=== PATIENT | male | born 1955 | race Caucasian/White ===

== ENCOUNTER 2020-02-02 15:02 | Outpatient (REF) | payer MEDICARE, OTHER, SELFPAY ==
[2020-02-09 14:32] LABS: Renin 0.74 ng/mL/h (0.25-5.82)
[2020-02-10 11:01] LABS: Metanephrine, Free 34 pg/mL (<=57); Normetanephrines, Free 110 pg/mL (<=148); Total Metanephrine, Free 144 pg/mL (<=205)
== END 2020-02-02 15:03 | disposition home or self-care (01) ==
LOC: HO.LAB 15:02
PROVIDERS: PCP Internal Medicine; Visit Provider Internal Medicine Endocrinology, Diabetes & Metabolism
DX: E27.8 Other specified disorders of adrenal gland (principal)
CPT/HCPCS: 83835; 84244

== ENCOUNTER 2020-02-03 06:43 | Outpatient (REF) | payer MEDICARE, OTHER, SELFPAY | END 2020-02-03 06:44 | disposition home or self-care (01) | LOC: HO.LAB 06:43 | PROVIDERS: PCP Internal Medicine; Visit Provider Internal Medicine Endocrinology, Diabetes & Metabolism | DX: E27.8 Other specified disorders of adrenal gland (principal) | CPT/HCPCS: 82088; 82533 ==

== ENCOUNTER 2020-02-09 07:01 | Outpatient (REF) | payer MEDICARE, MEDICAID, SELFPAY ==
--- NOTE | 2020-02-09 07:08 | CT_ITS ---
EXAMINATION: CT ABDOMEN WITHOUT AND WITH CONTRAST CLINICAL INFORMATION: Left adrenal mass. Inconclusive CT-guided biopsy 11/17/2019. Follow-up with CT adrenal characterization. COMPARISON: CT abdomen and pelvis 11/04/2019, CT-guided left adrenal biopsy 11/17/2019. CT chest 09/09/2019, CT abdomen 03/10/2017. TECHNIQUE: CT abdomen is performed prior to and following 85 mL Omnipaque 350 contrast. Postcontrast images are obtained during both the portal venous phase and 15 minute delayed images. No oral contrast. Coronal and sagittal reformatted images are generated on the CT workstation and uploaded to PACS. DOSE LOWERING TECHNIQUES: This CT examination was performed using dose optimization techniques as appropriate, variously including the following: *Automated exposure control *Adjustment of mA and/or kV according to patient size (this includes techniques or standardized protocols for targeted exams where dose is matched to indication/reason for exam; i.e. extremities or head) *Use of iterative reconstruction technique DLP: 1061 mGy-cm FINDINGS: LUNG BASES: There is stable pleural-based nodule right posterior lateral base approximately 0.8 cm similar to prior studies dating back to 2017. There is also a 4 mm nodule series 7 image 1 right posterior lateral base similar to prior CT chest 09/09/2019. No airspace consolidation or effusion. LIVER, GALLBLADDER, AND BILIARY TREE: The liver is normal in size, shape, and attenuation. No focal hepatic lesion or biliary ductal dilatation is present. Prior cholecystectomy. Common duct unremarkable. PANCREAS: Normal. SPLEEN: Normal. Incidental stable splenule left upper quadrant, 1.3 cm. ADRENAL GLANDS: Right adrenal: Normal right adrenal. No mass or nodule. Left adrenal: There is a round mass left adrenal measuring 3.3 x 3.0 cm. Prior measurements are 3.3 x 3.[address] 11/04/2019 and 3.0 x 2.[address] 03/10/2017. The mass has coarse calcification within the nodule. There is subtle heterogeneous attenuation. The left adrenal mass density measurements are: 1. Non-contrast: 37 HU. 2. Portal venous phase: 56 HU. 3. Delayed phase: 60 HU. 4. Washout: There is no washout. Reference: Lipid rich adenoma if non-contrast density 10 HU or less. Absolute Washout = (CECT - Delay)/(CECT-NCCT) x 100% Adenoma if washout 52% or higher 10 minute delay; 60% or higher 15 minute delay. Relative Washout = (CECT - Delay)/(CECT) x 100% Adenoma if relative washout 38% or higher 10 minute delay; 40% or higher 15 minute delay. GASTROINTESTINAL TRACT: Small sliding hiatal hernia. No bowel obstruction or inflammatory changes in the bowel or mesentery. Portion appendix visualized appears normal. There is no abdominal ascites or fluid collection. ABDOMINAL WALL: No significant hernia is appreciated. LYMPH NODES: No lymphadenopathy. VASCULAR: Unremarkable. OSSEOUS STRUCTURES: No acute bony abnormality. There are scattered degenerative changes lower thoracic and lumbar spine. IMPRESSION: 1. Left adrenal mass 3.3 x 3.0 cm. Prior measurement approximately 3.0 x 2.[address] 2017. Lesion shows subtle heterogeneous enhancement with no washout on delayed imaging. The lesion remains indeterminate. No right adrenal mass. 2. Prior cholecystectomy. No ductal dilatation.
[2020-02-09 08:41] LABS: Blood Urea Nitrogen 15 mg/dL (9-16); Estimated Glomerular Filt Rate > 60
== END 2020-02-09 07:02 | disposition home or self-care (01) ==
LOC: HO.CT 07:01
PROVIDERS: PCP Internal Medicine; Visit Provider Internal Medicine Endocrinology, Diabetes & Metabolism
DX: E27.8 Other specified disorders of adrenal gland (principal)
CPT/HCPCS: 74170; 82565; 84520

== ENCOUNTER 2020-02-23 07:38 | Outpatient (REF) | payer MEDICARE, OTHER, SELFPAY ==
[2020-02-29 18:17] LABS: Dexamethasone 245 ng/dL
== END 2020-02-23 07:39 | disposition home or self-care (01) ==
LOC: HO.LAB 07:38
PROVIDERS: PCP Internal Medicine; Visit Provider Internal Medicine Endocrinology, Diabetes & Metabolism
DX: E27.8 Other specified disorders of adrenal gland (principal)
CPT/HCPCS: 80299

== ENCOUNTER 2020-03-09 08:20 | Outpatient (REF) | payer MEDICARE, OTHER, SELFPAY ==
--- NOTE | 2020-03-09 13:41 | PC.NURSE ---
Dr Santana asked for the patient to be booked for next week, I scheduled the patient for 03/15/20 at 3:30pm with Dr Santana. Patient was contacted and agreed to date and time.
[2020-03-14 15:11] LABS: Dexamethasone 383 ng/dL
[2020-03-16 15:02] LABS: Renin 0.74 ng/mL/h (0.25-5.82)
== END 2020-03-09 08:21 | disposition home or self-care (01) ==
LOC: HO.LAB 08:20
PROVIDERS: PCP Internal Medicine; Visit Provider Internal Medicine Endocrinology, Diabetes & Metabolism
DX: E27.8 Other specified disorders of adrenal gland (principal)
CPT/HCPCS: 80299; 82088; 82533; 84244

== ENCOUNTER → 2020-03-15 11:54 | Outpatient (REF) | payer MEDICARE, OTHER, SELFPAY ==
[2020-03-15 13:22] LABS: Cholesterol 136 mg/dL; HDL Cholesterol 40 mg/dL; LDL Cholesterol Calculated 53 mg/dl; Triglycerides 216 mg/dL
== END ==
LOC: HO.CARD 11:54
PROVIDERS: PCP Internal Medicine; Visit Provider Nurse Practitioner Family
DX: E78.5 Hyperlipidemia, unspecified (principal)
CPT/HCPCS: 80061

== ENCOUNTER → 2020-03-20 14:34 | Outpatient (BNVA) | payer MEDICARE, OTHER, SELFPAY | PROVIDERS: PCP Internal Medicine; Visit Provider Nurse Practitioner Family | DX: Z12.11 Encounter for screening for malignant neoplasm of colon (principal); F17.200 Nicotine dependence, unspecified, uncomplicated; Z79.82 Long term (current) use of aspirin; Z79.899 Other long term (current) drug therapy; Z79.84 Long term (current) use of oral hypoglycemic drugs | CPT/HCPCS: Q3014 ==

== ENCOUNTER → 2020-03-21 07:08 | Outpatient (REF) | payer MEDICARE, OTHER, SELFPAY ==
--- NOTE | 2020-03-21 | NM_ITS ---
Myocardial perfusion study Indication: Preoperative cardiovascular risk patient with chest paindisease with underlying coronary artery to evaluate for myocardial ischemia Technique: The patient was brought in for a Lexiscan perfusion study on 03/21/2020. Patient performed low-level exercise and was injected 0.4 mg of Lexiscan intravenously. Within a minute of injection, 25 mCi of sestamibi was given intravenously. Images were obtained using the SPECT gamma camera interlaced with the gating device. Images were obtained in supine position. Resting perfusion study was performed on 03/26/2020. Patient was administered 25 mCi of sestamibi intravenously at rest. Images were then obtained in supine position. Images obtained with and without CT attenuation. Total DLP 79 mgy-cm. Images were processed with the software and compared side to side in short axis, horizontal long axis and vertical long axis views. Findings: The stress perfusion study showed non attenuated images show moderately reduced uptake in the inferior wall of the LV myocardium and mildly reduced uptake in the apex of the LV myocardium. Remainder of the LV myocardium is normally perfused. Attenuation corrected images show mildly to moderately the basal inferior as well as mildly reduced uptake in the apex of the LV myocardium. The gated study shows normal LV systolic function with calculated LVEF of 58%. LV cavity is normal in size. The gated study shows normal systolic wall thickening and contraction of segments. Resting study shows non attenuated images show mildly reduced uptake in the basal and mid inferior wall of the LV myocardium. Attenuation corrected images show mildly reduced uptake in the apex of the LV myocardium. Gating at rest reveals normal systolic wall motion with ejection fraction at 55%. The findings are consistent with small area of mild intensity basal inferior wall ischemia. NM/NM niharika perf SPECT rest & str Impression: 1. Myocardial perfusion imaging study shows small area of mild intensity basal inferior wall ischemia 2. Gated LVEF is 58% 3. Transient ischemic dilatation not present EKG is nondiagnostic for ischemia
--- NOTE | 2020-03-21 07:10 | CA_ITS ---
Acquisition Time: 2020-03-21 08:41:29 Total Exercise Time: 00:02:00 Test Indications: I25.10 Medications: SEE CHART Protocol: LEXISCAN Max HR: 093 BPM 60% of Pred: 155 BPM Max BP: 136/076 mmHG Max Work Load: 1.0 METS Pharmacological stress test using Lexiscan, while sitting and kicking his feet. Pt tolerated well, denies any anginal sx. EKG without any arrhythmias. Non-diagnostic for ischemia. Normotensive response to exercise. Test reviewed with Dr. Ortiz Referred By: Lorraine Lara Overread By: Junior Berman
--- NOTE | 2020-03-21 07:10 | CA_ITS ---
Transthoracic Echocardiogram Patient (Last, First, Middle): Sean Hinkle, Gender: Male Date of : 1955 Age: 64 Procedure Date: 03/21/2020 Procedure Type: Transthoracic Echocardiogram Location: OP Height: 170.18 cm Weight: 104.33 kg BSA: 2.15 m2 Heart Rate: bpm BP: 130 / 68 mmHg Carriage Rider: MINRA Referring MD: Lorraine Lara FELT FINISHING SUPERVISOR-C Janitor Custodian: Jonah Umanzor MD Symptoms: I10 HTN, I25.10 CAD Study Quality: Good ECG Rhythm: Sinus Conclusions: - 1. Normal LV systolic function with impaired relaxation filling pattern 2. Normal cardiac valvular Doppler 3. Normal RV systolic pressure 4. No pericardial effusion Findings Left Ventricle Normal left ventricular size, thickness, and systolic function. The visually estimated ejection fraction is between 55-60%. Spectral Doppler is indicative of an impaired relaxation filling pattern. E/E prime ratio is between 8 and 15 consistent with indeterminate filling pressures. Right Ventricle Normal right ventricular cavity size and systolic function. Atria The left atrium is likely dilated. There is no evidence of interatrial shunt. The right atrium is normal in size. Aortic Valve Normal aortic valve structure and function. There is no aortic valve stenosis. There is no aortic valve regurgitation. Mitral Valve Normal mitral valve structure and function. There is trace mitral valve regurgitation. There is no mitral valve stenosis. Pulmonic Valve The pulmonic valve is likely normal. Tricuspid Valve Normal tricuspid valve structure. There is trace tricuspid valve regurgitation. The right ventricular systolic pressure is normal. The right ventricular systolic pressure is 24 mmHg. Great Vessels All visible segments of the aorta are normal in size. The pulmonary artery was not well visualized. Venous The inferior vena cava is normal in size and collapses greater than 50% with inspiration. Pericardium/Pleural There is no evidence of pericardial effusion. Prior Study Comparison No prior study available for comparison. Measurements 2D Linear Measurements IVSd: 1.12 0.6-0.9/0.6-1.0 cm LVIDd: 5.45 3.9-5.3/4.2-5.9 cm LVIDd Index: 2.53 2.4-3.2/2.2-3.1 cm/m2 LVIDs: 3.50 2.0-3.6 cm LVPWd: 1.12 0.7-1.1 cm Ao Root: 3.70 2.1-3.5 cm LA Diam: 3.90 2.7-3.8/3.0-4.0 cm LAIDs Index: 1.81 1.5-2.3 cm/m2 LV Mass: 304.59 67-162/88-224 g LV Mass Index: 141.67 43-95/49-115 g/m2 LVOT Diam: 2.60 3.0+(-)1.3 cm 2D Systolic Function EF 4C: 51.90 >55% EF 2C: 53.20 >55% Mitral Valve MV Pk E: 0.79 MV PK A: 1.16 MV Decel Time: 299.00 E/A: 0.70 E'Lateral: 7.54 E'Medial: 6.58 E/E' Med: 12.00 E/E' Lat: 10.50 Aortic Valve AoV Pk Mario: 1.52 AoV Mn Mario: 1.11 AoV VTI: 0.40 AoV Pk Grad: 9.00 Aov Mn Grad: 6.00 DIONTE Cont.VTI: 3.25 LVOT LVOT Pk Mario: 1.05 LVOT Mn Mario: 0.66 LVOT VTI: 0.25 LVOT Pk Grad: 4.00 LVOT Mn Grad: 2.00 LVOT Diam: 2.60 LVOT Area: 5.31 Diastolic Function MV Pk E: 0.79 MV Pk A: 1.16 E/A: 0.70 E'Medial: 6.58 E/E' Med: 12.00 E' Laterial: 7.54 E/E' Lat: 10.50 Tricuspid Valve TR Pk Mario: 2.30 TR Pk Grad: 21.00 RA Press: 3.00 RVSP: 24.00 Great Vessels Aorta Ao Root-2D: 3.70 2.0-3.7 cm Ao Asc: 3.30 2.1-3.4 cm Pulmonary Valve PV Pk Mario: 1.22 Peak PV Grad: 6.00 Updated in Other Vendor System with Status of Final Jonah Umanzor MD electronically signed on 03/21/2020 1:35:52 PM with status of Final
== END ==
LOC: HO.CARD 07:08
PROVIDERS: PCP Internal Medicine; Visit Provider Nurse Practitioner Family
DX: Z01.810 Encounter for preprocedural cardiovascular examination (principal); R07.9 Chest pain, unspecified; I25.10 Atherosclerotic heart disease of native coronary artery without angina pectoris; I10 Essential (primary) hypertension; E66.9 Obesity, unspecified; E11.9 Type 2 diabetes mellitus without complications
CPT/HCPCS: 78452; 93017; 93306; A9500; J0280; J2785

== ENCOUNTER → 2020-03-29 10:08 | Outpatient (BNVA) | payer MEDICARE, OTHER, SELFPAY | PROVIDERS: PCP Internal Medicine; Visit Provider Nurse Practitioner Family | DX: Z13.89 Encounter for screening for other disorder (principal) | CPT/HCPCS: Q3014 ==

== ENCOUNTER 2020-04-06 11:28 | Day surgery (SDC) | payer MEDICARE, OTHER, SELFPAY ==
--- NOTE | 2020-04-04 15:00 | P.CONAN_ITS ---
Documented by User: Brisa Dawson 04/04/20 15:09 HPI - Anesthesia Eval Consult details Narrative: 64yo M for Upper Endoscopy and Colonoscopy Recent cardiac w/u for [place] for [place] [facility] [place] [facility] cardiac risk. [facility] Past Medical History Medical History Anxiety and depression Back pain BPH (benign prostatic hyperplasia) CAD (coronary artery disease) Chest pain COPD (chronic obstructive pulmonary disease) Cough Diabetes mellitus HLD (hyperlipidemia) HTN (hypertension) Hyperthyroidism Left adrenal mass Lung nodule Obesity Smoker Family History Family History Father Cancer Mother Lung cancer Brother Heart attack Surgical History Surgical History History of cardiac cath Hx of colonoscopy Hx of esophagogastroduodenoscopy Social History Social History (Updated 04/06/20 @ 12:18 by Aye Phoenix) Alcohol intake: current Alcohol intake frequency: does not drink Smoking Status: Current every day smoker Packs Per Day: 1 Smoked in Last 30 Days: Yes Use of substances other than those prescribed or required for medical reasons: No Substance Use Type: Marijuana Advance Directives: No Advance Directives Information Provided: Yes Advance Directives Date on File: 02/09/20 Recently lost weight without trying: No Meds Allergies Allergy/AdvReac Type Severity Reaction Status Date / Time Penicillins [PENICILLINS] Allergy Severe THROAT Verified 03/20/20 14:35 SWELLING penicillin V Allergy Unknown anaphylaxis Verified 03/20/20 14:35 Home Medications Medication Instructions Recorded Confirmed Type aspirin 81 mg tablet,delayed 81 mg PO BEDTIME 03/15/20 03/29/20 History release atorvastatin 40 mg tablet 40 mg PO BEDTIME 03/15/20 03/29/20 History cyclobenzaprine 10 mg tablet 10 mg PO TID 03/15/20 03/29/20 History dexamethasone 1 mg tablet 1 mg PO BEDTIME 03/15/20 03/29/20 History doxycycline monohydrate 100 mg 100 mg PO DAILY 03/15/20 03/29/20 History capsule esomeprazole magnesium 40 mg 40 mg PO DAILY 03/15/20 03/29/20 History capsule,delayed release fenofibrate nanocrystallized 48 mg 48 mg PO QAM 03/15/20 03/29/20 History tablet fluoxetine 40 mg capsule 40 mg PO DAILY 03/15/20 03/29/20 History glipizide 10 mg tablet, extended 10 mg PO DAILY 03/15/20 03/29/20 History release 24 hr hydroxyzine HCl 50 mg tablet 50 mg PO BEDTIME 03/15/20 03/29/20 History ibuprofen 800 mg tablet 800 mg PO TID PRN 03/15/20 03/29/20 History isosorbide mononitrate 60 mg 60 mg PO QAM 03/15/20 03/29/20 History tablet,extended release 24 hr lisinopril 10 1 tab PO QAM 03/15/20 03/29/20 History mg-hydrochlorothiazide 12.5 mg tablet metformin 1,000 mg tablet 1,000 mg PO DAILY 03/15/20 03/29/20 History methimazole 5 mg tablet 5 mg PO QAM 03/15/20 03/29/20 History tamsulosin 0.4 mg capsule 0.4 mg PO BEDTIME 03/15/20 03/29/20 History Exam Exam Date and Time: April 04, 2020 1500 Pertinent Lab Results Pertinent Lab Results: Laboratory Tests 11/17/19 11/17/19 02/09/20 05:13 05:13 08:08 WBC 10.3 Hgb 14.2 Hct 42.9 Plt Count 191 Sodium 139 Potassium 4.8 Chloride 101 BUN 15 Creatinine 0.97 Narrative Narrative: EKG 02/2020: SR, old inferior Q waves, no changes. Echo done 03/21 shows EF 55-60%, impaired relaxation, no valve abn. Nuclear stress test 03/21 shows small area of mild basal inferior wall ischemia, no TID. Low risk study. Assessment and Plan Assessment Anesthesia Assessment: Chart Reviewed Documented by User: Aye Phoenix 04/06/20 12:47 PMF Past Medical History Medical History Anxiety and depression Back pain BPH (benign prostatic hyperplasia) CAD (coronary artery disease) Chest pain COPD (chronic obstructive pulmonary disease) Cough Diabetes mellitus HLD (hyperlipidemia) HTN (hypertension) Hyperthyroidism Left adrenal mass Lung nodule Obesity Smoker Family History Family History Father Cancer Mother Lung cancer Brother Heart attack Family history of problems with anesthesia: No Surgical History Surgical History History of cardiac cath Hx of colonoscopy Hx of esophagogastroduodenoscopy History of Problems with Anesthesia: No Social History Social History (Updated 04/06/20 @ 12:18 by Aye Phoenix) Alcohol intake: current Alcohol intake frequency: does not drink Smoking Status: Current every day smoker Packs Per Day: 1 Smoked in Last 30 Days: Yes Use of substances other than those prescribed or required for medical reasons: No Substance Use Type: Marijuana Advance Directives: No Advance Directives Information Provided: Yes Advance Directives Date on File: 02/09/20 Recently lost weight without trying: No Meds Allergies Allergy/AdvReac Type Severity Reaction Status Date / Time Penicillins [PENICILLINS] Allergy Severe THROAT Verified 03/20/20 14:35 SWELLING penicillin V Allergy Unknown anaphylaxis Verified 03/20/20 14:35 Home Medications Medication Instructions Recorded Confirmed Type aspirin 81 mg tablet,delayed 81 mg PO BEDTIME 03/15/20 03/29/20 History release atorvastatin 40 mg tablet 40 mg PO BEDTIME 03/15/20 03/29/20 History cyclobenzaprine 10 mg tablet 10 mg PO TID 03/15/20 03/29/20 History dexamethasone 1 mg tablet 1 mg PO BEDTIME 03/15/20 03/29/20 History doxycycline monohydrate 100 mg 100 mg PO DAILY 03/15/20 03/29/20 History capsule esomeprazole magnesium 40 mg 40 mg PO DAILY 03/15/20 03/29/20 History capsule,delayed release fenofibrate nanocrystallized 48 mg 48 mg PO QAM 03/15/20 03/29/20 History tablet fluoxetine 40 mg capsule 40 mg PO DAILY 03/15/20 03/29/20 History glipizide 10 mg tablet, extended 10 mg PO DAILY 03/15/20 03/29/20 History release 24 hr hydroxyzine HCl 50 mg tablet 50 mg PO BEDTIME 03/15/20 03/29/20 History ibuprofen 800 mg tablet 800 mg PO TID PRN 03/15/20 03/29/20 History isosorbide mononitrate 60 mg 60 mg PO QAM 03/15/20 03/29/20 History tablet,extended release 24 hr lisinopril 10 1 tab PO QAM 03/15/20 03/29/20 History mg-hydrochlorothiazide 12.5 mg tablet metformin 1,000 mg tablet 1,000 mg PO DAILY 03/15/20 03/29/20 History methimazole 5 mg tablet 5 mg PO QAM 03/15/20 03/29/20 History tamsulosin 0.4 mg capsule 0.4 mg PO BEDTIME 03/15/20 03/29/20 History Exam Height,Weight and Vital Signs: Vital Signs Temp Pulse Resp BP Pulse Ox 04/06/20 11:47 97.5 F 66 18 146/62 H 96 Pertinent Lab Results Pertinent Lab Results: Lab Results 04/06/20 Range/Units 11:45 POC Glucose 106 (60-115) mg/dL Airway Mallampati Class: I TM Dist: >3cm Neck ROM: Full Denture: Upper and Lower Heart: RRR Lungs: CTAB Assessment and Plan Assessment Anesthesia Assessment: Anesthesia Plan Discussed and Chart Reviewed Final Anesthetic Review NPO: Yes ASA Class: III Final Preanesthetic Review: No Changes in Pt Med Stat, Meds/Allgs Chart Reviewed, Consent Obtained/Reviewed and Anes Risks/Benef Reviewed Patient Risk: Intermediate Procedure Risk: Low Anesthetic Plan Anesthetic Plan: MAC: Disposition: Standard PACU
[2020-04-06 11:33] VITALS: BMI 36.3
[2020-04-06 11:47] VITALS: BP 146/62; PULSE 66; RESP 18; TEMP 36.4; O2SAT 96
[2020-04-06 11:49] LABS: Glucose, Whole Blood 106 mg/dL (60-115)
[2020-04-06] MEDS: Lactated Ringers 1,000 ML 100 ML IVCONT (11:53)
--- NOTE | 2020-04-06 12:02 | W.PM.OPN ---
Operative Note Operative Note Date of Service: 04/06/20 Narrative: Pre-op diagnosis: Colon cancer screening, hx of colon polyps, GERD Post-op diagnosis: other (Colon polyps, diverticulosis, hemorrhoids, Gastritis, Gastric and duodenal nodules) Procedure: FLEXIBLE TRANSORAL UPPER GASTROINTESTINAL ENDOSCOPY WITH BIOPSIES AND COLONOSCOPY TILL CECUM WITH BIOPSIES AND SNARE POLYPECTOMY UPPER ENDOSCOPY Consent: Indications for the procedure and potential complications of bleeding, perforation, reaction to medications and missed diagnosis were discussed with the patient and informed consent was obtained. Instrument: Olympus GIF H 190 mid size upper endoscope Monitoring: Vital signs and clinical assessment, continuous EKG monitoring, Pulse oximetry, Carbon Dioxide monitoring and blood pressure monitoring were done throughout the procedure. Procedure: The patient was placed in the left lateral decubitis position and pre-procedure medications were administered and a bite block was placed. The endoscope was inserted into the mouth and advanced under direct vision to the third part of duodenum. A careful inspection was made as the upper endoscope was withdrawn including a retroflexed examination of the proximal stomach; Findings and interventions are described below. Findings: Larynx: Normal Esophagus: GE junction at 40 cms. No esophagitis. Stomach: Mild gastric erythema - Biopsies were obtained. A 10-12 mm benign appearing nodule in the antrum - biopsied. . Grade 2 flap valve on retroflexed examination of the cardia. Duodenum: Prominent folds/nodule in the apex of the bulb - biopsied. Normal descending duodenum Intervention: Biopsies as noted above COLONOSCOPY PROCEDURE NOTE Consent: Indications for the procedure and potential complications of bleeding, perforation, reaction to medications and missed diagnosis were discussed with the patient and informed consent was obtained. Instrument: Olympus PCF H 190 L variable stiffness pediatric colonoscope Monitoring: Vital signs and clinical assessment, intermittent blood pressure monitoring, continuous EKG monitoring, Pulse oximetry and Carbon Dioxide monitoring were done throughout the procedure. Colon withdrawl time was 28 minutes. Procedure: The patient was placed in the left lateral decubitis position and pre-procedure medications were administered. After a digital rectal examination of the ano-rectum, the video colonoscope was inserted into the rectum and advanced through the colon to the cecum. The colonoscope was slowly withdrawn in a retrograde panoramic fashion and the colon mucosa was carefully examined including a retroflexed view of the rectum. Findings and interventions are described below. Procedure Difficulty: Without difficulty Findings: Terminal Ileum: Not evaluated Cecum: A 10 mm sessile polyp removed with a cold snare and polyp was not retrieved. Two 7-8 mm sessile polyps removed with a cold bx. Ascending Colon: A 10 mm sessile polyp removed by a cold snare and polyp was not retrieved. Transverse Colon: A 15 mm sessile polyp removed with a hot snare. Descending Colon: Normal Sigmoid Colon: A few 5-10 mm diminutive polyps - two were biopsied. Moderate diverticulosis Rectum: Normal Ano-rectum: Moderate internal hemorrhoids Colon preparation: Good after some irrigation Impression and Post Procedure Diagnosis: Endoscopy Findings: STOMACH: Mild gastric erythema - Biopsies were obtained. A 10-12 mm benign appearing nodule in the antrum - biopsied. Grade 2 flap valve on retroflexed examination of the cardia. DUODENUM: Prominent folds/nodule in the apex of the bulb - biopsied. Normal descending duodenum Colonoscopy Findings: Five polyps removed (two polyps were not retrieved. A few 5-10 mm diminutive polyps - two were biopsied. Moderate diverticulosis seen in the sigmoid colon Moderate hemorrhoids on retroflexed exam. Plan: Await pathology results Patient to schedule a FU appt in the GI Clinic with Repeat Colonoscopy interval based on path results - in 5 years if polyps are adenomatous and due to a history of colon polyps.. Above findings were reviewed with the patient and colon polyps and diverticulosis handouts were given in the discharge area Surgeon: Nilay Del Rosario MD Anesthesia: MAC (ANDREW Gentile) Estimated blood loss (mL): 0 Pathology: other (A. Gastric antrum, B. Gastric nodule, C. Nodule duodenal bulb, D. AC polyps x 2, E. TC polyp x 1, F. SC polyps) Condition: stable Disposition: PACU
--- NOTE | 2020-04-06 12:02 | MHC.SHP ---
Pre-Procedural Eval Section A The patient is an INPATIENT: No Changes since office visit: Yes Patient answered all questions; No Cold of Flu in the past 2 weeks, No New Medical Problems and No Changes in Medication The History & Physical has been completed within 30 days and I have reviewed it.: Yes Section B Chief Complaint: screening,atypical chest pain Allergies: Allergies Allergy/AdvReac Type Severity Reaction Status Date / Time Penicillins [PENICILLINS] Allergy Severe THROAT Verified 03/20/20 14:35 SWELLING penicillin V Allergy Unknown anaphylaxis Verified 03/20/20 14:35 Plan Patient has been examined and remains a candidate for the planned procedure
[2020-04-06] MEDS: Albuterol Sulfate (0.083%) 2.5 MG/3 ML VIAL.NEB INHALE (12:45)
[2020-04-06 12:48] VITALS: PULSE 72
[2020-04-06 14:01] VITALS: BP 151/22; PULSE 77; RESP 20; TEMP 36.1; O2SAT 95
[2020-04-06 14:16] VITALS: BP 140/75; PULSE 71; RESP 23; TEMP 36.1; O2SAT 94
== END 2020-04-06 14:53 | disposition home or self-care (01) ==
PROVIDERS: PCP Internal Medicine; Visit Provider Internal Medicine Gastroenterology
PROC: (CPT 45385; principal; 2020-04-06 13:10)
DX: Z12.11 Encounter for screening for malignant neoplasm of colon (principal); D12.0 Benign neoplasm of cecum; D12.3 Benign neoplasm of transverse colon; K63.5 Polyp of colon; K57.30 Diverticulosis of large intestine without perforation or abscess without bleeding; K64.8 Other hemorrhoids; K29.70 Gastritis, unspecified, without bleeding; K21.9 Gastro-esophageal reflux disease without esophagitis; Z86.010 Personal history of colon polyps; R07.89 Other chest pain; E11.9 Type 2 diabetes mellitus without complications; I25.10 Atherosclerotic heart disease of native coronary artery without angina pectoris; Z79.82 Long term (current) use of aspirin; Z79.84 Long term (current) use of oral hypoglycemic drugs; Z88.0 Allergy status to penicillin
CPT/HCPCS: 45385; 45380; 43239; 82947; 88305; 88342; 94640

== ENCOUNTER 2020-05-04 20:43 | Emergency (ER) | payer MEDICARE, OTHER, SELFPAY ==
[2020-05-04 20:45] VITALS: BP 140/77; PULSE 86; RESP 24; TEMP 37; O2SAT 94; BMI 36.0
--- NOTE | 2020-05-04 23:37 | PC.NURSE ---
Pt waiting to be seen, no sign of distress.
--- NOTE | 2020-05-05 00:57 | CT_ITS ---
EXAMINATION: CT ANGIOGRAM OF THE CHEST WITH AND WITHOUT CONTRAST (CT PULMONARY ANGIOGRAM FOR PE) CT ABDOMEN AND PELVIS WITH CONTRAST CLINICAL INFORMATION: Chest pain, status post adrenal resection. Left lower quadrant pain. Distention. COMPARISON: 09/09/2019 and 11/04/2019 TECHNIQUE: Prior to contrast administration, noncontrast localization images were obtained. Subsequently, multidetector volumetric imaging was performed from the thoracic inlet to below the diaphragms following the administration of 85 mL Omnipaque 350 intravenous contrast. This was followed by multidetector acquisition of the abdomen and pelvis. No contrast reaction reported Sagittal, coronal, and MIP oblique sagittal reformatted images were obtained on the CT workstation, uploaded to PACS, and reviewed. Total exam dose-length product 1266 mGy-cm FINDINGS: QUALITY OF STUDY/CONTRAST BOLUS: Satisfactory. PULMONARY ARTERIES: No central or segmental pulmonary emboli. THORACIC AORTA: No aneurysm or dissection. LUNG: The central airways are patent. Mild bronchial wall thickening noted. Dependent atelectasis. Somewhat nodular appearance at the posterior right base measuring 0.8 cm may be atelectatic, with no nodule previously present. PLEURA: No pleural effusion or pneumothorax. MEDIASTINUM: Normal heart size. No pericardial effusion. No hilar or mediastinal lymphadenopathy. No evidence of septal bowing or right heart strain. CHEST WALL/AXILLA: No axillary or internal mammary lymphadenopathy. Gas in the soft tissues of the left chest wall extending inferiorly. LIVER, GALLBLADDER, AND BILIARY TREE: The liver is normal in size, shape, and attenuation. No focal hepatic lesion or biliary ductal dilatation is present. Cholecystectomy. PANCREAS: Unremarkable. SPLEEN: Unremarkable. ADRENAL GLANDS: The right adrenal gland is unremarkable. Resection of the left adrenal gland with a pocket of fluid and gas at the site of resection. Additional scattered gas seen near the spleen. Minimal free intraperitoneal air noted. KIDNEYS AND URETERS: The kidneys are normal in size, shape, and attenuation. No hydronephrosis, hydroureter, or calculi seen. Mild symmetric perinephric stranding. BLADDER: Unremarkable. GASTROINTESTINAL TRACT: The stomach is unremarkable. Normal caliber small bowel. No obstruction. Normal appendix. No colonic wall thickening or acute inflammatory change. No significant free fluid. ABDOMINAL WALL: Bilateral fat-containing inguinal hernias. Small amount of gas along the left abdominal wall soft tissues. LYMPH NODES: Normal. VASCULAR: Normal caliber aorta with mild atherosclerotic calcification. PELVIC VISCERA: The prostate and seminal vesicles are unremarkable. OSSEOUS STRUCTURES: No acute or suspicious osseous abnormality. Degenerative changes throughout the spine. CT/CT angio chest PE protocol IMPRESSION: 1. No pulmonary embolism. 2. Dependent atelectasis in the lungs. 0.8 cm right basilar nodular opacity may be atelectatic, as it is not seen on prior chest CT. That said, suggest 3 month follow-up chest CT to reevaluate. 3. Postsurgical changes of left adrenal gland resection. Gas present at the resection site and along the chest and abdominal wall. Minimal free intraperitoneal air. VTE: negative
[2020-05-05 01:20] VITALS: PULSE 73; O2SAT 96
[2020-05-05] MEDS: Albuterol Sulfate (0.083%) 2.5 MG/3 ML VIAL.NEB INHALE (01:20)
[2020-05-05 01:24] LABS: Basophils Percent Auto 0.3 % (0-2); Eosinophils Absolute Auto 0.1 X10*3/uL (0.0-0.4); Eosinophils Percent Auto 0.8 % (0-4); Hematocrit 43.6 % (42-52); Hemoglobin 14.8 g/dl (14.0-18.0); Imm Gran Abs Auto 0.04 X10*3/uL (0.00-0.03); Imm Gran Pct Auto 0.3 % (0.0-0.4); Lymphocytes Absolute Auto 3.2 X10*3/uL (1.2-4.9); Lymphocytes Percent Auto 25.7 % (20-40); MANUAL DIFF FLAG NO; Mean Corpuscular HGB Conc 33.9 g/dl (31.0-36.0); Mean Corpuscular Hemoglobin 30.2 pg (27.0-33.0); Mean Platelet Volume 9.2 fL (9.4-12.4); Monocytes Percent Auto 8.1 % (2-11); Neutrophils Percent Auto 64.8 % (45-73); Platelet Count 190 X10*3/uL (160-400); White Blood Count 12.4 X10*3/uL (4.8-10.8)
[2020-05-05 01:28] VITALS: O2SAT 93
[2020-05-05] MEDS: ondansetron HCL 4 MG/2 ML VIAL IVPUSH (01:28)
[2020-05-05] MEDS: Morphine Sulfate 4 MG/ML CARTRIDGE IVPUSH ×2 (01:28→04:16)
[2020-05-05] MEDS: 0.9 % Sodium Chloride 1,000 ML 999 ML IV (01:29)
[2020-05-05 01:30] LABS: Prothrombin Time 11.5 SEC (10.8-13.0)
[2020-05-05 01:33] LABS: Partial Thromboplastin Time 28.1 SEC (24.1-38.0)
[2020-05-05 01:36] VITALS: RESP 30
[2020-05-05 01:42] LABS: Lactic Acid 1.7 mmol/L (0.5-2.0)
[2020-05-05 01:46] LABS: Alanine Aminotransferase 22 U/L (0-40); Albumin Level 4.2 g/dL (3.5-5.0); Alkaline Phosphatase 58 U/L (39-117); Anion Gap 15 (12-20); Aspartate Amino Transferase 18 U/L (5-37); Bilirubin Total 0.5 mg/dL (0.0-1.0); Blood Urea Nitrogen 15 mg/dL (9-16); Calcium 9.1 mg/dL (8.4-10.2); Carbon Dioxide 28 mmol/L (22-29); Chloride 100 mmol/L (96-108); Creatinine Clr Calc Pharmacy 95.2; Estimated Glomerular Filt Rate > 60; Glucose Random 125 mg/dL (60-115); Potassium 4.2 mmol/l (3.3-5.1); Sodium 139 mmol/L (135-145); Total Protein 6.9 g/dL (6.5-8.0)
[2020-05-05] MEDS: iohexoL 350 MG/ML 100 ML INFUS..BTL 85 ML IV (03:01)
--- NOTE | 2020-05-05 03:28 | ED_ITS ---
HPI - General Adult General Chief complaint: General Medical Stated complaint: SOB Time Seen by Provider: 05/05/20 00:57 Source: patient Mode of arrival: ambulatory Limitations: no limitations History of Present Illness HPI narrative: 64-year-old male who presents emergency department for evaluation chest pain, shortness of breath and abdominal pain. The patient had a left adrenal gland resection done on Thursday, (3 days prior) at [facility]. The patient that he had sudden onset shortness of breath and chest pain Thursday night. He describes the chest pain as a tightness across his posterior chest between his shoulders. The pain is worse with breathing and with coughing. He states that he is feeling short of breath and has dyspnea on exertion. He has had a cough which is nonproductive. He states he felt hot and cold at home and has had cold sweats. He has also had multiple episodes of loose diarrheal stool with no blood in the stool. The also states that the left lower quadrant surgical site has changed color. He has also had increased abdominal pain in the left lower quadrant area which he describes as a sharp pain which is worse with movement and with coughing. Related Data Home Medications Medication Instructions Recorded Confirmed aspirin 81 mg tablet,delayed 81 mg PO BEDTIME 03/15/20 03/29/20 release atorvastatin 40 mg tablet 40 mg PO BEDTIME 03/15/20 03/29/20 cyclobenzaprine 10 mg tablet 10 mg PO TID 03/15/20 03/29/20 dexamethasone 1 mg tablet 1 mg PO BEDTIME 03/15/20 03/29/20 doxycycline monohydrate 100 mg 100 mg PO DAILY 03/15/20 03/29/20 capsule esomeprazole magnesium 40 mg 40 mg PO DAILY 03/15/20 03/29/20 capsule,delayed release fenofibrate nanocrystallized 48 mg 48 mg PO QAM 03/15/20 03/29/20 tablet fluoxetine 40 mg capsule 40 mg PO DAILY 03/15/20 03/29/20 glipizide 10 mg tablet, extended 10 mg PO DAILY 03/15/20 03/29/20 release 24 hr hydroxyzine HCl 50 mg tablet 50 mg PO BEDTIME 03/15/20 03/29/20 ibuprofen 800 mg tablet 800 mg PO TID PRN 03/15/20 03/29/20 isosorbide mononitrate 60 mg 60 mg PO QAM 03/15/20 03/29/20 tablet,extended release 24 hr lisinopril 10 1 tab PO QAM 03/15/20 03/29/20 mg-hydrochlorothiazide 12.5 mg tablet metformin 1,000 mg tablet 1,000 mg PO DAILY 03/15/20 03/29/20 methimazole 5 mg tablet 5 mg PO QAM 03/15/20 03/29/20 tamsulosin 0.4 mg capsule 0.4 mg PO BEDTIME 03/15/20 03/29/20 Previous Rx's Medication Instructions Recorded methylcellulose (laxative) 500 mg 500 mg PO DAILY #30 tab 03/20/20 tablet morphine 15 mg PO Q4H PRN #15 tab 05/05/20 Allergies Allergy/AdvReac Type Severity Reaction Status Date / Time Penicillins [PENICILLINS] Allergy Severe THROAT Verified 03/20/20 14:35 SWELLING penicillin V Allergy Unknown anaphylaxis Verified 03/20/20 14:35 Review of Systems Review of Systems: Yes all other systems are reviewed and are negative Neurologic: Reports Abnormal speech present [facility] Past Medical History Medical History Anxiety and depression Back pain BPH (benign prostatic hyperplasia) CAD (coronary artery disease) Chest pain COPD (chronic obstructive pulmonary disease) Cough Diabetes mellitus HLD (hyperlipidemia) HTN (hypertension) Hyperthyroidism Left adrenal mass Lung nodule Obesity Smoker Surgical History History of cardiac cath Hx of colonoscopy Hx of esophagogastroduodenoscopy Family History Family History Father Cancer Mother Lung cancer Brother Heart attack Social History Social History Alcohol intake: unknown Smoking Status: Current every day smoker Packs Per Day: 1 Smoked in Last 30 Days: Yes Use of substances other than those prescribed or required for medical reasons: Yes Substance Use Type: Marijuana Substance Use Frequency: Daily Advance Directives: No Advance Directives Date on File: 02/09/20 Physical Exam Vital Signs: Vital Signs: Last Vital Signs Temp 98.6 F 05/04/20 20:45 Pulse 73 05/05/20 01:20 Resp 30 H 05/05/20 01:36 BP 140/77 H 05/04/20 20:45 Pulse Ox 93 05/05/20 01:28 Body Mass Index 36.0 Const: General: cooperative and in distress (Secondary to pain and appears to be short of breath) moderate Orientation/consciousness: oriented to person and oriented to place Limitations: no limitations HENMT: Head: Yes normal to inspection, Yes normocephalic and Yes atraumatic Ears: external ears normal General nose exam: Normal external nose present Face and sinus: Yes normal facial exam Mouth: Normal oral and palatal mucosa present Throat: Yes posterior oropharynx normal Eyes: Periorbital: periorbital findings normal Eyelids: Yes eyelids normal Conjunctivae: conjunctivae normal Sclerae: sclerae normal Corneas: corneas normal Pupils: Equal, round and reactive pupils present Direct Ophthalmoscopy: normal light reflex Neck: Neck: Yes full ROM, Yes no lymphadenopathy, Yes no meningeal signs, Yes trachea midline and Yes supple Chest: Chest palpation & inspection: normal inspection of the chest and normal palpation of entire chest wall Resp: Effort & Inspection: able to speak in complete sentences, audible wheezes and labored (Moderate) Auscultation: wheezes throughout Cardio: Rate: regular rate Rhythm: regular rhythm Heart sounds: S1 normal heart sound present, S2 normal heart sound present and no murmurs GI: Inspection: Yes normal to inspection Palpation (GI): Soft to palpation, Tenderness to palpation present (GI) in the LUQ (Moderate) and other (Ecchymosis with no erythema or increased warmth LLQ surgical site), no guar ding, not rigid and No hepatosplenomegaly present : General: Yes no CVA tenderness Back/Spine/Pelvis: Back: no CVA tenderness Cervical Spine: normal cervical lordosis Thoracic/Lumbar Spine: thoracic and lumbar spine normal to inspection Skin: Lesions: no lesions Rashes: no rashes Wounds: no wounds Neuro: General: oriented to person, oriented to place and no meningeal signs Cranial nerves: Yes Equal, round and reactive pupils present Cognition (Neuro): normal cognition Speech: Abnormal speech present Motor exam (neuro): 5/5 motor strength present throughout Extrem: General: Yes normal to inspection and Yes full ROM Psych: Appearance: well kempt Mental Status: mental status grossly normal Speech and movement: Normal speech and movement present Affect: normal affect Attitude: cooperative Thought process: Normal thought process present Thought content: Normal thought content present Course Course Course Narrative: 64-year-old male with a recent laparoscopic left adrenal gland resection who presents to emergency department for evaluation chest pain and left-sided abdominal pain. On presentation the patient was wheezing and did appear to be in distress secondary to his pain. He did have discoloration of the left lower quadrant surgical site which I believe is consistent with ecchymosis and not infection. He does have significant tenderness however with palpation of this area. I am that he may have intra-abdominal infection verses a pulmonary embolism. Therefore I ordered a CT scan of the chest abdomen and pelvis. There was also ordered to get morphine, Zofran and normal saline IV. I s also given albuterol nebulizer for his shortness of breath and wheezing. 0337: The patient's laboratory evaluation [place] an [place] [id number] otherwise was un[address]able. The CT pulmonary angiogram revealed no acute pulmonary embolism. CT abdomen pelvis with IV contrast revealed no acute process but the patient does have intra-abdominal air which is econdary to his recent laparoscopic surgery. The patient does feel significantly better after receiving the morphine and albuterol. The patient was ordered to get a 2nd dose of morphine 4 mg IV. The patient's pain is most likely secondary to postoperative pain and is not taking any medications at home therefore is given a prescription for morphine 15 mg every 4 hours as needed for pain. He was given printed instructions discharged home. He is advised to contact his surgeon at [facility] for re-evaluation within 2 days. [facility] search revealed multiple prescriptions for gabapentin and oxycodone for the patient's chronic pain. Given his recent surgery in severity of his pain, I do think that a morphine prescription is appropriate. Medical Decision Making Lab Data Result diagrams: 05/05/20 01:16 05/05/20 01:16 Labs: Lab Results 05/05/20 05/05/20 05/05/20 Range/Units 01:16 01:16 01:16 WBC 12.4 H (4.8-10.8) X10*3/uL RBC 4.90 (4.60-5.80) X10*6/uL Hgb 14.8 (14.0-18.0) g/dl Hct 43.6 (42-52) % MCV 89.0 (80-98) fL MCH 30.2 (27.0-33.0) pg MCHC 33.9 (31.0-36.0) g/dl RDW 13.0 (11.0-16.0) % Plt Count 190 (160-400) X10*3/uL MPV 9.2 L (9.4-12.4) fL Immature Gran % (Auto) 0.3 (0.0-0.4) % Neut % (Auto) 64.8 (45-73) % Lymph % (Auto) 25.7 (20-40) % [place] % (Auto) 8.1 (2-11) % Eos % (Auto) 0.8 (0-4) % Baso % (Auto) 0.3 (0-2) % Lymph # (Auto) 3.2 (1.2-4.9) X10*3/uL [place] # (Auto) 1.0 (0.1-1.2) X10*3/uL Eos # (Auto) 0.1 (0.0-0.4) X10*3/uL Baso # (Auto) 0.0 (0.0-0.2) X10*3/uL Abs Immat Gran (auto) 0.04 H (0.00-0.03) X10*3/uL Absolute Neuts (auto) 8.0 (2.0-8.3) X10*3/uL Absolute Nucleated RBC 0.000 (0.0-0.012) X10*3/uL Nucleated RBC % (auto) 0.0 (0.0-0.2) /100WBC PT 11.5 (10.8-13.0) SEC INR 1.0 (0.9-1.1) APTT 28.1 (24.1-38.0) SEC Sodium (135-145) mmol/L Potassium (3.3-5.1) mmol/l Chloride (96-108) mmol/L Carbon Dioxide (22-29) mmol/L Anion Gap (12-20) BUN (9-16) mg/dL Creatinine (0.5-1.4) mg/dL Estim Creat Clear Calc Estimated GFR Random Glucose (60-115) mg/dL Lactic Acid 1.7 (0.5-2.0) mmol/L Calcium (8.4-10.2) mg/dL Total Bilirubin (0.0-1.0) mg/dL AST (5-37) U/L ALT (0-40) U/L Alkaline Phosphatase (39-117) U/L Total Protein (6.5-8.0) g/dL Albumin (3.5-5.0) g/dL 05/05/20 Range/Units 01:16 WBC (4.8-10.8) X10*3/uL RBC (4.60-5.80) X10*6/uL Hgb (14.0-18.0) g/dl Hct (42-52) % MCV (80-98) fL MCH (27.0-33.0) pg MCHC (31.0-36.0) g/dl RDW (11.0-16.0) % Plt Count (160-400) X10*3/uL MPV (9.4-12.4) fL Immature Gran % (Auto) (0.0-0.4) % Neut % (Auto) (45-73) % Lymph % (Auto) (20-40) % [place] % (Auto) (2-11) % Eos % (Auto) (0-4) % Baso % (Auto) (0-2) % Lymph # (Auto) (1.2-4.9) X10*3/uL [place] # (Auto) (0.1-1.2) X10*3/uL Eos # (Auto) (0.0-0.4) X10*3/uL Baso # (Auto) (0.0-0.2) X10*3/uL Abs Immat Gran (auto) (0.00-0.03) X10*3/uL Absolute Neuts (auto) (2.0-8.3) X10*3/uL Absolute Nucleated RBC (0.0-0.012) X10*3/uL Nucleated RBC % (auto) (0.0-0.2) /100WBC PT (10.8-13.0) SEC INR (0.9-1.1) APTT (24.1-38.0) SEC Sodium 139 (135-145) mmol/L Potassium 4.2 (3.3-5.1) mmol/l Chloride 100 (96-108) mmol/L Carbon Dioxide 28 (22-29) mmol/L Anion Gap 15 (12-20) BUN 15 (9-16) mg/dL Creatinine 0.89 (0.5-1.4) mg/dL Estim Creat Clear Calc 95.2 Estimated GFR > 60 Random Glucose 125 H (60-115) mg/dL Lactic Acid (0.5-2.0) mmol/L Calcium 9.1 (8.4-10.2) mg/dL Total Bilirubin 0.5 (0.0-1.0) mg/dL AST 18 (5-37) U/L ALT 22 (0-40) U/L Alkaline Phosphatase 58 (39-117) U/L Total Protein 6.9 (6.5-8.0) g/dL Albumin 4.2 (3.5-5.0) g/dL Imaging Data CT scan - chest: Radiologist's impression: EXAMINATION: CT ANGIOGRAM OF THE CHEST WITH AND WITHOUT CONTRAST (CT PULMONARY ANGIOGRAM FOR PE) CT ABDOMEN AND PELVIS WITH CONTRAST CLINICAL INFORMATION: Chest pain, status post adrenal resection. Left lower quadrant pain. Distention. COMPARISON: 09/09/2019 and 11/04/2019 TECHNIQUE: Prior to contrast administration, noncontrast localization images were obtained. Subsequently, multidetector volumetric imaging was performed from the thoracic inlet to below the diaphragms following the administration of 85 mL Omnipaque 350 intravenous contrast. This was followed by multidetector acquisition of the abdomen and pelvis. No contrast reaction reported Sagittal, coronal, and MIP oblique sagittal reformatted images were obtained on the CT workstation, uploaded to PACS, and reviewed. Total exam dose-length product 1266 mGy-cm FINDINGS: QUALITY OF STUDY/CONTRAST BOLUS: Satisfactory. PULMONARY ARTERIES: No central or segmental pulmonary emboli. THORACIC AORTA: No aneurysm or dissection. LUNG: The central airways are patent. Mild bronchial wall thickening noted. Dependent atelectasis. Somewhat nodular appearance at the posterior right base measuring 0.8 cm may be atelectatic, with no nodule previously present. PLEURA: No pleural effusion or pneumothorax. MEDIASTINUM: Normal heart size. No pericardial effusion. No hilar or mediastinal lymphadenopathy. No evidence of septal bowing or right heart strain. CHEST WALL/AXILLA: No axillary or internal mammary lymphadenopathy. Gas in the soft tissues of the left chest wall extending inferiorly. LIVER, GALLBLADDER, AND BILIARY TREE: The liver is normal in size, shape, and attenuation. No focal hepatic lesion or biliary ductal dilatation is present. Cholecystectomy. PANCREAS: Unremarkable. SPLEEN: Unremarkable. ADRENAL GLANDS: The right adrenal gland is unremarkable. Resection of the left adrenal gland with a pocket of fluid and gas at the site of resection. Additional scattered gas seen near the spleen. Minimal free intraperitoneal air noted. KIDNEYS AND URETERS: The kidneys are normal in size, shape, and attenuation. No hydronephrosis, hydroureter, or calculi seen. Mild symmetric perinephric stranding. BLADDER: Unremarkable. GASTROINTESTINAL TRACT: The stomach is unremarkable. Normal caliber small bowel. No obstruction. Normal appendix. No colonic wall thickening or acute inflammatory change. No significant free fluid. ABDOMINAL WALL: Bilateral fat-containing inguinal hernias. Small amount of gas along the left abdominal wall soft tissues. LYMPH NODES: Normal. VASCULAR: Normal caliber aorta with mild atherosclerotic calcification. PELVIC VISCERA: The prostate and seminal vesicles are unremarkable. OSSEOUS STRUCTURES: No acute or suspicious osseous abnormality. Degenerative changes throughout the spine. CT/CT abdomen pelvis w con IMPRESSION: 1. No pulmonary embolism. 2. Dependent atelectasis in the lungs. 0.8 cm right basilar nodular opacity may be atelectatic, as it is not seen on prior chest CT. That said, suggest 3 month follow-up chest CT to reevaluate. 3. Postsurgical changes of left adrenal gland resection. Gas present at the resection site and along the chest and abdominal wall. Minimal free intraperitoneal air. VTE: negative Dictated By:KACEY BASSETT MD Signed By:<Electronically signed by KACEY BASSETT MD in OV>05/05/20 0310 DD/ 0057 TD/TT: Chef Manager: ROCK Discharge Plan Discharge Clinical Impression: Acute exacerbation of chronic obstructive pulmonary disease Abdominal pain Qualifiers: Abdominal location: left lower quadrant Qualified Code(s): R10.32 - Left lower quadrant pain Patient Disposition: Home, Self-Care Instructions: COPD (Chronic Obstructive Pulmonary Disease) (ED) Additional Instructions: Your blood work was unremarkable. The CT scan of your chest revealed no evidence of pneumonia and no blood clots in your lungs which is reassuring. The CT scan of your abdomen and pelvis did not reveal any abscess or signs of infection to explain your pain. The discoloration around year left lower surgical site is consistent with a bruise and not a skin infection. I believe that your pain is expected postoperative pain and it is located treated with pain medications at home. Take morphine 15 mg pills, 1 pill every 4 hours as needed for pain. This medication will make you sleepy, do not drive while taking this medication. This medication will make you constipated. Take [id number] Colace stool softener twice a day for 1 week. Take Metamucil 1 tsp daily for the next week. Follow-up with your surgeon at [facility] in 2 days. Please return to the emergency department if your symptoms get worse or if you develop any symptoms that are concerning to you. Prescriptions: New morphine 15 mg tablet 15 mg PO Q4H PRN (Reason: pain) Qty: 15 RF: 0 No Action lisinopril-hydrochlorothiazide 10-12.5 mg tablet 1 tab PO QAM RF: 0 isosorbide mononitrate 60 mg tablet extended release 24 hr 60 mg PO QAM RF: 0 aspirin 81 mg tablet,delayed release (DR/EC) 81 mg PO BEDTIME RF: 0 fluoxetine 40 mg capsule 40 mg PO DAILY RF: 0 atorvastatin 40 mg tablet 40 mg PO BEDTIME RF: 0 cyclobenzaprine 10 mg tablet 10 mg PO TID RF: 0 doxycycline monohydrate 100 mg capsule 100 mg PO DAILY RF: 0 ibuprofen 800 mg tablet 800 mg PO TID PRN (Reason: Pain) RF: 0 dexamethasone 1 mg tablet 1 mg PO BEDTIME RF: 0 methimazole 5 mg tablet 5 mg PO QAM RF: 0 esomeprazole magnesium 40 mg capsule,delayed release(DR/EC) 40 mg PO DAILY RF: 0 metformin 1,000 mg tablet 1,000 mg PO DAILY RF: 0 tamsulosin 0.4 mg capsule 0.4 mg PO BEDTIME RF: 0 hydroxyzine HCl 50 mg tablet 50 mg PO BEDTIME RF: 0 glipizide 10 mg tablet extended release 24hr 10 mg PO DAILY RF: 0 fenofibrate nanocrystallized 48 mg tablet 48 mg PO QAM RF: 0 Citrucel 500 mg tablet 500 mg PO DAILY Qty: 30 RF: 2
[2020-05-05 04:00] VITALS: RESP 24; O2SAT 97
[2020-05-05 04:30] VITALS: BP 128/70; PULSE 64; RESP 26; O2SAT 94
== END 2020-05-05 05:54 | disposition home or self-care (01) ==
PROVIDERS: Emergency Provider Emergency Medicine Emergency Medical Services; PCP Internal Medicine
DX: J44.1 Chronic obstructive pulmonary disease with (acute) exacerbation (principal); R10.32 Left lower quadrant pain; E11.9 Type 2 diabetes mellitus without complications; I10 Essential (primary) hypertension; F17.200 Nicotine dependence, unspecified, uncomplicated
CPT/HCPCS: 36415; 71275; 74177; 80053; 83605; 85025; 85610; 85730; 87040; 94640; 96361; 96374; 96375; 96376; 99284; J2270; J2405; Q9967

== ENCOUNTER → 2020-06-05 10:29 | Outpatient (BNVA) | payer MEDICARE, OTHER, SELFPAY | PROVIDERS: PCP Internal Medicine; Visit Provider Nurse Practitioner Family | DX: I25.10 Atherosclerotic heart disease of native coronary artery without angina pectoris (principal); R94.39 Abnormal result of other cardiovascular function study; E78.5 Hyperlipidemia, unspecified; E11.9 Type 2 diabetes mellitus without complications; I10 Essential (primary) hypertension; E66.9 Obesity, unspecified | CPT/HCPCS: 99212 ==

== ENCOUNTER → 2020-08-01 15:46 | Outpatient (BNVA) | payer MEDICARE, OTHER, SELFPAY | PROVIDERS: PCP Internal Medicine; Visit Provider Nurse Practitioner Family | DX: K40.90 Unilateral inguinal hernia, without obstruction or gangrene, not specified as recurrent (principal); D36.9 Benign neoplasm, unspecified site; R19.7 Diarrhea, unspecified; Z98.890 Other specified postprocedural states | CPT/HCPCS: 99212 ==

== ENCOUNTER → 2020-08-27 14:47 | Outpatient (BNVA) | payer MEDICARE, OTHER, SELFPAY | PROVIDERS: Visit Provider Nurse Practitioner Family | DX: K40.90 Unilateral inguinal hernia, without obstruction or gangrene, not specified as recurrent (principal); R10.9 Unspecified abdominal pain | CPT/HCPCS: 99212 ==

== ENCOUNTER 2020-08-30 10:15 | Outpatient (REF) | payer MEDICARE, SELFPAY ==
[2020-08-30 11:40] LABS: Anion Gap 14 (12-20); Blood Urea Nitrogen 15 mg/dL (9-16); Calcium 9.2 mg/dL (8.4-10.2); Carbon Dioxide 25 mmol/L (22-29); Chloride 104 mmol/L (96-108); Estimated Glomerular Filt Rate > 60; Glucose Random 184 mg/dL (60-115); Potassium 4.4 mmol/L (3.3-5.1); Sodium 139 mmol/L (135-145)
== END 2020-08-30 10:16 | disposition home or self-care (01) ==
LOC: HO.LAB 10:15
PROVIDERS: PCP Internal Medicine; Visit Provider Nurse Practitioner Family
DX: R10.9 Unspecified abdominal pain (principal)
CPT/HCPCS: 36415; 80048

== ENCOUNTER 2020-09-07 13:34 | Outpatient (REF) | payer MEDICARE, OTHER, SELFPAY ==
--- NOTE | ~2020-09-07 | CT_ITS ---
EXAMINATION: CT ABDOMEN AND PELVIS WITH CONTRAST CLINICAL INFORMATION: Abdominal pain COMPARISON: Previous CT scans of the abdomen and pelvis most recent April 2019 TECHNIQUE: Multidetector volumetric images were obtained from the superior aspect of the liver through the pubic symphysis following administration 85 mL of Omnipaque 350 intravenous contrast. Sagittal and coronal reformatted images were obtained on the technologist's workstation. Oral contrast: Yes This CT examination was performed using dose optimization techniques as appropriate, variously including the following: *Automated exposure control *Adjustment of mA and/or kV according to patient size (this includes techniques or standardized protocols for targeted exams where dose is matched to indication/reason for exam; i.e. extremities or head) *Use of iterative reconstruction technique DLP: 572 mGy-cm FINDINGS: LUNG BASES: There is a 7 x 10 mm right lower lobe pulmonary nodule axial image 7 series 6. The increased from 4 x 7 mm on previous exam. LIVER, GALLBLADDER, AND BILIARY TREE: The liver is low in attenuation suggestive of fatty infiltration. No focal liver lesion is seen. The liver is enlarged. The gallbladder is been removed. There is no biliary duct dilatation. PANCREAS: Unremarkable. SPLEEN: Unremarkable. ADRENAL GLANDS: The left adrenal gland is been removed. The right transplant is normal. KIDNEYS AND URETERS: The kidneys are normal in size, shape, and attenuation. No hydronephrosis, hydroureter, or calculi seen. No perinephric stranding. BLADDER: The bladder is not optimally distended. There may be diffuse bladder wall thickening. GASTROINTESTINAL TRACT: The small and large bowel are unremarkable. The appendix is unremarkable. ABDOMINAL WALL: There are are postsurgical changes to the lower abdominal wall post hernia repair. No recurrent abdominal wall hernia is seen. There are small bilateral inguinal hernias containing fat. LYMPH NODES: Normal. VASCULAR: There is evidence of atherosclerotic disease. No aneurysm is seen. PELVIC VISCERA: There are degenerative changes of the spine. OSSEOUS STRUCTURES: Unremarkable. CT/CT abdomen pelvis w con IMPRESSION: Fatty liver. Postsurgical changes following resection of the left adrenal gland. Interval increase in right lower lobe nodule.
[2020-09-07] MEDS: iohexoL 350 MG/ML 100 ML INFUS..BTL 85 ML IV (15:46)
== END 2020-09-07 13:35 | disposition home or self-care (01) ==
LOC: HO.CT 13:34
PROVIDERS: PCP Internal Medicine; Visit Provider Nurse Practitioner Family
DX: R10.9 Unspecified abdominal pain (principal); K40.90 Unilateral inguinal hernia, without obstruction or gangrene, not specified as recurrent
CPT/HCPCS: 74177; Q9967

== ENCOUNTER → 2020-09-20 09:11 | Outpatient (BNVA) | payer MEDICARE, OTHER, SELFPAY | PROVIDERS: Referring Provider Internal Medicine; Visit Provider Surgery | DX: K40.90 Unilateral inguinal hernia, without obstruction or gangrene, not specified as recurrent (principal) | CPT/HCPCS: 99212 ==

== ENCOUNTER 2020-10-01 06:07 | Day surgery (SDC) | payer MEDICARE, OTHER, SELFPAY ==
--- NOTE | 2020-09-28 10:46 | HO.ANESPROP2 ---
Documented by User: Brisa Dawson 09/28/20 10:51 HPI - Anesthesia Eval Consult details Narrative: 65yo M Bilateral Hernia Repair Inguinal with Mesh Stable cardiac visit 05/2020 [facility] Active Problems Active Problems: All Active Problems (Updated 09/20/20 @ 09:55 by Michael Gardner MD) Tubular adenoma (Acute) Inguinal hernia (Acute) GERD (gastroesophageal reflux disease) (Acute) Diverticulosis (Acute) Cough (Acute) Back pain (Acute) Anxiety and depression (Acute) Lung nodule (Acute) BPH (benign prostatic hyperplasia) (Acute) Hyperthyroidism (Acute) Abnormal nuclear stress test (Acute) HLD (hyperlipidemia) (Acute) CAD (coronary artery disease) (Acute) Preop cardiovascular exam (Acute) Chest pain (Acute) Obesity (Acute) Diabetes mellitus (Acute) HTN (hypertension) (Acute) COPD (chronic obstructive pulmonary disease) (Acute) Past Medical History Medical History (Updated 10/01/20 @ 07:59 by Aye Phoenix) Anxiety and depression Back pain BPH (benign prostatic hyperplasia) CAD (coronary artery disease) Chest pain COPD (chronic obstructive pulmonary disease) Cough Diabetes mellitus GERD (gastroesophageal reflux disease) H/O benign carcinoid tumor HLD (hyperlipidemia) HTN (hypertension) Hyperthyroidism Inguinal hernia Left adrenal mass Lung nodule Obesity Smoker Tubular adenoma Family History Family History Father Cancer Mother Lung cancer Brother Heart attack Family history of problems with anesthesia: No Surgical History Surgical History History of cardiac cath Hx of colonoscopy Hx of esophagogastroduodenoscopy History of Problems with Anesthesia: No Social History Social History Alcohol intake: unknown Patient Tobacco Use Status: Current everyday Tobacco user Cigarette Packs Per Day: 1 Use of substances other than those prescribed or required for medical reasons: Yes Substance Use Type: Marijuana Have you been hit, kicked, punched, or otherwise hurt by someone within the past year? If so, by whom?: No Are you DNR?: No Advance Directives: Yes Advance Directives on File: Yes Advance Directives Date on File: 02/09/20 Meds Allergies Allergy/AdvReac Type Severity Reaction Status Date / Time Penicillins [PENICILLINS] Allergy Severe THROAT Verified 09/20/20 09:29 SWELLING penicillin V Allergy Unknown anaphylaxis Verified 09/20/20 09:29 Home Medications Medication Instructions Recorded Confirmed Last Taken Type aspirin 81 mg tablet,delayed 81 mg PO BEDTIME 03/15/20 06/05/20 Unknown History release atorvastatin 40 mg tablet 40 mg PO BEDTIME 03/15/20 06/05/20 Unknown History cyclobenzaprine 10 mg tablet 10 mg PO TID 03/15/20 06/05/20 Unknown History dexamethasone 1 mg tablet 1 mg PO BEDTIME 03/15/20 06/05/20 Unknown History doxycycline monohydrate 100 mg 100 mg PO DAILY 03/15/20 06/05/20 Unknown History capsule fenofibrate nanocrystallized 48 mg 48 mg PO QAM 03/15/20 06/05/20 Unknown History tablet fluoxetine 40 mg capsule 40 mg PO DAILY 03/15/20 06/05/20 Unknown History glipizide 10 mg tablet, extended 10 mg PO DAILY 03/15/20 06/05/20 Unknown History release 24 hr hydroxyzine HCl 50 mg tablet 50 mg PO BEDTIME 03/15/20 06/05/20 Unknown History ibuprofen 800 mg tablet 800 mg PO TID PRN 03/15/20 06/05/20 Unknown History isosorbide mononitrate 60 mg 60 mg PO QAM 03/15/20 06/05/20 Unknown History tablet,extended release 24 hr lisinopril 10 1 tab PO QAM 03/15/20 06/05/20 Unknown History mg-hydrochlorothiazide 12.5 mg tablet metformin 1,000 mg tablet 1,000 mg PO DAILY 03/15/20 06/05/20 Unknown History methimazole 5 mg tablet 5 mg PO QAM 03/15/20 06/05/20 Unknown History tamsulosin 0.4 mg capsule 0.4 mg PO BEDTIME 03/15/20 06/05/20 Unknown History gabapentin 600 mg tablet 600 mg PO TID 06/05/20 06/05/20 Unknown History Exam Exam Date and Time: September 28, 2020 1046 Pertinent Lab Results Pertinent Lab Results: Laboratory Tests 05/05/20 08/30/20 01:16 10:34 WBC 12.4 H Hgb 14.8 Hct 43.6 Plt Count 190 Sodium 139 Potassium 4.4 Chloride 104 Carbon Dioxide 25 BUN 15 Creatinine 0.97 Narrative Narrative: Echo done 03/21 shows EF 55-60%, impaired relaxation, no valve abn. Nuclear stress test 03/21 shows small area of mild basal inferior wall ischemia, no TID. Low risk study. Documented by User: Aye Phoenix 10/01/20 07:59 [facility] Past Medical History Medical History (Updated 10/01/20 @ 07:59 by Aye Phoenix) Anxiety and depression Back pain BPH (benign prostatic hyperplasia) CAD (coronary artery disease) Chest pain COPD (chronic obstructive pulmonary disease) Cough Diabetes mellitus GERD (gastroesophageal reflux disease) H/O benign carcinoid tumor HLD (hyperlipidemia) HTN (hypertension) Hyperthyroidism Inguinal hernia Left adrenal mass Lung nodule Obesity Smoker Tubular adenoma Family History Family History Father Cancer Mother Lung cancer Brother Heart attack Surgical History Surgical History History of cardiac cath Hx of colonoscopy Hx of esophagogastroduodenoscopy Social History Social History Alcohol intake: unknown Patient Tobacco Use Status: Current everyday Tobacco user Cigarette Packs Per Day: 1 Use of substances other than those prescribed or required for medical reasons: Yes Substance Use Type: Marijuana Have you been hit, kicked, punched, or otherwise hurt by someone within the past year? If so, by whom?: No Are you DNR?: No Advance Directives: Yes Advance Directives on File: Yes Advance Directives Date on File: 02/09/20 Meds Allergies Allergy/AdvReac Type Severity Reaction Status Date / Time Penicillins [PENICILLINS] Allergy Severe THROAT Verified 09/20/20 09:29 SWELLING penicillin V Allergy Unknown anaphylaxis Verified 09/20/20 09:29 Home Medications Medication Instructions Recorded Confirmed Last Taken Type aspirin 81 mg tablet,delayed 81 mg PO BEDTIME 03/15/20 06/05/20 Unknown History release atorvastatin 40 mg tablet 40 mg PO BEDTIME 03/15/20 06/05/20 Unknown History cyclobenzaprine 10 mg tablet 10 mg PO TID 03/15/20 06/05/20 Unknown History dexamethasone 1 mg tablet 1 mg PO BEDTIME 03/15/20 06/05/20 Unknown History doxycycline monohydrate 100 mg 100 mg PO DAILY 03/15/20 06/05/20 Unknown History capsule fenofibrate nanocrystallized 48 mg 48 mg PO QAM 03/15/20 06/05/20 Unknown History tablet fluoxetine 40 mg capsule 40 mg PO DAILY 03/15/20 06/05/20 Unknown History glipizide 10 mg tablet, extended 10 mg PO DAILY 03/15/20 06/05/20 Unknown History release 24 hr hydroxyzine HCl 50 mg tablet 50 mg PO BEDTIME 03/15/20 06/05/20 Unknown History ibuprofen 800 mg tablet 800 mg PO TID PRN 03/15/20 06/05/20 Unknown History isosorbide mononitrate 60 mg 60 mg PO QAM 03/15/20 06/05/20 Unknown History tablet,extended release 24 hr lisinopril 10 1 tab PO QAM 03/15/20 06/05/20 Unknown History mg-hydrochlorothiazide 12.5 mg tablet metformin 1,000 mg tablet 1,000 mg PO DAILY 03/15/20 06/05/20 Unknown History methimazole 5 mg tablet 5 mg PO QAM 03/15/20 06/05/20 Unknown History tamsulosin 0.4 mg capsule 0.4 mg PO BEDTIME 03/15/20 06/05/20 Unknown History gabapentin 600 mg tablet 600 mg PO TID 06/05/20 06/05/20 Unknown History Exam Height,Weight and Vital Signs: Vital Signs Temp Pulse Resp BP Pulse Ox 10/01/20 06:17 97.4 F 56 18 122/63 94 Pertinent Lab Results Pertinent Lab Results: Lab Results 10/01/20 Range/Units 06:22 POC Glucose 104 (60-115) mg/dL 10/01/20: 12 lead EKG-SB. ?Inf infarct. Changes present since before 2011.No change compared with previous EKGs Airway Mallampati Class: I TM Dist: >3cm Neck ROM: Full Denture: Upper and Lower Heart: ,RRR Lungs: Occ wheeze Assessment and Plan Assessment Anesthesia Assessment: Anesthesia Plan Discussed and Chart Reviewed Final Anesthetic Review NPO: Yes ASA Class: III Final Preanesthetic Review: No Changes in Pt Med Stat, Meds/Allgs Chart Reviewed, Consent Obtained/Reviewed and Anes Risks/Benef Reviewed Patient Risk: Intermediate Procedure Risk: Low Assessment/Block/Sedation in SS: Assess/Block/Sedation-SS Anesthetic Plan Anesthetic Plan: GA Disposition: Standard PACU
[2020-10-01] VITALS (8 sets, daily range): BP systolic 122–153; BP diastolic 54–82; PULSE 56–74; RESP 12–19; TEMP 36.1–36.3; O2SAT 91–95; BMI 36.8
--- NOTE | 2020-10-01 | ECG_ITS ---
Test Reason : CAD, COPD, DM, Hernia repair Blood Pressure : / mmHG Vent. 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
[2020-10-01 06:29] LABS: Glucose, Whole Blood 104 mg/dL (60-115)
[2020-10-01] MEDS: Lactated Ringers 1,000 ML 100 ML IVCONT (06:42)
[2020-10-01] MEDS: vancomycin HCL 1,000 MG in 0.9 % Sodium Chloride 250 ML 270 MG IV (07:10)
--- NOTE | 2020-10-01 07:21 | MHC.SHP ---
Pre-Procedural Eval Section A The patient is an INPATIENT: No Changes since office visit: Yes Patient answered all questions; No Cold of Flu in the past 2 weeks, No New Medical Problems and No Changes in Medication The History & Physical has been completed within 30 days and I have reviewed it.: Yes Section B Chief Complaint: Inguinal hernia Details of Present Illness: Initially scheduled for right inguinal hernia repair but now with symptoms in bilateral groins, found to have bilateral inguinal hernias. He is requesting repair of the bilateral inguinal hernias Allergies: Allergies Allergy/AdvReac Type Severity Reaction Status Date / Time Penicillins [PENICILLINS] Allergy Severe THROAT Verified 09/20/20 09:29 SWELLING penicillin V Allergy Unknown anaphylaxis Verified 09/20/20 09:29 Exam Surgical H&P Exam: Significant Findings: Abdomen (Bilateral inguinal hernia) Plan Diagnosis/Plan: Change (Pt requests repair of bilateral inguinal hernias and consents to the procedure. ) I have reviewed the history and physical and performed a pertinent physical examination on my patient. No changes have occurred unless specified.
--- NOTE | 2020-10-01 09:24 | P.OP_ITS ---
Operative Note Operative Note Date of Service: 10/01/20 Narrative: Preoperative diagnosis:Bilateral Inguinal Hernia Postoperative diagnosis:same Procedure:Repair of Bilateral Inguinal hernia with mesh Surgeon: Michael Gardner MD [employer] Laboratory Technician: no physician Anesthesia:General LMA Indications for procedure:65 year old male patient with bilateral inguinal hernias presenting to repair of bilateral inguinal hernia repair Operative findings: Small left inguinal hernia large right inguinal hernia, bilateral indirect Specimen: None Estimated blood loss: 10 mL Complications: None Procedure details: Patient was brought to the OR placed in a supine position. After administering general anesthesia the patient's abdomen was prepped with ChloraPrep and draped in a sterile fashion. A surgical time-out was called the consent confirmed. Patient received preoperative antibiotics and Venodyne boots were in place. Local anesthesia consisting of 0.25% Sensorcaine with epinephrine was then infiltrated over the left inguinal ligament. Incision was then made in the left inguinal region over the inguinal ligament. This carried out through subcutaneous tissue past Joelle's fashion up to the external oblique aponeurosis. Additional local was infiltrated below the external oblique aponeurosis. This was then incised with a scalpel wide with the Metzenbaum scissors. Spermatic cord was then dissected free from the inguinal canal and retracted using a Suzanne drain. A generous spermatic cord was identified. No defect was noted in the direct space. Fibers of the cremasteric muscle were then and a lipoma with dissected free from the surrounding subcutaneous tissue. This was reduced back through the internal ring into the preperitoneal space. The preperitoneal space was widened using open Ray-Kayleen at the internal ring. A medium PHS mesh was then obtained. The circular underlay was deployed into the preperitoneal space in the overlay secured to the pubic tubercle, conjoined tendon, and shelving edge of the inguinal ligament using a 0 Polysorb suture. A slit was made in the mesh in the mesh wrapped around the spermatic cord at the internal ring. This was then secured to the shelving edge the ligament using 0 Polysorb suture. Wounds were then irrigated and suctioned dry. The internal ring was fashion to the size to allow the tip of an index finger to pass. External oblique aponeurosis was then closed using a running 2 0 Polysorb suture. Joelle's fascia and dermis were then reapproximated using interrupted 3-0 Polysorb sutures. Skin was closed using a running subcuticular 4 0 Polysorb suture. Attention was then directed to the right inguinal ligament. Again Sensorcaine 0.25% Sensorcaine was infiltrated over the inguinal ligament. Incision was then made with scalpel carried out through subcutaneous tissue, past Joelle's fashion , and up to the external oblique aponeurosis. Additional local was infiltrated below the aponeurosis. This was then incised with the scalpel wide with the Metzenbaum scissors. Spermatic cord was then dissected free from the surrounding inguinal canal. This was retracted using Alvaton drain. Once again at the floor of the inguinal canal was intact with a slight weakness laterally. The spermatic cord was opened between the fibers of the cremasteric muscle. A large lipoma was dissected free from the inguinal canal. This was then dissected down to the internal ring and reduced into the preperitoneal space. Attention was then directed to the weakness in the floor of the inguinal canal. Fibers of the internal oblique and transversalis aponeurosis were then incised with the electrocautery and a preperitoneal space created using an open Ray-Kayleen sponge. A large extended PHS mesh was then obtained. The circular underlay was then deployed into the preperitoneal space. The overlay was then secured to the pubic tubercle, conjoined tendon, and shelving edge of the inguinal ligament using a 0 Polysorb suture. A slit was made in the mesh mesh wrapped around the spermatic cord at the internal ring. This was then secured to the shelving edge of the inguinal ligament. Again this is with the 0 Polysorb suture. Wounds were then irrigated and suctioned dry. External oblique aponeurosis was then closed using a running 2 0 Polysorb suture. Joelle's fascia and dermis reapproximated using interrupted 3-0 Polysorb sutures. Skin was closed using a running subcuticular 4-0 Polysorb suture. Additional local was then infiltrated in the subcutaneous tissue bilaterally this time. Sterile dressings consisting of 4 x 4 gauze and Tegaderm were then applied. The patient tolerated the procedure well. Sponge, instrument, needle counts reported as correct. The patient was transferred to PACU in stable condition.
== END 2020-10-01 10:50 | disposition home or self-care (01) ==
PROVIDERS: PCP Internal Medicine; Visit Provider Surgery
PROC: (CPT 49505; principal; 2020-10-01 07:30)
DX: K40.20 Bilateral inguinal hernia, without obstruction or gangrene, not specified as recurrent (principal); D17.5 Benign lipomatous neoplasm of intra-abdominal organs; I25.10 Atherosclerotic heart disease of native coronary artery without angina pectoris; I10 Essential (primary) hypertension; K21.9 Gastro-esophageal reflux disease without esophagitis; J44.9 Chronic obstructive pulmonary disease, unspecified; R91.8 Other nonspecific abnormal finding of lung field; E11.9 Type 2 diabetes mellitus without complications; Z79.84 Long term (current) use of oral hypoglycemic drugs; Z79.82 Long term (current) use of aspirin; Z79.899 Other long term (current) drug therapy; Z88.0 Allergy status to penicillin; F17.210 Nicotine dependence, cigarettes, uncomplicated
CPT/HCPCS: 49505; 82947; 93005; C1781; J1100; J2250; J2370; J2405; J2765; J3010; J3370

== ENCOUNTER → 2020-10-09 13:55 | Outpatient (BNVA) | payer MEDICARE, OTHER, SELFPAY | PROVIDERS: PCP Internal Medicine; Referring Provider Internal Medicine; Visit Provider Surgery | DX: Z48.815 Encounter for surgical aftercare following surgery on the digestive system (principal); Z87.19 Personal history of other diseases of the digestive system | CPT/HCPCS: 99212 ==

== ENCOUNTER → 2020-10-15 08:00 | Outpatient (BNVA) | payer MEDICARE, OTHER, SELFPAY | PROVIDERS: PCP Internal Medicine; Referring Provider Internal Medicine; Visit Provider Nurse Practitioner Family | DX: K21.9 Gastro-esophageal reflux disease without esophagitis (principal); R19.7 Diarrhea, unspecified; K59.00 Constipation, unspecified; Z79.899 Other long term (current) drug therapy | CPT/HCPCS: 99212 ==

== ENCOUNTER → 2020-11-20 14:19 | Outpatient (BNVA) | payer MEDICARE, OTHER, SELFPAY | PROVIDERS: PCP Internal Medicine; Referring Provider Internal Medicine; Visit Provider Surgery | DX: Z09 Encounter for follow-up examination after completed treatment for conditions other than malignant neoplasm (principal); Z87.19 Personal history of other diseases of the digestive system | CPT/HCPCS: 99212 ==

== ENCOUNTER → 2020-11-21 10:25 | Outpatient (BNVA) | payer MEDICARE, OTHER, SELFPAY | PROVIDERS: PCP Internal Medicine; Visit Provider Internal Medicine Pulmonary Disease | DX: J44.9 Chronic obstructive pulmonary disease, unspecified (principal); R91.1 Solitary pulmonary nodule | CPT/HCPCS: 99202 ==

== ENCOUNTER 2020-11-27 09:08 | Outpatient (REF) | payer MEDICARE, OTHER, SELFPAY ==
--- NOTE | 2020-11-27 16:19 | PFT_ITS ---
FLOWS: FEV1 62% of predicted at 1.89 L. FVC 63% of predicted at 2.56 L. FEV1 to FVC ratio of 0.74. No bronchodilator response. LUNG VOLUMES: Total lung capacity 77% of predicted at 5.00 L. Residual volume 110% of predicted at 2.45 L. Slow vital capacity 60% of predicted at 2.54 L. Expiratory reserve volume 23% of predicted at 0.26 L. Diffusion capacity is moderately decreased, diffusion capacity adjust to normal after correction for alveolar ventilation. In comparison to pulmonary function test from September of 2019, FEV1 has increased by 0.21 L; FVC has increased by 0.39 L; total lung capacity has increased by 0.57 L; residual volume has increased by 0.25 L; slow vital capacity and expiratory reserve volume have been without significant changes; diffusion capacity has increased by 0.29 mL/minute per mmHg. IMPRESSION: Combined moderate obstructive and moderate restrictive ventilatory defect with no bronchodilator response. Decreased expiratory reserve volume suggests extrathoracic restriction likely secondary to abdominal obesity. MD SUE Jackson/MODL / [id number]
== END 2020-11-27 09:09 | disposition home or self-care (01) ==
LOC: HO.RESP 09:08
PROVIDERS: PCP Internal Medicine; Visit Provider Internal Medicine Pulmonary Disease
DX: J44.9 Chronic obstructive pulmonary disease, unspecified (principal)
CPT/HCPCS: 94060; 94727; 94729

== ENCOUNTER 2020-12-04 13:41 | Outpatient (REF) | payer MEDICARE, OTHER, SELFPAY ==
--- NOTE | ~2020-12-04 | PE_ITS ---
EXAMINATION: Fluorine-18 FDG PET/CT Scan CLINICAL INDICATION: Initial treatment management. Solitary pulmonary nodule. PROCEDURE: 64 minutes following the intravenous administration of 25 mCi of fluorine 18 FDG, images from the base of the skull to the mid thighs were obtained using a combined PET/CT scanner with CT scan based attenuation correction. No oral contrast was administered. No intravenous contrast was administered. Transverse, coronal, sagittal, and volume reconstruction projections were obtained. The patient's blood glucose as determined by a finger stick, was not measured immediately prior to injection. Total CT exam dose-length product 1147.32 mGy-cm * These CT images were obtained using dose optimization techniques as appropriate, variously including the following: Automated exposure control * Adjustment of mA and/or kV according to patient size (this includes techniques or standardized protocols for targeted exams where dose is matched to indication/reason for exam; i.e. extremities or head) * Use of iterative reconstruction technique COMPARISON: The previous PET CT scan dated 03/01/2014 is available for comparison. The diagnostic CT scan of the abdomen and pelvis, dated 09/07/2020, is available for comparison. CTA the chest dated 05/05/2020 is also available for comparison. FINDINGS: (Slice numbers described in this report are numbered superiorly to inferiorly with slice #1 in the head) NECK AND VISUALIZED HEAD: There is mildly increased FDG activity associated with several subcentimeter cervical lymph nodes. The most prominent of these there is a left cervical level IIa lymph node which shows SUVmax 4.2, slice 33/267. Additional subcentimeter FDG avid lymph nodes are left cervical level 2A node showing SUVmax 2.7, slice 28/267 and a right cervical level 2 a subcentimeter lymph node showing SUVmax 3.0, slice 31/267. These lymph nodes were not FDG avid on the prior 03/01/2014 PET/CT scan, but all these lymph nodes appear to have been present and do not appear significantly changed on the corresponding CT images. No additional foci of abnormal FDG activity are present in the neck or visualized head. All the other FDG activity in this region appears physiological. THORAX: The previously visualized posterior subpleural pulmonary nodule is again visualized on these nondiagnostic CT images, measuring 0.8 x 0.5 cm in largest transverse dimensions, slightly smaller than on the most recent CT of the abdomen and pelvis dated 09/08/2019 but not likely significantly changed due to the difference in CT technique. This is too small to be characterized on the FDG PET images and no abnormal FDG activity is present in this region. No additional pulmonary nodules are visualized. There is some adjacent scarring or atelectasis extending superiorly from this nodule and this also shows no abnormal FDG activity. There is no pleural or pericardial fluid, or pneumothorax. There is no mediastinal, supraclavicular, or axillary lymphadenopathy. ABDOMEN AND PELVIS: There is diffuse FDG activity of varying intensities present throughout the gastrointestinal tract without a suspicious focal component and probably physiological. There are no suspicious foci of abnormal FDG activity present in the gastrointestinal tract. There is diverticulosis without evidence of diverticulitis. The hollow viscera are otherwise unremarkable. The liver and spleen are unremarkable. The gallbladder has been resected and metallic clips in the gallbladder bed are noted. The kidneys and right adrenal glands are unremarkable. The left adrenal gland has been resected and several metallic clips are present in this region. There is no associated abnormal FDG activity. The pancreas is unremarkable. There is no retroperitoneal, mesenteric, pelvic or inguinal lymphadenopathy. Stable appearing postsurgical changes in the lower anterior abdominal wall from a prior hernia repair are noted. There is Increased FDG activity in foci bilaterally in these regions, most prominently on the left showing SUVmax 6.7, slice 227/267. The pelvic organs are unremarkable. MUSCULOSKELETAL: No foci of abnormal FDG activity are present in the osseous structures. There are degenerative changes in the spine but no suspicious sclerotic or lytic lesions are visualized. A C6-C7 anterior cervical fusion is noted with no associated abnormal FDG activity. VASCULAR: Scattered vascular calcifications including some coronary calcifications are noted. PET/PET CT fusion skull to thigh IMPRESSION: 1. A subcentimeter posterior subpleural right lower lobe pulmonary nodule is visualized, unchanged from the most recent CT scans. This is too small to be characterized on the FDG PET images. If biopsy of this is not obtained, follow-up of this with diagnostic CT imaging in approximately 6 months is recommended. 2. Mildly FDG avid bilateral subcentimeter cervical lymph nodes are nonspecific, but because these have not changed in appearance on the CT images over approximately 7 years, it is unlikely these are malignant in etiology and more likely the FDG activity which was not present on the 03/01/2014 PET/CT scan is inflammatory in etiology. 3. No additional abnormalities suspicious for metastatic or other malignant lesions are noted. 4. FDG activity associated with postsurgical changes in the anterior lower abdominal wall in the region of a hernia repair are noted bilaterally. These likely represent post surgical inflammatory changes, but may also be evidence of some active infection at these sites. Clinical correlation is recommended. 5. Resection of the left adrenal gland and gallbladder are noted. 6. Vascular calcifications including some coronary calcifications are noted.
== END 2020-12-04 13:42 | disposition home or self-care (01) ==
LOC: HO.PET 13:41
PROVIDERS: PCP Internal Medicine; Visit Provider Internal Medicine Pulmonary Disease
DX: Z13.89 Encounter for screening for other disorder (principal)

== ENCOUNTER → 2020-12-13 10:05 | Outpatient (BNVA) | payer MEDICARE, OTHER, SELFPAY | PROVIDERS: PCP Internal Medicine; Referring Provider Internal Medicine; Visit Provider Internal Medicine Cardiovascular Disease | DX: I20.9 Angina pectoris, unspecified (principal) | CPT/HCPCS: 99212 ==

== ENCOUNTER → 2021-01-01 15:59 | Outpatient (BNVA) | payer MEDICARE, OTHER, SELFPAY | PROVIDERS: Visit Provider Nurse Practitioner Family | DX: K21.9 Gastro-esophageal reflux disease without esophagitis (principal); K58.2 Mixed irritable bowel syndrome | CPT/HCPCS: 99212 ==

== ENCOUNTER → 2021-01-17 14:37 | Outpatient (BNVA) | payer MEDICARE, OTHER, SELFPAY | PROVIDERS: PCP Internal Medicine; Visit Provider Internal Medicine Pulmonary Disease | DX: J44.9 Chronic obstructive pulmonary disease, unspecified (principal); R91.1 Solitary pulmonary nodule | CPT/HCPCS: 99212 ==

== ENCOUNTER 2021-02-12 10:20 | Outpatient (REF) | payer MEDICARE, OTHER, SELFPAY ==
[2021-02-12 12:02] LABS: Hemoglobin 14.8 g/dl (14.0-18.0); Mean Corpuscular HGB Conc 33.6 g/dl (31.0-36.0); Mean Corpuscular Hemoglobin 30.3 pg (27.0-33.0); Mean Platelet Volume 9.3 fL (9.4-12.4); Platelet Count 172 X10*3/uL (160-400); Red Blood Count 4.89 X10*6/uL (4.60-5.80); Red Cell Distribution Width 13.4 % (11.0-16.0); White Blood Count 7.6 X10*3/uL (4.8-10.8)
[2021-02-12 12:34] LABS: Alanine Aminotransferase 16 U/L (0-40); Albumin Level 4.2 g/dL (3.5-5.0); Alkaline Phosphatase 71 U/L (39-117); Anion Gap 15 (12-20); Aspartate Amino Transferase 15 U/L (5-37); Bilirubin Total 0.5 mg/dL (0.0-1.0); Blood Urea Nitrogen 17 mg/dL (9-16); Calcium 9.7 mg/dL (8.4-10.2); Carbon Dioxide 26 mmol/L (22-29); Chloride 102 mmol/L (96-108); Estimated Glomerular Filt Rate > 60; Glucose Random 138 mg/dL (60-115); Potassium 4.5 mmol/L (3.3-5.1); Sodium 138 mmol/L (135-145)
== END 2021-02-12 10:21 | disposition home or self-care (01) ==
LOC: HO.LAB 10:20
PROVIDERS: PCP Internal Medicine; Referring Provider Internal Medicine; Visit Provider Nurse Practitioner Family
DX: R10.11 Right upper quadrant pain (principal); K76.0 Fatty (change of) liver, not elsewhere classified; K21.9 Gastro-esophageal reflux disease without esophagitis; K58.2 Mixed irritable bowel syndrome
CPT/HCPCS: 36415; 80053; 85027; 99212

== ENCOUNTER 2021-06-11 10:02 | Outpatient (REF) | payer OTHER, SELFPAY ==
--- NOTE | ~2021-06-11 | CT_ITS ---
EXAMINATION: CT CHEST WITHOUT CONTRAST CLINICAL INFORMATION: Solitary pulmonary nodule COMPARISON: Previous chest CT most recent August 2019 TECHNIQUE: Multidetector volumetric CT imaging of the chest was done. Axial MIP volume rendering provided. Sagittal and coronal reformatted images were obtained. This CT examination was performed using dose optimization techniques as appropriate, variously including the following: *Automated exposure control *Adjustment of mA and/or kV according to patient size (this includes techniques or standardized protocols for targeted exams where dose is matched to indication/reason for exam; i.e. extremities or head) *Use of iterative reconstruction technique DLP: 231 mGy-cm FINDINGS: LUNGS: There is evidence of mild emphysema. There is a 2 mm peripheral or subpleural calcified right upper lobe nodule axial image 87 series 7 that is stable. There is a 4 x 8 mm right upper lobe nodule axial image 109 series 7 that is new. There is a 4 mm right upper lobe nodule axial image 200 series 7 that is stable. There is a 4 mm right lower lobe nodule axial image 368 series 7 that is stable. There is a 5 x 10 mm slightly spiculated peripheral or subpleural right lower lobe nodule axial image 408 series 7 that appears slightly increased in size from prior exam by my measurement measuring 4 x 7 mm. There is a 3 mm left upper lobe nodule axial image 194 series 7 that is stable. MEDIASTINUM: The heart does not appear enlarged. There is coronary artery calcification. There are small mediastinal lymph nodes. There are no enlarged lymph nodes. The thoracic aorta is normal in caliber. The esophagus is air-filled or distended. PLEURA: There is no pleural effusion. No pleural mass or thickening. AXILLA: No lymphadenopathy. UPPER ABDOMEN: The gallbladder and left adrenal gland have been removed. OSSEOUS STRUCTURES: There are degenerative changes of the spine. There are postsurgical changes to the lower cervical spine. CT/CT chest wo con IMPRESSION: Mild emphysema. New 4 x 8 mm right upper lobe nodule. Interval increase in size in the peripheral or subpleural right lower lobe nodule now measuring 5 x 10 mm. Smaller pulmonary nodules are stable. Fleischner guidelines were followed.
== END 2021-06-11 10:03 | disposition home or self-care (01) ==
LOC: HO.CT 10:02
PROVIDERS: PCP Internal Medicine; Visit Provider Internal Medicine Pulmonary Disease
DX: R91.1 Solitary pulmonary nodule (principal)
CPT/HCPCS: 71250

== ENCOUNTER → 2021-06-19 13:55 | Outpatient (BNVA) | payer OTHER, SELFPAY | PROVIDERS: PCP Internal Medicine; Visit Provider Internal Medicine Pulmonary Disease | DX: R91.1 Solitary pulmonary nodule (principal) | CPT/HCPCS: 99212 ==

== ENCOUNTER → 2021-06-28 10:00 | Outpatient (BNVA) | payer MEDICARE, SELFPAY | PROVIDERS: PCP Internal Medicine; Visit Provider Surgery | DX: R91.8 Other nonspecific abnormal finding of lung field (principal); Z79.899 Other long term (current) drug therapy; Z87.891 Personal history of nicotine dependence | CPT/HCPCS: 99212 ==

== ENCOUNTER 2021-07-03 08:49 | Outpatient (REF) | payer MEDICARE, SELFPAY ==
--- NOTE | 2021-07-03 13:29 | PFT_ITS ---
Forced vital capacity is 49%, FEV1 52%, FEV1/FVC ratio is 77, FEF 25/75, 52%, and MVV 67%. Post bronchodilator therapy, there is a significant improvement in FVC, FEV1, and [id number], resulting in partial reversibility. Total lung capacity is 80%. Residual volume 117% indicating a mild degree of air trapping. Diffusion capacity 57% CONCLUSION: The patient has moderately severe obstructive airway disorder. Excellent improvement after bronchodilator therapy is noted. These findings are consistent with bronchial asthma/chronic obstructive pulmonary disease. Clinical correlation recommended. Inga Croft MD MSB/MODL / [id number]
== END 2021-07-03 08:50 | disposition home or self-care (01) ==
LOC: HO.RESP 08:49
PROVIDERS: PCP Internal Medicine; Visit Provider Surgery
DX: R91.1 Solitary pulmonary nodule (principal)
CPT/HCPCS: 94060; 94727; 94729

== ENCOUNTER → 2021-07-09 13:53 | Outpatient (BNVA) | payer MEDICARE, SELFPAY | PROVIDERS: PCP Internal Medicine; Referring Provider Internal Medicine; Visit Provider Nurse Practitioner Family | DX: Z01.810 Encounter for preprocedural cardiovascular examination (principal); I25.10 Atherosclerotic heart disease of native coronary artery without angina pectoris; I10 Essential (primary) hypertension; R94.39 Abnormal result of other cardiovascular function study; E78.5 Hyperlipidemia, unspecified; E11.9 Type 2 diabetes mellitus without complications | CPT/HCPCS: 93005; 99212 ==

== ENCOUNTER 2021-08-29 13:05 | Outpatient (REF) | payer MEDICARE, SELFPAY ==
--- NOTE | ~2021-08-29 | CT_ITS ---
EXAMINATION: CT CHEST WITHOUT CONTRAST CLINICAL INFORMATION: Solitary pulmonary nodule. COMPARISON: CT chest 06/11/2021 TECHNIQUE: Multidetector volumetric CT imaging of the chest was done. Axial MIP volume rendering provided. Sagittal and coronal reformatted images were obtained. This CT examination was performed using dose optimization techniques as appropriate, variously including the following: *Automated exposure control *Adjustment of mA and/or kV according to patient size (this includes techniques or standardized protocols for targeted exams where dose is matched to indication/reason for exam; i.e. 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 LUNGS: The lungs are well-expanded with new plate-like atelectasis right lung apex. There is a 2 mm subpleural nodule right lung apex image 50/5, 5 mm nodule right upper lobe axial image 110/5, previously measured 4 x 8 mm, 2 mm nodule left upper lobe axial image 134/5, stable. Previously seen 4 mm nodule right upper lobe is not visualized, several small foci of nodular thickening in the right minor fissure measuring 2 mm and less, 3 mm nodule left lower lobe axial image 254/5, stable, 1 mm micronodules right lower lobe image 252/5, subpleural previously seen spiculated lesion measuring 1 cm in the right lower lobe subpleural location has undergone wedge resection. There are surgical sutures in this region with thick scarring or postsurgical changes in the right lower lobe posterior segment. MEDIASTINUM: The thyroid lobes are symmetric and normal. The central trachea and the bronchi widely patent. There are benign lymph nodes in the mediastinum. Heart size and the great vessels are normal caliber. There are mild coronary artery calcifications. There is small right pericardial 8 mm node. It is unchanged. PLEURA: There is a small right pleural effusion new since the last exam. Punctate pleural microcalcifications seen in the right lung base image 44/3, 45/3. AXILLA: No abnormal axillary lymph nodes seen. The chest wall is unremarkable. UPPER ABDOMEN: Visualized liver, spleen, pancreas and right adrenal gland appears unremarkable. The left adrenal gland and the gallbladder has been surgically removed. OSSEOUS STRUCTURES: There is moderate ventral spondylosis throughout mid and lower dorsal spine and upper abdomen. There is lower cervical spine fusion with ventral plate and screws not completely included on the scan. No aggressive lytic or sclerotic process seen. CT/CT chest wo con IMPRESSION: 1. Interval surgical removal of spiculated 1 cm lesion in the right lower lobe with postsurgical changes. There is thick scarring or post surgical changes in the right lower lobe with new small right pleural effusion. 2. There are multiple additional pulmonary nodules which are stable. A 4 mm nodule seen in the right upper lobe is not visualized at this time. 3. Left adrenal gland and the gallbladder have been removed and unchanged since 06/11/2021 CT abdomen exam. Fleischner guidelines were followed.
== END 2021-08-29 13:06 | disposition home or self-care (01) ==
LOC: HO.CT 13:05
PROVIDERS: PCP Internal Medicine; Visit Provider Surgery
DX: R91.1 Solitary pulmonary nodule (principal)
CPT/HCPCS: 71250

== ENCOUNTER → 2021-09-13 11:01 | Outpatient (BNVA) | payer MEDICARE, SELFPAY | PROVIDERS: PCP Internal Medicine; Visit Provider Surgery | DX: Z13.89 Encounter for screening for other disorder (principal) ==

== ENCOUNTER → 2021-10-23 12:50 | Outpatient (BNVA) | payer MEDICARE, SELFPAY | PROVIDERS: PCP Internal Medicine; Visit Provider Nurse Practitioner Family | DX: R10.32 Left lower quadrant pain (principal); K59.1 Functional diarrhea; K76.0 Fatty (change of) liver, not elsewhere classified; K21.9 Gastro-esophageal reflux disease without esophagitis; K58.1 Irritable bowel syndrome with constipation; Z79.899 Other long term (current) drug therapy | CPT/HCPCS: 99212 ==

== ENCOUNTER 2021-10-25 10:02 | Outpatient (REF) | payer MEDICARE, SELFPAY ==
[2021-10-25 11:14] LABS: Alanine Aminotransferase 15 U/L (0-40); Albumin Level 4.1 g/dL (3.5-5.0); Alkaline Phosphatase 71 U/L (39-117); Anion Gap 13 (12-20); Aspartate Amino Transferase 14 U/L (5-37); Bilirubin Total 0.5 mg/dL (0.0-1.0); Blood Urea Nitrogen 17 mg/dL (9-16); Calcium 9.2 mg/dL (8.4-10.2); Carbon Dioxide 26 mmol/L (22-29); Chloride 103 mmol/L (96-108); Cholesterol 163 mg/dL; Estimated Glomerular Filt Rate > 60; Glucose Random 126 mg/dL (60-115); HDL Cholesterol 36 mg/dL; LDL Cholesterol Calculated 96 mg/dl; Lipase 22 U/L (8-78); Potassium 4.2 mmol/L (3.3-5.1); Sodium 138 mmol/L (135-145); Total Protein 7.1 g/dL (6.5-8.0); Triglycerides 155 mg/dL
[2021-10-29 14:52] LABS: Immunoglobulin A 283 mg/dL (70-320)
[2021-10-30 15:47] LABS: Transglutaminase Ab IgG <1.0 U/mL; Transglutaminase IgA 1.2 U/mL
== END 2021-10-25 10:03 | disposition home or self-care (01) ==
LOC: HO.LAB 10:02
PROVIDERS: Nurse Practitioner Family; PCP Internal Medicine; Visit Provider Nurse Practitioner Family
DX: E78.5 Hyperlipidemia, unspecified (principal); R10.9 Unspecified abdominal pain; Z12.11 Encounter for screening for malignant neoplasm of colon
CPT/HCPCS: 36415; 80053; 80061; 82784; 83690; 86364

== ENCOUNTER 2021-12-25 11:28 | Outpatient (REF) | payer MEDICARE, SELFPAY ==
--- NOTE | ~2021-12-25 | XR_ITS ---
EXAMINATION: XR LUMBOSACRAL SPINE WITH OBLIQUES CLINICAL INFORMATION: Sciatica pain worsening COMPARISON: CT 09/08/2019 oh TECHNIQUE: AP, both oblique, and lateral views of the lumbar spine. Lateral view of the lumbosacral junction. FINDINGS: No acute fracture or subluxation. Vertebral body height and alignment maintained. Disc space narrowing of L4-L5. Prominent endplate osteophytes throughout. The sacroiliac joints are symmetric. The visualized sacrum is intact. Upper abdominal surgical clips. XR/XR lumbar spine 4V min IMPRESSION: Moderate degenerative changes throughout the lumbar spine with prominent osteophytes present throughout.
== END 2021-12-25 11:29 | disposition home or self-care (01) ==
LOC: HO.XRAY 11:28
PROVIDERS: Absent Provider Internal Medicine; PCP Internal Medicine; Visit Provider General Practice
DX: M54.89 Other dorsalgia (principal); J44.9 Chronic obstructive pulmonary disease, unspecified; R91.1 Solitary pulmonary nodule
CPT/HCPCS: 72110; 99212

== ENCOUNTER → 2022-02-26 09:23 | Outpatient (BNVA) | payer MEDICARE, SELFPAY | PROVIDERS: PCP Internal Medicine; Visit Provider Internal Medicine Pulmonary Disease | DX: R91.1 Solitary pulmonary nodule (principal); J44.9 Chronic obstructive pulmonary disease, unspecified | CPT/HCPCS: 99212 ==

== ENCOUNTER 2022-06-11 10:59 | Outpatient (REF) | payer MEDICARE, OTHER, SELFPAY ==
[2022-06-11 13:14] LABS: Estimated Average Glucose 126 mg/dL
[2022-06-11 13:42] LABS: Alanine Aminotransferase 20 U/L (0-40); Albumin Level 4.1 g/dL (3.5-5.0); Alkaline Phosphatase 80 U/L (39-117); Aspartate Amino Transferase 16 U/L (5-37); Bilirubin Direct 0.2 mg/dL (0.0-0.5); Bilirubin Total 0.7 mg/dL (0.0-1.0); Lipase 14 U/L (8-78); Total Protein 6.9 g/dL (6.5-8.0)
[2022-06-11 14:04] LABS: Folate 10.5 ng/mL (> or = 4.0); Vitamin B12 370 pg/mL (200-900)
[2022-06-17 15:07] LABS: Vitamin D 25-OH, D2 <4 ng/mL; Vitamin D 25-OH, D3 15 ng/mL; Vitamin D 25-OH, Total 15 ng/mL (30-100)
== END 2022-06-11 11:00 | disposition home or self-care (01) ==
LOC: HO.LAB 10:59
PROVIDERS: PCP Internal Medicine; Visit Provider Nurse Practitioner Family
DX: R10.9 Unspecified abdominal pain (principal); K58.0 Irritable bowel syndrome with diarrhea; K21.9 Gastro-esophageal reflux disease without esophagitis; R19.7 Diarrhea, unspecified; E55.9 Vitamin D deficiency, unspecified; E11.9 Type 2 diabetes mellitus without complications
CPT/HCPCS: 36415; 80076; 82306; 82607; 82746; 83036; 83690; 99212

== ENCOUNTER → 2022-07-10 10:56 | Outpatient (BNVA) | payer MEDICARE, SELFPAY | PROVIDERS: PCP Internal Medicine; Referring Provider Internal Medicine; Visit Provider Internal Medicine Cardiovascular Disease | DX: Z01.810 Encounter for preprocedural cardiovascular examination (principal); I20.9 Angina pectoris, unspecified; F17.210 Nicotine dependence, cigarettes, uncomplicated; Z71.6 Tobacco abuse counseling | CPT/HCPCS: 93005; 99212 ==

== ENCOUNTER → 2022-08-06 10:23 | Outpatient (BNVA) | payer MEDICARE, OTHER, SELFPAY | PROVIDERS: PCP Internal Medicine; Referring Provider Internal Medicine; Visit Provider Nurse Practitioner Family | DX: K58.0 Irritable bowel syndrome with diarrhea (principal); K21.9 Gastro-esophageal reflux disease without esophagitis; K59.1 Functional diarrhea | CPT/HCPCS: 99212 ==

== ENCOUNTER 2022-08-25 07:01 | Outpatient (REF) | payer MEDICARE, OTHER, SELFPAY ==
--- NOTE | ~2022-08-25 | CT_ITS ---
EXAMINATION: CT CHEST WITHOUT CONTRAST CLINICAL INFORMATION: Pulmonary nodule COMPARISON: Previous chest CT most recent August 2021 TECHNIQUE: Multidetector volumetric CT imaging of the chest was done. Axial MIP volume rendering provided. Sagittal and coronal reformatted images were obtained. This CT examination was performed using dose optimization techniques as appropriate, variously including the following: *Automated exposure control *Adjustment of mA and/or kV according to patient size (this includes techniques or standardized protocols for targeted exams where dose is matched to indication/reason for exam; i.e. 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 3 mm solid right upper lobe nodule axial image 128 series 5 that is stable. Patchy groundglass attenuation nodules in the right upper lobe that are new. The largest measures 1 cm axial image 2:30 series 5. Stable 2 mm calcified right middle lobe nodule adjacent to the minor fissure axial image 239 series 5. Stable postsurgical changes to the posterior basal right lower lobe. There is developing whirled bronchovascular pattern leading to this area suggestive of developing round atelectasis. New semisolid or heterogeneous either 2 adjacent left lower lobe central nodule versus bilobed nodule axial image 429 series 5 measuring maximum 2 x 6 mm measured as 1 nodule. Increased peribronchial attenuation for example axial image 382 series 5 in the left lower lobe. New groundglass attenuation patchy area in the left lower lobe measuring 7 mm axial image 348 series 5. Left lower lobe findings may be related to airways disease. 2 mm solid left lower lobe nodule axial image 287 series 5 that is stable. MEDIASTINUM: Shoddy stable mediastinal lymphadenopathy. Atherosclerotic disease of the aorta. Normal heart size. No pericardial effusion. CORONARY ARTERY CALCIFICATION: No pleural effusion or pleural thickening. Right pleural effusion August 2021 no longer seen. PLEURA: Very small right pleural effusion decreased in size from AXILLA: No lymphadenopathy. UPPER ABDOMEN: The left adrenal gland and gallbladder been removed. The right adrenal gland is normal. OSSEOUS STRUCTURES: Degenerative images of the spine. Postsurgical changes to the lower cervical spine. CT/CT chest wo IV con IMPRESSION: Stable postsurgical changes to the right upper and right lower lobes. New patchy areas of groundglass attenuation in the right upper lobe and left lower lobe. This may be related to airways disease or infectious/inflammatory process. Probable developing round atelectasis in the right lower lobe. Fleischner guidelines were followed.
== END 2022-08-25 07:02 | disposition home or self-care (01) ==
LOC: HO.CT 07:01
PROVIDERS: PCP Internal Medicine; Visit Provider Internal Medicine Pulmonary Disease
DX: R91.1 Solitary pulmonary nodule (principal)
CPT/HCPCS: 71250

== ENCOUNTER → 2022-08-29 09:27 | Outpatient (BNVA) | payer MEDICARE, SELFPAY | PROVIDERS: PCP Internal Medicine; Visit Provider Internal Medicine Pulmonary Disease | DX: J44.9 Chronic obstructive pulmonary disease, unspecified (principal); R91.1 Solitary pulmonary nodule; R05.9 Cough, unspecified | CPT/HCPCS: 99212 ==

== ENCOUNTER → 2022-10-07 14:48 | Outpatient (BNVA) | payer MEDICARE, SELFPAY | PROVIDERS: Visit Provider Nurse Practitioner Family | DX: K58.0 Irritable bowel syndrome with diarrhea (principal); K21.9 Gastro-esophageal reflux disease without esophagitis; R14.0 Abdominal distension (gaseous) | CPT/HCPCS: 99212 ==

== ENCOUNTER 2023-01-28 09:39 | Outpatient (REF) | payer MEDICARE, SELFPAY ==
[2023-01-28 14:15] LABS: MANUAL DIFF FLAG NO
[2023-01-28 14:18] LABS: Basophils Absolute Auto 0.1 X10*3/uL (0.0-0.2); Basophils Percent Auto 0.6 % (0-2); Eosinophils Absolute Auto 0.1 X10*3/uL (0.0-0.4); Eosinophils Percent Auto 1.3 % (0-4); Hematocrit 44.4 % (42.0-52.0); Hemoglobin 14.9 g/dl (14.0-18.0); Imm Gran Abs Auto 0.03 X10*3/uL (0.00-0.03); Imm Gran Pct Auto 0.4 % (0.0-0.4); Lymphocytes Absolute Auto 1.9 X10*3/uL (1.2-4.9); Lymphocytes Percent Auto 24.9 % (20-40); Mean Corpuscular HGB Conc 33.6 g/dl (31.0-36.0); Mean Corpuscular Hemoglobin 30.8 pg (27.0-33.0); Mean Corpuscular Volume 91.7 fL (80.0-98.0); Mean Platelet Volume 9.7 fL (9.4-12.4); Monocytes Absolute Auto 0.5 X10*3/uL (0.1-1.2); Monocytes Percent Auto 6.2 % (2-11); Neutrophils Absolute Auto 5.1 x10*3/uL (2.0-8.3); Neutrophils Percent Auto 66.6 % (45-73); Platelet Count 159 X10*3/uL (160-400); Red Blood Count 4.84 X10*6/uL (4.60-5.80); Red Cell Distribution Width 13.4 % (11.0-16.0); White Blood Count 7.7 X10*3/uL (4.8-10.8)
[2023-01-28 14:34] LABS: Alanine Aminotransferase 10 U/L (0-40); Albumin Level 4.2 g/dL (3.5-5.0); Alkaline Phosphatase 67 U/L (39-117); Anion Gap 17 (12-20); Aspartate Amino Transferase 15 U/L (5-37); Bilirubin Direct 0.2 mg/dL (0.0-0.5); Bilirubin Total 0.7 mg/dL (0.0-1.0); Blood Urea Nitrogen 13 mg/dL (9-16); Calcium 9.7 mg/dL (8.4-10.2); Carbon Dioxide 24 mmol/L (22-29); Chloride 101 mmol/L (96-108); Estimated Glomerular Filt Rate > 60; Glucose Fasting 94 mg/dL (60-99); Lipase 24 U/L (8-78); Potassium 3.7 mmol/L (3.3-5.1); Sodium 138 mmol/L (135-145); Total Protein 7.5 g/dL (6.5-8.0)
== END 2023-01-28 09:40 | disposition home or self-care (01) ==
LOC: HO.XRAY 09:39
PROVIDERS: PCP Pediatrics; Visit Provider Pediatrics
DX: R10.9 Unspecified abdominal pain (principal); J44.9 Chronic obstructive pulmonary disease, unspecified
CPT/HCPCS: 36415; 71046; 80048; 80076; 83690; 85025

== ENCOUNTER 2023-02-06 09:24 | Day surgery (SDC) | payer MEDICARE, OTHER, SELFPAY ==
[2023-02-04 13:43] VITALS: BMI 34.0
--- NOTE | 2023-02-05 09:54 | HO.ANESPROP2 ---
Documented by User: Brisa Dawson NP 02/05/23 09:56 HPI - Anesthesia Eval Consult details Narrative: 67yo M for Upper Endoscopy and Colonoscopy Cardiac optimized per 06/2022 office visit (stable for 2 year f/u) [facility] Active Problems Active Problems: All Active Problems (Updated 01/07/22 @ 20:00 by Antonella Gurrola [facility]) IBS (irritable bowel syndrome) (Acute) Preop cardiovascular exam (Acute) Lung nodule (Acute) COPD (chronic obstructive pulmonary disease) (Acute) Personal history of nicotine dependence (Acute) Cough (Acute) CAD (coronary artery disease) (Acute) Angina pectoris with normal coronary arteriogram (Acute) HTN (hypertension) (Acute) HLD (hyperlipidemia) (Acute) Diabetes mellitus type 2, controlled (Acute) Hyperthyroidism (Acute) GERD (gastroesophageal reflux disease) (Acute) Tubular adenoma of colon (Acute ~2019) Diverticulosis (Acute) Bilateral inguinal hernia (Acute) Back pain (Acute) Anxiety and depression (Acute) BPH (benign prostatic hyperplasia) (Acute) Abnormal nuclear stress test (Acute) Chest pain (Acute) Obesity (Acute) Past Medical History Medical History IBS (irritable bowel syndrome) Personal history of nicotine dependence Diabetes mellitus type 2, controlled Tubular adenoma of colon (~2019) GERD (gastroesophageal reflux disease) H/O benign carcinoid tumor Cough Back pain Anxiety and depression Lung nodule BPH (benign prostatic hyperplasia) Hyperthyroidism Left adrenal mass HLD (hyperlipidemia) CAD (coronary artery disease) Chest pain Obesity HTN (hypertension) COPD (chronic obstructive pulmonary disease) Family History Family History Father Cancer Mother Lung cancer Brother Heart attack Family history of problems with anesthesia: No Surgical History Surgical History History of total adrenalectomy History of colonoscopy History of lithotripsy (~2014) History of bilateral inguinal hernia repair (~2014) History of esophagogastroduodenoscopy (EGD) History of prostate surgery (~2017) History of cholecystectomy (~2019) History of cardiac cath (~2010) History of Problems with Anesthesia: No Social History Social History Alcohol intake: never Patient Tobacco Use Status: Current everyday Tobacco user Cigarette Packs Per Day: 1 Cigarettes Per Day: 20.0 Years Smoked: 50 Substance Use Type: Marijuana Advance Directives Date on File: 02/09/20 Meds Allergies Allergy/AdvReac Type Severity Reaction Status Date / Time Penicillins [PENICILLINS] Allergy Severe THROAT Verified 10/07/22 15:00 SWELLING penicillin V Allergy Unknown anaphylaxis Verified 10/07/22 15:00 Home Medications Medication Instructions Recorded Confirmed Last Taken Type aspirin 81 mg tablet,delayed 81 mg PO BEDTIME 03/15/20 07/10/22 Unknown History release atorvastatin 40 mg tablet 40 mg PO BEDTIME 03/15/20 07/10/22 Unknown History fluoxetine 40 mg capsule 40 mg PO DAILY 03/15/20 07/10/22 Unknown History hydroxyzine HCl 50 mg tablet 50 mg PO BEDTIME 03/15/20 07/10/22 Unknown History ibuprofen 800 mg tablet 800 mg PO TID PRN Pain 03/15/20 07/10/22 Unknown History isosorbide mononitrate 60 mg 60 mg PO QAM 03/15/20 07/10/22 Unknown History tablet,extended release 24 hr lisinopril 10 1 tab PO QAM 03/15/20 07/10/22 Unknown History mg-hydrochlorothiazide 12.5 mg tablet methimazole 5 mg tablet 5 mg PO QAM 03/15/20 07/10/22 Unknown History tamsulosin 0.4 mg capsule 0.4 mg PO BEDTIME 03/15/20 07/10/22 Unknown History gabapentin 600 mg tablet 600 mg PO TID 06/05/20 07/10/22 Unknown History metformin 1,000 mg tablet 1,000 mg PO BID 12/13/20 07/10/22 Unknown History nitroglycerin 0.4 mg sublingual 0.4 mg sublingual angina 12/13/20 07/10/22 Unknown History tablet glipizide 5 mg tablet, extended 5 mg PO DAILY 07/10/22 07/10/22 Unknown History release 24 hr Exam Exam Date and Time: February 05, 2023 0954 Height,Weight and Vital Signs: Height 5 ft 7 in Weight 98.43 kg Narrative Narrative: EKG 06/2022 normal sinus rhythm with normal EKG Assessment and Plan Assessment Anesthesia Assessment: Chart Reviewed Final Anesthetic Review Family History of Problems with Anesthesia: No History of Problems with Anesthesia: No Documented by User: Angie García MD 02/06/23 11:43 PMFSH Past Medical History Medical History IBS (irritable bowel syndrome) Personal history of nicotine dependence Diabetes mellitus type 2, controlled Tubular adenoma of colon (~2019) GERD (gastroesophageal reflux disease) H/O benign carcinoid tumor Cough Back pain Anxiety and depression Lung nodule BPH (benign prostatic hyperplasia) Hyperthyroidism Left adrenal mass HLD (hyperlipidemia) CAD (coronary artery disease) Chest pain Obesity HTN (hypertension) COPD (chronic obstructive pulmonary disease) Family History Family History Father Cancer Mother Lung cancer Brother Heart attack Surgical History Surgical History History of total adrenalectomy History of colonoscopy History of lithotripsy (~2014) History of bilateral inguinal hernia repair (~2014) History of esophagogastroduodenoscopy (EGD) History of prostate surgery (~2017) History of cholecystectomy (~2019) History of cardiac cath (~2010) Social History Social History Alcohol intake: never Patient Tobacco Use Status: Current everyday Tobacco user Cigarette Packs Per Day: 1 Cigarettes Per Day: 20.0 Years Smoked: 50 Substance Use Type: Marijuana Advance Directives Date on File: 02/09/20 Meds Allergies Allergy/AdvReac Type Severity Reaction Status Date / Time Penicillins [PENICILLINS] Allergy Severe THROAT Verified 10/07/22 15:00 SWELLING penicillin V Allergy Unknown anaphylaxis Verified 10/07/22 15:00 Home Medications Medication Instructions Recorded Confirmed Last Taken Type aspirin 81 mg tablet,delayed 81 mg PO BEDTIME 03/15/20 07/10/22 Unknown History release atorvastatin 40 mg tablet 40 mg PO BEDTIME 03/15/20 07/10/22 Unknown History fluoxetine 40 mg capsule 40 mg PO DAILY 03/15/20 07/10/22 Unknown History hydroxyzine HCl 50 mg tablet 50 mg PO BEDTIME 03/15/20 07/10/22 Unknown History ibuprofen 800 mg tablet 800 mg PO TID PRN Pain 03/15/20 07/10/22 Unknown History isosorbide mononitrate 60 mg 60 mg PO QAM 03/15/20 07/10/22 Unknown History tablet,extended release 24 hr lisinopril 10 1 tab PO QAM 03/15/20 07/10/22 Unknown History mg-hydrochlorothiazide 12.5 mg tablet methimazole 5 mg tablet 5 mg PO QAM 03/15/20 07/10/22 Unknown History tamsulosin 0.4 mg capsule 0.4 mg PO BEDTIME 03/15/20 07/10/22 Unknown History gabapentin 600 mg tablet 600 mg PO TID 06/05/20 07/10/22 Unknown History metformin 1,000 mg tablet 1,000 mg PO BID 12/13/20 07/10/22 Unknown History nitroglycerin 0.4 mg sublingual 0.4 mg sublingual angina 12/13/20 07/10/22 Unknown History tablet glipizide 5 mg tablet, extended 5 mg PO DAILY 07/10/22 07/10/22 Unknown History release 24 hr Exam Airway Mallampati Class: II (edentulous upper) TM Dist: >3cm Neck ROM: Full Loose/Missing/Broken Teeth: Yes and Upper Lungs: wheezing and scattered rhonchi throughout Assessment and Plan Final Anesthetic Review NPO: Yes ASA Class: III Final Preanesthetic Review: Meds/Allgs Chart Reviewed, Consent Obtained/Reviewed and Anes Risks/Benef Reviewed Patient Risk: Intermediate Procedure Risk: Intermediate Anesthetic Plan Anesthetic Plan: MAC: Disposition: Standard PACU
[2023-02-06 10:51] LABS: Glucose, Whole Blood 95 mg/dL (60-115)
[2023-02-06 11:12] VITALS: BP 149/77; PULSE 53; RESP 18; TEMP 36.6; O2SAT 97
[2023-02-06] MEDS: Albuterol/Iprat 2.5/0.5MG 3 ML AMPUL.NEB INHALE (11:43)
--- NOTE | 2023-02-06 11:49 | MHC.SHP ---
Pre-Procedural Eval Section A Date of Service: 02/06/23 The patient is an INPATIENT: No The History & Physical has been completed within 30 days and I have reviewed it.: No Section B Chief Complaint: Screening, IBS w/diarrhea, GERD, abdominal pain Relevant Family History (Specify if Yes): No Relevant Social History: Tobacco Use Present Medications: see Short Stay Collaborative assessment Medical History: Significant History (BPH (benign prostatic hyperplasia) CAD (coronary artery disease) Chest pain COPD (chronic obstructive pulmonary disease) Cough Diabetes mellitus type 2, controlled GERD (gastroesophageal reflux disease) H/O benign carcinoid tumor HLD (hyperlipidemia) HTN (hypertension) Hyperthyroidism IBS (irritable) History of Previous Operations: Relevant previous surgery/procedure and date(s) (History of bilateral inguinal hernia repair (~2014) History of cardiac cath (~2010) History of cholecystectomy (~2019) History of colonoscopy History of esophagogastroduodenoscopy (EGD) History of lithotripsy (~2014) History of prostate surgery (~2017) History of total adrenalectomy) Allergies: Allergies Allergy/AdvReac Type Severity Reaction Status Date / Time Penicillins [PENICILLINS] Allergy Severe THROAT Verified 10/07/22 15:00 SWELLING penicillin V Allergy Unknown anaphylaxis Verified 10/07/22 15:00 Review of Systems Sugical H&P ROS: Negative: Constitution, Cardiovascular, Respiratory and Gastrointestinal Exam Surgical H&P Exam: Normal: Heart, Normal: Lungs, Normal: Extremities and Normal: Abdomen Plan Diagnosis/Plan: Change (Proceed with EGD (GERD, dysphagia) and colon (FU of colon polyps)) I have reviewed the history and physical and performed a pertinent physical examination on my patient. No changes have occurred unless specified. Time Spent With Patient Time: Total time managing care of this patient today ____ minutes.
--- NOTE | 2023-02-06 12:42 | W.PM.OPN ---
Operative Note Operative Note Date of Service: 02/06/23 Narrative: FLEXIBLE TRANSORAL UPPER GASTROINTESTINAL ENDOSCOPY WITH BIOPSIES AND ESOPHAGEAL BALLOON DILATION AND COLONOSCOPY TILL CECUM WITH BIOPSIES AND SNARE POLYPECTOMY Pre-op diagnosis: surveillance of colon polyps, IBS with diarrhea, GERD, abdominal pain, dysphagia, hx of esophageal stricture on past barium swallow Post-op diagnosis: GERD, gastric ulcer, Colon polyps, diverticulosis, hemorrhoids? Endoscopist:? Nilay Del Rosario MD Anesthesia:?MAC UPPER ENDOSCOPY Consent: Indications for the procedure and potential complications of bleeding, perforation, reaction to medications and missed diagnosis were discussed with the patient and informed consent was obtained. Instrument: Olympus GIF H 190 mid size upper endoscope Monitoring: Vital signs and clinical assessment, continuous EKG monitoring, Pulse oximetry, Carbon Dioxide monitoring and blood pressure monitoring were done throughout the procedure. Procedure: The patient was placed in the left lateral decubitis position and pre-procedure medications were administered and a bite block was placed. The endoscope was inserted into the mouth and advanced under direct vision to the third part of duodenum. A careful inspection was made as the upper endoscope was withdrawn including a retroflexed examination of the proximal stomach; Findings and interventions are described below. Findings: Larynx: Normal Esophagus: GE junction at 40 cms. Irregular Z line - biopsied to check for Herrera's. Mildly tortuous esophagus without stricture or ring Mid size upper endoscope passed through the GE junction without resistance Balloon dilation was performed with a 20 mm (60 F) CRE balloon x 60 seconds Stomach: Mild gastric erythema - Biopsies were obtained. A 15 to 18 mm area of erythema with multiple 2-3 mm ulcers in the antrum - biopsied. Grade 2 flap valve on retroflexed examination of the cardia. Duodenum: Prominent folds/nodule in the apex of the bulb - benign on past biopsies. Normal descending duodenum - Biopsies were obtained to check for celiac sprue Intervention: Biopsies and esophageal balloon dilation as noted above COLONOSCOPY PROCEDURE NOTE Consent: Indications for the procedure and potential complications of bleeding, perforation, reaction to medications and missed diagnosis were discussed with the patient and informed consent was obtained. Instrument: Olympus PCF H 190 L variable stiffness pediatric colonoscope Monitoring: Vital signs and clinical assessment, intermittent blood pressure monitoring, continuous EKG monitoring, Pulse oximetry and Carbon Dioxide monitoring were done throughout the procedure. Colon withdrawl time was minutes. Procedure: The patient was placed in the left lateral decubitis position and pre-procedure medications were administered. After a digital rectal examination of the ano-rectum, the video colonoscope was inserted into the rectum and advanced through the colon to the cecum. The colonoscope was slowly withdrawn in a retrograde panoramic fashion and the colon mucosa was carefully examined including a retroflexed view of the rectum. Findings and interventions are described below. Procedure Difficulty: : Without difficulty Findings: Terminal Ileum: Not evaluated Cecum: Normal Ascending Colon: A 10-12 mm sessile polyp in the mid AC - removed with a hot snare Transverse Colon: Normal Descending Colon: Normal Sigmoid Colon: Two 8 to 10 mm sessile polyps - removed with a hot snare. Moderate diverticulosis Rectum: Normal Ano-rectum: Moderate internal hemorrhoids Colon preparation: Good after copious irrigation due to excessive bubbles Impression and Post Procedure Diagnosis: Endoscopy Findings: ESOPHAGUS: Irregular Z line - biopsied to check for Herrera's. Mildly tortuous esophagus without stricture or ring Mid size upper endoscope passed through the GE junction without resistance Balloon dilation was performed with a 20 mm (60 F) CRE balloon x 60 seconds STOMACH: A 15 to 18 mm area of erythema with multiple 2-3 mm ulcers in the antrum - biopsied. DUODENUM: Prominent folds/nodule in the apex of the bulb - benign on past biopsies. Normal descending duodenum - Biopsies were obtained to check for celiac sprue Colonoscopy Findings: Three medium sized polyps removed Biopsies obtained from right colon to check for microscopic colitis Moderate diverticulosis seen in the left colon Moderate hemorrhoids on retroflexed exam. Plan: Await pathology results Patient has an appointment on 02/18/23 in the [facility] with Antonella Gurrola FNP-BC . Repeat Colonoscopy interval based on path results - in 3 years if polyps are adenomatous and if pt's pulmonary status remains stable (consider GA with ETT for future procedures since pt had excessive coughing spells during the procedure making it challenging to examine the colon and perform polypectomy). Above findings were reviewed with the patient and colon polyps and diverticulosis handouts were given in the discharge area
[2023-02-06 14:05] VITALS: BP 108/67; PULSE 99; RESP 22; TEMP 36.6
[2023-02-06 14:20] VITALS: BP 124/59; PULSE 89; RESP 14; TEMP 36.4; O2SAT 96
== END 2023-02-06 14:49 | disposition home or self-care (01) ==
PROVIDERS: PCP Pediatrics; Visit Provider Internal Medicine Gastroenterology
PROC: (CPT 45385; principal; 2023-02-06 12:00)
DX: Z12.11 Encounter for screening for malignant neoplasm of colon (principal); Z86.010 Personal history of colon polyps; D12.2 Benign neoplasm of ascending colon; D12.5 Benign neoplasm of sigmoid colon; K57.30 Diverticulosis of large intestine without perforation or abscess without bleeding; K64.8 Other hemorrhoids; K58.0 Irritable bowel syndrome with diarrhea; R13.10 Dysphagia, unspecified; K21.9 Gastro-esophageal reflux disease without esophagitis; K22.89 Other specified disease of esophagus; K29.60 Other gastritis without bleeding; K25.9 Gastric ulcer, unspecified as acute or chronic, without hemorrhage or perforation; N40.0 Benign prostatic hyperplasia without lower urinary tract symptoms; I10 Essential (primary) hypertension; J44.9 Chronic obstructive pulmonary disease, unspecified; E11.9 Type 2 diabetes mellitus without complications; E78.5 Hyperlipidemia, unspecified; Z79.1 Long term (current) use of non-steroidal anti-inflammatories (NSAID); Z79.82 Long term (current) use of aspirin; Z79.84 Long term (current) use of oral hypoglycemic drugs; Z79.899 Other long term (current) drug therapy; Z88.0 Allergy status to penicillin; Z98.890 Other specified postprocedural states; F17.210 Nicotine dependence, cigarettes, uncomplicated
CPT/HCPCS: 45385; 45380; 43248; 43239; 82947; 88305; 88342; C1726; J2250; J3010

== ENCOUNTER → 2023-02-06 09:24 | Outpatient (BNV) | payer MEDICARE, SELFPAY | PROVIDERS: PCP Pediatrics; Visit Provider Internal Medicine Gastroenterology | DX: Z12.11 Encounter for screening for malignant neoplasm of colon (principal); Z86.010 Personal history of colon polyps; K58.9 Irritable bowel syndrome, unspecified; K21.9 Gastro-esophageal reflux disease without esophagitis; K22.2 Esophageal obstruction; D12.2 Benign neoplasm of ascending colon; D12.5 Benign neoplasm of sigmoid colon; K64.8 Other hemorrhoids | CPT/HCPCS: 43249; 45385 ==

== ENCOUNTER 2023-02-10 11:10 | Outpatient (AMB) | payer MEDICARE, SELFPAY ==
--- NOTE | 2023-02-10 11:17 | A.OFFVIS_ITS ---
Intake Vital Signs 02/10/23 11:18 Height 5 ft 7 in Weight 211 lb 10.3 oz BMI 33.1 BP 122/77 Blood Pressure Location Lt brachial Position Sitting Pulse 71 Pulse Source Doppler Pulse Oximetry (%) 95 Oxygen Delivery Method Room Air Intake Visit Reasons: copd Allergies Penicillins [PENICILLINS] Allergy (Severe, Verified 02/10/23 11:21) THROAT SWELLING penicillin V Allergy (Unknown, Verified 02/10/23 11:21) anaphylaxis HPI copd HPI Details 67-year-old gentleman, active 40+ pack-y ear smoker, referred for evaluation management of underlying enlarging right lower lobe 1.2 cm pulmonary nodule and COPD.? He denies family history of lung diseases.? 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 He completed a follow-up CT chest that showed increasing size in his right lower nodule from 8 up to 10 mm and a new right upper lobe 7 mm nodule.? Patient was evaluated by thoracic surgery and decision has been reached to resect right-sided pulmonary nodules with wedge resection with one being a benign tumour and another a non tumour nodule.? He has been using Trelegy and albuterol MDI with good baseline control of his underlying COPD.? F last office visit his been treated with a course of Levaquin with improvement in his cough, however a did come back, again productive of sputum. [facility] Medical History IBS (irritable bowel syndrome) Personal history of nicotine dependence Diabetes mellitus type 2, controlled Tubular adenoma of colon (~2019) GERD (gastroesophageal reflux disease) H/O benign carcinoid tumor Cough Back pain Anxiety and depression Lung nodule BPH (benign prostatic hyperplasia) Hyperthyroidism Left adrenal mass HLD (hyperlipidemia) CAD (coronary artery disease) Chest pain Obesity HTN (hypertension) COPD (chronic obstructive pulmonary disease) Surgical History History of total adrenalectomy History of colonoscopy History of lithotripsy (~2014) History of bilateral inguinal hernia repair (~2014) History of esophagogastroduodenoscopy (EGD) History of prostate surgery (~2017) History of cholecystectomy (~2019) History of cardiac cath (~2010) Family History Father Cancer Mother Lung cancer Brother Heart attack Social History Alcohol intake: never Patient Tobacco Use Status: Current everyday Tobacco user Cigarette Packs Per Day: 1 Cigarettes Per Day: 20.0 Years Smoked: 50 Substance Use Type: Marijuana Advance Directives Date on File: 02/09/20 Review of Systems Const Denies daytime sleepiness, Denies excessive sweating, Denies fatigue, Denies fever(s), Denies lethargy, Denies malaise, Denies night sweats, Denies snoring and Denies weight loss Eyes Denies blurry vision and Denies itchy eyes ENT Denies nasal congestion, Denies post nasal drip, Denies sinus pain, Denies sinus pressure and Denies other ( Thrush) Card Denies chest pain, Denies pedal edema, Denies dyspnea, Reports dyspnea on exertion, Denies orthopnea and Denies paroxysmal nocturnal dyspnea Resp Reports cough, Denies hemoptysis, Reports excessive phlegm production, Denies dyspnea, Reports dyspnea on exertion, Denies snoring and Denies wheezing GI Denies abdominal pain and Denies heartburn Musc Denies myalgias, Denies arthralgias and Denies joint swelling Skin/Breast Denies rash Neuro Denies memory loss and Denies seizure-like activity Psych Denies abnormal sleep pattern, Denies anxiety and Denies memory loss Endo Denies excessive sweating, Denies fatigue and Denies heat intolerance Kwasi/Lymph Denies easy bruising Aller/Immun Denies itchy eyes, Denies seasonal rhinorrhea and Denies wheezing Physical Exam Vital Signs: Last Vital Signs Pulse 71 02/10/23 11:18 BP 122/77 02/10/23 11:18 Pulse Ox 95 02/10/23 11:18 Oxygen Delivery Method Room Air 02/10/23 11:18 BMI result Body Mass Index 33.1 Const General: no acute distress and alert Nutritional Appearance: not obese Orientation/consciousness: Other orientation findings ( oriented) HEENT Head: Yes atraumatic Eyes General: appearance normal, both eyes and all related structures Sclerae: sclerae normal EOM: EOMs intact bilaterally Neck Neck: Yes supple Lymphatic: no lymphadenopathy noted Resp Effort & Inspection: normal respiratory effort and no use of accessory muscles Auscultation: clear to auscultation bilaterally Cardio Rate: regular rate Rhythm: regular rhythm Heart sounds: no gallops, no murmurs and no rubs Skin General skin exam: other ( warm) Extrem General: No clubbing, No cyanosis and No edema Assessment & Plan Assessment & Plan (1) COPD (chronic obstructive pulmonary disease): Code(s): J44.9 - Chronic obstructive pulmonary disease, unspecified Plan: Slowly worsening baseline controlled on Trelegy, albuterol MDI/nebs. Will add theophylline. Will treat bronchitic exacerbation with a course of doxycycline. (2) Lung nodule: Code(s): R91.1 - Solitary pulmonary nodule Plan: Follow-up CT chest is pending for February of 2023. Orders: Orders CT chest wo IV con 03/16/23 R91.1 - Solitary pulmonary nodule Medications: New theophylline ER 400 mg PO DAILY 30 days 30 tabs 6RF doxycycline monohydrate 100 mg PO BID 28 caps 0RF 14 days Coding Level of Care Code Est Pt Level 4 (76437) Diagnoses COPD (chronic obstructive pulmonary disease) J44.9 Lung nodule R91.1
[2023-02-10 11:18] VITALS: BP 122/77; PULSE 71; O2SAT 95; BMI 33.1
== END 2023-02-10 11:33 | disposition home or self-care (01) ==
PROVIDERS: PCP Pediatrics; Visit Provider Internal Medicine Pulmonary Disease
DX: J44.9 Chronic obstructive pulmonary disease, unspecified (principal); R91.1 Solitary pulmonary nodule
CPT/HCPCS: 99214

== ENCOUNTER → 2023-02-10 11:10 | Outpatient (BNVA) | payer MEDICARE, SELFPAY | PROVIDERS: PCP Pediatrics; Visit Provider Internal Medicine Pulmonary Disease | DX: J44.9 Chronic obstructive pulmonary disease, unspecified (principal); R91.1 Solitary pulmonary nodule; F17.210 Nicotine dependence, cigarettes, uncomplicated | CPT/HCPCS: 99212 ==

== ENCOUNTER 2023-03-03 11:20 | Outpatient (REF) | payer MEDICARE, SELFPAY ==
[2023-03-03 14:30] LABS: Appearance Urine Clear; Color Urine Yellow; Glucose Urine UA Negative (Negative); Leukocyte Esterase Urine Negative (Negative); Nitrite Urine Negative (Negative); PH 5.5 (5.0-9.0); Specific Gravity - Urine 1.025 (1.005-1.025); UMIC TRIGGER UA YES; Urine Blood Negative (Negative); Urine Ketones Negative (Negative); Urine Protein 300 (3+) mg/dL (Neg-Trace)
[2023-03-03 14:34] LABS: Bacteria Urine None Seen (None Seen); Hyaline Casts Urine 0-2 /LPF (0-2); RBC Urine 0-2 /HPF (0-2); Squamous Epithelial Cell Urine 0-2 /HPF (0-2); WBC Urine 0-5 /HPF (0-5)
== END 2023-03-03 11:21 | disposition home or self-care (01) ==
LOC: HO.CHCLDS 11:20
PROVIDERS: Visit Provider Internal Medicine
DX: E11.9 Type 2 diabetes mellitus without complications (principal)
CPT/HCPCS: 81001

== ENCOUNTER 2023-03-16 07:22 | Outpatient (REF) | payer MEDICARE, OTHER, SELFPAY ==
--- NOTE | ~2023-03-16 | CT_ITS ---
EXAMINATION: CT CHEST WITHOUT CONTRAST CLINICAL INFORMATION: Solitary pulmonary nodule COMPARISON: CT chest from 08/25/2022, chest radiograph from 01/28/2023 TECHNIQUE: Multidetector volumetric CT imaging of the chest was done. Axial MIP volume rendering provided. Sagittal and coronal reformatted images were obtained. This CT examination was performed using dose optimization techniques as appropriate, variously including the following: *Automated exposure control *Adjustment of mA and/or kV according to patient size (this includes techniques or standardized protocols for targeted exams where dose is matched to indication/reason for exam; i.e. extremities or head) *Use of iterative reconstruction technique DLP: 187 mGy-cm FINDINGS: LUNGS/PLEURA: Redemonstration of postsurgical changes of the right upper and right lower lobe. Previously identified groundglass foci in the right upper lobe now demonstrate interval development of solid internal components (series 5, image 238 and 300) with peripheral groundglass halo, the largest of these solid components measures up to 1.0 cm. Emphysematous changes. Peripheral reticular nodular opacities. Stable 3 mm nodule in the left upper lobe (series 5, image 180). Stable 4 mm nodule in the posterior medial aspect of the left lower lobe (series 5, image 319). Stable 3 mm nodule in the medial aspect of the left lower lobe (series 5, image 444). A few groundglass foci in the left lower lobe are less conspicuous from prior imaging. Central airways are patent. No pneumothorax. No large pleural effusion. MEDIASTINUM: Heart is not enlarged. No pericardial effusion. Coronary artery calcifications are noted. Aorta is nonaneurysmal and demonstrates atherosclerotic calcifications. Main pulmonary artery is not enlarged. A few mildly prominent mediastinal lymph nodes are redemonstrated the largest in the right paratracheal region measuring 1.2 cm in short axis. Visualized portions of the thyroid are unremarkable. AXILLA: No lymphadenopathy. UPPER ABDOMEN: Status post cholecystectomy. Left adrenalectomy. Small to moderate hiatal hernia. OSSEOUS STRUCTURES: Multilevel degenerative changes of the thoracolumbar spine with anterior bridging osteophytes. Partially visualized lower cervical spinal hardware CT/CT chest wo IV con IMPRESSION: 1. Redemonstration postsurgical changes of the right upper and right lower lobes. 2. Previously identified groundglass foci in the right upper lobe now demonstrate interval development of solid internal components with peripheral groundglass halos, the largest of these solid components measures up to 1.0 cm. Follow-up as per oncologic criteria 3. Multiple additional bilateral pulmonary nodules are stable. 4. A few mildly prominent mediastinal lymph nodes are redemonstrated the largest in the right paratracheal region measuring 1.2 cm in short axis.
== END 2023-03-16 07:23 | disposition home or self-care (01) ==
LOC: HO.CT 07:22
PROVIDERS: PCP Pediatrics; Visit Provider Internal Medicine Pulmonary Disease
DX: R91.1 Solitary pulmonary nodule (principal)
CPT/HCPCS: 71250

== ENCOUNTER 2023-03-24 10:38 | Outpatient (AMB) | payer MEDICARE, SELFPAY ==
--- NOTE | 2023-03-24 10:44 | A.OFFVIS_ITS ---
Intake Vital Signs 03/24/23 10:45 Height 5 ft 7 in Weight 215 lb BMI 33.7 BP 158/82 H Blood Pressure Location Lt brachial Position Sitting Pulse 61 Pulse Source Doppler Pulse Oximetry (%) 95 Oxygen Delivery Method Room Air Intake Visit Reasons: copd Allergies Penicillins [PENICILLINS] Allergy (Severe, Verified 03/24/23 10:49) THROAT SWELLING penicillin V Allergy (Unknown, Verified 03/24/23 10:49) anaphylaxis HPI copd HPI Details 67-year-old gentleman, active 40+ pack-y ear smoker, referred for evaluation management of underlying enlarging right lower lobe 1.2 cm pulmonary nodule and COPD.? He denies family history of lung diseases.? 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 He completed a follow-up CT chest that showed increasing size in his right lower nodule from 8 up to 10 mm and a new right upper lobe 7 mm nodule.? Patient was evaluated by thoracic surgery and decision has been reached to resect right-sided pulmonary nodules with wedge resection with one being a benign tumour and another a non tumour nodule.? He has been using Trelegy, theophylline, and albuterol MDI with good baseline control of his underlying COPD.? After the last office visit patient has been treated with a course of doxycycline with improvement in his bronchitic symptoms. He denies acute exacerbations. His follow-up CT chest is pending. [facility] Medical History IBS (irritable bowel syndrome) Personal history of nicotine dependence Diabetes mellitus type 2, controlled Tubular adenoma of colon (~2019) GERD (gastroesophageal reflux disease) H/O benign carcinoid tumor Cough Back pain Anxiety and depression Lung nodule BPH (benign prostatic hyperplasia) Hyperthyroidism Left adrenal mass HLD (hyperlipidemia) CAD (coronary artery disease) Chest pain Obesity HTN (hypertension) COPD (chronic obstructive pulmonary disease) Surgical History History of total adrenalectomy History of colonoscopy History of lithotripsy (~2014) History of bilateral inguinal hernia repair (~2014) History of esophagogastroduodenoscopy (EGD) History of prostate surgery (~2017) History of cholecystectomy (~2019) History of cardiac cath (~2010) Family History Father Cancer Mother Lung cancer Brother Heart attack (Updated 03/24/23 @ 10:53 by Kathy Gomez Jose Francisco) Alcohol intake: never Patient Tobacco Use Status: Current everyday Tobacco user Cigarette Packs Per Day: 1.5 Cigarettes Per Day: 30.0 Years Smoked: 50 Substance Use Type: Marijuana Advance Directives Date on File: 02/09/20 Review of Systems Const Denies daytime sleepiness, Denies excessive sweating, Denies fatigue, Denies fever(s), Denies lethargy, Denies malaise, Denies night sweats, Denies snoring and Denies weight loss Eyes Denies blurry vision and Denies itchy eyes ENT Denies nasal congestion, Denies post nasal drip, Denies sinus pain, Denies sinus pressure and Denies other ( Thrush) Card Denies chest pain, Denies pedal edema, Denies dyspnea, Denies orthopnea and Denies paroxysmal nocturnal dyspnea Resp Denies cough, Denies hemoptysis, Denies excessive phlegm production, Denies dyspnea, Denies snoring and Denies wheezing GI Denies abdominal pain and Denies heartburn Musc Denies myalgias, Denies arthralgias and Denies joint swelling Skin/Breast Denies rash Neuro Denies memory loss and Denies seizure-like activity Psych Denies abnormal sleep pattern, Denies anxiety and Denies memory loss Endo Denies excessive sweating, Denies fatigue and Denies heat intolerance Kwasi/Lymph Denies easy bruising Aller/Immun Denies itchy eyes, Denies seasonal rhinorrhea and Denies wheezing Physical Exam Vital Signs: Last Vital Signs Pulse 61 03/24/23 10:45 BP 158/82 H 03/24/23 10:45 Pulse Ox 95 03/24/23 10:45 Oxygen Delivery Method Room Air 03/24/23 10:45 BMI result Body Mass Index 33.7 Const General: no acute distress and alert Nutritional Appearance: not obese Orientation/consciousness: Other orientation findings ( oriented) HEENT Head: Yes atraumatic Eyes General: appearance normal, both eyes and all related structures Sclerae: sclerae normal EOM: EOMs intact bilaterally Neck Neck: Yes supple Lymphatic: no lymphadenopathy noted Resp Effort & Inspection: normal respiratory effort and no use of accessory muscles Auscultation: clear to auscultation bilaterally Cardio Rate: regular rate Rhythm: regular rhythm Heart sounds: no gallops, no murmurs and no rubs Skin General skin exam: other ( warm) Extrem General: No clubbing, No cyanosis and No edema Assessment & Plan Assessment & Plan (1) COPD (chronic obstructive pulmonary disease): Code(s): J44.9 - Chronic obstructive pulmonary disease, unspecified Plan: Well controlled on current regimen of Trelegy, theophylline, and albuterol MDI. Continue current regimen. (2) Lung nodule: Code(s): R91.1 - Solitary pulmonary nodule Plan: Waxing waning lung nodules, with prior resection showing non tumor nodule and one benign tumor. Follow-up CT chest is pending. Will continue with surveillance next in 6 months. Orders: Orders CT chest wo IV con 08/23/23 R91.1 - Solitary pulmonary nodule Coding Level of Care Code Est Pt Level 4 (39283) Diagnoses COPD (chronic obstructive pulmonary disease) J44.9 Lung nodule R91.1
[2023-03-24 10:45] VITALS: BP 158/82; PULSE 61; O2SAT 95; BMI 33.7
== END 2023-03-24 11:03 | disposition home or self-care (01) ==
PROVIDERS: PCP Pediatrics; Visit Provider Internal Medicine Pulmonary Disease
DX: J44.9 Chronic obstructive pulmonary disease, unspecified (principal); R91.1 Solitary pulmonary nodule
CPT/HCPCS: 99214

== ENCOUNTER → 2023-03-24 10:38 | Outpatient (BNVA) | payer MEDICARE, SELFPAY | PROVIDERS: PCP Pediatrics; Visit Provider Internal Medicine Pulmonary Disease | DX: J44.9 Chronic obstructive pulmonary disease, unspecified (principal); R91.1 Solitary pulmonary nodule | CPT/HCPCS: 99212 ==

== ENCOUNTER 2023-04-07 10:56 | Outpatient (REF) | payer MEDICARE, SELFPAY ==
[2023-04-07 13:16] LABS: C Reactive Protein 0.24 mg/dL (< or = 0.50)
[2023-04-11 13:34] LABS: Vitamin D 25-OH, D2 <4 ng/mL; Vitamin D 25-OH, D3 27 ng/mL; Vitamin D 25-OH, Total 27 ng/mL (30-100)
== END 2023-04-07 10:57 | disposition home or self-care (01) ==
LOC: HO.LAB 10:56
PROVIDERS: PCP Pediatrics; Visit Provider Nurse Practitioner Family
DX: K21.9 Gastro-esophageal reflux disease without esophagitis (principal); K58.0 Irritable bowel syndrome with diarrhea; K57.90 Diverticulosis of intestine, part unspecified, without perforation or abscess without bleeding; D36.9 Benign neoplasm, unspecified site; R14.0 Abdominal distension (gaseous); R15.9 Full incontinence of feces; E55.9 Vitamin D deficiency, unspecified; Z71.2 Person consulting for explanation of examination or test findings
CPT/HCPCS: 36415; 82306; 86140; 99212

== ENCOUNTER 2023-04-07 10:56 | Outpatient (AMB) | payer MEDICARE, SELFPAY ==
--- NOTE | 2023-04-07 10:57 | MHC.OFFVIS ---
Intake Vital Signs 04/07/23 11:04 Height 5 ft 7 in Weight 216 lb 0.848 oz BMI 33.8 BP 149/77 H Blood Pressure Location Lt brachial Position Sitting Pulse 68 Intake Visit Reasons: s/p EGD/colo Intake Note: Sean presents in the office as as follow up egd and colo. CC: He just has questions regading his stretched esophagus and the other results to his procedures. He states that he is still having issues swallowing. 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 Discussed with patient avoiding dietary triggers and late night snacking. Staying upright for minimal 3 hours after meals discussed with patient. Eating smaller meals and more often recommended Diarrhea Status post cholecystectomy. Discussed with patient avoiding food that is high in fat and did have hand have symptoms. Continue cholestyramine add Citrucel twice a day. Postprandial abdominal bloating Avoid dietary triggers. Patient was encouraged to stop smoking. Will send a script for simethicone. I will see patient in 2 months, sooner on as needed basis. Patient is agreeable to this plan and verbalizes understanding of instructions. He was given the opportunity to ask questions and all questions answered. Plan Medications New lansoprazole 30 mg PO DAILY 30 caps 3RF K21.9 - Gastro-esophageal reflux disease without esophagitis simethicone (Gas Relief (simethicone)) 125 mg PO TID-QID PRN 120 caps 2RF abdominal distention Discontinued pantoprazole take one tablet half an hour before breakfast Discontinued Reason: Doctor's Order 40 mg PO DAILY 30 tabs 2RF K21.9 - Gastro-esophageal reflux disease without esophagitis UPPER ENDOSCOPY AND COLONOSCOPY Findings: Larynx: Normal Esophagus: GE junction at 40 cms. Irregular Z line - biopsied to check for Herrera's. Mildly tortuous esophagus without stricture or ring Mid size upper endoscope passed through the GE junction without resistance Balloon dilation was performed with a 20 mm (60 F) CRE balloon x 60 seconds Stomach: Mild gastric erythema - Biopsies were obtained. A 15 to 18 mm area of erythema with multiple 2-3 mm ulcers in the antrum - biopsied. Grade 2 flap valve on retroflexed examination of the cardia. Duodenum: Prominent folds/nodule in the apex of the bulb - benign on past biopsies. Normal descending duodenum - Biopsies were obtained to check for celiac sprue Intervention: Biopsies and esophageal balloon dilation as noted above Findings: Terminal Ileum: Not evaluated Cecum: Normal Ascending Colon: A 10-12 mm sessile polyp in the mid AC - removed with a hot snare Transverse Colon: Normal Descending Colon: Normal Sigmoid Colon: Two 8 to 10 mm sessile polyps - removed with a hot snare. Moderate diverticulosis Rectum: Normal Ano-rectum: Moderate internal hemorrhoids Colon preparation: Good after copious irrigation due to excessive bubbles Impression and Post Procedure Diagnosis: Endoscopy Findings: ESOPHAGUS: Irregular Z line - biopsied to check for Herrera's. Mildly tortuous esophagus without stricture or ring Mid size upper endoscope passed through the GE junction without resistance Balloon dilation was performed with a 20 mm (60 F) CRE balloon x 60 seconds STOMACH: A 15 to 18 mm area of erythema with multiple 2-3 mm ulcers in the antrum - biopsied. DUODENUM: Prominent folds/nodule in the apex of the bulb - benign on past biopsies. Normal descending duodenum - Biopsies were obtained to check for celiac sprue Colonoscopy Findings: Three medium sized polyps removed Biopsies obtained from right colon to check for microscopic colitis Moderate diverticulosis seen in the left colon Moderate hemorrhoids on retroflexed exam. Plan: Await pathology results Patient has an appointment on 02/18/23 in the [facility] with Antonella Gurrola FNP-BC . Repeat Colonoscopy interval based on path results - in 3 years if polyps are adenomatous and if pt's pulmonary status remains stable (consider GA with ETT for future procedures since pt had excessive coughing spells during the procedure making it challenging to examine the colon and perform polypectomy). PATHOLOGY RESULTS: Diagnosis A. Small bowel, biopsy: Small bowel mucosa with preserved villous architecture and increased intraepithelial lymphocytes (see comment). B. Stomach, antrum, biopsy: Gastric antral mucosa with mild reactive gastropathy; negative for Helicobacter pylori, intestinal metaplasia and dysplasia. C. Stomach, ulcer, biopsy: Gastric antral mucosa with marked reactive gastropathy and reactive epithelial changes in keeping with changes adjacent to ulcer; negative for Helicobacter pylori, intestinal metaplasia and dysplasia. D. Gastroesophageal junction, biopsy: Squamous and columnar junctional mucosa with mild chronic inactive inflammation; negative for intestinal metaplasia and dysplasia. E. Colon, ascending, polypectomy: Tubular adenoma; negative for high-grade dysplasia. F. Colon, right, biopsy: Colonic mucosa within normal limits; negative for active, chronic or microscopic colitis. G. Colon, sigmoid, polypectomy: Tubular adenoma; negative for high-grade dysplasia. COMMENT (A): These findings raise the possibility of celiac disease; however other pathologic processes, including H. pylori gastritis, peptic duodenitis, food allergies other than celiac disease, tropical sprue, viral enteritis, injury caused by drugs, autoimmune enteropathy, immunodeficiencies and Crohn's disease can induce intraepithelial lymphocytosis with or without associated architectural changes. In many cases no definite cause is identified. Clinical and serological correlation is recommended TODAY'S VISIT Patient is here today for follow-up and discuss upper endoscopy and colonoscopy results. Both procedures discussed with patient. Patient will need to return for colorectal screening in 3 years due to tubular adenoma found. Patient was coughing frequently during the procedure and will need to go under general anaesthesia with ETT. Patient continues to have postprandial loose stools. Patient is not taking cholestyramine. Increased intraepithelial lymphocytes seen in duodenum, suspicion of celiac, however we did celiac studies and the came back negative. Patient was taking ibuprofen frequently that could be the cause as well. Patient stopped taking ibuprofen just recently. Patient reports that he is not following any particular diet. Reports that yesterday he had 3 bowels of chicken soup and right after that he had loose stools. Patient was encouraged in the past to follow FODMAP diet. Avoid food that is high in fat. He does have a history of cholecystectomy and he was made aware that after eating meals that are high in fat he might have loose stools. Patient reports that he is taking Citrucel twice a day. Patient denies any nausea or vomiting. Reports to have occasional dyspepsia without dysphagia or odynophagia. As mentioned above patient had balloon dilation during endoscopy procedure. Patient is taking lansoprazole of reports that symptoms are little better. Still gets acid reflux. Patient reports that he is not moving late at night. [facility] Medical History (Updated 04/07/23 @ 11:41 by Antonella Gurrola [facility]) Tubular adenoma Tubular adenoma IBS (irritable bowel syndrome) Personal history of nicotine dependence Diabetes mellitus type 2, controlled Tubular adenoma of colon (~2019) GERD (gastroesophageal reflux disease) H/O benign carcinoid tumor Cough Back pain Anxiety and depression Lung nodule BPH (benign prostatic hyperplasia) Hyperthyroidism Left adrenal mass HLD (hyperlipidemia) CAD (coronary artery disease) Chest pain Obesity HTN (hypertension) COPD (chronic obstructive pulmonary disease) Surgical History History of total adrenalectomy History of colonoscopy History of lithotripsy (~2014) History of bilateral inguinal hernia repair (~2014) History of esophagogastroduodenoscopy (EGD) History of prostate surgery (~2017) History of cholecystectomy (~2019) History of cardiac cath (~2010) Family History Father Cancer Mother Lung cancer Brother Heart attack Social History Alcohol intake: never Patient Tobacco Use Status: Current everyday Tobacco user Cigarette Packs Per Day: 1.5 Cigarettes Per Day: 30.0 Years Smoked: 50 Substance Use Type: Marijuana Advance Directives Date on File: 02/09/20 Review of Systems Const Denies weight gain and Denies weight loss ENT Reports no additional complaints, Denies dysphagia and Denies odynophagia Card Reports no additional complaints Resp Reports no additional complaints GI Denies abdominal pain, Denies belching, Denies melena, Denies bloating, Denies change in bowel habits, Denies dysphagia, Denies excessive flatus, Denies dyspepsia, Reports heartburn, Denies diarrhea, Reports loose stools, Denies nausea, Denies odynophagia and Denies vomiting Reports no additional complaints Musc Reports no additional complaints Neuro Reports no additional complaints Psych Reports no additional complaints Endo Reports no additional complaints Physical Exam Vital Signs: Last Vital Signs Pulse 68 04/07/23 11:04 BP 149/77 H 04/07/23 11:04 BMI result Body Mass Index 33.8 Const General: healthy appearing, no acute distress and well developed Nutritional Appearance: obese Orientation/consciousness: patient oriented x3 HEENT Head: Yes normal to inspection, Yes normocephalic and Yes atraumatic Face and sinus: Yes normal facial exam Mouth: Normal oral and palatal mucosa present Throat: Yes posterior oropharynx normal, Yes tonsils normal and Yes uvula midline Eyes General: appearance normal, both eyes and all related structures Neck Neck: Yes normal visual inspection, Yes full ROM and Yes trachea midline Thyroid: Thyroid normal Resp Effort & Inspection: normal respiratory effort, able to speak in complete sentences, no tracheal deviation and symmetric chest movement Auscultation: clear to auscultation bilaterally Cardio Rate: regular rate GI Inspection: Yes normal to inspection, No distended and Yes obesity Palpation (GI): Soft to palpation, not firm, nontender and No hepatosplenomegaly present Auscultation: normal bowel sounds General: Yes no CVA tenderness Back/Spine/Pelvis Back: no CVA tenderness Skin General skin exam: elasticity normal, turgor normal and dry skin Neuro General: patient oriented x3 Psych Appearance: grossly normal Mental Status: mental status grossly normal Affect: normal affect Assessment & Plan Assessment & Plan (1) IBS (irritable bowel syndrome): Code(s): K58.9 - Irritable bowel syndrome without diarrhea Qualifiers: Irritable bowel syndrome type: with diarrhea Qualified Code(s): K58.0 - Irritable bowel syndrome with diarrhea (2) GERD (gastroesophageal reflux disease): Code(s): K21.9 - Gastro-esophageal reflux disease without esophagitis Qualifiers: Esophagitis presence: esophagitis presence not specified Qualified Code(s): K21.9 - Gastro-esophageal reflux disease without esophagitis (3) Diverticulosis: Code(s): K57.90 - Diverticulosis of intestine, part unspecified, without perforation or abscess without bleeding (4) Tubular adenoma: Code(s): D36.9 - Benign neoplasm, unspecified site (5) Diarrhea: Code(s): R19.7 - Diarrhea, unspecified Qualifiers: Diarrhea type: functional diarrhea Qualified Code(s): K59.1 - Functional diarrhea (6) Postprandial abdominal bloating: Code(s): R14.0 - Abdominal distension (gaseous) Plan Patient was encouraged to change his diet. Follow FODMAP diet. Frequent postprandial loose stools related to what he eats. Patient has a history of cholecystectomy. Avoid food that is high in fat. Try to avoid lactose and gluten as much as possible. Patient reports to be very bloated, feeling gassy. Continue taking fiber twice a day. Eat meals that there are smaller and more often. Start taking cholestyramine before meals up to 4 times a day. Will send patient to check CRP, will recheck vitamin-D levels again today. Call protecting fecal to rule out any Crohn's. Right-sided colon study did not show any inflammatory processes. Patient will start taking famotidine at bedtime. Discussed with patient the importance of avoiding dietary triggers and late night snacking. Staying upright for minimum 3 hours after meals discussed with patient. I will see him in 3 months, sooner on as needed basis. Patient is agreeable to this plan and verbalizes understanding of instructions. He was given the opportunity to ask questions and all questions answered. Thank you for allowing me to participate in his care Orders: Orders Calprotectin, Fecal Today R15.9 - Full incontinence of feces C Reactive Protein Today K58.9 - Irritable bowel syndrome without diarrhea Vitamin D 25-OH (D2 and D3) Today E55.9 - Vitamin D deficiency, unspecified Medications: New famotidine 40 mg PO BEDTIME 30 tabs 3RF K21.9 - Gastro-esophageal reflux disease without esophagitis Changed From cholestyramine-aspartame 4 gram (Cholestyramine Light) administer w/meal; avoid other meds within 1hr before or 4-6hr after dose 4 grams PO BID 60 ea 2RF R19.7 - Diarrhea, unspecified To cholestyramine-aspartame 4 gram (Cholestyramine Light) administer w/meal; avoid other meds within 1hr before or 4-6hr after dose 4 grams PO QIDACHS 60 ea 4RF R19.7 - Diarrhea, unspecified Discontinued prednisone Discontinued Reason: Patient Completed Course 40 mg (4 x 10 mg) PO DAILY 5 days 20 tabs 0RF doxycycline monohydrate Discontinued Reason: Patient Completed Course 100 mg PO BID 14 days 28 caps 0RF Coding Level of Care Code Est Pt Level 4 (80815) Diagnoses Irritable bowel syndrome with diarrhea K58.0 Irritable bowel syndrome type: with diarrhea Gastroesophageal reflux disease, unspecified whether esophagitis present K21.9 Esophagitis presence: esophagitis presence not specified Diverticulosis K57.90 Tubular adenoma D36.9 Functional diarrhea K59.1 Diarrhea type: functional diarrhea Postprandial abdominal bloating R14.0 Time Spent (min) 40 Comment 25 minute spent with patient and additional 15 minutes spent reviewing his records
[2023-04-07 11:04] VITALS: BP 149/77; PULSE 68; BMI 33.8
== END 2023-04-07 11:33 | disposition home or self-care (01) ==
PROVIDERS: PCP Pediatrics; Visit Provider Nurse Practitioner Family
DX: K58.0 Irritable bowel syndrome with diarrhea (principal); K21.9 Gastro-esophageal reflux disease without esophagitis; K57.90 Diverticulosis of intestine, part unspecified, without perforation or abscess without bleeding; D36.9 Benign neoplasm, unspecified site; K59.1 Functional diarrhea; R14.0 Abdominal distension (gaseous)
CPT/HCPCS: 99214

== ENCOUNTER 2023-07-07 10:47 | Outpatient (AMB) | payer MEDICARE, SELFPAY ==
[2023-07-07 10:51] VITALS: BP 131/63; PULSE 70; BMI 34.4
--- NOTE | 2023-07-07 10:51 | A.OFFVIS_ITS ---
Intake Vital Signs 07/07/23 10:51 Height 5 ft 7 in Weight 219 lb 9.286 oz BMI 34.4 BP 131/63 Blood Pressure Location Lt brachial Position Sitting Pulse 70 Pulse Source Pulse Oximeter Intake Visit Reasons: 3 month follow up Intake Note: Pt presents to the office today for a 3 month follow up. Pt states he is feeling much better and denies any more diarrhea. Pt denies any N/V/D or constipation. He states he is having issues with GERD and Bloating. Allergies Penicillins [PENICILLINS] Allergy (Severe, Verified 07/07/23 10:53) THROAT SWELLING penicillin V Allergy (Unknown, Verified 07/07/23 10:53) anaphylaxis HPI 3 month follow up HPI Details LAST VISIT IBS (irritable bowel syndrome) GERD (gastroesophageal reflux disease) Diverticulosis Tubular adenoma Diarrhea Postprandial abdominal bloating Plan Patient was encouraged to change his diet. Follow FODMAP diet. Frequent postprandial loose stools related to what he eats. Patient has a history of cholecystectomy. Avoid food that is high in fat. Try to avoid lactose and gluten as much as possible. Patient reports to be very bloated, feeling gassy. Continue taking fiber twice a day. Eat meals that there are smaller and more often. Start taking cholestyramine before meals up to 4 times a day. Will send patient to check CRP, will recheck vitamin-D levels again today. Call protecting fecal to rule out any Crohn's. Right-sided colon study did not show any inflammatory processes. Patient will start taking famotidine at bedtime. Discussed with patient the importance of avoiding dietary triggers and late night snacking. Staying upright for minimum 3 hours after meals discussed with patient. I will see him in 3 months, sooner on as needed basis. Patient is agreeable to this plan and verbalizes understanding of instructions. He was given the opportunity to ask questions and all questions answered. ? Thank you for allowing me to participate in his care Orders Orders Calprotectin, Fecal Today R15.9 C Reactive Protein Today K58.9 Vitamin D 25-OH (D2 and D3) Today E55.9 TODAY'S VISIT Patient is here today for follow-up. Patient reports that he has been feeling better. Takes cholestyramine with all his meals about 3 to 4 times a day. He reports that he no longer has loose stools. Patient states that his bowels normalized. Patient also reports that he is eating better. Patient melena, hematochezia, unintentional weight loss or ribbon like stools. Patient denies any abdominal pain or discomfort. Colonoscopy in January of 2023, tubular adenoma found without high-grade dysplasia or carcinoma and 3 year colonoscopy recall recommendation made at that time. Patient reports that he is taking lansoprazole, however he states that he is still having some postprandial acid reflux most of the time. Patient denies eating late at night. Patient denies eating spicy food. Occasional fast food. [facility] Medical History Tubular adenoma Tubular adenoma IBS (irritable bowel syndrome) Personal history of nicotine dependence Diabetes mellitus type 2, controlled Tubular adenoma of colon (~2019) GERD (gastroesophageal reflux disease) H/O benign carcinoid tumor Cough Back pain Anxiety and depression Lung nodule BPH (benign prostatic hyperplasia) Hyperthyroidism Left adrenal mass HLD (hyperlipidemia) CAD (coronary artery disease) Chest pain Obesity HTN (hypertension) COPD (chronic obstructive pulmonary disease) Surgical History History of total adrenalectomy History of colonoscopy History of lithotripsy (~2014) History of bilateral inguinal hernia repair (~2014) History of esophagogastroduodenoscopy (EGD) History of prostate surgery (~2017) History of cholecystectomy (~2019) History of cardiac cath (~2010) Family History Father Cancer Mother Lung cancer Brother Heart attack Social History (Updated 07/07/23 @ 10:53 by Kaylin Henry MA) Alcohol intake: never Patient Tobacco Use Status: Current everyday Tobacco user Cigarette Packs Per Day: 1.5 Cigarettes Per Day: 10 Years Smoked: 50 Substance Use Type: Marijuana Advance Directives Date on File: 02/09/20 Review of Systems Const Denies weight gain and Denies weight loss ENT Reports no additional complaints, Denies dysphagia and Denies odynophagia Card Reports no additional complaints Resp Reports no additional complaints GI Denies abdominal pain, Denies belching, Denies melena, Denies bloating, Denies change in bowel habits, Denies dysphagia, Denies excessive flatus, Denies dyspepsia, Reports heartburn, Denies diarrhea, Reports loose stools (Occasional), Denies nausea, Denies odynophagia and Denies vomiting Reports no additional complaints Musc Reports no additional complaints Neuro Reports no additional complaints Psych Reports no additional complaints Endo Reports no additional complaints Physical Exam Vital Signs: Last Vital Signs Pulse 70 07/07/23 10:51 BP 131/63 07/07/23 10:51 BMI result Body Mass Index 34.4 Const General: healthy appearing, no acute distress and well developed Nutritional Appearance: well nourished Orientation/consciousness: patient oriented x3 Resp Effort & Inspection: normal respiratory effort, able to speak in complete sentences, no tracheal deviation and symmetric chest movement Auscultation: clear to auscultation bilaterally Cardio Rate: regular rate GI Inspection: Yes normal to inspection and No distended Palpation (GI): Soft to palpation, not firm, nontender and No hepatosplenomegaly present Auscultation: normal bowel sounds General: Yes no CVA tenderness Back/Spine/Pelvis Back: no CVA tenderness Skin General skin exam: elasticity normal, turgor normal and dry skin Neuro General: patient oriented x3 Psych Appearance: grossly normal Mental Status: mental status grossly normal Assessment & Plan Assessment & Plan (1) IBS (irritable bowel syndrome): Code(s): K58.9 - Irritable bowel syndrome without diarrhea Qualifiers: Irritable bowel syndrome type: with diarrhea Qualified Code(s): K58.0 - Irritable bowel syndrome with diarrhea (2) GERD (gastroesophageal reflux disease): Code(s): K21.9 - Gastro-esophageal reflux disease without esophagitis Qualifiers: Esophagitis presence: esophagitis presence not specified Qualified Code(s): K21.9 - Gastro-esophageal reflux disease without esophagitis (3) Diverticulosis: Code(s): K57.90 - Diverticulosis of intestine, part unspecified, without perforation or abscess without bleeding (4) Tubular adenoma: Code(s): D36.9 - Benign neoplasm, unspecified site (5) Diarrhea: Code(s): R19.7 - Diarrhea, unspecified Qualifiers: Diarrhea type: functional diarrhea Qualified Code(s): K59.1 - Functional diarrhea (6) Postprandial abdominal bloating: Code(s): R14.0 - Abdominal distension (gaseous) Plan Continue cholestyramine. Continue avoiding dietary triggers and late night s nacking. Staying upright for minimum 3 hours after meals discussed with patient. Patient will stay away from food that is spicy and greasy. Will stop lansoprazole and will start Nexium. Continue taking Citrucel daily. High-fiber diet discussed with patient. We also discussed with him low FODMAP diet and food recommended discussed with him. Patient was encouraged to eat smaller meals and more often. I will see him in 6 months, sooner on as needed basis. Patient is agreeable to this plan and verbalizes understanding of instructions. He was given the opportunity to ask questions and all questions answered. Thank you for allowing me to participate in his care Medications: New esomeprazole magnesium (Nexium) 40 mg PO DAILY 90 caps 5RF K21.9 - Gastro- esophageal reflux disease without esophagitis Discontinued lansoprazole Discontinued Reason: Doctor's Order 30 mg PO DAILY 30 caps 3RF K21.9 - Gastro-esophageal reflux disease without esophagitis levofloxacin Discontinued Reason: Patient Completed Course 750 mg PO DAILY 7 days 7 tabs 0RF R91.1 - Solitary pulmonary nodule Coding Level of Care Code Est Pt Level 3 (44248) Diagnoses Irritable bowel syndrome with diarrhea K58.0 Irritable bowel syndrome type: with diarrhea Gastroesophageal reflux disease, unspecified whether esophagitis present K21.9 Esophagitis presence: esophagitis presence not specified Diverticulosis K57.90 Tubular adenoma D36.9 Functional diarrhea K59.1 Diarrhea type: functional diarrhea Postprandial abdominal bloating R14.0 Time Spent (min) 30 Comment 20 minutes spent with patient and additional 10 minutes spent reviewing his records
== END 2023-07-07 11:10 | disposition home or self-care (01) ==
PROVIDERS: PCP Pediatrics; Visit Provider Nurse Practitioner Family
DX: K58.0 Irritable bowel syndrome with diarrhea (principal); K21.9 Gastro-esophageal reflux disease without esophagitis; K57.90 Diverticulosis of intestine, part unspecified, without perforation or abscess without bleeding; D36.9 Benign neoplasm, unspecified site
CPT/HCPCS: 99213

== ENCOUNTER → 2023-07-07 10:47 | Outpatient (BNVA) | payer MEDICARE, OTHER, SELFPAY | PROVIDERS: PCP Pediatrics; Visit Provider Nurse Practitioner Family | DX: K58.0 Irritable bowel syndrome with diarrhea (principal); K21.9 Gastro-esophageal reflux disease without esophagitis; K57.90 Diverticulosis of intestine, part unspecified, without perforation or abscess without bleeding; K59.1 Functional diarrhea; R14.0 Abdominal distension (gaseous); D36.9 Benign neoplasm, unspecified site | CPT/HCPCS: 99212 ==

== ENCOUNTER 2023-07-16 15:20 | Outpatient (AMB) | payer MEDICARE, SELFPAY ==
--- NOTE | 2023-07-16 15:24 | A.OFFVIS_ITS ---
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 He states it has a pulse of it's own Starts on the thigh and goes up into the upper thigh. 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 Complaints include pain over varicosities, swelling of lower extremities, cramping, fatigue, and heaviness of the lower extremities. 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 It is noted more so in right leg. Of note he is a smoker and diabetic Patient denies any previous venous surgery or injections. Patient denies any history of DVT/ PE. Patient denies any history of phlebitis. Trial of compression includes - [id number] They now present for vascular evaluation regarding their varicose veins. [facility] Medical History Tubular adenoma Tubular adenoma IBS (irritable bowel syndrome) Personal history of nicotine dependence Diabetes mellitus type 2, controlled Tubular adenoma of colon (~2019) GERD (gastroesophageal reflux disease) H/O benign carcinoid tumor Cough Back pain Anxiety and depression Lung nodule BPH (benign prostatic hyperplasia) Hyperthyroidism Left adrenal mass HLD (hyperlipidemia) CAD (coronary artery disease) Chest pain Obesity HTN (hypertension) COPD (chronic obstructive pulmonary disease) Surgical History History of total adrenalectomy History of colonoscopy History of lithotripsy (~2014) History of bilateral inguinal hernia repair (~2014) History of esophagogastroduodenoscopy (EGD) History of prostate surgery (~2017) History of cholecystectomy (~2019) History of cardiac cath (~2010) Family History Father Cancer Mother Lung cancer Brother Heart attack Social History Alcohol intake: never Patient Tobacco Use Status: Current everyday Tobacco user Cigarette Packs Per Day: 1.5 Cigarettes Per Day: 10 Years Smoked: 50 Substance Use Type: Marijuana Advance Directives Date on File: 02/09/20 Review of Systems Const Reports as per HPI ENT Reports no additional complaints Card Denies chest pain, Denies chest pain at rest and Denies chest pain with activity Resp Denies chest congestion and Denies cough GI Reports no additional complaints Musc Details: pain over varicosities, aching of lower extremities, swelling, cramping, heaviness and tiredness, itching Denies abnormal gait Skin/Breast Reports pruritus and Denies wounds Neuro Reports no additional complaints and Denies abnormal gait Psych Denies no additional complaints Physical Exam Const General: cooperative, healthy appearing and comfortable Orientation/consciousness: oriented to person, oriented to place and oriented to time Neck Carotids: no bruits Chest Chest palpation & inspection: normal inspection of the chest and normal palpation of entire chest wall Resp Effort & Inspection: normal respiratory effort and able to speak in complete sentences Cardio Rate: regular rate Heart sounds: S1 normal heart sound present and S2 normal heart sound present Peripheral pulses: Peripheral pulses 2+ throughout GI Inspection: Yes normal to inspection Skin Other: +2 edema, large rope-like varicosities greater than 4 mm right thigh and calf CEAP Classification C4 - skin color changes Ep - Etiology Primary As - superficial veins P - reflux General skin exam: dry skin Neuro General: oriented to person, oriented to place and oriented to time Extrem Right lower extremity: full ROM, normal capillary refill and edema Left lower extremity: full ROM, normal capillary refill and edema Psych Mental Status: mental status grossly normal Assessment & Plan Assessment & Plan (1) Varicose veins of right lower extremity with inflammation: Code(s): I83.11 - Varicose veins of right lower extremity with inflammation Plan: In short, the patient has evidence of venous insufficiency. I have discussed the pathophysiology with the patient. In addition I have provided informational material regarding venous disease to the patient. We have discussed conservative measures including compression, elevation, and exercise. I have also provided a handout regarding appropriate use of compression stockings and where to purchase good compression stockings as well. I have taken the liberty of ordering venous insufficiency testing with the patient. They will follow up with me after testing. The patient had an opportunity to ask questions regarding the treatment plan. All questions were answered. Imaging studies, laboratory studies and physical exam results were discussed and reviewed in detail. No major barriers to understanding were identified. The patient expressed understanding and agreement with the above treatment plan. The patient is aware they should contact our office by phone for worsening of the current condition or the appearance of new symptoms. Thank you for allowing me to participate in the vascular care of this patient. If you have any questions or concerns regarding the treatment for the above condition please do not hesitate to contact me. The office telephone contact is [phone]. This note is constructed using voice recognition software. While every effort has been made to ensure accuracy, sewing machine attachment tester errors may have been included. Thank you for allowing me to participate in the care of your patient. Yours sincerely, Davis Bolanos MD, FACS, R.P.V.I. Orders: Orders US venous insuf bilat 1 Week I83.11 - Varicose veins of right lower extremity with inflammation Coding Level of Care Code New Pt Level 4 (87442) Diagnoses Varicose veins of right lower extremity with inflammation I83.11
== END 2023-07-16 15:50 | disposition home or self-care (01) ==
PROVIDERS: PCP Pediatrics; Visit Provider Surgery Vascular Surgery
DX: I83.11 Varicose veins of right lower extremity with inflammation (principal)
CPT/HCPCS: 99203

== ENCOUNTER → 2023-07-16 15:20 | Outpatient (BNVA) | payer MEDICARE, OTHER, SELFPAY | PROVIDERS: PCP Pediatrics; Visit Provider Surgery Vascular Surgery | DX: I83.11 Varicose veins of right lower extremity with inflammation (principal) | CPT/HCPCS: 99202 ==

== ENCOUNTER 2023-07-28 08:04 | Outpatient (REF) | payer MEDICARE, SELFPAY ==
--- NOTE | ~2023-07-28 | CT_ITS ---
EXAMINATION: CT CHEST WITHOUT CONTRAST CLINICAL INFORMATION: Pulmonary nodule. COMPARISON: 03/16/2023 TECHNIQUE: Multidetector volumetric CT imaging of the chest was done. Axial MIP volume rendering provided. Sagittal and coronal reformatted images were obtained. This CT examination was performed using dose optimization techniques as appropriate, variously including the following: *Automated exposure control *Adjustment of mA and/or kV according to patient size (this includes techniques or standardized protocols for targeted exams where dose is matched to indication/reason for exam; i.e. extremities or head) *Use of iterative reconstruction technique DLP: 207 mGy-cm FINDINGS: LUNGS AND PLEURA: Prior wedge resections at medial right upper lobe and posterior right lower lobe. Bronchial [place] are chronically, diffusely thickened. Mild centrilobular and paraseptal emphysema. Interval development of extensive tree-in-bud nodularity in the right upper, right middle and right lower lobes. Patchy groundglass opacities are present in the right upper lobe. Interval resolution of the previously seen/described solid nodularity in the anterior right upper lobe. New patchy groundglass opacities are present in the anterior left upper lobe. The small peripheral opacity in the lateral segment right middle lobe could represent atelectasis and/or small focus of airspace disease from infectious/inflammatory process. No pleural effusion or pneumothorax. CARDIOVASCULAR: The heart size is normal. No pericardial effusion. Pulmonary arteries and thoracic aorta are normal in caliber. Mild atherosclerosis of the aorta. CORONARY ARTERY CALCIFICATION: There is atherosclerotic calcification of the left anterior descending and right coronary arteries. MEDIASTINUM AND LOWER NECK: No mediastinal mass. The esophagus is mildly distended with gas and fluid. No esophageal wall thickening. The thyroid gland is unremarkable. LYMPHATICS: At the level of the aortic arch, a paratracheal lymph node with fatty hilum is 1.4 cm in short axis dimension and has mildly enlarged compared to 03/16/2023. UPPER ABDOMEN: Status post cholecystectomy. No acute findings in the visualized portion of the upper abdomen. SKELETAL AND CHEST WALL: Status post discectomy and anterior fusion at C6-C7. Multilevel osteophyte and enthesophyte formation of the spine. No acute or suspicious osseous abnormality. CT/CT chest wo IV con IMPRESSION: * Mild pulmonary emphysema. * Interval worsening of airway inflammatory change with development of extensive tree-in-bud nodularity in the right lung. This is consistent with infectious bronchiolitis. Also, there are patchy airspace opacities in both upper lobes, consistent with pneumonitis. No pleural effusion. * A mildly enlarged lower right paratracheal lymph node of 1.4 cm short axis dimension is likely a reactive lymph node.
== END 2023-07-28 08:05 | disposition home or self-care (01) ==
LOC: HO.CT 08:04
PROVIDERS: PCP Internal Medicine; Visit Provider Hospitalist
DX: R91.1 Solitary pulmonary nodule (principal)
CPT/HCPCS: 71250

== ENCOUNTER 2023-07-29 08:25 | Outpatient (REF) | payer MEDICARE, SELFPAY ==
--- NOTE | ~2023-07-29 | US_ITS ---
EXAMINATION: US LOWER EXTREMITY VENOUS (REFLUX EXAM), BILATERAL CLINICAL INFORMATION: Chronic venous insufficiency with lower extremity of varicose veins with inflammation COMPARISON: None. TECHNIQUE: Color flow triplex imaging and compression Doppler was performed to evaluate both the deep and the superficial systems bilaterally. To evaluate the superficial system, the examination was performed in the upright position. Color-flow Doppler ultrasound and compression ultrasound were utilized. In addition, maneuvers were utilized to demonstrate reflux. FINDINGS: 1. DEEP VENOUS ULTRASOUND OF THE RIGHT LOWER EXTREMITY: Common Femoral Vein: Compressible, normal respiratory variation and augmented flow. Femoral Vein: Compressible, normal color flow and augmentation. Popliteal Vein: Compressible, normal augmentation. Deep Reflux: There is no evidence of reflux in the deep system in either the common femoral vein, superficial femoral or the popliteal vein. There is no evidence of a Ferreira's cyst. 2. SUPERFICIAL ULTRASOUND WITH DOPPLER OF RIGHT LOWER EXTREMITY: GREAT SAPHENOUS VEIN: Saphenofemoral Junction: 0.9 cm; Reflux: 0 ms Proximal Thigh: 0.7 cm; Reflux: 0 ms Mid Thigh: 0.3 cm; Reflux: 736 ms Distal Thigh: 0.3 cm; Reflux: 0 ms At Knee: 0.4 cm; Reflux: 0 ms Proximal Calf: 0.3 cm; Reflux: 2316 ms Mid Calf: 0.3 cm; Reflux: 0 ms Distal Calf: 0.3 cm; Reflux: 0 ms DUPLICATED MEDIAL GREAT SAPHENOUS VEIN: Diameter: None imaged Reflux: NA DUPLICATED LATERAL GREAT SAPHENOUS VEIN: Diameter: 0.3 cm Reflux: 1480 ms SMALL SAPHENOUS VEIN: Saphenopopliteal Junction: 0.2 cm; Reflux: 0 ms Proximal: 0.2 cm; Reflux: 0 ms Distal: 0.3 cm; Reflux: 1528 ms VEIN OF GIACOMINI: Size: NA Reflux: NA PERFORATORS: Location: None imaged Size: NA Reflux: NA VARICOSITIES: Location: Distal thigh and Proximal calf off the great saphenous vein Size: 0.3 to 0.4 cm Reflux: Ranging from 2792 ms to 2916 ms 3. DEEP VENOUS ULTRASOUND OF THE LEFT LOWER EXTREMITY: Common Femoral Vein: Compressible, normal respiratory variation and augmented flow. Femoral Vein: Compressible, normal color flow and augmentation. Popliteal Vein: Compressible, normal augmentation. Deep Reflux: There is no evidence of reflux in the deep system in either the common femoral vein, superficial femoral or the popliteal vein. There is no evidence of a Ferreira's cyst. 4. SUPERFICIAL ULTRASOUND WITH DOPPLER OF LEFT LOWER EXTREMITY: GREAT SAPHENOUS VEIN: Saphenofemoral Junction: 0.7 cm; Reflux: 0 ms Proximal Thigh: 0.6 cm; Reflux: 0 ms Mid Thigh: 0.2 cm; Reflux: 0 ms Distal Thigh: 0.2 cm; Reflux: 0 ms At Knee: 0.2 cm; Reflux: 0 ms Proximal Calf: 0.2 cm; Reflux: 2504 ms Mid Calf: 0.3 cm; Reflux: 0 ms Distal Calf: 0.4 cm; Reflux: 0 ms DUPLICATED MEDIAL GREAT SAPHENOUS VEIN: Diameter: None imaged Reflux: NA DUPLICATED LATERAL GREAT SAPHENOUS VEIN: Diameter: 0.5 cm Reflux: None SMALL SAPHENOUS VEIN: Saphenopopliteal Junction: 0.6 cm; Reflux: 0 ms Proximal: 0.3 cm; Reflux: 0 ms Distal: 0.3 cm; Reflux: 0 ms VEIN OF GIACOMINI: Size: NA Reflux: NA PERFORATORS: Location: None imaged Size: NA Reflux: NA VARICOSITIES: Location: Proximal thigh Size: 0.3 cm Reflux: None US/US venous insuf bilat IMPRESSION: Right: Segmental areas of reflux within the great saphenous vein as described above. Reflux seen in the lateral duplicated great saphenous vein in the mid thigh. Segmental area of reflux in the distal right small saphenous vein. Multiple varicose veins arising from of the great saphenous vein within the distal thigh and calf as described above. Left: Segmental areas of reflux in the left great saphenous vein in the proximal calf.
== END 2023-07-29 08:26 | disposition home or self-care (01) ==
LOC: HO.US 08:25
PROVIDERS: PCP Internal Medicine; Visit Provider Surgery Vascular Surgery
DX: Z13.89 Encounter for screening for other disorder (principal)
CPT/HCPCS: 93970

== ENCOUNTER 2023-07-30 16:20 | Inpatient (IN) | payer MEDICARE, OTHER, SELFPAY ==
[2023-07-30] VITALS (12 sets, daily range): BP systolic 125–152; BP diastolic 64–86; PULSE 65–107; RESP 15–40; TEMP 36.6–37.2; O2SAT 89–96; BMI 32.0
--- NOTE | ~2023-07-30 | FL_ITS ---
EXAMINATION: XR FLUOROSCOPY UPPER GI WITH AIR CLINICAL INFORMATION: Dysphagia COMPARISON: 04/04/2016. TECHNIQUE: Fluoroscopic air contrast upper GI examination was performed utilizing standard techniques with thin and thick barium and effervescent granules. Numerous spot images were obtained. FINDINGS: Lateral cine images of the oropharynx and hypopharynx demonstrate premature spillage with pooling in the vallecula and piriform sinuses. No laryngeal penetration, tracheal penetration, glottic or subglottic aspiration identified. No nasopharyngeal reflux present. Hypopharyngeal structures appear normal without evidence of mass or diverticulum. There was no significant cricopharyngeal achalasia. Status post anterior cervical fusion of C6-C7 with plate and screws. Bony fusion through the disc space. No complication seen. Adrenalectomy noted with several surgical clips seen left of the spine. Cholecystectomy clips present. Dual and single contrast images of the esophagus demonstrate a mildly patulous caliber. There is a granular mucosal pattern seen throughout suggestive of esophagitis. No evidence of stricture, mass, or large ulcerations identified. Esophageal peristalsis is disorganized. There is moderate to severe narrowing of the GE junction, resulting in a significant delay of contrast emptying into the stomach. No evidence of hiatus hernia identified. No significant gastroesophageal reflux was seen during the course of the examination and on reflux views. Dual contrast and single contrast images of the stomach demonstrated a normal contour. Full evaluation of the gastric mucosa was limited due to patient's inability to lie flat given the significant delay of contrast emptying from the esophagus into the stomach. No obvious mass or ulcerations are present. Rugal fold thickening is noted. Contrast freely passed into the gastric antrum and duodenal bulb without delay. Single and air-contrast images of the duodenal bulb demonstrate no abnormality. The duodenal sweep has a normal appearance, course, and mucosal fold appearance. No malrotation. The imaged proximal jejunum has a normal fold pattern and caliber. FLUOROSCOPY TIME: 4 minutes 38 seconds Number of Spot Images: 9 Number of Cine: 8 DOSE AREA PRODUCT: 3121 uGy-m2 (microgray-meter squared) FL/FL barium swallow with air IMPRESSION: 1. Premature filling of the vallecula and piriform sinuses. No laryngeal penetration or tracheal aspiration was seen. 2. Moderate severe narrowing of the GE junction resulting in a significant of contrast emptying into the stomach. Etiology includes achalasia versus a benign stricture. Achalasia is suspected given appearance. Granular mucosa within the esophagus is likely attributable to erosive esophagitis. Recommend correlation with EGD 3. Limited evaluation of the gastric mucosa due to inability to lie flat given the significant delay of contrast emptying from the esophagus into the stomach and concern for aspiration and examination. There appears to be some degree of renal fold thickening suggesting gastritis. 4. Esophageal dysmotility. 5. Surgical clips present in the left and right upper quadrants consistent with prior history of cholecystectomy and left adrenalectomy. This procedure was performed by Terrence Mercedes PA-C, and supervised by Dr. Trent
--- NOTE | ~2023-07-30 | XR_ITS ---
EXAMINATION: XR CHEST CLINICAL INFORMATION: COPD. Pneumonia. COMPARISON: Chest x-ray January 28, 2023. CT chest July 28, 2023 TECHNIQUE: Frontal portable view of the chest was obtained. 5:06 PM FINDINGS: Patchy multifocal airspace opacities similar in severity and distribution to CT chest July 28, 2023. Bronchial wall thickening of the central bronchi redemonstrated. No focal dense consolidation. Surgical suture chain at the right upper lobe in the right lung base. No pleural effusion. No pulmonary vascular congestion. Heart size is normal. Cardiac mediastinal contours are normal. Orthopedic plate and screw at lower cervical spine. XR/XR chest 1V IMPRESSION: Patchy multifocal airspace opacities similar to CT chest July 28, 2023. Postsurgical changes right lung.
[2023-07-30] MEDS: Benzonatate 100 MG CAPSULE PO (16:49)
[2023-07-30] MEDS: LORazepam 2 MG/ML VIAL 1 MG IVPUSH (16:49)
[2023-07-30] MEDS: methylPREDNISolone Sod Succ 125 MG/2 ML VIAL IVPUSH (16:49)
[2023-07-30 16:50] LABS: MANUAL DIFF FLAG NO
[2023-07-30] MEDS: Magnesium Sulfate/H2O 2 GM/50 ML PIGGYBACK IV (16:50)
[2023-07-30] MEDS: 0.9 % Sodium Chloride 1,000 ML 999 ML IVCONT (16:50)
--- NOTE | 2023-07-30 16:52 | ED_ITS ---
HPI - SOB/Dyspnea General Chief Complaint: Dyspnea Stated Complaint: sob,hx of copd Time Seen by Provider: 07/30/23 16:34 Source: patient Mode of arrival: ambulatory Limitations: no limitations History of Present Illness HPI Narrative: Patient comes to the emergency room, complaining of cough and shortness of breath. Patient states that for 5 days he has been having symptoms. Patient states he is known to have history of COPD. Patient denies fever or chills. States that he has been having coughing fits, per family he been turnes purple . Yesterday, his primary care physician/environmental designer order a CT scan which was done outpatient. Related Data Home Medications ?Medication ?Instructions ?Recorded ?Confirmed aspirin 81 mg tablet,delayed 81 mg PO BEDTIME 03/15/20 07/10/22 release atorvastatin 40 mg tablet 40 mg PO BEDTIME 03/15/20 07/10/22 fluoxetine 40 mg capsule 40 mg PO DAILY 03/15/20 07/10/22 hydroxyzine HCl 50 mg tablet 50 mg PO BEDTIME 03/15/20 07/10/22 isosorbide mononitrate 60 mg 60 mg PO QAM 03/15/20 07/10/22 tablet,extended release 24 hr lisinopril 10 1 tab PO QAM 03/15/20 07/10/22 mg-hydrochlorothiazide 12.5 mg tablet methimazole 5 mg tablet 5 mg PO QAM 03/15/20 07/10/22 tamsulosin 0.4 mg capsule 0.4 mg PO BEDTIME 03/15/20 07/10/22 gabapentin 600 mg tablet 600 mg PO TID 06/05/20 07/10/22 metformin 1,000 mg tablet 1,000 mg PO BID 12/13/20 07/10/22 nitroglycerin 0.4 mg sublingual 0.4 mg sublingual angina 12/13/20 07/10/22 tablet glipizide 5 mg tablet, extended 5 mg PO DAILY 07/10/22 07/10/22 release 24 hr calcium polycarbophil 625 mg 625 mg PO 04/07/23 tablet (Fiber (calcium polycarbophil)) sennosides 8.6 mg-docusate sodium 1 tab PO BEDTIME PRN constipation 04/07/23 50 mg tablet (Stimulant Laxative Plus) Previous Rx's ?Medication ?Instructions ?Recorded cholecalciferol (vitamin D3) 50 50 mcg PO DAILY #90 caps 07/08/22 mcg (2,000 unit) capsule albuterol sulfate 2.5 mg/3 mL 2.5 mg (3 mL) inhalation Q6H PRN 08/08/22 (0.083 %) solution for nebulization shortness of breath or wheezing 30 days #180 mL albuterol sulfate 90 mcg/actuation 2 puff inhalation Q4-6H PRN 08/29/22 aerosol inhaler shortness of breath or wheezing 30 days #1 ea nicotine (polacrilex) 4 mg gum 4 mg buccal Q1H 30 days #110 ea 08/29/22 simethicone 125 mg capsule (Gas 125 mg PO TID-QID PRN abdominal 10/07/22 Relief (simethicone)) distention #120 caps methylcellulose (laxative) 500 mg 500 mg PO BID #60 tabs 10/13/22 tablet (Citrucel) fluticasone fur. 200 mcg-umeclid 1 ea inhalation DAILY #60 ea 10/24/22 62.5 mcg-vilant 25 mcg inhalat.powder (Trelegy Ellipta) theophylline 400 mg 400 mg PO DAILY 30 days #30 tabs 02/10/23 tablet,extended release 24 hr cholestyramine-aspartame 4 gram 4 g PO QIDACHS #60 ea 04/07/23 oral powder for susp in a packet (Cholestyramine Light) famotidine 40 mg tablet 40 mg PO BEDTIME #30 tabs 04/07/23 metoprolol succinate 25 mg 25 mg PO QAM #90 tabs 05/04/23 tablet,extended release 24 hr esomeprazole magnesium 40 mg 40 mg PO DAILY #90 caps 07/07/23 capsule,delayed release (Nexium) Allergies Allergy/AdvReac Type Severity Reaction Status Date / Time Penicillins [PENICILLINS] Allergy Severe THROAT Verified 07/30/23 16:35 SWELLING penicillin V Allergy Unknown anaphylaxis Verified 07/30/23 16:35 Review of Systems 2 Review of Systems: Constitutional : No Weight loss, No Fever, No Chills, No Night Sweats, No Fatigue, No Malaise ENT/Mouth : No Hearing loss, No Ear Pain, No Nasal Congestion, No Sinus Pain, No Hoarseness, No sore throat, No Rhinorrhea, No Swallowing Difficulty Eyes: No Eye Pain, No Swelling, No Redness, No Foreign Body, No Discharge, No Vision Changes Cardiovascular : No Chest Pain, No SOB, No Dyspnea on Exertion, No Orthopnea, No Edema, No Palpitations Respiratory : Complaining of cough with sputum production, wheezing and shortness of breath Gastrointestinal : No Nausea, No Vomiting, No Diarrhea, No Constipation, No abdominal Pain, No Hematochezia, No Melena Genitourinary : no irregular bleeding, No Dysuria, No Urinary Frequency, No Hematuria, No Urinary Incontinence, No Urgency, No Flank Pain, No Urinary Flow Changes, No Hesitancy Musculoskeletal : No joint pain, No Myalgias, No Joint Swelling Skin : No Skin Lesions, No rash Neuro : No Weakness, No Numbness, No Paresthesias, No Loss of Consciousness, No Dizziness, No Headache Psych : No Anxiety/Panic, No Depression, No SI/HI/AH/VH, No Social Issues, Heme/Lymph: No Bruising, No Bleeding,No Lymphadenopathy Endocrine : No Polyuria, No Polydipsia, No Temperature Intolerance [facility] Past Medical History Medical History Tubular adenoma Tubular adenoma IBS (irritable bowel syndrome) Personal history of nicotine dependence Diabetes mellitus type 2, controlled Tubular adenoma of colon (~2019) GERD (gastroesophageal reflux disease) H/O benign carcinoid tumor Cough Back pain Anxiety and depression Lung nodule BPH (benign prostatic hyperplasia) Hyperthyroidism Left adrenal mass HLD (hyperlipidemia) CAD (coronary artery disease) Chest pain Obesity HTN (hypertension) COPD (chronic obstructive pulmonary disease) Surgical History History of total adrenalectomy History of colonoscopy History of lithotripsy (~2014) History of bilateral inguinal hernia repair (~2014) History of esophagogastroduodenoscopy (EGD) History of prostate surgery (~2017) History of cholecystectomy (~2019) History of cardiac cath (~2010) Family History Family History Father Cancer Mother Lung cancer Brother Heart attack Social History Social History Alcohol intake: never Patient Tobacco Use Status: Current everyday Tobacco user Cigarette Packs Per Day: 1.5 Cigarettes Per Day: 10 Years Smoked: 50 Smoked in Last 30 Days: Yes Use of substances other than those prescribed or required for medical reasons: No Substance Use Type: Marijuana Advance Directives: Yes Advance Directives on File: Yes Advance Directives Date on File: 02/09/20 Physical Exam 2 Vital Signs: Vital Signs: Last Vital Signs Temp 98.9 F 07/30/23 17:25 Pulse 99 07/30/23 17:25 Resp 20 07/30/23 17:25 BP 152/64 H 07/30/23 17:25 Pulse Ox 89 L 07/30/23 16:32 O2 Del Method Oxymask 07/30/23 17:25 O2 Flow Rate 2 07/30/23 17:25 BMI result Body Mass Index 32.0 Const: Other: Appearance: Alert. Oriented X3. No acute distress. Eyes: Pupils equal, round and reactive to light. ENT: Pharynx normal. Neck: Normal inspection. Neck supple. No lymph nodes noted. No crepitus CVS: Normal heart rate and rhythm. Pulses normal. Normal S1 and S2 Respiratory: tachypneic, mild bilateral wheezing, moderate air movement, oxygen saturation 88% on room air. Abdomen: Soft and nontender. No rigidity. No distention. Skin: Skin warm and dry. Normal skin color. Normal skin turgor. Extremities: No lower extremity edema. No Lacerations. No Rash Neuro: Oriented X 3. No motor deficit. No sensory deficit. Moving all extremities. No slurred speech. CN 2 through 12 grossly intact Psych: Very anxious Course Course Course Narrative: - patient is very anxious, being given Ativan 1 mg. - Oxygen saturation approximately 89-92% on room air - patient at this time receiving IV fluids, levofloxacin ( anaphylactic reaction to penicillins) - at this time, 17:06 p.m., blood pressure stable, heart rate normal, no fever, sepsis is not suspected Medications Administered Generic Name Dose Route Start Last Admin Trade Name Freq PRN Reason Stop Dose Admin Magnesium Sulfate 2 gm in 50 mls @ 25 mls/hr 07/30/23 16:43 07/30/23 16:50 Magnesium Sulfate/H2o IV 07/30/23 18:42 25 mls/hr ONCE ONE Administration Discontinued Medications Generic Name Dose Route Start Last Admin Trade Name Freq PRN Reason Stop Dose Admin Albuterol Sulfate 7.5 mg/ 10 mg 07/30/23 16:52 07/30/23 16:58 Albuterol Sulfate 2.5 mg INHALE 07/30/23 16:53 10 mg ONCE ONE Administration Benzonatate 100 mg 07/30/23 16:40 07/30/23 16:49 Benzonatate 100 Mg Capsule PO 07/30/23 16:41 100 mg ONCE ONE Administration Sodium Chloride 1,000 mls @ 999 mls/hr 07/30/23 16:41 07/30/23 16:50 Ns IVCONT 07/30/23 17:41 999 mls/hr .Q1H1M ONE Administration Lorazepam 1 mg 07/30/23 16:40 07/30/23 16:49 Lorazepam 2 Mg/Ml Vial IVPUSH 07/30/23 16:41 1 mg STAT STA Administration Methylprednisolone Sodium Succinate 125 mg 07/30/23 16:43 07/30/23 16:49 Methylprednisolone Sod Succ 125 Mg/2 Ml Vial IVPUSH 07/30/23 16:44 125 mg ONCE ONE Administration Medical Decision Making Medical Decision Making MDM Narrative: -my interpretation of chest x-ray: Bilaterally opacities, compatible with pneumonia -my interpretation of EKG: Normal sinus rhythm, heart rate 76, no ST segment depression or elevation, no T-wave inversion, QTC 438 -my interpretation of CT scan of yesterday: Bilateral opacities -my interpretation of labs: White blood cell count 12.9, hematology and chemistry within normal limits, blood gases stable, pCO2 43, chemistry within normal limits, glucose 126, lactic acid 1.8. Patient tested negative for influenza RSV and COVID -patient's vitals improved. Patient's oxygen saturation in the low 90s. However, patient is requiring oxygen. When patient coughs, he is significantly desaturates to a low 80s, needs OxyMask to recuperate up to 8 L. -I reviewed patient's outpatient imaging studies, patient also had a venous duplex ultrasound done yesterday, negative for DVT -I discussed the patient with Dr. Burnham, patient being admitted for bilateral pneumonia. Differential Diagnosis Differential Diagnoses: The differential diagnosis associated with the presentation includes (Chronic lung disease, pneumonia, influenza, COVID, RSV) Admission/Observation Consideration of admission/observation: Escalation of care including admission/observation considered Consult Healthcare Provider Management of the patient was discussed with: Hospitalist Lab Data MDM Lab Attestation statement: I reviewed the patient's lab results. 07/30/23 16:43 07/30/23 17:22 Labs: Lab Results 07/30/23 07/30/23 07/30/23 Range/Units 16:43 16:44 16:48 WBC 12.9 H (4.8-10.8) X10*3/uL RBC 5.17 (4.60-5.80) X10*6/uL Hgb 15.8 (14.0-18.0) g/dl Hct 46.1 (42.0-52.0) % MCV 89.2 (80.0-98.0) fL MCH 30.6 (27.0-33.0) pg MCHC 34.3 (31.0-36.0) g/dl RDW 12.8 (11.0-16.0) % Plt Count 190 (160-400) X10*3/uL MPV 9.9 (9.4-12.4) fL Immature Gran % (Auto) 0.4 (0.0-0.4) % Neut % (Auto) 79.3 H (45-73) % Lymph % (Auto) 12.3 L (20-40) % Nuckolls % (Auto) 7.1 (2-11) % Eos % (Auto) 0.4 (0-4) % Baso % (Auto) 0.5 (0-2) % Lymph # (Auto) 1.6 (1.2-4.9) X10*3/uL Nuckolls # (Auto) 0.9 (0.1-1.2) X10*3/uL Eos # (Auto) 0.1 (0.0-0.4) X10*3/uL Baso # (Auto) 0.1 (0.0-0.2) X10*3/uL Abs Immat Gran (auto) 0.05 H (0.00-0.03) X10*3/uL Absolute Neuts (auto) 10.2 H (2.0-8.3) x10*3/uL Absolute Nucleated RBC 0.000 (0.0-0.012) X10*3/uL Nucleated RBC % (auto) 0.0 (0.0-0.2) /100WBC VBG pH 7.45 H (7.32-7.43) VBG pCO2 43 mmHg VBG pO2 44 mmHg VBG HCO3 30 H (22-26) mmol/L VBG O2 Saturation 71.0 % VBG Base Excess 5.5 mmol/L Sodium (135-145) mmol/L Potassium (3.3-5.1) mmol/L Chloride (96-108) mmol/L Carbon Dioxide (22-29) mmol/L Anion Gap (12-20) BUN (9-16) mg/dL Creatinine (0.5-1.4) mg/dL Estim Creat Clear Calc Estimated GFR Random Glucose (60-115) mg/dL Lactic Acid 1.8 (0.5-2.0) mmol/L Calcium (8.4-10.2) mg/dL Magnesium (1.6-2.6) mg/dL Total Bilirubin (0.0-1.0) mg/dL AST (5-37) U/L ALT (0-40) U/L Alkaline Phosphatase (39-117) U/L B-Natriuretic Peptide 38 (<100) pg/mL Total Protein (6.5-8.0) g/dL Albumin (3.5-5.0) g/dL Influenza Type A (PCR) NEGATIVE (Negative) Influenza Type B (PCR) NEGATIVE (Negative) RSV RNA Qual (PCR) NEGATIVE (Negative) SARS-CoV-2 RNA (RT-PCR) NEGATIVE (Negative) 07/30/23 Range/Units 17:22 WBC (4.8-10.8) X10*3/uL RBC (4.60-5.80) X10*6/uL Hgb (14.0-18.0) g/dl Hct (42.0-52.0) % MCV (80.0-98.0) fL MCH (27.0-33.0) pg MCHC (31.0-36.0) g/dl RDW (11.0-16.0) % Plt Count (160-400) X10*3/uL MPV (9.4-12.4) fL Immature Gran % (Auto) (0.0-0.4) % Neut % (Auto) (45-73) % Lymph % (Auto) (20-40) % Nuckolls % (Auto) (2-11) % Eos % (Auto) (0-4) % Baso % (Auto) (0-2) % Lymph # (Auto) (1.2-4.9) X10*3/uL Nuckolls # (Auto) (0.1-1.2) X10*3/uL Eos # (Auto) (0.0-0.4) X10*3/uL Baso # (Auto) (0.0-0.2) X10*3/uL Abs Immat Gran (auto) (0.00-0.03) X10*3/uL Absolute Neuts (auto) (2.0-8.3) x10*3/uL Absolute Nucleated RBC (0.0-0.012) X10*3/uL Nucleated RBC % (auto) (0.0-0.2) /100WBC VBG pH (7.32-7.43) VBG pCO2 mmHg VBG pO2 mmHg VBG HCO3 (22-26) mmol/L VBG O2 Saturation % VBG Base Excess mmol/L Sodium 137 (135-145) mmol/L Potassium 4.0 (3.3-5.1) mmol/L Chloride 100 (96-108) mmol/L Carbon Dioxide 27 (22-29) mmol/L Anion Gap 14 (12-20) BUN 12 (9-16) mg/dL Creatinine 0.81 (0.5-1.4) mg/dL Estim Creat Clear Calc 93.4 Estimated GFR > 60 Random Glucose 126 H (60-115) mg/dL Lactic Acid (0.5-2.0) mmol/L Calcium 9.4 (8.4-10.2) mg/dL Magnesium 2.4 (1.6-2.6) mg/dL Total Bilirubin 0.7 (0.0-1.0) mg/dL AST 21 (5-37) U/L ALT 29 (0-40) U/L Alkaline Phosphatase 98 (39-117) U/L B-Natriuretic Peptide (<100) pg/mL Total Protein 7.6 (6.5-8.0) g/dL Albumin 3.6 (3.5-5.0) g/dL Influenza Type A (PCR) (Negative) Influenza Type B (PCR) (Negative) RSV RNA Qual (PCR) (Negative) SARS-CoV-2 RNA (RT-PCR) (Negative) Independent Interpretation I performed an independent interpretation of an: EKG, Plain X-Ray and CT Scan Radiology Impression Discussion of test interpretation with radiology: I have reviewed the radiologist's reading. Radiologist Impression: LUNGS AND PLEURA: Prior wedge resections at medial right upper lobe and posterior right lower lobe. Bronchial [place] are chronically, diffusely thickened. Mild centrilobular and paraseptal emphysema. Interval development of extensive tree-in-bud nodularity in the right upper, right middle and right lower lobes. Patchy groundglass opacities are present in the right upper lobe. Interval resolution of the previously seen/described solid nodularity in the anterior right upper lobe. New patchy groundglass opacities are present in the anterior left upper lobe. The small peripheral opacity in the lateral segment right middle lobe could represent atelectasis and/or small focus of airspace disease from infectious/inflammatory process. No pleural effusion or pneumothorax. CARDIOVASCULAR: The heart size is normal. No pericardial effusion. Pulmonary arteries and thoracic aorta are normal in caliber. Mild atherosclerosis of the aorta. CORONARY ARTERY CALCIFICATION: There is atherosclerotic calcification of the left anterior descending and right coronary arteries. MEDIASTINUM AND LOWER NECK: No mediastinal mass. The esophagus is mildly distended with gas and fluid. No esophageal wall thickening. The thyroid gland is unremarkable. LYMPHATICS: At the level of the aortic arch, a paratracheal lymph node with fatty hilum is 1.4 cm in short axis dimension and has mildly enlarged compared to 03/16/2023. UPPER ABDOMEN: Status post cholecystectomy. No acute findings in the visualized portion of the upper abdomen. SKELETAL AND CHEST WALL: Status post discectomy and anterior fusion at C6-C7. Multilevel osteophyte and enthesophyte formation of the spine. No acute or suspicious osseous abnormality. CT/CT chest wo IV con IMPRESSION: * Mild pulmonary emphysema. * Interval worsening of airway inflammatory change with development of extensive tree-in-bud nodularity in the right lung. This is consistent with infectious bronchiolitis. Also, there are patchy airspace opacities in both upper lobes, consistent with pneumonitis. No pleural effusion. * A mildly enlarged lower right paratracheal lymph node of 1.4 cm short axis dimension is likely a reactive lymph node. IMPRESSION: Right: Segmental areas of reflux within the great saphenous vein as described above. Reflux seen in the lateral duplicated great saphenous vein in the mid thigh. Segmental area of reflux in the distal right small saphenous vein. Multiple varicose veins arising from of the great saphenous vein within the distal thigh and calf as described above. Left: Segmental areas of reflux in the left great saphenous vein in the proximal calf. Patchy multifocal airspace opacities similar in severity and distribution to CT chest July 28, 2023. Bronchial wall thickening of the central bronchi redemonstrated. No focal dense consolidation. Surgical suture chain at the right upper lobe in the right lung base. No pleural effusion. No pulmonary vascular congestion. Heart size is normal. Cardiac mediastinal contours are normal. Orthopedic plate and screw at lower cervical spine. XR/XR chest 1V IMPRESSION: Patchy multifocal airspace opacities similar to CT chest July 28, 2023. Postsurgical changes right lung. Critical Care Time Critical Care Time Critical Care Time: Yes Total Critical Care Time: 75 Attestation: I have personally provided critical care time. Time includes review of lab data, radiology results, discussion with consultants, and monitoring for potential decompensation. Intervention performed as documented. Discharge Plan Discharge Clinical Impression: Multifocal pneumonia Patient Disposition: Admitted As Inpatient Prescriptions: No Action cholecalciferol (vitamin D3) 50 mcg (2,000 unit) capsule 50 mcg PO DAILY Qty: 90 3RF albuterol sulfate 2.5 mg /3 mL (0.083 %) solution for nebulization 2.5 mg inhalation Q6H PRN (Reason: shortness of breath or wheezing) 30 Days Qty: 180 0RF Citrucel 500 mg tablet 500 mg PO BID Qty: 60 4RF Trelegy Ellipta 200-62.5-25 mcg blister with device 1 ea inhalation DAILY Qty: 60 6RF metoprolol succinate 25 mg tablet extended release 24 hr 25 mg PO QAM Qty: 90 3RF gabapentin 600 mg tablet 600 mg PO TID lisinopril-hydrochlorothiazide 10-12.5 mg tablet 1 tab PO QAM isosorbide mononitrate 60 mg tablet extended release 24 hr 60 mg PO QAM aspirin 81 mg tablet,delayed release (DR/EC) 81 mg PO BEDTIME fluoxetine 40 mg capsule 40 mg PO DAILY atorvastatin 40 mg tablet 40 mg PO BEDTIME methimazole 5 mg tablet 5 mg PO QAM tamsulosin 0.4 mg capsule 0.4 mg PO BEDTIME hydroxyzine HCl 50 mg tablet 50 mg PO BEDTIME metformin 1,000 mg tablet 1,000 mg PO BID nitroglycerin 0.4 mg tablet, sublingual 0.4 mg sublingual glipizide 5 mg tablet extended release 24hr 5 mg PO DAILY albuterol sulfate 90 mcg/actuation HFA aerosol inhaler 2 puff inhalation Q4-6H PRN (Reason: shortness of breath or wheezing) 30 Days Qty: 1 6RF nicotine (polacrilex) 4 mg gum 4 mg buccal Q1H 30 Days Qty: 110 3RF theophylline 400 mg tablet extended release 24 hr 400 mg PO DAILY 30 Days Qty: 30 6RF calcium polycarbophil [Fiber (calcium polycarbophil)] 625 mg tablet 625 mg PO sennosides-docusate sodium [Stimulant Laxative Plus] 8.6-50 mg tablet 1 tab PO BEDTIME PRN (Reason: constipation) cholestyramine-aspartame [Cholestyramine Light] 4 gram powder in packet 4 g PO QIDACHS Qty: 60 4RF Rx Instructions: administer w/meal; avoid other meds within 1hr before or 4-6hr after dose famotidine 40 mg tablet 40 mg PO BEDTIME Qty: 30 3RF esomeprazole magnesium [Nexium] 40 mg capsule,delayed release(DR/EC) 40 mg PO DAILY Qty: 90 5RF simethicone [Gas Relief (simethicone)] 125 mg capsule 125 mg PO TID-QID PRN (Reason: abdominal distention) Qty: 120 2RF Print Language: Occitan
[2023-07-30 16:56] LABS: Basophils Absolute Auto 0.1 X10*3/uL (0.0-0.2); Basophils Percent Auto 0.5 % (0-2); Eosinophils Absolute Auto 0.1 X10*3/uL (0.0-0.4); Eosinophils Percent Auto 0.4 % (0-4); Hematocrit 46.1 % (42.0-52.0); Hemoglobin 15.8 g/dl (14.0-18.0); Imm Gran Abs Auto 0.05 X10*3/uL (0.00-0.03); Imm Gran Pct Auto 0.4 % (0.0-0.4); Lymphocytes Absolute Auto 1.6 X10*3/uL (1.2-4.9); Lymphocytes Percent Auto 12.3 % (20-40); Mean Corpuscular HGB Conc 34.3 g/dl (31.0-36.0); Mean Corpuscular Hemoglobin 30.6 pg (27.0-33.0); Mean Corpuscular Volume 89.2 fL (80.0-98.0); Mean Platelet Volume 9.9 fL (9.4-12.4); Monocytes Absolute Auto 0.9 X10*3/uL (0.1-1.2); Monocytes Percent Auto 7.1 % (2-11); Neutrophils Absolute Auto 10.2 x10*3/uL (2.0-8.3); Neutrophils Percent Auto 79.3 % (45-73); Platelet Count 190 X10*3/uL (160-400); Red Blood Count 5.17 X10*6/uL (4.60-5.80); Red Cell Distribution Width 12.8 % (11.0-16.0); White Blood Count 12.9 X10*3/uL (4.8-10.8)
[2023-07-30 16:58] LABS: VBG Base Excess 5.5 mmol/L; VBG HCO3 30 mmol/L (22-26); VBG pCO2 43 mmHg; VBG pH 7.45 (7.32-7.43); VBG pO2 44 mmHg
[2023-07-30] MEDS: Albuterol Sulfate 7.5 MG, Albuterol Sulfate (0.083%) 2.5 MG 10 MG INHALE (16:58)
[2023-07-30 17:02] LABS: Lactic Acid 1.8 mmol/L (0.5-2.0)
--- NOTE | 2023-07-30 17:06 | ECG_ITS ---
Test Reason : RESP DISTRESS Blood Pressure : / mmHG Vent. Rate : 076 BPM Atrial Rate : 076 BPM P-R Int : 160 ms QRS Dur : 094 ms QT Int : 390 ms P-R-T Axes : 043 -10 050 degrees QTc Int : 438 ms Normal sinus rhythm Normal ECG When compared with ECG of 01-OCT-2020 06:29, No significant change was found Referred By: Virginia Johnson Electronically Signed By:MEGA JACKSON MD
[2023-07-30 17:09] LABS: Venous Blood Gas Refer to POC result
[2023-07-30 17:12] LABS: B Type Natriuretic Peptide 38 pg/mL (<100)
[2023-07-30 17:28] LABS: Influenza A PCR NEGATIVE (Negative); Influenza B PCR NEGATIVE (Negative); Resp Syncy Virus RNA Qual PCR NEGATIVE (Negative); SARS COV2 PCR INHOUSE NEGATIVE (Negative)
[2023-07-30 17:52] LABS: Alanine Aminotransferase 29 U/L (0-40); Albumin Level 3.6 g/dL (3.5-5.0); Alkaline Phosphatase 98 U/L (39-117); Anion Gap 14 (12-20); Aspartate Amino Transferase 21 U/L (5-37); Bilirubin Total 0.7 mg/dL (0.0-1.0); Blood Urea Nitrogen 12 mg/dL (9-16); Calcium 9.4 mg/dL (8.4-10.2); Carbon Dioxide 27 mmol/L (22-29); Chloride 100 mmol/L (96-108); Creatinine Clr Calc Pharmacy 93.4; Estimated Glomerular Filt Rate > 60; Glucose Random 126 mg/dL (60-115); Magnesium 2.4 mg/dL (1.6-2.6); Sodium 137 mmol/L (135-145); Total Protein 7.6 g/dL (6.5-8.0)
[2023-07-30 18:03] LABS: Troponin-I High Sensitivity < 2.7 ng/L (<3.5-35.0)
[2023-07-30] MEDS: levoFLOXacin/D5W 750 MG/150 ML PIGGYBACK 100 MG IV (18:11)
--- NOTE | 2023-07-30 18:45 | PHA.MEDREC ---
Pharmacy Consult ? Medication Reconciliation Pharmacy has completed the medication reconciliation. Patient confirmed medications based on claim history and previous medical records. Nishant MeiD
[2023-07-30 20:03] LABS: Glucose, Whole Blood 209 mg/dL (60-115)
[2023-07-30 20:17] LABS: ABG Base Excess 1.4 mmol/L; ABG HCO3 24 mmol/L (22-26); ABG pCO2 35 mmHg (32-45); ABG pH 7.44 (7.35-7.45); ABG pO2 74 mmHg (83-108)
[2023-07-30] MEDS: Albuterol/Iprat 2.5/0.5MG 3 ML AMPUL.NEB INHALE ×2 (20:17→23:27)
[2023-07-30 20:45] LABS: Glucose, Whole Blood 215 mg/dL (60-115)
[2023-07-30 21:24] LABS: VBG Base Excess 2.1 mmol/L; VBG HCO3 25 mmol/L (22-26); VBG pCO2 37 mmHg; VBG pH 7.44 (7.32-7.43); VBG pO2 84 mmHg
[2023-07-30] MEDS: Aspirin Enteric Coated 81 MG TABLET.DR PO (21:27)
[2023-07-30] MEDS: Insulin Lispro 100 UNIT/ML 3 ML VIAL SUBCUT (21:27)
[2023-07-30 21:41] LABS: Venous Blood Gas Refer to POC result
--- NOTE | 2023-07-30 21:46 | P.HPHOSP_ITS ---
History of Present Illness Date of Service: 07/30/23 Attending physician on admission: Merle Gomez Chief Complaint: Shortness of breath Sean Hinkle is a 68 years old man with past medical history significant for COPD -noncompliant with home oxygen, type 2 diabetes mellitus on oral hypoglycemic agents, hyperthyroidism, hyperlipidemia, CAD and BPH presents to the emergency department complaining of productive cough of greenish sputum and worsening shortness of breath over the last several days. He is also wheezing and anxious. On evaluation patient was respiratory distress, speaking in short sentences and low O2 sats despite receiving supplemental oxygen via Oxymask (3L/min). He did not report chest pain. No acute gastrointestinal genitourinary symptoms reported. In the ED, he was found to have tachypnea and low O2. Is remarkable for leukocytosis of 12.9. Platelets and hemoglobin are normal. Venous gas showed metabolic alkalosis. There are no electrolyte imbalances. There has no lactic acidosis. Troponin and BNP are normal Renal function is normal. There is hyperglycemia, 215. Viral testing for COVID-19, RSV influenza is negative. CXR showed patchy multiple airspace opacity and postsurgical changes in the right lung. Chart review: Chest CT scan (July 27) - interval worsening of airway inflammatory changes with developing of extensive tree-in-bud nodularity in the right lung, consistent with infectious bronchiolitis. There are patchy airspace opacity in both upper lungs consistent with pneumonitis. ED tx: Albuterol 10 mg neb, oxycodone 5 mg magnesium 2 g IV, Solu-Medrol monitoring 5 mg IV, Levaquin 750 mg IV, Tessalon 100 mg p.o., Ativan 1 mg IV. Review of Systems 2 Review of Systems: Yes Unobtainable due to mental condition [facility] Medical History Tubular adenoma Tubular adenoma IBS (irritable bowel syndrome) Personal history of nicotine dependence Diabetes mellitus type 2, controlled Tubular adenoma of colon (~2019) GERD (gastroesophageal reflux disease) H/O benign carcinoid tumor Cough Back pain Anxiety and depression Lung nodule BPH (benign prostatic hyperplasia) Hyperthyroidism Left adrenal mass HLD (hyperlipidemia) CAD (coronary artery disease) Chest pain Obesity HTN (hypertension) COPD (chronic obstructive pulmonary disease) Family History Father Cancer Mother Lung cancer Brother Heart attack Surgical History History of total adrenalectomy History of colonoscopy History of lithotripsy (~2014) History of bilateral inguinal hernia repair (~2014) History of esophagogastroduodenoscopy (EGD) History of prostate surgery (~2017) History of cholecystectomy (~2019) History of cardiac cath (~2010) Social History Alcohol intake: never Patient Tobacco Use Status: Current everyday Tobacco user Cigarette Packs Per Day: 1.5 Cigarettes Per Day: 10 Years Smoked: 50 Smoked in Last 30 Days: Yes Use of substances other than those prescribed or required for medical reasons: No Substance Use Type: Marijuana Advance Directives: Yes Advance Directives on File: Yes Advance Directives Date on File: 02/09/20 Nutrition Risks: No Nutritional Risk Meds Allergies Allergy/AdvReac Type Severity Reaction Status Date / Time Penicillins [PENICILLINS] Allergy Severe THROAT Verified 07/30/23 16:35 SWELLING penicillin V Allergy Unknown anaphylaxis Verified 07/30/23 16:35 Active Medications: Current Medications Acetaminophen (Acetaminophen 325 Mg Tablet) 650 mg PO Q6H PRN PRN Reason: Pain, Mild (Pain Scale 1-3) Albuterol/Ipratropium (Albuterol/Iprat 2.5/0.5mg 3 Ml Ampul.Neb) 3 ml INHALE RQ4H WHILE AWAKE [facility] Aspirin (Aspirin Enteric Coated 81 Mg Tablet.Dr) 81 mg PO BEDTIME SHAHRZAD Last Admin: 07/30/23 21:27 Dose: 81 mg Atorvastatin Calcium (Atorvastatin Calcium 40 Mg Tablet) 40 mg PO BEDTIME [facility] Cholestyramine Resin (Cholestyramine (With Sugar) 4 Gm Powd.Pack) 4 gm PO DAILY [facility] Dextrose (Dextrose 50 % 25 Gm/50 Ml Syringe) 25 gm IVPUSH Q15M PRN; Protocol PRN Reason: per Hypoglycemia Standing Ord. Fluticasone/Umeclidinium/Vilanterol (Fluticasone/Umeclidinium/Vilanterol 200/62.5/25 Blst.W.Dev) 1 puff INHALE RDAILY SHAHRZAD Glucose (Glucose Gel 15 Gm Gel..Gram.) 15 gm PO Q15M PRN; Protocol PRN Reason: per Hypoglycemia Standing Ord. Heparin Sodium (Porcine) (Heparin Sodium,Porcine 5,000 Unit/Ml Vial) 5,000 unit SUBCUT Q8H [facility] Insulin Human Lispro (Insulin Lispro 100 Unit/Ml 3 Ml Vial) 0 unit SUBCUT QIDACHS [facility]; Protocol Last Admin: 07/30/23 21:27 Dose: 4 unit Isosorbide Mononitrate (Isosorbide Mononitrate 60 Mg Tab.Er.24h) 60 mg PO DAILY [facility]; Protocol Levofloxacin (Levofloxacin 500 Mg Tablet) 500 mg PO Q24H [facility] Lisinopril (Lisinopril 10 Mg Tablet) 10 mg PO DAILY [facility]; Protocol Methimazole (Methimazole 5 Mg Tablet) 5 mg PO DAILY [facility] Methylprednisolone Sodium Succinate (Methylprednisolone Sod Succ 40 Mg/Ml Vial) 40 mg IVPUSH Q8H [facility] Metoprolol Succinate (Metoprolol Succinate Er 25 Mg Tab.Er.24h) 25 mg PO DAILY [facility]; Protocol Nitroglycerin (Nitroglycerin 0.4 Mg Tab.Subl) 0.4 mg SUBLINGUAL Q5M PRN PRN Reason: angina Omeprazole (Omeprazole 20 Mg Capsule.Dr) 20 mg PO DAILY@0630 [facility] Simethicone (Simethicone 80 Mg Tab.Chew) 80 mg PO QID PRN PRN Reason: abdominal distention Sodium Chloride (0.9 % Sodium Chloride Flush 3 Ml Syringe) 3 ml IVFLUSH QSHIFT [facility] Tamsulosin HCl (Tamsulosin Hcl 0.4 Mg Capsule) 0.4 mg PO BEDTIME [facility] Home Medications ?Medication ?Instructions ?Recorded ?Confirmed ?Last Taken ?Type aspirin 81 mg tablet,delayed 81 mg PO BEDTIME 03/15/20 07/30/23 07/29/23 History release atorvastatin 40 mg tablet 40 mg PO BEDTIME 03/15/20 07/30/23 07/29/23 History fluoxetine 40 mg capsule 40 mg PO DAILY 03/15/20 07/30/23 07/30/23 History hydroxyzine HCl 50 mg tablet 50 mg PO BEDTIME 03/15/20 07/30/23 07/29/23 History isosorbide mononitrate 60 mg 60 mg PO QAM 03/15/20 07/30/23 07/30/23 History tablet,extended release 24 hr lisinopril 10 1 tab PO QAM 03/15/20 07/30/23 07/30/23 History mg-hydrochlorothiazide 12.5 mg tablet methimazole 5 mg tablet 5 mg PO QAM 03/15/20 07/30/23 07/30/23 History tamsulosin 0.4 mg capsule 0.4 mg PO BEDTIME 03/15/20 07/30/23 07/29/23 History gabapentin 600 mg tablet 600 mg PO TID 06/05/20 07/30/23 07/30/23 History metformin 1,000 mg tablet 1,000 mg PO BID 12/13/20 07/30/23 07/30/23 History nitroglycerin 0.4 mg sublingual 0.4 mg sublingual Q5M PRN angina 12/13/20 07/30/23 Unknown History tablet glipizide 5 mg tablet, extended 5 mg PO DAILY 07/10/22 07/30/23 07/30/23 History release 24 hr cholestyramine-aspartame 4 gram 4 g PO DAILY 07/30/23 07/30/23 07/30/23 History oral powder for susp in a packet (Cholestyramine Light) nicotine (polacrilex) 4 mg gum 4 mg buccal Q2H PRN Nicotine 07/30/23 07/30/23 Unknown History Cravings simethicone 125 mg capsule (Gas 125 mg PO QID PRN abdominal 07/30/23 07/30/23 Unknown History Relief (simethicone)) distention Physical Exam 2 Vital Signs and Narrative: Vital Signs: Last Vital Signs Temp 98.0 F 07/30/23 21:27 Pulse 82 07/30/23 21:27 Resp 30 H 07/30/23 21:27 BP 125/64 07/30/23 21:27 Pulse Ox 93 07/30/23 21:27 O2 Del Method High Flow Nasal C annula 07/30/23 21:27 O2 Flow Rate 3 07/30/23 18:10 BMI result Body Mass Index 32.0 Constitutional - Somnolence. Speaking in short sentences. Respiratory distress noted. Afebrile. HEENT - Pupils equally round. Normal sclerae. Dry oral mucosa. Heart - RRR. Lungs - Normal lung expansion, Normal respiratory effort. Tachypnea. Bilateral inspiratory and expiratory wheezes. Abdomen - NT / ND; +BS; No rebound or guarding Extremities - no calf tenderness bilaterally, no swelling Skin - Warm/Dry. No pallor Neurological - Somnolent. No facial droop. No gross focal weakness noted. Normal speech Psychological - Depressed affect Results Labs 07/30/23 16:43 07/30/23 17:22 Labs: Laboratory Results - last 24 hr 07/30/23 07/30/23 07/30/23 16:43 16:44 16:48 MCV 89.2 MCH 30.6 MCHC 34.3 RDW 12.8 Plt Count 190 MPV 9.9 Immature Gran % (Auto) 0.4 Neut % (Auto) 79.3 H Lymph % (Auto) 12.3 L Finney % (Auto) 7.1 Eos % (Auto) 0.4 Baso % (Auto) 0.5 Lymph # (Auto) 1.6 Finney # (Auto) 0.9 Eos # (Auto) 0.1 Baso # (Auto) 0.1 Abs Immat Gran (auto) 0.05 H Absolute Neuts (auto) 10.2 H Absolute Nucleated RBC 0.000 Nucleated RBC % (auto) 0.0 O2 Saturation ABG pH at Pt Temp ABG pCO2 at Pt Temp ABG pO2 at Pt Temp ABG HCO3 ABG Base Excess (Actual) VBG pH 7.45 H VBG pCO2 43 VBG pO2 44 VBG HCO3 30 H VBG O2 Saturation 71.0 VBG Base Excess 5.5 Anion Gap Estim Creat Clear Calc Estimated GFR POC Glucose Random Glucose Lactic Acid 1.8 Calcium Magnesium Total Bilirubin AST ALT Alkaline Phosphatase Troponin I High Sens < 2.7 B-Natriuretic Peptide 38 Total Protein Albumin Influenza Type A (PCR) NEGATIVE Influenza Type B (PCR) NEGATIVE RSV RNA Qual (PCR) NEGATIVE SARS-CoV-2 RNA (RT-PCR) NEGATIVE 07/30/23 07/30/23 07/30/23 17:22 20:00 20:09 MCV MCH MCHC RDW Plt Count MPV Immature Gran % (Auto) Neut % (Auto) Lymph % (Auto) Finney % (Auto) Eos % (Auto) Baso % (Auto) Lymph # (Auto) Finney # (Auto) Eos # (Auto) Baso # (Auto) Abs Immat Gran (auto) Absolute Neuts (auto) Absolute Nucleated RBC Nucleated RBC % (auto) O2 Saturation 94.0 ABG pH at Pt Temp 7.44 ABG pCO2 at Pt Temp 35 ABG pO2 at Pt Temp 74 L ABG HCO3 24 ABG Base Excess (Actual) 1.4 VBG pH VBG pCO2 VBG pO2 VBG HCO3 VBG O2 Saturation VBG Base Excess Anion Gap 14 Estim Creat Clear Calc 93.4 Estimated GFR > 60 POC Glucose 209 H Random Glucose 126 H Lactic Acid Calcium 9.4 Magnesium 2.4 Total Bilirubin 0.7 AST 21 ALT 29 Alkaline Phosphatase 98 Troponin I High Sens B-Natriuretic Peptide Total Protein 7.6 Albumin 3.6 Influenza Type A (PCR) Influenza Type B (PCR) RSV RNA Qual (PCR) SARS-CoV-2 RNA (RT-PCR) 07/30/23 07/30/23 20:40 21:14 MCV MCH MCHC RDW Plt Count MPV Immature Gran % (Auto) Neut % (Auto) Lymph % (Auto) Finney % (Auto) Eos % (Auto) Baso % (Auto) Lymph # (Auto) Finney # (Auto) Eos # (Auto) Baso # (Auto) Abs Immat Gran (auto) Absolute Neuts (auto) Absolute Nucleated RBC Nucleated RBC % (auto) O2 Saturation ABG pH at Pt Temp ABG pCO2 at Pt Temp ABG pO2 at Pt Temp ABG HCO3 ABG Base Excess (Actual) VBG pH 7.44 H VBG pCO2 37 VBG pO2 84 VBG HCO3 25 VBG O2 Saturation 97.0 VBG Base Excess 2.1 Anion Gap Estim Creat Clear Calc Estimated GFR POC Glucose 215 H Random Glucose Lactic Acid Calcium Magnesium Total Bilirubin AST ALT Alkaline Phosphatase Troponin I High Sens B-Natriuretic Peptide Total Protein Albumin Influenza Type A (PCR) Influenza Type B (PCR) RSV RNA Qual (PCR) SARS-CoV-2 RNA (RT-PCR) Imaging Radiologist's Impressions: Impressions Chest X-Ray 07/30/23 17:12 IMPRESSION: Patchy multifocal airspace opacities similar to CT chest July 28, 2023. Postsurgical changes right lung. Assessment and Plan (1) Multifocal pneumonia: Status: Acute (2) Hypoxic respiratory failure: Qualifiers: Chronicity: acute Qualified Code(s): J96.01 - Acute respiratory failure with hypoxia Status: Acute (3) GERD (gastroesophageal reflux disease): Qualifiers: Esophagitis presence: esophagitis presence not specified Qualified Code(s): K21.9 - Gastro-esophageal reflux disease without esophagitis Status: Acute (4) Hyperthyroidism: Status: Acute (5) Diabetes mellitus type 2, controlled: Qualifiers: Diabetes mellitus complication status: with unspecified complications D iabetes mellitus nursing home insulin use: without intermission coordinator use Qualified Code(s): E11.8 - Type 2 diabetes mellitus with unspecified complications Status: Acute (6) HLD (hyperlipidemia): Qualifiers: Hyperlipidemia type: unspecified Qualified Code(s): E78.5 - Hyperlipidemia, unspecified Status: Acute (7) HTN (hypertension): Qualifiers: Hypertension type: primary hypertension Qualified Code(s): I10 - Essential (primary) hypertension Status: Acute (8) CAD (coronary artery disease): Qualifiers: Associated angina: unspecified whether angina present Coronary Disease- Associated Artery/Lesion type: unspecified vessel or lesion type [place] vs. transplanted heart: unspecified whether [place] or transplanted heart Qualified Code(s): I25.10 - Atherosclerotic heart disease of [place] coronary artery without angina pectoris Status: Acute Plan Sean Hinkle is a 68 years old man admitted with: * Acute hypoxic respiratory failure secondary to acute exacerbation chronic obstructive pulmonary disease with associated infection bronchiolitis/pneumonitis. Admit to hospitalist service. Telemetry. Pulse oximetry. Continue supplemental oxygen to keep O2 sats > 90%. Start treatment with high-flow to help with work of breathing. Continue bronchodilator therapy, empiric IV antibiotic therapy with Levaquin and IV steroids. Continue theophylline. Check theophylline level. Avoid benzodiazepines and other sedatives (hold gabapentin). Pulmonology consult for further recommendations. * Type 2 diabetes mellitus. Hold metoprolol and glipizide. Insulin sliding scale. * Hyperthyroidism. Continue methimazole and metoprolol. Check TSH. * Hyperlipidemia. Continue statin. * CAD. Continue aspirin and statin. * GERD. Continue PPI. * BPH. Continue tamsulosin. * Essential hypertension. Continue metoprolol and lisinopril. * Depression. Continue fluoxetine. DVT prophylaxis: Heparin Code status: Full Patient will need hospitalization for at least 2 midnights for hypoxic respiratory failure treatment secondary to COPD with supplemental oxygen, IV antibiotics, bronchodilator therapy and IV steroids as well as evaluation by subspecialty. Quality Stroke Does the patient have a stroke diagnosis?: No VTE Prior VTE?: No VTE Risk Level:: Medical - moderate - high VTE Device Contraindication: Treatment Not Indicated VTE Drug Contraindication: N/A - Med Ordered
[2023-07-30 22:05] LABS: Thyroid Stimulating Hormone 0.55 uIU/mL (0.32-4.0)
[2023-07-30] MEDS: methylPREDNISolone Sod Succ 40 MG/ML VIAL IVPUSH (23:52)
[2023-07-30] MEDS: 0.9 % Sodium Chloride Flush 3 ML SYRINGE IVFLUSH (23:52)
--- NOTE | 2023-07-30 23:54 | PC.NURSE ---
pt medicated per jun. pt appears lethargic however arousable to name. axox4 speaking full clear sentences. poc 224. afebrile temp 97.9F. vss. Dr. Arnaud Gomez at bedside. to repeat VBG.
[2023-07-30 23:56] LABS: Glucose, Whole Blood 224 mg/dL (60-115)
[2023-07-31] VITALS (16 sets, daily range): BP systolic 121–168; BP diastolic 47–77; PULSE 59–79; RESP 15–37; TEMP 36–36.9; O2SAT 87–96; BMI 34.0
[2023-07-31 00:05] LABS: VBG Base Excess 0.8 mmol/L; VBG HCO3 25 mmol/L (22-26); VBG pCO2 40 mmHg; VBG pO2 104 mmHg
[2023-07-31 00:18] LABS: Venous Blood Gas Refer to POC result
--- NOTE | 2023-07-31 04:39 | PC.NURSE ---
pt sitting up in bed watching tv. pt reports feeling better and is able to take deep breaths with ease. resp even and unlabored. nsr on monitor. pt denies cp. pt speaking full clear sentences. nad. call gonzales within reach.
[2023-07-31 05:24] LABS: Hematocrit 42.4 % (42.0-52.0); Hemoglobin 14.4 g/dl (14.0-18.0); Imm Gran Abs Auto 0.06 X10*3/uL (0.00-0.03); Imm Gran Pct Auto 0.6 % (0.0-0.4); Lymphocytes Absolute Auto 0.6 X10*3/uL (1.2-4.9); Lymphocytes Percent Auto 5.3 % (20-40); MANUAL DIFF FLAG SCAN; Mean Corpuscular Volume 88.3 fL (80.0-98.0); Mean Platelet Volume 9.2 fL (9.4-12.4); Monocytes Absolute Auto 0.1 X10*3/uL (0.1-1.2); Monocytes Percent Auto 0.7 % (2-11); Neutrophils Absolute Auto 9.8 x10*3/uL (2.0-8.3); Neutrophils Percent Auto 93.4 % (45-73); Platelet Count 181 X10*3/uL (160-400); Red Cell Distribution Width 12.5 % (11.0-16.0); SCAN SMEAR FLAG 1; White Blood Count 10.5 X10*3/uL (4.8-10.8)
[2023-07-31 05:45] LABS: Alanine Aminotransferase 25 U/L (0-40); Albumin Level 3.5 g/dL (3.5-5.0); Alkaline Phosphatase 98 U/L (39-117); Anion Gap 16 (12-20); Aspartate Amino Transferase 16 U/L (5-37); Bilirubin Total 0.4 mg/dL (0.0-1.0); Blood Urea Nitrogen 16 mg/dL (9-16); Calcium 9.3 mg/dL (8.4-10.2); Carbon Dioxide 24 mmol/L (22-29); Chloride 100 mmol/L (96-108); Creatinine Clr Calc Pharmacy 94.6; Estimated Glomerular Filt Rate > 60; Glucose Random 231 mg/dL (60-115); Potassium 4.5 mmol/L (3.3-5.1); Sodium 135 mmol/L (135-145); Total Protein 7.5 g/dL (6.5-8.0)
[2023-07-31 06:00] LABS: SLIDE REVIEW VERIFIED
--- NOTE | 2023-07-31 06:18 | PC.NURSE ---
pt repositioned in bed.
[2023-07-31] MEDS: Omeprazole 20 MG CAPSULE.DR PO (06:39)
[2023-07-31 06:58] LABS: Estimated Average Glucose 126 mg/dL; Hemoglobin A1C 150.1233 umol/L
[2023-07-31 07:13] LABS: Glucose, Whole Blood 188 mg/dL (60-115)
[2023-07-31] MEDS: Insulin Lispro 100 UNIT/ML 3 ML VIAL SUBCUT ×3 (07:20→21:40)
[2023-07-31] MEDS: 0.9 % Sodium Chloride Flush 3 ML SYRINGE IVFLUSH ×3 (07:21→21:41)
[2023-07-31] MEDS: methylPREDNISolone Sod Succ 40 MG/ML VIAL IVPUSH ×3 (07:21→21:40)
[2023-07-31] MEDS: Fluticasone/Umeclidinium/Vilanterol 200/62.5/25 BLST.W.DEV 1 PUFF INHALE (07:38)
[2023-07-31] MEDS: Albuterol/Iprat 2.5/0.5MG 3 ML AMPUL.NEB INHALE ×4 (07:38→20:13)
[2023-07-31] MEDS: Metoprolol Succinate ER 25 MG TAB.ER.24H PO (07:54)
[2023-07-31] MEDS: methIMAzole 5 MG TABLET PO (07:54)
[2023-07-31] MEDS: Isosorbide Mononitrate 60 MG TAB.ER.24H PO (07:54)
[2023-07-31] MEDS: lisinopriL 10 MG TABLET PO (07:54)
[2023-07-31] MEDS: Theophylline Anhydrous ER 400 MG TAB.ER.24H PO (07:54)
[2023-07-31] MEDS: Cholestyramine (With Sugar) 4 GM POWD.PACK PO (07:55)
[2023-07-31] MEDS: FLUoxetine HCl 20 MG CAPSULE 40 MG PO (07:55)
[2023-07-31] MEDS: Heparin Sodium,Porcine 5,000 UNIT/ML VIAL 5000 UNIT SUBCUT ×2 (07:55→18:05)
--- NOTE | 2023-07-31 08:01 | PC.NURSE ---
patient remains on high flow at this time. medicated per the MAR. alert and oriented. patient linens changed on previous shift. call gonzales within reach
--- NOTE | 2023-07-31 09:08 | PM.CNPUL ---
History of Present Illness History of Present Illness Consult date: 07/31/23 Chief complaint: Hypoxemic respiratory failure Narrative: This is an inpatient pulmonary consultation. The patient is a 68 years old man with past medical history significant for COPD -noncompliant with home oxygen, type 2 diabetes mellitus on oral hypoglycemic agents, hyperthyroidism, hyperlipidemia, CAD and BPH presents to the emergency department complaining of productive cough of greenish sputum and worsening shortness of breath over the last several days. He is also wheezing and anxious. On evaluation patient was respiratory distress, speaking in short sentences and low O2 sats despite receiving supplemental oxygen via Oxymask (3L/min). On further questioning the patient has been having issues with swallow. It has been happening now for many months. Although seems like it is getting very severe. After he is feels like the food gets stuck and then sometimes will, hours later. I did review his CT scan of the chest personally. Appears that he has evidence of bronchiolitis in airspace disease. In addition to that he has a fluid-filled esophagus concerning for some degree of obstruction. The patient needs to have that addressed right now on high-flow be difficult to perform any studies. His initial evaluation for flu RSV and COVID-19 were negative. Will reassess for other respiratory pathogens. But most likely we have to be concerned about micro aspiration and aspiration pneumonitis along with bronchiolitis. Review of Systems Constitutional: Constitutional: Reports fatigue ENT: Reports system reviewed and no additional complaints, except as documented and Reports dysphagia Cardiovascular: Cardiovascular: Denies chest pain and Reports dyspnea Respiratory: Respiratory: Reports chest congestion, Reports cough, Denies hemoptysis, Reports dyspnea and Reports wheezing Gastrointestinal: Gastrointestinal: Reports dysphagia, Reports dyspepsia and Reports other (regurgitation) Musculoskeletal: Musculoskeletal: Reports no additional musculoskeletal complaints Psychiatric: Psychiatric: Reports anxiety Endocrine: Endocrine: Reports fatigue Hematologic/Lymphatic: Hematologic/Lymphatic: Denies lymphadenopathy Allergic/Immunologic: Allergic/Immunologic: Reports wheezing [facility] Past Medical History Medical History (Updated 07/31/23 @ 09:13 by Devonte Collado MD) Dysphagia Tubular adenoma Tubular adenoma IBS (irritable bowel syndrome) Personal history of nicotine dependence Diabetes mellitus type 2, controlled Tubular adenoma of colon (~2019) GERD (gastroesophageal reflux disease) H/O benign carcinoid tumor Cough Back pain Anxiety and depression Lung nodule BPH (benign prostatic hyperplasia) Hyperthyroidism Left adrenal mass HLD (hyperlipidemia) CAD (coronary artery disease) Chest pain Obesity HTN (hypertension) COPD (chronic obstructive pulmonary disease) Family History Family History Father Cancer Mother Lung cancer Brother Heart attack Surgical History Surgical History History of total adrenalectomy History of colonoscopy History of lithotripsy (~2014) History of bilateral inguinal hernia repair (~2014) History of esophagogastroduodenoscopy (EGD) History of prostate surgery (~2017) History of cholecystectomy (~2019) History of cardiac cath (~2010) Social History Social History Alcohol intake: never Patient Tobacco Use Status: Current everyday Tobacco user Cigarette Packs Per Day: 1.5 Cigarettes Per Day: 10 Years Smoked: 50 Smoked in Last 30 Days: Yes Use of substances other than those prescribed or required for medical reasons: No Substance Use Type: Marijuana Advance Directives: Yes Advance Directives on File: Yes Advance Directives Date on File: 02/09/20 Nutrition Risks: No Nutritional Risk Meds Allergies Allergy/AdvReac Type Severity Reaction Status Date / Time Penicillins [PENICILLINS] Allergy Severe THROAT Verified 07/30/23 16:35 SWELLING penicillin V Allergy Unknown anaphylaxis Verified 07/30/23 16:35 Active Medications: Current Medications Acetaminophen (Acetaminophen 325 Mg Tablet) 650 mg PO Q6H PRN PRN Reason: Pain, Mild (Pain Scale 1-3) Albuterol/Ipratropium (Albuterol/Iprat 2.5/0.5mg 3 Ml Ampul.Neb) 3 ml INHALE RQ4H WHILE AWAKE [facility] Last Admin: 07/31/23 07:38 Dose: 3 ml Aspirin (Aspirin Enteric Coated 81 Mg Tablet.Dr) 81 mg PO BEDTIME [facility] Last Admin: 07/30/23 21:27 Dose: 81 mg Atorvastatin Calcium (Atorvastatin Calcium 40 Mg Tablet) 40 mg PO BEDTIME [facility] Cholestyramine Resin (Cholestyramine (With Sugar) 4 Gm Powd.Pack) 4 gm PO DAILY [facility] Last Admin: 07/31/23 07:55 Dose: 4 gm Dextrose (Dextrose 50 % 25 Gm/50 Ml Syringe) 25 gm IVPUSH Q15M PRN; Protocol PRN Reason: per Hypoglycemia Standing Ord. Fluoxetine HCl (Fluoxetine Hcl 20 Mg Capsule) 40 mg PO DAILY [facility] Last Admin: 07/31/23 07:55 Dose: 40 mg Fluticasone/Umeclidinium/Vilanterol (Fluticasone/Umeclidinium/Vilanterol 200/62.5/25 Blst.W.Dev) 1 puff INHALE RDAILY [facility] Last Admin: 07/31/23 07:38 Dose: 1 puff Glucose (Glucose Gel 15 Gm Gel..Gram.) 15 gm PO Q15M PRN; Protocol PRN Reason: per Hypoglycemia Standing Ord. Heparin Sodium (Porcine) (Heparin Sodium,Porcine 5,000 Unit/Ml Vial) 5,000 unit SUBCUT Q8H [facility] Last Admin: 07/31/23 07:55 Dose: 5,000 unit Insulin Human Lispro (Insulin Lispro 100 Unit/Ml 3 Ml Vial) 0 unit SUBCUT QIDACHS [facility]; Protocol Last Admin: 07/31/23 07:20 Dose: 2 unit Isosorbide Mononitrate (Isosorbide Mononitrate 60 Mg Tab.Er.24h) 60 mg PO DAILY [facility]; Protocol Last Admin: 07/31/23 07:54 Dose: 60 mg Levofloxacin (Levofloxacin 750 Mg Tablet) 750 mg PO Q24H [facility] Lisinopril (Lisinopril 10 Mg Tablet) 10 mg PO DAILY [facility]; Protocol Last Admin: 07/31/23 07:54 Dose: 10 mg Methimazole (Methimazole 5 Mg Tablet) 5 mg PO DAILY [facility] Last Admin: 07/31/23 07:54 Dose: 5 mg Methylprednisolone Sodium Succinate (Methylprednisolone Sod Succ 40 Mg/Ml Vial) 40 mg IVPUSH Q8H [facility] Last Admin: 07/31/23 07:21 Dose: 40 mg Metoprolol Succinate (Metoprolol Succinate Er 25 Mg Tab.Er.24h) 25 mg PO DAILY [facility]; Protocol Last Admin: 07/31/23 07:54 Dose: 25 mg Nitroglycerin (Nitroglycerin 0.4 Mg Tab.Subl) 0.4 mg SUBLINGUAL Q5M PRN PRN Reason: angina Omeprazole (Omeprazole 20 Mg Capsule.Dr) 20 mg PO DAILY@0630 [facility] Last Admin: 07/31/23 06:39 Dose: 20 mg Simethicone (Simethicone 80 Mg Tab.Chew) 80 mg PO QID PRN PRN Reason: abdominal distention Sodium Chloride (0.9 % Sodium Chloride Flush 3 Ml Syringe) 3 ml IVFLUSH QSHIFT [facility] Last Admin: 07/31/23 07:21 Dose: 3 ml Tamsulosin HCl (Tamsulosin Hcl 0.4 Mg Capsule) 0.4 mg PO BEDTIME [facility] Theophylline (Theophylline Anhydrous Er 400 Mg Tab.Er.24h) 400 mg PO DAILY [facility] Last Admin: 07/31/23 07:54 Dose: 400 mg Home Medications ?Medication ?Instructions ?Recorded ?Confirmed ?Last Taken ?Type aspirin 81 mg tablet,delayed 81 mg PO BEDTIME 03/15/20 07/30/23 07/29/23 History release atorvastatin 40 mg tablet 40 mg PO BEDTIME 03/15/20 07/30/23 07/29/23 History fluoxetine 40 mg capsule 40 mg PO DAILY 03/15/20 07/30/23 07/30/23 History hydroxyzine HCl 50 mg tablet 50 mg PO BEDTIME 03/15/20 07/30/23 07/29/23 History isosorbide mononitrate 60 mg 60 mg PO QAM 03/15/20 07/30/23 07/30/23 History tablet,extended release 24 hr lisinopril 10 1 tab PO QAM 03/15/20 07/30/23 07/30/23 History mg-hydrochlorothiazide 12.5 mg tablet methimazole 5 mg tablet 5 mg PO QAM 03/15/20 07/30/23 07/30/23 History tamsulosin 0.4 mg capsule 0.4 mg PO BEDTIME 03/15/20 07/30/23 07/29/23 History gabapentin 600 mg tablet 600 mg PO TID 06/05/20 07/30/23 07/30/23 History metformin 1,000 mg tablet 1,000 mg PO BID 12/13/20 07/30/23 07/30/23 History nitroglycerin 0.4 mg sublingual 0.4 mg sublingual Q5M PRN angina 12/13/20 07/30/23 Unknown History tablet glipizide 5 mg tablet, extended 5 mg PO DAILY 07/10/22 07/30/23 07/30/23 History release 24 hr cholestyramine-aspartame 4 gram 4 g PO DAILY 07/30/23 07/30/2324 History oral powder for susp in a packet (Cholestyramine Light) nicotine (polacrilex) 4 mg gum 4 mg buccal Q2H PRN Nicotine 07/30/23 07/30/23 Unknown History Cravings simethicone 125 mg capsule (Gas 125 mg PO QID PRN abdominal 07/30/23 07/30/23 Unknown History Relief (simethicone)) distention Physical Exam Vital Signs: Vital Signs: Last Vital Signs Temp 97.2 F 07/31/23 08:01 Pulse 79 07/31/23 08:01 Resp 16 07/31/23 08:01 BP 168/71 H 07/31/23 08:01 Pulse Ox 94 07/31/23 08:01 O2 Del Method High Flow Nasal C annula 07/31/23 08:01 O2 Flow Rate 3 07/30/23 23:56 BMI result Body Mass Index 32.0 Const: General: cooperative and comfortable HEENT: Head: Yes normocephalic Neck: Neck: Yes supple Chest: Chest palpation & inspection: normal inspection of the chest Resp: Effort & Inspection: prolonged expiratory phase Auscultation: rhonchi, wheezes and diminished lung sounds Cardio: Heart sounds: S1 normal heart sound present and S2 normal heart sound present GI: Palpation (GI): Soft to palpation Skin: General skin exam: no rashes or lesions noted Extrem: General: Yes no clubbing, cyanosis or edema Results Laboratory Findings 07/31/23 05:04 07/31/23 05:04 Abnormal lab findings: Abnormal Labs 07/30/23 07/30/23 07/30/23 16:43 16:48 17:22 WBC 12.9 H MPV Immature Gran % (Auto) Neut % (Auto) 79.3 H Lymph % (Auto) 12.3 L Kerr % (Auto) Lymph # (Auto) Abs Immat Gran (auto) 0.05 H Absolute Neuts (auto) 10.2 H ABG pO2 at Pt Temp VBG pH 7.45 H VBG HCO3 30 H POC Glucose Random Glucose 126 H 07/30/23 07/30/23 07/30/23 20:00 20:09 20:40 WBC MPV Immature Gran % (Auto) Neut % (Auto) Lymph % (Auto) Kerr % (Auto) Lymph # (Auto) Abs Immat Gran (auto) Absolute Neuts (auto) ABG pO2 at Pt Temp 74 L VBG pH VBG HCO3 POC Glucose 209 H 215 H Random Glucose 07/30/23 07/30/23 07/31/23 21:14 23:52 05:04 WBC MPV 9.2 L Immature Gran % (Auto) 0.6 H Neut % (Auto) 93.4 H Lymph % (Auto) 5.3 L Kerr % (Auto) 0.7 L Lymph # (Auto) 0.6 L Abs Immat Gran (auto) 0.06 H Absolute Neuts (auto) 9.8 H ABG pO2 at Pt Temp VBG pH 7.44 H VBG HCO3 POC Glucose 224 H Random Glucose 231 H 07/31/23 07:09 WBC MPV Immature Gran % (Auto) Neut % (Auto) Lymph % (Auto) Kerr % (Auto) Lymph # (Auto) Abs Immat Gran (auto) Absolute Neuts (auto) ABG pO2 at Pt Temp VBG pH VBG HCO3 POC Glucose 188 H Random Glucose Assessment and Plan (1) Acute exacerbation of chronic obstructive pulmonary disease: Status: Acute (2) Hypoxic respiratory failure: Qualifiers: Chronicity: acute Qualified Code(s): J96.01 - Acute respiratory failure with hypoxia Status: Acute (3) Multifocal pneumonia: Status: Acute (4) Aspiration pneumonitis: Status: Acute (5) Dysphagia: Qualifiers: Dysphagia type: unspecified Qualified Code(s): R13.10 - Dysphagia, unspecified Status: Acute Plan switch to Zosyn for anaerobic coverage continue with solumedrol nebs q4 CPT HF to keep pox>90% Will need a GI eval: barium swallow or GI eval resp viral panel Total time managing care of this patient today: 30 minutes. Procedures Date of Service Date of Service: 07/31/23
--- NOTE | 2023-07-31 11:37 | MHC.CM.PN ---
CM met with Patient and his Daughter at bedside, in the ED and addressed IMM with him (original was given to Patient and a copy will be placed on the chart). Patient lives in an apartment with his Ex-/HCP/Beckie and he has both a cane and a walker. Patient may benefit from a PT Eval to assist with disposition; CM has initiated and will follow for dc planning. PCP is Dr. Gonzales Brennan.
--- NOTE | 2023-07-31 12:00 | PC.NURSE ---
family at bedside at this time, patient able to speak in full clear sentences while on high flow. requesting medication for cough.
--- NOTE | 2023-07-31 12:27 | P.PNIM_ITS ---
Subjective Subjective Date of Service: 07/31/23 Interval History: seen and examined this morning follow up for respiratory failure Still appears short of breath but reports his breathing is better today Ongoing productive cough Review of Systems Review of Systems: Yes all other systems are reviewed and are negative Constitutional Constitutional: Denies chills and Denies fever(s) Cardiovascular Cardiovascular: Denies chest pain, Denies palpitations and Reports dyspnea Respiratory Respiratory: Reports cough and Reports dyspnea Gastrointestinal Gastrointestinal: Denies abdominal pain Endocrine Endocrine: Denies palpitations Physical Exam 2 Vital Signs: Vital Signs: Last Vital Signs Temp 97.2 F 07/31/23 08:01 Pulse 73 07/31/23 11:15 Resp 16 07/31/23 11:15 BP 168/71 H 07/31/23 08:01 Pulse Ox 94 07/31/23 08:01 O2 Del Method High Flow Nasal C annula 07/31/23 08:01 O2 Flow Rate 3 07/30/23 23:56 BMI result Body Mass Index 32.0 Const: General: alert, awake and ill appearing Nutritional Appearance: o verweight Orientation/consciousness: patient oriented x3 Resp: Other: b/l rhonchi, wheezing; initially appears comfortable, showed increased work of breathing after talking for few minutes Cardio: Rate: regular rate GI: Inspection: No distended Palpation (GI): Soft to palpation and nontender Neuro: General: patient oriented x3, moves all extremities and CN's II-XI intact bilaterally Extrem: General: Yes no pedal edema Objective Data Active Medications Acetaminophen (Acetaminophen 325 Mg Tablet) 650 mg PO Q6H PRN PRN Reason: Pain, Mild (Pain Scale 1-3) Albuterol/Ipratropium (Albuterol/Iprat 2.5/0.5mg 3 Ml Ampul.Neb) 3 ml INHALE RQ4H WHILE AWAKE [facility] Last Admin: 07/31/23 11:13 Dose: 3 ml Documented By: RJ Aspirin (Aspirin Enteric Coated 81 Mg Tablet.) 81 mg PO BEDTIME [facility] Last Admin: 07/30/23 21:27 Dose: 81 mg Documented By: MODESTO Atorvastatin Calcium (Atorvastatin Calcium 40 Mg Tablet) 40 mg PO BEDTIME [facility] Benzonatate (Benzonatate 100 Mg Capsule) 100 mg PO TID PRN PRN Reason: Cough Cholestyramine Resin (Cholestyramine (With Sugar) 4 Gm Powd.Pack) 4 gm PO DAILY [facility] Last Admin: 07/31/23 07:55 Dose: 4 gm Documented By: JERO Fluoxetine HCl (Fluoxetine Hcl 20 Mg Capsule) 40 mg PO DAILY [facility] Last Admin: 07/31/23 07:55 Dose: 40 mg Documented By: JERO Fluticasone/Umeclidinium/Vilanterol (Fluticasone/Umeclidinium/Vilanterol 200/62.5/25 Blst.W.Dev) 1 puff INHALE RDAILY [facility] Last Admin: 07/31/23 07:38 Dose: 1 puff Documented By: RJ Glucose (Glucose Gel 15 Gm Gel..Gram.) 15 gm PO Q15M PRN; Protocol PRN Reason: per Hypoglycemia Standing Ord. Heparin Sodium (Porcine) (Heparin Sodium,Porcine 5,000 Unit/Ml Vial) 5,000 unit SUBCUT Q8H [facility] Last Admin: 07/31/23 07:55 Dose: 5,000 unit Documented By: JERO Dextrose (D10) 250 mls @ 750 mls/hr IV Q15M PRN PRN Reason: per Hypoglycemia Standing Ord. Insulin Human Lispro (Insulin Lispro 100 Unit/Ml 3 Ml Vial) 0 unit SUBCUT QIDACHS [facility]; Protocol Last Admin: 07/31/23 07:20 Dose: 2 unit Documented By: JERO Isosorbide Mononitrate (Isosorbide Mononitrate 60 Mg Tab.Er.24h) 60 mg PO DAILY [facility]; Protocol Last Admin: 07/31/23 07:54 Dose: 60 mg Documented By: JERO Levofloxacin (Levofloxacin 750 Mg Tablet) 750 mg PO Q24H [facility] Lisinopril (Lisinopril 10 Mg Tablet) 10 mg PO DAILY [facility]; Protocol Last Admin: 07/31/23 07:54 Dose: 10 mg Documented By: JERO Methimazole (Methimazole 5 Mg Tablet) 5 mg PO DAILY [facility] Last Admin: 07/31/23 07:54 Dose: 5 mg Documented By: JERO Methylprednisolone Sodium Succinate (Methylprednisolone Sod Succ 40 Mg/Ml Vial) 40 mg IVPUSH Q8H [facility] Last Admin: 07/31/23 07:21 Dose: 40 mg Documented By: JERO Metoprolol Succinate (Metoprolol Succinate Er 25 Mg Tab.Er.24h) 25 mg PO DAILY [facility]; Protocol Last Admin: 07/31/23 07:54 Dose: 25 mg Documented By: JERO Nitroglycerin (Nitroglycerin 0.4 Mg Tab.Subl) 0.4 mg SUBLINGUAL Q5M PRN PRN Reason: angina Omeprazole (Omeprazole 20 Mg Capsule.Dr) 20 mg PO DAILY@0630 [facility] Last Admin: 07/31/23 06:39 Dose: 20 mg Documented By: KATJA Simethicone (Simethicone 80 Mg Tab.Chew) 80 mg PO QID PRN PRN Reason: abdominal distention Sodium Chloride (0.9 % Sodium Chloride Flush 3 Ml Syringe) 3 ml IVFLUSH QSHIFT [facility] Last Admin: 07/31/23 07:21 Dose: 3 ml Documented By: JERO Tamsulosin HCl (Tamsulosin Hcl 0.4 Mg Capsule) 0.4 mg PO BEDTIME [facility] Theophylline (Theophylline Anhydrous Er 400 Mg Tab.Er.24h) 400 mg PO DAILY [facility] Last Admin: 07/31/23 07:54 Dose: 400 mg Documented By: JERO Labs 07/31/23 05:04 07/31/23 05:04 Labs: Laboratory Results - last 24 hr 07/30/23 07/30/23 07/30/23 16:43 16:44 16:48 MCV 89.2 MCH 30.6 MCHC 34.3 RDW 12.8 Plt Count 190 MPV 9.9 Immature Gran % (Auto) 0.4 Neut % (Auto) 79.3 H Lymph % (Auto) 12.3 L [place] % (Auto) 7.1 Eos % (Auto) 0.4 Baso % (Auto) 0.5 Lymph # (Auto) 1.6 [place] # (Auto) 0.9 Eos # (Auto) 0.1 Baso # (Auto) 0.1 Abs Immat Gran (auto) 0.05 H Absolute Neuts (auto) 10.2 H Absolute Nucleated RBC 0.000 Nucleated RBC % (auto) 0.0 Smear Tech's Comments O2 Saturation ABG pH at Pt Temp ABG pCO2 at Pt Temp ABG pO2 at Pt Temp ABG HCO3 ABG Base Excess (Actual) VBG pH 7.45 H VBG pCO2 43 VBG pO2 44 VBG HCO3 30 H VBG O2 Saturation 71.0 VBG Base Excess 5.5 Anion Gap Estim Creat Clear Calc Estimated GFR POC Glucose Random Glucose Estimat Average Glucose Hemoglobin A1c % Lactic Acid 1.8 Calcium Magnesium Total Bilirubin AST ALT Alkaline Phosphatase Troponin I High Sens < 2.7 B-Natriuretic Peptide 38 Total Protein Albumin TSH Influenza Type A (PCR) NEGATIVE Influenza Type B (PCR) NEGATIVE RSV RNA Qual (PCR) NEGATIVE SARS-CoV-2 RNA (RT-PCR) NEGATIVE 07/30/23 07/30/23 07/30/23 17:22 20:00 20:09 MCV MCH MCHC RDW Plt Count MPV Immature Gran % (Auto) Neut % (Auto) Lymph % (Auto) [place] % (Auto) Eos % (Auto) Baso % (Auto) Lymph # (Auto) [place] # (Auto) Eos # (Auto) Baso # (Auto) Abs Immat Gran (auto) Absolute Neuts (auto) Absolute Nucleated RBC Nucleated RBC % (auto) Smear Tech's Comments O2 Saturation 94.0 ABG pH at Pt Temp 7.44 ABG pCO2 at Pt Temp 35 ABG pO2 at Pt Temp 74 L ABG HCO3 24 ABG Base Excess (Actual) 1.4 VBG pH VBG pCO2 VBG pO2 VBG HCO3 VBG O2 Saturation VBG Base Excess Anion Gap 14 Estim Creat Clear Calc 93.4 Estimated GFR > 60 POC Glucose 209 H Random Glucose 126 H Estimat Average Glucose Hemoglobin A1c % Lactic Acid Calcium 9.4 Magnesium 2.4 Total Bilirubin 0.7 AST 21 ALT 29 Alkaline Phosphatase 98 Troponin I High Sens B-Natriuretic Peptide Total Protein 7.6 Albumin 3.6 TSH 0.55 Influenza Type A (PCR) Influenza Type B (PCR) RSV RNA Qual (PCR) SARS-CoV-2 RNA (RT-PCR) 07/30/23 07/30/23 07/30/23 20:40 21:14 23:52 MCV MCH MCHC RDW Plt Count MPV Immature Gran % (Auto) Neut % (Auto) Lymph % (Auto) [place] % (Auto) Eos % (Auto) Baso % (Auto) Lymph # (Auto) [place] # (Auto) Eos # (Auto) Baso # (Auto) Abs Immat Gran (auto) Absolute Neuts (auto) Absolute Nucleated RBC Nucleated RBC % (auto) Smear Tech's Comments O2 Saturation ABG pH at Pt Temp ABG pCO2 at Pt Temp ABG pO2 at Pt Temp ABG HCO3 ABG Base Excess (Actual) VBG pH 7.44 H VBG pCO2 37 VBG pO2 84 VBG HCO3 25 VBG O2 Saturation 97.0 VBG Base Excess 2.1 Anion Gap Estim Creat Clear Calc Estimated GFR POC Glucose 215 H 224 H Random Glucose Estimat Average Glucose Hemoglobin A1c % Lactic Acid Calcium Magnesium Total Bilirubin AST ALT Alkaline Phosphatase Troponin I High Sens B-Natriuretic Peptide Total Protein Albumin TSH Influenza Type A (PCR) Influenza Type B (PCR) RSV RNA Qual (PCR) SARS-CoV-2 RNA (RT-PCR) 07/30/23 07/31/23 07/31/23 23:58 05:04 07:09 MCV 88.3 MCH 30.0 MCHC 34.0 RDW 12.5 Plt Count 181 MPV 9.2 L Immature Gran % (Auto) 0.6 H Neut % (Auto) 93.4 H Lymph % (Auto) 5.3 L [place] % (Auto) 0.7 L Eos % (Auto) 0.0 Baso % (Auto) 0.0 Lymph # (Auto) 0.6 L [place] # (Auto) 0.1 Eos # (Auto) 0.0 Baso # (Auto) 0.0 Abs Immat Gran (auto) 0.06 H Absolute Neuts (auto) 9.8 H Absolute Nucleated RBC 0.000 Nucleated RBC % (auto) 0.0 Smear Tech's Comments VERIFIED O2 Saturation ABG pH at Pt Temp ABG pCO2 at Pt Temp ABG pO2 at Pt Temp ABG HCO3 ABG Base Excess (Actual) VBG pH 7.40 VBG pCO2 40 VBG pO2 104 VBG HCO3 25 VBG O2 Saturation 99.0 VBG Base Excess 0.8 Anion Gap 16 Estim Creat Clear Calc 94.6 Estimated GFR > 60 POC Glucose 188 H Random Glucose 231 H Estimat Average Glucose 126 Hemoglobin A1c % 6.0 Lactic Acid Calcium 9.3 Magnesium 2.0 Total Bilirubin 0.4 AST 16 ALT 25 Alkaline Phosphatase 98 Troponin I High Sens B-Natriuretic Peptide Total Protein 7.5 Albumin 3.5 TSH Influenza Type A (PCR) Influenza Type B (PCR) RSV RNA Qual (PCR) SARS-CoV-2 RNA (RT-PCR) Assessment and Plan (1) Aspiration pneumonitis: Status: Acute (2) Acute exacerbation of chronic obstructive pulmonary disease: Status: Acute (3) Hypoxic respiratory failure: Status: Acute Plan This is a 68 year old male with history of COPD, diabetes, pulmonary nodules, coronary artery disease hypertension, hyperlipidemia, hypothyroidism who presents to the emergency department with shortness of breath felt to be hypoxic and requiring high-flow supplemental oxygen Acute hypoxic respiratory failure secondary to acute exacerbation chronic obstructive pulmonary disease with associated infection bronchiolitis/pneumonitis. Concern for possible microaspiration, will add clindamycin Continue high-flow supplemental oxygen and wean as tolerated Continue bronchodilator therapy, IV steroids Continue theophylline. Check theophylline level. Avoid benzodiazepines and other sedatives (hold gabapentin). seen by Pulmonology consult for further recommendations. Consider barium swallow when off high-flow Type 2 diabetes mellitus. Hold metoprolol and glipizide. Insulin sliding scale. Hyperthyroidism. Continue methimazole and metoprolol. Check TSH. Hyperlipidemia. Continue statin. CAD. Continue aspirin, statin, BB, imdur GERD. Continue PPI. BPH. Continue tamsulosin. Essential hypertension. Continue metoprolol and lisinopril. Depression. Continue fluoxetine. DVT prophylaxis: Heparin Code status: Full needs ongoing hospitalization for hypoxic respiratory failure treatment secondary to COPD with supplemental oxygen, IV antibiotics, bronchodilator therapy and IV steroids as well as evaluation by subspecialty and currently on high-flow oxygen requiring close monitoring of respiratory status Quality Stroke Does the patient have a stroke diagnosis?: No VTE Prior VTE?: No VTE Risk Level:: Medical - moderate - high VTE Device Contraindication: Treatment Not Indicated VTE Drug Contraindication: N/A - Med Ordered
[2023-07-31 13:06] LABS: Glucose, Whole Blood 222 mg/dL (60-115)
[2023-07-31] MEDS: Clindamycin Phosphate/D5W 300 MG/50 ML PIGGYBACK 100 MG IV ×2 (15:29→21:40)
[2023-07-31] MEDS: levoFLOXacin 750 MG TABLET PO (18:05)
[2023-07-31 20:24] LABS: Glucose, Whole Blood 270 mg/dL (60-115)
[2023-07-31] MEDS: Aspirin Enteric Coated 81 MG TABLET.DR PO (21:39)
[2023-07-31] MEDS: Atorvastatin Calcium 40 MG TABLET PO (21:39)
[2023-07-31] MEDS: Tamsulosin HCL 0.4 MG CAPSULE PO (21:40)
[2023-08-01] VITALS (15 sets, daily range): BP systolic 130–162; BP diastolic 63–87; PULSE 64–89; RESP 18–20; TEMP 36.1–36.9; O2SAT 88–96
[2023-08-01] MEDS: Heparin Sodium,Porcine 5,000 UNIT/ML VIAL 5000 UNIT SUBCUT ×3 (03:05→16:41)
[2023-08-01] MEDS: Omeprazole 20 MG CAPSULE.DR PO (05:44)
[2023-08-01] MEDS: methylPREDNISolone Sod Succ 40 MG/ML VIAL IVPUSH ×3 (05:44→23:31)
[2023-08-01] MEDS: Clindamycin Phosphate/D5W 300 MG/50 ML PIGGYBACK 100 MG IV ×3 (05:44→21:07)
[2023-08-01 07:08] LABS: Glucose, Whole Blood 186 mg/dL (60-115)
[2023-08-01] MEDS: Albuterol/Iprat 2.5/0.5MG 3 ML AMPUL.NEB INHALE ×4 (07:49→19:57)
[2023-08-01] MEDS: Insulin Lispro 100 UNIT/ML 3 ML VIAL SUBCUT ×4 (07:54→21:07)
[2023-08-01] MEDS: Isosorbide Mononitrate 60 MG TAB.ER.24H PO (07:55)
[2023-08-01] MEDS: FLUoxetine HCl 20 MG CAPSULE 40 MG PO (07:55)
[2023-08-01] MEDS: guaiFENesin DM 600/30 1 TAB TAB.ER.12H 2 TAB PO ×2 (07:55→21:08)
[2023-08-01] MEDS: lisinopriL 10 MG TABLET PO (07:55)
[2023-08-01] MEDS: Metoprolol Succinate ER 25 MG TAB.ER.24H PO (07:55)
[2023-08-01] MEDS: Theophylline Anhydrous ER 400 MG TAB.ER.24H PO (07:55)
[2023-08-01] MEDS: methIMAzole 5 MG TABLET PO (07:56)
[2023-08-01] MEDS: Cholestyramine (With Sugar) 4 GM POWD.PACK PO (07:56)
[2023-08-01] MEDS: 0.9 % Sodium Chloride Flush 3 ML SYRINGE IVFLUSH ×3 (07:56→21:09)
[2023-08-01] MEDS: Fluticasone/Umeclidinium/Vilanterol 200/62.5/25 BLST.W.DEV 1 PUFF INHALE (08:18)
[2023-08-01 08:56] LABS: Adenovirus PCR Not Detected (Not Detect.); Bordetella parapertussis PCR Not Detected (Not Detect.); Bordetella pertussis PCR Not Detected (Not Detect.); Chlamydia pneumoniae PCR Not Detected (Not Detect.); Coronavirus 229E PCR Not Detected (Not Detect.); Coronavirus HKU1 PCR Not Detected (Not Detect.); Coronavirus NL63 PCR Not Detected (Not Detect.); Coronavirus OC43 PCR Not Detected (Not Detect.); Human metapneumovirus PCR Not Detected (Not Detect.); Influenza A PCR Not Detected (Not Detect.); Influenza B PCR Not Detected (Not Detect.); Mycoplasma pneumoniae PCR Not Detected (Not Detect.); Parainfluenza 1 PCR Not Detected (Not Detect.); Parainfluenza 2 PCR Not Detected (Not Detect.); Parainfluenza 3 PCR Not Detected (Not Detect.); Parainfluenza 4 PCR Not Detected (Not Detect.); RSV PCR Not Detected (Not Detect.); Rhino/Enterovirus PCR Detected (Not Detect.); SARS-CoV-2 PCR Not Detected (Not Detect.)
[2023-08-01 10:57] LABS: Glucose, Whole Blood 289 mg/dL (60-115)
--- NOTE | 2023-08-01 13:44 | HO.PM.IMPN ---
Subjective Subjective Date of Service: 08/01/23 Interval History: Seen and examined this morning Follow-up for respiratory failure No overnight events coughed up several large strings of mucus and feels somewhat better Review of Systems Review of Systems: Yes all other systems are reviewed and are negative Constitutional Constitutional: Denies chills and Denies fever(s) Cardiovascular Cardiovascular: Denies chest pain, Denies palpitations and Reports dyspnea Respiratory Respiratory: Reports cough and Reports dyspnea Gastrointestinal Gastrointestinal: Denies abdominal pain Endocrine Endocrine: Denies palpitations Physical Exam Vital Signs: Vital Signs: Last Vital Signs Temp 98.4 F 08/01/23 11:13 Pulse 70 08/01/23 12:03 Resp 20 08/01/23 12:04 BP 135/69 08/01/23 11:13 Pulse Ox 94 08/01/23 11:13 O2 Del Method High Flow Nasal C annula 08/01/23 11:13 O2 Flow Rate 40 08/01/23 11:13 FiO2 35 08/01/23 11:13 BMI result Body Mass Index 34.0 Const: General: alert, awake and ill appearing Nutritional Appearance: overweight Orientation/consciousness: patient oriented x3 Resp: Other: b/l rhonchi, wheezing Effort & Inspection: normal respiratory effort, able to speak in complete sentences, no respiratory distress and no use of accessory muscles Cardio: Rate: regular rate GI: Inspection: No distended Palpation (GI): Soft to palpation and nontender Neuro: General: patient oriented x3, moves all extremities and CN's II-XI intact bilaterally Extrem: General: Yes no pedal edema Objective Data Active Medications Acetaminophen (Acetaminophen 325 Mg Tablet) 650 mg PO Q6H PRN PRN Reason: Pain, Mild (Pain Scale 1-3) Albuterol/Ipratropium (Albuterol/Iprat 2.5/0.5mg 3 Ml Ampul.Neb) 3 ml INHALE RQ4H WHILE AWAKE [facility] Last Admin: 08/01/23 11:14 Dose: 3 ml Documented By: RACHID Aspirin (Aspirin Enteric Coated 81 Mg Tablet.) 81 mg PO BEDTIME [facility] Last Admin: 07/31/23 21:39 Dose: 81 mg Documented By: LEAH Atorvastatin Calcium (Atorvastatin Calcium 40 Mg Tablet) 40 mg PO BEDTIME [facility] Last Admin: 07/31/23 21:39 Dose: 40 mg Documented By: LEAH Benzonatate (Benzonatate 100 Mg Capsule) 100 mg PO TID PRN PRN Reason: Cough Cholestyramine Resin (Cholestyramine (With Sugar) 4 Gm Powd.Pack) 4 gm PO DAILY [facility] Last Admin: 08/01/23 07:56 Dose: 4 gm Documented By: MARION Fluoxetine HCl (Fluoxetine Hcl 20 Mg Capsule) 40 mg PO DAILY [facility] Last Admin: 08/01/23 07:55 Dose: 40 mg Documented By: MARION Fluticasone/Umeclidinium/Vilanterol (Fluticasone/Umeclidinium/Vilanterol 200/62.5/25 Blst.W.Dev) 1 puff INHALE RDAILY [facility] Last Admin: 08/01/23 08:18 Dose: 1 puff Documented By: RACHID Glucose (Glucose Gel 15 Gm Gel..Gram.) 15 gm PO Q15M PRN; Protocol PRN Reason: per Hypoglycemia Standing Ord. Guaifenesin/Dextromethorphan (Guaifenesin Dm 600/30 1 Tab Tab.Er.12h) 2 tab PO BID [facility] Last Admin: 08/01/23 07:55 Dose: 2 tab Documented By: MARION Heparin Sodium (Porcine) (Heparin Sodium,Porcine 5,000 Unit/Ml Vial) 5,000 unit SUBCUT Q8H [facility] Last Admin: 08/01/23 07:54 Dose: 5,000 unit Documented By: MARION Dextrose (D10) 250 mls @ 750 mls/hr IV Q15M PRN PRN Reason: per Hypoglycemia Standing Ord. Clindamycin Phosphate (Cleocin) 300 mg in 50 mls @ 100 mls/hr IV Q8H [facility] Last Infusion: 08/01/23 12:24 Dose: Infused Documented By: MARION Insulin Human Lispro (Insulin Lispro 100 Unit/Ml 3 Ml Vial) 0 unit SUBCUT QIDACHS [facility]; Protocol Last Admin: 08/01/23 11:54 Dose: 6 unit Documented By: MARION Isosorbide Mononitrate (Isosorbide Mononitrate 60 Mg Tab.Er.24h) 60 mg PO DAILY [facility]; Protocol Last Admin: 08/01/23 07:55 Dose: 60 mg Documented By: MARION Levofloxacin (Levofloxacin 750 Mg Tablet) 750 mg PO Q24H [facility] Last Admin: 07/31/23 18:05 Dose: 750 mg Documented By: JERO Lisinopril (Lisinopril 10 Mg Tablet) 10 mg PO DAILY [facility]; Protocol Last Admin: 08/01/23 07:55 Dose: 10 mg Documented By: MARION Methimazole (Methimazole 5 Mg Tablet) 5 mg PO DAILY [facility] Last Admin: 08/01/23 07:56 Dose: 5 mg Documented By: MARION Methylprednisolone Sodium Succinate (Methylprednisolone Sod Succ 40 Mg/Ml Vial) 40 mg IVPUSH Q8H [facility] Last Admin: 08/01/23 05:44 Dose: 40 mg Documented By: LEAH Metoprolol Succinate (Metoprolol Succinate Er 25 Mg Tab.Er.24h) 25 mg PO DAILY [facility]; Protocol Last Admin: 08/01/23 07:55 Dose: 25 mg Documented By: MARION Nitroglycerin (Nitroglycerin 0.4 Mg Tab.Subl) 0.4 mg SUBLINGUAL Q5M PRN PRN Reason: angina Omeprazole (Omeprazole 20 Mg Capsule.Dr) 20 mg PO DAILY@0630 [facility] Last Admin: 08/01/23 05:44 Dose: 20 mg Documented By: LEAH Simethicone (Simethicone 80 Mg Tab.Chew) 80 mg PO QID PRN PRN Reason: abdominal distention Sodium Chloride (0.9 % Sodium Chloride Flush 3 Ml Syringe) 3 ml IVFLUSH QSHIFT [facility] Last Admin: 08/01/23 07:56 Dose: 3 ml Documented By: MARION Tamsulosin HCl (Tamsulosin Hcl 0.4 Mg Capsule) 0.4 mg PO BEDTIME [facility] Last Admin: 07/31/23 21:40 Dose: 0.4 mg Documented By: LEAH Theophylline (Theophylline Anhydrous Er 400 Mg Tab.Er.24h) 400 mg PO DAILY [facility] Last Admin: 08/01/23 07:55 Dose: 400 mg Documented By: MARION Labs 07/31/23 05:04 07/31/23 05:04 Labs: Laboratory Results - last 24 hr 07/31/23 08/01/23 08/01/23 20:21 06:58 07:00 POC Glucose 270 H 186 H Respiratory Panel [facility] See Note Adenovirus (Rapid PCR) Not Detected B.pert (TEM-PCR) Not Detected B.parapertussis DNA PCR Not Detected C. pneumoniae DNA (PCR) Not Detected Coronavirus OC43 (PCR) Not Detected Coronavirus HKU1 (PCR) Not Detected Coronavirus 229E (PCR) Not Detected Coronavirus NL63 (PCR) Not Detected Human Metapneumovir PCR Not Detected Influenza A (RT-PCR) Not Detected Influenza B (RT-PCR) Not Detected M. pneumoniae (PCR) Not Detected Parainfluenza 1 (PCR) Not Detected Parainfluenza 2 (PCR) Not Detected Parainfluenza 3 (PCR) Not Detected Parainfluenza 4 (PCR) Not Detected RSV (PCR) Not Detected Entero/Rhino (PCR) Detected A SARS-CoV-2 RNA (RT-PCR) Not Detected 08/01/23 10:53 POC Glucose 289 H Respiratory Panel [facility] Adenovirus (Rapid PCR) B.pert (TEM-PCR) B.parapertussis DNA PCR C. pneumoniae DNA (PCR) Coronavirus OC43 (PCR) Coronavirus HKU1 (PCR) Coronavirus 229E (PCR) Coronavirus NL63 (PCR) Human Metapneumovir PCR Influenza A (RT-PCR) Influenza B (RT-PCR) M. pneumoniae (PCR) Parainfluenza 1 (PCR) Parainfluenza 2 (PCR) Parainfluenza 3 (PCR) Parainfluenza 4 (PCR) RSV (PCR) Entero/Rhino (PCR) SARS-CoV-2 RNA (RT-PCR) Microbiology Microbiology Results: Microbiology 07/30/23 16:44 Blood Culture - Preliminary Blood - Venous No growth after 24 hours. 07/30/23 16:43 Blood Culture - Preliminary Blood - Venous No growth after 24 hours. Assessment and Plan (1) Aspiration pneumonitis: Status: Acute (2) Hypoxic respiratory failure: Status: Acute (3) Rhinovirus: Status: Acute Plan This is a 68 year old male with history of COPD, diabetes, pulmonary nodules, coronary artery disease hypertension, hyperlipidemia, hypothyroidism who presents to the emergency department with shortness of breath felt to be hypoxic and requiring high-flow supplemental oxygen Acute hypoxic respiratory failure secondary to acute exacerbation chronic obstructive pulmonary disease with associated infection bronchiolitis/pneumonitis and rhinovirus Concern for possible microaspiration, will add clindamycin; continue levaquin RPP + for rhinovirus Continue high-flow supplemental oxygen and wean as tolerated Continue bronchodilator therapy, IV steroids Continue theophylline. Check theophylline level. Avoid benzodiazepines and other sedatives (hold gabapentin). pulmonology following Consider barium swallow when off high-flow Type 2 diabetes mellitus. Hold metoprolol and glipizide. Insulin sliding scale. Hyperthyroidism. Continue methimazole and metoprolol TSH ok Hyperlipidemia. Continue statin. CAD. Continue aspirin, statin, BB, imdur GERD. Continue PPI. BPH. Continue tamsulosin. Essential hypertension. Continue metoprolol and lisinopril. Depression. Continue fluoxetine. DVT prophylaxis: Heparin Code status: Full needs ongoing hospitalization for hypoxic respiratory failure treatment secondary to COPD, rhinovirus with need for high flow oxygen requiring close monitoring of respiratory status Quality Stroke Does the patient have a stroke diagnosis?: No VTE Prior VTE?: No VTE Risk Level:: Medical - moderate - high VTE Device Contraindication: Treatment Not Indicated VTE Drug Contraindication: N/A - Med Ordered
[2023-08-01] MEDS: levoFLOXacin 750 MG TABLET PO (16:42)
[2023-08-01 19:57] LABS: Glucose, Whole Blood 194 mg/dL (60-115)
[2023-08-01 19:57] LABS: Glucose, Whole Blood 220 mg/dL (60-115)
[2023-08-01] MEDS: Tamsulosin HCL 0.4 MG CAPSULE PO (21:08)
[2023-08-01] MEDS: Aspirin Enteric Coated 81 MG TABLET.DR PO (21:08)
[2023-08-01] MEDS: Atorvastatin Calcium 40 MG TABLET PO (21:09)
[2023-08-02] VITALS (12 sets, daily range): BP systolic 137–165; BP diastolic 64–80; PULSE 56–96; RESP 18–22; TEMP 36.1–37.1; O2SAT 93–96
[2023-08-02] MEDS: Heparin Sodium,Porcine 5,000 UNIT/ML VIAL 5000 UNIT SUBCUT ×3 (00:54→16:34)
[2023-08-02] MEDS: Clindamycin Phosphate/D5W 300 MG/50 ML PIGGYBACK 100 MG IV ×3 (04:55→21:35)
[2023-08-02] MEDS: methylPREDNISolone Sod Succ 40 MG/ML VIAL IVPUSH ×3 (06:40→21:35)
[2023-08-02] MEDS: Omeprazole 20 MG CAPSULE.DR PO (06:40)
[2023-08-02 07:24] LABS: Glucose, Whole Blood 178 mg/dL (60-115)
[2023-08-02] MEDS: Albuterol/Iprat 2.5/0.5MG 3 ML AMPUL.NEB INHALE ×4 (07:59→19:45)
[2023-08-02] MEDS: Fluticasone/Umeclidinium/Vilanterol 200/62.5/25 BLST.W.DEV 1 PUFF INHALE (07:59)
[2023-08-02] MEDS: lisinopriL 10 MG TABLET PO (08:26)
[2023-08-02] MEDS: Cholestyramine (With Sugar) 4 GM POWD.PACK PO (08:26)
[2023-08-02] MEDS: Metoprolol Succinate ER 25 MG TAB.ER.24H PO (08:26)
[2023-08-02] MEDS: Benzonatate 100 MG CAPSULE PO (08:26)
[2023-08-02] MEDS: Isosorbide Mononitrate 60 MG TAB.ER.24H PO (08:26)
[2023-08-02] MEDS: FLUoxetine HCl 20 MG CAPSULE 40 MG PO (08:26)
[2023-08-02] MEDS: Insulin Lispro 100 UNIT/ML 3 ML VIAL SUBCUT ×4 (08:27→21:35)
[2023-08-02] MEDS: 0.9 % Sodium Chloride Flush 3 ML SYRINGE IVFLUSH ×2 (08:27→16:34)
[2023-08-02] MEDS: guaiFENesin DM 600/30 1 TAB TAB.ER.12H 2 TAB PO ×2 (08:27→21:35)
[2023-08-02] MEDS: methIMAzole 5 MG TABLET PO (08:27)
[2023-08-02] MEDS: Theophylline Anhydrous ER 400 MG TAB.ER.24H PO (08:27)
[2023-08-02 11:04] LABS: Anion Gap 13 (12-20); Blood Urea Nitrogen 28 mg/dL (9-16); Calcium 8.6 mg/dL (8.4-10.2); Carbon Dioxide 26 mmol/L (22-29); Chloride 103 mmol/L (96-108); Creatinine Clr Calc Pharmacy 83.8; Estimated Glomerular Filt Rate > 60; Glucose Random 190 mg/dL (60-115); Potassium 4.8 mmol/L (3.3-5.1); Sodium 137 mmol/L (135-145)
[2023-08-02 11:40] LABS: Glucose, Whole Blood 209 mg/dL (60-115)
--- NOTE | 2023-08-02 13:09 | P.PNIM_ITS ---
Subjective Subjective Date of Service: 08/02/23 Interval History: seen and examined this morning follow up for respiratory failure Patient continues to bring up a lot of phlegm reports that he is feeling better each day, still requiring high-flow oxygen Review of Systems Review of Systems: Yes all other systems are reviewed and are negative Constitutional Constitutional: Denies chills and Denies fever(s) Physical Exam 2 Vital Signs: Vital Signs: Last Vital Signs Temp 98.3 F 08/02/23 11:14 Pulse 74 08/02/23 11:24 Resp 20 08/02/23 11:24 BP 150/70 H 08/02/23 11:14 Pulse Ox 94 08/02/23 11:14 O2 Del Method High Flow Nasal C annula 08/02/23 11:14 O2 Flow Rate 33 08/02/23 11:14 FiO2 35 08/02/23 11:14 BMI result Body Mass Index 34.0 Const: General: alert, awake and ill appearing Nutritional Appearance: o verweight Orientation/consciousness: patient oriented x3 Resp: Other: b/l rhonchi, scattered wheeze Effort & Inspection: normal respiratory effort, able to speak in complete sentences, no respiratory distress and no use of accessory muscles Cardio: Rate: regular rate GI: Inspection: No distended Palpation (GI): Soft to palpation and nontender Neuro: General: patient oriented x3, moves all extremities and CN's II-XI intact bilaterally Extrem: General: Yes no pedal edema Objective Data Active Medications Acetaminophen (Acetaminophen 325 Mg Tablet) 650 mg PO Q6H PRN PRN Reason: Pain, Mild (Pain Scale 1-3) Albuterol/Ipratropium (Albuterol/Iprat 2.5/0.5mg 3 Ml Ampul.Neb) 3 ml INHALE RQ4H WHILE AWAKE [facility] Last Admin: 08/02/23 11:23 Dose: 3 ml Documented By: BRADLY Aspirin (Aspirin Enteric Coated 81 Mg Tablet.) 81 mg PO BEDTIME [facility] Last Admin: 08/01/23 21:08 Dose: 81 mg Documented By: TERE Atorvastatin Calcium (Atorvastatin Calcium 40 Mg Tablet) 40 mg PO BEDTIME [facility] Last Admin: 08/01/23 21:09 Dose: 40 mg Documented By: TERE Benzonatate (Benzonatate 100 Mg Capsule) 100 mg PO TID PRN PRN Reason: Cough Last Admin: 08/02/23 08:26 Dose: 100 mg Documented By: MARION Cholestyramine Resin (Cholestyramine (With Sugar) 4 Gm Powd.Pack) 4 gm PO DAILY [facility] Last Admin: 08/02/23 08:26 Dose: 4 gm Documented By: MARION Fluoxetine HCl (Fluoxetine Hcl 20 Mg Capsule) 40 mg PO DAILY [facility] Last Admin: 08/02/23 08:26 Dose: 40 mg Documented By: MARION Fluticasone/Umeclidinium/Vilanterol (Fluticasone/Umeclidinium/Vilanterol 200/62.5/25 Blst.W.Dev) 1 puff INHALE RDAILY [facility] Last Admin: 08/02/23 07:59 Dose: 1 puff Documented By: BRADLY Glucose (Glucose Gel 15 Gm Gel..Gram.) 15 gm PO Q15M PRN; Protocol PRN Reason: per Hypoglycemia Standing Ord. Guaifenesin/Dextromethorphan (Guaifenesin Dm 600/30 1 Tab Tab.Er.12h) 2 tab PO BID [facility] Last Admin: 08/02/23 08:27 Dose: 2 tab Documented By: MARION Heparin Sodium (Porcine) (Heparin Sodium,Porcine 5,000 Unit/Ml Vial) 5,000 unit SUBCUT Q8H [facility] Last Admin: 08/02/23 08:26 Dose: 5,000 unit Documented By: MARION Dextrose (D10) 250 mls @ 750 mls/hr IV Q15M PRN PRN Reason: per Hypoglycemia Standing Ord. Clindamycin Phosphate (Cleocin) 300 mg in 50 mls @ 100 mls/hr IV Q8H [facility] Last Admin: 08/02/23 12:50 Dose: 100 mls/hr Documented By: MARION Insulin Human Lispro (Insulin Lispro 100 Unit/Ml 3 Ml Vial) 0 unit SUBCUT QIDACHS [facility]; Protocol Last Admin: 08/02/23 12:50 Dose: 4 unit Documented By: MARION Isosorbide Mononitrate (Isosorbide Mononitrate 60 Mg Tab.Er.24h) 60 mg PO DAILY [facility]; Protocol Last Admin: 08/02/23 08:26 Dose: 60 mg Documented By: MARION Levofloxacin (Levofloxacin 750 Mg Tablet) 750 mg PO Q24H [facility] Last Admin: 08/01/23 16:42 Dose: 750 mg Documented By: MARION Lisinopril (Lisinopril 10 Mg Tablet) 10 mg PO DAILY [facility]; Protocol Last Admin: 08/02/23 08:26 Dose: 10 mg Documented By: MARION Methimazole (Methimazole 5 Mg Tablet) 5 mg PO DAILY [facility] Last Admin: 08/02/23 08:27 Dose: 5 mg Documented By: MARION Methylprednisolone Sodium Succinate (Methylprednisolone Sod Succ 40 Mg/Ml Vial) 40 mg IVPUSH Q8H [facility] Last Admin: 08/02/23 06:40 Dose: 40 mg Documented By: TERE Metoprolol Succinate (Metoprolol Succinate Er 25 Mg Tab.Er.24h) 25 mg PO DAILY [facility]; Protocol Last Admin: 08/02/23 08:26 Dose: 25 mg Documented By: MARION Nitroglycerin (Nitroglycerin 0.4 Mg Tab.Subl) 0.4 mg SUBLINGUAL Q5M PRN PRN Reason: angina Omeprazole (Omeprazole 20 Mg Capsule.Dr) 20 mg PO DAILY@0630 [facility] Last Admin: 08/02/23 06:40 Dose: 20 mg Documented By: TERE Simethicone (Simethicone 80 Mg Tab.Chew) 80 mg PO QID PRN PRN Reason: abdominal distention Sodium Chloride (0.9 % Sodium Chloride Flush 3 Ml Syringe) 3 ml IVFLUSH QSHIFT [facility] Last Admin: 08/02/23 08:27 Dose: 3 ml Documented By: MARION Tamsulosin HCl (Tamsulosin Hcl 0.4 Mg Capsule) 0.4 mg PO BEDTIME [facility] Last Admin: 08/01/23 21:08 Dose: 0.4 mg Documented By: TERE Theophylline (Theophylline Anhydrous Er 400 Mg Tab.Er.24h) 400 mg PO DAILY [facility] Last Admin: 08/02/23 08:27 Dose: 400 mg Documented By: MARION Labs 07/31/23 05:04 08/02/23 06:13 Labs: Laboratory Results - last 24 hr 08/01/23 08/01/23 08/02/23 15:57 19:53 06:13 Hold Purple Top SEE NOTE Anion Gap 13 Estim Creat Clear Calc 83.8 Estimated GFR > 60 POC Glucose 220 H 194 H Random Glucose 190 H Calcium 8.6 D 08/02/23 08/02/23 07:21 11:37 Hold Purple Top Anion Gap Estim Creat Clear Calc Estimated GFR POC Glucose 178 H 209 H Random Glucose Calcium Microbiology Microbiology Results: Microbiology 07/30/23 16:44 Blood Culture - Preliminary Blood - Venous No growth after 48 hours. 07/30/23 16:43 Blood Culture - Preliminary Blood - Venous No growth after 48 hours. Assessment and Plan (1) Acute exacerbation of chronic obstructive pulmonary disease: Status: Acute (2) Aspiration pneumonitis: Status: Acute (3) Multifocal pneumonia: Status: Acute Plan This is a 68 year old male with history of COPD, diabetes, pulmonary nodules, coronary artery disease hypertension, hyperlipidemia, hypothyroidism who presents to the emergency department with shortness of breath felt to be hypoxic and requiring high-flow supplemental oxygen Acute hypoxic respiratory failure secondary to acute exacerbation chronic obstructive pulmonary disease with associated infection bronchiolitis/pneumonitis and entero/rhinovirus Concern for possible microaspiration continue clindamycin, levaquin (pcn allergy) RPP + for erntero/rhinovirus Continue high-flow supplemental oxygen and wean as tolerated Continue bronchodilator therapy, IV steroids Continue theophylline. theophylline level pending Pulmonology following blood cultures negative Consider barium swallow when off high-flow History of esophageal stricture Enlarged esophagus seen on imaging Recommend barium swallow when off high-flow oxygen Type 2 diabetes mellitus. Hold metformin and glipizide. Insulin sliding scale. Hyperthyroidism. Continue methimazole and metoprolol TSH ok Hyperlipidemia. Continue statin. CAD. Continue aspirin, statin, BB, imdur GERD. Continue PPI. BPH. Continue tamsulosin. Essential hypertension. Continue metoprolol and lisinopril. HCTZ on hold mood Continue fluoxetine. DVT prophylaxis: Heparin Code status: Full needs ongoing hospitalization for hypoxic respiratory failure treatment secondary to COPD, rhinovirus/enterovirus with need for high flow oxygen requiring close monitoring of respiratory status Quality Stroke Does the patient have a stroke diagnosis?: No VTE Prior VTE?: No VTE Risk Level:: Medical - moderate - high VTE Device Contraindication: Treatment Not Indicated VTE Drug Contraindication: N/A - Med Ordered
[2023-08-02 13:48] LABS: Magnesium 2.2 mg/dL (1.6-2.6)
[2023-08-02 15:58] LABS: Glucose, Whole Blood 265 mg/dL (60-115)
[2023-08-02] MEDS: Gabapentin 600 MG TABLET PO ×2 (16:34→21:35)
[2023-08-02] MEDS: levoFLOXacin 750 MG TABLET PO (16:34)
[2023-08-02 20:04] LABS: Glucose, Whole Blood 240 mg/dL (60-115)
[2023-08-02] MEDS: Aspirin Enteric Coated 81 MG TABLET.DR PO (21:35)
[2023-08-02] MEDS: Tamsulosin HCL 0.4 MG CAPSULE PO (21:35)
[2023-08-02] MEDS: Atorvastatin Calcium 40 MG TABLET PO (21:36)
[2023-08-03] VITALS (13 sets, daily range): BP systolic 119–153; BP diastolic 57–87; PULSE 58–79; RESP 16–24; TEMP 36.2–37; O2SAT 88–98
[2023-08-03] MEDS: Benzonatate 100 MG CAPSULE PO (02:56)
[2023-08-03] MEDS: Heparin Sodium,Porcine 5,000 UNIT/ML VIAL 5000 UNIT SUBCUT ×4 (02:57→23:29)
[2023-08-03] MEDS: Clindamycin Phosphate/D5W 300 MG/50 ML PIGGYBACK 100 MG IV (04:06)
[2023-08-03] MEDS: methylPREDNISolone Sod Succ 40 MG/ML VIAL IVPUSH ×3 (06:36→23:29)
[2023-08-03] MEDS: Omeprazole 20 MG CAPSULE.DR PO (06:36)
[2023-08-03 07:41] LABS: Glucose, Whole Blood 166 mg/dL (60-115)
[2023-08-03] MEDS: Fluticasone/Umeclidinium/Vilanterol 200/62.5/25 BLST.W.DEV 1 PUFF INHALE (08:06)
[2023-08-03] MEDS: Albuterol/Iprat 2.5/0.5MG 3 ML AMPUL.NEB INHALE ×4 (08:08→19:36)
[2023-08-03 08:23] LABS: Theophylline < 0.8
[2023-08-03] MEDS: guaiFENesin DM 600/30 1 TAB TAB.ER.12H 2 TAB PO ×2 (08:59→19:31)
[2023-08-03] MEDS: Theophylline Anhydrous ER 400 MG TAB.ER.24H PO (09:00)
[2023-08-03] MEDS: methIMAzole 5 MG TABLET PO (09:00)
[2023-08-03] MEDS: lisinopriL 10 MG TABLET PO (09:00)
[2023-08-03] MEDS: Metoprolol Succinate ER 25 MG TAB.ER.24H PO (09:01)
[2023-08-03] MEDS: Cholestyramine (With Sugar) 4 GM POWD.PACK PO (09:01)
[2023-08-03] MEDS: Isosorbide Mononitrate 60 MG TAB.ER.24H PO (09:01)
[2023-08-03] MEDS: FLUoxetine HCl 20 MG CAPSULE 40 MG PO (09:01)
[2023-08-03] MEDS: Gabapentin 600 MG TABLET PO ×3 (09:01→19:32)
[2023-08-03] MEDS: 0.9 % Sodium Chloride Flush 3 ML SYRINGE IVFLUSH ×4 (09:02→23:32)
[2023-08-03] MEDS: Insulin Lispro 100 UNIT/ML 3 ML VIAL SUBCUT ×4 (09:02→21:24)
--- NOTE | 2023-08-03 09:32 | P.PNIM_ITS ---
Subjective Subjective Date of Service: 08/03/23 Interval History: seen and examined this morning follow up for respiratory failure Patient continues to bring up a lot of phlegm reports that he is feeling better each day of high flow Review of Systems Review of Systems: Yes all other systems are reviewed and are negative Constitutional Constitutional: Denies chills and Denies fever(s) Physical Exam 2 Vital Signs: Vital Signs: Last Vital Signs Temp 97.6 F 08/03/23 08:00 Pulse 61 08/03/23 08:09 Resp 18 08/03/23 08:09 BP 153/87 H 08/03/23 08:00 Pulse Ox 96 08/03/23 08:00 O2 Del Method Oxymask 08/03/23 08:00 O2 Flow Rate 6 08/03/23 08:00 FiO2 39 08/02/23 19:45 BMI result Body Mass Index 34.0 Objective Data Active Medications Acetaminophen (Acetaminophen 325 Mg Tablet) 650 mg PO Q6H PRN PRN Reason: Pain, Mild (Pain Scale 1-3) Albuterol/Ipratropium (Albuterol/Iprat 2.5/0.5mg 3 Ml Ampul.Neb) 3 ml INHALE RQ4H WHILE AWAKE [facility] Last Admin: 08/03/23 08:08 Dose: 3 ml Documented By: BRADLY Aspirin (Aspirin Enteric Coated 81 Mg Tablet.) 81 mg PO BEDTIME [facility] Last Admin: 08/02/23 21:35 Dose: 81 mg Documented By: MARION Atorvastatin Calcium (Atorvastatin Calcium 40 Mg Tablet) 40 mg PO BEDTIME [facility] Last Admin: 08/02/23 21:36 Dose: 40 mg Documented By: MARION Benzonatate (Benzonatate 100 Mg Capsule) 100 mg PO TID PRN PRN Reason: Cough Last Admin: 08/03/23 02:56 Dose: 100 mg Documented By: JOSÉ LUIS Cholestyramine Resin (Cholestyramine (With Sugar) 4 Gm Powd.Pack) 4 gm PO DAILY [facility] Last Admin: 08/03/23 09:01 Dose: 4 gm Documented By: JAMAAL Fluoxetine HCl (Fluoxetine Hcl 20 Mg Capsule) 40 mg PO DAILY [facility] Last Admin: 08/03/23 09:01 Dose: 40 mg Documented By: JAMAAL Fluticasone/Umeclidinium/Vilanterol (Fluticasone/Umeclidinium/Vilanterol 200/62.5/25 Blst.W.Dev) 1 puff INHALE RDAILY [facility] Last Admin: 08/03/23 08:06 Dose: 1 puff Documented By: BRADLY Gabapentin (Gabapentin 600 Mg Tablet) 600 mg PO TID [facility] Last Admin: 08/03/23 09:01 Dose: 600 mg Documented By: JAMAAL Glucose (Glucose Gel 15 Gm Gel..Gram.) 15 gm PO Q15M PRN; Protocol PRN Reason: per Hypoglycemia Standing Ord. Guaifenesin/Dextromethorphan (Guaifenesin Dm 600/30 1 Tab Tab.Er.12h) 2 tab PO BID [facility] Last Admin: 08/03/23 08:59 Dose: 2 tab Documented By: JAMAAL Heparin Sodium (Porcine) (Heparin Sodium,Porcine 5,000 Unit/Ml Vial) 5,000 unit SUBCUT Q8H [facility] Last Admin: 08/03/23 09:01 Dose: 5,000 unit Documented By: JAMAAL Dextrose (D10) 250 mls @ 750 mls/hr IV Q15M PRN PRN Reason: per Hypoglycemia Standing Ord. Clindamycin Phosphate (Cleocin) 300 mg in 50 mls @ 100 mls/hr IV Q8H [facility] Last Infusion: 08/03/23 04:36 Dose: Infused Documented By: JOSÉ LUIS Insulin Human Lispro (Insulin Lispro 100 Unit/Ml 3 Ml Vial) 0 unit SUBCUT QIDACHS [facility]; Protocol Last Admin: 08/03/23 09:02 Dose: 2 unit Documented By: JAMAAL Isosorbide Mononitrate (Isosorbide Mononitrate 60 Mg Tab.Er.24h) 60 mg PO DAILY [facility]; Protocol Last Admin: 08/03/23 09:01 Dose: 60 mg Documented By: JAMAAL Levofloxacin (Levofloxacin 750 Mg Tablet) 750 mg PO Q24H [facility] Last Admin: 08/02/23 16:34 Dose: 750 mg Documented By: MARION Lisinopril (Lisinopril 10 Mg Tablet) 10 mg PO DAILY [facility]; Protocol Last Admin: 08/03/23 09:00 Dose: 10 mg Documented By: JAMAAL Methimazole (Methimazole 5 Mg Tablet) 5 mg PO DAILY [facility] Last Admin: 08/03/23 09:00 Dose: 5 mg Documented By: JAMAAL Methylprednisolone Sodium Succinate (Methylprednisolone Sod Succ 40 Mg/Ml Vial) 40 mg IVPUSH Q8H [facility] Last Admin: 08/03/23 06:36 Dose: 40 mg Documented By: JOSÉ LUIS Metoprolol Succinate (Metoprolol Succinate Er 25 Mg Tab.Er.24h) 25 mg PO DAILY [facility]; Protocol Last Admin: 08/03/23 09:01 Dose: 25 mg Documented By: JAMAAL Nitroglycerin (Nitroglycerin 0.4 Mg Tab.Subl) 0.4 mg SUBLINGUAL Q5M PRN PRN Reason: angina Omeprazole (Omeprazole 20 Mg Capsule.Dr) 20 mg PO DAILY@0630 [facility] Last Admin: 08/03/23 06:36 Dose: 20 mg Documented By: JOSÉ LUIS Simethicone (Simethicone 80 Mg Tab.Chew) 80 mg PO QID PRN PRN Reason: abdominal distention Sodium Chloride (0.9 % Sodium Chloride Flush 3 Ml Syringe) 3 ml IVFLUSH QSHIFT [facility] Last Admin: 08/03/23 09:02 Dose: 3 ml Documented By: JAMAAL Tamsulosin HCl (Tamsulosin Hcl 0.4 Mg Capsule) 0.4 mg PO BEDTIME [facility] Last Admin: 08/02/23 21:35 Dose: 0.4 mg Documented By: MARION Theophylline (Theophylline Anhydrous Er 400 Mg Tab.Er.24h) 400 mg PO DAILY [facility] Last Admin: 08/03/23 09:00 Dose: 400 mg Documented By: JAMAAL Labs 07/31/23 05:04 08/02/23 06:13 Labs: Laboratory Results - last 24 hr 07/30/23 08/02/23 08/02/23 21:36 06:13 11:37 Anion Gap 13 Estim Creat Clear Calc 83.8 Estimated GFR > 60 POC Glucose 209 H Random Glucose 190 H Calcium 8.6 D Magnesium 2.2 Theophylline < 0.8 08/02/23 08/02/23 08/03/23 15:54 20:01 07:35 Anion Gap Estim Creat Clear Calc Estimated GFR POC Glucose 265 H 240 H 166 H Random Glucose Calcium Magnesium Theophylline Assessment and Plan (1) Acute exacerbation of chronic obstructive pulmonary disease: Status: Acute (2) Aspiration pneumonitis: Status: Acute (3) Multifocal pneumonia: Status: Acute Plan This is a 68 year old male with history of COPD, diabetes, pulmonary nodules, coronary artery disease hypertension, hyperlipidemia, hypothyroidism who presents to the emergency department with shortness of breath felt to be hypoxic and requiring high-flow supplemental oxygen Acute hypoxic respiratory failure secondary to acute exacerbation chronic obstructive pulmonary disease with associated infection bronchiolitis/pneumonitis and entero/rhinovirus Concern for possible microaspiration continue clindamycin, levaquin (pcn allergy) RPP + for erntero/rhinovirus s/p high-flow supplemental oxygen Continue bronchodilator therapy, IV steroids Continue theophylline. Pulmonology following blood cultures negative Consider barium swallow NC ocygen to keep sats >88% History of esophageal stricture Enlarged esophagus seen on imaging Recommend barium swallow when off high-flow oxygen Type 2 diabetes mellitus. Hold metformin and glipizide. Insulin sliding scale. Hyperthyroidism. Continue methimazole and metoprolol TSH ok Hyperlipidemia. Continue statin. CAD. Continue aspirin, statin, BB, imdur GERD. Continue PPI. BPH. Continue tamsulosin. Essential hypertension. Continue metoprolol and lisinopril. HCTZ on hold mood Continue fluoxetine. DVT prophylaxis: Heparin attending Dr. Guillen Code status: Full needs ongoing hospitalization for hypoxic respiratory failure treatment secondary to COPD, rhinovirus/enterovirus with need for high flow oxygen requiring close monitoring of respiratory status Quality Stroke Does the patient have a stroke diagnosis?: No VTE Prior VTE?: No VTE Risk Level:: Medical - moderate - high VTE Device Contraindication: Treatment Not Indicated VTE Drug Contraindication: N/A - Med Ordered
[2023-08-03 12:13] LABS: Glucose, Whole Blood 258 mg/dL (60-115)
[2023-08-03] MEDS: Clindamycin HCL 150 MG CAPSULE PO ×2 (13:19→19:32)
[2023-08-03 16:10] LABS: Glucose, Whole Blood 157 mg/dL (60-115)
[2023-08-03] MEDS: levoFLOXacin 750 MG TABLET PO (16:32)
--- NOTE | 2023-08-03 16:52 | MHC.CM.PN ---
EMR REVIEWED, PT REMAINS ON OVER 40% O2 REQ, NO PLAN FOR DC AT THIS TIME, CM WILL CONT TO FOLLOW DC NEEDS.
[2023-08-03] MEDS: Tamsulosin HCL 0.4 MG CAPSULE PO (19:31)
[2023-08-03] MEDS: Aspirin Enteric Coated 81 MG TABLET.DR PO (19:31)
[2023-08-03] MEDS: Atorvastatin Calcium 40 MG TABLET PO (19:32)
[2023-08-03 19:58] LABS: Glucose, Whole Blood 229 mg/dL (60-115)
[2023-08-04] VITALS (10 sets, daily range): BP systolic 118–153; BP diastolic 66–81; PULSE 63–97; RESP 18–20; TEMP 36.3–36.8; O2SAT 85–97
[2023-08-04] MEDS: Clindamycin HCL 150 MG CAPSULE PO ×3 (05:38→21:02)
[2023-08-04] MEDS: Omeprazole 20 MG CAPSULE.DR PO (05:38)
--- NOTE | 2023-08-04 06:12 | PC.NURSE ---
AWAKE..ALERT..ORIENTED X3..O2 5 L/M VIA MASK...NO DISTRESS AT REST...REFUSES BED ALARM..OOB TO BR TO VOID WITH STEADY GAIT..RESTFUL OVERNIGHT
[2023-08-04 06:59] LABS: Glucose, Whole Blood 220 mg/dL (60-115)
[2023-08-04] MEDS: Albuterol/Iprat 2.5/0.5MG 3 ML AMPUL.NEB INHALE ×4 (07:58→19:31)
[2023-08-04] MEDS: Fluticasone/Umeclidinium/Vilanterol 200/62.5/25 BLST.W.DEV 1 PUFF INHALE (07:58)
[2023-08-04] MEDS: methylPREDNISolone Sod Succ 40 MG/ML VIAL IVPUSH ×3 (08:12→23:16)
[2023-08-04] MEDS: Cholestyramine (With Sugar) 4 GM POWD.PACK PO (08:12)
[2023-08-04] MEDS: Insulin Lispro 100 UNIT/ML 3 ML VIAL SUBCUT ×4 (08:12→21:03)
[2023-08-04] MEDS: Isosorbide Mononitrate 60 MG TAB.ER.24H PO (08:13)
[2023-08-04] MEDS: guaiFENesin DM 600/30 1 TAB TAB.ER.12H 2 TAB PO ×2 (08:13→21:02)
[2023-08-04] MEDS: lisinopriL 10 MG TABLET PO (08:13)
[2023-08-04] MEDS: Heparin Sodium,Porcine 5,000 UNIT/ML VIAL 5000 UNIT SUBCUT ×3 (08:13→23:16)
[2023-08-04] MEDS: Metoprolol Succinate ER 25 MG TAB.ER.24H PO (08:13)
[2023-08-04] MEDS: FLUoxetine HCl 20 MG CAPSULE 40 MG PO (08:13)
[2023-08-04] MEDS: methIMAzole 5 MG TABLET PO (08:13)
[2023-08-04] MEDS: Theophylline Anhydrous ER 400 MG TAB.ER.24H PO (08:13)
[2023-08-04] MEDS: Gabapentin 600 MG TABLET PO ×3 (08:14→21:02)
[2023-08-04] MEDS: 0.9 % Sodium Chloride Flush 3 ML SYRINGE IVFLUSH ×3 (08:14→21:03)
--- NOTE | 2023-08-04 10:27 | P.PNIM_ITS ---
Subjective Subjective Date of Service: 08/04/23 Review of Systems Follow up acute hypoxic resp failure, copd, pneumonitis feeling better still with some dysphagia Physical Exam 2 Vital Signs: Vital Signs: Last Vital Signs Temp 98.0 F 08/04/23 07:17 Pulse 88 08/04/23 08:16 Resp 20 08/04/23 08:05 BP 136/72 08/04/23 07:17 Pulse Ox 94 08/04/23 07:17 O2 Del Method Oxymask 08/04/23 07:17 O2 Flow Rate 5 08/04/23 07:17 FiO2 39 08/02/23 19:45 BMI result Body Mass Index 34.0 Appearing in no acute distress lung sounds are clear to auscultation heart regular rate rhythm, clear S1, S2 positive bowel sounds, abdomen is soft, nontender neuro patient is alert x3, no focal deficits Objective Data Active Medications Acetaminophen (Acetaminophen 325 Mg Tablet) 650 mg PO Q6H PRN PRN Reason: Pain, Mild (Pain Scale 1-3) Albuterol/Ipratropium (Albuterol/Iprat 2.5/0.5mg 3 Ml Ampul.Neb) 3 ml INHALE RQ4H WHILE AWAKE [facility] Last Admin: 08/04/23 07:58 Dose: 3 ml Documented By: RJ Aspirin (Aspirin Enteric Coated 81 Mg Tablet.Dr) 81 mg PO BEDTIME [facility] Last Admin: 08/03/23 19:31 Dose: 81 mg Documented By: ASHLEE Atorvastatin Calcium (Atorvastatin Calcium 40 Mg Tablet) 40 mg PO BEDTIME [facility] Last Admin: 08/03/23 19:32 Dose: 40 mg Documented By: ASHLEE Benzonatate (Benzonatate 100 Mg Capsule) 100 mg PO TID PRN PRN Reason: Cough Last Admin: 08/03/23 02:56 Dose: 100 mg Documented By: JOSÉ LUIS Cholestyramine Resin (Cholestyramine (With Sugar) 4 Gm Powd.Pack) 4 gm PO DAILY [facility] Last Admin: 08/04/23 08:12 Dose: 4 gm Documented By: MARK Clindamycin HCl (Clindamycin Hcl 150 Mg Capsule) 150 mg PO Q8H [facility] Last Admin: 08/04/23 05:38 Dose: 150 mg Documented By: CLAYTON Fluoxetine HCl (Fluoxetine Hcl 20 Mg Capsule) 40 mg PO DAILY [facility] Last Admin: 08/04/23 08:13 Dose: 40 mg Documented By: MARK Fluticasone/Umeclidinium/Vilanterol (Fluticasone/Umeclidinium/Vilanterol 200/62.5/25 Blst.W.Dev) 1 puff INHALE RDAILY [facility] Last Admin: 08/04/23 07:58 Dose: 1 puff Documented By: RJ Gabapentin (Gabapentin 600 Mg Tablet) 600 mg PO TID [facility] Last Admin: 08/04/23 08:14 Dose: 600 mg Documented By: MARK Glucose (Glucose Gel 15 Gm Gel..Gram.) 15 gm PO Q15M PRN; Protocol PRN Reason: per Hypoglycemia Standing Ord. Guaifenesin/Dextromethorphan (Guaifenesin Dm 600/30 1 Tab Tab.Er.12h) 2 tab PO BID [facility] Last Admin: 08/04/23 08:13 Dose: 2 tab Documented By: MARK Heparin Sodium (Porcine) (Heparin Sodium,Porcine 5,000 Unit/Ml Vial) 5,000 unit SUBCUT Q8H [facility] Last Admin: 08/04/23 08:13 Dose: 5,000 unit Documented By: MARK Dextrose (D10) 250 mls @ 750 mls/hr IV Q15M PRN PRN Reason: per Hypoglycemia Standing Ord. Insulin Human Lispro (Insulin Lispro 100 Unit/Ml 3 Ml Vial) 0 unit SUBCUT QIDACHS [facility]; Protocol Last Admin: 08/04/23 08:12 Dose: 4 unit Documented By: MARK Isosorbide Mononitrate (Isosorbide Mononitrate 60 Mg Tab.Er.24h) 60 mg PO DAILY [facility]; Protocol Last Admin: 08/04/23 08:13 Dose: 60 mg Documented By: MARK Levofloxacin (Levofloxacin 750 Mg Tablet) 750 mg PO Q24H [facility] Last Admin: 08/03/23 16:32 Dose: 750 mg Documented By: SOFIA Lisinopril (Lisinopril 10 Mg Tablet) 10 mg PO DAILY [facility]; Protocol Last Admin: 08/04/23 08:13 Dose: 10 mg Documented By: MARK Methimazole (Methimazole 5 Mg Tablet) 5 mg PO DAILY [facility] Last Admin: 08/04/23 08:13 Dose: 5 mg Documented By: MARK Methylprednisolone Sodium Succinate (Methylprednisolone Sod Succ 40 Mg/Ml Vial) 40 mg IVPUSH Q8H [facility] Last Admin: 08/04/23 08:12 Dose: 40 mg Documented By: MARK Metoprolol Succinate (Metoprolol Succinate Er 25 Mg Tab.Er.24h) 25 mg PO DAILY [facility]; Protocol Last Admin: 08/04/23 08:13 Dose: 25 mg Documented By: MARK Nitroglycerin (Nitroglycerin 0.4 Mg Tab.Subl) 0.4 mg SUBLINGUAL Q5M PRN PRN Reason: angina Omeprazole (Omeprazole 20 Mg Capsule.Dr) 20 mg PO DAILY@0630 [facility] Last Admin: 08/04/23 05:38 Dose: 20 mg Documented By: CLAYTON Simethicone (Simethicone 80 Mg Tab.Chew) 80 mg PO QID PRN PRN Reason: abdominal distention Sodium Chloride (0.9 % Sodium Chloride Flush 3 Ml Syringe) 3 ml IVFLUSH QSHIFT [facility] Last Admin: 08/04/23 08:14 Dose: 3 ml Documented By: MARK Tamsulosin HCl (Tamsulosin Hcl 0.4 Mg Capsule) 0.4 mg PO BEDTIME [facility] Last Admin: 08/03/23 19:31 Dose: 0.4 mg Documented By: ASHLEE Theophylline (Theophylline Anhydrous Er 400 Mg Tab.Er.24h) 400 mg PO DAILY [facility] Last Admin: 08/04/23 08:13 Dose: 400 mg Documented By: MARK Labs 07/31/23 05:04 08/02/23 06:13 Labs: Laboratory Results - last 24 hr 08/03/23 08/03/23 08/03/23 12:09 16:07 19:55 POC Glucose 258 H 157 H 229 H 08/04/23 06:52 POC Glucose 220 H Assessment and Plan (1) Acute exacerbation of chronic obstructive pulmonary disease: Status: Acute (2) Aspiration pneumonitis: Status: Acute (3) Multifocal pneumonia: Status: Acute Plan This is a 68 year old male with history of COPD, diabetes, pulmonary nodules, coronary artery disease hypertension, hyperlipidemia, hypothyroidism who presents to the emergency department with shortness of breath felt to be hypoxic and requiring high-flow supplemental oxygen Acute hypoxic respiratory failure secondary to acute exacerbation chronic obstructive pulmonary disease with associated infection bronchiolitis/pneumonitis and entero/rhinovirus Concern for possible microaspiration continue clindamycin, levaquin (pcn allergy) RPP + for erntero/rhinovirus s/p high-flow supplemental oxygen Continue bronchodilator therapy, IV steroids Continue theophylline. Pulmonology following blood cultures negative Home o2 eval> will require 2 liters with ambulation History of esophageal stricture Enlarged esophagus seen on imaging Barium swallow ordered Type 2 diabetes mellitus. Hold metformin and glipizide. Insulin sliding scale. Hyperthyroidism. Continue methimazole and metoprolol TSH ok Hyperlipidemia. Continue statin. CAD. Continue aspirin, statin, BB, imdur GERD. Continue PPI. BPH. Continue tamsulosin. Essential hypertension. Continue metoprolol and lisinopril. HCTZ on hold mood Continue fluoxetine. DVT prophylaxis: Heparin attending Dr. Guillen Code status: Full DISPO plan for acute rehab needs ongoing hospitalization for hypoxic respiratory failure treatment secondary to COPD, rhinovirus/enterovirus with need for high flow oxygen requiring close monitoring of respiratory status Quality Stroke Does the patient have a stroke diagnosis?: No VTE Prior VTE?: No VTE Risk Level:: Medical - moderate - high VTE Device Contraindication: Treatment Not Indicated VTE Drug Contraindication: N/A - Med Ordered
[2023-08-04 10:56] LABS: Glucose, Whole Blood 332 mg/dL (60-115)
--- NOTE | 2023-08-04 14:21 | MHC.CM.PN ---
Addendum entered by Shari Putnam RN 08/04/23 15:37: [facility] NOT CONTRACTED W/PT'S INSURANCE, [facility] REFERRAL PL[facility] AND CM WILL DISCUSS BED OFFERS W/PT. Original Note: CM MET W/PT TO DISCUSS DISPO PT/OT RECOMMEND ACUTE REHAB HOWEVER PER ALL 3 ACUTE REHABS PT DOES NOT QUALIFY FOR ACUTE, PT REPORTS HE LIVES IN [place] AND AFTER CM REVIEWED SNF OPTIONS PT REPORTS HE PREFERS [facility], REFERRAL PLACED AND CM AWAITING RESPONSE, CM WILL CONT TO FOLLOW DC NEEDS.
[2023-08-04 16:02] LABS: Glucose, Whole Blood 205 mg/dL (60-115)
[2023-08-04] MEDS: levoFLOXacin 750 MG TABLET PO (17:08)
[2023-08-04 20:39] LABS: Glucose, Whole Blood 353 mg/dL (60-115)
[2023-08-04] MEDS: Aspirin Enteric Coated 81 MG TABLET.DR PO (21:03)
[2023-08-04] MEDS: Atorvastatin Calcium 40 MG TABLET PO (21:03)
[2023-08-04] MEDS: Tamsulosin HCL 0.4 MG CAPSULE PO (21:03)
[2023-08-05] VITALS (9 sets, daily range): BP systolic 107–152; BP diastolic 58–90; PULSE 63–93; RESP 16–20; TEMP 36.3–36.7; O2SAT 90–95
[2023-08-05] MEDS: methylPREDNISolone Sod Succ 40 MG/ML VIAL IVPUSH (05:00)
[2023-08-05] MEDS: Omeprazole 20 MG CAPSULE.DR PO (05:00)
[2023-08-05] MEDS: Clindamycin HCL 150 MG CAPSULE PO ×2 (05:00→13:01)
[2023-08-05 06:58] LABS: Glucose, Whole Blood 216 mg/dL (60-115)
[2023-08-05] MEDS: Fluticasone/Umeclidinium/Vilanterol 200/62.5/25 BLST.W.DEV 1 PUFF INHALE (07:58)
[2023-08-05] MEDS: Albuterol/Iprat 2.5/0.5MG 3 ML AMPUL.NEB INHALE ×4 (07:59→19:15)
[2023-08-05] MEDS: Cholestyramine (With Sugar) 4 GM POWD.PACK PO (09:19)
[2023-08-05] MEDS: Theophylline Anhydrous ER 400 MG TAB.ER.24H PO (09:20)
[2023-08-05] MEDS: methIMAzole 5 MG TABLET PO (09:20)
[2023-08-05] MEDS: Heparin Sodium,Porcine 5,000 UNIT/ML VIAL 5000 UNIT SUBCUT ×2 (09:20→17:18)
[2023-08-05] MEDS: lisinopriL 10 MG TABLET PO (09:20)
[2023-08-05] MEDS: Isosorbide Mononitrate 60 MG TAB.ER.24H PO (09:20)
[2023-08-05] MEDS: FLUoxetine HCl 20 MG CAPSULE 40 MG PO (09:20)
[2023-08-05] MEDS: Gabapentin 600 MG TABLET PO ×3 (09:20→21:39)
[2023-08-05] MEDS: Metoprolol Succinate ER 25 MG TAB.ER.24H PO (09:20)
[2023-08-05] MEDS: 0.9 % Sodium Chloride Flush 3 ML SYRINGE IVFLUSH ×3 (09:21→21:40)
[2023-08-05] MEDS: Insulin Lispro 100 UNIT/ML 3 ML VIAL SUBCUT ×4 (09:22→21:39)
--- NOTE | 2023-08-05 09:41 | MHC.CM.PN ---
Addendum entered by Shari Putnma RN 08/05/23 11:39: cm has received no response from [facility], pt now agreeable to [facility] has requested they go for [facility], [facility] 08/05/23 delivered to bedside. Original Note: EMR REVIEWED, CM MET W/PT TO DISCUSS DISPO [facility] IS NOT CONTRACTED W/PT'S INSURANCE, [facility] AND [facility] REVIEWING, CM DID CONTACT [facility] AND [facility] WILL CHECK IN WITH FACILITY. PT REPORTS HE WANTS [facility] AND THAT IF HE DOES NOT GET IN THERE HE PREFERS TO GO HOME, [facility] REFERRAL PLACED.
[2023-08-05 10:56] LABS: Glucose, Whole Blood 294 mg/dL (60-115)
[2023-08-05] MEDS: guaiFENesin DM 600/30 1 TAB TAB.ER.12H 2 TAB PO ×2 (13:01→21:39)
--- NOTE | 2023-08-05 13:17 | HO.PM.IMPN ---
Subjective Subjective Date of Service: 08/05/23 Review of Systems Follow up acute hypoxic resp failure, copd, pneumonitis feeling better still with some dysphagia Physical Exam Vital Signs: Vital Signs: Last Vital Signs Temp 97.4 F 08/05/23 07:12 Pulse 74 08/05/23 11:45 Resp 18 08/05/23 11:45 BP 150/90 H 08/05/23 07:12 Pulse Ox 94 08/05/23 07:12 O2 Del Method Oxymask 08/05/23 07:12 O2 Flow Rate 2 08/05/23 07:12 FiO2 39 08/02/23 19:45 BMI result Body Mass Index 34.0 Appearing in no acute distress lung sounds are clear to auscultation heart regular rate rhythm, clear S1, S2 positive bowel sounds, abdomen is soft, nontender neuro patient is alert x3, no focal deficits Objective Data Active Medications Acetaminophen (Acetaminophen 325 Mg Tablet) 650 mg PO Q6H PRN PRN Reason: Pain, Mild (Pain Scale 1-3) Albuterol/Ipratropium (Albuterol/Iprat 2.5/0.5mg 3 Ml Ampul.Neb) 3 ml INHALE RQ4H WHILE AWAKE [facility] Last Admin: 08/05/23 11:44 Dose: 3 ml Documented By: GUS Aspirin (Aspirin Enteric Coated 81 Mg Tablet.) 81 mg PO BEDTIME [facility] Last Admin: 08/04/23 21:03 Dose: 81 mg Documented By: MASSILE Atorvastatin Calcium (Atorvastatin Calcium 40 Mg Tablet) 40 mg PO BEDTIME [facility] Last Admin: 08/04/23 21:03 Dose: 40 mg Documented By: MASSIEL Benzonatate (Benzonatate 100 Mg Capsule) 100 mg PO TID PRN PRN Reason: Cough Last Admin: 08/03/23 02:56 Dose: 100 mg Documented By: JOSÉ LUIS Cholestyramine Resin (Cholestyramine (With Sugar) 4 Gm Powd.Pack) 4 gm PO DAILY [facility] Last Admin: 08/05/23 09:19 Dose: 4 gm Documented By: IMMANUEL Clindamycin HCl (Clindamycin Hcl 150 Mg Capsule) 150 mg PO Q8H [facility] Last Admin: 08/05/23 13:01 Dose: 150 mg Documented By: IMMANUEL Fluoxetine HCl (Fluoxetine Hcl 20 Mg Capsule) 40 mg PO DAILY [facility] Last Admin: 08/05/23 09:20 Dose: 40 mg Documented By: IMMANUEL Fluticasone/Umeclidinium/Vilanterol (Fluticasone/Umeclidinium/Vilanterol 200/62.5/25 Blst.W.Dev) 1 puff INHALE RDAILY [facility] Last Admin: 08/05/23 07:58 Dose: 1 puff Documented By: THOMAS Gabapentin (Gabapentin 600 Mg Tablet) 600 mg PO TID [facility] Last Admin: 08/05/23 09:20 Dose: 600 mg Documented By: IMMANUEL Glucose (Glucose Gel 15 Gm Gel..Gram.) 15 gm PO Q15M PRN; Protocol PRN Reason: per Hypoglycemia Standing Ord. Guaifenesin/Dextromethorphan (Guaifenesin Dm 600/30 1 Tab Tab.Er.12h) 2 tab PO BID [facility] Last Admin: 08/05/23 13:01 Dose: 2 tab Documented By: IMMANUEL Heparin Sodium (Porcine) (Heparin Sodium,Porcine 5,000 Unit/Ml Vial) 5,000 unit SUBCUT Q8H [facility] Last Admin: 08/05/23 09:20 Dose: 5,000 unit Documented By: IMMANUEL Dextrose (D10) 250 mls @ 750 mls/hr IV Q15M PRN PRN Reason: per Hypoglycemia Standing Ord. Insulin Human Lispro (Insulin Lispro 100 Unit/Ml 3 Ml Vial) 0 unit SUBCUT QIDACHS [facility]; Protocol Last Admin: 08/05/23 13:02 Dose: 6 unit Documented By: IMMANUEL Isosorbide Mononitrate (Isosorbide Mononitrate 60 Mg Tab.Er.24h) 60 mg PO DAILY [facility]; Protocol Last Admin: 08/05/23 09:20 Dose: 60 mg Documented By: IMMANUEL Levofloxacin (Levofloxacin 750 Mg Tablet) 750 mg PO Q24H [facility] Last Admin: 08/04/23 17:08 Dose: 750 mg Documented By: MARK Lisinopril (Lisinopril 10 Mg Tablet) 10 mg PO DAILY [facility]; Protocol Last Admin: 08/05/23 09:20 Dose: 10 mg Documented By: IMMANUEL Methimazole (Methimazole 5 Mg Tablet) 5 mg PO DAILY [facility] Last Admin: 08/05/23 09:20 Dose: 5 mg Documented By: IMMANUEL Methylprednisolone Sodium Succinate (Methylprednisolone Sod Succ 40 Mg/Ml Vial) 40 mg IVPUSH Q8H [facility] Last Admin: 08/05/23 05:00 Dose: 40 mg Documented By: SHERMAN Metoprolol Succinate (Metoprolol Succinate Er 25 Mg Tab.Er.24h) 25 mg PO DAILY [facility]; Protocol Last Admin: 08/05/23 09:20 Dose: 25 mg Documented By: IMMANUEL Nitroglycerin (Nitroglycerin 0.4 Mg Tab.Subl) 0.4 mg SUBLINGUAL Q5M PRN PRN Reason: angina Omeprazole (Omeprazole 20 Mg Capsule.Dr) 20 mg PO DAILY@0630 [facility] Last Admin: 08/05/23 05:00 Dose: 20 mg Documented By: SHERMAN Simethicone (Simethicone 80 Mg Tab.Chew) 80 mg PO QID PRN PRN Reason: abdominal distention Sodium Chloride (0.9 % Sodium Chloride Flush 3 Ml Syringe) 3 ml IVFLUSH QSHIFT [facility] Last Admin: 08/05/23 09:21 Dose: 3 ml Documented By: IMMANUEL Tamsulosin HCl (Tamsulosin Hcl 0.4 Mg Capsule) 0.4 mg PO BEDTIME [facility] Last Admin: 08/04/23 21:03 Dose: 0.4 mg Documented By: ANJEL-RIVLA Theophylline (Theophylline Anhydrous Er 400 Mg Tab.Er.24h) 400 mg PO DAILY [facility] Last Admin: 08/05/23 09:20 Dose: 400 mg Documented By: IMMANUEL Labs 07/31/23 05:04 08/02/23 06:13 Labs: Laboratory Results - last 24 hr 08/04/23 08/04/23 08/05/23 15:58 20:35 06:55 POC Glucose 205 H 353 H* 216 H 08/05/23 10:49 POC Glucose 294 H Microbiology Microbiology Results: Microbiology 07/30/23 16:44 Blood Culture - Final Blood - Venous No growth after 5 days. 07/30/23 16:43 Blood Culture - Final Blood - Venous No growth after 5 days. Assessment and Plan (1) Acute exacerbation of chronic obstructive pulmonary disease: Status: Acute (2) Aspiration pneumonitis: Status: Acute (3) Multifocal pneumonia: Status: Acute Plan This is a 68 year old male with history of COPD, diabetes, pulmonary nodules, coronary artery disease hypertension, hyperlipidemia, hypothyroidism who presents to the emergency department with shortness of breath felt to be hypoxic and requiring high-flow supplemental oxygen History of esophageal stricture Enlarged esophagus seen on imaging Barium swallow completed results pending Acute hypoxic respiratory failure secondary to acute exacerbation chronic obstructive pulmonary disease with associated infection bronchiolitis/pneumonitis and entero/rhinovirus Concern for possible microaspiration s/p clindamycin, levaquin (pcn allergy)total 5 days abx RPP + for entero/rhinovirus s/p high-flow supplemental oxygen Continue bronchodilator therapy, IV steroids transitioned to prednisone Continue theophylline. Pulmonology following Home o2 eval> will require 2 liters with ambulation Type 2 diabetes mellitus. Hold metformin and glipizide. Insulin sliding scale. Hyperthyroidism. Continue methimazole and metoprolol Hyperlipidemia. Continue statin. CAD. Continue aspirin, statin, BB, imdur GERD. Continue PPI. BPH. Continue tamsulosin. Essential hypertension. Continue metoprolol and lisinopril. HCTZ on hold mood Continue fluoxetine. DVT prophylaxis: Heparin attending Dr. Guillen Code status: Full DISPO plan for STR needs ongoing hospitalization for hypoxic respiratory failure treatment secondary to COPD, rhinovirus/enterovirus with need for high flow oxygen requiring close monitoring of respiratory status. waiting for safe disposition Quality Stroke Does the patient have a stroke diagnosis?: No VTE Prior VTE?: No VTE Risk Level:: Medical - moderate - high VTE Device Contraindication: Treatment Not Indicated VTE Drug Contraindication: N/A - Med Ordered
--- NOTE | 2023-08-05 13:27 | P.DS_ITS ---
DS: Providers Provider Date of admission: 07/30/23 20:47 Primary care physician: Gonzales Brennan MD Consults: 07/30/23 22:41 Consult to Pulmonology Routine Consulting Provider: [facility] Reason for consultation: Hypoxic respiratory failure, COPD exacerbation Has provider been notified: No DS: Diagnosis Discharge Diagnosis (1) Acute exacerbation of chronic obstructive pulmonary disease: Status: Acute (2) Aspiration pneumonitis: Status: Acute (3) Multifocal pneumonia: Status: Acute DS: Summary Hospital Course Hospital Course: History and physical as per admitting provider. Sean Hinkle is a 68 years old man with past medical history significant for COPD -noncompliant with home oxygen, type 2 diabetes mellitus on oral hypoglycemic agents, hyperthyroidism, hyperlipidemia, CAD and BPH presents to the emergency department complaining of productive cough of greenish sputum and worsening shortness of breath over the last several days. He is also wheezing and anxious. On evaluation patient was respiratory distress, speaking in short sentences and low O2 sats despite receiving supplemental oxygen via Oxymask (3L/min). He did not report chest pain. No acute gastrointestinal genitourinary symptoms reported. In the ED, he was found to have tachypnea and low O2. Is remarkable for leukocytosis of 12.9. Platelets and hemoglobin are normal. Venous gas showed metabolic alkalosis. There are no electrolyte imbalances. There has no lactic acidosis. Troponin and BNP are normal Renal function is normal. There is hyperglycemia, 215. Viral testing for COVID-19, RSV influenza is negative. CXR showed patchy multiple airspace opacity and postsurgical changes in the right lung. Chart review: Chest CT scan (July 27) - interval worsening of airway inflammatory changes with developing of extensive tree-in-bud nodularity in the right lung, consistent with infectious bronchiolitis. There are patchy airspace opacity in both upper lungs consistent with pneumonitis. ED tx: Albuterol 10 mg neb, oxycodone 5 mg magnesium 2 g IV, Solu-Medrol monitoring 5 mg IV, Levaquin 750 mg IV, Tessalon 100 mg p.o., Ativan 1 mg IV. Physical Exam Vital Signs: Vital Signs: Last Vital Signs Temp 97.4 F 08/05/23 07:12 Pulse 74 08/05/23 11:45 Resp 18 08/05/23 11:45 BP 150/90 H 08/05/23 07:12 Pulse Ox 94 08/05/23 07:12 O2 Del Method Oxymask 08/05/23 07:12 O2 Flow Rate 2 08/05/23 07:12 FiO2 39 08/02/23 19:45 BMI result Body Mass Index 34.0 DS: Data Data Completed and Pending Labs on day of discharge: Laboratory Results - last 24 hr 08/04/23 08/04/23 08/05/23 15:58 20:35 06:55 POC Glucose 205 H 353 H* 216 H 08/05/23 10:49 POC Glucose 294 H Discharge Plan Discharge Patient Disposition: Xfer Inpatient Rehab Fac Discharge Diagnosis: Esophageal stricture, history Acute hypoxic respiratory failure COPD exacerbation Bronchiolitis Referrals: Gonzales Brennan MD [Primary Care Provider] - 1 Week Manolo Lucas MD [Physician] - 1 Month Discharge Medications: No Action albuterol sulfate 2.5 mg /3 mL (0.083 %) solution for nebulization 2.5 mg inhalation Q6H PRN (Reason: shortness of breath or wheezing) 30 Days Qty: 180 0RF Citrucel 500 mg tablet 500 mg PO BID Qty: 60 4RF Trelegy Ellipta 200-62.5-25 mcg blister with device 1 ea inhalation DAILY Qty: 60 6RF metoprolol succinate 25 mg tablet extended release 24 hr 25 mg PO QAM Qty: 90 3RF simethicone [Gas Relief (simethicone)] 125 mg capsule 125 mg PO QID PRN (Reason: abdominal distention) nicotine (polacrilex) 4 mg gum 4 mg buccal Q2H PRN (Reason: Nicotine Cravings) cholestyramine-aspartame [Cholestyramine Light] 4 gram powder in packet 4 g PO DAILY Rx Instructions: administer w/meal; avoid other meds within 1hr before or 4-6hr after dose gabapentin 600 mg tablet 600 mg PO TID lisinopril-hydrochlorothiazide 10-12.5 mg tablet 1 tab PO QAM isosorbide mononitrate 60 mg tablet extended release 24 hr 60 mg PO QAM aspirin 81 mg tablet,delayed release (DR/EC) 81 mg PO BEDTIME fluoxetine 40 mg capsule 40 mg PO DAILY atorvastatin 40 mg tablet 40 mg PO BEDTIME methimazole 5 mg tablet 5 mg PO QAM tamsulosin 0.4 mg capsule 0.4 mg PO BEDTIME hydroxyzine HCl 50 mg tablet 50 mg PO BEDTIME metformin 1,000 mg tablet 1,000 mg PO BID nitroglycerin 0.4 mg tablet, sublingual 0.4 mg sublingual Q5M PRN (Reason: angina) glipizide 5 mg tablet extended release 24hr 5 mg PO DAILY albuterol sulfate 90 mcg/actuation HFA aerosol inhaler 2 puff inhalation Q4-6H PRN (Reason: shortness of breath or wheezing) 30 Days Qty: 1 6RF theophylline 400 mg tablet extended release 24 hr 400 mg PO DAILY 30 Days Qty: 30 6RF famotidine 40 mg tablet 40 mg PO BEDTIME Qty: 30 3RF esomeprazole magnesium [Nexium] 40 mg capsule,delayed release(DR/EC) 40 mg PO DAILY Qty: 90 5RF Diet: Advance to usual diet Activity on Discharge: As tolerated Stand Alone Forms: Patient Portal Discharge page Print Language: American Care Plan Goals: You will need 2 L of oxygen via nasal cannula for ambulation Health Concerns: Esophageal stricture, history Acute hypoxic respiratory failure COPD exacerbation Bronchiolitis Plan of Treatment: Follow-up with primary care provider as needed Follow-up with pulmonology in 1 month Take all medications as prescribed Assessment: See discharge summary
--- NOTE | 2023-08-05 14:08 | P.PNPL_ITS ---
Subjective Subjective Date of Service: 08/05/23 Interval history: 68-year-old gentleman with underlying advanced COPD admitted with acute exacerbation secondary to rhinovirus infection, now significantly improved, though requires supplemental oxygen at this time to normal oximetry with exertion. Objective Data Labs 07/31/23 05:04 08/02/23 06:13 Labs: Laboratory Results - last 24 hr 08/04/23 08/04/23 08/05/23 15:58 20:35 06:55 POC Glucose 205 H 353 H* 216 H 08/05/23 10:49 POC Glucose 294 H Microbiology Microbiology Results: Microbiology 07/30/23 16:44 Blood - Venous Blood Culture - Final No growth after 5 days. 07/30/23 16:43 Blood - Venous Blood Culture - Final No growth after 5 days. Physical Exam 2 Vital Signs: Vital Signs: Last Vital Signs Temp 97.4 F 08/05/23 07:12 Pulse 74 08/05/23 11:45 Resp 18 08/05/23 11:45 BP 150/90 H 08/05/23 07:12 Pulse Ox 94 08/05/23 07:12 O2 Del Method Oxymask 08/05/23 07:12 O2 Flow Rate 2 08/05/23 07:12 FiO2 39 08/02/23 19:45 BMI result Body Mass Index 34.0 Const: General: no acute distress, alert and awake Eyes: Sclerae: sclerae normal EOM: EOMs intact bilaterally Neck: Neck: Yes no lymphadenopathy, Yes trachea midline and Yes supple Resp: Effort & Inspection: normal respiratory effort and no respiratory distress Auscultation: clear to auscultation bilaterally Cardio: Rate: regular rate Rhythm: regular rhythm Heart sounds: no gallops, no murmurs and no rubs GI: Palpation (GI): Soft to palpation and Other GI palpation findings present ( Nontender) Auscultation: normal bowel sounds Extrem: General: No clubbing, No cyanosis and Yes edema (Trace bilateral) Procedures Date of Service Date of Service: 08/05/23 Assessment and Plan Assessment and plan (1) Acute exacerbation of chronic obstructive pulmonary disease: Status: Acute (2) Hypoxic respiratory failure: Status: Acute Plan Impression: 68-year-old gentleman with underlying COPD admitted with COPD exacerbation secondary to rhinovirus, now improved significantly, though require supplemental oxygen with exertion. Recommendations: Agree with current medication regimen including theophylline, Trelegy, and prednisone taper. Will schedule office follow-up in approximately 4 weeks after discharge. Time Spent With Patient Time: Total time managing care of this patient today ____ minutes. Progress Note: Quality Stroke Does the patient have a stroke diagnosis?: No
[2023-08-05 16:18] LABS: Glucose, Whole Blood 204 mg/dL (60-115)
[2023-08-05 20:43] LABS: Glucose, Whole Blood 175 mg/dL (60-115)
[2023-08-05] MEDS: Atorvastatin Calcium 40 MG TABLET PO (21:39)
[2023-08-05] MEDS: Tamsulosin HCL 0.4 MG CAPSULE PO (21:39)
[2023-08-05] MEDS: Aspirin Enteric Coated 81 MG TABLET.DR PO (21:39)
[2023-08-06] VITALS (10 sets, daily range): BP systolic 92–152; BP diastolic 52–72; PULSE 63–81; RESP 16–20; TEMP 35.8–36.6; O2SAT 93–98
[2023-08-06] MEDS: Heparin Sodium,Porcine 5,000 UNIT/ML VIAL 5000 UNIT SUBCUT ×4 (01:04→23:25)
[2023-08-06] MEDS: Throat Lozenge, Medicated LOZENGE 1 LOZENGE MUCOUS MEM (01:22)
[2023-08-06] MEDS: Omeprazole 20 MG CAPSULE.DR PO (04:40)
--- NOTE | 2023-08-06 07:00 | CA_ITS ---
Transthoracic Echocardiogram Patient (Last, First, Middle): Sean Hinkle, Gender: Male Date of : 1955 Age: 68 Procedure Date: 08/06/2023 Procedure Type: Transthoracic E[place]ocardiogram [place] [facility] [place]: 170.18 cm Weight: 98.43 kg BSA: 2.09 m2 Heart Rate: 61 bpm BP: 127 / 60 mmHg Rn Wellness: JANETH Referring MD: Haley BELTRAN Symptoms: NSVT Study Quality: Adequate ECG Rhythm: Sinus Conclusions: - Normal left ventricular cavity size. There is mildly increased left ventricular wall thickness. The left ventricular systolic function is low normal. The visually estimated ejection fraction is between 50-55%. - Mildly increased right ventricular cavity size. There is normal right ventricular systolic function. - There is mild dilatation of the ascending aorta measuring 3.50 cm. Findings Left Ventricle Normal left ventricular cavity size. There is mildly increased left ventricular wall thickness. The left ventricular systolic function is low normal. The visually estimated ejection fraction is between 50-55%. There is no evidence of regional wall motion abnormalities. Abnormal diastolic function is noted. Spectral Doppler is indicative of an impaired relaxation filling pattern. E/E prime ratio is between 8 and 15 consistent with indeterminate filling pressures. Right Ventricle Mildly increased right ventricular cavity size. There is normal right ventricular systolic function. Atria The left atrium is likely dilated. Aortic Valve Normal aortic valve structure and function. There is no aortic valve stenosis. There is no aortic valve regurgitation. Mitral Valve The mitral valve appears normal. There is no mitral valve regurgitation. There is no mitral valve stenosis. Pulmonic Valve The pulmonic valve is likely normal. Tricuspid Valve Normal tricuspid valve structure. There is no tricuspid valve regurgitation. Normal right atrial pressure. There is no evidence of pulmonary hypertension. Great Vessels There is mild dilatation of the ascending aorta measuring 3.50 cm. The visualized portions of the pulmonary artery and branches are normal. Venous The inferior vena cava is normal in size and collapses greater than 50% with inspiration. Pericardium/Pleural There is no evidence of pericardial effusion. Measurements 2D Linear Measurements IVSd: 1.35 0.6-0.9/0.6-1.0 cm LVIDd: 5.32 3.9-5.3/4.2-5.9 cm LVIDd Index: 2.55 2.4-3.2/2.2-3.1 cm/m2 LVIDs: 3.24 2.0-3.6 cm LVPWd: 1.17 0.7-1.1 cm LA Diam: 3.60 2.7-3.8/3.0-4.0 cm LAIDs Index: 1.72 1.5-2.3 cm/m2 LV Mass: 344.57 67-162/88-224 g LV Mass Index: 164.87 43-95/49-115 g/m2 LVOT Diam: 2.40 3.0+(-)1.3 cm 2D Systolic Function EF 4C: 48.80 >55% EF 2C: 54.00 >55% EF BiP: 50.30 >55% Mitral Valve MV Pk E: 0.83 MV PK A: 0.93 MV Decel Time: 237.00 E/A: 0.90 E'Lateral: 8.16 E'Medial: 5.55 E/E' Med: 14.90 E/E' Lat: 10.10 PHT: 69.00 MVA PHT: 3.19 Decel [place]: 3.49 Aortic Valve AoV Pk Mario: 1.29 AoV Mn Mario: 0.95 AoV VTI: 0.30 AoV Pk Grad: 7.00 Aov Mn Grad: 4.00 DIONTE Cont.VTI: 3.01 LVOT LVOT Pk Mario: 0.84 LVOT Mn Mario: 0.61 LVOT VTI: 0.20 LVOT Pk Grad: 3.00 LVOT Mn Grad: 2.00 LVOT Diam: 2.40 LVOT Area: 4.52 Diastolic Function MV Pk E: 0.83 MV Pk A: 0.93 E/A: 0.90 E'Medial: 5.55 E/E' Med: 14.90 E' Laterial: 8.16 E/E' Lat: 10.10 Right Ventricle TAPSE (mm): 33.50 TVS' Mario: 15.70 Tricuspid Valve TR Pk Mario: 1.76 TR Pk Grad: 12.00 RA Press: 3.00 RVSP: 15.00 Great Vessels Aorta Sinus of Valsalva: 3.50 2.0-3.5 cm Ao Asc: 3.50 2.1-3.4 cm Pulmonary Valve PV Pk Mario: 0.84 Peak PV Grad: 3.00 Updated in Other Vendor System with Status of Final Waldemar Rogers MD electronically signed on 08/06/2023 5:04:22 PM with status of Final
[2023-08-06 07:24] LABS: Glucose, Whole Blood 122 mg/dL (60-115)
[2023-08-06] MEDS: Fluticasone/Umeclidinium/Vilanterol 200/62.5/25 BLST.W.DEV 1 PUFF INHALE (07:31)
[2023-08-06] MEDS: Albuterol/Iprat 2.5/0.5MG 3 ML AMPUL.NEB INHALE ×4 (07:31→19:42)
[2023-08-06 07:50] LABS: Glucose, Whole Blood 123 mg/dL (60-115)
[2023-08-06] MEDS: Gabapentin 600 MG TABLET PO ×3 (08:54→20:29)
[2023-08-06] MEDS: FLUoxetine HCl 20 MG CAPSULE 40 MG PO (08:54)
[2023-08-06] MEDS: Cholestyramine (With Sugar) 4 GM POWD.PACK PO (08:54)
[2023-08-06] MEDS: Theophylline Anhydrous ER 400 MG TAB.ER.24H PO (08:54)
[2023-08-06] MEDS: lisinopriL 10 MG TABLET PO (08:55)
[2023-08-06] MEDS: predniSONE 20 MG TABLET 40 MG PO (08:55)
[2023-08-06] MEDS: Isosorbide Mononitrate 60 MG TAB.ER.24H PO (08:56)
[2023-08-06] MEDS: methIMAzole 5 MG TABLET PO (08:56)
[2023-08-06] MEDS: 0.9 % Sodium Chloride Flush 3 ML SYRINGE IVFLUSH ×3 (08:57→20:30)
[2023-08-06] MEDS: guaiFENesin DM 600/30 1 TAB TAB.ER.12H 2 TAB PO ×2 (09:06→20:29)
[2023-08-06] MEDS: Metoprolol Succinate ER 25 MG TAB.ER.24H PO (09:12)
[2023-08-06 11:25] LABS: Glucose, Whole Blood 172 mg/dL (60-115)
[2023-08-06 13:05] LABS: Anion Gap 12 (12-20); Blood Urea Nitrogen 35 mg/dL (9-16); Calcium 8.8 mg/dL (8.4-10.2); Carbon Dioxide 30 mmol/L (22-29); Chloride 97 mmol/L (96-108); Creatinine Clr Calc Pharmacy 70.2; Estimated Glomerular Filt Rate > 60; Glucose Random 188 mg/dL (60-115); Magnesium 2.2 mg/dL (1.6-2.6); Potassium 5.6 mmol/L (3.3-5.1); Sodium 133 mmol/L (135-145)
--- NOTE | 2023-08-06 14:41 | P.PNIM_ITS ---
Subjective Subjective Date of Service: 08/06/23 Interval History: seen and examined this morning follow up for respiratory failure respiratory status better, still with productive cough Constitutional Constitutional: Denies chills and Denies fever(s) Cardiovascular Cardiovascular: Denies dyspnea Respiratory Respiratory: Reports cough and Denies dyspnea Gastrointestinal Gastrointestinal: Denies abdominal pain Physical Exam 2 Vital Signs: Vital Signs: Last Vital Signs Temp 96.5 F L 08/06/23 11:14 Pulse 71 08/06/23 11:27 Resp 20 08/06/23 11:27 BP 92/52 L 08/06/23 11:14 Pulse Ox 95 08/06/23 11:14 O2 Del Method Nasal Cannula 08/06/23 11:14 O2 Flow Rate 2 08/06/23 11:14 FiO2 39 08/02/23 19:45 BMI result Body Mass Index 34.0 Const: General: cooperative, comfortable, alert and awake Nutritional Appearance: overweight Orientation/consciousness: patient oriented x3 Resp: Effort & Inspection: normal respiratory effort, able to speak in complete sentences, no respiratory distress and no use of accessory muscles Cardio: Rate: regular rate GI: Inspection: No distended Palpation (GI): Soft to palpation and nontender Neuro: General: patient oriented x3, moves all extremities and CN's II-XI intact bilaterally Extrem: General: Yes no pedal edema Objective Data Active Medications Acetaminophen (Acetaminophen 325 Mg Tablet) 650 mg PO Q6H PRN PRN Reason: Pain, Mild (Pain Scale 1-3) Albuterol/Ipratropium (Albuterol/Iprat 2.5/0.5mg 3 Ml Ampul.Neb) 3 ml INHALE RQ4H WHILE AWAKE [facility] Last Admin: 08/06/23 11:25 Dose: 3 ml Documented By: ELISEO Aspirin (Aspirin Enteric Coated 81 Mg Tablet.) 81 mg PO BEDTIME [facility] Last Admin: 08/05/23 21:39 Dose: 81 mg Documented By: BALJIT Atorvastatin Calcium (Atorvastatin Calcium 40 Mg Tablet) 40 mg PO BEDTIME [facility] Last Admin: 08/05/23 21:39 Dose: 40 mg Documented By: BALJIT Benzocaine (Throat Lozenge, Medicated Lozenge) 1 lozenge MUCOUS MEM Q2H PRN PRN Reason: Sore Throat Last Admin: 08/06/23 01:22 Dose: 1 lozenge Documented By: BALJIT Benzonatate (Benzonatate 100 Mg Capsule) 100 mg PO TID PRN PRN Reason: Cough Last Admin: 08/03/23 02:56 Dose: 100 mg Documented By: JOSÉ LUIS Cholestyramine Resin (Cholestyramine (With Sugar) 4 Gm Powd.Pack) 4 gm PO DAILY [facility] Last Admin: 08/06/23 08:54 Dose: 4 gm Documented By: KJ Fluoxetine HCl (Fluoxetine Hcl 20 Mg Capsule) 40 mg PO DAILY [facility] Last Admin: 08/06/23 08:54 Dose: 40 mg Documented By: KJ Fluticasone/Umeclidinium/Vilanterol (Fluticasone/Umeclidinium/Vilanterol 200/62.5/25 Blst.W.Dev) 1 puff INHALE RDAILY [facility] Last Admin: 08/06/23 07:31 Dose: 1 puff Documented By: ELISEO Gabapentin (Gabapentin 600 Mg Tablet) 600 mg PO TID [facility] Last Admin: 08/06/23 08:54 Dose: 600 mg Documented By: KJ Glucose (Glucose Gel 15 Gm Gel..Gram.) 15 gm PO Q15M PRN; Protocol PRN Reason: per Hypoglycemia Standing Ord. Guaifenesin/Dextromethorphan (Guaifenesin Dm 600/30 1 Tab Tab.Er.12h) 2 tab PO BID [facility] Last Admin: 08/06/23 09:06 Dose: 2 tab Documented By: KJ Heparin Sodium (Porcine) (Heparin Sodium,Porcine 5,000 Unit/Ml Vial) 5,000 unit SUBCUT Q8H [facility] Last Admin: 08/06/23 08:56 Dose: 5,000 unit Documented By: KJ Dextrose (D10) 250 mls @ 750 mls/hr IV Q15M PRN PRN Reason: per Hypoglycemia Standing Ord. Insulin Human Lispro (Insulin Lispro 100 Unit/Ml 3 Ml Vial) 0 unit SUBCUT QIDACHS [facility]; Protocol Last Admin: 08/06/23 08:35 Dose: Not Given Documented By: KJ Non-Admin Reason: No Insulin Coverage Isosorbide Mononitrate (Isosorbide Mononitrate 60 Mg Tab.Er.24h) 60 mg PO DAILY [facility]; Protocol Last Admin: 08/06/23 08:56 Dose: 60 mg Documented By: KJ Lisinopril (Lisinopril 10 Mg Tablet) 10 mg PO DAILY [facility]; Protocol Last Admin: 08/06/23 08:55 Dose: 10 mg Documented By: KJ Methimazole (Methimazole 5 Mg Tablet) 5 mg PO DAILY [facility] Last Admin: 08/06/23 08:56 Dose: 5 mg Documented By: KJ Metoprolol Succinate (Metoprolol Succinate Er 25 Mg Tab.Er.24h) 25 mg PO DAILY [facility]; Protocol Last Admin: 08/06/23 09:12 Dose: 25 mg Documented By: KJ Nitroglycerin (Nitroglycerin 0.4 Mg Tab.Subl) 0.4 mg SUBLINGUAL Q5M PRN PRN Reason: angina Omeprazole (Omeprazole 20 Mg Capsule.Dr) 20 mg PO DAILY@0630 [facility] Last Admin: 08/06/23 04:40 Dose: 20 mg Documented By: BALJIT Prednisone (Prednisone 20 Mg Tablet) 40 mg PO DAILY [facility] Last Admin: 08/06/23 08:55 Dose: 40 mg Documented By: KJ Simethicone (Simethicone 80 Mg Tab.Chew) 80 mg PO QID PRN PRN Reason: abdominal distention Sodium Chloride (0.9 % Sodium Chloride Flush 3 Ml Syringe) 3 ml IVFLUSH QSHIFT [facility] Last Admin: 08/06/23 08:57 Dose: 3 ml Documented By: KJ Tamsulosin HCl (Tamsulosin Hcl 0.4 Mg Capsule) 0.4 mg PO BEDTIME [facility] Last Admin: 08/05/23 21:39 Dose: 0.4 mg Documented By: BALJIT Theophylline (Theophylline Anhydrous Er 400 Mg Tab.Er.24h) 400 mg PO DAILY [facility] Last Admin: 08/06/23 08:54 Dose: 400 mg Documented By: KJ Labs 07/31/23 05:04 08/06/23 12:33 Labs: Laboratory Results - last 24 hr 08/05/23 08/05/23 08/06/23 16:14 20:38 07:14 Anion Gap Estim Creat Clear Calc Estimated GFR POC Glucose 204 H 175 H 122 H Random Glucose Calcium Magnesium 08/06/23 08/06/23 08/06/23 07:43 11:07 12:33 Anion Gap 12 Estim Creat Clear Calc 70.2 Estimated GFR > 60 POC Glucose 123 H 172 H Random Glucose 188 H Calcium 8.8 Magnesium 2.2 Assessment and Plan (1) Respiratory failure: Status: Acute Plan This is a 68 year old male with history of COPD, diabetes, pulmonary nodules, coronary artery disease hypertension, hyperlipidemia, hypothyroidism who presents to the emergency department with shortness of breath felt to be hypoxic and requiring high-flow supplemental oxygen History of esophageal stricture Enlarged esophagus seen on imaging Barium swallow completed results with achalasia versus stricture and ?gastritis ?Esophagitis seen by GI - plan for EGD, NPO at midnight continue omeprazole NSVT mag wnl echo pending, if abnormal will consult cardiology hyperkalemia hold lisinopril lokelma repeat BMP in am Acute hypoxic respiratory failure secondary to acute exacerbation chronic obstructive pulmonary disease with associated infection bronchiolitis/pneumonitis and entero/rhinovirus Concern for possible microaspiration s/p course of clindamycin, levaquin (pcn allergy) RPP + for entero/rhinovirus s/p high-flow supplemental oxygen, now on 2L Continue bronchodilator therapy, IV steroids transitioned to prednisone Continue theophylline. Pulmonology following Home o2 eval> will require 2 liters with ambulation Type 2 diabetes mellitus. Hold metformin and glipizide. Insulin sliding scale. Hyperthyroidism. Continue methimazole and metoprolol Hyperlipidemia. Continue statin. CAD. Continue aspirin, statin, BB, imdur GERD. Continue PPI. BPH. Continue tamsulosin. Essential hypertension. Continue metoprolol, hold lisinopril for hyperkalemia HCTZ on hold mood Continue fluoxetine. DVT prophylaxis: Heparin attending Dr. Guillen Code status: Full DISPO plan for STR needs ongoing hospitalization for hypoxic respiratory failure treatment secondary to COPD, rhinovirus/enterovirus and abnormal barium swallow requiring EGD Quality Stroke Does the patient have a stroke diagnosis?: No VTE Prior VTE?: No VTE Risk Level:: Medical - moderate - high VTE Device Contraindication: Treatment Not Indicated VTE Drug Contraindication: N/A - Med Ordered
--- NOTE | 2023-08-06 14:50 | MHC.CM.PN ---
CM MET WITH PT WHO IS AGREEABLE TO STR AT [facility] PENDING INSURANCE AUTH. CM CONTINUES TO AWAIT APPROVAL FROM [employer] FROM CENTER.
--- NOTE | 2023-08-06 14:57 | PM.GICN ---
History of Present Illness Data of Consult Service Date: 08/06/23 Primary Care Provider: Gonzales Brennan MD [facility] Reason for consult: Abnormal barium swallow 68 YM with COPD -noncompliant with home oxygen, type 2 diabetes mellitus on oral hypoglycemic agents, hyperthyroidism, hyperlipidemia, CAD and BPH admitted to [facility] on 07/30/23 with productive cough, worsening shortness of breath, with wheezing and anxiety. Pt noted to be in respiratory distress with low O2 sats despite receiving supplemental oxygen via Oxymask (3L/min). GI consulted for evaluation of dysphagia and abnormal barium swallow. Viral testing for COVID-19, RSV influenza was negative. CXR showed patchy multiple airspace opacity and postsurgical changes in the right lung. Pt reports dysphagia to solids and liquids for the past several months. Food goes down and comes back up. Pt notes symptoms with intake of solids, liquids and pills. Patient reports he has to spit up extra food at times. He is eating a soft diet - macaroni, cheese, mashed potatoes and has been avoiding meats. Patient reports symptoms of heartburn when he takes spicy foods Patient complains of bloating and denies significant abdominal pain or constipation. He has 4 soft to watery BMs daily Pt admits to smoking 7 cigarettes daily and denies alcohol abuse. 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 Pt lives with his ex- and has 5 daughters and 1 son. Family hx is positive for colon polyps in his Dad and a daughter. 08/05/23 BARIUM SWALLOW SHOWED: 1. Premature filling of the vallecula and piriform sinuses. No laryngeal penetration or tracheal aspiration was seen. 2. Moderate severe narrowing of the GE junction resulting in a significant of contrast emptying into the stomach. Etiology includes achalasia versus a benign stricture. Achalasia is suspected given appearance. Granular mucosa within the esophagus is likely attributable to erosive esophagitis. Recommend correlation with EGD 3. Limited evaluation of the gastric mucosa due to inability to lie flat given the significant delay of contrast emptying from the esophagus into the stomach and concern for aspiration and examination. There appears to be some degree of renal fold thickening suggesting gastritis. 4. Esophageal dysmotility. 02/06/23 EGD WITH ESOPHAGEAL BALLOON DILATION WAS PERFORMED: Esophagus: GE junction at 40 cms. Irregular Z line - biopsied to check for Herrera's. Mildly tortuous esophagus without stricture or ring Mid size upper endoscope passed through the GE junction without resistance Balloon dilation was performed with a 20 mm (60 F) CRE balloon x 60 seconds Stomach: Mild gastric erythema - Biopsies were obtained. A 15 to 18 mm area of erythema with multiple 2-3 mm ulcers in the antrum - biopsied. Grade 2 flap valve on retroflexed examination of the cardia. Duodenum: Prominent folds/nodule in the apex of the bulb - benign on past biopsies. Normal descending duodenum - Biopsies were obtained to check for celiac sprue Intervention: Biopsies and esophageal balloon dilation as noted above Review of Systems Constitutional: Constitutional: Reports fatigue ENT: Reports system reviewed and no additional complaints, except as documented and Reports dysphagia Cardiovascular: Cardiovascular: Denies chest pain and Reports dyspnea Respiratory: Respiratory: Reports chest congestion, Reports cough, Denies hemoptysis, Reports dyspnea and Reports wheezing Gastrointestinal: Gastrointestinal: Reports dysphagia, Reports dyspepsia and Reports other (regurgitation) Musculoskeletal: Musculoskeletal: Reports no additional musculoskeletal complaints Psychiatric: Psychiatric: Reports anxiety Endocrine: Endocrine: Reports fatigue Hematologic/Lymphatic: Hematologic/Lymphatic: Denies lymphadenopathy Allergic/Immunologic: Allergic/Immunologic: Reports wheezing PMFSH Past Medical History Medical History (Updated 08/08/23 @ 09:45 by Manolo Lucas MD) Dysphagia Tubular adenoma Tubular adenoma IBS (irritable bowel syndrome) Personal history of nicotine dependence Diabetes mellitus type 2, controlled Tubular adenoma of colon (~2019) GERD (gastroesophageal reflux disease) H/O benign carcinoid tumor Cough Back pain Anxiety and depression Lung nodule BPH (benign prostatic hyperplasia) Hyperthyroidism Left adrenal mass HLD (hyperlipidemia) CAD (coronary artery disease) Chest pain Obesity HTN (hypertension) COPD (chronic obstructive pulmonary disease) Family History Family History Father Cancer Mother Lung cancer Brother Heart attack Surgical History Surgical History History of total adrenalectomy History of colonoscopy History of lithotripsy (~2014) History of bilateral inguinal hernia repair (~2014) History of esophagogastroduodenoscopy (EGD) History of prostate surgery (~2017) History of cholecystectomy (~2019) History of cardiac cath (~2010) Social History Social History Household Members Other:: Pt anxious and unable to respond at this time Do you presently have visiting nurse or other home services: Yes ([facility]) Alcohol intake: never Comment: Patient refusing all alarms Patient Tobacco Use Status: Former Tobacco user Quit Date: 3 weeks Tobacco use type: Cigarette Cigarette Packs Per Day: 0.5 Cigarettes Per Day: 10.0 Years Smoked: 50 Use of substances other than those prescribed or required for medical reasons: No Substance Use Type: Marijuana Are you DNR?: No Advance Directives: No Advance Directives Information Provided: Yes Advance Directives Date on File: 02/09/20 service: No Meds Allergies Allergy/AdvReac Type Severity Reaction Status Date / Time Penicillins [PENICILLINS] Allergy Severe THROAT Verified 07/30/23 16:35 SWELLING penicillin V Allergy Unknown anaphylaxis Verified 07/30/23 16:35 Active Medications: Current Medications Acetaminophen (Acetaminophen 325 Mg Tablet) 650 mg PO Q6H PRN PRN Reason: Pain, Mild (Pain Scale 1-3) Albuterol/Ipratropium (Albuterol/Iprat 2.5/0.5mg 3 Ml Ampul.Neb) 3 ml INHALE RQ4H WHILE AWAKE [facility] Last Admin: 08/06/23 11:25 Dose: 3 ml Aspirin (Aspirin Enteric Coated 81 Mg Tablet.Dr) 81 mg PO BEDTIME SHAHRZAD Last Admin: 08/05/23 21:39 Dose: 81 mg Atorvastatin Calcium (Atorvastatin Calcium 40 Mg Tablet) 40 mg PO BEDTIME SHAHRZAD Last Admin: 08/05/23 21:39 Dose: 40 mg Benzocaine (Throat Lozenge, Medicated Lozenge) 1 lozenge MUCOUS MEM Q2H PRN PRN Reason: Sore Throat Last Admin: 08/06/23 01:22 Dose: 1 lozenge Benzonatate (Benzonatate 100 Mg Capsule) 100 mg PO TID PRN PRN Reason: Cough Last Admin: 08/03/23 02:56 Dose: 100 mg Cholestyramine Resin (Cholestyramine (With Sugar) 4 Gm Powd.Pack) 4 gm PO DAILY SHAHRZAD Last Admin: 08/06/23 08:54 Dose: 4 gm Fluoxetine HCl (Fluoxetine Hcl 20 Mg Capsule) 40 mg PO DAILY SHAHRZAD Last Admin: 08/06/23 08:54 Dose: 40 mg Fluticasone/Umeclidinium/Vilanterol (Fluticasone/Umeclidinium/Vilanterol 200/62.5/25 Blst.W.Dev) 1 puff INHALE RDAILY [facility] Last Admin: 08/06/23 07:31 Dose: 1 puff Gabapentin (Gabapentin 600 Mg Tablet) 600 mg PO TID [facility] Last Admin: 08/06/23 08:54 Dose: 600 mg Glucose (Glucose Gel 15 Gm Gel..Gram.) 15 gm PO Q15M PRN; Protocol PRN Reason: per Hypoglycemia Standing Ord. Guaifenesin/Dextromethorphan (Guaifenesin Dm 600/30 1 Tab Tab.Er.12h) 2 tab PO BID [facility] Last Admin: 08/06/23 09:06 Dose: 2 tab Heparin Sodium (Porcine) (Heparin Sodium,Porcine 5,000 Unit/Ml Vial) 5,000 unit SUBCUT Q8H [facility] Last Admin: 08/06/23 08:56 Dose: 5,000 unit Dextrose (D10) 250 mls @ 750 mls/hr IV Q15M PRN PRN Reason: per Hypoglycemia Standing Ord. Insulin Human Lispro (Insulin Lispro 100 Unit/Ml 3 Ml Vial) 0 unit SUBCUT QIDACHS [facility]; Protocol Last Admin: 08/06/23 08:35 Dose: Not Given Isosorbide Mononitrate (Isosorbide Mononitrate 60 Mg Tab.Er.24h) 60 mg PO DAILY [facility]; Protocol Last Admin: 08/06/23 08:56 Dose: 60 mg Lisinopril (Lisinopril 10 Mg Tablet) 10 mg PO DAILY [facility]; Protocol Last Admin: 08/06/23 08:55 Dose: 10 mg Methimazole (Methimazole 5 Mg Tablet) 5 mg PO DAILY [facility] Last Admin: 08/06/23 08:56 Dose: 5 mg Metoprolol Succinate (Metoprolol Succinate Er 25 Mg Tab.Er.24h) 25 mg PO DAILY [facility]; Protocol Last Admin: 08/06/23 09:12 Dose: 25 mg Nitroglycerin (Nitroglycerin 0.4 Mg Tab.Subl) 0.4 mg SUBLINGUAL Q5M PRN PRN Reason: angina Omeprazole (Omeprazole 20 Mg Capsule.Dr) 20 mg PO DAILY@0630 [facility] Last Admin: 08/06/23 04:40 Dose: 20 mg Prednisone (Prednisone 20 Mg Tablet) 40 mg PO DAILY [facility] Last Admin: 08/06/23 08:55 Dose: 40 mg Simethicone (Simethicone 80 Mg Tab.Chew) 80 mg PO QID PRN PRN Reason: abdominal distention Sodium Chloride (0.9 % Sodium Chloride Flush 3 Ml Syringe) 3 ml IVFLUSH QSHIFT [facility] Last Admin: 08/06/23 08:57 Dose: 3 ml Tamsulosin HCl (Tamsulosin Hcl 0.4 Mg Capsule) 0.4 mg PO BEDTIME [facility] Last Admin: 08/05/23 21:39 Dose: 0.4 mg Theophylline (Theophylline Anhydrous Er 400 Mg Tab.Er.24h) 400 mg PO DAILY [facility] Last Admin: 08/06/23 08:54 Dose: 400 mg Home Medications ?Medication ?Instructions ?Recorded ?Confirmed ?Last Taken ?Type aspirin 81 mg tablet,delayed 81 mg PO BEDTIME 03/15/20 07/30/23 07/29/23 History release atorvastatin 40 mg tablet 40 mg PO BEDTIME 03/15/20 07/30/23 07/29/23 History fluoxetine 40 mg capsule 40 mg PO DAILY 03/15/20 07/30/23 07/30/23 History hydroxyzine HCl 50 mg tablet 50 mg PO BEDTIME 03/15/20 07/30/23 07/29/23 History isosorbide mononitrate 60 mg 60 mg PO QAM 03/15/20 07/30/23 07/30/23 History tablet,extended release 24 hr lisinopril 10 1 tab PO QAM 03/15/20 07/30/23 07/30/23 History mg-hydrochlorothiazide 12.5 mg tablet methimazole 5 mg tablet 5 mg PO QAM 03/15/20 07/30/23 07/30/23 History tamsulosin 0.4 mg capsule 0.4 mg PO BEDTIME 03/15/20 07/30/23 07/29/23 History gabapentin 600 mg tablet 600 mg PO TID 06/05/20 07/30/23 07/30/23 History metformin 1,000 mg tablet 1,000 mg PO BID 12/13/20 07/30/23 07/30/23 History nitroglycerin 0.4 mg sublingual 0.4 mg sublingual Q5M PRN angina 12/13/20 07/30/23 Unknown History tablet glipizide 5 mg tablet, extended 5 mg PO DAILY 07/10/22 07/30/23 07/30/23 History release 24 hr cholestyramine-aspartame 4 gram 4 g PO DAILY 07/30/23 07/30/23 07/30/23 History oral powder for susp in a packet (Cholestyramine Light) nicotine (polacrilex) 4 mg gum 4 mg buccal Q2H PRN Nicotine 07/30/23 07/30/23 Unknown History Cravings simethicone 125 mg capsule (Gas 125 mg PO QID PRN abdominal 07/30/23 07/30/23 Unknown History Relief (simethicone)) distention Physical Exam Vital Signs: Vital Signs: Last Vital Signs Temp 96.5 F L 08/06/23 11:14 Pulse 71 08/06/23 11:27 Resp 20 08/06/23 11:27 BP 92/52 L 08/06/23 11:14 Pulse Ox 95 08/06/23 11:14 O2 Del Method Nasal Cannula 08/06/23 11:14 O2 Flow Rate 2 08/06/23 11:14 FiO2 39 08/02/23 19:45 BMI result Body Mass Index 34.0 Const: General: cooperative, comfortable, alert and awake Nutritional Appearance: overweight Orientation/consciousness: patient oriented x3 Resp: Effort & Inspection: normal respiratory effort, able to speak in complete sentences, no respiratory distress and no use of accessory muscles Cardio: Rate: regular rate GI: Inspection: No distended Palpation (GI): Soft to palpation and nontender Neuro: General: patient oriented x3, moves all extremities and CN's II-XI intact bilaterally Extrem: General: Yes no pedal edema Results Labs 07/31/23 05:04 08/07/23 10:42 Labs: BMP 08/06/23 12:33 Sodium 133 L Potassium 5.6 H Chloride 97 Carbon Dioxide 30 H BUN 35 H Creatinine 1.11 Calcium 8.8 Microbiology Microbiology Results: Microbiology 07/30/23 16:44 Blood - Venous Blood Culture - Final No growth after 5 days. 07/30/23 16:43 Blood - Venous Blood Culture - Final No growth after 5 days. Assessment and Plan (1) Dysphagia: Qualifiers: Dysphagia type: unspecified Qualified Code(s): R13.10 - Dysphagia, unspecified Status: Acute (2) Esophageal stricture: Status: Acute Plan 68 YM with COPD -noncompliant with home oxygen, type 2 diabetes mellitus on oral hypoglycemic agents, hyperthyroidism, hyperlipidemia, CAD and BPH admitted to [facility] on 07/30/23 with productive cough, worsening shortness of breath, with wheezing and anxiety. GI consulted for evaluation of dysphagia and abnormal barium swallow showing moderate to severe narrowing of the GE junction concerning for esophageal stricture versus achalasia. RECOMMENDATIONS: 1. Switch from PO to IV PPI twice daily. 2. Pt scheduled tentatively for EGD with esophageal dilation on 08/07/23 (awaiting Echo results) EGD procedure and potential complications including bleeding, perforation, reaction to anesthetic and aspiration were reviewed with the patient. 08/07/23 EGD postponed by anesthesia due to pt's respiratory status Rescheduled for 08/14/23 at 12 pm as an out patient. ADDENDUM: HOSPITAL COURSE: Patient was admitted for acute hypoxic respiratory failure secondary to acute exacerbation of chronic obstructive pulmonary disease with associated infection bronchiolitis/pneumonitis and entero/rhino virus. Patient was treated with course of clindamycin and Levaquin. He was weaned off of high-flow, at time of discharge home O2 eval was performed and patient did not require any home oxygen he is tolerating room air. He was continued on bronchodilators and IV steroids and completed course. Is also continued on theophylline. For diabetes his oral medications were held and he was put on insulin sliding scale. For hypothyroidism was continue on Tapazole and metoprolol. For hyperlipidemia was continue on statin. For coronary artery disease he was continue aspirin, statin, beta-song, Imdur. For GERD was continued on PPI for BPH was continued on Flomax. For hypertension was continued on metoprolol, his lisinopril was held due to hyperkalemia but can be resumed on discharge. Should recheck BMP in about 1 week. For mood disorder was continue on fluoxetine. Patient is feeling better, initially plan for short-term rehab, however, patient is ambulation improved and will be discharged home Procedures Date of Service Date of Service: 08/15/23
[2023-08-06] MEDS: Sodium Zirconium Cyclosilicate 10 GM POWD.PACK PO (15:16)
[2023-08-06] MEDS: Insulin Lispro 100 UNIT/ML 3 ML VIAL SUBCUT ×2 (15:25→16:24)
[2023-08-06 16:30] LABS: Glucose, Whole Blood 281 mg/dL (60-115)
[2023-08-06] MEDS: Pantoprazole Sodium 40 MG/10 ML VIAL IVPUSH (18:31)
[2023-08-06 19:53] LABS: Glucose, Whole Blood 147 mg/dL (60-115)
[2023-08-06] MEDS: Atorvastatin Calcium 40 MG TABLET PO (20:29)
[2023-08-06] MEDS: Aspirin Enteric Coated 81 MG TABLET.DR PO (20:29)
[2023-08-06] MEDS: Tamsulosin HCL 0.4 MG CAPSULE PO (20:30)
[2023-08-07 04:00] VITALS: BP 118/63; PULSE 68; RESP 16; TEMP 36.3; O2SAT 94
[2023-08-07] MEDS: Pantoprazole Sodium 40 MG/10 ML VIAL IVPUSH ×2 (05:31→16:23)
[2023-08-07 07:24] VITALS: BP 124/69; PULSE 63; RESP 18; TEMP 37.2; O2SAT 94
[2023-08-07 07:45] LABS: Glucose, Whole Blood 143 mg/dL (60-115)
[2023-08-07] MEDS: Fluticasone/Umeclidinium/Vilanterol 200/62.5/25 BLST.W.DEV 1 PUFF INHALE (07:50)
[2023-08-07 07:53] VITALS: PULSE 64; RESP 18; O2SAT 94
[2023-08-07] MEDS: Theophylline Anhydrous ER 400 MG TAB.ER.24H PO (08:58)
[2023-08-07] MEDS: Metoprolol Succinate ER 25 MG TAB.ER.24H PO (08:58)
[2023-08-07] MEDS: Gabapentin 600 MG TABLET PO ×3 (08:58→22:50)
[2023-08-07] MEDS: methIMAzole 5 MG TABLET PO (08:58)
[2023-08-07] MEDS: predniSONE 20 MG TABLET 40 MG PO (08:58)
[2023-08-07] MEDS: 0.9 % Sodium Chloride Flush 3 ML SYRINGE IVFLUSH ×3 (08:59→22:52)
[2023-08-07] MEDS: Isosorbide Mononitrate 60 MG TAB.ER.24H PO (08:59)
[2023-08-07] MEDS: FLUoxetine HCl 20 MG CAPSULE 40 MG PO (08:59)
[2023-08-07 11:18] LABS: Anion Gap 11 (12-20); Blood Urea Nitrogen 28 mg/dL (9-16); Calcium 8.7 mg/dL (8.4-10.2); Carbon Dioxide 32 mmol/L (22-29); Chloride 98 mmol/L (96-108); Creatinine Clr Calc Pharmacy 89.6; Estimated Glomerular Filt Rate > 60; Glucose Random 106 mg/dL (60-115); Potassium 4.4 mmol/L (3.3-5.1); Sodium 137 mmol/L (135-145)
[2023-08-07 11:26] VITALS: PULSE 64
[2023-08-07 11:27] LABS: Glucose, Whole Blood 123 mg/dL (60-115)
--- NOTE | 2023-08-07 12:08 | MHC.CM.PN ---
DAVID PT WILL DC TO [facility] PENDING INSURANCE AUTH, PT WILL HAVE [facility] FOR TRANSPORT
[2023-08-07 15:26] VITALS: BP 110/56; PULSE 77; RESP 20; TEMP 36.4; O2SAT 95
[2023-08-07 15:54] LABS: Glucose, Whole Blood 400 mg/dL (60-115)
[2023-08-07] MEDS: Insulin Lispro 100 UNIT/ML 3 ML VIAL SUBCUT ×3 (16:22→22:50)
[2023-08-07] MEDS: Heparin Sodium,Porcine 5,000 UNIT/ML VIAL 5000 UNIT SUBCUT (16:23)
--- NOTE | 2023-08-07 16:54 | HO.PM.IMPN ---
Subjective Subjective Date of Service: 08/07/23 Interval History: seen and examined this morning follow up for respiratory failure no overnight events, no complaints Review of Systems Review of Systems: Yes all other systems are reviewed and are negative Constitutional Constitutional: Denies chills and Denies fever(s) Cardiovascular Cardiovascular: Denies chest pain, Denies palpitations and Denies dyspnea Respiratory Respiratory: Denies cough and Denies dyspnea Endocrine Endocrine: Denies palpitations Physical Exam Vital Signs: Vital Signs: Last Vital Signs Temp 97.6 F 08/07/23 15:26 Pulse 77 08/07/23 15:26 Resp 20 08/07/23 15:26 BP 110/56 L 08/07/23 15:26 Pulse Ox 95 08/07/23 15:26 O2 Del Method Nasal Cannula 08/07/23 15:26 O2 Flow Rate 2 08/07/23 15:26 FiO2 39 08/02/23 19:45 BMI result Body Mass Index 34.0 Const: General: cooperative, comfortable, alert, awake and ill appearing Nutritional Appearance: overweight Orientation/consciousness: patient oriented x3 Resp: Effort & Inspection: normal respiratory effort, able to speak in complete sentences, no respiratory distress and no use of accessory muscles Cardio: Rate: regular rate GI: Inspection: No distended Palpation (GI): Soft to palpation and nontender Neuro: General: patient oriented x3, moves all extremities and CN's II-XI intact bilaterally Extrem: General: Yes no pedal edema Objective Data Active Medications Acetaminophen (Acetaminophen 325 Mg Tablet) 650 mg PO Q6H PRN PRN Reason: Pain, Mild (Pain Scale 1-3) Aspirin (Aspirin Enteric Coated 81 Mg Tablet.) 81 mg PO BEDTIME [facility] Last Admin: 08/06/23 20:29 Dose: 81 mg Documented By: BALJIT Atorvastatin Calcium (Atorvastatin Calcium 40 Mg Tablet) 40 mg PO BEDTIME [facility] Last Admin: 08/06/23 20:29 Dose: 40 mg Documented By: BALJIT Benzocaine (Throat Lozenge, Medicated Lozenge) 1 lozenge MUCOUS MEM Q2H PRN PRN Reason: Sore Throat Last Admin: 08/06/23 01:22 Dose: 1 lozenge Documented By: BALJIT Benzonatate (Benzonatate 100 Mg Capsule) 100 mg PO TID PRN PRN Reason: Cough Last Admin: 08/03/23 02:56 Dose: 100 mg Documented By: JOSÉ LUIS Cholestyramine Resin (Cholestyramine (With Sugar) 4 Gm Powd.Pack) 4 gm PO DAILY [facility] Last Admin: 08/07/23 09:01 Dose: Not Given Documented By: DARELL Non-Admin Reason: Physician Held Med Fluoxetine HCl (Fluoxetine Hcl 20 Mg Capsule) 40 mg PO DAILY [facility] Last Admin: 08/07/23 08:59 Dose: 40 mg Documented By: DARELL Fluticasone/Umeclidinium/Vilanterol (Fluticasone/Umeclidinium/Vilanterol 200/62.5/25 Blst.W.Dev) 1 puff INHALE RDAILY [facility] Last Admin: 08/07/23 07:50 Dose: 1 puff Documented By: CADY Gabapentin (Gabapentin 600 Mg Tablet) 600 mg PO TID [facility] Last Admin: 08/07/23 14:22 Dose: 600 mg Documented By: DARELL Glucose (Glucose Gel 15 Gm Gel..Gram.) 15 gm PO Q15M PRN; Protocol PRN Reason: per Hypoglycemia Standing Ord. Guaifenesin/Dextromethorphan (Guaifenesin Dm 600/30 1 Tab Tab.Er.12h) 2 tab PO BID [facility] Last Admin: 08/07/23 09:01 Dose: Not Given Documented By: DARELL Non-Admin Reason: Physician Held Med Heparin Sodium (Porcine) (Heparin Sodium,Porcine 5,000 Unit/Ml Vial) 5,000 unit SUBCUT Q8H [facility] Last Admin: 08/07/23 16:23 Dose: 5,000 unit Documented By: LORE Dextrose (D10) 250 mls @ 750 mls/hr IV Q15M PRN PRN Reason: per Hypoglycemia Standing Ord. Insulin Human Lispro (Insulin Lispro 100 Unit/Ml 3 Ml Vial) 0 unit SUBCUT QIDACHS [facility]; Protocol Last Admin: 08/07/23 16:22 Dose: 10 unit Documented By: LORE Isosorbide Mononitrate (Isosorbide Mononitrate 60 Mg Tab.Er.24h) 60 mg PO DAILY [facility]; Protocol Last Admin: 08/07/23 08:59 Dose: 60 mg Documented By: DARELL Lisinopril (Lisinopril 10 Mg Tablet) 10 mg PO DAILY [facility]; Protocol Last Admin: 08/06/23 08:55 Dose: 10 mg Documented By: KJ Methimazole (Methimazole 5 Mg Tablet) 5 mg PO DAILY [facility] Last Admin: 08/07/23 08:58 Dose: 5 mg Documented By: DARELL Metoprolol Succinate (Metoprolol Succinate Er 12.5 Mg Halftab.Er.24h) 37.5 mg PO DAILY [facility]; Protocol Nitroglycerin (Nitroglycerin 0.4 Mg Tab.Subl) 0.4 mg SUBLINGUAL Q5M PRN PRN Reason: angina Pantoprazole Sodium (Pantoprazole Sodium 40 Mg/10 Ml Vial) 40 mg IVPUSH BID@0630,1630 [facility] Last Admin: 08/07/23 16:23 Dose: 40 mg Documented By: LORE Prednisone (Prednisone 20 Mg Tablet) 40 mg PO DAILY [facility] Last Admin: 08/07/23 08:58 Dose: 40 mg Documented By: DARELL Simethicone (Simethicone 80 Mg Tab.Chew) 80 mg PO QID PRN PRN Reason: abdominal distention Sodium Chloride (0.9 % Sodium Chloride Flush 3 Ml Syringe) 3 ml IVFLUSH QSHIFT [facility] Last Admin: 08/07/23 16:21 Dose: 3 ml Documented By: LORE Tamsulosin HCl (Tamsulosin Hcl 0.4 Mg Capsule) 0.4 mg PO BEDTIME [facility] Last Admin: 08/06/23 20:30 Dose: 0.4 mg Documented By: BALJIT Theophylline (Theophylline Anhydrous Er 400 Mg Tab.Er.24h) 400 mg PO DAILY [facility] Last Admin: 08/07/23 08:58 Dose: 400 mg Documented By: DARELL Labs 07/31/23 05:04 08/07/23 10:42 Labs: Laboratory Results - last 24 hr 08/06/23 08/07/23 08/07/23 19:49 07:42 10:42 Anion Gap 11 L Estim Creat Clear Calc 89.6 Estimated GFR > 60 POC Glucose 147 H 143 H Random Glucose 106 Calcium 8.7 08/07/23 08/07/23 11:23 15:48 Anion Gap Estim Creat Clear Calc Estimated GFR POC Glucose 123 H 400 H* Random Glucose Calcium Assessment and Plan (1) Esophageal stricture: Status: Acute (2) Respiratory failure: Status: Acute Plan This is a 68 year old male with history of COPD, diabetes, pulmonary nodules, coronary artery disease hypertension, hyperlipidemia, hypothyroidism who presents to the emergency department with shortness of breath felt to be hypoxic and requiring high-flow supplemental oxygen History of esophageal stricture Enlarged esophagus seen on imaging Barium swallow completed results with achalasia versus stricture and ?gastritis ?Esophagitis seen by GI - initially planned for EGD, but anesthesia defers to outpatient after patient has recovered from respiratory illness - tentatively scheduled as outpatient on Thursday at 11am omeprazole changed to IV PPI, can d/c with omeprazole NSVT no further episodes lytes wnl echo with preserved EF will increase dose of metoprolol hyperkalemia resolved with lokelma hold lisinopril for now Acute hypoxic respiratory failure secondary to acute exacerbation chronic obstructive pulmonary disease with associated infection bronchiolitis/pneumonitis and entero/rhinovirus Concern for possible microaspiration s/p course of clindamycin, levaquin (pcn allergy) RPP + for entero/rhinovirus s/p high-flow supplemental oxygen, now on 2L Continue bronchodilator therapy, IV steroids transitioned to prednisone Continue theophylline. Pulmonology following Home o2 eval> will require 2 liters with ambulation Type 2 diabetes mellitus. Hold metformin and glipizide. Insulin sliding scale. Hyperthyroidism. Continue methimazole and metoprolol Hyperlipidemia. Continue statin. CAD. Continue aspirin, statin, BB, imdur GERD. Continue PPI. BPH. Continue tamsulosin. Essential hypertension. Continue metoprolol, hold lisinopril for hyperkalemia- consider resuming in am if bp allows HCTZ on hold mood Continue fluoxetine. DVT prophylaxis: Heparin attending Dr. Guillen Code status: Full DISPO plan for STR - CM working on insurance authorization needs ongoing hospitalization for hypoxic respiratory failure treatment secondary to COPD, rhinovirus/enterovirus, placement Quality Stroke Does the patient have a stroke diagnosis?: No VTE Prior VTE?: No VTE Risk Level:: Medical - moderate - high VTE Device Contraindication: Treatment Not Indicated VTE Drug Contraindication: N/A - Med Ordered
[2023-08-07 19:38] VITALS: BP 119/67; PULSE 74; RESP 20; TEMP 36.8; O2SAT 96
[2023-08-07 21:15] LABS: Glucose, Whole Blood 199 mg/dL (60-115)
[2023-08-07] MEDS: Atorvastatin Calcium 40 MG TABLET PO (22:50)
[2023-08-07] MEDS: guaiFENesin DM 600/30 1 TAB TAB.ER.12H 2 TAB PO (22:50)
[2023-08-07] MEDS: Aspirin Enteric Coated 81 MG TABLET.DR PO (22:50)
[2023-08-07] MEDS: Tamsulosin HCL 0.4 MG CAPSULE PO (22:52)
[2023-08-08] MEDS: Heparin Sodium,Porcine 5,000 UNIT/ML VIAL 5000 UNIT SUBCUT ×3 (02:54→16:37)
[2023-08-08 03:12] VITALS: BP 140/76; PULSE 58; RESP 20; TEMP 36.8; O2SAT 95
[2023-08-08] MEDS: Pantoprazole Sodium 40 MG/10 ML VIAL IVPUSH ×2 (07:00→16:37)
[2023-08-08 07:10] LABS: Glucose, Whole Blood 118 mg/dL (60-115)
--- NOTE | 2023-08-08 07:19 | P.PNIM_ITS ---
Subjective Subjective Date of Service: 08/08/23 Interval History: seen and examined this morning follow up for respiratory failure no overnight events, no complaints Review of Systems Review of Systems: Yes all other systems are reviewed and are negative Constitutional Constitutional: Denies chills and Denies fever(s) Cardiovascular Cardiovascular: Denies chest pain, Denies palpitations and Denies dyspnea Respiratory Respiratory: Denies cough and Denies dyspnea Endocrine Endocrine: Denies palpitations Physical Exam 2 Vital Signs: Vital Signs: Last Vital Signs Temp 98.2 F 08/08/23 03:12 Pulse 58 08/08/23 03:12 Resp 20 08/08/23 03:12 BP 140/76 H 08/08/23 03:12 Pulse Ox 95 08/08/23 03:12 O2 Del Method Nasal Cannula 08/08/23 03:12 O2 Flow Rate 2 08/08/23 03:12 FiO2 39 08/02/23 19:45 BMI result Body Mass Index 34.0 Constitutional - Awake and Alert, No apparent distress Eyes - PERRLA, EOMI Cardiovascular - S1S2, RRR, No edema Respiratory - Normal lung expansion, Normal respiratory effort, No respiratory distress, CTA bilaterally Extremities - no calf tenderness bilaterally, no swelling Skin - Warm/Dry Neurological - Alert & oriented x3 Psychological - Appropriate affect Objective Data Active Medications Acetaminophen (Acetaminophen 325 Mg Tablet) 650 mg PO Q6H PRN PRN Reason: Pain, Mild (Pain Scale 1-3) Aspirin (Aspirin Enteric Coated 81 Mg Tablet.) 81 mg PO BEDTIME [facility] Last Admin: 08/07/23 22:50 Dose: 81 mg Documented By: CLAYTON Atorvastatin Calcium (Atorvastatin Calcium 40 Mg Tablet) 40 mg PO BEDTIME [facility] Last Admin: 08/07/23 22:50 Dose: 40 mg Documented By: CLAYTON Benzocaine (Throat Lozenge, Medicated Lozenge) 1 lozenge MUCOUS MEM Q2H PRN PRN Reason: Sore Throat Last Admin: 08/06/23 01:22 Dose: 1 lozenge Documented By: BALJIT Benzonatate (Benzonatate 100 Mg Capsule) 100 mg PO TID PRN PRN Reason: Cough Last Admin: 08/03/23 02:56 Dose: 100 mg Documented By: JOSÉ LUIS Cholestyramine Resin (Cholestyramine (With Sugar) 4 Gm Powd.Pack) 4 gm PO DAILY [facility] Last Admin: 08/07/23 09:01 Dose: Not Given Documented By: DARELL Non-Admin Reason: Physician Held Med Fluoxetine HCl (Fluoxetine Hcl 20 Mg Capsule) 40 mg PO DAILY [facility] Last Admin: 08/07/23 08:59 Dose: 40 mg Documented By: DARELL Fluticasone/Umeclidinium/Vilanterol (Fluticasone/Umeclidinium/Vilanterol 200/62.5/25 Blst.W.Dev) 1 puff INHALE RDAILY [facility] Last Admin: 08/07/23 07:50 Dose: 1 puff Documented By: CADY Gabapentin (Gabapentin 600 Mg Tablet) 600 mg PO TID [facility] Last Admin: 08/07/23 22:50 Dose: 600 mg Documented By: CLAYTON Glucose (Glucose Gel 15 Gm Gel..Gram.) 15 gm PO Q15M PRN; Protocol PRN Reason: per Hypoglycemia Standing Ord. Guaifenesin/Dextromethorphan (Guaifenesin Dm 600/30 1 Tab Tab.Er.12h) 2 tab PO BID [facility] Last Admin: 08/07/23 22:50 Dose: 2 tab Documented By: CLAYTON Heparin Sodium (Porcine) (Heparin Sodium,Porcine 5,000 Unit/Ml Vial) 5,000 unit SUBCUT Q8H [facility] Last Admin: 08/08/23 02:54 Dose: 5,000 unit Documented By: CLAYTON Dextrose (D10) 250 mls @ 750 mls/hr IV Q15M PRN PRN Reason: per Hypoglycemia Standing Ord. Insulin Human Lispro (Insulin Lispro 100 Unit/Ml 3 Ml Vial) 0 unit SUBCUT QIDACHS [facility]; Protocol Last Admin: 08/08/23 07:15 Dose: Not Given Documented By: MERLINE Non-Admin Reason: No Insulin Coverage Isosorbide Mononitrate (Isosorbide Mononitrate 60 Mg Tab.Er.24h) 60 mg PO DAILY [facility]; Protocol Last Admin: 08/07/23 08:59 Dose: 60 mg Documented By: DARELL Lisinopril (Lisinopril 10 Mg Tablet) 10 mg PO DAILY [facility]; Protocol Last Admin: 04/11/24 08:55 Dose: 10 mg Documented By: KJ Methimazole (Methimazole 5 Mg Tablet) 5 mg PO DAILY [facility] Last Admin: 08/07/23 08:58 Dose: 5 mg Documented By: DARELL Metoprolol Succinate (Metoprolol Succinate Er 12.5 Mg Halftab.Er.24h) 37.5 mg PO DAILY [facility]; Protocol Nitroglycerin (Nitroglycerin 0.4 Mg Tab.Subl) 0.4 mg SUBLINGUAL Q5M PRN PRN Reason: angina Pantoprazole Sodium (Pantoprazole Sodium 40 Mg/10 Ml Vial) 40 mg IVPUSH BID@0630,1630 [facility] Last Admin: 08/08/23 07:00 Dose: 40 mg Documented By: CLAYTON Prednisone (Prednisone 20 Mg Tablet) 40 mg PO DAILY [facility] Stop: 08/10/23 09:01 Last Admin: 08/07/23 08:58 Dose: 40 mg Documented By: DARELL Simethicone (Simethicone 80 Mg Tab.Chew) 80 mg PO QID PRN PRN Reason: abdominal distention Sodium Chloride (0.9 % Sodium Chloride Flush 3 Ml Syringe) 3 ml IVFLUSH QSHIFT [facility] Last Admin: 08/07/23 22:52 Dose: 3 ml Documented By: CLAYTON Tamsulosin HCl (Tamsulosin Hcl 0.4 Mg Capsule) 0.4 mg PO BEDTIME [facility] Last Admin: 08/07/23 22:52 Dose: 0.4 mg Documented By: CLAYTON Theophylline (Theophylline Anhydrous Er 400 Mg Tab.Er.24h) 400 mg PO DAILY [facility] Last Admin: 08/07/23 08:58 Dose: 400 mg Documented By: DARELL Labs 07/31/23 05:04 08/07/23 10:42 Labs: Laboratory Results - last 24 hr 08/07/23 08/07/23 08/07/23 07:42 10:42 11:23 Anion Gap 11 L Estim Creat Clear Calc 89.6 Estimated GFR > 60 POC Glucose 143 H 123 H Random Glucose 106 Calcium 8.7 08/07/23 08/07/23 08/08/23 15:48 21:10 07:06 Anion Gap Estim Creat Clear Calc Estimated GFR POC Glucose 400 H* 199 H 118 H Random Glucose Calcium Assessment and Plan (1) Esophageal stricture: Status: Acute (2) Respiratory failure: Status: Acute Plan This is a 68 year old male with history of COPD, diabetes, pulmonary nodules, coronary artery disease hypertension, hyperlipidemia, hypothyroidism who presents to the emergency department with shortness of breath felt to be hypoxic and requiring high-flow supplemental oxygen History of esophageal stricture Enlarged esophagus seen on imaging Barium swallow completed results with achalasia versus stricture and ?gastritis ?Esophagitis seen by GI - initially planned for EGD, but anesthesia defers to outpatient after patient has recovered from respiratory illness - tentatively scheduled as outpatient on Thursday at 11am omeprazole changed to IV PPI, can d/c with omeprazole NSVT no further episodes lytes wnl echo with preserved EF will increase dose of metoprolol hyperkalemia resolved with lokelma hold lisinopril for now Acute hypoxic respiratory failure secondary to acute exacerbation chronic obstructive pulmonary disease with associated infection bronchiolitis/pneumonitis and entero/rhinovirus Concern for possible microaspiration s/p course of clindamycin, levaquin (pcn allergy) RPP + for entero/rhinovirus s/p high-flow supplemental oxygen, now on 2L Continue bronchodilator therapy, IV steroids transitioned to prednisone Continue theophylline. Pulmonology following Home o2 eval> will require 2 liters with ambulation Type 2 diabetes mellitus. Hold metformin and glipizide. Insulin sliding scale. Hyperthyroidism. Continue methimazole and metoprolol Hyperlipidemia. Continue statin. CAD. Continue aspirin, statin, BB, imdur GERD. Continue PPI. BPH. Continue tamsulosin. Essential hypertension. Continue metoprolol, hold lisinopril for hyperkalemia- consider resuming in am if bp allows HCTZ on hold mood Continue fluoxetine. DVT prophylaxis: Heparin attending Dr. Guillen Code status: Full DISPO plan for [facility] - CM working on insurance authorization needs ongoing hospitalization for hypoxic respiratory failure treatment secondary to COPD, rhinovirus/enterovirus, placement Quality Stroke Does the patient have a stroke diagnosis?: No VTE Prior VTE?: No VTE Risk Level:: Medical - moderate - high VTE Device Contraindication: Treatment Not Indicated VTE Drug Contraindication: N/A - Med Ordered
[2023-08-08 07:29] VITALS: BP 150/75; PULSE 55; RESP 20; TEMP 36.9; O2SAT 93
[2023-08-08] MEDS: 0.9 % Sodium Chloride Flush 3 ML SYRINGE IVFLUSH ×3 (07:57→23:03)
[2023-08-08] MEDS: Metoprolol Succinate ER 12.5 MG HALFTAB.ER.24H 37.5 MG PO (07:58)
[2023-08-08] MEDS: Gabapentin 600 MG TABLET PO ×3 (07:58→22:59)
[2023-08-08] MEDS: FLUoxetine HCl 20 MG CAPSULE 40 MG PO (07:58)
[2023-08-08] MEDS: Theophylline Anhydrous ER 400 MG TAB.ER.24H PO (07:58)
[2023-08-08] MEDS: guaiFENesin DM 600/30 1 TAB TAB.ER.12H 2 TAB PO ×2 (07:58→22:59)
[2023-08-08] MEDS: predniSONE 20 MG TABLET 40 MG PO (07:59)
[2023-08-08] MEDS: methIMAzole 5 MG TABLET PO (07:59)
[2023-08-08] MEDS: Cholestyramine (With Sugar) 4 GM POWD.PACK PO (07:59)
[2023-08-08] MEDS: Isosorbide Mononitrate 60 MG TAB.ER.24H PO (07:59)
[2023-08-08] MEDS: Fluticasone/Umeclidinium/Vilanterol 200/62.5/25 BLST.W.DEV 1 PUFF INHALE (08:01)
[2023-08-08 08:03] VITALS: PULSE 70; RESP 17; O2SAT 92
--- NOTE | 2023-08-08 09:43 | P.PNPL_ITS ---
Subjective Subjective Date of Service: 08/08/23 Interval history: Acute exacerbation resolved, essentially at baseline this time. Objective Data Labs 07/31/23 05:04 08/07/23 10:42 Labs: Laboratory Results - last 24 hr 08/07/23 08/07/23 08/07/23 10:42 11:23 15:48 Sodium 137 Potassium 4.4 D Chloride 98 Carbon Dioxide 32 H Anion Gap 11 L BUN 28 H Creatinine 0.87 Estim Creat Clear Calc 89.6 Estimated GFR > 60 POC Glucose 123 H 400 H* Random Glucose 106 Calcium 8.7 08/07/23 08/08/23 21:10 07:06 Sodium Potassium Chloride Carbon Dioxide Anion Gap BUN Creatinine Estim Creat Clear Calc Estimated GFR POC Glucose 199 H 118 H Random Glucose Calcium Microbiology Microbiology Results: Microbiology 07/30/23 16:44 Blood - Venous Blood Culture - Final No growth after 5 days. 07/30/23 16:43 Blood - Venous Blood Culture - Final No growth after 5 days. Physical Exam 2 Vital Signs: Vital Signs: Last Vital Signs Temp 98.5 F 08/08/23 07:29 Pulse 70 08/08/23 08:03 Resp 17 08/08/23 08:03 BP 150/75 H 08/08/23 07:29 Pulse Ox 93 08/08/23 07:29 O2 Del Method Nasal Cannula 08/08/23 07:29 O2 Flow Rate 2 08/08/23 07:29 FiO2 39 08/02/23 19:45 BMI result Body Mass Index 34.0 Const: General: no acute distress, alert and awake Eyes: Sclerae: sclerae normal EOM: EOMs intact bilaterally Neck: Neck: Yes no lymphadenopathy, Yes trachea midline and Yes supple Resp: Effort & Inspection: normal respiratory effort and no respiratory distress Auscultation: clear to auscultation bilaterally Cardio: Rate: regular rate Rhythm: regular rhythm Heart sounds: no gallops, no murmurs and no rubs GI: Palpation (GI): Soft to palpation and Other GI palpation findings present ( Nontender) Auscultation: normal bowel sounds Extrem: General: Yes no pedal edema, No clubbing and No cyanosis Procedures Date of Service Date of Service: 08/08/23 Assessment and Plan Assessment and plan (1) COPD (chronic obstructive pulmonary disease): Status: Acute (2) Acute respiratory failure with hypoxia: Status: Acute Plan Impression: 68-year-old gentleman with underlying COPD admitted with COPD exacerbation secondary to rhinovirus, now essentially at baseline, though require supplemental oxygen with exertion. Recommendations: Continue baseline regimen including theophylline, Trelegy, and prednisone taper. Will schedule office follow-up in approximately 4 weeks after discharge. Time Spent With Patient Time: Total time managing care of this patient today ____ minutes. Progress Note: Quality Stroke Does the patient have a stroke diagnosis?: No
[2023-08-08 10:56] LABS: Glucose, Whole Blood 201 mg/dL (60-115)
[2023-08-08] MEDS: Insulin Lispro 100 UNIT/ML 3 ML VIAL SUBCUT ×3 (11:59→23:00)
[2023-08-08 15:16] VITALS: BP 117/66; PULSE 62; RESP 18; TEMP 36.5; O2SAT 95
[2023-08-08 16:21] LABS: Glucose, Whole Blood 224 mg/dL (60-115)
[2023-08-08 19:51] VITALS: BP 122/78; PULSE 62; RESP 20; TEMP 37.3; O2SAT 93
[2023-08-08 21:39] LABS: Glucose, Whole Blood 164 mg/dL (60-115)
[2023-08-08] MEDS: Atorvastatin Calcium 40 MG TABLET PO (22:59)
[2023-08-08] MEDS: Aspirin Enteric Coated 81 MG TABLET.DR PO (22:59)
[2023-08-08] MEDS: Tamsulosin HCL 0.4 MG CAPSULE PO (23:00)
[2023-08-09] MEDS: Heparin Sodium,Porcine 5,000 UNIT/ML VIAL 5000 UNIT SUBCUT ×3 (02:09→17:00)
[2023-08-09 03:31] VITALS: BP 129/79; PULSE 53; RESP 20; TEMP 36.6; O2SAT 98
--- NOTE | 2023-08-09 07:21 | HO.PM.IMPN ---
Subjective Subjective Date of Service: 08/09/23 Interval History: seen and examined this morning follow up for respiratory failure no overnight events, no complaints. Pt reports he would be agreeable to either STR or home with services. Still not always compliant with O2 when out of bed Review of Systems Review of Systems: Yes all other systems are reviewed and are negative Constitutional Constitutional: Denies chills and Denies fever(s) Cardiovascular Cardiovascular: Denies chest pain, Denies palpitations and Denies dyspnea Respiratory Respiratory: Denies cough and Denies dyspnea Endocrine Endocrine: Denies palpitations Physical Exam Vital Signs: Vital Signs: Last Vital Signs Temp 97.9 F 08/09/23 03:31 Pulse 53 08/09/23 03:31 Resp 20 08/09/23 03:31 BP 129/79 08/09/23 03:31 Pulse Ox 98 08/09/23 03:31 O2 Del Method Nasal Cannula 08/09/23 03:31 O2 Flow Rate 2 08/09/23 03:31 FiO2 39 08/02/23 19:45 BMI result Body Mass Index 34.0 Constitutional - Awake and Alert, No apparent distress Eyes - PERRLA, EOMI Cardiovascular - S1S2, RRR, No edema Respiratory - Normal lung expansion, Normal respiratory effort, No respiratory distress, CTA bilaterally Extremities - no calf tenderness bilaterally, no swelling Skin - Warm/Dry Neurological - Alert & oriented x3 Psychological - Appropriate affect Objective Data Active Medications Acetaminophen (Acetaminophen 325 Mg Tablet) 650 mg PO Q6H PRN PRN Reason: Pain, Mild (Pain Scale 1-3) Aspirin (Aspirin Enteric Coated 81 Mg Tablet.) 81 mg PO BEDTIME [facility] Last Admin: 08/08/23 22:59 Dose: 81 mg Documented By: CLAYTON Atorvastatin Calcium (Atorvastatin Calcium 40 Mg Tablet) 40 mg PO BEDTIME [facility] Last Admin: 08/08/23 22:59 Dose: 40 mg Documented By: CLAYTON Benzocaine (Throat Lozenge, Medicated Lozenge) 1 lozenge MUCOUS MEM Q2H PRN PRN Reason: Sore Throat Last Admin: 08/06/23 01:22 Dose: 1 lozenge Documented By: BALJIT Benzonatate (Benzonatate 100 Mg Capsule) 100 mg PO TID PRN PRN Reason: Cough Last Admin: 08/03/23 02:56 Dose: 100 mg Documented By: JOSÉ LUIS Cholestyramine Resin (Cholestyramine (With Sugar) 4 Gm Powd.Pack) 4 gm PO DAILY [facility] Last Admin: 08/08/23 07:59 Dose: 4 gm Documented By: MERLINE Fluoxetine HCl (Fluoxetine Hcl 20 Mg Capsule) 40 mg PO DAILY [facility] Last Admin: 08/08/23 07:58 Dose: 40 mg Documented By: MERLINE Fluticasone/Umeclidinium/Vilanterol (Fluticasone/Umeclidinium/Vilanterol 200/62.5/25 Blst.W.Dev) 1 puff INHALE RDAILY [facility] Last Admin: 08/08/23 08:01 Dose: 1 puff Documented By: GUS Gabapentin (Gabapentin 600 Mg Tablet) 600 mg PO TID [facility] Last Admin: 08/08/23 22:59 Dose: 600 mg Documented By: CLAYTON Glucose (Glucose Gel 15 Gm Gel..Gram.) 15 gm PO Q15M PRN; Protocol PRN Reason: per Hypoglycemia Standing Ord. Guaifenesin/Dextromethorphan (Guaifenesin Dm 600/30 1 Tab Tab.Er.12h) 2 tab PO BID [facility] Last Admin: 08/08/23 22:59 Dose: 2 tab Documented By: CLAYTON Heparin Sodium (Porcine) (Heparin Sodium,Porcine 5,000 Unit/Ml Vial) 5,000 unit SUBCUT Q8H [facility] Last Admin: 08/09/23 02:09 Dose: 5,000 unit Documented By: CLAYTON Dextrose (D10) 250 mls @ 750 mls/hr IV Q15M PRN PRN Reason: per Hypoglycemia Standing Ord. Insulin Human Lispro (Insulin Lispro 100 Unit/Ml 3 Ml Vial) 0 unit SUBCUT QIDACHS [facility]; Protocol Last Admin: 08/08/23 23:00 Dose: 2 unit Documented By: CLAYTON Isosorbide Mononitrate (Isosorbide Mononitrate 60 Mg Tab.Er.24h) 60 mg PO DAILY [facility]; Protocol Last Admin: 08/08/23 07:59 Dose: 60 mg Documented By: MERLINE Lisinopril (Lisinopril 10 Mg Tablet) 10 mg PO DAILY [facility]; Protocol Last Admin: 08/06/23 08:55 Dose: 10 mg Documented By: KJ Methimazole (Methimazole 5 Mg Tablet) 5 mg PO DAILY [facility] Last Admin: 08/08/23 07:59 Dose: 5 mg Documented By: MERLINE Metoprolol Succinate (Metoprolol Succinate Er 12.5 Mg Halftab.Er.24h) 37.5 mg PO DAILY [facility]; Protocol Last Admin: 08/08/23 07:58 Dose: 37.5 mg Documented By: MERLINE Nitroglycerin (Nitroglycerin 0.4 Mg Tab.Subl) 0.4 mg SUBLINGUAL Q5M PRN PRN Reason: angina Pantoprazole Sodium (Pantoprazole Sodium 40 Mg/10 Ml Vial) 40 mg IVPUSH BID@0630,1630 [facility] Last Admin: 08/08/23 16:37 Dose: 40 mg Documented By: MERLINE Prednisone (Prednisone 20 Mg Tablet) 40 mg PO DAILY [facility] Stop: 08/10/23 09:01 Last Admin: 08/08/23 07:59 Dose: 40 mg Documented By: MERLINE Simethicone (Simethicone 80 Mg Tab.Chew) 80 mg PO QID PRN PRN Reason: abdominal distention Sodium Chloride (0.9 % Sodium Chloride Flush 3 Ml Syringe) 3 ml IVFLUSH QSHIFT [facility] Last Admin: 08/08/23 23:03 Dose: 3 ml Documented By: CLAYTON Tamsulosin HCl (Tamsulosin Hcl 0.4 Mg Capsule) 0.4 mg PO BEDTIME [facility] Last Admin: 08/08/23 23:00 Dose: 0.4 mg Documented By: CLAYTON Theophylline (Theophylline Anhydrous Er 400 Mg Tab.Er.24h) 400 mg PO DAILY [facility] Last Admin: 08/08/23 07:58 Dose: 400 mg Documented By: MERLINE Labs 07/31/23 05:04 08/07/23 10:42 Labs: Laboratory Results - last 24 hr 08/08/23 08/08/23 08/08/23 10:50 16:12 21:33 POC Glucose 201 H 224 H 164 H Assessment and Plan (1) Esophageal stricture: Status: Acute (2) Respiratory failure: Status: Acute Plan This is a 68 year old male with history of COPD, diabetes, pulmonary nodules, coronary artery disease hypertension, hyperlipidemia, hypothyroidism who presents to the emergency department with shortness of breath felt to be hypoxic and requiring high-flow supplemental oxygen History of esophageal stricture Enlarged esophagus seen on imaging Barium swallow completed results with achalasia versus stricture and ?gastritis ?Esophagitis seen by GI - initially planned for EGD, but anesthesia defers to outpatient after patient has recovered from respiratory illness - tentatively scheduled as outpatient on Thursday at 11am Change IV PPI back to omeprazole 40mg BID NSVT no further episodes lytes wnl echo with preserved EF will increase dose of metoprolol hyperkalemia resolved with lokelma hold lisinopril for now Acute hypoxic respiratory failure secondary to acute exacerbation chronic obstructive pulmonary disease with associated infection bronchiolitis/pneumonitis and entero/rhinovirus Concern for possible microaspiration s/p course of clindamycin, levaquin (pcn allergy) RPP + for entero/rhinovirus s/p high-flow supplemental oxygen, now on 2L Continue bronchodilator therapy, IV steroids transitioned to prednisone Continue theophylline. Pulmonology following Home o2 eval> will require 2 liters with ambulation Type 2 diabetes mellitus. Hold metformin and glipizide. Insulin sliding scale. Hyperthyroidism. Continue methimazole and metoprolol Hyperlipidemia. Continue statin. CAD. Continue aspirin, statin, BB, imdur GERD. Continue PPI. BPH. Continue tamsulosin. Essential hypertension. Continue metoprolol, hold lisinopril for hyperkalemia. BP overall controlled. Continue holding lisinopril, consider resuming on dc HCTZ on hold mood Continue fluoxetine. DVT prophylaxis: Heparin Code status: Full DISPO plan for STR - CM working on insurance authorization needs ongoing hospitalization for hypoxic respiratory failure treatment secondary to COPD, rhinovirus/enterovirus, placement Quality Stroke Does the patient have a stroke diagnosis?: No VTE Prior VTE?: No VTE Risk Level:: Medical - moderate - high VTE Device Contraindication: Treatment Not Indicated VTE Drug Contraindication: N/A - Med Ordered
[2023-08-09] MEDS: Pantoprazole Sodium 40 MG/10 ML VIAL IVPUSH (07:23)
[2023-08-09 07:26] LABS: Glucose, Whole Blood 108 mg/dL (60-115)
[2023-08-09 07:32] VITALS: BP 141/79; PULSE 54; RESP 18; TEMP 36.1; O2SAT 96
[2023-08-09] MEDS: Fluticasone/Umeclidinium/Vilanterol 200/62.5/25 BLST.W.DEV 1 PUFF INHALE (07:56)
[2023-08-09 07:57] VITALS: PULSE 54; RESP 18; O2SAT 93
[2023-08-09] MEDS: Acetaminophen 325 MG TABLET 650 MG PO (09:01)
[2023-08-09] MEDS: Metoprolol Succinate ER 12.5 MG HALFTAB.ER.24H 37.5 MG PO (09:01)
[2023-08-09] MEDS: 0.9 % Sodium Chloride Flush 3 ML SYRINGE IVFLUSH ×3 (09:02→20:44)
[2023-08-09] MEDS: Gabapentin 600 MG TABLET PO ×3 (09:02→20:41)
[2023-08-09] MEDS: predniSONE 20 MG TABLET 40 MG PO (09:02)
[2023-08-09] MEDS: Theophylline Anhydrous ER 400 MG TAB.ER.24H PO (09:02)
[2023-08-09] MEDS: Cholestyramine (With Sugar) 4 GM POWD.PACK PO (09:02)
[2023-08-09] MEDS: Isosorbide Mononitrate 60 MG TAB.ER.24H PO (09:02)
[2023-08-09] MEDS: Throat Lozenge, Medicated LOZENGE 1 LOZENGE MUCOUS MEM ×2 (09:02→20:41)
[2023-08-09] MEDS: FLUoxetine HCl 20 MG CAPSULE 40 MG PO (09:02)
[2023-08-09] MEDS: methIMAzole 5 MG TABLET PO (09:02)
[2023-08-09] MEDS: guaiFENesin DM 600/30 1 TAB TAB.ER.12H 2 TAB PO ×2 (09:02→20:41)
[2023-08-09 11:37] LABS: Glucose, Whole Blood 219 mg/dL (60-115)
[2023-08-09] MEDS: Insulin Lispro 100 UNIT/ML 3 ML VIAL SUBCUT ×3 (11:49→20:42)
[2023-08-09 15:35] VITALS: BP 128/78; PULSE 59; RESP 18; TEMP 36; O2SAT 96
[2023-08-09 16:10] LABS: Glucose, Whole Blood 213 mg/dL (60-115)
[2023-08-09] MEDS: Omeprazole 40 MG CAPSULE.DR PO (17:01)
[2023-08-09 19:33] VITALS: BP 140/75; PULSE 64; RESP 16; TEMP 36.6; O2SAT 94
[2023-08-09] MEDS: Tamsulosin HCL 0.4 MG CAPSULE PO (20:41)
[2023-08-09] MEDS: Benzonatate 100 MG CAPSULE PO (20:41)
[2023-08-09] MEDS: Aspirin Enteric Coated 81 MG TABLET.DR PO (20:41)
[2023-08-09] MEDS: Atorvastatin Calcium 40 MG TABLET PO (20:41)
[2023-08-09 20:42] LABS: Glucose, Whole Blood 252 mg/dL (60-115)
[2023-08-10] MEDS: Heparin Sodium,Porcine 5,000 UNIT/ML VIAL 5000 UNIT SUBCUT ×3 (00:35→16:20)
[2023-08-10 03:33] VITALS: BP 123/76; PULSE 60; RESP 16; TEMP 36.6; O2SAT 97
[2023-08-10] MEDS: Omeprazole 40 MG CAPSULE.DR PO ×2 (07:15→16:20)
[2023-08-10 07:43] LABS: Glucose, Whole Blood 119 mg/dL (60-115)
[2023-08-10 07:46] VITALS: BP 135/79; PULSE 64; RESP 20; TEMP 36.2; O2SAT 94
[2023-08-10] MEDS: Fluticasone/Umeclidinium/Vilanterol 200/62.5/25 BLST.W.DEV 1 PUFF INHALE (07:47)
[2023-08-10 07:48] VITALS: PULSE 68; RESP 18; O2SAT 92
[2023-08-10] MEDS: guaiFENesin DM 600/30 1 TAB TAB.ER.12H 2 TAB PO ×2 (08:51→21:02)
[2023-08-10] MEDS: methIMAzole 5 MG TABLET PO (08:51)
[2023-08-10] MEDS: Gabapentin 600 MG TABLET PO ×3 (08:51→21:02)
[2023-08-10] MEDS: Isosorbide Mononitrate 60 MG TAB.ER.24H PO (08:51)
[2023-08-10] MEDS: Metoprolol Succinate ER 12.5 MG HALFTAB.ER.24H 37.5 MG PO (08:51)
[2023-08-10] MEDS: Theophylline Anhydrous ER 400 MG TAB.ER.24H PO (08:51)
[2023-08-10] MEDS: predniSONE 20 MG TABLET 40 MG PO (08:51)
[2023-08-10] MEDS: Cholestyramine (With Sugar) 4 GM POWD.PACK PO (08:52)
[2023-08-10] MEDS: FLUoxetine HCl 20 MG CAPSULE 40 MG PO (08:52)
[2023-08-10] MEDS: 0.9 % Sodium Chloride Flush 3 ML SYRINGE IVFLUSH ×2 (08:52→11:46)
--- NOTE | 2023-08-10 08:59 | P.PNIM_ITS ---
Subjective Subjective Date of Service: 08/10/23 Interval History: no c omplaints Physical Exam 2 Vital Signs: Vital Signs: Last Vital Signs Temp 97.2 F 08/10/23 07:46 Pulse 68 08/10/23 07:48 Resp 18 08/10/23 07:48 BP 135/79 08/10/23 07:46 Pulse Ox 94 08/10/23 07:46 O2 Del Method Room Air 08/10/23 07:46 O2 Flow Rate 2 08/10/23 03:33 FiO2 39 08/02/23 19:45 BMI result Body Mass Index 34.0 Constitutional - Awake and Alert, No apparent distress Eyes - PERRLA, EOMI Cardiovascular - S1S2, RRR, No edema Respiratory - Normal lung expansion, Normal respiratory effort, No respiratory distress, CTA bilaterally Extremities - no calf tenderness bilaterally, no swelling Skin - Warm/Dry Neurological - Alert & oriented x3 Psychological - Appropriate affect Objective Data Active Medications Acetaminophen (Acetaminophen 325 Mg Tablet) 650 mg PO Q6H PRN PRN Reason: Pain, Mild (Pain Scale 1-3) Last Admin: 08/09/23 09:01 Dose: 650 mg Documented By: MASSIEL Aspirin (Aspirin Enteric Coated 81 Mg Tablet.Dr) 81 mg PO BEDTIME [facility] Last Admin: 08/09/23 20:41 Dose: 81 mg Documented By: MASSIEL Atorvastatin Calcium (Atorvastatin Calcium 40 Mg Tablet) 40 mg PO BEDTIME [facility] Last Admin: 08/09/23 20:41 Dose: 40 mg Documented By: MASSIEL Benzocaine (Throat Lozenge, Medicated Lozenge) 1 lozenge MUCOUS MEM Q2H PRN PRN Reason: Sore Throat Last Admin: 08/09/23 20:41 Dose: 1 lozenge Documented By: MASSIEL Benzonatate (Benzonatate 100 Mg Capsule) 100 mg PO TID PRN PRN Reason: Cough Last Admin: 08/09/23 20:41 Dose: 100 mg Documented By: MASSIEL Cholestyramine Resin (Cholestyramine (With Sugar) 4 Gm Powd.Pack) 4 gm PO DAILY [facility] Last Admin: 08/10/23 08:52 Dose: 4 gm Documented By: SOFIA Fluoxetine HCl (Fluoxetine Hcl 20 Mg Capsule) 40 mg PO DAILY [facility] Last Admin: 08/10/23 08:52 Dose: 40 mg Documented By: SOFIA Fluticasone/Umeclidinium/Vilanterol (Fluticasone/Umeclidinium/Vilanterol 200/62.5/25 Blst.W.Dev) 1 puff INHALE RDAILY [facility] Last Admin: 08/10/23 07:47 Dose: 1 puff Documented By: SHINE Gabapentin (Gabapentin 600 Mg Tablet) 600 mg PO TID [facility] Last Admin: 08/10/23 08:51 Dose: 600 mg Documented By: SOFIA Glucose (Glucose Gel 15 Gm Gel..Gram.) 15 gm PO Q15M PRN; Protocol PRN Reason: per Hypoglycemia Standing Ord. Guaifenesin/Dextromethorphan (Guaifenesin Dm 600/30 1 Tab Tab.Er.12h) 2 tab PO BID [facility] Last Admin: 08/10/23 08:51 Dose: 2 tab Documented By: SOFIA Heparin Sodium (Porcine) (Heparin Sodium,Porcine 5,000 Unit/Ml Vial) 5,000 unit SUBCUT Q8H [facility] Last Admin: 08/10/23 08:52 Dose: 5,000 unit Documented By: SOFIA Dextrose (D10) 250 mls @ 750 mls/hr IV Q15M PRN PRN Reason: per Hypoglycemia Standing Ord. Insulin Human Lispro (Insulin Lispro 100 Unit/Ml 3 Ml Vial) 0 unit SUBCUT QIDACHS [facility]; Protocol Last Admin: 08/10/23 07:57 Dose: Not Given Documented By: SOFIA Non-Admin Reason: No Insulin Coverage Isosorbide Mononitrate (Isosorbide Mononitrate 60 Mg Tab.Er.24h) 60 mg PO DAILY [facility]; Protocol Last Admin: 08/10/23 08:51 Dose: 60 mg Documented By: SOFIA Lisinopril (Lisinopril 10 Mg Tablet) 10 mg PO DAILY [facility]; Protocol Last Admin: 08/06/23 08:55 Dose: 10 mg Documented By: NICK-NOMAM Methimazole (Methimazole 5 Mg Tablet) 5 mg PO DAILY [facility] Last Admin: 08/10/23 08:51 Dose: 5 mg Documented By: SOFIA Metoprolol Succinate (Metoprolol Succinate Er 12.5 Mg Halftab.Er.24h) 37.5 mg PO DAILY [facility]; Protocol Last Admin: 08/10/23 08:51 Dose: 37.5 mg Documented By: SOFIA Nitroglycerin (Nitroglycerin 0.4 Mg Tab.Subl) 0.4 mg SUBLINGUAL Q5M PRN PRN Reason: angina Omeprazole (Omeprazole 40 Mg Capsule.Dr) 40 mg PO BID@0630,1630 [facility] Last Admin: 08/10/23 07:15 Dose: 40 mg Documented By: ARIAS Prednisone (Prednisone 20 Mg Tablet) 40 mg PO DAILY [facility] Stop: 08/10/23 09:01 Last Admin: 08/10/23 08:51 Dose: 40 mg Documented By: SOFIA Simethicone (Simethicone 80 Mg Tab.Chew) 80 mg PO QID PRN PRN Reason: abdominal distention Sodium Chloride (0.9 % Sodium Chloride Flush 3 Ml Syringe) 3 ml IVFLUSH QSHIFT [facility] Last Admin: 08/10/23 08:52 Dose: 3 ml Documented By: SOFIA Tamsulosin HCl (Tamsulosin Hcl 0.4 Mg Capsule) 0.4 mg PO BEDTIME [facility] Last Admin: 08/09/23 20:41 Dose: 0.4 mg Documented By: ANJEL-RIVLA Theophylline (Theophylline Anhydrous Er 400 Mg Tab.Er.24h) 400 mg PO DAILY [facility] Last Admin: 08/10/23 08:51 Dose: 400 mg Documented By: SOFIA Labs 07/31/23 05:04 08/07/23 10:42 Labs: Laboratory Results - last 24 hr 08/09/23 08/09/23 08/09/23 11:32 16:06 20:37 POC Glucose 219 H 213 H 252 H 08/10/23 07:32 POC Glucose 119 H Assessment and Plan (1) Esophageal stricture: Status: Acute (2) Respiratory failure: Status: Acute Plan This is a 68 year old male with history of COPD, diabetes, pulmonary nodules, coronary artery disease hypertension, hyperlipidemia, hypothyroidism who presented to the emergency department with shortness of breath felt to be hypoxic and requiring high-flow supplemental oxygen History of esophageal stricture Enlarged esophagus seen on imaging Barium swallow completed results with achalasia versus stricture and ?gastritis ?Esophagitis seen by GI - initially planned for EGD, but anesthesia defers to outpatient after patient has recovered from respiratory illness - tentatively scheduled as outpatient on Thursday at 11am Change IV PPI back to omeprazole 40mg BID NSVT no further episodes lytes wnl echo with preserved EF increased dose of metoprolol hyperkalemia resolved with lokelma hold lisinopril for now Acute hypoxic respiratory failure secondary to acute exacerbation chronic obstructive pulmonary disease with associated infection bronchiolitis/pneumonitis and entero/rhinovirus Concern for possible microaspiration s/p course of clindamycin, levaquin (pcn allergy) RPP + for entero/rhinovirus s/p high-flow supplemental oxygen, now on 2L Continue bronchodilator therapy, IV steroids transitioned to prednisone Continue theophylline. Pulmonology following Home o2 eval> will require 2 liters with ambulation Type 2 diabetes mellitus. Hold metformin and glipizide. Insulin sliding scale. Hyperthyroidism. Continue methimazole and metoprolol Hyperlipidemia. Continue statin. CAD. Continue aspirin, statin, BB, imdur GERD. Continue PPI. BPH. Continue tamsulosin. Essential hypertension. Continue metoprolol, hold lisinopril for hyperkalemia. BP overall controlled. Continue holding lisinopril, consider resuming on dc HCTZ on hold mood Continue fluoxetine. DVT prophylaxis: Heparin Code status: Full DISPO plan for [facility] - CM working on insurance authorization reason for continued hospitalization:safe dispo Quality Stroke Does the patient have a stroke diagnosis?: No VTE Prior VTE?: No VTE Risk Level:: Medical - moderate - high VTE Device Contraindication: Treatment Not Indicated VTE Drug Contraindication: N/A - Med Ordered
--- NOTE | 2023-08-10 10:45 | P.PNPL_ITS ---
Subjective Subjective Date of Service: 08/10/23 Interval history: Acute exacerbation resolved Objective Data Labs 07/31/23 05:04 08/07/23 10:42 Labs: Laboratory Results - last 24 hr 08/09/23 08/09/23 08/09/23 11:32 16:06 20:37 POC Glucose 219 H 213 H 252 H 08/10/23 07:32 POC Glucose 119 H Microbiology Microbiology Results: Microbiology 07/30/23 16:44 Blood - Venous Blood Culture - Final No growth after 5 days. 07/30/23 16:43 Blood - Venous Blood Culture - Final No growth after 5 days. Physical Exam 2 Vital Signs: Vital Signs: Last Vital Signs Temp 97.2 F 08/10/23 07:46 Pulse 68 08/10/23 07:48 Resp 18 08/10/23 07:48 BP 135/79 08/10/23 07:46 Pulse Ox 94 08/10/23 07:46 O2 Del Method Room Air 08/10/23 07:46 O2 Flow Rate 2 08/10/23 03:33 FiO2 39 08/02/23 19:45 BMI result Body Mass Index 34.0 Const: General: no acute distress, alert and awake Eyes: Sclerae: sclerae normal EOM: EOMs intact bilaterally Neck: Neck: Yes no lymphadenopathy, Yes trachea midline and Yes supple Resp: Effort & Inspection: normal respiratory effort and no respiratory distress Auscultation: clear to auscultation bilaterally Cardio: Rate: regular rate Rhythm: regular rhythm Heart sounds: no gallops, no murmurs and no rubs GI: Palpation (GI): Soft to palpation and Other GI palpation findings present ( Nontender) Auscultation: normal bowel sounds Extrem: General: Yes no pedal edema, No clubbing and No cyanosis Procedures Date of Service Date of Service: 08/10/23 Assessment and Plan Assessment and plan (1) Acute respiratory failure with hypoxia: Status: Acute (2) COPD (chronic obstructive pulmonary disease): Status: Acute Plan Impression: 68-year-old gentleman with underlying COPD admitted with COPD exacerbation secondary to rhinovirus, now at baseline. Recommendations: Continue baseline regimen including theophylline, Trelegy, and prednisone taper. Will schedule office follow-up in approximately 4 weeks after discharge. Consider re-evaluation for supplemental oxygen, as patient may not required it at this time. Time Spent With Patient Time: Total time managing care of this patient today ____ minutes. Progress Note: Quality Stroke Does the patient have a stroke diagnosis?: No
--- NOTE | 2023-08-10 11:35 | PC.NURSE ---
Assumed care of patient at this time.
[2023-08-10 11:36] LABS: Glucose, Whole Blood 224 mg/dL (60-115)
[2023-08-10] MEDS: Throat Lozenge, Medicated LOZENGE 1 LOZENGE MUCOUS MEM (11:43)
[2023-08-10] MEDS: Benzonatate 100 MG CAPSULE PO (11:43)
[2023-08-10] MEDS: Insulin Lispro 100 UNIT/ML 3 ML VIAL SUBCUT ×3 (11:43→21:02)
--- NOTE | 2023-08-10 14:23 | MHC.CM.PN ---
PER FRANCOISE CAUSEY LIAISON, [facility] HAS DENIED PT FOR STR. CM MET WITH PT WHO IS COMFORTABLE TO GO HOME WITH NEW [facility] AND FAMILY SUPPORT. [facility] UPDATED. MADE AWARE. CM WILL CONTINUE TO FOLLOW FOR ANY CHANGE IN DC PLAN. IMM DELIVERED
[2023-08-10 15:43] VITALS: BP 123/75; PULSE 64; RESP 18; TEMP 36.4; O2SAT 94
[2023-08-10 16:13] LABS: Glucose, Whole Blood 388 mg/dL (60-115)
[2023-08-10 19:50] VITALS: BP 121/79; PULSE 59; RESP 20; TEMP 37; O2SAT 95
[2023-08-10 20:28] LABS: Glucose, Whole Blood 210 mg/dL (60-115)
[2023-08-10] MEDS: Atorvastatin Calcium 40 MG TABLET PO (21:02)
[2023-08-10] MEDS: Tamsulosin HCL 0.4 MG CAPSULE PO (21:02)
[2023-08-10] MEDS: Aspirin Enteric Coated 81 MG TABLET.DR PO (21:02)
[2023-08-11] MEDS: Heparin Sodium,Porcine 5,000 UNIT/ML VIAL 5000 UNIT SUBCUT ×2 (00:52→09:04)
[2023-08-11] MEDS: 0.9 % Sodium Chloride Flush 3 ML SYRINGE IVFLUSH ×2 (00:58→09:04)
[2023-08-11 04:00] VITALS: BP 125/69; PULSE 54; RESP 20; TEMP 36.3; O2SAT 92
[2023-08-11] MEDS: Omeprazole 40 MG CAPSULE.DR PO (05:41)
[2023-08-11] MEDS: Fluticasone/Umeclidinium/Vilanterol 200/62.5/25 BLST.W.DEV 1 PUFF INHALE (07:42)
[2023-08-11 07:43] VITALS: BP 146/78; PULSE 59; RESP 20; TEMP 36.4; O2SAT 98
[2023-08-11 07:44] VITALS: PULSE 54; RESP 18; O2SAT 96
[2023-08-11 08:06] LABS: Glucose, Whole Blood 132 mg/dL (60-115)
[2023-08-11 08:50] VITALS: PULSE 74; O2SAT 92
[2023-08-11] MEDS: FLUoxetine HCl 20 MG CAPSULE 40 MG PO (09:04)
[2023-08-11] MEDS: Gabapentin 600 MG TABLET PO (09:04)
[2023-08-11] MEDS: Theophylline Anhydrous ER 400 MG TAB.ER.24H PO (09:04)
[2023-08-11] MEDS: Cholestyramine (With Sugar) 4 GM POWD.PACK PO (09:04)
[2023-08-11] MEDS: Metoprolol Succinate ER 12.5 MG HALFTAB.ER.24H 37.5 MG PO (09:04)
[2023-08-11] MEDS: guaiFENesin DM 600/30 1 TAB TAB.ER.12H 2 TAB PO (09:04)
[2023-08-11] MEDS: methIMAzole 5 MG TABLET PO (09:04)
[2023-08-11] MEDS: Isosorbide Mononitrate 60 MG TAB.ER.24H PO (09:04)
[2023-08-11 09:38] VITALS: PULSE 64; PULSE 71; O2SAT 93
--- NOTE | 2023-08-11 10:25 | P.DS_ITS ---
DS: Providers Provider Date of Service: 08/11/23 Date of admission: 07/30/23 20:47 Primary care physician: Gonzales Brennan MD Consults: 07/30/23 22:41 Consult to Pulmonology Routine Consulting Provider: [facility] Reason for consultation: Hypoxic respiratory failure, COPD exacerbation Has provider been notified: No 08/06/23 08:13 Consult to Gastroenterology Routine Consulting Provider: Wesley Barrios Reason for consultation: abnormal barium swallow, achalasia, stricture ?gastritis Has provider been notified: No DS: Diagnosis Discharge Diagnosis (1) Acute respiratory failure with hypoxia: Status: Acute (2) COPD (chronic obstructive pulmonary disease): Status: Acute DS: Summary Hospital Course Hospital Course: History and physical as per admitting provider. Sean Hinkle is a 68 years old man with past medical history significant for COPD , type 2 diabetes mellitus on oral hypoglycemic agents, hyperthyroidism, hyperlipidemia, CAD and BPH presents to the emergency department complaining of productive cough of greenish sputum and worsening shortness of breath over the last several days. He is also wheezing and anxious. On evaluation patient was respiratory distress, speaking in short sentences and low O2 sats despite receiving supplemental oxygen via Oxymask (3L/min). He did not report chest pain. No acute gastrointestinal genitourinary symptoms reported. In the ED, he was found to have tachypnea and low O2. Is remarkable for leukocytosis of 12.9. Platelets and hemoglobin are normal. Venous gas showed metabolic alkalosis. There are no electrolyte imbalances. There has no lactic acidosis. Troponin and BNP are normal Renal function is normal. There is hyperglycemia, 215. Viral testing for COVID-19, RSV influenza is negative. CXR showed patchy multiple airspace opacity and postsurgical changes in the right lung. Chart review: Chest CT scan (July 27) - interval worsening of airway inflammatory changes with developing of extensive tree-in-bud nodularity in the right lung, consistent with infectious bronchiolitis. There are patchy airspace opacity in both upper lungs consistent with pneumonitis. ED tx: Albuterol 10 mg neb, oxycodone 5 mg magnesium 2 g IV, Solu-Medrol monitoring 5 mg IV, Levaquin 750 mg IV, Tessalon 100 mg p.o., Ativan 1 mg IV. Patient was admitted for acute hypoxic respiratory failure secondary to acute exacerbation of chronic obstructive pulmonary disease with associated infection bronchiolitis/pneumonitis and entero/rhino virus. Patient was treated with course of clindamycin and Levaquin. He was weaned off of high-flow, at time of discharge home O2 eval was performed and patient did not require any home oxygen he is tolerating room air. He was continued on bronchodilators and IV steroids and completed course. Is also continued on theophylline. For diabetes his oral medications were held and he was put on insulin sliding scale. For hypothyroidism was continue on Tapazole and metoprolol. For hyperlipidemia was continue on statin. For coronary artery disease he was continue aspirin, statin, beta-song, Imdur. For GERD was continued on PPI for BPH was continued on Flomax. For hypertension was continued on metoprolol, his lisinopril was held due to hyperkalemia but can be resumed on discharge. Should recheck BMP in about 1 week. For mood disorder was continue on fluoxetine. Patient is feeling better, initially plan for short-term rehab, however, patient is ambulation improved and will be discharged home. Time Attestation Discharge Coordination Time (in mins): 35 Quality: Safe Use of Opioids Does Pt have an Active Cancer Diagnosis on the Problem List?: No Quality: Stroke Does the patient have a stroke diagnosis?: No Physical Exam Vital Signs: Vital Signs: Last Vital Signs Temp 97.5 F 08/11/23 07:43 Pulse 74 08/11/23 08:50 Resp 18 08/11/23 07:44 BP 146/78 H 08/11/23 07:43 Pulse Ox 92 08/11/23 08:50 O2 Del Method Nasal Cannula 08/11/23 07:43 O2 Flow Rate 2 08/11/23 07:43 FiO2 39 08/02/23 19:45 BMI result Body Mass Index 34.0 Const: General: no acute distress, alert and awake Eyes: Sclerae: sclerae normal EOM: EOMs intact bilaterally Neck: Neck: Yes no lymphadenopathy, Yes trachea midline and Yes supple Resp: Effort & Inspection: normal respiratory effort and no respiratory distress Auscultation: clear to auscultation bilaterally Cardio: Rate: regular rate Rhythm: regular rhythm Heart sounds: no gallops, no murmurs and no rubs GI: Palpation (GI): Soft to palpation and Other GI palpation findings present ( Nontender) Auscultation: normal bowel sounds Extrem: General: Yes no pedal edema, No clubbing and No cyanosis DS: Data Data Completed and Pending Labs on day of discharge: Laboratory Results - last 24 hr 08/10/23 08/10/23 08/10/23 11:26 16:00 20:24 POC Glucose 224 H 388 H* 210 H 08/11/23 07:46 POC Glucose 132 H Discharge Plan Discharge Anticipated Discharge Date/Time: 08/11/23 10:21 Patient Disposition: Home Health Service Discharge Diagnosis: Esophageal stricture, history Acute hypoxic respiratory failure COPD exacerbation Bronchiolitis Referrals: Tanisha ROQUE [Outside] - 1 Day Gonzales Brennan MD [Primary Care Provider] - 1 Week Manolo Lucas MD [Physician] - 1 Month Discharge Medications: Continued albuterol sulfate 2.5 mg /3 mL (0.083 %) solution for nebulization 2.5 mg inhalation Q6H PRN (Reason: shortness of breath or wheezing) 30 Days Qty: 180 0RF Citrucel 500 mg tablet 500 mg PO BID Qty: 60 4RF Trelegy Ellipta 200-62.5-25 mcg blister with device 1 ea inhalation DAILY Qty: 60 6RF metoprolol succinate 25 mg tablet extended release 24 hr 25 mg PO QAM Qty: 90 3RF simethicone [Gas Relief (simethicone)] 125 mg capsule 125 mg PO QID PRN (Reason: abdominal distention) nicotine (polacrilex) 4 mg gum 4 mg buccal Q2H PRN (Reason: Nicotine Cravings) cholestyramine-aspartame [Cholestyramine Light] 4 gram powder in packet 4 g PO DAILY Rx Instructions: administer w/meal; avoid other meds within 1hr before or 4-6hr after dose gabapentin 600 mg tablet 600 mg PO TID lisinopril-hydrochlorothiazide 10-12.5 mg tablet 1 tab PO QAM isosorbide mononitrate 60 mg tablet extended release 24 hr 60 mg PO QAM aspirin 81 mg tablet,delayed release (DR/EC) 81 mg PO BEDTIME fluoxetine 40 mg capsule 40 mg PO DAILY atorvastatin 40 mg tablet 40 mg PO BEDTIME methimazole 5 mg tablet 5 mg PO QAM tamsulosin 0.4 mg capsule 0.4 mg PO BEDTIME hydroxyzine HCl 50 mg tablet 50 mg PO BEDTIME metformin 1,000 mg tablet 1,000 mg PO BID nitroglycerin 0.4 mg tablet, sublingual 0.4 mg sublingual Q5M PRN (Reason: angina) glipizide 5 mg tablet extended release 24hr 5 mg PO DAILY albuterol sulfate 90 mcg/actuation HFA aerosol inhaler 2 puff inhalation Q4-6H PRN (Reason: shortness of breath or wheezing) 30 Days Qty: 1 6RF theophylline 400 mg tablet extended release 24 hr 400 mg PO DAILY 30 Days Qty: 30 6RF famotidine 40 mg tablet 40 mg PO BEDTIME Qty: 30 3RF esomeprazole magnesium [Nexium] 40 mg capsule,delayed release(DR/EC) 40 mg PO DAILY Qty: 90 5RF Discharge Orders: Discharge Order (Routine); Ordered 08/11/23 Ordered By: Ab Collins Diet: Advance to usual diet Activity on Discharge: As tolerated Stand Alone Forms: Patient Portal Discharge page Print Language: Jordanian Care Plan Goals: recovery Health Concerns: Esophageal stricture, history Acute hypoxic respiratory failure COPD exacerbation Bronchiolitis Plan of Treatment: Follow-up with primary care provider as needed Follow-up with pulmonology in 1 month Take all medications as prescribed Assessment: See discharge summary
--- NOTE | 2023-08-11 10:43 | MHC.CM.PN ---
PT MEDICALLY CLEARED FOR DC HOME W/NEW [facility] FOR HOME OT/PT, FAMILY AT BEDSIDE AND WILL TRANSPORT
--- NOTE | 2023-08-11 10:46 | W.MHC.F2F ---
Service Date Service Date: 08/11/23 Encounter Date of encounter: 08/11/23 Reasons for Services Signs and symptoms assessed: weakness due to hospital stay Reason for residential: medication management and medication treatment Homebound: Leaving the home is medically contraindicated at this time without the asist of a device and/or another person due th the listed conditions above and below. Reason homebound: unsteady gait / fall risk Certification: Based on the above findings, I certify that this patient is confined to the home and needs intermittent residential care, physical therapy and/or speech therapy, or continues to need occupational therapy. The patient is under my care, and I have initiated the establishment of the plan of care. The patient will be followed by a physician who will periodically review the plan of care. Time Spent With Patient Time: Total time managing care of this patient today ____ minutes.
== END 2023-08-11 13:05 | disposition home health service (06) | DRG 190 ==
LOC: HO.ED 18:10 → HO.EDOVER 20:54 → HO.IMC 07-31 16:36
PROVIDERS: Hospitalist; Nurse Practitioner Acute Care; Physician Assistant; Physician Assistant Medical; Admitting Provider Internal Medicine; Emergency Provider Emergency Medicine; PCP Internal Medicine; Visit Provider Internal Medicine
DX: J44.1 Chronic obstructive pulmonary disease with (acute) exacerbation (principal); J69.0 Pneumonitis due to inhalation of food and vomit; J96.01 Acute respiratory failure with hypoxia; I47.20 Ventricular tachycardia, unspecified; E66.3 Overweight; N40.0 Benign prostatic hyperplasia without lower urinary tract symptoms; E78.5 Hyperlipidemia, unspecified; E05.90 Thyrotoxicosis, unspecified without thyrotoxic crisis or storm; I25.10 Atherosclerotic heart disease of native coronary artery without angina pectoris; R13.10 Dysphagia, unspecified; E87.5 Hyperkalemia; K22.2 Esophageal obstruction; K22.0 Achalasia of cardia; B97.89 Other viral agents as the cause of diseases classified elsewhere; K21.9 Gastro-esophageal reflux disease without esophagitis; Z68.34 Body mass index [BMI] 34.0-34.9, adult; E11.9 Type 2 diabetes mellitus without complications; F32.A Depression, unspecified; I10 Essential (primary) hypertension; Z99.81 Dependence on supplemental oxygen; Z91.199 Patient's noncompliance with other medical treatment and regimen due to unspecified reason; Z87.891 Personal history of nicotine dependence; Z79.51 Long term (current) use of inhaled steroids; Z79.82 Long term (current) use of aspirin; Z79.84 Long term (current) use of oral hypoglycemic drugs; Z79.899 Other long term (current) drug therapy
CPT/HCPCS: 0241U; 36415; 71045; 74221; 80048; 80053; 80198; 82803; 82947; 83036; 83605; 83735; 83880; 84443; 84484; 85025; 87040; 87633; 93005; 93306; 93970; 94640; 97110; 97116; 97162; 97166; 97530; 97535; 99285; C9113; J0736; J1644; J1956; J2060; J2920; J2930; J3475; Q9957

== ENCOUNTER → 2023-07-30 17:06 | Outpatient (BNV) | payer MEDICARE, SELFPAY | PROVIDERS: Admitting Provider Internal Medicine; Emergency Provider Emergency Medicine; PCP Internal Medicine; Visit Provider Internal Medicine Cardiovascular Disease | DX: R06.03 Acute respiratory distress (principal) | CPT/HCPCS: 93010 ==

== ENCOUNTER 2023-07-30 20:47 | Outpatient (BNV) | payer MEDICARE, SELFPAY | END 2023-08-04 14:10 | PROVIDERS: Admitting Provider Internal Medicine; Emergency Provider Emergency Medicine; PCP Internal Medicine; Visit Provider Physician Assistant Surgical | DX: R13.10 Dysphagia, unspecified (principal) | CPT/HCPCS: 74246 ==

== ENCOUNTER 2023-07-30 20:47 | Outpatient (BNV) | payer MEDICARE, SELFPAY | END 2023-08-06 07:00 | PROVIDERS: Admitting Provider Internal Medicine; Emergency Provider Emergency Medicine; PCP Internal Medicine; Visit Provider Internal Medicine Cardiovascular Disease | DX: I71.21 Aneurysm of the ascending aorta, without rupture (principal) | CPT/HCPCS: 93306 ==

== ENCOUNTER → 2023-07-30 20:47 | Outpatient (BNV) | payer MEDICARE, SELFPAY | PROVIDERS: Admitting Provider Internal Medicine; Emergency Provider Emergency Medicine; PCP Internal Medicine; Visit Provider Internal Medicine Gastroenterology | DX: R13.10 Dysphagia, unspecified (principal); K22.2 Esophageal obstruction | CPT/HCPCS: 99222 ==

== ENCOUNTER → 2023-07-30 20:47 | Outpatient (BNV) | payer MEDICARE, SELFPAY | PROVIDERS: Admitting Provider Internal Medicine; Emergency Provider Emergency Medicine; PCP Internal Medicine; Visit Provider Internal Medicine | DX: J96.01 Acute respiratory failure with hypoxia (principal); J44.9 Chronic obstructive pulmonary disease, unspecified | CPT/HCPCS: 99223; 99231; 99232; 99233; 99239; G0180 ==

== ENCOUNTER → 2023-07-30 20:47 | Outpatient (BNV) | payer MEDICARE, SELFPAY | PROVIDERS: Admitting Provider Internal Medicine; Emergency Provider Emergency Medicine; PCP Internal Medicine; Visit Provider Hospitalist | DX: J96.01 Acute respiratory failure with hypoxia (principal); J44.9 Chronic obstructive pulmonary disease, unspecified | CPT/HCPCS: 99223; 99231; 99232 ==

== ENCOUNTER 2023-08-14 09:44 | Day surgery (SDC) | payer MEDICARE, SELFPAY ==
--- NOTE | 2023-08-14 10:32 | MHC.SHP ---
Pre-Procedural Eval Section A - 24 Hr Update-Section A only Date of Service: 08/14/23 The patient is an INPATIENT: No The patient has been examined within 24 hours of the surgical procedure. The History & Physical has been completed within 30 days and I have reviewed it.: Yes Section B - Complete if H&P > 30 days Chief Complaint: Dysphagia, abnormal barium swallow Allergies: Allergies Allergy/AdvReac Type Severity Reaction Status Date / Time Penicillins [PENICILLINS] Allergy Severe THROAT Verified 07/30/23 16:35 SWELLING penicillin V Allergy Unknown anaphylaxis Verified 07/30/23 16:35 Plan Diagnosis/Plan: Unchanged I have reviewed the history and physical and performed a pertinent physical examination on my patient. No changes have occurred unless specified. Time Spent With Patient Time: Total time managing care of this patient today ____ minutes.
[2023-08-14 10:34] VITALS: BP 91/45; PULSE 65; RESP 20; TEMP 36.1; O2SAT 95; BMI 32.1
--- NOTE | 2023-08-14 10:42 | HO.ANESPROP2 ---
[facility] Active Problems Active Problems: All Active Problems Acute respiratory failure with hypoxia (Acute) Dysphagia (Acute) Esophageal stricture (Acute) Respiratory failure (Acute) Varicose veins of right lower extremity with inflammation (Acute) Tubular adenoma (Acute) IBS (irritable bowel syndrome) (Acute) Preop cardiovascular exam (Acute) Lung nodule (Acute) COPD (chronic obstructive pulmonary disease) (Acute) Personal history of nicotine dependence (Acute) Cough (Acute) Angina pectoris with normal coronary arteriogram (Acute) Tubular adenoma of colon (Acute ~2019) Diverticulosis (Acute) Bilateral inguinal hernia (Acute) Back pain (Acute) Anxiety and depression (Acute) BPH (benign prostatic hyperplasia) (Acute) Abnormal nuclear stress test (Acute) Chest pain (Acute) Obesity (Acute) Past Medical History Medical History (Updated 08/08/23 @ 09:45 by Manolo Lucas MD) Dysphagia Tubular adenoma Tubular adenoma IBS (irritable bowel syndrome) Personal history of nicotine dependence Diabetes mellitus type 2, controlled Tubular adenoma of colon (~2019) GERD (gastroesophageal reflux disease) H/O benign carcinoid tumor Cough Back pain Anxiety and depression Lung nodule BPH (benign prostatic hyperplasia) Hyperthyroidism Left adrenal mass HLD (hyperlipidemia) CAD (coronary artery disease) Chest pain Obesity HTN (hypertension) COPD (chronic obstructive pulmonary disease) Family History Family History Father Cancer Mother Lung cancer Brother Heart attack Family history of problems with anesthesia: No Surgical History Surgical History History of total adrenalectomy History of colonoscopy History of lithotripsy (~2014) History of bilateral inguinal hernia repair (~2014) History of esophagogastroduodenoscopy (EGD) History of prostate surgery (~2017) History of cholecystectomy (~2019) History of cardiac cath (~2010) History of Problems with Anesthesia: No Social History Social History Household Members Other:: Pt anxious and unable to respond at this time Do you presently have visiting nurse or other home services: Yes ([place]) Alcohol intake: never Comment: Patient refusing all alarms Patient Tobacco Use Status: Current everyday Tobacco user Tobacco use type: Cigarette Cigarette Packs Per Day: 0.5 Cigarettes Per Day: 10.0 Years Smoked: 50 Substance Use Type: Marijuana Advance Directives: No Advance Directives Information Provided: Yes Advance Directives Date on File: 02/09/20 service: No Meds Allergies Allergy/AdvReac Type Severity Reaction Status Date / Time Penicillins [PENICILLINS] Allergy Severe THROAT Verified 07/30/23 16:35 SWELLING penicillin V Allergy Unknown anaphylaxis Verified 07/30/23 16:35 Active Medications: Current Medications Lactated Ringer's (Lr) 1,000 mls @ 50 mls/hr IVCONT .Q20H SHAHRZAD Home Medications ?Medication ?Instructions ?Recorded ?Confirmed ?Last Taken ?Type aspirin 81 mg tablet,delayed 81 mg PO BEDTIME 03/15/20 07/30/23 07/29/23 History release atorvastatin 40 mg tablet 40 mg PO BEDTIME 03/15/20 07/30/23 07/29/23 History fluoxetine 40 mg capsule 40 mg PO DAILY 03/15/20 07/30/23 07/30/23 History hydroxyzine HCl 50 mg tablet 50 mg PO BEDTIME 03/15/20 07/30/23 07/29/23 History isosorbide mononitrate 60 mg 60 mg PO QAM 03/15/20 07/30/23 07/30/23 History tablet,extended release 24 hr lisinopril 10 1 tab PO QAM 03/15/20 07/30/23 07/30/23 History mg-hydrochlorothiazide 12.5 mg tablet methimazole 5 mg tablet 5 mg PO QAM 03/15/20 07/30/23 07/30/23 History tamsulosin 0.4 mg capsule 0.4 mg PO BEDTIME 03/15/20 07/30/23 07/29/23 History gabapentin 600 mg tablet 600 mg PO TID 06/05/20 07/30/23 07/30/23 History metformin 1,000 mg tablet 1,000 mg PO BID 12/13/20 07/30/23 07/30/23 History nitroglycerin 0.4 mg sublingual 0.4 mg sublingual Q5M PRN angina 12/13/20 07/30/23 Unknown History tablet glipizide 5 mg tablet, extended 5 mg PO DAILY 07/10/22 07/30/23 07/30/23 History release 24 hr cholestyramine-aspartame 4 gram 4 g PO DAILY 07/30/23 07/30/23 07/30/23 History oral powder for susp in a packet (Cholestyramine Light) nicotine (polacrilex) 4 mg gum 4 mg buccal Q2H PRN Nicotine 07/30/23 07/30/23 Unknown History Cravings simethicone 125 mg capsule (Gas 125 mg PO QID PRN abdominal 07/30/23 07/30/23 Unknown History Relief (simethicone)) distention Exam Airway Mallampati Class: III TM Dist: >3cm Neck ROM: Full Assessment and Plan Assessment Anesthesia Assessment: Anesthesia Plan Discussed and Chart Reviewed Final Anesthetic Review Family History of Problems with Anesthesia: No History of Problems with Anesthesia: No NPO: Yes ASA Class: III Final Preanesthetic Review: No Changes in Pt Med Stat, Meds/Allgs Chart Reviewed, Consent Obtained/Reviewed and Anes Risks/Benef Reviewed Patient Risk: Intermediate Procedure Risk: Low Anesthetic Plan Anesthetic Plan: TIVA Disposition: Standard PACU
[2023-08-14 10:49] VITALS: BP 91/45; PULSE 65; RESP 20; TEMP 36.1; O2SAT 95
[2023-08-14] MEDS: Albuterol Sulfate (0.083%) 2.5 MG/3 ML VIAL.NEB INHALE (10:54)
--- NOTE | 2023-08-14 11:03 | PC.NURSE ---
exp wheeze on left base post udn, dr. dyer evaluated (improved) ok to proceed with procedure.
[2023-08-14] MEDS: Lactated Ringers 1,000 ML 50 ML IVCONT (11:11)
--- NOTE | 2023-08-14 11:15 | P.OP_ITS ---
Operative Note Operative Note Date of Service: 08/14/23 Narrative: FLEXIBLE TRANSORAL UPPER GASTROINTESTINAL ENDOSCOPY WITH BIOPSIES AND ESOPHAGEAL BALLOON DILATION Pre-op diagnosis: GERD, Dysphagia, abnormal barium swallow Post-op diagnosis: GERD, dysphagia, Gastritis, gastric polyps Endoscopist:? Nilay Del Rosario MD Anesthesia:?MAC UPPER ENDOSCOPY Consent: Indications for the procedure and potential complications of bleeding, perforation, reaction to medications and missed diagnosis were discussed with the patient and informed consent was obtained. Instrument: Olympus GIF H 190 mid size upper endoscope Monitoring: Vital signs and clinical assessment, continuous EKG monitoring, Pulse oximetry, Carbon Dioxide monitoring and blood pressure monitoring were done throughout the procedure. Procedure: The patient was placed in the left lateral decubitis position and pre-procedure medications were administered and a bite block was placed. The endoscope was inserted into the mouth and advanced under direct vision to the third part of duodenum. A careful inspection was made as the upper endoscope was withdrawn including a retroflexed examination of the proximal stomach; Findings and interventions are described below. Findings: Larynx: Normal Esophagus: GE junction at 40 cms. Irregular Z line (biopsies during past EGD were negative for Herrera's). Mildly tortuous and dilated esophagus without stricture or ring. There was some food residue sticking to esophageal mucosa in the distal esophagus Mid size upper endoscope passed through the GE junction without resistance Empiric balloon dilation was performed with a 20 mm (60 F) CRE balloon x 60 seconds No heme noted post dilation Stomach: Mild gastric erythema (biopsies during past EGD were negative for H Pylori). A few 4-5 mms benign-appearing polyps in the gastric body - biopsied Grade 2 flap valve on retroflexed examination of the cardia. Duodenum: Normal bulb and descending duodenum. Biopsies were obtained from 3rd part of the duodenum to follow-up on increased intraepithelial lymphocytes seen on previous biopsies Intervention: Biopsies and esophageal balloon dilation as noted above Impression and Post Procedure Diagnosis: Endoscopy Findings: ESOPHAGUS: Irregular Z line (biopsies during past EGD were negative for Herrera's). Mildly tortuous and dilated esophagus without stricture or ring. There was some food residue sticking to esophageal mucosa in the distal esophagus Mid size upper endoscope passed through the GE junction without resistance Balloon dilation was performed with a 20 mm (60 F) CRE balloon x 60 seconds STOMACH: Mild gastritis and benign appearing gastric polyps DUODENUM: Normal - biopsies obtained from 3rd part of duodenum Plan: Pt has a FU appointment on 10/12/23 with Joellen Gurrola NP. Referral to [facility] for esophageal manometry ([place] go [place] [facility] [place] Above findings were reviewed with the patient and relevant handouts were given and the discharge area.
[2023-08-14 11:18] LABS: Glucose, Whole Blood 118 mg/dL (60-115)
[2023-08-14 11:49] VITALS: BP 106/66; PULSE 72; RESP 20; TEMP 36.2; O2SAT 96
[2023-08-14 12:04] VITALS: BP 143/88; PULSE 74; RESP 16; TEMP 36.2; O2SAT 95
== END 2023-08-14 12:25 | disposition home or self-care (01) ==
PROVIDERS: PCP Internal Medicine; Visit Provider Internal Medicine Gastroenterology
PROC: 0DJ08ZZ Inspection of Upper Intestinal Tract, Via Natural or Artificial Opening Endoscopic (ICD-10-PCS; CPT 43235; principal; 2023-08-14 12:00)
DX: R13.10 Dysphagia, unspecified (principal); K22.89 Other specified disease of esophagus; K21.9 Gastro-esophageal reflux disease without esophagitis; K31.7 Polyp of stomach and duodenum; K29.60 Other gastritis without bleeding; J44.9 Chronic obstructive pulmonary disease, unspecified; Z99.81 Dependence on supplemental oxygen; Z91.148 Patient's other noncompliance with medication regimen for other reason; I10 Essential (primary) hypertension; I25.10 Atherosclerotic heart disease of native coronary artery without angina pectoris; E78.5 Hyperlipidemia, unspecified; E11.9 Type 2 diabetes mellitus without complications; Z79.84 Long term (current) use of oral hypoglycemic drugs; Z79.82 Long term (current) use of aspirin; Z79.899 Other long term (current) drug therapy; Z88.0 Allergy status to penicillin; F17.210 Nicotine dependence, cigarettes, uncomplicated; Z98.890 Other specified postprocedural states
CPT/HCPCS: 43249; 43239; 82947; 88305; 88313; 88342; C1726; J2704

== ENCOUNTER → 2023-08-14 09:44 | Outpatient (BNV) | payer MEDICARE, SELFPAY | PROVIDERS: PCP Internal Medicine; Visit Provider Internal Medicine Gastroenterology | DX: K21.9 Gastro-esophageal reflux disease without esophagitis (principal); R13.10 Dysphagia, unspecified; K29.70 Gastritis, unspecified, without bleeding; K31.7 Polyp of stomach and duodenum | CPT/HCPCS: 43239; 43249 ==

== ENCOUNTER 2023-08-31 10:32 | Outpatient (REF) | payer MEDICARE, SELFPAY ==
[2023-08-31 14:45] LABS: Anion Gap 15 (12-20); Blood Urea Nitrogen 17 mg/dL (9-16); Calcium 9.4 mg/dL (8.4-10.2); Carbon Dioxide 26 mmol/L (22-29); Chloride 104 mmol/L (96-108); Estimated Glomerular Filt Rate > 60; Glucose Random 110 mg/dL (60-115); Potassium 4.2 mmol/L (3.3-5.1); Sodium 141 mmol/L (135-145)
== END 2023-08-31 10:33 | disposition home or self-care (01) ==
LOC: HO.CHCLDS 10:32
PROVIDERS: Visit Provider Internal Medicine
DX: J44.1 Chronic obstructive pulmonary disease with (acute) exacerbation (principal); J96.01 Acute respiratory failure with hypoxia; E87.5 Hyperkalemia
CPT/HCPCS: 36415; 80048

== ENCOUNTER 2023-09-29 13:53 | Outpatient (REF) | payer MEDICARE, SELFPAY ==
[2023-09-29 15:04] LABS: Anion Gap 10 (12-20); Blood Urea Nitrogen 13 mg/dL (9-16); Calcium 9.5 mg/dL (8.4-10.2); Carbon Dioxide 29 mmol/L (22-29); Chloride 105 mmol/L (96-108); Estimated Glomerular Filt Rate > 60; Glucose Random 104 mg/dL (60-115); Potassium 4.1 mmol/L (3.3-5.1); Sodium 140 mmol/L (135-145)
== END 2023-09-29 13:54 | disposition home or self-care (01) ==
LOC: HO.CHCLDS 13:53
PROVIDERS: Visit Provider Student in an Organized Health Care Education/Training Program
DX: R60.0 Localized edema (principal)
CPT/HCPCS: 36415; 80048

== ENCOUNTER 2023-10-12 08:24 | Outpatient (AMB) | payer MEDICARE, SELFPAY ==
--- NOTE | 2023-10-12 08:32 | A.OFFVIS_ITS ---
Vital Signs 10/12/23 08:39 Height 5 ft 7 in Weight 220 lb 14.451 oz BMI 34.6 BP 108/60 Blood Pressure Location Rt brachial Position Sitting Pulse 66 Pulse Source Pulse Oximeter Pulse Oximetry (%) 94 Oxygen Delivery Method Room Air Intake Visit Reasons: 3 month follow up Intake Note: Sean presents in office today for a scheduled 3 mos FUV. CC; Pt is here following an upper egd from 07/2023. Pt also was rx'd nexium 40 mg at last visit. Pt reports that their sx are being managed well with the medication. However, they are still experiencing diarrhea intermittently about 2-3 times per week. Pt also experiencing occasional bloating. 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 Continue avoiding dietary triggers and late night snacking. Staying upright for minimum 3 hours after meals discussed with patient. Patient will stay away from food that is spicy and greasy. Will stop lansoprazole and will start Nexium. Continue taking Citrucel daily. High-fiber diet discussed with patient. We also discussed with him low FODMAP diet and food recommended discussed with him. Patient was encouraged to eat smaller meals and more often. I will see him in 6 months, sooner on as needed basis. Patient is agreeable to this plan and verbalizes understanding of instructions. He was given the opportunity to ask questions and all questions answered. ? Thank you for allowing me to participate in his care Medications New esomeprazole magnesium (Nexium) 40 mg PO DAILY 90 caps 5RF K21.9 Discontinued lansoprazole Discontinued Reason: Doctor's Order 30 mg PO DAILY 30 caps 3RF K21.9 levofloxacin Discontinued Reason: Patient Completed Course 750 mg PO DAILY 7 days 7 tabs 0RF R91.1 GI CONSULT 08/06/2023. FOR ABNORMAL BARIUM SWALLOW. PATIENT ADMITTED WITH PNEUMONIA ON 07/30/2023 Plan 68 YM with COPD -noncompliant with home oxygen, type 2 diabetes mellitus on oral hypoglycemic agents, hyperthyroidism, hyperlipidemia, CAD and BPH admitted to [facility] on 07/30/23 with productive cough, worsening shortness of breath, with wheezing and anxiety. GI consulted for evaluation of dysphagia and abnormal barium swallow showing moderate to severe narrowing of the GE junction concerning for esophageal stricture versus achalasia. RECOMMENDATIONS: 1. Switch from PO to IV PPI twice daily. 2. Pt scheduled tentatively for EGD with esophageal dilation on 08/07/23 (awaiting Echo results) EGD procedure and potential complications including bleeding, perforation, reaction to anesthetic and aspiration were reviewed with the patient. 08/07/23 EGD postponed by anesthesia due to pt's respiratory status Rescheduled for 08/14/23 at 12 pm as an out patient. ADDENDUM: HOSPITAL COURSE: Patient was admitted for acute hypoxic respiratory failure secondary to acute exacerbation of chronic obstructive pulmonary disease with associated infection bronchiolitis/pneumonitis and entero/rhino virus. Patient was treated with course of clindamycin and Levaquin. He was weaned off of high-flow, at time of discharge home O2 eval was performed and patient did not require any home oxygen he is tolerating room air. He was continued on bronchodilators and IV steroids and completed course. Is also continued on theophylline. For diabetes his oral medications were held and he was put on insulin sliding scale. For hypothyroidism was continue on Tapazole and metoprolol. For hyperlipidemia was continue on statin. For coronary artery disease he was continue aspirin, statin, beta-song, Imdur. For GERD was continued on PPI for BPH was continued on Flomax. For hypertension was continued on metoprolol, his lisinopril was held due to hyperkalemia but can be resumed on discharge. Should recheck BMP in about 1 week. For mood disorder was continue on fluoxetine. Patient is feeling better, initially plan for short-term rehab, however, patient is ambulation improved and will be discharged home UPPER ENDOSCOPY 08/14/2023 Findings: Larynx: Normal Esophagus: GE junction at 40 cms. Irregular Z line (biopsies during past EGD were negative for Herrera's). Mildly tortuous and dilated esophagus without stricture or ring. There was some food residue sticking to esophageal mucosa in the distal esophagus Mid size upper endoscope passed through the GE junction without resistance Empiric balloon dilation was performed with a 20 mm (60 F) CRE balloon x 60 seconds No heme noted post dilation Stomach: Mild gastric erythema (biopsies during past EGD were negative for H Pylori). A few 4-5 mms benign-appearing polyps in the gastric body - biopsied Grade 2 flap valve on retroflexed examination of the cardia. Duodenum: Normal bulb and descending duodenum. Biopsies were obtained from 3rd part of the duodenum to follow-up on increased intraepithelial lymphocytes seen on previous biopsies Intervention: Biopsies and esophageal balloon dilation as noted above Impression and Post Procedure Diagnosis: Endoscopy Findings: ESOPHAGUS: Irregular Z line (biopsies during past EGD were negative for Herrera's). Mildly tortuous and dilated esophagus without stricture or ring. There was some food residue sticking to esophageal mucosa in the distal esophagu s Mid size upper endoscope passed through the GE junction without resistance Balloon dilation was performed with a 20 mm (60 F) CRE balloon x 60 seconds STOMACH: Mild gastritis and benign appearing gastric polyps DUODENUM: Normal - biopsies obtained from 3rd part of duodenum Plan: Referral to [facility] for esophageal manometry ([place] go [place] [facility] [place]) Above findings were reviewed with the patient and relevant handouts were given and the discharge area. TODAY'S VISIT: Patient is here today for follow-up. Patient was recently admitted to the hospital for pneumonia. Was reporting dysphagia in the past few months prior to admission and barium swallow was performed. Patient had abnormal study, GI consult done. Patient was found to have stricture at the GE junction. Dilation was performed during endoscopy. Patient was referred to [facility] for esophageal manometry. No appointment yet. Patient reports that he is taking Nexium and for the most part his symptoms are suppressed. He is reporting that he no longer has dysphagia. He continues to smoke cigarettes about 7-8 cigarettes a day. Patient is not drinking alcohol. Patient continues to have postprandial loose stools and abdominal bloating. Patient reports that he does not have any food restrictions. Patient denies any nausea or vomiting. Patient denies any melena, hematochezia, unintentional weight loss or ribbon like stools. Patient reports that he eats about 4 times a day and is taking cholestyramine with meals to help him with loose stools. Patient denies any loss of appetite. Denies any weight loss. Patient denies melena, hematochezia. [facility] Medical History Dysphagia Tubular adenoma Tubular adenoma IBS (irritable bowel syndrome) Personal history of nicotine dependence Diabetes mellitus type 2, controlled Tubular adenoma of colon (~2019) GERD (gastroesophageal reflux disease) H/O benign carcinoid tumor Cough Back pain Anxiety and depression Lung nodule BPH (benign prostatic hyperplasia) Hyperthyroidism Left adrenal mass HLD (hyperlipidemia) CAD (coronary artery disease) Chest pain Obesity HTN (hypertension) COPD (chronic obstructive pulmonary disease) Surgical History History of total adrenalectomy History of colonoscopy History of lithotripsy (~2014) History of bilateral inguinal hernia repair (~2014) History of esophagogastroduodenoscopy (EGD) History of prostate surgery (~2017) History of cholecystectomy (~2019) History of cardiac cath (~2010) Family History Father Cancer Mother Lung cancer Brother Heart attack Social History Household Members Other:: Pt anxious and unable to respond at this time Do you presently have visiting nurse or other home services: Yes ([place]) Alcohol intake: never Comment: Patient refusing all alarms Patient Tobacco Use Status: Former Tobacco user Tobacco use type: Cigarette Cigarette Packs Per Day: 0.5 Cigarettes Per Day: 10.0 Years Smoked: 50 Substance Use Type: Marijuana Advance Directives Date on File: 02/09/20 service: No Review of Systems Const Denies weight gain and Denies weight loss ENT Reports no additional complaints, Denies dysphagia and Denies odynophagia Card Reports no additional complaints Resp Reports no additional complaints GI Denies abdominal pain, Reports belching, Denies melena, Reports bloating, Denies change in bowel habits, Denies dysphagia, Denies excessive flatus, Denies dyspepsia, Denies heartburn, Denies diarrhea, Reports loose stools, Denies nausea, Denies odynophagia and Denies vomiting Reports no additional complaints Musc Reports no additional complaints Neuro Reports no additional complaints Psych Reports no additional complaints Endo Reports no additional complaints Physical Exam Vital Signs: Last Vital Signs Pulse 66 10/12/23 08:39 BP 108/60 10/12/23 08:39 Pulse Ox 94 10/12/23 08:39 Oxygen Delivery Method Room Air 10/12/23 08:39 BMI result Body Mass Index 34.6 Const General: healthy appearing and no acute distress Nutritional Appearance: obese Orientation/consciousness: patient oriented x3 Resp Effort & Inspection: normal respiratory effort, able to speak in complete sentences, no tracheal deviation and symmetric chest movement Auscultation: clear to auscultation bilaterally Cardio Rate: regular rate GI Inspection: Yes normal to inspection, No distended and Yes obesity Palpation (GI): Soft to palpation, not firm, nontender and No hepatosplenomegaly present Auscultation: normal bowel sounds General: Yes no CVA tenderness Back/Spine/Pelvis Back: no CVA tenderness Skin General skin exam: elasticity normal, turgor normal and dry skin Neuro General: patient oriented x3 Psych Appearance: grossly normal Mental Status: mental status grossly normal Assessment & Plan Assessment & Plan (1) Dysphagia: Code(s): R13.10 - Dysphagia, unspecified Category: Medical Qualifiers: Dysphagia type: unspecified Qualified Code(s): R13.10 - Dysphagia, unspecified (2) Esophageal stricture: Code(s): K22.2 - Esophageal obstruction Category: Medical (3) IBS (irritable bowel syndrome): Code(s): K58.9 - Irritable bowel syndrome without diarrhea Category: Medical Qualifiers: Irritable bowel syndrome type: with diarrhea Qualified Code(s): K58.0 - Irritable bowel syndrome with diarrhea (4) GERD (gastroesophageal reflux disease): Code(s): K21.9 - Gastro-esophageal reflux disease without esophagitis Category: Medical Qualifiers: Esophagitis presence: esophagitis presence not specified Qualified Code(s): K21.9 - Gastro-esophageal reflux disease without esophagitis (5) Diverticulosis: Code(s): K57.90 - Diverticulosis of intestine, part unspecified, without perforation or abscess without bleeding Category: Medical (6) Tubular adenoma: Code(s): D36.9 - Benign neoplasm, unspecified site Category: Medical (7) Diarrhea: Code(s): R19.7 - Diarrhea, unspecified Qualifiers: Diarrhea type: functional diarrhea Qualified Code(s): K59.1 - Functional diarrhea (8) Postprandial abdominal bloating: Code(s): R14.0 - Abdominal distension (gaseous) Plan Continue Citrucel twice a day. Continue avoiding dietary triggers. Cholestyramine with meals. Smaller meals more often. Patient is taking oxycodone for back pain. Will take Dulcolax in the evening to help him eliminate his bowels completely. Patient states that after he has bowel movement during the day postprandially he does not feel like he empties his bowels completely. Continue Nexium. Continue avoiding dietary triggers and late night snacking. Staying upright for minimum 3 hours after meals discussed with patient. Patient will return in 6 weeks, sooner on as needed basis. He is agreeable to this plan and verbalizes understanding of instructions. He was given the opportunity to ask questions and all questions answered. Thank you for allowing me to participate in his care Medications: New bisacodyl (Dulcolax (bisacodyl)) 10 mg (2 x 5 mg) PO BEDTIME 180 tabs 4RF Coding Level of Care Code Est Pt Level 4 (31958) Diagnoses Dysphagia, unspecified type R13.10 Dysphagia type: unspecified Esophageal stricture K22.2 Irritable bowel syndrome with diarrhea K58.0 Irritable bowel syndrome type: with diarrhea Gastroesophageal reflux disease, unspecified whether esophagitis present K21.9 Esophagitis presence: esophagitis presence not specified Diverticulosis K57.90 Tubular adenoma D36.9 Functional diarrhea K59.1 Diarrhea type: functional diarrhea Postprandial abdominal bloating R14.0 Time Spent (min) 40 Comment 25 minutes spent with patient and additional 15 minutes spent reviewing his records
[2023-10-12 08:39] VITALS: BP 108/60; PULSE 66; O2SAT 94; BMI 34.6
== END 2023-10-12 09:08 | disposition home or self-care (01) ==
PROVIDERS: PCP Pediatrics; Visit Provider Nurse Practitioner Family
DX: K22.2 Esophageal obstruction (principal); K58.0 Irritable bowel syndrome with diarrhea; K21.9 Gastro-esophageal reflux disease without esophagitis; K57.90 Diverticulosis of intestine, part unspecified, without perforation or abscess without bleeding; D36.9 Benign neoplasm, unspecified site
CPT/HCPCS: 99214

== ENCOUNTER → 2023-10-12 08:24 | Outpatient (BNVA) | payer MEDICARE, SELFPAY | PROVIDERS: PCP Pediatrics; Visit Provider Nurse Practitioner Family | DX: R13.10 Dysphagia, unspecified (principal); R14.0 Abdominal distension (gaseous); K22.2 Esophageal obstruction; K58.0 Irritable bowel syndrome with diarrhea; K21.9 Gastro-esophageal reflux disease without esophagitis; K57.90 Diverticulosis of intestine, part unspecified, without perforation or abscess without bleeding; K59.1 Functional diarrhea; D36.9 Benign neoplasm, unspecified site | CPT/HCPCS: 99212 ==

== ENCOUNTER 2023-12-01 15:56 | Outpatient (REF) | payer MEDICARE, SELFPAY ==
--- NOTE | ~2023-12-01 | XR_ITS ---
EXAMINATION: XR LUMBOSACRAL SPINE CLINICAL INFORMATION: Back pain, fall COMPARISON: 12/25/2021 TECHNIQUE: Three views of the lumbosacral spine. FINDINGS: Straightening of normal lordosis. Multilevel mild compression deformities and disc space narrowings. Unchanged trace retrolisthesis L3 on L4. Right sided flowing osteophytes T12-L3. Herniorrhaphy material. Vascular calcifications. XR/XR lumbar spine 2-3V IMPRESSION: 1. No acute bony pathology. 2. Degenerative type changes and other findings as described. Electronically signed by: Eliane De La Cruz MD 12/29/2023 11:37 AM EDT
== END 2023-12-01 15:57 | disposition home or self-care (01) ==
LOC: HO.XRAY 15:56
PROVIDERS: PCP Internal Medicine; Visit Provider Internal Medicine
DX: M54.9 Dorsalgia, unspecified (principal); Z91.81 History of falling
CPT/HCPCS: 72100

== ENCOUNTER 2023-12-03 13:34 | Outpatient (REF) | payer MEDICARE, SELFPAY ==
--- NOTE | ~2023-12-03 | XR_ITS ---
EXAMINATION: XR CERVICAL SPINE CLINICAL INFORMATION: Neck pain COMPARISON: CT cervical spine 09/17/2018. TECHNIQUE: 4 views of the cervical spine were obtained. FINDINGS: -There has been prior anterior fusion with plate and screw fixation of C6-7. Grossly hardware appears intact. There appears to be lucency surrounding the superior screws of diffusion within the C6 vertebral body. -Straightening of the normal lordosis. -3 mm anterolisthesis of C5 on C6. Alignment is otherwise anatomic grossly. Cannot well visualize C7-T1 interspace. -Severe disc degeneration and narrowing C3-4, with moderate narrowing C4-5 and C5-6. There is a disc prosthesis and C6-7 with apparent bony fusion through the disc space. -Normal C1-C2 articulation. -Normal facet alignment with mild degenerative facet changes throughout. -No prevertebral soft tissue abnormalities. XR/XR cervical spine 3V IMPRESSION: 1. Anterior plate and screw fusion of C6-C7. Findings suggesting loosening of the superior interbody screws of the C6 anterior fusion construct. Correlate with CT examination. 2. Diffuse spondylosis, most significant C3-4. No acute cervical spine abnormalities otherwise. Electronically signed by: Taurus Trent MD 01/25/2024 03:44 PM EDT
== END 2023-12-03 13:35 | disposition home or self-care (01) ==
LOC: HO.XRAY 13:34
PROVIDERS: Visit Provider Internal Medicine
DX: M54.2 Cervicalgia (principal)
CPT/HCPCS: 72040

== ENCOUNTER → 2023-12-03 13:38 | Outpatient (BNV) | payer MEDICARE, SELFPAY | PROVIDERS: Visit Provider Radiology Diagnostic Radiology | DX: M54.2 Cervicalgia (principal) | CPT/HCPCS: 72050 ==

== ENCOUNTER → 2023-12-23 10:50 | Outpatient (RCR) | payer MEDICARE, OTHER, SELFPAY ==
[2020-03-15 15:51] VITALS: BP 154/72; PULSE 68; RESP 14; TEMP 36.8; O2SAT 96; BMI 37.3
--- NOTE | 2020-03-15 16:00 | PM.HEMONCPN ---
Medical Summary - Medical Summary Chief complaint: follow-up for left adrenal mass. Medical Summary: DIAGNOSIS: LEFT ADRENAL MASS. BIOPSY RESULTS PENDING. Interval History Interval history: This is a pleasant 64-year-old gentleman, with PMH of HTN, DM, HLD, PH, hypothyroidism, and angina. He presents to the hospital with complaints of right lower quadrant abdominal pain. Patient reports that the symptoms started on Sunday 10/15, after he got out of his pickup truck, the pain initially was 6/10 but became 10/10. Pain was localized to the her right lower quadrant radiating to the back of the same region. knotting in nature. He received Flexeril and naproxen from his PCP which did not help. Movement makes it worse. He also noted to have had constipation. No nausea or vomiting. Patient had no urinary symptoms, no lower extremity edema. No headache, change in vision, or chest pain. No palpitations. No shortness of breath, cough or sputum production. Patient denied any recent weight loss CT abdomen done: Showed 0.8 cm subpleural noncalcified lung nodule which shows interval increase in size by 0.2 cm since 03/10/2017, there is also increasing calcified solid appearing left adrenal mass measuring 3.2 cm compared to 2.5 in 2017. FNA, from October 31 was nondiagnostic. Biopsy after left adrenal gland was done November 23 which revealed: Adrenal, left, biopsy: Fragments of adrenal cortical tissue with hemosiderin. Fragments of adrenal cortical tissue with hemosiderin are seen. Additional fragments show hyalinization/amorphous change. Clinical and radiologic correlation is suggested to determine if the current biopsy findings are consistent with the clinically stated left adrenal mass. Congo red is negative for amyloid deposition. No change to the previously rendered diagnosis. He is now here after a long hiatus. He mentioned that he went to see Dr. Sinan King at [facility] in [place].( Endocrinology.) .) He referred him to Dr. Morales.( [phone].) He is going to have excision of the left adrenal. He needs cardiac clearance. He saw Dr. Umanzor today who is going to proceed with that. Meanwhile he has ongoing pain in the left flank/ back area. He has been using Motrin and smoking pot. He did not want to take oxycodone or muscle relaxer. He denies abdominal pain nausea vomiting heartburn indigestion. Bowels are working. He noted black stool and bright red blood per rectum in the past. His appetite is good. He has gained weight. His spirits are down. Rest of the review of systems is unremarkable. Review of Systems - Constitutional Reports system reviewed and no additional complaints, except as documented, Reports fatigue, Denies anorexia, Denies fever(s) - Eyes Reports system reviewed and no additional complaints, except as documented - ENT Reports system reviewed and no additional complaints, except as documented - Cardiovascular Reports system reviewed and no additional complaints, except as documented - Respiratory Reports no additional respiratory complaints - Gastrointestinal Reports system reviewed and no additional complaints, except as documented, Reports black, tarry stools, Reports bloating, Reports bright, red blood in stools, Reports feeling full early, Reports nausea - Genitourinary Genitourinary: Reports no additional male genitourinary complaints - Musculoskeletal Reports system reviewed and no additional complaints, except as documented, Reports back pain - Psychiatric Reports system reviewed and no additional complaints, except as documented, Reports depression - Endocrine Reports no additional endocrine complaints, Reports fatigue PMFSH Medical History: Medical History (Last Updated 03/15/20 @ 11:22 by Lorraine Lara, VENDOR MANAGEMENT SPECIALIST-C) CAD (coronary artery disease) Chest pain COPD (chronic obstructive pulmonary disease) Diabetes mellitus HLD (hyperlipidemia) HTN (hypertension) Obesity Functional capacity: uses cane/walker Patient : No Family History: Family History (Last Reviewed 03/15/20 @ 12:30 by Lorraine Lara, VENDOR MANAGEMENT SPECIALIST-C) Father Cancer Mother Lung cancer Surgical History: Surgical History (Last Updated 03/15/20 @ 09:30 by Lorraine Lara NP-C) History of cardiac cath Home Medications and Allergies Home Medications Medication Instructions Recorded Confirmed Type aspirin 81 mg tablet,delayed 81 mg PO BEDTIME 03/15/20 03/15/20 History release atorvastatin 40 mg tablet 40 mg PO BEDTIME 03/15/20 03/15/20 History cyclobenzaprine 10 mg tablet 10 mg PO TID 03/15/20 03/15/20 History dexamethasone 1 mg tablet 1 mg PO BEDTIME 03/15/20 03/15/20 History doxycycline monohydrate 100 mg 100 mg PO DAILY 03/15/20 03/15/20 History capsule esomeprazole magnesium 40 mg 40 mg PO DAILY 03/15/20 03/15/20 History capsule,delayed release fenofibrate nanocrystallized 48 mg 48 mg PO QAM 03/15/20 03/15/20 History tablet fluoxetine 40 mg capsule 40 mg PO DAILY 03/15/20 03/15/20 History glipizide 10 mg tablet, extended 10 mg PO DAILY 03/15/20 03/15/20 History release 24 hr hydroxyzine HCl 50 mg tablet 50 mg PO BEDTIME 03/15/20 03/15/20 History ibuprofen 800 mg tablet 800 mg PO TID PRN 03/15/20 03/15/20 History isosorbide mononitrate 60 mg 60 mg PO QAM 03/15/20 03/15/20 History tablet,extended release 24 hr lisinopril 10 1 tab PO QAM 03/15/20 03/15/20 History mg-hydrochlorothiazide 12.5 mg tablet metformin 1,000 mg tablet 1,000 mg PO DAILY 03/15/20 03/15/20 History methimazole 5 mg tablet 5 mg PO QAM 03/15/20 03/15/20 History tamsulosin 0.4 mg capsule 0.4 mg PO BEDTIME 03/15/20 03/15/20 History Allergies Allergy/AdvReac Type Severity Reaction Status Date / Time Penicillins [PENICILLINS] Allergy Severe THROAT Unverified 01/12/20 14:52 SWELLING penicillin V Allergy Unknown anaphylaxis Verified 11/25/19 00:00 Exam Vital signs: Vital Signs Temp 98.2 F 03/15/20 15:51 Pulse 68 03/15/20 15:51 Resp 14 03/15/20 15:51 BP 154/72 H 03/15/20 15:51 Pulse Ox 96 03/15/20 15:51 Intake & Output 03/14/20 03/15/20 03/15/20 18:59 06:59 18:59 Other: Weight 108.3 kg Weight 108.3 kg Body Mass Index 37.3 - Constitutional Present: moderate distress - Routine HEENT Exam Head: Present: normal inspection ENT: Present: mucous membranes moist - Routine Neck Exam Present: full ROM - Routine Respiratory Exam Present: CTAB - Routine Cardiovascular Exam Cardiovascular: Present: RRR, S1, S2 - Routine Abdominal Exam Present: soft, nontender - Routine Rectal Exam Patient deferred: digital exam - Routine Extremities Exam Present: nontender - Routine Neurological Exam Present: alert - Detailed Neurological Exam: Coma Scale Eye Opening: Spontaneous (4) Verbal Response: Oriented (5) Motor Response: Obeys commands (6) Glascow Coma Scale Total: 15 - Routine Psychiatric Exam Present: normal affect, cooperative, depressed Progress Note: A/P (1) Left adrenal mass Status: Acute Assessment and plan: This is a pleasant 64-year-old gentleman who presented to the hospital back in October with abdominal pain. He was noted to have a left adrenal nodule that had increased in size. He was seen in the ER on October 28. CT scan revealed: Normal-appearing appendix. Stable findings from recent exam from 10/20/2019 of 4 x 8 mm right lower lobe nodule and slight interval increase in size and indeterminate left adrenal lesion with new small focus of calcification. Follow-up chest CT and dedicated CT or MR adrenal imaging should be considered. Postoperative change following low abdominal wall hernia repair with mesh. Bilateral inguinal herniascontaining fat. Slightly enlarged prostate gland and probable post TURP defect. He previously had herniorrhaphy done by Dr. Garcia. He was given pain medications. Differential diagnosis: 1. Solid tumor: Lung cancer likely, given history of heavy smoking and the pulmonary nodule. 2. Primary adrenal gland tumor: Adenoma versus carcinoma. He underwent a biopsy of the left adrenal nodule, on October 31, by IR. Unfortunately, that came back nondiagnostic. He then underwent repeat CT scan guided core biopsy by IR on November 16. This revealed: Adrenal, left, biopsy: Fragments of adrenal cortical tissue with hemosiderin. Fragments of adrenal cortical tissue with hemosiderin are seen. Additional fragments show hyalinization/amorphous change. Clinical and radiologic correlation is suggested to determine if the current biopsy findings are consistent with the clinically stated left adrenal mass. This addendum is issued to report the results of Congo red special stain. Congo red is negative for amyloid deposition. No change to the previously rendered diagnosis. From March 09: His cortisol level was 1.4.( range 4 to 22.) Aldosterone level was 3. ( normal 28.) PLAN: He is going to have surgery, excision of the adrenal gland by Dr. Morales. at [facility] .) He would need cardiology clearance. He saw Dr. Umanzor today. He will be scheduled for a stress test and echocardiogram. He is going to have upper endoscopy and colonoscopy by Dr. Perez. I called Dr. Galan's office to get a referral, so the test can be schedule expeditiously. He has an appointment with Dr. Perez on Thursday. Thank you, CC: SSS. Dr. Brennan. Dr. Gardner. Code Status FULL CODE - Time Spent With Patient Total time spent is greater than 50% in coordination of care (as documented) at patient's floor/unit and/or counseling patient: 25 - 35 minutes
== END | disposition home or self-care (01) ==
LOC: HO.ONC 03-15 15:41
PROVIDERS: PCP Internal Medicine; Visit Provider Internal Medicine Medical Oncology
DX: D49.7 Neoplasm of unspecified behavior of endocrine glands and other parts of nervous system (principal); Z01.810 Encounter for preprocedural cardiovascular examination; I25.10 Atherosclerotic heart disease of native coronary artery without angina pectoris; I10 Essential (primary) hypertension; E78.5 Hyperlipidemia, unspecified; E66.9 Obesity, unspecified; Z68.37 Body mass index [BMI] 37.0-37.9, adult; F17.200 Nicotine dependence, unspecified, uncomplicated; Z79.82 Long term (current) use of aspirin; Z79.899 Other long term (current) drug therapy
CPT/HCPCS: 93005; 99212; 99214

== ENCOUNTER 2024-01-21 10:43 | Outpatient (REF) | payer MEDICARE, SELFPAY ==
[2024-01-21 14:24] LABS: Appearance Urine Clear; Color Urine Yellow; Glucose Urine UA Negative (Negative); Leukocyte Esterase Urine Negative (Negative); Nitrite Urine Negative (Negative); PH 5.5 (5.0-9.0); Specific Gravity - Urine 1.025 (1.005-1.025); UMIC TRIGGER UA YES; Urine Blood Negative (Negative); Urine Ketones Negative (Negative); Urine Protein 300 (3+) mg/dL (Neg-Trace)
[2024-01-21 14:33] LABS: Bacteria Urine None Seen (None Seen); Hyaline Casts Urine 0-2 /LPF (0-2); RBC Urine 0-2 /HPF (0-2); Squamous Epithelial Cell Urine 0-2 /HPF (0-2); WBC Urine 0-5 /HPF (0-5)
[2024-01-21 14:40] LABS: Anion Gap 12 (12-20); Blood Urea Nitrogen 18 mg/dL (9-16); Calcium 9.5 mg/dL (8.4-10.2); Carbon Dioxide 27 mmol/L (22-29); Chloride 107 mmol/L (96-108); Estimated Glomerular Filt Rate > 60; Glucose Random 105 mg/dL (60-115); Potassium 4.3 mmol/L (3.3-5.1); Sodium 142 mmol/L (135-145)
== END 2024-01-21 10:44 | disposition home or self-care (01) ==
LOC: HO.CHCLDS 10:43
PROVIDERS: Visit Provider Internal Medicine
DX: I10 Essential (primary) hypertension (principal)
CPT/HCPCS: 36415; 80048; 81001

== ENCOUNTER 2024-02-02 08:31 | Outpatient (REF) | payer MEDICARE, SELFPAY ==
--- NOTE | ~2024-02-02 | CT_ITS ---
EXAMINATION: CT CERVICAL SPINE WITHOUT CONTRAST CLINICAL INFORMATION: Cervicalgia. Prior fusion C5-6. Assess for loosening of C6 screws. COMPARISON: CT C-spine 09/17/2018. Plain films cervical spine 12/03/2023. TECHNIQUE: Spiral CT of the cervical spine was performed in the axial plane from the skull base to the thoracic inlet without IV contrast. Sagittal, coronal, and thin section axial reformatted images were constructed from the axial data set. This CT examination was performed using dose optimization techniques as appropriate, variously including the following: *Automated exposure control *Adjustment of mA and/or kV according to patient size (this includes techniques or standardized protocols for targeted exams where dose is matched to indication/reason for exam; i.e. extremities or head) *Use of iterative reconstruction technique DLP: 515 mGy-cm FINDINGS: Alignment: -Lordotic loss, straightened. Mild right convex scoliosis, apex at C7. -3 mm degenerative retrolisthesis C3 on C4. -2 mm degenerative anterolisthesis C7 on T1 and T1 on T2. -Alignment is otherwise anatomic. Craniocervical Junction/C1-C2 Articulations: -Intact and aligned. -Degenerative changes atlantoaxial joint. Imaged Contents Posterior Fossa: -Within normal limits. Vertebral Bodies/Bones: -No compression deformities or suspicious bone lesions. No acute findings. -Fusion of C6-C7 with anterior plate and interbody screws with associated discectomy and disc graft placement. -No evidence of loosening of the C6 or C7 screws on CT. Findings on plain film are consistent with artifact. -Hardware intact, well seated, with bony fusion through the C6-7 disc space and fusion of the uncinate joints. Discs: -Severe disc degeneration C3-4 with sclerotic endplate changes. -Mild degeneration C2-3. -Moderate degeneration C4-5, C5-C6, and C7-T1. Spinal Canal: -Moderate central canal stenosis focally at C3-4. See below. -Mild to moderate narrowing at C6-7. -No additional regions of significant central canal narrowing Cervical Soft Tissues: -Global enlargement of the thyroid without discrete nodules seen. -Mild to moderate calcification bilateral carotid bulbs. -Soft tissues otherwise normal. -There is been a wedge resection right lung apex. -Mildly patulous upper esophagus. Axial Disc Space Images: C2-C3: Mild bilateral uncinate facet hypertrophy present, contributing to mild bilateral neural foraminal narrowing. No central canal narrowing. C3-C4: Diffuse disc osteophytic ridge complex present with a superimposed diffuse disc bulge, combined with severe right greater than left uncinate spurring, and mild bilateral facet degeneration contributes to moderate to severe central canal stenosis, with AP diameter of the canal narrowed to 6 mm (series 4, image 48). There is severe right and moderate to severe left neural foraminal stenosis. C4-C5: There is a central disc protrusion which is mildly asymmetrically prominent into the left lateral recess. This indents upon the ventral thecal sac, but only results in mild to moderate central canal stenosis. Mild bilateral uncinate spurring and facet spurring contributes to mild bilateral left greater than right neural foraminal narrowing. C5-C6: Central disc protrusion with broad-based present, indenting on the ventral thecal sac, and possibly contacting the cord. Mild to moderate central stenosis. Uncinate spurring and facet spurring bilaterally contribute to moderate right and mild left neural foraminal narrowing. C6-C7: Fusion and discectomy at this level. Bony fusion through the disc space. There is a diffuse disc osteophytic ridge complex slightly asymmetrically prominent to the right into the right lateral recess. This indents upon the ventral thecal sac, may contact and mildly impinges the right aspect of the cord. There is moderate central canal stenosis, and moderate right subarticular recess stenosis. Bilateral uncinate spurring is present, contributing to severe bilateral neural foraminal encroachment right greater than left. C7-T1: No central canal narrowing. Right greater than left facet and uncinate spurring contributes to moderate bilateral neural foraminal narrowing. CT/CT cervical spine wo IV con IMPRESSION: 1. Multilevel cervical spondylosis, moderate in severity as detailed above, most significant C3-4. There is a mild dextroconvex scoliosis, apex at C6-7. 2. Intact C6-7 plate and screw anterior fusion, with no evidence of screw loosening on CT exam. Finding on plain film was likely artifact. There is bony fusion through the disc space at C6-7. 3. At least moderate central canal stenosis at C3-4, and moderate central canal stenosis with right lateral recess stenosis at C6-7 as detailed. 4. See above for additional details and ancillary findings. . Electronically signed by: Taurus Trent MD 04/04/2024 11:38 AM EST
== END 2024-02-02 08:32 | disposition home or self-care (01) ==
LOC: HO.CT 08:31
PROVIDERS: PCP Internal Medicine; Visit Provider Internal Medicine
DX: M54.2 Cervicalgia (principal)
CPT/HCPCS: 72125

== ENCOUNTER → 2024-02-02 08:33 | Outpatient (BNV) | payer MEDICARE, SELFPAY | PROVIDERS: PCP Internal Medicine; Visit Provider Radiology Diagnostic Radiology | DX: M54.2 Cervicalgia (principal); Z98.890 Other specified postprocedural states | CPT/HCPCS: 72125 ==

== ENCOUNTER 2024-02-26 13:56 | Outpatient (REF) | payer MEDICARE, SELFPAY ==
[2024-02-26 18:23] LABS: Cholesterol 137 mg/dL (<200); HDL Cholesterol 37 mg/dL (>40); LDL Cholesterol Calculated 50 mg/dL (<100); Triglycerides 253 mg/dL (<150)
[2024-02-26 18:40] LABS: Creatinine Urine 122.05 mg/dL
[2024-02-26 18:59] LABS: Microalbum/Creatinine Ratio Ur 1164.2 ug/mg cr (<30)
== END 2024-02-26 13:57 | disposition home or self-care (01) ==
LOC: HO.CHCLDS 13:56
PROVIDERS: Visit Provider Internal Medicine
DX: E11.40 Type 2 diabetes mellitus with diabetic neuropathy, unspecified (principal)
CPT/HCPCS: 36415; 80061; 82043; 82570

== ENCOUNTER 2024-03-01 09:32 | Outpatient (AMB) | payer MEDICARE, SELFPAY ==
[2024-03-01 09:36] VITALS: BP 122/64; PULSE 68; O2SAT 94; BMI 35.7
--- NOTE | 2024-03-01 09:36 | MHC.OFFVIS ---
Vital Signs 03/01/24 09:36 Height 5 ft 7 in Weight 228 lb 2.855 oz BMI 35.7 BP 122/64 Blood Pressure Location Rt brachial Position Sitting Pulse 68 Pulse Source Doppler Pulse Oximetry (%) 94 Oxygen Delivery Method Room Air Intake Visit Reasons: COPD Allergies Penicillins [PENICILLINS] Allergy (Severe, Verified 10/12/23 08:37) THROAT SWELLING penicillin V Allergy (Unknown, Verified 10/12/23 08:37) anaphylaxis HPI HPI COPD: Details: 68-year-old gentleman, active 40+ pack-year smoker, r followed for pulmonary nodules and COPD.? He denies family history of lung diseases.? 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 He completed a follow-up CT chest that showed increasing size in his right lower nodule from 8 up to 10 mm and a new right upper lobe 7 mm nodule.? Patient was evaluated by thoracic surgery and decision has been reached to resect right-sided pulmonary nodules with wedge resection with one being a benign tumour and another a non tumour nodule. His most recent follow-up CT scan from July of 2023 shows no worrisome nodules.? He has been using Trelegy, theophylline, and albuterol MDI with slowly worsening baseline control of his underlying COPD. Today his he is complaining of bronchitic exacerbation and also worsening orthopnea and lower extremity edema. [facility] Medical History Dysphagia Tubular adenoma Tubular adenoma IBS (irritable bowel syndrome) Personal history of nicotine dependence Diabetes mellitus type 2, controlled Tubular adenoma of colon (~2019) GERD (gastroesophageal reflux disease) H/O benign carcinoid tumor Cough Back pain Anxiety and depression Lung nodule BPH (benign prostatic hyperplasia) Hyperthyroidism Left adrenal mass HLD (hyperlipidemia) CAD (coronary artery disease) Chest pain Obesity HTN (hypertension) COPD (chronic obstructive pulmonary disease) Surgical History History of total adrenalectomy History of colonoscopy History of lithotripsy (~2014) History of bilateral inguinal hernia repair (~2014) History of esophagogastroduodenoscopy (EGD) History of prostate surgery (~2017) History of cholecystectomy (~2019) History of cardiac cath (~2010) Family History Father Cancer Mother Lung cancer Brother Heart attack Social History Household Members Other:: Pt anxious and unable to respond at this time Do you presently have visiting nurse or other home services: Yes ([place]) Alcohol intake: never Comment: Patient refusing all alarms Patient Tobacco Use Status: Former Tobacco user Tobacco use type: Cigarette Cigarette Packs Per Day: 0.5 Cigarettes Per Day: 10.0 Years Smoked: 50 Substance Use Type: Marijuana Advance Directives Date on File: 02/09/20 service: No Review of Systems Const Denies daytime sleepiness, Denies excessive sweating, Reports fatigue, Denies fever(s), Reports lethargy, Denies malaise, Denies night sweats, Denies snoring and Denies weight loss Eyes Denies blurry vision and Denies itchy eyes ENT Denies nasal congestion, Denies post nasal drip, Denies sinus pain, Denies sinus pressure and Denies other ( Thrush) Card Denies chest pain, Reports pedal edema, Denies dyspnea, Reports dyspnea on exertion, Reports orthopnea and Denies paroxysmal nocturnal dyspnea Resp Reports cough, Denies hemoptysis, Reports excessive phlegm production, Denies dyspnea, Reports dyspnea on exertion, Denies snoring and Denies wheezing GI Denies abdominal pain and Denies heartburn Musc Denies myalgias, Denies arthralgias and Denies joint swelling Skin/Breast Denies rash Neuro Denies memory loss and Denies seizure-like activity Psych Denies abnormal sleep pattern, Denies anxiety and Denies memory loss Endo Denies excessive sweating, Reports fatigue and Denies heat intolerance Kwasi/Lymph Denies easy bruising Aller/Immun Denies itchy eyes, Denies seasonal rhinorrhea and Denies wheezing Physical Exam Vital Signs: Last Vital Signs Pulse 68 03/01/24 09:36 BP 122/64 03/01/24 09:36 Pulse Ox 94 03/01/24 09:36 Oxygen Delivery Method Room Air 03/01/24 09:36 BMI result Body Mass Index 35.7 Const General: no acute distress and alert Nutritional Appearance: not obese Orientation/consciousness: Other orientation findings ( oriented) HEENT Head: Yes atraumatic Eyes General: appearance normal, both eyes and all related structures Sclerae: sclerae normal EOM: EOMs intact bilaterally Neck Neck: Yes supple Lymphatic: no lymphadenopathy noted Resp Effort & Inspection: normal respiratory effort and no use of accessory muscles Auscultation: clear to auscultation bilaterally Cardio Rate: regular rate Rhythm: regular rhythm Heart sounds: no gallops, no murmurs and no rubs Skin General skin exam: other ( warm) Extrem General: No clubbing, No cyanosis and Yes edema (1+ bilateral) Assessment & Plan Assessment & Plan (1) COPD (chronic obstructive pulmonary disease): Code(s): J44.9 - Chronic obstructive pulmonary disease, unspecified Category: Medical Plan: Slowly worsening control, but also with a bronchitic exacerbation. Will treat with a course of Levaquin. Continue baseline regimen of Trelegy, theophylline, duo nebs, and albuterol MDI. (2) Lung nodule: Code(s): R91.1 - Solitary pulmonary nodule Category: Medical Plan: No worrisome nodules on most recent CT scan from July of 2023, continue with yearly screening, next in July of 2024, ordered. (3) Personal history of nicotine dependence: Comment: (current smoker, 40+PYH) Code(s): Z87.891 - Personal history of nicotine dependence Category: Medical Plan: Patient is interested in quitting smoking. He previously tried to use nicotine replacement with poor results. Will start on Chantix. (4) Orthopnea: Code(s): R06.01 - Orthopnea Category: Medical Plan: With worsening lower extremity edema and orthopnea, will start on Lasix 40 mg daily. Orders: Orders CT lung screening 07/30/24 Z87.891 - Personal history of nicotine dependence Medications: New varenicline (Chantix Starting Month Box) PO PER PKG DIR 53 ea 0RF levofloxacin 500 mg PO DAILY 7 tabs 0RF furosemide 40 mg PO QAM 30 tabs 6RF Coding Level of Care Code Est Pt Level 4 (42637) Complex EM visit Add On G2211 Diagnoses COPD (chronic obstructive pulmonary disease) J44.9 Lung nodule R91.1 Personal history of nicotine dependence Z87.891 Orthopnea R06.01
== END 2024-03-01 09:58 | disposition home or self-care (01) ==
LOC: HO.HPS 09:33
PROVIDERS: PCP Internal Medicine; Visit Provider Internal Medicine Pulmonary Disease
DX: J44.9 Chronic obstructive pulmonary disease, unspecified (principal); R91.1 Solitary pulmonary nodule; Z87.891 Personal history of nicotine dependence; R06.01 Orthopnea
CPT/HCPCS: 99214; G2211

== ENCOUNTER → 2024-03-01 09:32 | Outpatient (BNVA) | payer MEDICARE, SELFPAY | PROVIDERS: PCP Internal Medicine; Visit Provider Internal Medicine Pulmonary Disease | DX: J44.9 Chronic obstructive pulmonary disease, unspecified (principal); R91.1 Solitary pulmonary nodule; R06.01 Orthopnea; Z87.891 Personal history of nicotine dependence | CPT/HCPCS: 99212 ==

== ENCOUNTER 2024-03-29 10:33 | Outpatient (AMB) | payer MEDICARE, SELFPAY ==
[2024-03-29 10:35] VITALS: BP 111/67; PULSE 62; O2SAT 96; BMI 34.5
--- NOTE | 2024-03-29 10:35 | MHC.OFFVIS ---
Vital Signs 03/29/24 10:35 Height 5 ft 7 in Weight 220 lb BMI 34.5 BP 111/67 Blood Pressure Location Lt brachial Position Sitting Pulse 62 Pulse Source Doppler Pulse Oximetry (%) 96 Oxygen Delivery Method Room Air Intake Visit Reasons: COPD Allergies Penicillins [PENICILLINS] Allergy (Severe, Verified 03/29/24 10:41) THROAT SWELLING penicillin V Allergy (Unknown, Verified 03/29/24 10:41) anaphylaxis HPI HPI COPD: Details: 68-year-old gentleman, active 40+ pack-year smoker, r followed for pulmonary nodules and COPD.? He denies family history of lung diseases.? 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 He completed a follow-up CT chest that showed increasing size in his right lower nodule from 8 up to 10 mm and a new right upper lobe 7 mm nodule.? Patient was evaluated by thoracic surgery and decision has been reached to resect right-sided pulmonary nodules with wedge resection with one being a benign tumour and another a non tumour nodule. His most recent follow-up CT scan from July of 2023 shows no worrisome nodules.? He has been using Trelegy, theophylline, and albuterol MDI/nebs with reasonable control of his underlying COPD. He was restarted on diuretic with improvement in his dyspnea on exertion and orthopnea. [facility] Medical History Dysphagia Tubular adenoma Tubular adenoma IBS (irritable bowel syndrome) Personal history of nicotine dependence Diabetes mellitus type 2, controlled Tubular adenoma of colon (~2019) GERD (gastroesophageal reflux disease) H/O benign carcinoid tumor Cough Back pain Anxiety and depression Lung nodule BPH (benign prostatic hyperplasia) Hyperthyroidism Left adrenal mass HLD (hyperlipidemia) CAD (coronary artery disease) Chest pain Obesity HTN (hypertension) COPD (chronic obstructive pulmonary disease) Surgical History History of total adrenalectomy History of colonoscopy History of lithotripsy (~2014) History of bilateral inguinal hernia repair (~2014) History of esophagogastroduodenoscopy (EGD) History of prostate surgery (~2017) History of cholecystectomy (~2019) History of cardiac cath (~2010) Family History Father Cancer Mother Lung cancer Brother Heart attack Social History Household Members Other:: Pt anxious and unable to respond at this time Do you presently have visiting nurse or other home services: Yes ([place]) Alcohol intake: never Comment: Patient refusing all alarms Patient Tobacco Use Status: Former Tobacco user Tobacco use type: Cigarette Cigarette Packs Per Day: 0.5 Cigarettes Per Day: 10.0 Years Smoked: 50 Substance Use Type: Marijuana Advance Directives Date on File: 02/09/20 service: No Review of Systems Const Denies daytime sleepiness, Denies excessive sweating, Denies fatigue, Denies fever(s), Denies lethargy, Denies malaise, Denies night sweats, Denies snoring and Denies weight loss Eyes Denies blurry vision and Denies itchy eyes ENT Denies nasal congestion, Denies post nasal drip, Denies sinus pain, Denies sinus pressure and Denies other ( Thrush) Card Denies chest pain, Denies pedal edema, Denies dyspnea, Reports dyspnea on exertion, Denies orthopnea and Denies paroxysmal nocturnal dyspnea Resp Denies cough, Denies hemoptysis, Denies excessive phlegm production, Denies dyspnea, Reports dyspnea on exertion, Denies snoring and Denies wheezing GI Denies abdominal pain and Denies heartburn Musc Denies myalgias, Denies arthralgias and Denies joint swelling Skin/Breast Denies rash Neuro Denies memory loss and Denies seizure-like activity Psych Denies abnormal sleep pattern, Denies anxiety and Denies memory loss Endo Denies excessive sweating, Denies fatigue and Denies heat intolerance Kwasi/Lymph Denies easy bruising Aller/Immun Denies itchy eyes, Denies seasonal rhinorrhea and Denies wheezing Physical Exam Vital Signs: Last Vital Signs Pulse 62 03/29/24 10:35 BP 111/67 03/29/24 10:35 Pulse Ox 96 03/29/24 10:35 Oxygen Delivery Method Room Air 03/29/24 10:35 BMI result Body Mass Index 34.5 Const General: no acute distress and alert Nutritional Appearance: not obese Orientation/consciousness: Other orientation findings ( oriented) HEENT Head: Yes atraumatic Eyes General: appearance normal, both eyes and all related structures Sclerae: sclerae normal EOM: EOMs intact bilaterally Neck Neck: Yes supple Lymphatic: no lymphadenopathy noted Resp Effort & Inspection: normal respiratory effort and no use of accessory muscles Auscultation: clear to auscultation bilaterally Cardio Rate: regular rate Rhythm: regular rhythm Heart sounds: no gallops, no murmurs and no rubs Skin General skin exam: other ( warm) Extrem General: No clubbing, No cyanosis and Yes edema (1+ bilateral) Assessment & Plan Assessment & Plan (1) COPD (chronic obstructive pulmonary disease): Code(s): J44.9 - Chronic obstructive pulmonary disease, unspecified Category: Medical Plan: Reasonably well controlled on current regimen of Trelegy, theophylline, and albuterol MDI/nebs. Continue current regimen. (2) Orthopnea: Code(s): R06.01 - Orthopnea Category: Medical Plan: Improved control on Lasix 40 mg daily. Continue current regimen. (3) Personal history of nicotine dependence: Comment: (current smoker, 40+PYH) Code(s): Z87.891 - Personal history of nicotine dependence Category: Medical Plan: Continue with yearly lung cancer screening, next in July of 2023. Ordered. Medications: Refilled albuterol sulfate 90 mcg/actuation 2 puffs inhalation Q4-6H 30 days PRN 1 ea 6RF shortness of breath or wheezing [id number] 200-62.5-25 mcg (Trelegy Ellipta) 1 ea inhalation DAILY 60 ea 6RF theophylline ER 400 mg PO QAM 30 tabs 6RF Coding Level of Care Code Est Pt Level 4 (39703) Complex EM visit Add On G2211 Diagnoses COPD (chronic obstructive pulmonary disease) J44.9 Orthopnea R06.01 Personal history of nicotine dependence Z87.891
--- OUTSIDE RECORDS SUMMARY | 2024-04-05 12:38 | XMS_ITS | Continuity of Care Document ---
Author Organization [facility] Address [address] [place] [address]- Care Team Providers Care Cargo And Container Inspector Name Role Phone Mika COLBY, Gonzales Primary Care Physician Encounter [facility] [place] Date(s): 03/02/24 - 04/01/24 [facility] [address], [place] [address] Encounter Type: Triage Allergies, Adverse Reactions, Alerts Substance Criticality Severity Reaction Reaction Severity Status penicillin respiratory distress Active Immunizations Given and Recorded Vaccine Date Status Refusal Reason pneumococcal 23-valent vaccine 1 07/31/11 Given 1Early/Late Reason: Patient Not Available/Off Unit Medications Albuterol (Eqv-ProAir HFA) 90 mcg/inh inhalation aerosol INHALE TWO PUFFS EVERY 4 TO 6 HOURS NEEDED SHORTNESS OF BREATH OR FOR WHEEZING Start Date: 11/06/22 Status: Ordered Repeat number: 1 aspirin 81 mg oral tablet 1 tablet = 81 mg, By Mouth, Daily at bedtime, 0 Refills, Maintenance, 02/23/19 2:39:05 PM EDT Start Date: 02/23/19 Status: Ordered Repeat number: 1 atorvastatin 40 mg oral tablet 1 tablet = 40 mg, By Mouth, Daily at bedtime, 0 Refills, Maintenance, 06/13/14 9:38:52 AM EST Start Date: 06/13/14 Status: Ordered Repeat number: 1 docusate-senna 50 mg-187 mg oral tablet TAKE ONE TABLET AT BEDTIME NEEDED FOR CONSTIPATION Start Date: 11/06/22 Status: Ordered Repeat number: 1 gabapentin 600 mg oral tablet TAKE ONE TABLET THREE TIMES DAILY IN THE MORNING, EVENING AND BEDTIME Start Date: 11/06/22 Status: Ordered Repeat number: 1 GlipiZIDE = 10 mg, By Mouth, Daily in AM, 0 Refills, Maintenance, 06/13/14 9:37:20 AM EST Start Date: 06/13/14 Status: Ordered Repeat number: 1 hydrochlorothiazide-lisinopril 12.5 mg-10 mg oral tablet TAKE ONE TABLET EVERY MORNING Start Date: 11/06/22 Status: Ordered Repeat number: 1 hydrOXYzine hydrochloride 50 mg oral tablet TAKE ONE TABLET AT BEDTIME Start Date: 11/06/22 Status: Ordered Repeat number: 1 isosorbide mononitrate 60 mg oral tablet, extended release 1 tablet = 60 mg, By Mouth, Daily in AM, 0 Refills, Maintenance, 06/13/14 9:40:29 AM EST Start Date: 06/13/14 Status: Ordered Repeat number: 1 lansoprazole 30 mg oral enteric coated capsule TAKE ONE CAPSULE EVERY MORNING Start Date: 11/06/22 Status: Ordered Repeat number: 1 metformin 1000 mg oral tablet 1 tablet = 1,000 mg, By Mouth, 2 times a day, 0 Refills, Maintenance, 06/13/14 9:38:00 AM EST Start Date: 06/13/14 Status: Ordered Repeat number: 1 methimazole 5 mg oral tablet 1, tablet, By Mouth, Daily in AM, # 30 tablet, Refills 6, Tot. Refills 6, Maintenance, 02/18/24 1:31:00 PM EDT, Route to Pharmacy Electronically, [facility], 5.7, cm, 11/07/22 15:17:00 EDT, Height, 94.1, kg, 11/07/22 4:07:00 EDT, Dry Weight Start Date: 02/18/24 Status: Ordered Quantity: 30.0 Unit: tablet Repeat number: 7 Metoprolol Succinate ER 25 mg oral tablet, extended release TAKE ONE TABLET BY MOUTH EVERY MORNING Start Date: 11/06/22 Status: Ordered Repeat number: 1 naloxone 4 mg/0.1 mL nasal spray FOR SUSPECTED OPIOID OVERDOSE. SPRAY 0.1mL IN ONE NOSTRIL. REPEAT IN ALTERNATE NOSTRIL EVERY 2-3 MINUTES IF NEEDED. SEEK MEDICAL ATTENTION IMMEDIATELY EVEN IF PT RESPONDS. Start Date: 11/06/22 Status: Ordered Repeat number: 1 oxyCODONE 5 mg oral tablet TAKE ONE TABLET BY MOUTH EVERY TWELVE HOURS NEEDED FOR SEVERE PAIN Start Date: 11/06/22 Status: Ordered Repeat number: 1 pantoprazole 40 mg oral delayed release tablet 1 tablet = 40 mg, By Mouth, Daily, # 90 tablet, 0 Refills, Maintenance, 01/17/22 2:10:00 PM EDT, EC Tablet Start Date: 01/17/22 Status: Ordered Quantity: 90.0 Unit: tablet Repeat number: 1 Spiriva Respimat 60 2 puffs, Inhalation, Daily at supper, 0 Refills, Maintenance, 02/26/15 8:08:21 AM EST Start Date: 02/26/15 Status: Ordered Repeat number: 1 tamsulosin 0.4 mg oral capsule 1 capsule = 0.4 mg, By Mouth, Daily at bedtime, 0 Refills, Maintenance, 06/13/14 9:39:39 AM EST Start Date: 06/13/14 Status: Ordered Repeat number: 1 Trelegy Ellipta 200 mcg-62.5 mcg-25 mcg/inh inhalation powder INHALE 1 PUFF DAILY AT THE SAME TIME EACH DAY Start Date: 11/06/22 Status: Ordered Repeat number: 1 Tylenol 8 HR Arthritis Pain = 1,300 mg, By Mouth, Every 8 hours, PRN Pain , Moderate, 0 Refills, Maintenance, 09/04/15 8:45:21 AM EDT Start Date: 09/04/15 Status: Ordered Repeat number: 1 Vitamin D3 2000 intl units oral capsule TAKE ONE CAPSULE EVERY MORNING Start Date: 11/06/22 Status: Ordered Repeat number: 1 Problem List Condition Confirmation Course Effective Dates Status Health Status Informant Achalasia Confirmed Active Cervical radiculopathy Confirmed Active COPD (chronic obstructive pulmonary disease) Confirmed Active CAD (coronary artery disease) Confirmed Active COVID-19 1 Confirmed 11/07/22 Active Diabetes mellitus Confirmed Active GERD (gastroesophageal reflux disease) Confirmed Active Hypercholesteremia Confirmed Active Hypertension Confirmed Active Obese class I Confirmed Active CORIE (obstructive sleep apnea) Confirmed Active Tobacco abuse Confirmed Active 1Problem added by Discern Expert Social History Social History Type Response Smoking Status Current every day sm oker; Type: Cigarettes; Other: Approx 1 pack per day; Tobacco use times per day: 10 cigarettes/day; Started at age: 13; entered on: 11/11/16 Sex Sex Representation Male (finding) Implantable Device List Procedure Provider Procedure Date Device Type Site Discectomy and Fusion Anterior Cervical Claire Duggan DO 11/09/18 Unknown Cervical S pine Device Identifier Serial Number Lot or Batch Number Manufacturing Date Expiration Date Distinct Identification Code MRI Safety Implantable Status Assigning Authority Unknown [id number] Unknown Unknown 05/04/21 Unknown Unknown Active Unknown Patient Care team information Care Team Personnel Name: Gonzales Brennan MD Position: [facility] Outreach Member Role: PCP Address: [address] [place] [address] Telecom: Name: Mariam Woo RN Position: [facility] RN Member Role: Primary Care Nurse Name: Rebecca San RN Position: [facility] RN Member Role: Primary Care Nurse Name: Paula Pascual RN Position: [facility] [place] Pump Operator Member Role: Primary Care Nurse Care Team Related Persons Name: EMMANUELLE RODARTE Name: HELENA BALBUENA Name: PRIYANKA BALBUENA Insurance Providers Guarantor name: SHANNON BALBUENA Health Plan Information #: 1 Payer: PAULINO Member Number: NA Policy Number: NA Group Number: NA
--- OUTSIDE RECORDS SUMMARY | 2024-04-05 12:38 | XMS_ITS | Continuity of Care Document ---
Author Organization [facility] Address [address] [place] [address]- Care Team Providers Care Supervisor Net Making Name Role Phone Mika COLBY, Gonzales Primary Care Physician [phone] Encounter [facility] Date(s): 02/18/24 - 03/19/24 [facility] [address], [place] [address] [place] Attending Physician: Main Howard Admitting Physician: Main Howard Referring Physician: Main Howard Encounter Type: Triage Allergies, Adverse Reactions, Alerts [...] 1:31:00 PM EDT, Route to Pharmacy Electronically, [facility], 5.7, cm, 11/07/22 15:17:00 EDT, Height, [...] MRI Safety Implantable Status Assigning Authority Unknown [id number] Unknown Unknown 05/04/21 Unknown Unknown Active Unknown Laboratory * Event Display: Laboratory Result Scanned Authored Date: * Event Display: Laboratory Result Scanned Authored Date: Radiology * Event Display: [place] Nuclear Medicine, Non-BH Authored Date: Patient Care team information Care Team Personnel Name: Gonzales Brennan MD Position: [facility] Outreach Member Role: PCP Address: [address] [place] [address] Telecom: Name: Mariam Woo RN Position: [facility] RN Member Role: Primary Care Nurse Name: Rebecca San RN Position: [facility] RN Member Role: Primary Care Nurse Name: Paula Pascual RN Position: [facility] Hospital Slot Manager Member Role: Primary Care Nurse Care Team Related Persons Name: EMMANUELLE RODARTE Name: HELENA BALBUENA Name: PRIYANKA BALBUENA Insurance Providers Guarantor name: SHANNON BALBUENA Health Plan Information #: 1 Payer: PAULINO Member Number: NA Policy Number: NA Group Number: NA
== END 2024-03-29 11:04 | disposition home or self-care (01) ==
PROVIDERS: PCP Internal Medicine; Visit Provider Internal Medicine Pulmonary Disease
DX: J44.9 Chronic obstructive pulmonary disease, unspecified (principal); R06.01 Orthopnea; Z87.891 Personal history of nicotine dependence
CPT/HCPCS: 99214; G2211

== ENCOUNTER → 2024-03-29 10:33 | Outpatient (BNVA) | payer MEDICARE, SELFPAY | PROVIDERS: PCP Internal Medicine; Visit Provider Internal Medicine Pulmonary Disease | DX: J44.9 Chronic obstructive pulmonary disease, unspecified (principal); R06.01 Orthopnea; Z87.891 Personal history of nicotine dependence | CPT/HCPCS: 99212 ==

== ENCOUNTER 2024-06-21 09:37 | Outpatient (AMB) | payer MEDICARE, SELFPAY ==
[2024-06-21 09:38] VITALS: BP 110/60; PULSE 71; BMI 35.2
--- NOTE | 2024-06-21 09:38 | MHC.OFFVIS ---
Vital Signs 06/21/24 09:38 Height 5 ft 7 in Weight 224 lb 13.944 oz BMI 35.2 BP 110/60 Blood Pressure Location Lt brachial Position Sitting Pulse 71 Pulse Source Monitor Intake Visit Reasons: 2 yr follow up w/ekg Allergies Penicillins [PENICILLINS] Allergy (Severe, Verified 03/29/24 10:41) THROAT SWELLING penicillin V Allergy (Unknown, Verified 03/29/24 10:41) anaphylaxis Medication List - Last Reconciled 06/21/24 by Jonah Umanzor MD albuterol sulfate 2.5 mg (3 mL) inhalation Q6H PRN 30 days albuterol sulfate 90 mcg/actuation 2 puffs inhalation Q4-6H PRN 30 days aspirin 81 mg PO BEDTIME atorvastatin 40 mg PO BEDTIME bisacodyl (Dulcolax (bisacodyl)) 10 mg (2 x 5 mg) PO BEDTIME cholecalciferol (vitamin D3) 50 mcg PO DAILY cholestyramine-aspartame 4 gram (Cholestyramine Light) 4 grams PO DAILY esomeprazole magnesium (Nexium) 40 mg PO DAILY famotidine 40 mg PO BEDTIME fluoxetine 40 mg PO DAILY fisiseryknr-ysqjzpziu-nogcjwim 200-62.5-25 mcg (Trelegy Ellipta) 1 ea inhalation DAILY furosemide 40 mg PO QAM gabapentin 600 mg PO TID glipizide ER 5 mg PO DAILY hydroxyzine HCl 50 mg PO BEDTIME isosorbide mononitrate ER 60 mg PO QAM levofloxacin 500 mg PO DAILY lisinopril-hydrochlorothiazide 10-12.5 mg 1 tab PO QAM metformin 1,000 mg PO BID methimazole 5 mg PO QAM methylcellulose (laxative) (Citrucel) 500 mg PO BID metoprolol succinate ER 25 mg PO QAM naloxone 4 mg/actuation intranasal nicotine (polacrilex) 4 mg buccal Q2H PRN nitroglycerin 0.4 mg sublingual Q5M PRN simethicone (Gas Relief (simethicone)) 125 mg PO QID PRN tamsulosin 0.4 mg PO BEDTIME theophylline ER 400 mg PO QAM varenicline tartrate (Chantix Starting Month Box) PO PER PKG DIR HPI Comments Details: Sean comes for follow-up. He was having chest pain on exertion when he climbs half way up a flight of stairs and has to stop for few minutes. He also gets short of breath and fatigued when he walks half a block but no chest pain at that time. Denies any symptoms at rest. Unfortunately continues to smoke about half a pack a day. Denies any worsening or heart failure symptoms. Denies any lightheadedness, syncope. No prolonged palpitation irregular heartbeat. Takes all his medications. [facility] Medical History Dysphagia Tubular adenoma Tubular adenoma IBS (irritable bowel syndrome) Personal history of nicotine dependence Diabetes mellitus type 2, controlled Tubular adenoma of colon (~2019) GERD (gastroesophageal reflux disease) H/O benign carcinoid tumor Cough Back pain Anxiety and depression Lung nodule BPH (benign prostatic hyperplasia) Hyperthyroidism Left adrenal mass HLD (hyperlipidemia) CAD (coronary artery disease) Chest pain Obesity HTN (hypertension) COPD (chronic obstructive pulmonary disease) Surgical History History of total adrenalectomy History of colonoscopy History of lithotripsy (~2014) History of bilateral inguinal hernia repair (~2014) History of esophagogastroduodenoscopy (EGD) History of prostate surgery (~2017) History of cholecystectomy (~2019) History of cardiac cath (~2010) Family History Father Cancer Mother Lung cancer Brother Heart attack Social History Household Members Other:: Pt anxious and unable to respond at this time Do you presently have visiting nurse or other home services: Yes ([place]) Alcohol intake: never Comment: Patient refusing all alarms Patient Tobacco Use Status: Former Tobacco user Tobacco use type: Cigarette Cigarette Packs Per Day: 0.5 Cigarettes Per Day: 10.0 Years Smoked: 50 Substance Use Type: Marijuana Advance Directives Date on File: 02/09/20 service: No Review of Systems Const Denies weakness ENT Denies dizziness Card Denies chest pain, Denies chest pain with activity, Denies syncope, Denies rapid heart rate, Denies pedal edema, Denies edema, Denies leg edema, Denies lightheadedness, Denies palpitations, Denies dyspnea, Denies dyspnea on exertion and Denies orthopnea Resp Denies cough, Denies dyspnea and Denies dyspnea on exertion GI Denies hematochezia and Denies change in stool character Musc Denies abnormal gait, Denies muscle cramps, Denies muscle weakness, Denies numbness, Denies radiating pain into limb and Denies tingling Neuro Denies abnormal gait, Denies dizziness, Denies syncope, Denies numbness, Denies tingling and Denies weakness Endo Denies palpitations Physical Exam Vital Signs: Last Vital Signs Pulse 71 06/21/24 09:38 BP 110/60 06/21/24 09:38 BMI result Body Mass Index 35.2 Const General: no acute distress and alert Nutritional Appearance: not obese Orientation/consciousness: Other orientation findings ( oriented) HEENT Head: Yes atraumatic Eyes General: appearance normal, both eyes and all related structures Sclerae: sclerae normal EOM: EOMs intact bilaterally Neck Neck: Yes supple Lymphatic: no lymphadenopathy noted Resp Effort & Inspection: normal respiratory effort Auscultation: clear to auscultation bilaterally and diminished lung sounds Cardio Rate: regular rate Rhythm: regular rhythm Heart sounds: no gallops, no murmurs and no rubs Skin General skin exam: other ( warm) Extrem General: No clubbing, No cyanosis and Yes edema (1+ bilateral) Office Procedures EKG Details: EKG shows normal sinus rhythm with normal EKG at 71 beats per minute [id number], Complete Assessment & Plan Assessment & Plan (1) Chest pain on exertion: Code(s): R07.9 - Chest pain, unspecified Category: Medical Plan: Chest pain on exertion this elderly man with continued smoking and risk factors although LDL is currently well optimized on high-intensity statin therapy. Triglycerides still elevated. Progressive CAD is likely. Last stress test was 4 years ago. Will suggest a coronary CTA to further evaluate for coronary anatomy to guide treatment. Possible that this could be related to bronchospastic airway disease. He has had chest pain on exertion in the past as well. Clinically otherwise no issues. Continue low-dose aspirin therapy. Continue high-intensity statin therapy. Complete smoking cessation was advised. Continue optimize COPD management. Further treatment based on the findings of coronary CTA. Will follow up in the clinic in 1 year's time otherwise. Thank you for allowing me to partake in his care Orders: Orders CT Cardiac Coronary Angio 1 Week R07.9 - Chest pain, unspecified Coding Level of Care Code Est Pt Level 4 (58405) Complex EM visit Add On G2211 Diagnoses Chest pain on exertion R07.9 CPT Codes EKG - CPT: 21620-[id number], Complete ([id number])
--- OUTSIDE RECORDS SUMMARY | 2024-06-21 10:49 | XMS_ITS | Continuity of Care Document ---
Author Organization [facility] Address [address] [place] [address] [address], [address] [place] [address]- Care Team Providers Care Education And Training Coordinator Name Role Phone Mika COLBY, [facility] Primary Care Physician [phone] [id number] Date[facility]s): 05/02/24 - 06/17/24 [facility] [address] [place] [address] Drive [address] [place], [place] [address] Attending Physician: Claire Duggan DO Referring Physician: Melani Joyce MD Encounter Type: Pre Office Visit Allergies, Adverse Reactions, Alerts Substance Criticality Severity [...] Date: 06/13/14 Status: Ordered Repeat number: 1 celecoxib 200 mg oral capsule 0 Refills, Maintenance, 06/06/24 1:49:00 PM EST, Partial fill upon patient request if the prescription is for a schedule II opioid drug. Start Date: 06/06/24 Status: Ordered Repeat number: 1 docusate-senna 50 [...] Date: 11/06/22 Status: Ordered Repeat number: 1 Medrol Dosepak 4 mg oral tablet 1 pack/packet, By Mouth, Once, # 21 tablet, 0 Refills, Soft Stop, 06/06/24 2:15:00 PM EST, Tablet, [facility], Partial fill upon patient request if the prescription is for a schedule II opioid drug., 170, cm, 06/06/24 13:50:00 EST, Height, 94.1, kg, 11/07/22 4:07:00 EDT, Dry Weight Start Date: 06/06/24 Status: Ordered Quantity: 21.0 Unit: tablet Repeat number: 1 metformin 1000 mg oral tablet 1 tablet = 1,000 mg, By Mouth, 2 times a day, 0 Refills, Maintenance, 06/13/14 9:38:00 AM EST Start Date: 06/13/14 Status: Ordered Repeat number: 1 methimazole 5 mg oral tablet 1, tablet, By Mouth, Daily in AM, # 30 tablet, Refills 6, Tot. Refills 6, Maintenance, 02/18/24 1:31:00 PM EDT, Route to Pharmacy Electronically, [facility], 5.7, cm, 11/07/22 15:17:00 EDT, [...] History Social History Type Response Smoking Status 5-9 cigarettes (betw een 1/4 to 1/2 pack)/day in last 30 days entered on: 06/06/24 Sex Sex Representation Male (finding) Implantable Device List Procedure Provider Procedure Date Device Type Site Discectomy and Fusion Anterior Cervical Lyness DO, Claire A 11/09/18 Unknown Cervical S pine Device Identifier Serial Number Lot or Batch Number Manufacturing Date Expiration Date Distinct Identification Code MRI Safety Implantable Status Assigning Authority Unknown [id number] Unknown Unknown 05/04/21 Unknown Unknown Active Unknown Patient Care team information Care Team Personnel Name: Gonzales Brennan MD Position: [facility] Outreach Member Role: PCP Address: [address] [place] [address] Telecom: Name: Mariam Woo RN Position: [facility] RN Member Role: Primary Care Nurse Name: Rebecca San RN Position: [facility] RN Member Role: Primary Care Nurse Name: Paula Pascual RN Position: [facility] Hospital Ultrasonic Seaming Machine Operator Member Role: Primary Care Nurse Care Team Related Persons Name: EMMANUELLE RODARTE Name: HELENA BALBUENA Name: PRIYANKA BALBUENA Insurance Providers Guarantor name: SHANNON BALBUENA Health Plan Information #: 1 Payer: NA Member Number: NA Policy Number: NA Group Number: NA Health Plan Information #: 2 Payer: NA Member Number: NA Policy Number: NA Group Number: NA
--- OUTSIDE RECORDS SUMMARY | 2024-06-21 10:49 | XMS_ITS | Clinical Summary ---
Author Organization [facility] Address [address] [place] [address] Care Team Providers Care Global President Name Role Phone Unavailable Primary Care Provider Unavailabl e Surgical History Surgery Date Site/Laterality Comments OTHER SURGICAL HISTORY Right PROCEDURE: RI RESCJ&BRONCHOPLASTY PFRMD TM LOBEC/SGMECTOMY Medical History Medical History Date Comments COPD (chronic obstructive pu lmonary disease) (CMS/HCC) DX:COPD (chronic obstructive pulmonary disease) (HCC) Mixed hyperlipidemia DX:Mixed hy perlipidemia Essential (primary) hypertension DX:Essential (primary) hypertension Mixed hyperlipidemia DX:Mixed hy perlipidemia Family History Medical History Relation Name Comments Lung cancer Father Relation Name Status Comments Father Mother Social History Tobacco Use Types Packs/Day Years Used Date Smoking Tobacco: Every Day Cigarettes Sex and Gender Information Value Date Recorded Sex Assigned at Not on file Legal Sex Male 1:05 AM EST Gender Identity Not on file Sexual Orientation Not on file Obstetrics History Last Filed Vital Signs Vital Sign Reading Time Taken Comments Blood Pressure 154/80 08/16/2021 1:39 PM EDT Pulse 64 08/16/2021 1:39 PM EDT Temperature - - Respiratory Rate - - Oxygen Saturation - - Inhaled Oxygen Concentration - - Weight 104 kg (230 lb) 08/16/2021 1:39 PM EDT Height 170.2 cm (5' 7 ) 08/16/2021 1:39 PM EDT Body Mass Index 36.02 08/16/2021 1:39 PM EDT Plan of Treatment Health Maintenance Due Date Last Done Comments DTaP,Tdap,and Td Vaccines (1 - Tdap) 1973 Pneumococcal Vaccine: 50+ Ye ars (1 of 2 - PCV) 1973 Zoster Vaccines (1 of 2) 2004 Abdominal Aortic Aneurysm (A AA) Screen 04/06/2022 Cholesterol Screening (Lipid Panel) 04/06/2022 Colorectal Cancer Screening: Colonoscopy 04/06/2022 Depression Screening 04/06/2022 Falls Risk Assessment 04/06/2022 Hepatitis C Screening 04/06/2022 Social Influencers of Health Screening 04/06/2022 COVID-19 Vaccine (2023-2 5 season) 2023 Influenza Vaccine (#1) 2023 RSV Immunization Patients 60 + Years Old (1 - 1-dose 75+ series) 2029 HIB Vaccines Aged Out No longer eligi ble based on patient's age to complete this topic HPV Vaccines Aged Out No longer eligi ble based on patient's age to complete this topic Hepatitis A Vaccines Aged Out No long er eligible based on patient's age to complete this topic Hepatitis B Vaccines Aged Out No long er eligible based on patient's age to complete this topic IPV Vaccines Aged Out No longer eligi ble based on patient's age to complete this topic MMR Vaccines Aged Out No longer eligi ble based on patient's age to complete this topic Meningococcal ACWY Vaccine Aged Out N o longer eligible based on patient's age to complete this topic Meningococcal B Vacine Aged Out No lo nger eligible based on patient's age to complete this topic RSV Immunization Patients Un daniel 20 months Aged Out No longer eligible b ased on patient's age to complete this topic Varicella Vaccines Aged Out No longer eligible based on patient's age to complete this topic Advance Directives Documents on File Type Date Recorded Patient Hydramatic Specialist Expl anation Health Care Decision (hx) 08/01/2021 AD CERDA DIRECTIVE Health Care Decision (hx) 08/01/2021 AD CERDA DIRECTIVE
--- OUTSIDE RECORDS SUMMARY | 2024-06-21 10:49 | XMS_ITS | Encounter Summary ---
Author Organization [employer] Address [address] [facility] 7 [place] [address] Care Team Providers Care Demo Specialist Name Role Phone Gonzales Brennan MD Primary Care Provider [phone] Reason for Visit * Reason Onset Date Comments Request For Order(s) 12/01/2023 Encounter Details Date Type Department Care Team ([facility] st Contact Info) Description 12/01/2023 Telephone [facility] [address] [place] [address] Gonzales Brennan MD [address] [place] [id number] Request For Order(s) Social History Tobacco Use Types Packs/Day Years Used Date Smoking Tobacco: Every Day Cigarettes 0.5 41 Passive Smoke Exposure: Current Smokeless Tobacco: Never Alcohol Use Standard Drinks/Week Comments Not Currently 0 (1 standard drink = 0.6 oz pur e alcohol) Depression Answer Date Recorded Patient Health Questionnaire-9 Score 0 07/10/2022 Housing Stability Answer Date Recorded What is your housing situation today? I have paolo medley 02/09/[address] you li ve. Do you have problems with any of the following? None of the above 02/09/2023 Food Insecurity Answer Date Recorded Within the past 12 months, y ou worried that your food would run out before you got money to buy more: Never True 02/09/2023 Within the past 12 months,th e food you bought just didn't last and you didn't have enough money to get more: Never True Transportation Answer Date Recorded In the past 12 months, has l ack of transportation kept you from medical appts, meetings, work or from getting things needed for daily living? No 02/09/2023 Utilities Answer Date Recorded In the past 12 months, has t he electric, gas, oil or water company threatened to shut off services in your home? No 02/09/2023 Depression Answer Date Recorded Patient Health Questionnaire-2 Score 0 07/10/2022 Sex and Gender Information Value Date Recorded Sex Assigned at Male 02/24/2022 10:21 AM EDT Legal Sex Male 10:21 AM EDT Gender Identity Male 02/24/2022 10:21 AM EDT Sexual Orientation Straight 02/24/2022 10 :21 AM EDT documented as of this encounter Miscellaneous Notes * Telephone Encounter - Wing Charleen RN - 12/02/2023 3:30 PM EDT Tc to pt to relay new order. Unable to reach pt, left message for pt to call back. * Telephone Encounter - Angelia Sanchez - 12/01/2023 4:10 PM EDT Tc from pt stating he went to do X-rays for his back and neck but only has order for his back not his neck is requesting for an order documented in this encounter Plan of Treatment Upcoming Encounters Date Type Department Care Team (Late st Contact Info) Description 06/29/2024 9:00 AM EST Clinical Support [facility] MED & PEDS [address] [place] [address] Marisol Thomas RN [address] [place] [address] 07/19/2024 8:00 AM EDT Office Visit [facility] ADULT DENTAL [address] [place] [address] Diaz Merida DMD [address] [place] [address] documented as of this encounter Visit Diagnoses Not on filedocumented in this encounter Additional Health Concerns Assessment Noted Time PHQ-9 Depression Total Score: 0 07/11/19 23 3:46 PM EDT documented as of this encounter Care Teams Demo Specialist Relationship Specialty Start Date End Date Gonzales Brennan MD [address] [place] [phone] PCP - General Internal Medicine 04/27/18 documented as of this encounter
--- OUTSIDE RECORDS SUMMARY | 2024-06-21 10:50 | XMS_ITS | Encounter Summary ---
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) Social History Tobacco Use Types Packs/Day Years [...] AM EDT documented as of this encounter Plan of Treatment Upcoming Encounters Date Type Department Care Team (Late st Contact Info) Description 06/29/2024 9:00 AM EST Clinical Support [facility] [address] [place] [address] Marisol Thomas, RN [address] [place] [address] 07/19/2024 8:00 AM EDT Office Visit [facility] ADULT [facility] [address] [place], [place] [phone] Diaz Merida, DMD [address] [place] [address] documented as of this encounter Procedures Procedure Name Priority Date/Time Associated Diagnosis Comments ALBUMIN, RANDOM URINE W/CREATININE Routine 02/26/2024 2:00 PM EDT Controlled type 2 diabetes with neuropathy ([facility]/HCC) documented in this encounter Results * (ABNORMAL) Albumin, Random Urine W/Creatinine (02/26/2024 2:00 PM EDT) Creatinine, Urine 122.05 mg/dL [facility] Microalbumin Urine 1,421.0 mg/L H [facility] Microalbum Creatinine Ratio Ur 1,164.2(H ) <30 ug/mg cr [facility] Comment:Albumin/Creatinine R atio Reference Ranges: Normal: < 30 ug/mg creatinine Microalbuminuria: 30 - 300 ug/mg creatinineClinical Albuminuria: > 300 ug/mg creatinine Urine (Urine, Random) 02/26/2024 2:00 PM EDT 02/26/2024 5:55 PM EDT Gonzales Brennan MD LAB URINE ORDERABLES Final Result [facility] [address] [place] [address] [phone] documented in this encounter Visit Diagnoses Diagnosis Controlled type 2 diabetes with neuropathy (CMS/HCC)- Primary Type II or unspecified type diabetes mellitus with neurological manifestations, not stated as uncontrolled documented in this encounter Additional Health Concerns Assessment Noted Time PHQ-9 Depression Total Score: 0 07/11/19 23 3:46 PM EDT documented as of this encounter Care Teams Greenhouse Laborer Relationship Specialty Start Date End Date Gonzales Brennan MD [address] [place] [id number] PCP - General Internal Medicine 04/27/18 documented as of this encounter
--- OUTSIDE RECORDS SUMMARY | 2024-06-21 10:50 | XMS_ITS | Encounter Summary ---
Author Organization [employer] Address [address] [facility] 7t [place] [address] Care Team Providers Care Fixed Interest Dealer Name Role Phone Gonzales Brennan MD Primary Care Provider [phone] Reason for Visit * Reason Onset Date Comments Referral 02/23/2024 Encounter Details Date Type Department Care Team ([facility] Contact Info) Description 02/23/2024 Telephone [facility] MED[facility]INE [address] [place] [address] Gonzales Brennan MD [address] [place] [address] Referral Social History Tobacco Use Types Packs/Day Years [...] encounter Miscellaneous Notes * Telephone Encounter - Idalia Farias RN - 02/26/2024 12:18 PM EDT Images from the original note were not included. Nazia Farias RN Caller: Unspecified (3 days ago, 12:37 PM) CC looked up patient on [facility] portal. Patient CT scan pictures are visible, but unable to save and scan on patient's chart. CC will send a request to [facility] to send any CT scans reports made, but its uncertain we will receive any reports back. * Telephone Encounter - Idalia Farias RN - 02/26/2024 11:43 AM EDT Called pt. Back. He states that he had CT scan of cervical srea done but there is no report that I see in his chart. I will send request to clinical care coordinators to get results in chart and pt. Wants to know based on results if he is going to refer him back to Dr. Ram who did his surgery in past as he is still having bad neck pain. Please advise. CT scan was ordered on 01/27/24 and pt. States he had it done at [facility]. I also informed pt. That PCP ordered the lab work that Roseanna REINOSO requested and pt. States he will go get that done today. * Telephone Encounter - Gonzales Brennan MD - 02/24/2024 9:07 PM EDT The order was placed. Please inform us if having further questions. * Telephone Encounter - Pia Philip - 02/23/2024 12:37 PM EDT Tc from Roseanna (KEMAR) requesting PCP to assist pt with referral for lab work Urine albumin to creatinine ratio (ACR) . Roseanna (KEMAR) [facility] [phone] documented in this encounter Plan of Treatment Upcoming Encounters Date Type Department Care Team (Late st Contact Info) Description 06/29/2024 9:00 AM EST Clinical Support [facility] MED & PEDS [address] [place] [address] Marisol Thomas, LEVI [address] [place] [address] 07/19/2024 8:00 AM EDT Office Visit [facility] ADULT DENTAL [address] [place] [address] Diaz Merida, CEDRICK 505 [place] [address] documented as of this encounter Visit Diagnoses Not on filedocumented in this encounter Additional Health Concerns Assessment Noted Time PHQ-9 Depression Total Score: 0 07/11/19 23 3:46 PM EDT documented as of this encounter Care Teams Fixed Interest Dealer Relationship Specialty Start Date End Date Gonzales Brennan MD [address] [place] [address] PCP - General Internal Medicine 04/27/18 documented as of this encounter
--- OUTSIDE RECORDS SUMMARY | 2024-06-21 10:50 | XMS_ITS | Encounter Summary ---
Author Organization [employer] Address [address] [place] [address] 7t [place] [address] Care Team Providers Care Grocery Associate Name Role Phone Gonzales Brennan MD Primary Care Provider [phone] Encounter Details Date Type Department Care Team ([facility] Contact Info) Description 08/22/2022 Orders Only [facility] MED & PEDS [address] [place] [address] Cinthia Roads LPN Social History Tobacco Use Types Packs/Day Years Used Date Smoking Tobacco: Every Day Cigarettes 3 41 Smokeless Tobacco: Never Comments:Currently smokes 1/ 2 ppd since the age of [age] years old. Depression Answer Date Recorded Patient Health Questionnaire-9 Score 0 07/10/2022 Depression Answer Date Recorded Patient Health Questionnaire-2 Score 0 07/10/2022 Sex and Gender Information Value Date Recorded Sex Assigned at Male 02/24/2022 10:21 AM EDT Legal Sex Male 10:21 AM EDT Gender Identity Male 02/24/2022 10:21 AM EDT Sexual Orientation Straight 02/24/2022 10 :21 AM EDT COVID-19 Exposure Response Date Recorded In the last 10 days, have yo u been in contact with someone who was confirmed or suspected to have Coronavirus/COVID-19? No / Unsure 08/19/2022 11:22 AM EDT documented as of this encounter Plan of Treatment Upcoming Encounters Date Type Department Care Team ([facility] Contact Info) Description 06/29/2024 9:00 AM EST Clinical Support [facility] MED & PEDS [address] [place] [address] Marisol Thomas, LEVI [address] [place] [address] 07/19/2024 8:00 AM EDT Office Visit [facility] ADULT DENTAL [address] [place] [address] Diaz Merida DMD [address] [place] [address] documented as of this encounter Visit Diagnoses Not on filedocumented in this encounter Additional Health Concerns Assessment Noted Time PHQ-9 Depression Total Score: 0 07/11/19 23 3:46 PM EDT documented as of this encounter Care Teams Grocery Associate Relationship Specialty Start Date End Date Gonzales Brennan MD [address] [place] [address] PCP - General Internal Medicine 04/27/18 documented as of this encounter
--- OUTSIDE RECORDS SUMMARY | 2024-06-21 10:50 | XMS_ITS | Continuity of Care Document ---
Author Organization [facility] Address [address] [place] [address] [address], [address] [place] [address]- Care Team Providers Care Nutrition Counselor Name Role Phone Mika COLBY, [facility] Primary Care Physician [id number] Date(s): 06/06/24 - 06/13/24 [facility] [address] [place] [address] Drive [address] [place], [place] [address] Attending Physician: Claire Duggan DO Referring Physician: Melani Joyce MD Encounter Type: Office Visit Allergies, Adverse Reactions, Alerts Substance [...] Soft Stop, 06/06/24 2:15:00 PM EST, Tablet, [facility], Partial fill upon patient request if [...] 1:31:00 PM EDT, Route to Pharmacy Electronically, [facility], 5.7, cm, 11/07/22 15:17:00 EDT, Height, [...] Confirmed Active 1Problem added by Discern Expert Vital Signs Most recent to oldest [Reference Range]: 1 Height 170 cm (06/06/24 1:50 PM) Weight 98.5 kg (06/06/24 1:50 PM) Body Mass Index [18.5-24.99 kg/m2] 34.08 kg/m2 *>HHI* (06/06/24 1:50 PM) Social History Social History Type Response Smoking Status 5-9 cigarettes (betw een 1/4 to 1/2 pack)/day in last 30 days entered on: 06/06/24 Sex Sex Representation Male (finding) Implantable Device List Procedure Provider Procedure Date Device Type Site Discectomy and Fusion Anterior Cervical Aniazane Claire CHAO 11/09/18 Unknown Cervical S pine Device Identifier Serial Number Lot or Batch Number Manufacturing Date Expiration Date Distinct Identification Code MRI Safety Implantable Status Assigning Authority Unknown [id number] Unknown Unknown 05/04/21 Unknown Unknown Active Unknown Patient Care team information Care Team Personnel Name: Gonzales Brennan MD Position: [facility] Outreach Member Role: PCP Address: [address] [place] [address] Telecom: Name: Mariam Woo RN Position: [facility] RN Member Role: Primary Care Nurse Name: Rebecca San RN Position: [facility] RN Member Role: Primary Care Nurse Name: Paula Pascual RN Position: [facility] Hospital Bleacher Pulp Member Role: Primary Care Nurse Care Team Related Persons Name: EMMANUELLE RODARTE Name: HELENA BALBUENA Name: PRIYANKA BALBUENA Insurance Providers Guarantor name: SHANNON BALBUENA Health Plan Information #: 1 Payer: PAULINO Member Number: [id number] Policy Number: PAULINO Group Number: [id number] Health Plan Information #: 2 Payer: PAULINO Member Number: [id number] Policy Number: PAULINO Group Number: [id number]
--- OUTSIDE RECORDS SUMMARY | 2024-06-21 10:50 | XMS_ITS | Encounter Summary ---
Author Organization [employer] Address [address] [place] [address] 7t [place] [address] Care Team Providers Care Cloth Examiner Machine Name Role Phone Gonzales Brennan MD Primary Care Provider [phone] Reason for Visit * Reason Comments Med Refill Encounter Details Date Type Department Care Team (Late Contact Info) Description 05/19/2022 Refill [facility] MEDICINE [address] [place], [place] [phone] Gonzales Brennan MD [address] [place], [place] [phone] Chronic midline low back pain without sciatica Social History Tobacco Use Types Packs/Day Years Used Date Smoking Tobacco: Never Assessed Sex and Gender Information Value Date Recorded Sex Assigned at Male 02/24/2022 10:21 AM EDT Legal Sex Male 10:21 AM EDT Gender Identity Male 02/24/2022 10:21 AM EDT Sexual Orientation Straight 02/24/2022 10 :21 AM EDT documented as of this encounter Plan of Treatment Upcoming Encounters Date Type Department Care Team ([facility] Contact Info) Description 06/29/2024 9:00 AM EST Clinical Support [facility] MED & PEDS [address] [place], [place] [phone] Marisol Thomas RN [address] [place], [place] [phone] 07/19/2024 8:00 AM EDT Office Visit [facility] ADULT DENTAL [address] [place], [place] [phone] Diaz Merida DMD [address] [place], [place] [phone] documented as of this encounter Visit Diagnoses Diagnosis Chronic midline low back pain without sciatica documented in this encounter Care Teams Cloth Examiner Machine Relationship Specialty Start Date End Date Gonzales Brennan MD [address] [place] [address] PCP - General Internal Medicine 04/27/18 documented as of this encounter
--- OUTSIDE RECORDS SUMMARY | 2024-06-21 10:50 | XMS_ITS | Encounter Summary ---
Author Organization [employer] Address [address] [facility] 7t [place] [address] Care Team Providers Care Hydramatic Mechanic Name Role Phone Gonzales Brennan MD Primary Care Provider [phone] Reason for Visit * Reason Comments Med Refill Encounter Details Date Type Department Care Team ([facility] st Contact Info) Description 06/10/2024 Refill [facility] MEDICINE [address] [place] [address] Gonzales Brennan MD [address] [place] [address] Anxiety state Social History Tobacco Use Types Packs/Day Years [...] Description 06/29/2024 9:00 AM EST Clinical Support [facility] MED & PEDS [address] [place] [address] Marisol Thomas RN [address] [place] [address] 07/19/2024 8:00 AM EDT Office Visit [facility] ADULT DENTAL [address] [place] [address] Diaz Merida, DMD [address] [place] [address] documented as of this encounter Visit Diagnoses Diagnosis Anxiety state Anxiety state, unspecified documented in this encounter Additional Health Concerns Assessment Noted Time PHQ-9 Depression Total Score: 0 07/11/19 23 3:46 PM EDT documented as of this encounter Care Teams Hydramatic Mechanic Relationship Specialty Start Date End Date Gonzales Brennan MD [address] [place] [address] PCP - General Internal Medicine 04/27/18 documented as of this encounter
--- OUTSIDE RECORDS SUMMARY | 2024-06-21 10:50 | XMS_ITS | Encounter Summary ---
Author Organization [employer] Address [address] [facility] 7t [place] [address] Care Team Providers Care Newspaper Press Operator Apprentice Name Role Phone Gonzales Brennan MD Primary Care Provider [phone] Encounter Details Date Type Department Care Team ([facility] Contact Info) Description 08/28/2023 Orders Only [facility] MED & PEDS [address] [place], [place] [phone] Gonzales Brennan MD [address] [place] [address] Atherosclerosis of [place] coronary artery of [place] heart without angina pectoris (Primary Dx) Social History Tobacco Use Types Packs/Day Years Used Date Smoking Tobacco: Every Day Cigarettes 0.5 41 Smokeless Tobacco: Never Alcohol Use Standard Drinks/Week [...] 9:00 AM EST Clinical Support [facility] MED & PEDS [address] [place] [address] Marisol Thomas RN [address] [place] [address] 07/19/2024 8:00 AM EDT Office Visit [facility] ADULT DENTAL [address] [place] [address] Diaz Merida, DMD [address] [place] [address] documented as of this encounter Visit Diagnoses Diagnosis Atherosclerosis of [place] coronary artery of [place] heart without angina pectoris- Primary documented in this encounter Additional Health Concerns Assessment Noted Time PHQ-9 Depression Total Score: 0 07/11/19 23 3:46 PM EDT documented as of this encounter Care Teams Newspaper Press Operator Apprentice Relationship Specialty Start Date End Date Gonzales Brennan MD [address] [place] [address] PCP - General Internal Medicine 04/27/18 documented as of this encounter
--- OUTSIDE RECORDS SUMMARY | 2024-06-21 10:50 | XMS_ITS | Encounter Summary ---
Author Organization [employer] Address [address] [facility] 7t [place] [address] Care Team Providers Care Press Tender Long Goods Name Role Phone Gonzales Brennan MD Primary Care Provider [phone] Encounter Details Date Type Department Care Team ([facility] Contact Info) Description 12/02/2023 Orders Only [facility] MED & PEDS [address] [place], [place] [phone] Gonzales Brennan MD 505 [place], [place] [address] Neck pain (Primary Dx) Social History Tobacco Use Types [...] Description 06/29/2024 9:00 AM EST Clinical Support [facility] MED & PEDS [address] [place] [address] Marisol Thomas, RN 505 [place] [address] 07/19/2024 8:00 AM EDT Office Visit [facility] ADULT DENTAL [address] [place] [address] Diaz Merida, CEDRICK 505 [place] [address] Scheduled Orders Name Type Priority Associated Diagnoses Orde r Schedule XR Cervical Spine 2-3 Views Imaging Routine Neck pain Expected: 12/02/2023, Expires: 12/01/2024 documented as of this encounter Procedures Procedure Name Priority Date/Time Associated Diagnosis Comments XR CERVICAL SPINE 3V Routine 12/03/2023 1:38 PM EDT documented in this encounter Results * XR CERVICAL SPINE 3V (12/03/2023 1:38 PM EDT) Anatomical Region Laterality Modality Abdomen Radiographic Dahlia ging 12/03/2023 1:38 PM EDT Narrative 01/25/2024 3:47 PM EDT ? [facility] ?[address] ?[place] [address] ?XRay Report ? Signed ? Patient: Hinkle,Sean ?MR#: [id number] ?? 2 ? : 1955 ?Acct:[id number] ? Age/Sex: 68 / M ?ADM Date: 08/08/24 ? Loc: HO.XRAY ? Attending Dr: Gonzales Brennan MD ? Ordering Physician: Gonzales Brennan MD ?? Date of Service: 12/03/23 ?? Procedure(s): XR cervical spine 3V ?? Accession Number(s): [id number] ? cc: Gonzales Brennan MD ? EXAMINATION: ?? XR CERVICAL SPINE ? CLINICAL INFORMATION: ?? Neck pain ? COMPARISON: ?? CT cervical spine 09/17/2018. ? TECHNIQUE: ?? 4 views of the cervical spine were obtained. ? FINDINGS: ?? -There has been prior anterior fusion with plate and screw fixation of ?? C6-7. Grossly hardware appears intact. There appears to be lucency ?? surrounding the superior screws of diffusion within the C6 vertebral ?? body. ? -Straightening of the normal lordosis. ?? -3 mm anterolisthesis of C5 on C6. Alignment is otherwise anatomic ?? grossly. Cannot well visualize C7-T1 interspace. ?? -Severe disc degeneration and narrowing C3-4, with moderate narrowing ?? C4-5 and C5-6. There is a disc prosthesis and C6-7 with apparent bony ?? fusion through the disc space. ?? -Normal C1-C2 articulation. ?? -Normal facet alignment with mild degenerative facet changes throughout. ? -No prevertebral soft tissue abnormalities. ? XR/XR cervical spine 3V ?? IMPRESSION: ? 1. Anterior plate and screw fusion of C6-C7. Findings suggesting ?? loosening of the superior interbody screws of the C6 anterior fusion ?? construct. Correlate with CT examination. ?? 2. Diffuse spondylosis, most significant C3-4. No acute cervical spine ?? abnormalities otherwise. ? Electronically signed by: ??Taurus Trent MD ??01/25/2024 03:44 PM EDT RP ? Dictated By: ?Taurus Trent MD ? Signed By: ?<Electronically signed by Taurus Trent MD in OV> ?01/25/24 1544 ? DD/ 1338 ? TD/TT: 12/03/23 1350 ? [employer] Architect: ? Procedure Note Donotuseinterpreter, Image - 01/25/[address] [address] XRay Report Signed Patient: Sean HinkleMR#: [id number] 2 : 5Acct:[id number] Age/Sex: 68 / MADM Date: 12/03/23 Loc: HO.XRAY Attending Dr: Gonzales Brennan MD Ordering Physician: Gonzales Brennan MD Date of Service: 12/03/23 Procedure(s): XR cervical spine 3V Accession Number(s): [id number] cc: Gonzales Brennan MD EXAMINATION: XR CERVICAL SPINE CLINICAL INFORMATION: Neck pain COMPARISON: CT cervical spine 09/17/2018. TECHNIQUE: 4 views of the cervical spine were obtained. FINDINGS: -There has been prior anterior fusion with plate and screw fixation of C6-7. Grossly hardware appears intact. There appears to be lucency surrounding the superior screws of diffusion within the C6 vertebral body. -Straightening of the normal lordosis. -3 mm anterolisthesis of C5 on C6. Alignment is otherwise anatomic grossly. Cannot well visualize C7-T1 interspace. -Severe disc degeneration and narrowing C3-4, with moderate narrowing C4-5 and C5-6. There is a disc prosthesis and C6-7 with apparent bony fusion through the disc space. -Normal C1-C2 articulation. -Normal facet alignment with mild degenerative facet changes throughout. -No prevertebral soft tissue abnormalities. XR/XR cervical spine 3V IMPRESSION: 1. Anterior plate and screw fusion of C6-C7. Findings suggesting loosening of the superior interbody screws of the C6 anterior fusion construct. Correlate with CT examination. 2. Diffuse spondylosis, most significant C3-4. No acute cervical spine abnormalities otherwise. Electronically signed by: Taurus Trent MD 01/25/2024 03:44 PM EDT Dictated By: Taurus Trent MD Signed By: <Electronically signed by Taurus Trent MD in OV> 01/25/24 1544 DD/ 1338 TD/TT: 12/03/23 1350 [employer] Architect: us Gonzales Brennan MD IMG XR PROCEDURES Final Res ult documented in this encounter Visit Diagnoses Diagnosis Neck pain- Primary Cervicalgia documented in this encounter Additional Health Concerns Assessment Noted Time PHQ-9 Depression Total Score: 0 07/11/19 23 3:46 PM EDT documented as of this encounter Care Teams Press Tender Long Goods Relationship Specialty Start Date End Date Gonzales Brennan MD [address] [place] [address] PCP - General Internal Medicine 04/27/18 documented as of this encounter
--- OUTSIDE RECORDS SUMMARY | 2024-06-21 10:50 | XMS_ITS | Continuity of Care Document ---
Author Organization [facility] Address [address] [place] [address] Eulalia schumacher, [address] [place] [address]- Care Team Providers Care Lamp Tester And Inspector Name Role Phone Mika COLBY, Gonzales Primary [id number]s): [facility]/02[facility] - 06/01/24 [facility] [address] [place] [address] Drive [address] [place], [place] [address] Encounter Type: Triage Allergies, Adverse Reactions, Alerts [...] 1:31:00 PM EDT, Route to Pharmacy Electronically, [facility], 5.7, cm, 11/07/22 15:17:00 EDT, [...] cigarettes/day; Started at age: 13; entered on: 7/18/17 Sex Sex Representation Male (finding) Implantable Device List Procedure Provider Procedure Date Device Type Site Discectomy and Fusion Anterior Cervical Claire Duggan DO 11/09/18 Unknown Cervical S pine Device Identifier Serial Number Lot or Batch Number Manufacturing Date Expiration Date Distinct Identification Code MRI Safety Implantable Status Assigning Authority Unknown [id number] Unknown Unknown 05/04/21 Unknown Unknown Active Unknown Patient Care team information Care Team Personnel Name: Gonzales Brennan MD Position: [facility] Outreach Member Role: PCP Address: [address] [place] [address] Telecom: Name: Mariam Woo RN Position: [facility] RN Member Role: Primary Care Nurse Name: Rebecca San RN Position: [facility] RN Member Role: Primary Care Nurse Name: Paula Pascual RN Position: [facility] Hospital Java Technical Architect Member Role: Primary Care Nurse Care Team Related Persons Name: EMMANUELLE RODARTE Name: HELENA BALBUENA Name: PRIYANKA BALBUENA Insurance Providers Guarantor name: SHANNON BALBUENA Health Plan Information #: 1 Payer: NA Member Number: NA Policy Number: NA Group Number: NA
--- OUTSIDE RECORDS SUMMARY | 2024-06-21 10:50 | XMS_ITS | Encounter Summary ---
Author Organization [employer] Address 75 [facility] 7t [place] [address] Care Team Providers Care Flue Tile Press Operator Name Role Phone Gonzales Brennan MD Primary Care Provider [phone] Reason for Visit * Reason Comments Med Refill Encounter Details Date Type Department Care Team ([facility] st Contact Info) Description 06/15/2024 Refill [facility] MEDICINE [address] [place] [address] Gonzales Brennan MD [address] [place] [address] Essential hypertension; Atherosclerosis of crow coronary artery of crow heart without angina pectoris Social History Tobacco Use Types Packs/Day Years [...] 06/29/2024 9:00 AM EST Clinical Support [facility] [address] [place] [address] Marisol Thomas, RN [address] [place] [address] 07/19/2024 8:00 AM EDT Office Visit [facility] ADULT DENTAL [address] [place] [address] Diaz Merida, CEDRICK 505 [place] [address] documented as of this encounter Visit Diagnoses Diagnosis Essential hypertension Unspecified essential hypertension Atherosclerosis of crow coronary artery of crow heart without angina pectoris documented in this encounter Additional Health Concerns Assessment Noted Time PHQ-9 Depression Total Score: 0 07/11/19 23 3:46 PM EDT documented as of this encounter Care Teams Flue Tile Press Operator Relationship Specialty Start Date End Date Gonzales Brennan MD [address] [place] [address] PCP - General Internal Medicine 04/27/18 documented as of this encounter
--- OUTSIDE RECORDS SUMMARY | 2024-06-21 10:50 | XMS_ITS | Clinical Summary ---
Author Organization [employer] Address [address] [place] [address] 7[address] [place] [address] Care Team Providers Care Brush Painter Name Role Phone Gonzales Brennan MD Primary Care Provider [phone] Allergies Active Allergy Reactions Criticality Noted Date Comments Penicillins Anaphylaxis,Shortnes s of breath High 05/22/2010 Other reaction(s): unspecified Medications Docusate Sodium (DSS) 100 MG capsule take 1 capsule by oral route 2 times every day at bedtime as needed 020 Active Fluticasone-Umecl idin-Vilant (Trelegy Ellipta) 200-62.5-25 MCG/ACT aerosol powder inhale 1 puff by inhalation route every day at the same time each day Active ipratropium-albut lorin (Duo-Neb) 0.5-2.5 mg/3 mL nebulizer solution use 1 vial by Inhalation route every 4 to 6 hours as needed 021 Active methIMAzole (Tapazole) 5 MG tablet take 1 tablet by oral route every day Active Methylcellulose, Laxative, 500 MG tablet take 1 daily Active metoprolol succinate XL (Toprol-XL) 25 MG 24 hr tablet take 1 Tablet by oral route every day 022 Active Misc. Devices (Wrist Brace) miscIndications:C arpal tunnel syndrome of left wrist To wear daily. 1 each 023 Active cholecalciferol (Vitamin D-3) 50 MCG (1999 UT) capsule Take 1 capsule by mouth in the morning. 023 Active GAS RELIEF 125 MG capsule TAKE ONE CAPSULE BY MOUTH 3 TO 4 TIMES DAILY NEEDED abdominal distention Active acetaminophen (Tylenol 8 Hour) 650 MG ER tablet take 1 tablet by oral route every 8 hours as needed swallowing whole with water. Do not break, crush, dissolve and/or chew. as needed 90 tablet 3 Active glipiZIDE XL (Glucotrol XL) 5 MG 24 hr tabletIndications :Type 2 diabetes mellitus with diabetic polyneuropathy (CMS/HCC) TAKE ONE TABLET BY MOUTH EVERY MORNING WITH BREAKFAST 30 tablet Active tamsulosin (Flomax) 0.4 MG 24 hr capsule TAKE ONE CAPSULE EVERY EVENING 30 capsule Active cholestyramine light (Prevalite) 4 g packet MIX ONE PACKET with TWO TO SIX OUNCE of liquid AND DRINK FOUR TIMES DAILY (BEFORE MEALS AND BEDTIME) WITH MEALS avoid other meds within 1hour before or 4-6 hours after dose Active esomeprazole (NexIUM) [address] capsule Take 1 capsule by mouth in the morning. Active famotidine (Pepcid) 40 MG tablet Take 1 tablet by mouth at bedtime. Active theophylline ER (Uniphyl) 400 MG 24 hr tablet Take 1 tablet by mouth in the morning. Active naloxone (Narcan) 4 mg/0.1 mL nasal sprayIndications: Other dorsalgia FOR SUSPECTED OPIOID OVERDOSE. SPRAY 0.1mL IN ONE NOSTRIL. REPEAT IN ALTERNATE NOSTRIL EVERY 2-3 MINUTES IF NEEDED. SEEK MEDICAL ATTENTION IMMEDIATELY EVEN IF PT RESPONDS. 2 each Active albuterol (2.5 MG/3ML) 0.083% nebulizer solutionIndicatio ns:Chronic obstructive pulmonary disease with acute exacerbation (CMS/HCC) INHALE 2.5 MG (3 ML) INHALED EVERY 6 HOURS NEEDED FOR SHORTNESS OF BREATH OR WHEEZING FOR 30 DAYS 75 mL Active albuterol 108 (90 Base) MCG/ACT inhalerIndication s:Chronic obstructive pulmonary disease with acute exacerbation (CMS/HCC) INHALE TWO PUFFS EVERY 4 TO 6 HOURS NEEDED SHORTNESS OF BREATH OR FOR WHEEZING 18 g Active nitroglycerin (Nitrostat) 0.4 MG SL tabletIndications :Atherosclerosis of alutiiq coronary artery of alutiiq heart without angina pectoris take 1 Tablet by Sublingual route every 5 minutes As needed for Chest pain 90 tablet 3 Active glucose blood (FREESTYLE LITE) test strip USE TO TEST BLOOD SUGAR SIX TIMES DAILY 100 each Active isosorbide mononitrate ER (Imdur) 60 MG 24 hr tablet TAKE ONE TABLET EVERY MORNING 30 tablet Active atorvastatin (Lipitor) 40 MG tablet TAKE ONE TABLET every night at bedtime 30 tablet Active furosemide (Lasix) 20 MG tablet Take 1 tablet (20 mg) by mouth Once per day. 30 tablet 024 2024 Active Stimulant Laxative 8.6-50 MG tabletIndications :Drug induced constipation TAKE ONE TABLET EVERY NIGHT AT BEDTIME NEEDED FOR CONSTIPATION 30 tablet 3 Active lisinopril-hydroC HLOROthiazide 10-12.5 MG tablet TAKE ONE TABLET EVERY MORNING 60 tablet 5 Active hydrOXYzine HCl (Atarax) 50 MG tablet TAKE ONE TABLET every night at bedtime 30 tablet 11 Active gabapentin (Neurontin) 600 MG tabletIndications :Type 2 diabetes mellitus with hyperglycemia, without long-term current use of insulin ([facility]) TAKE ONE TABLET THREE TIMES DAILY IN THE MORNING, EVENING AND BEDTIME 90 tablet 3 Active Sodium Fluoride (Clinpro 5000) 1.1 % pasteIndications: Dental caries Yulan teeth for 2 minutes, morning and night. Spit, do not rinse. Do not eat or drink anything for 30 minutes following use. 339 g 3 Active baclofen (Lioresal) 10 MG tabletIndications :Back pain, unspecified back location, unspecified back pain laterality, unspecified chronicity Take 1 tablet (10 mg) by mouth 2 times daily. 30 tablet 3 024 Active metFORMIN (Glucophage) 1000 MG tablet TAKE ONE TABLET IN THE MORNING AND EVENING 60 tablet 5 Active oxyCODONE (Roxicodone) 5 MG immediate release tabletIndications :Back pain, unspecified back location, unspecified back pain laterality, unspecified chronicity,Chroni c midline low back pain without sciatica TAKE ONE TABLET EVERY 8 HOURS NEEDED FOR SEVERE PAIN 42 tablet 025 Active celecoxib (CeleBREX) 200 MG capsule TAKE ONE CAPSULE EVERY MORNING FOR 10 DAYS 10 capsule 025 Active FLUoxetine (PROzac) 40 MG capsuleIndication s:Anxiety state TAKE ONE CAPSULE EVERY MORNING 30 capsule 11 025 Active Aspirin Adult Low Strength 81 MG EC tabletIndications :Essential hypertension,Athe rosclerosis of alutiiq coronary artery of alutiiq heart without angina pectoris TAKE ONE TABLET EVERY NIGHT AT BEDTIME 30 tablet 11 025 Active FLUoxetine (PROzac) 40 MG capsuleIndication s:Anxiety state TAKE ONE CAPSULE EVERY MORNING 30 capsule 11 024 2024 Discontinued Aspirin Adult Low Strength 81 MG EC tabletIndications :Essential hypertension,Athe rosclerosis of alutiiq coronary artery of alutiiq heart without angina pectoris TAKE ONE TABLET every night at bedtime 30 tablet 11 024 2024 Discontinued Active Problems Problem Noted Date Diagnosed Date Spinal stenosis, cervical region 04/04/2024 Degenerative disc disease, cervical 04/04/2024 COPD (chronic obstructive pulmonary disease) 10/202203/03/2023 GERD (gastroesophageal reflux disease) 03/03/2023 Adrenal mass 03/09/2020 Atherosclerosis of alutiiq co ronary artery of alutiiq heart without angina pectoris 07/26/2018 Gastrocnemius tendon rupture 07/26/2018 Bilateral recurrent inguinal hernia 02/12/2015 Controlled type 2 diabetes with neuropathy 05/27 Headache 05/27/2011 Tobacco dependence syndrome 05/27/2011 Essential hypertension 12/20/2010 Depressive disorder 11/20/2010 Anxiety state 04/05/2010 Encounters Date Type Department Care Team Description 06/17/2024 Telephone [facility] [address] [place] [address] Gonzales Brennan MD Prior Authorization 06/15/2024 Refill [facility] [address] [place], [place] [phone] Gonzales Brennan MD Essential hypertension; Atherosclerosis of alutiiq coronary artery of alutiiq heart without angina pectoris 06/10/2024 Refill [facility] [address] [place], [place] [phone] Gonzales Brennan MD Anxiety state 05/20/2024 Refill [facility] [address] [place] [address] Gonzales Brennan MD Back pain, unspecified back location, unspecified back pain laterality, unspecified chronicity; Chronic midline low back pain without sciatica 05/04/2024 Telephone [facility] [address] [place] [phone] Gonzales Brennan MD Referral 05/02/2024 Telephone [facility] [address] [place] [address] Melani Joyce MD 04/21/2024 Refill [facility] [address] [place] [address] Gonzales Brennan MD 04/04/2024 Telephone [facility] [address] [place] [phone] Gonzales Brennan MD 04/04/2024 Orders Only [facility] [address] [place] [phone] Melani Joyce MD Degenerative disc disease, cervical (Primary Dx); Spinal stenosis, cervical region 03/30/2024 2:15 PM EST Clinical Support [facility] [address] [place] [address] Marisol Thomas RN Chronic midline low back pain without sciatica 03/30/2024 Refill [facility] [address] [place], [place] [phone] Marisol Thomas RN Back pain, unspecified back location, unspecified back pain laterality, unspecified chronicity; Chronic midline low back pain without sciatica 03/30/2024 Travel 03/29/2024 3:00 PM EST Office Visit [facility] [address] [place], [place] [phone] Diaz Merida DMD Dental caries (Primary Dx); Periodontal disease from Last 3 Months Immunizations Name Administration Dates Next Due Influenza High-dose Quadriva lent Preservative Free 01/28/2023,01/10/2022,02/07/2021,03/29 Influenza injectable quadriv alent IIV4 with preservative 04/14/2019,02/23/2017,03/13/2016 Influenza injectable quadriv alent preservative free 02/08/2015 Influenza, IIV3, injectable 02/10/2014, 1 Influenza, Split (incl. stoney fied surface antigen) 02/08/2013 Pneumococcal Conjugate PCV 13 06/10/2021 Pneumococcal Conjugate PCV 20 11/23/2023 Pneumococcal Polysaccharide PPSV23 11/20/2011, TD (adult), 2 Lf tetanus tox oid, preservative free, adsorbed 08/27/2013 Td (adult), 5 Lf tetanus tox oid, preservative free, adsorbed 08/27/2013 Tdap 11/23/2023,02/13/2012 Zoster, Recombinant 12/24/2021,10/16/2021 Zoster, live 08/23/2015 Social History Tobacco Use Types Packs/Day Years Used Date Smoking Tobacco: Every Day Cigarettes 0.5 41 Passive Smoke Exposure: Current Smokeless Tobacco: Never Tobacco Cessation:Ready to Q uit: Not Asked; Counseling Given: Not Answered Alcohol Use Standard Drinks/Week Comments Not Currently 0 (1 standard drink = 0.6 oz pur e alcohol) Depression Answer Date Recorded Patient Health Questionnaire-9 Score 0 07/10/2022 Housing Stability Answer Date Recorded What is your housing situation today? I have paolomarcos medley 02/09/[address] you [...] Orientation Straight 02/24/2022 10 :21 AM EDT Last Filed Vital Signs Vital Sign Reading Time Taken Comments Blood Pressure 124/78 03/08/2024 1:00 PM EST Pulse 60 03/08/2024 1:00 PM EST Temperature 36.3 ??C (97.3 ??F) 11/23/2023 11:08 AM E DT Respiratory Rate 19 11/23/2023 11:08 AM EDT Oxygen Saturation 97% 11/23/2023 11:08 AM EDT Inhaled Oxygen Concentration - - Weight 98.9 kg (218 lb) 11/23/2023 11:08 AM EDT Height 170.2 cm (5' 7 ) 11/23/2023 11:08 AM EDT Body Mass Index 34.14 11/23/2023 11:08 AM EDT Plan of Treatment Upcoming Encounters Date Type Department Care Team (Late st Contact Info) Description 06/29/2024 9:00 AM EST Clinical Support [facility] [address] [place] [address] Marisol Thomas, RN [address] [place] [address] 07/19/2024 8:00 AM EDT Office Visit [facility] ADULT [facility] [address] [place] [address] Diaz Merida, CEDRICK [address] [place] [address] Health Maintenance Due Date Last Done Comments CT Colonography 1954 FIT DNA/Cologuard 1954 FIT 1954 FOBT 1954 Sigmoidoscopy 1954 Diabetes: Foot Exam 1964 Alcohol/Substance Use Screening 1966 Hepatitis A Vaccines (1 of 2 - Risk 2-dose series) 1973 Lung Cancer Screening 2004 RSV Patients and Patients Aged 60 years or older (1 - Risk 60-74 years 1-dose series) 2014 Depression Screening 07/11/2023 07/10/2022, 07/11/19 23 SDOH Screening 07/11/2023 07/10/2022 COVID-19 Vaccine ( season) 2023 02/12/2021, 07/25/2020, 06/27/2020 Influenza Vaccine (#1) 2023 , 01/10/2022, 02/07/2021, Additional history exists Diabetes: Hemoglobin A1C 05/25/2024 024, 06/02/2023, 03/03/2023, Additional history exists Dental Prophylaxis 09/06/2024 03/08/2024, 0 12/06/2018, 02/20/2014, Additional history exists Dental Oral Exam 09/28/2024 03/29/2024, , 08/04/2013, Additional history exists Eye Exam 12/01/2024 Diabetes: Urine Protein Screening 02/25/2025 02/26/2024, 06/10/2021, 02/19/2021 Lipid Panel 02/25/2025 02/26/2024, 05/28, 02/19/2021, Additional history exists Tobacco Screening 03/29/2025 03/29/2024 Dental X-Ray: Bitewings 03/30/2025 03/29/2024, 05/01 Colonoscopy 02/06/2026 02/06/2023 Colorectal Cancer Screening 02/06/2026 Dental X-Ray: Full Mouth 03/09/2027 03/08/2024, 08/2010 DTaP/Tdap/Td Vaccines (5 - Td or Tdap) 11/22/2033 11/23/2023, 08/27/2013, 08/27/2013, Additional history exists Hepatitis C Screening Completed 06/10/2021 Zoster Vaccines Completed 12/24/2021, 09/26, 08/23/2015 Pneumococcal Vaccine: 50+ Years Completed 11/23/2023, 06/10/2021, 11/20/2011, Additional history exists HIB Vaccines Aged Out No longer eligi [...] patient's age to complete this topic Meningococcal Vaccine Aged Out No ivis rachid eligible based on patient's age to complete this topic RSV under 20 months Aged Out No longe r eligible based on patient's age to complete this topic Rotavirus Vaccines Aged Out No longer eligible based on patient's age to complete this topic Procedures Procedure Name Priority Date/Time Associated Diagnosis Comments AMB REFERRAL TO NEUROSURGERY Routine 06/06/2024 Degenerative disc disease, cervical Spinal stenosis, cervical region POCT LUZMA-14 URINE DRUG SCREEN Routine 03/30/2024 2:26 PM EST Chronic midline low back pain without sciatica CASE PRESENTATION, DETAILED AND EXTENSIVE TREATMENT PLANNING Routine 03/29/2024 3:00 PM EST Dental caries Periodontal disease BITEWINGS - 2 RADIOGRAPHIC IMAGES Routine 03/29/2024 3:00 PM EST Dental caries Periodontal disease COMPREHENSIVE ORAL EVALUATION - NEW OR ESTABLISHED PATIENT Routine 03/29/2024 3:00 PM EST Dental caries Periodontal disease PROPHYLAXIS - ADULT Routine 03/08/2024 1 :00 PM EST PANORAMIC RADIOGRAPHIC IMAGE Routine 03/08/2024 1:00 PM EST ALBUMIN, RANDOM URINE W/CREATININE Routine 02/26/2024 2:00 PM EDT Controlled type 2 diabetes with neuropathy (CMS/HCC) LIPID PANEL, STANDARD Routine 02/26/2024 1:58 PM EDT Controlled type 2 diabetes with neuropathy (CMS/HCC) POCT GLYCATED HEMOGLOBIN, TOTAL Routine 11/23/2023 11:36 AM EDT Controlled type 2 diabetes with neuropathy (CMS/HCC) COLONOSCOPY Routine 02/06/2023 ZZZ HISTORICAL HEPATITIS C AB W/REFL TO HCV RNA, QN, PCR Routine 06/10/2021 11:50 AM EST from Last 3 Months or Most Recently Relevant to Health Maintenance Results * Referral to Neurosurgery (06/06/2024) us Melani Joyce MD OUTPATIENT REFERRAL [facility] Final Result * POCT LUZMA-14 Urine Drug Screen (03/30/2024 2:26 PM EST) Oxycodone Screen, Urine Positive Urine Urine specimen obtained by clean catch procedure / Unknown 03/30/2024 2:26 PM EST Narrative Marisol Thomas RN - 03/30/2024 2:26 PM EST Lot# [id number] Exp: 04-02-25 us Gonzales Brennan MD POINT OF CARE TEST ENTER/ED IT ORDERABLES Final Result * (ABNORMAL) Albumin, Random Urine W/Creatinine (02/26/2024 2:00 PM EDT) Creatinine, Urine 122.05 mg/dL [facility] Microalbumin Urine 1,421.0 mg/L [facility] Microalbum Creatinine Ratio Ur 1,164.2(H ) <30 ug/mg cr [facility] Comment:Albumin/Creatinine R atio Reference Ranges: Normal: < 30 ug/mg creatinine Microalbuminuria: 30 - 300 ug/mg creatinineClinical Albuminuria: > 300 ug/mg creatinine Urine (Urine, Random) 02/26/2024 2:00 PM EDT 02/26/2024 5:55 PM EDT us Gonzales Brennan MD LAB URINE ORDERABLES Final Result [facility] [address] [place] [phone] * (ABNORMAL) Lipid Panel, Standard (02/26/2024 1:58 PM EDT) Triglycerides 253(H) <150 mg/dL [facility] Comment:Desirable Triglyceri de: less than 150 mg/dLBorderline High Triglyceride 150-199 mg/dLHigh Triglyceride: 200-499 mg/dLVery High Triglyceride: greater than or equal to 5OO mg/dL Cholesterol 137 <200 mg/dL [facility] Comment:Desirable Cholestero l: less than 200 mg/dLBorderline High Cholesterol: 200-239 mg/dLHigh Cholesterol: greater than 239 mg/dL LDL Cholesterol Calculated 50 <100 mg/dL [facility] Comment:Desirable LDL: less than 100 mg/dLNear Optimal/Above Optimal LDL: 110- 129 mg/dLBorderline High LDL: 130-159 mg/dLHigh LDL: 160-189 mg/dLVery High LDL: greater than or equal to 190 mg/dL HDL Cholesterol 37(L) >40 mg/dL [facility] Comment:Desirable HDL: great er than 40 mg/dL Note: This HDL assay may give artificially low results in patients with liver disease. Blood Venous blood specimen / Unknown 02/26/2024 1:58 PM EDT 02/26/2024 5:52 PM EDT us Gonzales Brennan MD LAB BLOOD ORDERABLES Final Result [facility] [address] [place] [phone] * (ABNORMAL) POCT HGB A1C (11/23/2023 11:36 AM EDT) Hemoglobin A1C 6.1(A) 4.0 - 6.0 % QC Media Lot # [id number] Lot# Expiration Date [id number] Blood 11/23/2023 11:3 6 AM EDT us Gonzales Brennan MD POINT OF CARE TEST ENTER/ED IT ORDERABLES Final Result * Colonoscopy (02/06/2023) Anatomical Region Laterality Modality Endoscopy Narrative 02/06/2023 3 polyps us Gonzales Brennan MD ENDOSCOPY PROCEDURE ORDERAB LES Final Result * HEPATITIS C AB W/REFL TO HCV RNA, QN, PCR (06/10/2021 11:50 AM EST) HEPATITIS C ANTIBODY NON-REACT ALEXX NON-REACT ALEXX [facility] INDEX 0.23 <1.00 [facility] Comment: ?? HCV antibody was non-reactive. There is no laboratory ?? evidence of HCV infection. ?? In most cases, no further action is required. However, if recent HCV exposure is suspected, a test for HCV RNA (test code 60502) is suggested. ?? For additional information please refer to http://education.GenKyoTex/faq/UPH57i5 (This link is being provided for informational/ educational purposes only.) ?? 06/10/2021 11:5 0 AM EST us Gonzales Brennan MD HISTORICAL/NON ORDERABLE MED PHELPS Final Result [facility] [address] from Last 3 Months or Most Recently Relevant to Health Maintenance Insurance [employer] PPO HS FULL DENTAL - HSN FULL (MEDICAID) Care Teams Brush Painter Relationship Specialty Start Date End Date Gonzales Brennan MD [address] [place] [phone] PCP - General Internal Medicine 04/27/18
--- OUTSIDE RECORDS SUMMARY | 2024-06-21 10:50 | XMS_ITS | Encounter Summary ---
Author Organization [employer] Address [address] [facility] 7 [place] [address] Care Team Providers Care Marketing Sales Consultant Name Role Phone Gonzales Brennan MD Primary Care Provider [phone] Reason for Visit * Reason Onset Date Comments Prior Authorization 06/17/2024 Encounter Details Date Type Department Care Team ([facility] Contact Info) Description 06/17/2024 Telephone [facility] [address] [place] [address] Gonzales Brennan MD [address] [place] [address] Prior Authorization Social History Tobacco Use Types Packs/Day Years [...] encounter Miscellaneous Notes * Telephone Encounter - Sumaya Nichols LPN - 06/17/2024 1:24 PM EST PA generated for hydrOXYzine via CMM pending insurance decision. documented in this encounter Plan of Treatment Upcoming Encounters Date Type Department Care Team (Late st Contact Info) Description 06/29/2024 9:00 AM EST Clinical Support [facility] [address] [place] [address] Marisol Thomas, RN [address] [place] [address] 07/19/2024 8:00 AM EDT Office Visit [facility] [address] [place] [address] Diaz Merida, CEDRICK [address] [place] [address] documented as of this encounter Visit Diagnoses Not on filedocumented in this encounter Additional Health Concerns Assessment Noted Time PHQ-9 Depression Total Score: 0 07/11/19 23 3:46 PM EDT documented as of this encounter Care Teams Marketing Sales Consultant Relationship Specialty Start Date End Date Gonzales Brennan MD [address] [place] [address] PCP - General Internal Medicine 04/27/18 documented as of this encounter
--- OUTSIDE RECORDS SUMMARY | 2024-06-21 10:50 | XMS_ITS | Encounter Summary ---
Author Organization [employer] Address [address] [facility] 7 [place] [address] Care Team Providers Care Operator Maintainer Name Role Phone Gonzales Brennan MD Primary Care Provider [phone] Reason for Visit * Reason Onset Date Comments Hospital Follow-up 08/14/2023 Encounter Details Date Type Department Care Team ([facility] st Contact Info) Description 08/14/2023 Telephone [facility] [address] [place] [address] Gonzales Brennan MD [address] [place] [address] Hospital Follow-up Social History Tobacco Use Types Packs/Day Years [...] encounter Miscellaneous Notes * Telephone Encounter - Zelda Hutson - 08/14/2023 2:10 PM EDT Tc from pt requesting a HDF appt. [facility] Date of admission: 07/29 Discharge date: 08/10 Diagnosed: Pneumonia documented in this encounter Plan of Treatment Upcoming Encounters Date Type Department Care Team (Late st Contact Info) Description 06/29/2024 9:00 AM EST Clinical Support [facility] [address] [place] [address] Marisol Thomas RN [address] [place] [address] 07/19/2024 8:00 AM EDT Office Visit [facility] AD[facility] [address] [place] [address] Diaz Merida DMD [address] [place] [address] documented as of this encounter Visit Diagnoses Not on filedocumented in this encounter Additional Health Concerns Assessment Noted Time PHQ-9 Depression Total Score: 0 07/11/19 23 3:46 PM EDT documented as of this encounter Care Teams Operator Maintainer Relationship Specialty Start Date End Date Gonzales Brennan MD [address] [place] [address] PCP - General Internal Medicine 04/27/18 documented as of this encounter
--- OUTSIDE RECORDS SUMMARY | 2024-06-21 10:50 | XMS_ITS | Encounter Summary ---
Author Organization [employer] Address [address] [facility] 7 [place] [address] Care Team Providers Care Sustainment Logistics Analyst Name Role Phone Gonzales Brennan MD Primary Care Provider [phone] Reason for Visit * Reason Onset Date Comments Referral 05/04/2024 Encounter Details Date Type Department Care Team ([facility] Contact Info) Description 05/04/2024 Telephone [facility] [address] [place] [address] Gonzales Brennan MD [address] [place] [address] Referral Social History Tobacco Use Types Packs/Day [...] encounter Miscellaneous Notes * Telephone Encounter - Rossy Philip - 05/25/2024 12:30 PM EST Most recent notes faxed to [phone]. * Telephone Encounter - Pia Philip - 05/04/2024 3:12 PM EST Tc from Laura from [facility] Neurosurgery facility stating referral was received with CT scan but no office notes, Laura stated she needs notes on referral to be faxed over to them. [phone] documented in this encounter Plan of Treatment Upcoming Encounters Date Type Department Care Team (Late st Contact Info) Description 06/29/2024 9:00 AM EST Clinical Support [facility] [address] [place] [address] Marisol Thomas RN [address] [place] [address] 07/19/2024 8:00 AM EDT Office Visit [facility] ADULT D[facility] [address] [place] [address] Diaz Merida DMD [address] [place] [address] documented as of this encounter Visit Diagnoses Not on filedocumented in this encounter Additional Health Concerns Assessment Noted Time PHQ-9 Depression Total Score: 0 07/11/19 23 3:46 PM EDT documented as of this encounter Care Teams Sustainment Logistics Analyst Relationship Specialty Start Date End Date Gonzales Brennan MD [address] [place] [phone] PCP - General Internal Medicine 04/27/18 documented as of this encounter
--- OUTSIDE RECORDS SUMMARY | 2024-06-21 10:51 | XMS_ITS | Encounter Summary ---
Author Organization [employer] Address [address] [place] [address] [address] [place] [address] Care Team Providers Care Congressional Aide Name Role Phone Gonzales Brennan MD Primary Care Provider [phone] Reason for Referral * Imaging (Routine) - Closed Specialty Diagnoses / Procedures Referred By Contac t Referred To Contact Radiology Diagnoses Neck pain Procedures CT Cervical Spine w/o Contrast Gonzales Brennan MD [address] [place] [address] Phone: tel: fax: [address] Phone: tel: fax: Referral ID Status Reason Start Date Expiration Date Visits Re quested Visits Authorized [id number] Closed 01/27/2024 01/26/2025 1 1 Encounter Details Date Type Department Care Team ([facility] st Contact Info) Description 01/27/2024 Orders Only [facility] CHC MED & PEDS [address] [place] [address] Gonzales Brennan MD [address] [place] [address] Neck pain (Primary Dx) Social History Tobacco [...] as of this encounter Miscellaneous Notes * Result Encounter Note - Melani Joyce MD - 01/27/2024 2:[address] scan c-spine on 02/02/24 (signed and released by Rads provider today) showed significant disc disease and probably spinal stenosis on C-spine, mostly C3-4 which is probably responsible for patient's sxs. Please call him and tell him that his disc disease on upper spine (the one that hasn't had surgery on ) has progressed so I will refer him to Neurosurg to see if it is a surgical dx or not. If it is not surgical , he can be referred to Pain clinic or fu with PCP for addtl rx. , please call him and tell him that referral is ordered documented in this encounter Plan of Treatment Upcoming Encounters Date Type Department Care Team (Late st Contact Info) Description 06/29/2024 9:00 AM EST Clinical Support [facility] MED & PEDS [address] [place] [address] Marisol Thomas RN [address] [place] [address] 07/19/2024 8:00 AM EDT Office Visit [facility] ADULT DENTAL [address] [place] [address] Diaz Merida DMD 505 [place] [address] documented as of this encounter Procedures Procedure Name Priority Date/Time Associated Diagnosis Comments CT CERVICAL SPINE WO CONTRAST Routine 02/02/2024 8:59 AM EDT Neck pain documented in this encounter Results * CT Cervical Spine w/o Contrast (02/02/2024 8:59 AM EDT) Anatomical Region Laterality Modality Spine, C-spine Computed Tomogra phy 02/02/2024 8:59 AM EDT Narrative 04/04/2024 11:41 AM EST ? [facility] ?[address] ?[place] [address] ? CT Scan Report ? Signed ? Patient: Sean Hinkle ?MR#: [id number] ?? 2 ? : 1955 ?Acct:[id number] ? Age/Sex: 68 / M ?ADM Date: 02/02/24 ? Loc: HO.CT ? Attending Dr: Gonzales Brennan MD ? Ordering Physician: Gonzales Brennan MD ?? Date of Service: 02/02/24 ?? Procedure(s): CT cervical spine wo IV con ?? Accession Number(s): [id number] ? cc: Gonzales Brennan MD ? EXAMINATION: ?? CT CERVICAL SPINE WITHOUT CONTRAST ? CLINICAL INFORMATION: ?? Cervicalgia. ??Prior fusion C5-6. Assess for loosening of C6 screws. ? COMPARISON: ?? CT C-spine 09/17/2018. ?? Plain films cervical spine 12/03/2023. ? TECHNIQUE: ?? Spiral CT of the cervical spine was performed in the axial plane from ?? the skull base to the thoracic inlet without IV contrast. Sagittal, ?? coronal, and thin section axial reformatted images were constructed ?? from the axial data set. ? This CT examination was performed using dose optimization techniques as ?? appropriate, variously including the following: ?? *Automated exposure control ?? *Adjustment of mA and/or kV according to patient size (this includes ?? techniques or standardized protocols for targeted exams where dose is ?? matched to indication/reason for exam; i.e. extremities or head) ?? *Use of iterative reconstruction technique ? DLP: ?? 515 mGy-cm ? FINDINGS: ? Alignment: ?? -Lordotic loss, straightened. Mild right convex scoliosis, apex at C7. ?? -3 mm degenerative retrolisthesis C3 on C4. ?? -2 mm degenerative anterolisthesis C7 on T1 and T1 on T2. ?? -Alignment is otherwise anatomic. ? Craniocervical Junction/C1-C2 Articulations: ?? -Intact and aligned. ?? -Degenerative changes atlantoaxial joint. ? Imaged Contents Posterior Fossa: ?? -Within normal limits. ? Vertebral Bodies/Bones: ?? -No compression deformities or suspicious bone lesions. No acute ?? findings. ?? -Fusion of C6-C7 with anterior plate and interbody screws with ?? associated discectomy and disc graft placement. ?? -No evidence of loosening of the C6 or C7 screws on CT. Findings on ?? plain film are consistent with artifact. ?? -Hardware intact, well seated, with bony fusion through the C6-7 disc ?? space and fusion of the uncinate joints. ? Discs: ?? -Severe disc degeneration C3-4 with sclerotic endplate changes. ?? -Mild degeneration C2-3. ?? -Moderate degeneration C4-5, C5-C6, and C7-T1. ? Spinal Canal: ?? -Moderate central canal stenosis focally at C3-4. See below. ?? -Mild to moderate narrowing at C6-7. ?? -No additional regions of significant central canal narrowing ? Cervical Soft Tissues: ?? -Global enlargement of the thyroid without discrete nodules seen. ?? -Mild to moderate calcification bilateral carotid bulbs. ?? -Soft tissues otherwise normal. ?? -There is been a wedge resection right lung apex. ?? -Mildly patulous upper esophagus. ? Axial Disc Space Images: ? C2-C3: Mild bilateral uncinate facet hypertrophy present, contributing ?? to mild bilateral neural foraminal narrowing. No central canal ?? narrowing. ? C3-C4: Diffuse disc osteophytic ridge complex present with a ?? superimposed diffuse disc bulge, combined with severe right greater ?? than left uncinate spurring, and mild bilateral facet degeneration ?? contributes to moderate to severe central canal stenosis, with AP ?? diameter of the canal narrowed to 6 mm (series 4, image 48). There is ?? severe right and moderate to severe left neural foraminal stenosis. ? C4-C5: There is a central disc protrusion which is mildly ?? asymmetrically prominent into the left lateral recess. This indents ?? upon the ventral thecal sac, but only results in mild to moderate ?? central canal stenosis. Mild bilateral uncinate spurring and facet ?? spurring contributes to mild bilateral left greater than right neural ?? foraminal narrowing. ? C5-C6: Central disc protrusion with broad-based present, indenting on ?? the ventral thecal sac, and possibly contacting the cord. Mild to ?? moderate central stenosis. Uncinate spurring and facet spurring ?? bilaterally contribute to moderate right and mild left neural foraminal ?? narrowing. ? C6-C7: Fusion and discectomy at this level. Bony fusion through the ?? disc space. There is a diffuse disc osteophytic ridge complex slightly ?? asymmetrically prominent to the right into the right lateral recess. ?? This indents upon the ventral thecal sac, may contact and mildly ?? impinges the right aspect of the cord. There is moderate central canal ?? stenosis, and moderate right subarticular recess stenosis. Bilateral ?? uncinate spurring is present, contributing to severe bilateral neural ?? foraminal encroachment right greater than left. ? C7-T1: No central canal narrowing. Right greater than left facet and ?? uncinate spurring contributes to moderate bilateral neural foraminal ?? narrowing. ? CT/CT cervical spine wo IV con ?? IMPRESSION: ?? 1. Multilevel cervical spondylosis, moderate in severity as detailed ?? above, most significant C3-4. There is a mild dextroconvex scoliosis, ?? apex at C6-7. ?? 2. Intact C6-7 plate and screw anterior fusion, with no evidence of ?? screw loosening on CT exam. Finding on plain film was likely artifact. ?? There is bony fusion through the disc space at C6-7. ?? 3. At least moderate central canal stenosis at C3-4, and moderate ?? central canal stenosis with right lateral recess stenosis at C6-7 as ?? detailed. ?? 4. See above for additional details and ancillary findings. ?? . ? Electronically signed by: ??Taurus Trent MD ??04/04/2024 11:38 AM EST RP ? Dictated By: ?Taurus Trent MD ? Signed By: ?<Electronically signed by Taurus Trent MD in OV> ?04/04/24 1138 ? DD/ ? TD/TT: 02/02/2414 ? Bilingual Medical Receptionist: ? Procedure Note Camila, Image - 04/04/[address] [place] [id number] [address] Scan Report Signed Patient: Jewell Hinkle#: [id number] 2 : 5Acct:[id number] Age/Sex: 68 / MADM Date: 02/02/24 Loc: HO.CT Attending Dr: Gonzales Brennan MD Ordering Physician: Gonzales Brennan MD Date of Service: 02/02/24 Procedure(s): CT cervical spine wo IV con Accession Number(s): [id number] cc: Gonzales Brennan MD EXAMINATION: CT CERVICAL SPINE WITHOUT CONTRAST CLINICAL INFORMATION: Cervicalgia. Prior fusion C5-6. Assess for loosening of C6 screws. COMPARISON: CT C-spine 09/17/2018. Plain films cervical spine 12/03/2023. TECHNIQUE: Spiral CT of the cervical spine was performed in the axial plane from the skull base to the thoracic inlet without IV contrast. Sagittal, coronal, and thin section axial reformatted images were constructed from the axial data set. This CT examination was performed using dose optimization techniques as appropriate, variously including the following: *Automated exposure control *Adjustment of mA and/or kV according to patient size (this includes techniques or standardized protocols for targeted exams where dose is matched to indication/reason for exam; i.e. extremities or head) *Use of iterative reconstruction technique DLP: 515 mGy-cm FINDINGS: Alignment: -Lordotic loss, straightened. Mild right convex scoliosis, apex at C7. -3 mm degenerative retrolisthesis C3 on C4. -2 mm degenerative anterolisthesis C7 on T1 and T1 on T2. -Alignment is otherwise anatomic. Craniocervical Junction/C1-C2 Articulations: -Intact and aligned. -Degenerative changes atlantoaxial joint. Imaged Contents Posterior Fossa: -Within normal limits. Vertebral Bodies/Bones: -No compression deformities or suspicious bone lesions. No acute findings. -Fusion of C6-C7 with anterior plate and interbody screws with associated discectomy and disc graft placement. -No evidence of loosening of the C6 or C7 screws on CT. Findings on plain film are consistent with artifact. -Hardware intact, well seated, with bony fusion through the C6-7 disc space and fusion of the uncinate joints. Discs: -Severe disc degeneration C3-4 with sclerotic endplate changes. -Mild degeneration C2-3. -Moderate degeneration C4-5, C5-C6, and C7-T1. Spinal Canal: -Moderate central canal stenosis focally at C3-4. See below. -Mild to moderate narrowing at C6-7. -No additional regions of significant central canal narrowing Cervical Soft Tissues: -Global enlargement of the thyroid without discrete nodules seen. -Mild to moderate calcification bilateral carotid bulbs. -Soft tissues otherwise normal. -There is been a wedge resection right lung apex. -Mildly patulous upper esophagus. Axial Disc Space Images: C2-C3: Mild bilateral uncinate facet hypertrophy present, contributing to mild bilateral neural foraminal narrowing. No central canal narrowing. C3-C4: Diffuse disc osteophytic ridge complex present with a superimposed diffuse disc bulge, combined with severe right greater than left uncinate spurring, and mild bilateral facet degeneration contributes to moderate to severe central canal stenosis, with AP diameter of the canal narrowed to 6 mm (series 4, image 48). There is severe right and moderate to severe left neural foraminal stenosis. C4-C5: There is a central disc protrusion which is mildly asymmetrically prominent into the left lateral recess. This indents upon the ventral thecal sac, but only results in mild to moderate central canal stenosis. Mild bilateral uncinate spurring and facet spurring contributes to mild bilateral left greater than right neural foraminal narrowing. C5-C6: Central disc protrusion with broad-based present, indenting on the ventral thecal sac, and possibly contacting the cord. Mild to moderate central stenosis. Uncinate spurring and facet spurring bilaterally contribute to moderate right and mild left neural foraminal narrowing. C6-C7: Fusion and discectomy at this level. Bony fusion through the disc space. There is a diffuse disc osteophytic ridge complex slightly asymmetrically prominent to the right into the right lateral recess. This indents upon the ventral thecal sac, may contact and mildly impinges the right aspect of the cord. There is moderate central canal stenosis, and moderate right subarticular recess stenosis. Bilateral uncinate spurring is present, contributing to severe bilateral neural foraminal encroachment right greater than left. C7-T1: No central canal narrowing. Right greater than left facet and uncinate spurring contributes to moderate bilateral neural foraminal narrowing. CT/CT cervical spine wo IV con IMPRESSION: 1. Multilevel cervical spondylosis, moderate in severity as detailed above, most significant C3-4. There is a mild dextroconvex scoliosis, apex at C6-7. 2. Intact C6-7 plate and screw anterior fusion, with no evidence of screw loosening on CT exam. Finding on plain film was likely artifact. There is bony fusion through the disc space at C6-7. 3. At least moderate central canal stenosis at C3-4, and moderate central canal stenosis with right lateral recess stenosis at C6-7 as detailed. 4. See above for additional details and ancillary findings. . Electronically signed by: Taurus Trent MD 04/04/2024 11:38 AM EST Dictated By: Taurus Trent MD Signed By: <Electronically signed by Taurus Trent MD in OV> 04/04/24 1138 DD/ 0859 TD/TT: 02/02/24 0914 Bilingual Medical Receptionist: Gonzales Brennan MD IMG CT PROCEDURES Final Res ult documented in this encounter Visit Diagnoses Diagnosis Neck pain- Primary Cervicalgia documented in this encounter Additional Health Concerns Assessment Noted Time PHQ-9 Depression Total Score: 0 07/11/19 23 3:46 PM EDT documented as of this encounter Care Teams Congressional Aide Relationship Specialty Start Date End Date Gonzales Brennan MD [address] [place] [phone] PCP - General Internal Medicine 04/27/18 documented as of this encounter
--- OUTSIDE RECORDS SUMMARY | 2024-06-21 10:51 | XMS_ITS | Encounter Summary ---
Author Organization [employer] Address [address] [facility] [address] [place] [address] Care Team Providers Care Control Electrician Name Role Phone Gonzales Brennan MD Primary Care Provider [phone] Encounter Details Date Type Department Care Team ([facility] Contact Info) Description 01/04/2024 Orders Only [facility] CHC MED & PEDS [address] [place], [place] [phone] Gonzales Brennan MD [address] [place], [place] [phone] Essential hypertension (Primary Dx) Social History Tobacco Use Types [...] Miscellaneous Notes * Result Encounter Note - Gonzales Brennan MD - 01/04/2024 1:50 PM EDT Urinalysis shows presence of protein in the urine indicating that patient's kidneys are starting toget affected by his diabetes. Mr Sean Hinkle needs to keep himself well-hydrated documented in this encounter Plan of Treatment Upcoming Encounters Date Type Department Care Team (Late st Contact Info) Description 06/29/2024 9:00 AM EST Clinical Support [facility] MED & PEDS [address] [place] [address] Marisol Thomas, RN [address] [place] [address] 07/19/2024 8:00 AM EDT Office Visit [facility] ADULT DENTAL [address] [place] [address] Diaz Merida, DMD [address] [place] [address] documented as of this encounter Procedures Procedure Name Priority Date/Time Associated Diagnosis Comments URINALYSIS, COMPLETE Routine 01/21/2024 10:50 AM EDT Essential hypertension BASIC METABOLIC PANEL Routine 01/21/2024 10:44 AM EDT Essential hypertension documented in this encounter Results * (ABNORMAL) Urinalysis Complete (01/21/2024 10:50 AM EDT) Color Urine Yellow [facility] Appearance Urine Clear [facility] PH 5.5 5.0 - 9.0 [facility] Glucose Urine UA Negative Negative mg/dL [facility] Urine Blood Negative Negative [facility] Specific [place] - Urine 1.025 1.005 - 1.025 [facility] Urine Protein 300 (3+)(A) Neg-Trace mg/dL [facility] Urine Ketones Negative Negative mg/dL [facility] Nitrite Urine Negative Negative [facility] Leukocyte Esterase Urine Negative Negative [facility] RBC Urine 0-2 0 - 2 /HPF [facility] Urine WBC 0-5 0 - 5 /HPF [facility] Urine Squamous Epithelial Cell 0-2 0 - 2 /HPF [facility] Urine Bacteria None Seen None Seen [facility] Hyaline Casts, Urine 0-2 0 - 2 /LPF [facility] Urine (Urine, Random) 01/21/2024 10:50 AM EDT 01/21/2024 2:10 PM EDT Gonzales Brennan MD LAB URINE ORDERABLES Final Result [facility] [address] [place] [phone] * (ABNORMAL) Basic Metabolic Panel (01/21/2024 10:44 AM EDT) Sodium 142 135 - 145 mmol/L [facility] Potassium 4.3 3.3 - 5.1 mmol/L [facility] Chloride 107 96 - 108 mmol/L [facility] Carbon Dioxide 27 22 - 29 mmol/L [facility] Anion Gap 12 12 - 20 [facility] Urea Nitrogen (BUN) 18(H) 9 - 16 mg/dL [facility] Creatinine, Serum 1.03 0.5 - 1.4 mg/dL [facility] Estimated Glomerular Filt Rate >60 [facility] Comment:NOTE: For -Am erican individuals, multiply the result by 1.210.Chronic Kidney Disease: Estimated GFR < 60 mL/min/1.64v4Biqlwj Kidney Disease: Estimated GFR < 15 mL/min/1.73m2 Glucose 105 60 - 115 mg/dL [facility] Calcium 9.5 8.4 - 10.2 mg/dL [facility] Blood Venous blood specimen / Unknown 01/21/2024 10:44 AM EDT 01/21/2024 2:13 PM EDT us Gonzales Brennan MD LAB BLOOD ORDERABLES Final Result [facility] [address] [place] [phone] [phone] documented in this encounter Visit Diagnoses Diagnosis Essential hypertension- Primary Unspecified essential hypertension documented in this encounter Additional Health Concerns Assessment Noted Time PHQ-9 Depression Total Score: 0 07/11/19 23 3:46 PM EDT documented as of this encounter Care Teams Control Electrician Relationship Specialty Start Date End Date Gonzales Brennan MD [address] [place] [phone] PCP - General Internal Medicine 04/27/18 documented as of this encounter
--- OUTSIDE RECORDS SUMMARY | 2024-06-21 10:51 | XMS_ITS | Encounter Summary ---
Author Organization [employer] Address [address] [place] [address] 7 [place] [address] Care Team Providers Care Foster Care Case Manager Name Role Phone Gonzales Brennan MD Primary Care Provider [phone] Encounter Details Date Type Department Care Team (Latest Contact Info) Description 12/03/2018 Abstract [facility] CONVERSIONS Dental, Provider, DDS Social History Tobacco Use Types Packs/Day Years [...] Upcoming Encounters Date Type Department Care Team ( st Contact Info) Description 06/29/2024 9:00 AM EST Clinical Support [facility] [address] [place] [address] Marisol Thomas RN [address] [place] [address] 07/19/2024 8:00 AM EDT Office Visit [facility] ADULT [facility] [address] [place] [address] Diaz Merida DMD [address] [place] [address] documented as of this encounter Visit Diagnoses Not on filedocumented in this encounter Care Teams Foster Care Case Manager Relationship Specialty Start Date End Date Gonzales Brennan MD [address] [place] [address] PCP - General Internal Medicine 04/27/18 documented as of this encounter
== END 2024-06-21 10:04 | disposition home or self-care (01) ==
PROVIDERS: PCP Internal Medicine; Visit Provider Internal Medicine Cardiovascular Disease
DX: R07.9 Chest pain, unspecified (principal)
CPT/HCPCS: 93010; 99214; G2211

== ENCOUNTER → 2024-06-21 09:37 | Outpatient (BNVA) | payer MEDICARE, SELFPAY | PROVIDERS: PCP Internal Medicine; Visit Provider Internal Medicine Cardiovascular Disease | DX: R07.9 Chest pain, unspecified (principal); F17.210 Nicotine dependence, cigarettes, uncomplicated | CPT/HCPCS: 93005; 99212 ==

== ENCOUNTER 2024-07-01 10:08 | Outpatient (AMB) | payer MEDICARE, SELFPAY ==
--- NOTE | 2024-07-01 10:10 | A.OFFVIS_ITS ---
Vital Signs 07/01/24 10:13 Height 5 ft 7 in Weight 227 lb BMI 35.5 BP 109/60 Blood Pressure Location Rt brachial Position Sitting Pulse 61 Pulse Source Doppler Pulse Oximetry (%) 93 Oxygen Delivery Method Room Air Intake Visit Reasons: COPD Allergies Penicillins [PENICILLINS] Allergy (Severe, Verified 07/01/24 10:17) THROAT SWELLING penicillin V Allergy (Unknown, Verified 07/01/24 10:17) anaphylaxis HPI HPI COPD: Details: 68-year-old gentleman, active 40+ pack-year smoker, r followed for pulmonary nodules and COPD.? He denies family history of lung diseases.? 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 He completed a follow-up CT chest that showed increasing size in his right lower nodule from 8 up to 10 mm and a new right upper lobe 7 mm nodule.? Patient was evaluated by thoracic surgery and decision has been reached to resect right-sided pulmonary nodules with wedge resection with one being a benign tumour and another a non tumour nodule. His follow-up CT scan is pending.? He has been using Trelegy, theophylline, and albuterol MDI/nebs with reasonable control of his underlying COPD. He continuous on diuretic with good control of dyspnea on exertion and orthopnea. Today his complain of ongoing cough productive of yellowish sputum, worse when lying down at night. [facility] Medical History Dysphagia Tubular adenoma Tubular adenoma IBS (irritable bowel syndrome) Personal history of nicotine dependence Diabetes mellitus type 2, controlled Tubular adenoma of colon (~2019) GERD (gastroesophageal reflux disease) H/O benign carcinoid tumor Cough Back pain Anxiety and depression Lung nodule BPH (benign prostatic hyperplasia) Hyperthyroidism Left adrenal mass HLD (hyperlipidemia) CAD (coronary artery disease) Chest pain Obesity HTN (hypertension) COPD (chronic obstructive pulmonary disease) Surgical History History of total adrenalectomy History of colonoscopy History of lithotripsy (~2014) History of bilateral inguinal hernia repair (~2014) History of esophagogastroduodenoscopy (EGD) History of prostate surgery (~2017) History of cholecystectomy (~2019) History of cardiac cath (~2010) Family History Father Cancer Mother Lung cancer Brother Heart attack Social History Household Members Other:: Pt anxious and unable to respond at this time Do you presently have visiting nurse or other home services: Yes ([place]) Alcohol intake: never Comment: Patient refusing all alarms Patient Tobacco Use Status: Former Tobacco user Tobacco use type: Cigarette Cigarette Packs Per Day: 0.5 Cigarettes Per Day: 10.0 Years Smoked: 50 Substance Use Type: Marijuana Advance Directives Date on File: 02/09/20 service: No Review of Systems Const Denies daytime sleepiness, Denies excessive sweating, Denies fatigue, Denies fever(s), Denies lethargy, Denies malaise, Denies night sweats, Denies snoring and Denies weight loss Eyes Denies blurry vision and Denies itchy eyes ENT Denies nasal congestion, Denies post nasal drip, Denies sinus pain, Denies sinus pressure and Denies other ( Thrush) Card Denies chest pain, Denies pedal edema, Denies dyspnea, Denies orthopnea and Denies paroxysmal nocturnal dyspnea Resp Reports cough, Denies hemoptysis, Reports excessive phlegm production, Denies dyspnea, Denies snoring and Denies wheezing GI Denies abdominal pain and Denies heartburn Musc Denies myalgias, Denies arthralgias and Denies joint swelling Skin/Breast Denies rash Neuro Denies memory loss and Denies seizure-like activity Psych Denies abnormal sleep pattern, Denies anxiety and Denies memory loss Endo Denies excessive sweating, Denies fatigue and Denies heat intolerance Kwasi/Lymph Denies easy bruising Aller/Immun Denies itchy eyes, Denies seasonal rhinorrhea and Denies wheezing Physical Exam Vital Signs: Last Vital Signs Pulse 61 07/01/24 10:13 BP 109/60 07/01/24 10:13 Pulse Ox 93 07/01/24 10:13 Oxygen Delivery Method Room Air 07/01/24 10:13 BMI result Body Mass Index 35.5 Const General: no acute distress and alert Nutritional Appearance: obese Orientation/consciousness: Other orientation findings ( oriented) HEENT Head: Yes atraumatic Eyes General: appearance normal, both eyes and all related structures Sclerae: sclerae normal EOM: EOMs intact bilaterally Neck Neck: Yes supple Lymphatic: no lymphadenopathy noted Resp Effort & Inspection: normal respiratory effort and no use of accessory muscles Auscultation: clear to auscultation bilaterally Cardio Rate: regular rate Rhythm: regular rhythm Heart sounds: no gallops, no murmurs and no rubs Skin General skin exam: other ( warm) Extrem General: No clubbing, No cyanosis and Yes edema (Trace bilateral) Assessment & Plan Assessment & Plan (1) COPD (chronic obstructive pulmonary disease): Code(s): J44.9 - Chronic obstructive pulmonary disease, unspecified Category: Medical Plan: Baseline controlled on theophylline, Trelegy, albuterol MDI, and nebs. Continue current regimen. (2) Lung nodule: Code(s): R91.1 - Solitary pulmonary nodule Category: Medical Plan: Follow-up CT chest is pending for July of 2024. (3) Cough: Code(s): R05 - Cough Category: Medical Plan: Will obtain sputum culture. Orders: Orders Sputum Cult + Gram stain Today R05 - Cough Coding Level of Care Code Est Pt Level 4 (24634) Complex EM visit Add On G2211 Diagnoses COPD (chronic obstructive pulmonary disease) J44.9 Lung nodule R91.1 Cough R05
[2024-07-01 10:13] VITALS: BP 109/60; PULSE 61; O2SAT 93; BMI 35.5
--- OUTSIDE RECORDS SUMMARY | 2024-07-01 11:21 | XMS_ITS | Encounter Summary ---
Author Organization [employer] Address [address] [facility] 7 [place] [address] Care Team Providers Care Material Scheduler Name Role Phone Gonzales Brennan MD Primary Care Provider [phone] Reason for Visit * Reason Onset Date Comments Request For Order(s) 12/01/2023 Encounter Details Date Type Department Care Team ([facility] st Contact Info) Description 12/01/2023 Telephone [facility] MEDICINE [address] [place] [address] Gonzales Brennan MD [address] [place] [address] Request For Order(s) Social History Tobacco Use [...] Care Team (Late st Contact Info) Description 07/19/2024 8:00 AM EDT Office Visit [facility] ADULT DENTAL [address] [place] [address] Diaz Merida, CEDRICK [address] [place] [address] 09/14/2024 9:00 AM EDT Clinical Support [facility] MED & PEDS [address] [place] [address] Marisol Thomas, LEVI [address] [place] [address] documented as of this encounter Visit Diagnoses Not on filedocumented in this encounter Additional Health Concerns Assessment Noted Time PHQ-9 Depression Total Score: 0 07/11/19 23 3:46 PM EDT documented as of this encounter Care Teams Material Scheduler Relationship Specialty Start Date End Date Gonzales Brennan MD [address] [place] [address] PCP - General Internal Medicine 04/27/18 documented as of this encounter
--- OUTSIDE RECORDS SUMMARY | 2024-07-01 11:21 | XMS_ITS | Encounter Summary ---
Author Organization [employer] Address [address] [facility] 7t [place] [address] Care Team Providers Care Systems Architect Name Role Phone Gonzales Brennan MD Primary Care Provider [phone] Encounter Details Date Type Department Care Team ([facility] Contact Info) Description 12/02/2023 Orders Only [facility] MED & PEDS [address] [place], [place] [phone] Gonzales Brennan MD [address] [place], [place] [phone] Neck pain (Primary Dx) Social History Tobacco [...] Description 07/19/2024 8:00 AM EDT Office Visit [facility] ADULT DENTAL [address] [place] [address] Diaz Merida DMD [address] [place] [address] 09/14/2024 9:00 AM EDT Clinical Support [facility] MED & PEDS [address] [place] [address] Marisol Thomas, RN [address] [place] [address] Scheduled Orders Name Type Priority Associated Diagnoses [...] EDT Narrative 01/25/2024 3:47 PM EDT ? [facility] ?[address] ?[place] [address] ?XRay Report ? Signed ? Patient: Hinkle,Sean ?MR#: [id number] ?? 2 ? : 1955 ?Acct:[id number] ? Age/Sex: 68 / M ?ADM Date: 08/08/24 ? Loc: HO.XRAY ? Attending Dr: Gonzales Brennan MD ? Ordering Physician: Gonzales Brennan MD ?? Date of Service: 12/03/23 ?? Procedure(s): XR cervical spine 3V ?? Accession Number(s): [id number] ? cc: Gonzales Brennan MD ? EXAMINATION: [...] DD/ 1338 ? TD/TT: 12/03/23 1350 ? Speeder Tender: ? Procedure Note Donotuseinterpreter, Image - 01/25/[address] [address] XRay Report Signed Patient: Sean HinkleMR#: [id number] 2 : 5Acct:[id number] Age/Sex: 68 / MADM Date: 12/03/23 Loc: HO.XRAY Attending Dr: Gonzales Brennan MD Ordering Physician: Gonzales Brennan MD Date of Service: 12/03/23 Procedure(s): XR cervical spine 3V Accession Number(s): [id number] cc: Gonzales Brennan MD EXAMINATION: XR CERVICAL [...] 01/25/24 1544 DD/ 1338 TD/TT: 12/03/23 1350 Speeder Tender: us Thevenin Beauzile MD IMG XR PROCEDURES Final Res ult documented in this encounter Visit Diagnoses Diagnosis Neck pain- Primary Cervicalgia documented in this encounter Additional Health Concerns Assessment Noted Time PHQ-9 Depression Total Score: 0 07/11/19 23 3:46 PM EDT documented as of this encounter Care Teams Systems Architect Relationship Specialty Start Date End Date Gonzales Brennan MD [address] [place] [address] PCP - General Internal Medicine 04/27/18 documented as of this encounter
--- OUTSIDE RECORDS SUMMARY | 2024-07-01 11:21 | XMS_ITS | Encounter Summary ---
Author Organization [employer] Address [address] [facility] 7t [place] [address] Care Team Providers Care Assistant Mechanic Name Role Phone Gonzales Brennan MD Primary Care Provider [phone] Encounter Details Date Type Department Care Team ([facility] Contact Info) Description 06/29/[address] [facility] CHC MED & PEDS [address] [place], [place] [phone] Marisol Thomas, RN [address] [place] [address] Back pain, unspecified back location, unspecified back [...] encounter Miscellaneous Notes * Telephone Encounter - Marisol Thomas RN - 06/29/2024 8:52 AM EST .What SLOT TAG INSERTER Tier would you like this patient to be? Tier 1 = HIGH RISK, Monthly SLOT TAG INSERTER visits Tier 2 = MODerate RISK, Q3 Month visits Tier 3 = LOW RISK = Q4-6 month visits documented in this encounter Plan of Treatment Upcoming Encounters Date Type Department Care Team (Late st Contact Info) Description 07/19/2024 8:00 AM EDT Office Visit [facility] ADULT DENTAL [address] [place] [address] Diaz Merida DMD [address] [place] [address] 09/14/2024 9:00 AM EDT Clinical Support [facility] MED & PEDS [address] [place] [address] Marisol Thomas RN [address] [place] [address] documented as of this encounter Visit Diagnoses Diagnosis Back pain, unspecified back location, unspecified back pain laterality, unspecified chronicity Chronic midline low back pain without sciatica documented in this encounter Additional Health Concerns Assessment Noted Time PHQ-9 Depression Total Score: 0 07/11/19 23 3:46 PM EDT documented as of this encounter Care Teams Assistant Mechanic Relationship Specialty Start Date End Date Gonzales Brennan MD [address] [place] [address] PCP - General Internal Medicine 04/27/18 documented as of this encounter
--- OUTSIDE RECORDS SUMMARY | 2024-07-01 11:21 | XMS_ITS | Clinical Summary ---
Author Organization [facility] Address [address] [place] [address] Care Team Providers Care Hat Braider Name Role Phone Unavailable Primary Care Provider Unavailabl e Surgical History Surgery Date Site/Laterality Comments OTHER SURGICAL HISTORY Right PROCEDURE: AK RESCJ&BRONCHOPLASTY PFRMD TM LOBEC/SGMECTOMY Medical History Medical [...] Documents on File Type Date Recorded Patient Unix Consultant Expl anation Health Care Decision (hx) 08/01/2021 AD CERDA DIRECTIVE Health Care Decision (hx) 08/01/2021 AD CERDA DIRECTIVE
--- OUTSIDE RECORDS SUMMARY | 2024-07-01 11:21 | XMS_ITS | Encounter Summary ---
Author Organization [employer] Address [address] [facility] 7t [place] [address] Care Team Providers Care Sephora Product Consultant Name Role Phone Gonzales Brennan MD Primary Care Provider [phone] Encounter Details Date Type Department Care Team ([facility] Contact Info) Description 08/28/2023 Orders Only [facility] CHC MED & PEDS [address] [place], [place] [phone] Gonzales Brennan MD [address] [place] [address] Atherosclerosis of [place] coronary artery of [place] heart without angina pectoris (Primary Dx) Social [...] 07/19/2024 8:00 AM EDT Office Visit [facility] ADULT DENTAL [address] [place] [address] Diaz Merida DMD [address] [place] [address] 09/14/2024 9:00 AM EDT Clinical Support [facility] MED & PEDS [address] [place] [address] Marisol Thomas, LEVI [address] [place], [place] [phone] documented as of this encounter Visit Diagnoses Diagnosis Atherosclerosis of [place] coronary artery of [place] heart without angina pectoris- Primary documented in this encounter Additional Health Concerns Assessment Noted Time PHQ-9 Depression Total Score: 0 07/11/19 23 3:46 PM EDT documented as of this encounter Care Teams Sephora Product Consultant Relationship Specialty Start Date End Date Gonzales Brennan MD [address] [place] [address] PCP - General Internal Medicine 04/27/18 documented as of this encounter
--- OUTSIDE RECORDS SUMMARY | 2024-07-01 11:21 | XMS_ITS | Encounter Summary ---
Author Organization [employer] Address [address] [facility] 7t [place] [address] Care Team Providers Care Outside Machinist Helper Name Role Phone Gonzales Brennan MD Primary Care Provider [phone] Reason for Visit * Reason Comments controlled substance treatment Encounter Details Date Type Department Care Team (Latest Contact Info) Description 06/29/2024 9:00 AM EST Clinical Support [facility] MED & PEDS [address] [place] [address] Marisol Thomas, LEVI [address] [place], [place] Long-term current use of opiate analgesic Social History Tobacco Use Types Packs/Day Years [...] AM EDT documented as of this encounter Progress Notes * Marisol Thomas RN - 06/29/2024 9:00 AM EST S: ORTHOPEDIC PHYSICIAN ASSISTANT [place]. Pt currently prescribed Oxycodone 5mg Q8 hr PRN. Takes it only PRN. Reports pain level 5/10. Takes Baclofen 10mg bid. States it helps a little but pain is still there. Pt denies use of ETOH or any illicit substances. Smokes 6 cigarettes/day, trying to quit. Patient reports daughter hasa hx of heroin use, states his medication is in a lock box at home. Last PCP visit 11/23/23. No quest ions/ concerns at this time. O: INTERNAL GRINDING MACHINE OPERATOR checked 06/29/24, no discrepancies noted. Pill count performed, patient has 4 pill left, 0 expected. Medication is not being over used. Patient takes it only PRN. Patient has Narcan Rx, patient states he is aware of how to use it if needed, states used it before on other people . Utox performed, positive for OXY only, negative for all other tested substance. A: Chronic opioid use r/t chronic low back pain. P: Patient to continue taking medication only as prescribed; Next ORTHOPEDIC PHYSICIAN ASSISTANT [place] scheduled for 09/14/24 @9am. f/u sooner PRN. Patient verbalized understanding and agreed to plan. documented in this encounter Plan of Treatment Upcoming Encounters Date Type Department Care Team (Late st Contact Info) Description 07/19/2024 8:00 AM EDT Office Visit [facility] ADULT DENTAL [address] [place] [address] Diaz Merida, DMD [address] [place] [address] 09/14/2024 9:00 AM EDT Clinical Support [facility] CHC MED & PEDS [address] [place] [address] Marisol Thomas, RN [address] [place] [address] documented as of this encounter Procedures Procedure Name Priority Date/Time Associated Diagnosis Comments POCT LUZMA-14 URINE DRUG SCREEN Routine 06/29/2024 9:04 AM EST Long-term current use of opiate analgesic documented in this encounter Results * POCT LUZMA-14 Urine Drug Screen (06/29/2024 9:04 AM EST) Oxycodone Screen, Urine Positive Urine Urine specimen obtained by clean catch procedure / Unknown 06/29/2024 9:04 AM EST Narrative Marisol Thomas RN - 06/29/2024 9:04 AM EST Lot# [id number] Exp: 12-14-25 Gonzales Brennan MD POINT OF CARE TEST ENTER/ED IT ORDERABLES Final Result documented in this encounter Visit Diagnoses Diagnosis Long-term current use of opiate analgesic Encounter for long-term (current) use of other medications documented in this encounter Additional Health Concerns Assessment Noted Time PHQ-9 Depression Total Score: 0 07/11/19 23 3:46 PM EDT documented as of this encounter Care Teams Outside Machinist Helper Relationship Specialty Start Date End Date Gonzales Brennan MD [address] [place] [address] PCP - General Internal Medicine 04/27/18 documented as of this encounter
--- OUTSIDE RECORDS SUMMARY | 2024-07-01 11:21 | XMS_ITS | Encounter Summary ---
Author Organization [employer] Address [address] [facility] 7 [place] [address] Care Team Providers Care Manometer Technician Name Role Phone Gonzales Brennan MD Primary Care Provider [phone] Reason for Visit * Reason Onset Date Comments Hospital Follow-up 08/14/2023 Encounter Details Date Type Department Care Team ([facility] st Contact Info) Description 08/14/2023 Telephone [facility] MEDICINE [address] [place] [address] Gonzales Brennan MD [address] [place] [address] Hospital Follow-up Social History Tobacco Use Types [...] from pt requesting a HDF appt. Hospital: [facility] Date of admission: 07/29 Discharge date: 08/10 Diagnosed: Pneumonia documented in this encounter Plan of Treatment Upcoming Encounters Date Type Department Care Team (Late st Contact Info) Description 07/19/2024 8:00 AM EDT Office Visit [facility] ADULT DENTAL [address] [place] [address] Diaz Merida DMD [address] [place] [address] 09/14/2024 9:00 AM EDT Clinical Support [facility] MED & PEDS [address] [place] [address] Marisol Thomas, LEVI [address] [place] [address] documented as of this encounter Visit Diagnoses Not on filedocumented in this encounter Additional Health Concerns Assessment Noted Time PHQ-9 Depression Total Score: 0 07/11/19 23 3:46 PM EDT documented as of this encounter Care Teams Manometer Technician Relationship Specialty Start Date End Date Gonzales Brennan MD [address] [place] [address] PCP - General Internal Medicine 04/27/18 documented as of this encounter
--- OUTSIDE RECORDS SUMMARY | 2024-07-01 11:21 | XMS_ITS | Encounter Summary ---
Author Organization [employer] Address [address] [facility] 7t [place] [address] Care Team Providers Care Patient Access Director Name Role Phone Gonzales Brennan MD Primary Care Provider [phone] Encounter Details Date Type Department Care Team (Latest Contact Info) Description 06/29/2024 Travel Social History Tobacco Use Types Packs/Day Years [...] 8:00 AM EDT Office Visit [facility] ADULT DENTAL [address] [place] [address] Diaz Merida, CEDRICK [address] [place] [address] 09/14/2024 9:00 AM EDT Clinical Support [facility] MED & PEDS [address] [place], [place] [phone] Marisol Thomas, LEVI [address] [place], [place] [phone] documented as of this encounter Visit Diagnoses Not on filedocumented in this encounter Additional Health Concerns Assessment Noted Time PHQ-9 Depression Total Score: 0 07/11/19 23 3:46 PM EDT documented as of this encounter Care Teams Patient Access Director Relationship Specialty Start Date End Date Gonzales Brennan MD [address] [place] [address] PCP - General Internal Medicine 04/27/18 documented as of this encounter
--- OUTSIDE RECORDS SUMMARY | 2024-07-01 11:22 | XMS_ITS | Encounter Summary ---
Author Organization [employer] Address [address] [facility] 7t [place] [address] Care Team Providers Care Compounder Helper Name Role Phone Gonzales Brennan MD Primary Care Provider [phone] Reason for Visit * Reason Comments Med Refill Encounter Details Date Type Department Care Team ([facility] st Contact Info) Description 06/15/2024 Refill [facility] [address] [place] [address] Gonzales Brennan MD [address] [place] [address] Essential hypertension; Atherosclerosis of [place] coronary artery of [place] heart without angina pectoris Social History Tobacco [...] AM EDT Office Visit [facility] ADULT DENTAL [address] [place] [address] Diaz Merida, CEDRICK [address] [place] [address] 09/14/2024 9:00 AM EDT Clinical Support [facility] MED & PEDS [address] [place] [address] Marisol Thomas, RN [address] [place] [address] documented as of this encounter Visit Diagnoses Diagnosis Essential hypertension Unspecified essential hypertension Atherosclerosis of [place] coronary artery of [place] heart without angina pectoris documented in this encounter Additional Health Concerns Assessment Noted Time PHQ-9 Depression Total Score: 0 07/11/19 23 3:46 PM EDT documented as of this encounter Care Teams Compounder Helper Relationship Specialty Start Date End Date Gonzales Brennan MD [address] [place] [address] PCP - General Internal Medicine 04/27/18 documented as of this encounter
--- OUTSIDE RECORDS SUMMARY | 2024-07-01 11:22 | XMS_ITS | Encounter Summary ---
Author Organization [employer] Address [address] [place] [address] 7t [place] [address] Care Team Providers Care Accounts Specialist Name Role Phone Gonzales Brennan MD Primary Care Provider [phone] Reason for Visit * Reason Comments Med Refill Encounter Details Date Type Department Care Team ([facility] Contact Info) Description 05/19/2022 Refill [facility] MEDICINE [address] [place], [place] [phone] Gonzales Brennan MD [address] [place], [place] [phone] Chronic midline low back pain without sciatica [...] Upcoming Encounters Date Type Department Care Team ([facility] Contact Info) Description 07/19/2024 8:00 AM EDT Office Visit [facility] ADULT DENTAL [address] [place], [place] [phone] Diaz Merida DMD [address] [place], [place] [phone] 09/14/2024 9:00 AM EDT Clinical Support [facility] MED & PEDS [address] [place], [place] [phone] Marisol Thomas RN [address] [place] [address] documented as of this encounter Visit Diagnoses Diagnosis Chronic midline low back pain without sciatica documented in this encounter Care Teams Accounts Specialist Relationship Specialty Start Date End Date Gonzales Brennan MD [address] [place] [address] PCP - General Internal Medicine 04/27/18 documented as of this encounter
--- OUTSIDE RECORDS SUMMARY | 2024-07-01 11:22 | XMS_ITS | Encounter Summary ---
Author Organization [employer] Address [address] [facility] 7 [place] [address] Care Team Providers Care Branch Maker Name Role Phone Gonzales Brennan MD Primary Care Provider [phone] Reason for Visit * Reason Onset Date Comments Referral 02/23/2024 Encounter Details Date Type Department Care Team ([facility] Contact Info) Description 02/23/2024 Telephone [facility] MEDICINE [address] [place] [address] Gonzales Brennan MD [address] [place] [address] Referral Social History Tobacco Use Types Packs/Day [...] 12:37 PM) CC looked up patient on [facility] portal. Patient CT scan pictures are visible, but unable to save and scan on patient's chart. CC will send a request to [facility] to send any CT scans reports made, [...] pt. States he had it done at [facility]. I also informed pt. That PCP ordered the lab work that Roseanna REINOSO requested and pt. States he will go get that done today. * Telephone Encounter - Gonzales Brennan MD - 02/24/2024 9:07 PM EDT The order was placed. Please inform us if having further questions. * Telephone Encounter - Pia Philip - 02/23/2024 12:37 PM EDT Tc from Roseanna (CHARTER BOAT CAPTAIN) requesting PCP to assist pt with referral for lab work Urine albumin to creatinine ratio (ACR) . Roseanna (KEMAR) [facility] [phone] documented in this encounter Plan of Treatment Upcoming Encounters Date Type Department Care Team (Late st Contact Info) Description 07/19/2024 8:00 AM EDT Office Visit [facility] ADULT DENTAL [address] [place] [address] Diaz Merida, CEDRICK [address] [place] [address] 09/14/2024 9:00 AM EDT Clinical Support [facility] MED & PEDS [address] [place] [address] Marisol Thomas, LEVI [address] [place] [address] documented as of this encounter Visit Diagnoses Not on filedocumented in this encounter Additional Health Concerns Assessment Noted Time PHQ-9 Depression Total Score: 0 07/11/19 23 3:46 PM EDT documented as of this encounter Care Teams Branch Maker Relationship Specialty Start Date End Date Gonzales Brennan MD [address] [place] [address] PCP - General Internal Medicine 04/27/18 documented as of this encounter
--- OUTSIDE RECORDS SUMMARY | 2024-07-01 11:22 | XMS_ITS | Encounter Summary ---
Author Organization [employer] Address 75 [facility] 7 [place] [address] Care Team Providers Care Ems Manager Name Role Phone Gonzales Brennan MD Primary Care Provider [phone] Reason for Visit * Reason Onset Date Comments Prior Authorization 06/17/2024 Encounter Details Date Type Department Care Team ([facility] Contact Info) Description 06/17/2024 Telephone [facility] [address] [place] [address] Gonzales Brennan MD [address] [place] [address] Prior Authorization Social History Tobacco Use Types [...] [facility] ADULT DENTAL [address] [place] [address] Diaz Merida, CEDRICK [address] [place] [address] 09/14/2024 9:00 AM EDT Clinical Support [facility] MED & PEDS [address] [place] [address] Marisol Thomas, LEVI [address] [place] [address] documented as of this encounter Visit Diagnoses Not on filedocumented in this encounter Additional Health Concerns Assessment Noted Time PHQ-9 Depression Total Score: 0 07/11/19 23 3:46 PM EDT documented as of this encounter Care Teams Ems Manager Relationship Specialty Start Date End Date Gonzales Brennan MD [address] [place] [address] PCP - General Internal Medicine 04/27/18 documented as of this encounter
--- OUTSIDE RECORDS SUMMARY | 2024-07-01 11:22 | XMS_ITS | Encounter Summary ---
Author Organization [employer] Address [address] [place] [address] 7t [place] [address] Care Team Providers Care Airplane Cabin Attendant Name Role Phone Gonzales Brennan MD Primary Care Provider [phone] Encounter Details Date Type Department Care Team ([facility] Contact Info) Description 08/22/2022 Orders Only [facility] MED & PEDS [address] [place], [place] [phone] Cinthia Rodas LPN Social History Tobacco Use Types Packs/Day [...] Upcoming Encounters Date Type Department Care Team ([facility] Contact Info) Description 07/19/2024 8:00 AM EDT Office Visit [facility] ADULT DENTAL [address] [place] [address] Diaz Merida, CEDRICK [address] [place], [place] [phone] 09/14/2024 9:00 AM EDT Clinical Support [facility] CH[facility] MED & PEDS [address] [place] [address] Marisol Thomas, RN [address] [place] [address] documented as of this encounter Visit Diagnoses Not on filedocumented in this encounter Additional Health Concerns Assessment Noted Time PHQ-9 Depression Total Score: 0 07/11/19 23 3:46 PM EDT documented as of this encounter Care Teams Airplane Cabin Attendant Relationship Specialty Start Date End Date Gonzales Brennan MD [address] [place] [address] PCP - General Internal Medicine 04/27/18 documented as of this encounter
--- OUTSIDE RECORDS SUMMARY | 2024-07-01 11:22 | XMS_ITS | Encounter Summary ---
Author Organization [employer] Address 75 [facility] 7t [place] [address] Care Team Providers Care Boarder Steam Name Role Phone Gonzales Brennan MD Primary Care Provider [phone] Reason for Visit * Reason Comments Med Refill Encounter Details Date Type Department Care Team ([facility] st Contact Info) Description 06/10/2024 Refill [facility] MEDICINE [address] [place] [address] Gonzales Brennan MD [address] [place] [address] Anxiety state Social History Tobacco Use Types [...] Description 07/19/2024 8:00 AM EDT Office Visit [facility] ADULT DENTAL [address] [place], [place] [phone] Diaz Merida DMD 505 [place] [address] 09/14/2024 9:00 AM EDT Clinical Support [facility] MED & PEDS [address] [place], [place] [phone] Marisol Thomas, RN [address] [place] [address] documented as of this encounter Visit Diagnoses Diagnosis Anxiety state Anxiety state, unspecified documented in this encounter Additional Health Concerns Assessment Noted Time PHQ-9 Depression Total Score: 0 07/11/19 23 3:46 PM EDT documented as of this encounter Care Teams Boarder Steam Relationship Specialty Start Date End Date Gonzales Brennan MD [address] [place] [address] PCP - General Internal Medicine 04/27/18 documented as of this encounter
--- OUTSIDE RECORDS SUMMARY | 2024-07-01 11:22 | XMS_ITS | Encounter Summary ---
Author Organization [employer] Address 75 [facility] 7t [place] [address] Care Team Providers Care Managed Services Consultant Name Role Phone Gonzales Brennan MD Primary Care Provider [phone] Encounter Details Date Type Department [facility] Team ([facility] Contact Info[facility] Description 02/24/2024 Orders Only [facility] CHC MED & PEDS [address] [place], [place] [phone] Gonzales Brennan MD [address] [place], [place] [phone] Controlled type 2 diabetes with neuropathy (CMS/HCC) [...] Description 07/19/2024 8:00 AM EDT Office Visit [facility] ADULT DENTAL [address] [place] [address] Diaz Merida DMD [address] [place] [address] 09/14/2024 9:00 AM EDT Clinical Support [facility] MED & PEDS [address] [place], [place] [phone] Marisol Thomas, RN [address] [place], [place] [phone] documented as of this encounter Procedures Procedure Name Priority Date/Time Associated Diagnosis Comments ALBUMIN, RANDOM URINE W/CREATININE Routine 02/26/2024 2:00 PM EDT Controlled type 2 diabetes with neuropathy ([facility]/HCC) documented in this encounter Results * (ABNORMAL) Albumin, Random Urine W/Creatinine (02/26/2024 2:00 PM EDT) Creatinine, Urine 122.05 mg/dL [facility] Microalbumin Urine 1,421.0 mg/L [facility] Microalbum Creatinine Ratio Ur 1,164.2(H ) <30 ug/mg cr [facility] Comment:Albumin/Creatinine R atio Reference Ranges: Normal: < 30 ug/mg creatinine Microalbuminuria: 30 - 300 ug/mg creatinineClinical Albuminuria: > 300 ug/mg creatinine Urine (Urine, Random) 02/26/2024 2:00 PM EDT 02/26/2024 5:55 PM EDT Gonzales Brennan MD LAB URINE ORDERABLES Final Result [facility] [address] [place] [address] [phone] documented in this encounter Visit Diagnoses Diagnosis Controlled type 2 diabetes with neuropathy (CMS/HCC)- Primary Type II or unspecified type diabetes mellitus with neurological manifestations, not stated as uncontrolled documented in this encounter Additional Health Concerns Assessment Noted Time PHQ-9 Depression Total Score: 0 07/11/19 23 3:46 PM EDT documented as of this encounter Care Teams Managed Services Consultant Relationship Specialty Start Date End Date Gonzales Brennan MD [address] [place] [phone] PCP - General Internal Medicine 04/27/18 documented as of this encounter
--- OUTSIDE RECORDS SUMMARY | 2024-07-01 11:22 | XMS_ITS | Encounter Summary ---
Author Organization [employer] Address [address] [facility] 7t [place] [address] Care Team Providers Care Supervisor Forming And Tempering Name Role Phone Gonzales Brennan MD Primary Care Provider [phone] Encounter Details Date Type Department Care Team ([facility] Contact Info) Description 01/04/2024 Orders Only [facility] CHC MED & PEDS [address] [place], [place] [phone] Gonzales Brennan MD [address] [place], [place] [phone] Essential hypertension (Primary Dx) Social History Tobacco [...] Description 07/19/2024 8:00 AM EDT Office Visit [facility] ADULT DENTAL [address] [place] [address] Diaz Merida, CEDRICK [address] [place] [address] 09/14/2024 9:00 AM EDT Clinical Support [facility] MED & PEDS [address] [place] [address] Marisol Thomas RN [address] [place] [address] documented as of this encounter Procedures Procedure Name Priority Date/Time Associated Diagnosis Comments URINALYSIS, COMPLETE Routine 01/21/2024 10:50 AM EDT Essential hypertension BASIC METABOLIC PANEL Routine 01/21/2024 10:44 AM EDT Essential hypertension documented in this encounter Results * (ABNORMAL) Urinalysis Complete (01/21/2024 10:50 AM EDT) Color Urine Yellow [facility] Appearance Urine Clear [facility] PH 5.5 5.0 - 9.0 [facility] Glucose Urine UA Negative Negative mg/dL [facility] Urine Blood Negative Negative [facility] Specific [place] - Urine 1.025 1.005 - 1.025 [facility] Urine Protein 300 (3+)(A) Neg-Trace mg/dL [facility] Urine Ketones Negative Negative mg/dL [facility] Nitrite Urine Negative Negative [facility] Leukocyte Esterase Urine Negative Negative [facility] RBC Urine 0-2 0 - 2 /HPF [facility] Urine WBC 0-5 0 - 5 /HPF [facility] Urine Squamous Epithelial Cell 0-2 0 - 2 /HPF [facility] Urine Bacteria None Seen None Seen [facility] Hyaline Casts, Urine 0-2 0 - 2 /LPF [facility] Urine (Urine, Random) 01/21/2024 10:50 AM EDT 01/21/2024 2:10 PM EDT Gonzales Brennan MD LAB URINE ORDERABLES Final Result [facility] [address] [place] [phone] * (ABNORMAL) Basic Metabolic Panel (01/21/2024 10:44 AM EDT) Sodium 142 135 - 145 mmol/L [facility] Potassium 4.3 3.3 - 5.1 mmol/L [facility] Chloride 107 96 - 108 mmol/L [facility] Carbon Dioxide 27 22 - 29 mmol/L [facility] Anion Gap 12 12 - 20 [facility] Urea Nitrogen (BUN) 18(H) 9 - 16 mg/dL [facility] Creatinine, Serum 1.03 0.5 - 1.4 mg/dL [facility] Estimated Glomerular Filt Rate >60 [facility] Comment:NOTE: For -Am erican individuals, multiply the result by 1.210.Chronic Kidney Disease: Estimated GFR < 60 mL/min/1.93v2Sjectz Kidney Disease: Estimated GFR < 15 mL/min/1.73m2 Glucose 105 60 - 115 mg/dL [facility] Calcium 9.5 8.4 - 10.2 mg/dL [facility] Blood Venous blood specimen / Unknown 01/21/2024 10:44 AM EDT 01/21/2024 2:13 PM EDT us Gonzales Brennan MD LAB BLOOD ORDERABLES Final Result [facility] [address] [place] [address] [phone] documented in this encounter Visit Diagnoses Diagnosis Essential hypertension- Primary Unspecified essential hypertension documented in this encounter Additional Health Concerns Assessment Noted Time PHQ-9 Depression Total Score: 0 07/11/19 23 3:46 PM EDT documented as of this encounter Care Teams Supervisor Forming And Tempering Relationship Specialty Start Date End Date Gonzales Brennan MD [address] [place] [phone] PCP - General Internal Medicine 04/27/18 documented as of this encounter
--- OUTSIDE RECORDS SUMMARY | 2024-07-01 11:22 | XMS_ITS | Encounter Summary ---
Author Organization [employer] Address [address] [place] [address] 7 [place] [address] Care Team Providers Care Patient Accounts Clerk Name Role Phone Gonzales Brennan MD Primary Care Provider [phone] Encounter Details Date Type Department Care Team (Latest Contact Info) Description 12/03/2018 Abstract [facility] CONVERSIONS Dental, Provider, DDS Social History Tobacco [...] Care Team ( st Contact Info) Description 07/19/2024 8:00 AM EDT Office Visit [facility] ADULT DENTAL [address] [place] [address] Diaz Merida DMD [address] [place] [address] 09/14/2024 9:00 AM EDT Clinical Support [facility] MED & PEDS [address] [place] [address] Marisol Thomas, LEVI [address] [place] [address] documented as of this encounter Visit Diagnoses Not on filedocumented in this encounter Care Teams Patient Accounts Clerk Relationship Specialty Start Date End Date Gonzales Brennan MD [address] [place] [address] PCP - General Internal Medicine 04/27/18 documented as of this encounter
--- OUTSIDE RECORDS SUMMARY | 2024-07-01 11:22 | XMS_ITS | Clinical Summary ---
Author Organization [employer] Address [address] [place] [address] 7[address] [place] [address] Care Team Providers Care Sand Wheeler Name Role Phone Gonzales Brennan MD Primary Care Provider [phone] Allergies Active Allergy Reactions Criticality Noted Date [...] (Nitrostat) 0.4 MG SL tabletIndications :Atherosclerosis of [place] coronary artery of [place] heart without angina pectoris take 1 Tablet [...] ONE TABLET EVERY MORNING 60 tablet 5 024 Active hydrOXYzine HCl (Atarax) 50 MG tablet TAKE ONE TABLET every night at bedtime 30 tablet 11 024 Active gabapentin (Neurontin) 600 MG tabletIndications :Type 2 diabetes mellitus with hyperglycemia, without long-term current use of insulin ([facility]) TAKE ONE TABLET THREE TIMES DAILY IN THE MORNING, EVENING AND BEDTIME 90 tablet 3 024 Active Sodium Fluoride (Clinpro 5000) 1.1 % pasteIndications: Dental caries [place] teeth for 2 minutes, morning and night. Spit, do not rinse. Do not eat or drink anything for 30 minutes following use. 339 g 3 024 Active metFORMIN (Glucophage) 1000 MG tablet TAKE ONE TABLET IN THE MORNING AND EVENING 60 tablet 5 024 Active celecoxib (CeleBREX) 200 MG capsule TAKE ONE CAPSULE EVERY MORNING FOR 10 DAYS 10 capsule 025 Active FLUoxetine (PROzac) 40 MG capsuleIndication s:Anxiety state TAKE ONE CAPSULE EVERY MORNING 30 capsule 025 Active Aspirin Adult Low Strength 81 MG EC tabletIndications :Essential hypertension,Athe rosclerosis of [place] coronary artery of [place] heart without angina pectoris TAKE ONE TABLET EVERY NIGHT AT BEDTIME 30 tablet 11 02/20/2 025 Active oxyCODONE (Roxicodone) 5 MG immediate release tabletIndications :Back pain, unspecified back location, unspecified back pain laterality, unspecified chronicity,Chroni c midline low back pain without sciatica Take 1 tablet (5 mg) by mouth every 8 (eight) hours if needed for severe pain. 42 tablet 025 Active baclofen (Lioresal) 10 MG tabletIndications :Back pain, unspecified back location, unspecified back pain laterality, unspecified chronicity Take 1 tablet (10 mg) by mouth 2 times daily. 30 tablet 3 025 Active FLUoxetine (PROzac) 40 MG capsuleIndication s:Anxiety state TAKE ONE CAPSULE EVERY MORNING 30 capsule 11 024 2024 Discontinued Aspirin Adult Low Strength 81 MG EC tabletIndications :Essential hypertension,Athe rosclerosis of [place] coronary artery of [place] heart without angina pectoris TAKE ONE TABLET every night at bedtime 30 tablet 11 024 2024 Discontinued baclofen (Lioresal) 10 MG tabletIndications :Back pain, unspecified back location, unspecified back pain laterality, unspecified chronicity Take 1 tablet (10 mg) by mouth 2 times daily. 30 tablet 3 024 2024 Discontinued(R eorder (will not trigger notification to Pharmacy)) oxyCODONE (Roxicodone) 5 MG immediate release tabletIndications :Back pain, unspecified back location, unspecified back pain laterality, unspecified chronicity,Chroni c midline low back pain without sciatica TAKE ONE TABLET EVERY 8 HOURS NEEDED FOR SEVERE PAIN 42 tablet 025 2024 Discontinued(R eorder (will not trigger notification to Pharmacy)) Active Problems Problem Noted Date Diagnosed Date Long-term current use of opiate analgesic 2024 Spinal stenosis, cervical region 04/04/2024 Degenerative disc disease, cervical 04/04/2024 COPD (chronic obstructive pulmonary disease) 10/202203/03/2023 GERD (gastroesophageal reflux disease) 3 03/03/2023 Adrenal mass 03/09/2020 Atherosclerosis of [place] co ronary artery of [place] heart without angina pectoris 07/26/2018 Gastrocnemius tendon rupture 07/26/2018 Bilateral recurrent inguinal hernia 02/12/2015 Controlled type 2 diabetes with neuropathy 05/27 Headache 05/27/2011 Tobacco dependence syndrome 05/27/2011 Essential hypertension 12/20/2010 Depressive disorder 11/20/2010 Anxiety state 04/05/2010 Encounters Date Type Department Care Team Description 06/29/2024 9:00 AM EST Clinical Support [facility] [address] [place] [address] Marisol Thomas, RN Long-term current use of opiate analgesic 06/29/2024 Refill [facility] [address] [place] [address] Marisol Thomas, LEVI Back pain, unspecified back location, unspecified back pain laterality, unspecified chronicity; Chronic midline low back pain without sciatica 06/29/2024 Travel 06/17/2024 Telephone [facility] [address] [place] [address] Gonzales Brennan MD Prior Authorization 06/15/2024 Refill [facility] MEDICINE [address] [place] [address] Gonzales Brennan MD Essential hypertension; Atherosclerosis of [place] coronary artery of [place] heart without angina pectoris 06/10/2024 Refill [facility] [address] [place] [address] Gonzales Brennan MD Anxiety state 05/20/2024 Refill [facility] [address] [place] [address] Gonzales Brennan MD Back pain, unspecified back location, unspecified back pain laterality, unspecified chronicity; Chronic midline low back pain without sciatica 05/04/2024 Telephone [facility] [address] [place] [address] Gonzales Brennan MD Referral 05/02/2024 Telephone [facility] [address] [place], [place] [phone] Melani Joyce MD 04/21/2024 Refill [facility] [address] [place] [address] Gonzales Brennan MD 04/04/2024 Telephone [facility] [address] [place] [address] Gonzales Brennan MD 04/04/2024 Orders Only [facility] [address] [place] [address] Melani Joyce MD Degenerative disc disease, cervical (Primary Dx); Spinal stenosis, cervical region from Last 3 Months Immunizations Name Administration [...] Description 07/19/2024 8:00 AM EDT Office Visit [facility] ADULT DENTAL [address] [place] [address] Diaz Merida, CEDRICK [address] [place] [address] 09/14/2024 9:00 AM EDT Clinical Support [facility] [address] [place] [address] Marisol Thomas, RN [address] [place] [address] Health Maintenance Due Date Last Done Comments [...] EST Long-term current use of opiate analgesic AMB REFERRAL TO NEUROSURGERY Routine 06/06/2024 Degenerative disc disease, cervical Spinal stenosis, cervical region BITEWINGS - 2 RADIOGRAPHIC IMAGES Routine 03/29/2024 [...] Recently Relevant to Health Maintenance Results * POCT LUZMA-14 Urine Drug Screen (06/29/2024 9:04 AM EST) Oxycodone Screen, Urine Positive Urine Urine specimen obtained by clean catch procedure / Unknown 06/29/2024 9:04 AM EST Narrative Marisol Thomas RN - 06/29/2024 9:04 AM EST Lot# [id number] Exp: 12-14-25 us Gonzales Brennan MD POINT OF CARE TEST ENTER/ED IT ORDERABLES Final Result * Referral to Neurosurgery (06/06/2024) us Melani Joyce MD OUTPATIENT REFERRAL [facility] Final Result * (ABNORMAL) Albumin, Random Urine W/Creatinine (02/26/2024 2:00 PM EDT) Creatinine, Urine 122.05 mg/dL [facility] Microalbumin Urine 1,421.0 mg/L H [facility] Microalbum Creatinine Ratio Ur 1,164.2(H ) <30 ug/mg cr [facility] Comment:Albumin/Creatinine R at Reference Ranges: Normal: < 30 ug/mg creatinine Microalbuminuria: 30 - 300 ug/mg creatinineClinical Albuminuria: > 300 ug/mg creatinine Urine (Urine, Random) 02/26/2024 2:00 PM EDT 02/26/2024 5:55 PM EDT us Gonzales Brennan MD LAB URINE ORDERABLES Final Result [facility] [address] [place] [phone] [phone] * (ABNORMAL) Lipid Panel, Standard (02/26/2024 1:58 PM EDT) Triglycerides 253(H) <150 mg/dL [facility] Comment:Desirable Triglyceri de: less than 150 mg/dLBorderline High Triglyceride 150-199 mg/dLHigh Triglyceride: 200-499 mg/dLVery High Triglyceride: greater than or equal to 5OO mg/dL Cholesterol 137 <200 mg/dL [facility] Comment:Desirable Cholestero l: less than 200 mg/dLBorderline High Cholesterol: 200-239 mg/dLHigh Cholesterol: greater than 239 mg/dL LDL Cholesterol Calculated 50 <100 mg/dL [facility] Comment:Desirable LDL: less than 100 mg/dLNear Optimal/Above Optimal LDL: 110- 129 mg/dLBorderline High LDL: 130-159 mg/dLHigh LDL: 160-189 mg/dLVery High LDL: greater than or equal to 190 mg/dL HDL Cholesterol 37(L) >40 mg/dL [facility] Comment:Desirable HDL: great er than 40 mg/dL Note: This HDL assay may give artificially low results in patients with liver disease. Blood Venous blood specimen / Unknown 02/26/2024 1:58 PM EDT 02/26/2024 5:52 PM EDT us Gonzales Brennan MD LAB BLOOD ORDERABLES Final Result [facility] [address] [place] [address] [phone] * (ABNORMAL) POCT HGB A1C (11/23/2023 11:36 AM EDT) Hemoglobin A1C 6.1(A) 4.0 - 6.0 % QC Media Lot # [id number] Lot# Expiration Date [id number] Blood 11/23/2023 11:3 6 AM EDT us Gonzales Brennan MD POINT OF CARE TEST ENTER/ED IT ORDERABLES Final Result * Colonoscopy (02/06/2023) Anatomical Region Laterality Modality Endoscopy Narrative 02/06/2023 3 polyps us Gonzales Brennan MD ENDOSCOPY PROCEDURE ORDERAB LES Final Result * HEPATITIS C AB W/REFL TO HCV RNA, QN, PCR (06/10/2021 11:50 AM EST) HEPATITIS C ANTIBODY NON-REACT ALEXX NON-REACT ALEXX [facility] [facility] INDEX 0.23 <1.00 [facility] Comment: ?? HCV antibody was non-reactive. There is no laboratory ?? evidence of HCV infection. ?? In most cases, no further action is required. However, if recent HCV exposure is suspected, a test for HCV RNA (test code 24245) is suggested. ?? For additional information please refer to http://education.[employer]/faq/ZUG92w6 (This link is being provided for informational/ educational purposes only.) ?? 06/10/2021 11:5 0 AM EST us Gonzales Brennan MD HISTORICAL/NON ORDERABLE LA BS Final Result [facility] [address] from Last 3 Months or Most Recently Relevant to Health Maintenance Insurance [employer] PPO HSN FULL DENTAL - HSN FULL (MEDICAID) Care Teams Sand Wheeler Relationship Specialty Start Date End Date Gonzales Brennan MD [address] [place] [phone] PCP - General Internal Medicine 04/27/18
--- OUTSIDE RECORDS SUMMARY | 2024-07-01 11:22 | XMS_ITS | Encounter Summary ---
Author Organization [employer] Address [address] [facility] 7 [place] [address] Care Team Providers Care Injury/Safety Hazard Assessment Name Role Phone Gonzales Brennan MD Primary Care Provider [phone] Reason for Visit * Reason Onset Date Comments Referral 05/04/2024 Encounter Details Date Type Department Care Team ([facility] Contact Info) Description 05/04/2024 Telephone [facility] [address] [place] [address] Gonzales Brennan MD [address] [place] [address] Referral Social History Tobacco Use Types Packs/Day [...] PM EST Most recent notes faxed to [phone]. * Telephone Encounter - Pia Philip - 05/04/2024 3:12 PM EST Tc from Laura from [facility] stating referral was received with CT scan but no office notes, Laura stated she needs notes on referral to be faxed over to them. [phone] documented in this encounter Plan of Treatment Upcoming Encounters Date Type Department Care Team (Late st Contact Info) Description 07/19/2024 8:00 AM EDT Office Visit [facility] ADULT DENTAL [address] [place] [address] Diaz Merida DMD [address] [place] [address] 09/14/2024 9:00 AM EDT Clinical Support [facility] MED [facility] PED[facility] [address] [place] [address] Marisol Thomas RN [address] [place] [address] documented as of this encounter Visit Diagnoses Not on filedocumented in this encounter Additional Health Concerns Assessment Noted Time PHQ-9 Depression Total Score: 0 07/11/19 23 3:46 PM EDT documented as of this encounter Care Teams Injury/Safety Hazard Assessment Relationship Specialty Start Date End Date Gonzales Brennan MD [address] [place] [id number] PCP - General Internal Medicine 04/27/18 documented as of this encounter
--- OUTSIDE RECORDS SUMMARY | 2024-07-01 11:22 | XMS_ITS | Encounter Summary ---
Author Organization [employer] Address [address] [place] [address] [address] [place] [address] Care Team Providers Care Hand Silvering Supervisor Name Role Phone Gonzales Brennan MD Primary Care Provider [phone] Reason for Referral * Imaging (Routine) - Closed Specialty Diagnoses / Procedures Referred By Contac t Referred To Contact Radiology Diagnoses Neck pain Procedures CT Cervical Spine w/o Contrast Gonzales Brennan MD [address] [place] [address] Phone: tel: fax: [address] Phone: tel: fax: Referral ID Status Reason Start Date Expiration Date Visits Re quested Visits Authorized [id number] Closed 01/27/2024 01/26/2025 1 1 Encounter Details Date Type Department Care Team ([facility] st Contact Info) Description 01/27/2024 Orders Only [facility] MED & PEDS [address] [place] [address] Gonzales Brennan MD [address] [place] [address] Neck pain (Primary Dx) Social History Tobacco [...] 8:00 AM EDT Office Visit [facility] ADULT DENTAL [address] [place] [address] Diaz Merida DMD [address] [place] [address] 09/14/2024 9:00 AM EDT Clinical Support [facility] MED [facility] PEDS [address] [place] [address] Marisol Thomas RN [address] [place] [address] documented as of this encounter Procedures Procedure Name Priority Date/Time Associated Diagnosis Comments CT CERVICAL SPINE WO CONTRAST Routine 02/02/2024 8:59 AM EDT Neck pain documented in this encounter Results * CT Cervical Spine w/o Contrast (02/02/2024 8:59 AM EDT) Anatomical Region Laterality Modality Spine, C-spine Computed Tomogra phy 02/02/2024 8:59 AM EDT Narrative 04/04/2024 11:41 AM EST ? [facility] ?[address] ?[place] [address] ? CT Scan Report ? Signed ? Patient: Sean Hinkle ?MR#: [id number] ?? 2 ? : 1955 ?Acct:[id number] ? Age/Sex: 68 / M ?ADM Date: 02/02/24 ? Loc: HO.CT ? Attending Dr: Gonzales Brennan MD ? Ordering Physician: Gonzales Brennan MD ?? Date of Service: 02/02/24 ?? Procedure(s): CT cervical spine wo IV con ?? Accession Number(s): [id number] ? cc: Gonzales Brennan MD ? EXAMINATION: [...] 1138 ? DD/ ? TD/TT: 02/02/2414 ? Machine Fastener: ? Procedure Note Camila, Image - 04/04/[address] [place] [address] [address] Scan Report Signed Patient: Jewell Hinkle#: [id number] 2 : 5Acct:[id number] Age/Sex: 68 / MADM Date: 02/02/24 Loc: HO.CT Attending Dr: Gonzales Brennan MD Ordering Physician: Gonzales Brennan MD Date of Service: 02/02/24 Procedure(s): CT cervical spine wo IV con Accession Number(s): [id number] cc: Gonzales Brennan MD EXAMINATION: CT CERVICAL [...] 04/04/24 1138 DD/ 0859 TD/TT: 02/02/24 0914 Machine Fastener: Gonzales Brennan MD IMG CT PROCEDURES Final Res ult documented in this encounter Visit Diagnoses Diagnosis Neck pain- Primary Cervicalgia documented in this encounter Additional Health Concerns Assessment Noted Time PHQ-9 Depression Total Score: 0 07/11/19 23 3:46 PM EDT documented as of this encounter Care Teams Hand Silvering Supervisor Relationship Specialty Start Date End Date Gonzales Brennan MD [address] [place] [id number] PCP - General Internal Medicine 04/27/18 documented as of this encounter
== END 2024-07-01 10:31 | disposition home or self-care (01) ==
PROVIDERS: Visit Provider Internal Medicine Pulmonary Disease
DX: J44.9 Chronic obstructive pulmonary disease, unspecified (principal); R91.1 Solitary pulmonary nodule; R05.9 Cough, unspecified
CPT/HCPCS: 99214; G2211

== ENCOUNTER → 2024-07-01 10:08 | Outpatient (BNVA) | payer MEDICARE, SELFPAY | PROVIDERS: Visit Provider Internal Medicine Pulmonary Disease | DX: J44.9 Chronic obstructive pulmonary disease, unspecified (principal); R91.1 Solitary pulmonary nodule; R05.9 Cough, unspecified | CPT/HCPCS: 99212 ==

== ENCOUNTER 2024-08-03 14:55 | Outpatient (REF) | payer MEDICARE, SELFPAY ==
--- NOTE | ~2024-08-03 | CT_ITS ---
CLINICAL HISTORY: Z87.891 - Personal history of nicotine dependence CT lung cancer screening (LDCT) Comparison: CT/REG/SR - CT CHEST WO IV CON - 07/28/23 08:13 EDT Technique: Axial CT images of the chest using low-dose technique. Referring provider counseled the patient on shared decision-making for LDCT screening. Additional counseling was provided on smoking cessation. Effective radiation dose total: DLP 43.4 mGycm, CTDIvol 1.5 mGy. Findings: Lung: Mild emphysema. There is atelectasis of the right lower lobe. Postsurgical changes of the right lung. Stable 2 mm nodule of the left lower lobe series 4, image 81. Stable additional micro nodules. There are calcified granulomas. Coronary artery calcifications: Severe Limited upper abdomen: Unremarkable Other: Decrease in size of the right paratracheal lymph node. Impression: LungRADS 2 - Benign Appearance: Continue annual screening with low dose Chest CT in 12 months. ##L2# Category 1: Normal; continue annual screening Category 2: Benign appearance or behavior, continue annual screening Category 3: Probably benign, [address] recommended Category 4A: Suspicious, [address] recommended; may consider PET/CT Category 4B: Suspicious, Additional diagnostics and/or tissue sampling recommended Category 4X: Suspicious, Additional diagnostics and/or tissue sampling recommended Category 0: Recalls (incomplete screen due to Incomplete coverage, Noise, Respiratory motion, Expiration, Obscured by acute abnormality) This document has been electronically signed by: Benito Ortega MD on 08/04/2024 13:24:20
--- OUTSIDE RECORDS SUMMARY | 2024-08-03 17:06 | XMS_ITS | Clinical Summary ---
Author Organization [facility] Address [address] [place] [address] Care Team Providers Care Biopsychologist Name Role Phone Unavailable Primary Care Provider Unavailabl e Surgical History Surgery Date Site/Laterality Comments OTHER SURGICAL HISTORY Right PROCEDURE: NE RESCJ&BRONCHOPLASTY PFRMD TM LOBEC/SGMECTOMY Medical History Medical [...] 2023 Influenza Vaccine (#1) 2023 RSV Immunization Adult Patie nts (1 - 1-dose 75+ series) 2029 HIB [...] age to complete this topic Meningococcal B Vaccine Aged Out No l onger eligible based on patient's age to complete this topic RSV Immunization Patients Un daniel 20 months Aged Out No longer eligible b ased on patient's age to complete this topic Varicella Vaccines Aged Out No longer eligible based on patient's age to complete this topic Advance Directives Documents on File Type Date Recorded 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
== END 2024-08-03 14:56 | disposition home or self-care (01) ==
LOC: HO.CT 14:55
PROVIDERS: Visit Provider Internal Medicine Pulmonary Disease
DX: Z12.2 Encounter for screening for malignant neoplasm of respiratory organs (principal); Z87.891 Personal history of nicotine dependence
CPT/HCPCS: 71271

== ENCOUNTER → 2024-08-03 14:57 | Outpatient (BNV) | payer MEDICARE, SELFPAY | PROVIDERS: Visit Provider Nuclear Medicine | DX: Z87.891 Personal history of nicotine dependence (principal) | CPT/HCPCS: 71271 ==

== ENCOUNTER 2024-08-11 14:10 | Outpatient (REF) | payer MEDICARE, SELFPAY ==
--- OUTSIDE RECORDS SUMMARY | 2024-08-11 17:14 | XMS_ITS | Clinical Summary ---
Author Organization [facility] Address [address] [place] [address] Care Team Providers Care Highway Maintenance Technician Name Role Phone Unavailable Primary Care Provider Unavailabl e Surgical History Surgery Date Site/Laterality Comments OTHER SURGICAL HISTORY Right PROCEDURE: [place] RESCJ&BRONCHOPLASTY PFRMD TM LOBEC/SGMECTOMY Medical History Medical History Date Comments COPD (chronic obstructive pu lmonary disease) (CMS/HCC V24, CMS/HCC V28) DX:COPD (chronic o bstructive pulmonary disease) (HCC) Mixed hyperlipidemia DX:Mixed hy [...] Influencers of Health Screening 04/06/2022 COVID-19 Vaccine ( - 2023-2 5 season) 2023 Influenza Vaccine (Season Ended) 2024 RSV Immunization Adult Patie nts (1 - [...] Documents on File Type Date Recorded Patient Project Coordinator Rn Expl anation Health Care Decision (hx) 08/01/2021 AD CERDA DIRECTIVE Health Care Decision (hx) 08/01/2021 AD CERDA DIRECTIVE
--- OUTSIDE RECORDS SUMMARY | 2024-08-11 17:14 | XMS_ITS | Encounter Summary ---
Author Organization [employer] Address [address] [facility] 7t [place] [address] Care Team Providers Care Credit And Loan Collections Supervisor Name Role Phone Gonzales Brennan MD Primary Care Provider [phone] Reason for Visit * Reason Comments Pomeroy Patient presents tod for core build and crown prep # 20,21 Encounter Details Date Type Department Care Team ([facility] st Contact Info) Description 08/08/2024 8:00 AM EDT Office Visit [facility] ADULT DENTAL [address] [place], [place] [phone] Diaz Merida, DMD [address] [place] [address] Secondary dental caries associated with failed or defective dental church (Primary Dx); Full coverage crown needed for root canal-treated tooth; Full coverage crown needed for tooth at risk for fracture Social History Tobacco Use Types Packs/Day Years [...] AM EDT documented as of this encounter Last Filed Vital Signs Vital Sign Reading Time Taken Comments Blood Pressure 100/60 08/08/2024 8:09 AM EDT Pulse - - Temperature - - Respiratory Rate - - Oxygen Saturation - - Inhaled Oxygen Concentration - - Weight - - Height - - Body Mass Index - - documented in this encounter Progress Notes * Diaz Merida DMD - 08/08/2024 8:00 AM EDT Patient ID: Sean Hinkle is a 69 y.o. male. Time Out: Timeout Date: 08/08/24, Timeout Time: 808 (core build and crown prep #) Location: [facility] Tooth: #20 and #21 Procedure: Yazdanism and Pomeroy Verified the above with patient, printer's assistant, and provider. Confirmed via patient's chart, intraorally and by radiographs. Count Team Member: not applicable Chief Complaint Patient presents with Pomeroy Patient presents today for core build and crown prep # 20,21 Medical Hx: Vitals: Blood pressure 100/60. Medications, Med Hx reviewed with patient and updated in chart. Consent Obtained: The risks, benefits, indications, potential complications, and alternatives were explained to the patient and informed consent was obtained with good understanding. Treatment Provided: Dental procedures in this visit D2700.1 - CROWN PREP 20,21 (Completed) Service provider: Diaz Merida DMD Billing provider: Diaz Merida DMD [id number] - CORE BUILDUP, INCL ANY PINS WHEN REQ 21 (Completed) Service provider: Diaz Merida DMD Billing provider: Diaz Merida DMD [id number] - CASE PRESENTATION, DETAILED AND EXTENSIVE TREATMENT PLANNING (Completed) Service provider: Diaz Merida DMD Billing provider: Diaz Merida DMD Diagnosis: #21 - full coverage crown needed for root canal treated tooth #22 - MIDFL recurrent decay, significant tooth structure lost to decay. Multiple previous attempts at direct toni with recurrent decay. Full coverage crown indicated Topical: 20% Benzocaine Anesthesia: 4% Septocaine (Articaine) w/ 1:200,000 epinephrine Number of Cartridges: 1 Injection Type: Buccal infiltration Confirmed profound anesthesia. Isolation: high speed suction, cotton rolls, and cheek guard #21 - removed existing temporary church, distal decay #22 - removed existing restorations and recurrent decay Prepared tooth for: Ceramic crown Core BU completed for #21: Etched and rinsed Gluma applied and air thinned I-trevino applied, light cured Voco grandioso shade A3 placed in increments and light cured Prep refinements completed Gingival Retraction: Cord, Size 000 and 00, soaked in hemodent, two cord technique. Cord removal verified prior to discharge Final Impression taken with: [employer] Heavy [employer] Light Body Bite Registration taken with: Triple tray Provisional fabricated with: [employer]igm Temp Material and cemented with: TempBond Alginate pickup impression taken of preps and mandibular partial so lab is able to retrofit crowns. Confirmed adequate clearance against existing complete denture Shade: A3.5 Lab used: [facility] Due Date: 08/22 POI given to patient with instructions for homecare, to avoid sticky or crunchy foods, and to call if temp crown becomes dislodged. All questions answered. Patient tolerated procedure well, and was discharged alert, oriented, and in stable condition. NV: #20,21 crown mail sorter and delivery: Delmy Collado Dentist: Diaz Merida DMD documented in this encounter Plan of Treatment Upcoming Encounters Date Type Department Care Team (Late st Contact Info) Description 08/30/2024 8:00 AM EDT Office Visit [facility] ADULT D[facility]AL [address] [place] [address] Diaz Merida DMD [address] [place] [address] 09/14/2024 9:00 AM EDT Clinical Support [facility] MED & PEDS [address] [place] [address] Marisol Thomas, LEVI [address] [place], [place] 10/17/2024 1:45 PM EDT Office Visit [facility] MED & PEDS [address] [place] [address] Gonzales Brennan MD [address] [place] [address] Scheduled Orders Name Type Priority Associated Diagnoses Orde r Schedule DENTAL LAB FIXED Dental Routine Ordered: 08/08/2024 documented as of this encounter Procedures Procedure Name Priority Date/Time Associated Diagnosis Comments 20,21 CROWN PREP Routine 08/08/2024 8:00 AM EDT Secondary dental caries associated with failed or defective dental church Full coverage crown needed for root canal-treated tooth Full coverage crown needed for tooth at risk for fracture 21 CORE BUILDUP, INCL ANY PINS WHEN REQ Routine 08/08/2024 8:00 AM EDT Full coverage crown needed for root canal-treated tooth CASE PRESENTATION, DETAILED AND EXTENSIVE TREATMENT PLANNING Routine 08/08/2024 8:00 AM EDT Secondary dental caries associated with failed or defective dental church Full coverage crown needed for root canal-treated tooth Full coverage crown needed for tooth at risk for fracture documented in this encounter Visit Diagnoses Diagnosis Secondary dental caries associated with failed or defective dental church- Primary Full coverage crown needed for root canal-treated tooth Full coverage crown needed for tooth at risk for fracture documented in this encounter Additional Health Concerns Assessment Noted Time PHQ-9 Depression Total Score: 0 07/11/19 23 3:46 PM EDT documented as of this encounter Care Teams Credit And Loan Collections Supervisor Relationship Specialty Start Date End Date Gonzales Brennan MD [address] [place] [address] PCP - General Internal Medicine 04/27/18 documented as of this encounter
--- OUTSIDE RECORDS SUMMARY | 2024-08-11 17:14 | XMS_ITS | Encounter Summary ---
Author Organization [facility] [employer] Address [address] [place] [address] 7 [place] [address] Care Team Providers Care Cyber Incident Handler Name Role Phone Gonzales Brennan MD Primary Care Provider [phone] Encounter Details Date Type Department Care Team (Latest Contact Info) Description 12/03/2018 Abstract [facility] CONVERSIONS Dental, Provider, DDS Social History [...] Care Team ( st Contact Info) Description 08/30/2024 8:00 AM EDT Office Visit [facility] ADULT DENTAL [address] [place] [address] Diaz Merida DMD [address] [place] [address] 09/14/2024 9:00 AM EDT Clinical Support [facility] MED & PEDS [address] [place] [address] Marisol Thomas RN [address] [place] [address] 10/17/2024 1:45 PM EDT Office Visit [facility] [address] [place] [address] Gonzales Brennan MD [address] [place] [address] documented as of this encounter Visit Diagnoses Not on filedocumented in this encounter Care Teams Cyber Incident Handler Relationship Specialty Start Date End Date Gonzales Brennan MD [address] [place] [address] PCP - General Internal Medicine 04/27/18 documented as of this encounter
--- OUTSIDE RECORDS SUMMARY | 2024-08-11 17:14 | XMS_ITS | Encounter Summary ---
Author Organization [employer] Address [address] [facility] 7t [place] [address] Care Team Providers Care Civil Process Server Name Role Phone Gonzales Brennan MD Primary Care Provider [phone] Reason for Visit * Reason Comments Med Refill Encounter Details Date Type Department Care Team ([facility] Contact Info) Description 08/11/2024 Refill [facility] MED & PEDS [address] [place], [place] [phone] Gonzales Brennan MD [address] [place] [address] Social History Tobacco Use Types Packs/Day Years [...] Description 08/30/2024 8:00 AM EDT Office Visit [facility] ADULT DENTAL [address] [place] [address] Diaz Merida DMD [address] [place] [address] 09/14/2024 9:00 AM EDT Clinical Support [facility] MED & PEDS [address] [place] [address] Marisol Thomas RN [address] [place] [address] 10/17/2024 1:45 PM EDT Office Visit [facility] MED & PEDS [address] [place] [address] Gonzales Brennan MD [address] [place] [address] documented as of this encounter Visit Diagnoses Not on filedocumented in this encounter Additional Health Concerns Assessment Noted Time PHQ-9 Depression Total Score: 0 07/11/19 23 3:46 PM EDT documented as of this encounter Care Teams Civil Process Server Relationship Specialty Start Date End Date Gonzales Brennan MD [address] [place] [address] PCP - General Internal Medicine 04/27/18 documented as of this encounter
--- OUTSIDE RECORDS SUMMARY | 2024-08-11 17:14 | XMS_ITS | Encounter Summary ---
Author Organization [employer] Address [address] [facility] 7t [place] [address] Care Team Providers Care Motorboat Mechanic Name Role Phone Gonzales Brennan MD Primary Care Provider [phone] Encounter Details Date Type Department Care Team ([facility] Contact Info) Description 12/02/2023 Orders Only [facility] MED & PEDS [address] [place], [place] [phone] Gonzales Brennan MD [address] [place], [place] [phone] Neck pain (Primary Dx) Social History Tobacco [...] Description 08/30/2024 8:00 AM EDT Office Visit [facility] ADULT DENTAL [address] [place] [address] Diaz Merida DMD [address] [place] [address] 09/14/2024 9:00 AM EDT Clinical Support [facility] MED & PEDS [address] [place] [address] Marisol Thomas RN [address] [place] [address] 10/17/2024 1:45 PM EDT Office Visit [facility] MED & PEDS [address] [place] [address] Gonzales Brennan MD [address] [place], [place] [phone] Scheduled Orders Name Type Priority Associated Diagnoses [...] EDT Narrative 01/25/2024 3:47 PM EDT ? [facility] ?[address] ?[place] [address] ?XRay Report ? Signed ? Patient: Hinkle,Sean ?MR#: [id number] ?? 2 ? : 1955 ?Acct:[id number] ? Age/Sex: 68 / M ?ADM Date: 12/03/23 ? Loc: HO.XRAY ? Attending Dr: Gonzales Brennan MD ? Ordering Physician: Gonzales Brennan MD ?? Date of Service: 12/03/23 ?? Procedure(s): XR cervical spine 3V ?? Accession Number(s): [id number] ? cc: Gonzales Brennan MD ? EXAMINATION: [...] DD/ 1338 ? TD/TT: 12/03/23 1350 ? First Line Supervisor: ? Procedure Note Donotuseinterpreter, Image - 01/25/[address] [address] XRay Report Signed Patient: Sean HinkleMR#: [id number] 2 : 5Acct:[id number] Age/Sex: 68 / MADM Date: 12/03/23 Loc: JOAN Attending Dr: Gonzales Brennan MD Ordering Physician: Gonzales Brennan MD Date of Service: 12/03/23 Procedure(s): XR cervical spine 3V Accession Number(s): [id number] cc: Gonzales Brennan MD EXAMINATION: XR CERVICAL [...] 01/25/24 1544 DD/ 1338 TD/TT: 12/03/23 1350 First Line Supervisor: us Gonzales Brennan MD IMG XR PROCEDURES Final Res ult documented in this encounter Visit Diagnoses Diagnosis Neck pain- Primary Cervicalgia documented in this encounter Additional Health Concerns Assessment Noted Time PHQ-9 Depression Total Score: 0 07/11/19 23 3:46 PM EDT documented as of this encounter Care Teams Motorboat Mechanic Relationship Specialty Start Date End Date Gonzales Brennan MD [address] [place] [address] PCP - General Internal Medicine 04/27/18 documented as of this encounter
--- OUTSIDE RECORDS SUMMARY | 2024-08-11 17:14 | XMS_ITS | Encounter Summary ---
Author Organization [employer] Address [address] [facility] 7t [place] [address] Care Team Providers Care Washer Carcass Name Role Phone Gonzales Brennan MD Primary Care Provider [phone] Encounter Details Date Type Department Care Team ([facility] Contact Info) Description 08/28/2023 Orders Only [facility] CHC MED & PEDS [address] [place], [place] [phone] Gonzales Brennan MD [address] [place] [address] Atherosclerosis of [place] coronary artery of [place] heart without angina pectoris (Primary Dx) Social [...] 8:00 AM EDT Office Visit [facility] ADULT DENT[facility] [address] [place] [address] Diaz Merida DMD [address] [place] [address] 09/14/2024 9:00 AM EDT Clinical Support [facility] MED [facility] PEDS [address] [place] [address] Marisol Thomas RN [address] [place] [address] 10/17/2024 1:45 PM EDT Office Visit [facility] MED [facility] PED[facility] [address] [place] [address] Gonzales Brennan MD [address] [place] [address] documented as of this encounter Visit Diagnoses Diagnosis Atherosclerosis of [place] coronary artery of [place] heart without angina pectoris- Primary documented in this encounter Additional Health Concerns Assessment Noted Time PHQ-9 Depression Total Score: 0 07/11/19 23 3:46 PM EDT documented as of this encounter Care Teams Washer Carcass Relationship Specialty Start Date End Date Gonzales Brennan MD [address] [place] [address] PCP - General Internal Medicine 04/27/18 documented as of this encounter
--- OUTSIDE RECORDS SUMMARY | 2024-08-11 17:14 | XMS_ITS | Encounter Summary ---
Author Organization [employer] Address [address] [facility] 7 [place] [address] Care Team Providers Care Superintendent Cemetery Name Role Phone Gonzales Brennan MD Primary Care Provider [phone] Reason for Visit * Reason Onset Date Comments Request For Order(s) 12/01/2023 Encounter Details Date Type Department Care Team ([facility] st Contact Info) Description 12/01/2023 Telephone [facility] MED[facility]INE [address] [place] [address] Gonzales Brennan MD [address] [place] [id number] Request For Order(s) Social History Tobacco Use [...] Description 08/30/2024 8:00 AM EDT Office Visit [facility] ADULT DENT[facility] [address] [place] [address] Diaz Merida, CEDRICK [address] [place] [address] 09/14/2024 9:00 AM EDT Clinical Support [facility] MED & PEDS [address] [place] [address] Marisol Thomas, LEVI [address] [place] [address] 10/17/2024 1:45 PM EDT Office Visit [facility] MED & PED[facility] [address] [place] [address] Gonzales Brennan MD [address] [place] [address] documented as of this encounter Visit Diagnoses Not on filedocumented in this encounter Additional Health Concerns Assessment Noted Time PHQ-9 Depression Total Score: 0 07/11/19 23 3:46 PM EDT documented as of this encounter Care Teams Superintendent Cemetery Relationship Specialty Start Date End Date Gonzales Brennan MD [address] [place] [address] PCP - General Internal Medicine 04/27/18 documented as of this encounter
--- OUTSIDE RECORDS SUMMARY | 2024-08-11 17:14 | XMS_ITS | Encounter Summary ---
Author Organization [employer] Address [address] [place] [address] 7t [place] [address] Care Team Providers Care Account Strategist Name Role Phone Gonzales Brennan MD Primary Care Provider [phone] Encounter Details Date Type Department Care Team ([facility] Contact Info) Description 08/22/2022 Orders Only [facility] MED & PEDS [address] [place], [place] [phone] Cinthia Rodas LPN Social History Tobacco Use [...] Upcoming Encounters Date Type Department Care Team ([facility] Contact Info) Description 08/30/2024 8:00 AM EDT Office Visit [facility] ADULT DENTAL [address] [place] [address] Diaz Merida, CEDRICK [address] [place], [place] [phone] 09/14/2024 9:00 AM EDT Clinical Support [facility] MED & PEDS [address] [place] [address] Marisol Thomas, LEVI [address] [place] [address] 10/17/2024 1:45 PM EDT Office Visit [facility] MED & PEDS [address] [place] [address] Gonzales Brennan MD [address] [place] [address] documented as of this encounter Visit Diagnoses Not on filedocumented in this encounter Additional Health Concerns Assessment Noted Time PHQ-9 Depression Total Score: 0 07/11/19 23 3:46 PM EDT documented as of this encounter Care Teams Account Strategist Relationship Specialty Start Date End Date Gonzales Brennan MD [address] [place] [address] PCP - General Internal Medicine 04/27/18 documented as of this encounter
--- OUTSIDE RECORDS SUMMARY | 2024-08-11 17:14 | XMS_ITS | Clinical Summary ---
Author Organization [employer] Address [address] [place] [address] 7t [place] [address] Care Team Providers Care Director Systems Name Role Phone Gonzales Brennan MD Primary Care Provider [phone]- [phone] Allergies Active Allergy Reactions Criticality Noted Date [...] and/or chew. 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 30 tablet 11 024 2024 Active Stimulant Laxative 8.6-50 MG tabletIndications :Drug induced constipation TAKE ONE TABLET EVERY NIGHT AT BEDTIME NEEDED FOR CONSTIPATION 30 tablet 3 024 Active lisinopril-hydroC HLOROthiazide 10-12.5 MG tablet TAKE ONE TABLET EVERY MORNING 60 tablet 5 024 Active hydrOXYzine HCl (Atarax) 50 MG tablet TAKE ONE TABLET every night at bedtime 30 tablet 11 024 Active Sodium Fluoride (Clinpro 5000) 1.1 % pasteIndications: Dental caries [place] teeth for 2 minutes, morning and night. [...] MG EC tabletIndications :Essential hypertension,Athe rosclerosis of prairie band coronary artery of prairie band heart without angina pectoris TAKE ONE TABLET EVERY NIGHT AT BEDTIME 30 tablet 025 Active oxyCODONE (Roxicodone) 5 MG immediate [...] times daily. 30 tablet 3 025 Active gabapentin (Neurontin) 600 MG tabletIndications :Type 2 diabetes mellitus with hyperglycemia, without long-term current use of insulin (CMS/HCC) TAKE ONE TABLET THREE TIMES DAILY IN THE MORNING, EVENING AND BEDTIME 90 tablet 3 025 Active glipiZIDE XL (Glucotrol XL) 5 MG 24 hr tabletIndications :Type 2 diabetes mellitus with diabetic polyneuropathy (CMS/HCC) TAKE ONE TABLET EVERY MORNING WITH BREAKFAST 30 tablet 11 025 Active glipiZIDE XL (Glucotrol XL) 5 MG 24 hr tabletIndications :Type 2 diabetes mellitus with diabetic polyneuropathy (CMS/HCC) TAKE ONE TABLET BY MOUTH EVERY MORNING WITH BREAKFAST 30 tablet 11 024 2024 Discontinued Active Problems Problem Noted Date Diagnosed Date Long-term current use of opiate analgesic 2024 Spinal stenosis, cervical region 04/04/2024 Degenerative disc disease, cervical 04/04/2024 COPD (chronic obstructive pulmonary disease) 10/202203/03/2023 GERD (gastroesophageal reflux disease) 3 03/03/2023 Adrenal mass 03/09/2020 Atherosclerosis of prairie band co ronary artery of prairie band heart without angina pectoris 07/26/2018 Gastrocnemius tendon rupture 07/26/2018 Bilateral recurrent inguinal hernia 02/12/2015 Controlled type 2 diabetes with neuropathy 05/27 Headache 05/27/2011 Tobacco dependence syndrome 05/27/2011 Essential hypertension 12/20/2010 Depressive disorder 11/20/2010 Anxiety state 04/05/2010 Encounters Date Type Department Care Team Description 08/11/2024 Refill [facility] MED & PEDS [address] [place] [address] Gonzales Brennan MD 08/08/2024 8:00 AM EDT Office Visit [facility] ADULT DENTAL [address] [place] [address] Diaz Merida DMD Secondary dental caries associated with failed or defective dental samaritan (Primary Dx); Full coverage crown needed for root canal-treated tooth; Full coverage crown needed for tooth at risk for fracture 08/08/2024 Travel 08/05/2024 Telephone [facility] [address] [place] [address] Gonzales Brennan MD Appointment Request 07/13/2024 Refill [facility] [address] [place] [address] Gonzales Brennan MD Type 2 diabetes mellitus with diabetic polyneuropathy ([facility]) 07/10/2024 Refill [facility] [address] [place] [address] Gonzales Brennan MD Type 2 diabetes mellitus with hyperglycemia, without long-term current use of insulin ([facility]) 07/06/2024 1:00 PM EDT Office Visit [facility] ADULT DENTAL [address] [place] [address] Diaz Merida DMD Dental caries (Primary Dx); Necrosis of dental pulp 06/29/2024 9:00 AM EST Clinical Support [facility] [address] [place] [address] Marisol Thomas, LEVI Long-term current use of opiate analgesic 06/29/2024 Refill [facility] [address] [place] [address] Marisol Thomas, LEVI Back pain, unspecified back location, unspecified back pain laterality, unspecified chronicity; Chronic midline low back pain without sciatica 06/29/2024 Travel 06/17/2024 Telephone [facility] [address] [place] [address] Gonzales Brennan MD Prior Authorization 06/15/2024 Refill [facility] MED[facility]INE [address] [place] [address] Gonzales Brennan MD Essential hypertension; Atherosclerosis of prairie band coronary artery of prairie band heart without angina pectoris 06/10/2024 Refill [facility] [address] [place] [address] Gonzales Brennan MD Anxiety state 05/20/2024 Refill [facility] [address] [place] [address] Gonzales Brennan MD Back pain, unspecified back location, unspecified back pain laterality, unspecified chronicity; Chronic midline low back pain without sciatica from Last 3 Months Immunizations Name Administration [...] your housing situation today? I have paolo galindo 02/09/[address] you li [...] Pressure 100/60 08/08/2024 8:09 AM EDT Pulse 60 03/08/2024 1:00 PM EST Temperature [...] Description 08/30/2024 8:00 AM EDT Office Visit [facility] ADULT DENTAL [address] [place] [address] Diaz Merida DMD [address] [place] [address] 09/14/2024 9:00 AM EDT Clinical Support [facility] MED [facility] PED[facility] [address] [place] [address] Marisol Thomas, LEVI [address] [place] [address] 10/17/2024 1:45 PM EDT Office Visit [facility] [address] [place] [address] Gonzales Brennan MD [address] [place] [address] Health Maintenance Due Date Last Done Comments CT Colonography 1954 FIT DNA/Cologuard 1955 FIT 1954 FOBT 1955 Sigmoidoscopy 1954 Diabetes: Foot Exam 1964 Alcohol/Substance Use Screening 1966 Lung Cancer Screening 2004 RSV Patients and [...] 02/25/2025 02/26/2024, 05/28, 02/19/2021, Additional history exists Dental X-Ray: Bitewings 03/30/2025 03/29/2024, 05/01 Tobacco Screening 08/08/2025 08/08/2024 Colonoscopy 02/06/2026 02/06/2023 Colorectal Cancer Screening 02/06/2026 [...] Procedure Name Priority Date/Time Associated Diagnosis Comments CASE PRESENTATION, DETAILED AND EXTENSIVE TREATMENT PLANNING Routine 08/08/2024 8:00 AM EDT Secondary dental caries associated with failed or defective dental samaritan Full coverage crown needed for root canal-treated tooth Full coverage crown needed for tooth at risk for fracture 21 CORE BUILDUP, INCL ANY PINS WHEN REQ Routine 08/08/2024 8:00 AM EDT Full coverage crown needed for root canal-treated tooth 20,21 CROWN PREP Routine 08/08/2024 8:00 AM EDT Secondary dental caries associated with failed or defective dental samaritan Full coverage crown needed for root canal-treated tooth Full coverage crown needed for tooth at risk for fracture CASE PRESENTATION, DETAILED AND EXTENSIVE TREATMENT PLANNING Routine 07/06/2024 1:00 PM EDT Dental caries Necrosis of dental pulp 21 ENDODONTIC THERAPY, PREMOLAR TOOTH Routine 07/06/2024 1:00 PM EDT Dental caries Necrosis of dental pulp POCT LUZMA-14 URINE DRUG SCREEN Routine 06/29/2024 [...] Unknown 06/29/2024 9:04 AM EST Narrative Marisol hTomas RN - 06/29/2024 9:04 AM EST Lot# [id number] Exp: 12-14-25 us Gonzales Brennan MD POINT OF CARE TEST ENTER/ED IT ORDERABLES Final Result * Referral to Neurosurgery (06/06/2024) us Melani Joyce MD OUTPATIENT REFERRAL [facility] [place] Final Result * (ABNORMAL) Albumin, Random Urine W/Creatinine (02/26/2024 2:00 PM EDT) Creatinine, Urine 122.05 mg/dL [facility] Microalbumin Urine 1,421.0 mg/L [facility] Microalbum Creatinine Ratio Ur 1,164.2(H ) <30 ug/mg cr [facility] Comment:Albumin/Creatinine R atio Reference Ranges: Normal: < 30 ug/mg creatinine Microalbuminuria: 30 - 300 ug/mg creatinineClinical Albuminuria: > 300 ug/mg creatinine Urine (Urine, Random) 02/26/2024 2:00 PM EDT 02/26/2024 5:55 PM EDT us Gonzales Brennan MD LAB URINE ORDERABLES Final Result Performing Organization Address City/State/[facility] Co de Phone Number [facility] [address] [place] [phone] * (ABNORMAL) Lipid Panel, Standard (02/26/2024 1:58 PM EDT) Triglycerides 253(H) <150 mg/dL [facility] Comment:Desirable Triglyceri de: less than 150 mg/dLBorderline High Triglyceride 150-199 mg/dLHigh Triglyceride: 200-499 mg/dLVery High Triglyceride: greater than or equal to 5OO mg/dL Cholesterol 137 <200 mg/dL [facility] Comment:Desirable Cholestero l: less than 200 mg/dLBorderline High Cholesterol: 200-239 mg/dLHigh Cholesterol: greater than 239 mg/dL LDL Cholesterol Calculated 50 <100 mg/dL [facility] Comment:Desirable LDL: less than 100 mg/dLNear Optimal/Above Optimal LDL: 110- 129 mg/dLBorderline High LDL: 130-159 mg/dLHigh LDL: 160-189 mg/dLVery High LDL: greater than or equal to 190 mg/dL HDL Cholesterol 37(L) >40 mg/dL [facility] Comment:Desirable HDL: great er than 40 mg/dL Note: This HDL assay may give artificially low results in patients with liver disease. Blood Venous blood specimen / Unknown 02/26/2024 1:58 PM EDT 02/26/2024 5:52 PM EDT Gonzales Brennan MD LAB BLOOD ORDERABLES Final Result [facility] [address] [place] [phone] * (ABNORMAL) POCT HGB A1C (11/23/2023 11:36 AM EDT) Hemoglobin A1C 6.1(A) 4.0 - 6.0 % QC Media Lot # [id number] Lot# Expiration Date [id number] Blood 11/23/2023 11:3 6 AM EDT Gonzales Brennan MD POINT OF CARE TEST ENTER/ED IT ORDERABLES Final Result * Colonoscopy (02/06/2023) Anatomical Region Laterality Modality Endoscopy Narrative 02/06/2023 3 polyps Gonzales Brennan MD ENDOSCOPY PROCEDURE ORDERAB LES Final Result * HEPATITIS C AB W/REFL TO HCV RNA, QN, PCR (06/10/2021 11:50 AM EST) HEPATITIS C ANTIBODY NON-REACT ALEXX NON-REACT [facility] INDEX 0.23 <1.00 [facility] Comment: ?? HCV antibody was non-reactive. There is no laboratory ?? evidence of HCV infection. ?? In most cases, no further action is required. However, if recent HCV exposure is suspected, a test for HCV RNA (test code 64212) is suggested. ?? For additional information please refer to http://education.RECOM[employer].COM/faq/ZGC42r5 (This link is being provided for informational/ educational purposes only.) ?? 06/10/2021 11:5 0 AM EST us Gonzales Brennan MD HISTORICAL/NON ORDERABLE MED PHELPS Final Result [place] [phone] from Last 3 Months or Most Recently Relevant to Health Maintenance Insurance [employer] PPO HSN FULL DENTAL - HSN FULL (MEDICAID) * Guarantor: Sean Hinkle Account Type Relation to Patient Date of Phone Billing Address Personal/Family Self [address] [phone] Care Teams Director Systems Relationship Specialty Start Date End Date Gonzales Brennan MD [address] [place] [phone] PCP - General Internal Medicine 04/27/18
--- OUTSIDE RECORDS SUMMARY | 2024-08-11 17:14 | XMS_ITS | Encounter Summary ---
Author Organization [employer] Address [address] [facility] 7t [place] [address] Care Team Providers Care Lathe Set Up Person Name Role Phone Gonzales Brennan MD Primary Care Provider [phone] Encounter Details Date Type Department Care Team (Latest Contact Info) Description 08/08/2024 Travel Social History Tobacco Use Types Packs/Day [...] Description 08/30/2024 8:00 AM EDT Office Visit [facility] ADULT DENTAL [address] [place] [address] Diaz Merida, CEDRICK [address] [place] [address] 09/14/2024 9:00 AM EDT Clinical Support [facility] MED & PEDS [address] [place] [address] Marisol Thomas RN [address] [place] [address] 10/17/2024 1:45 PM EDT Office Visit [facility] MED & PEDS [address] [place] [address] Gonzales Brennan MD [address] [place] [address] documented as of this encounter Visit Diagnoses Not on filedocumented in this encounter Additional Health Concerns Assessment Noted Time PHQ-9 Depression Total Score: 0 07/11/19 23 3:46 PM EDT documented as of this encounter Care Teams Lathe Set Up Person Relationship Specialty Start Date End Date Gonzales Brennan MD [address] [place] [address] PCP - General Internal Medicine 04/27/18 documented as of this encounter
--- OUTSIDE RECORDS SUMMARY | 2024-08-11 17:14 | XMS_ITS | Encounter Summary ---
Author Organization [employer] Address [address] [facility] 7t [place] [address] Care Team Providers Care Tree And Shrub Worker Name Role Phone Gonzales Brennan MD Primary Care Provider [phone] Encounter Details Date Type Department Care Team ([facility] Contact Info) Description 02/24/2024 Orders Only [facility] [address] [place], [place] [phone] Gonzales Brennan MD [address] [place], [place] [phone] Controlled type 2 diabetes with neuropathy (CMS/HCC) [...] Description 08/30/2024 8:00 AM EDT Office Visit [facility] ADULT D[facility]AL [address] [place] [address] Diaz Merida DMD [address] [place] [address] 09/14/2024 9:00 AM EDT Clinical Support [facility] MED & PEDS [address] [place] [address] Marisol Thomas RN [address] [place] [address] 10/17/2024 1:45 PM EDT Office Visit [facility] MED & PEDS [address] [place] [address] Gonzales Brennan MD [address] [place] [address] documented as of this encounter Procedures Procedure Name Priority Date/Time Associated Diagnosis Comments ALBUMIN, RANDOM URINE W/CREATININE Routine 02/26/2024 2:00 PM EDT Controlled type 2 diabetes with neuropathy (CMS/HCC) documented in this encounter Results * (ABNORMAL) Albumin, Random Urine W/Creatinine (02/26/2024 2:00 PM EDT) Creatinine, Urine 122.05 mg/dL [facility] Microalbumin Urine 1,421.0 mg/L [facility] Microalbum Creatinine Ratio Ur 1,164.2(H ) <30 ug/mg cr [facility] Comment:Albumin/Creatinine R atio Reference Ranges: Normal: < 30 ug/mg creatinine Microalbuminuria: 30 - 300 ug/mg creatinineClinical Albuminuria: > 300 ug/mg creatinine Urine (Urine, Random) 02/26/2024 2:00 PM EDT 02/26/2024 5:55 PM EDT us Gonzales Brennan MD LAB URINE ORDERABLES Final Result [facility] [address] [place] [phone] [phone] documented in this encounter Visit Diagnoses Diagnosis Controlled type 2 diabetes with neuropathy (CMS/HCC)- Primary Type II or unspecified type diabetes mellitus with neurological manifestations, not stated as uncontrolled documented in this encounter Additional Health Concerns Assessment Noted Time PHQ-9 Depression Total Score: 0 07/11/19 23 3:46 PM EDT documented as of this encounter Care Teams Tree And Shrub Worker Relationship Specialty Start Date End Date Gonzales Brennan MD [address] [place] [phone] PCP - General Internal Medicine 04/27/18 documented as of this encounter
--- OUTSIDE RECORDS SUMMARY | 2024-08-11 17:14 | XMS_ITS | Encounter Summary ---
Author Organization [employer] Address [address] [place] [address] 7 [place] [address] Care Team Providers Care Family Practice Nurse Practitioner Name Role Phone Gonzales Brennan MD Primary Care Provider [phone] Reason for Referral * Imaging (Routine) - Closed Specialty Diagnoses / Procedures Referred By Contac t Referred To Contact Radiology Diagnoses Neck pain Procedures CT Cervical Spine w/o Contrast Gonzales Brennan MD [address] [place] [address] Phone: tel: fax: [address] Phone: tel: fax: Referral ID Status Reason Start Date Expiration Date Visits Re quested Visits Authorized [id number] Closed 01/27/2024 01/26/2025 1 1 Encounter Details Date Type Department Care Team ([facility] st Contact Info) Description 01/27/2024 Orders Only [facility] PEDS [address] [place] [address] Gonzales Brennan MD [address] [place] [address] Neck pain (Primary Dx) Social History Tobacco [...] Upcoming Encounters Date Type Department Care Team ([facility] st Contact Info) Description 08/30/2024 8:00 AM EDT Office Visit [facility] ADULT DENTAL [address] [place] [address] Diaz Merida DMD [address] [place] [address] 09/14/2024 9:00 AM EDT Clinical Support [facility] MED & PEDS [address] [place] [address] Marisol Thomas RN [address] [place], [place] [phone] 10/17/2024 1:45 PM EDT Office Visit [facility] MED & PEDS [address] [place] [address] Gonzales Brennan MD [address] [place], [place] [phone] documented as of this encounter Procedures Procedure Name Priority Date/Time Associated Diagnosis Comments CT CERVICAL SPINE WO CONTRAST Routine 02/02/2024 8:59 AM EDT Neck pain documented in this encounter Results * CT Cervical Spine w/o Contrast (02/02/2024 8:59 AM EDT) Anatomical Region Laterality Modality Spine, C-spine Computed Tomogra phy 02/02/2024 8:59 AM EDT Narrative 04/04/2024 11:41 AM EST ? [facility] ?[address] ?[place] [address] ? CT Scan Report ? Signed ? Patient: Sean Hinkle ?MR#: [id number] ?? 2 ? : 1955 ?Acct:[id number] ? Age/Sex: 68 / M ?ADM Date: 10/08/24 ? Loc: HO.CT ? Attending Dr: Gonzales Brennan MD ? Ordering Physician: Gonzales Brennan MD ?? Date of Service: 02/02/24 ?? Procedure(s): CT cervical spine wo IV con ?? Accession Number(s): [id number] ? cc: Gonzales Brennan MD ? EXAMINATION: [...] OV> ?04/04/24 1138 ? DD/ ? TD/TT: 02/02/24913 ? Senior Interactive Producer: ? Procedure Note Sweetie Jensen - 04/04/[address] [place] [address] [address] Scan Report Signed Patient: Jewell Hinkle#: [id number] 2 : 5Acct:[id number] Age/Sex: 68 / MADM Date: 02/02/24 Loc: HO.CT Attending Dr: Gonzales Brennan MD Ordering Physician: Gonzales Brennan MD Date of Service: 02/02/24 Procedure(s): CT cervical spine wo IV con Accession Number(s): [id number] cc: Gonzales Brennan MD EXAMINATION: CT CERVICAL [...] Trent MD in OV> 04/04/24 1138 DD/ TD/TT: 02/02/24913 Senior Interactive Producer: us Gonzales Brennan MD IMG CT PROCEDURES Final Res ult documented in this encounter Visit Diagnoses Diagnosis Neck pain- Primary Cervicalgia documented in this encounter Additional Health Concerns Assessment Noted Time PHQ-9 Depression Total Score: 0 07/11/19 23 3:46 PM EDT documented as of this encounter Care Teams Family Practice Nurse Practitioner Relationship Specialty Start Date End Date Gonzales Brennan MD [address] [place] [phone] PCP - General Internal Medicine 04/27/18 documented as of this encounter
--- OUTSIDE RECORDS SUMMARY | 2024-08-11 17:14 | XMS_ITS | Encounter Summary ---
Author Organization [employer] Address [address] [facility] 7t [place] [address] Care Team Providers Care Plumbing Foreman Name Role Phone Gonzales Brennan MD Primary Care Provider [phone] Reason for Visit * Reason Onset Date Comments Hospital Follow-up 08/14/2023 Encounter Details Date Type Department Care Team ([facility] st Contact Info) Description 08/14/2023 Telephone [facility] [address] [place] [address] Gonzales Brennan MD [address] [place] [address] Hospital Follow-up Social History Tobacco Use Types [...] from pt requesting a HDF appt. Hospital: [facility] Date of admission: 07/29 Discharge date: 08/10 Diagnosed: Pneumonia documented in this encounter Plan of Treatment Upcoming Encounters Date Type Department Care Team (Late st Contact Info) Description 08/30/2024 8:00 AM EDT Office Visit [facility] ADULT D[facility] [address] [place] [address] Diaz Merida DMD [address] [place] [address] 09/14/2024 9:00 AM EDT Clinical Support [facility] MED & PEDS [address] [place] [address] Marisol Thomas RN [address] [place] [address] 10/17/2024 1:45 PM EDT Office Visit [facility] MED [facility] PEDS [address] [place] [address] Gonzales Brennan MD [address] [place] [address] documented as of this encounter Visit Diagnoses Not on filedocumented in this encounter Additional Health Concerns Assessment Noted Time PHQ-9 Depression Total Score: 0 07/11/19 23 3:46 PM EDT documented as of this encounter Care Teams Plumbing Foreman Relationship Specialty Start Date End Date Gonzales Brennan MD [address] [place] [phone] PCP - General Internal Medicine 04/27/18 documented as of this encounter
--- OUTSIDE RECORDS SUMMARY | 2024-08-11 17:14 | XMS_ITS | Encounter Summary ---
Author Organization [employer] Address [address] [place] [address] 7t [place] [address] Care Team Providers Care Supervisor Endless Track Vehicle Name Role Phone Gonzales Brennan MD Primary Care Provider [phone] Reason for Visit * Reason Comments Med Refill Encounter Details Date Type Department Care Team ([facility] Contact Info) Description 05/19/2022 Refill [facility] [address] [place], [place] [phone] Gonzales Brennan MD [address] [place], [place] [phone] Chronic midline low back pain without sciatica [...] Upcoming Encounters Date Type Department Care Team ([facility] Contact Info) Description 08/30/2024 8:00 AM EDT Office Visit [facility] ADULT DENT[facility] [address] [place], [place] [phone] Diaz Merida DMD [address] [place], [place] [phone] 09/14/2024 9:00 AM EDT Clinical Support [facility] MED & PEDS [address] [place], [place] [phone] Marisol Thomas, LEVI [address] [place] [address] 10/17/2024 1:45 PM EDT Office Visit [facility]EDS [address] [place] [address] Gonzales Brennan MD [address] [place] [address] documented as of this encounter Visit Diagnoses Diagnosis Chronic midline low back pain without sciatica documented in this encounter Care Teams Supervisor Endless Track Vehicle Relationship Specialty Start Date End Date Gonzales Brennan MD [address] [place] [address] PCP - General Internal Medicine 04/27/18 documented as of this encounter
--- OUTSIDE RECORDS SUMMARY | 2024-08-11 17:14 | XMS_ITS | Encounter Summary ---
Author Organization [employer] Address [address] [facility] 7t [place] [address] Care Team Providers Care Life Enrichment Assistant Name Role Phone Gonzales Brennan MD Primary Care Provider [phone] Encounter Details Date Type Department Care Team ([facility] Contact Info) Description 01/04/2024 Orders Only [facility] MED & PEDS [address] [place], [place] [phone] Gonzales Brennan MD [address] [place], [place] [phone] Essential hypertension (Primary Dx) Social History Tobacco [...] Description 08/30/2024 8:00 AM EDT Office Visit [facility] ADULT DENTAL [address] [place] [address] Diaz Merida, CEDRICK [address] [place] [address] 09/14/2024 9:00 AM EDT Clinical Support [facility] MED & PEDS [address] [place] [address] Marisol Thomas RN [address] [place] [address] 10/17/2024 1:45 PM EDT Office Visit [facility] MED & PEDS [address] [place] [address] Gonzales Brennan MD [address] [place] [address] documented as of this encounter Procedures Procedure Name Priority Date/Time Associated Diagnosis Comments URINALYSIS, COMPLETE Routine 01/21/2024 10:50 AM EDT Essential hypertension BASIC METABOLIC PANEL Routine 01/21/2024 10:44 AM EDT Essential hypertension documented in this encounter Results * (ABNORMAL) Urinalysis Complete (01/21/2024 10:50 AM EDT) Color Urine Yellow [facility] Appearance Urine Clear [facility] PH 5.5 5.0 - 9.0 [facility] Glucose Urine UA Negative Negative mg/dL [facility] Urine Blood Negative Negative [facility] Specific Burt - Urine 1.025 1.005 - 1.025 [facility] Urine Protein 300 (3+)(A) Neg-Trace mg/dL [facility] Urine Ketones Negative Negative mg/dL [facility] Nitrite Urine Negative Negative [facility] Leukocyte Esterase Urine Negative Negative [facility] RBC Urine 0-2 0 - 2 /HPF [facility] Urine WBC 0-5 0 - 5 /HPF [facility] Urine Squamous Epithelial Cell 0-2 0 - 2 /HPF [facility] Urine Bacteria None Seen None Seen [facility] Hyaline Casts, Urine 0-2 0 - 2 /LPF [facility] Urine (Urine, Random) 01/21/2024 10:50 AM EDT 01/21/2024 2:10 PM EDT us Gonzales Brennan MD LAB URINE ORDERABLES Final Result [facility] [address] [place], [place] [phone] * (ABNORMAL) Basic Metabolic Panel (01/21/2024 10:44 AM EDT) Sodium 142 135 - 145 mmol/L [facility] Potassium 4.3 3.3 - 5.1 mmol/L [facility] Chloride 107 96 - 108 mmol/L [facility] Carbon Dioxide 27 22 - 29 mmol/L [facility] Anion Gap 12 12 - 20 [facility] Urea Nitrogen (BUN) 18(H) 9 - 16 mg/dL [facility] Creatinine, Serum 1.03 0.5 - 1.4 mg/dL [facility] Estimated Glomerular Filt Rate >60 [facility] Comment:NOTE: For -Am erican individuals, multiply the result by 1.210.Chronic Kidney Disease: Estimated GFR < 60 mL/min/1.87e4Jhmark Kidney Disease: Estimated GFR < 15 mL/min/1.73m2 Glucose 105 60 - 115 mg/dL [facility] Calcium 9.5 8.4 - 10.2 mg/dL [facility] Blood Venous blood specimen / Unknown 01/21/2024 10:44 AM EDT 01/21/2024 2:13 PM EDT Gonzales Brennan MD LAB BLOOD ORDERABLES Final Result [facility] [address] [place] [address] [phone] documented in this encounter Visit Diagnoses Diagnosis Essential hypertension- Primary Unspecified essential hypertension documented in this encounter Additional Health Concerns Assessment Noted Time PHQ-9 Depression Total Score: 0 07/11/19 23 3:46 PM EDT documented as of this encounter Care Teams Life Enrichment Assistant Relationship Specialty Start Date End Date Gonzales Brennan MD [address] [place] [phone] PCP - General Internal Medicine 04/27/18 documented as of this encounter
--- OUTSIDE RECORDS SUMMARY | 2024-08-11 17:14 | XMS_ITS | Encounter Summary ---
Author Organization [employer] Address [address] [facility] 7 [place] [address] Care Team Providers Care Chain Carrier Name Role Phone Gonzales Brennan MD Primary Care Provider [phone] Reason for Visit * Reason Onset Date Comments Referral 05/04/2024 Encounter Details Date Type Department Care Team ([facility] Contact Info) Description 05/04/2024 Telephone [facility] MED[facility] [address] [place] [address] Gonzales Brennan MD [address] [place] [address] Referral Social History Tobacco Use Types Packs/Day [...] PM EST Most recent notes faxed to [phone]. * Telephone Encounter - Pia Philip - 05/04/2024 3:12 PM EST Tc from Laura [place] [facility] stating referral was received with CT scan but no office notes, Laura stated she needs notes on referral to be faxed over to them. [phone] documented in this encounter Plan of Treatment Upcoming Encounters Date Type Department Care Team (Late st Contact Info) Description 08/30/2024 8:00 AM EDT Office Visit [facility] ADULT DENTAL [address] [place] [address] Diaz Merida DMD [address] [place] [address] 09/14/2024 9:00 AM EDT Clinical Support [facility] MED & PEDS [address] [place] [address] Marisol Thomas RN [address] [place] [address] 10/17/2024 1:45 PM EDT Office Visit [facility] MED & PEDS [address] [place] [address] Gonzales Brennan MD [address] [place] [address] documented as of this encounter Visit Diagnoses Not on filedocumented in this encounter Additional Health Concerns Assessment Noted Time PHQ-9 Depression Total Score: 0 07/11/19 23 3:46 PM EDT documented as of this encounter Care Teams Chain Carrier Relationship Specialty Start Date End Date Gonzales Brennan MD [address] [place] [address] PCP - General Internal Medicine 04/27/18 documented as of this encounter
--- OUTSIDE RECORDS SUMMARY | 2024-08-11 17:14 | XMS_ITS | Encounter Summary ---
Author Organization [employer] Address [address] [facility] 7t [place] [address] Care Team Providers Care Field Gauger Name Role Phone Gonzales Brennan MD Primary Care Provider [phone] Reason for Visit * Reason Onset Date Comments Referral 02/23/2024 Encounter Details Date Type Department Care Team ([facility] Contact Info) Description 02/23/2024 Telephone [facility] MED[facility]INE [address] [place] [address] Gonzales Brennan MD [address] [place] [address] Referral Social History Tobacco Use Types Packs/Day [...] 12:37 PM) CC looked up patient on [facility] portal. Patient CT scan pictures are visible, but unable to save and scan on patient's chart. CC will send a request to [facility] to send any CT scans reports [...] pt. States he had it done at [facility]. I also informed pt. That PCP ordered the lab work that Roseanna REINOSO requested and pt. States he will go get that done today. * Telephone Encounter - Gonzales Brennan MD - 02/24/2024 9:07 PM EDT The order was placed. Please inform us if having further questions. * Telephone Encounter - Pia Philip - 02/23/2024 12:37 PM EDT Tc from Roseanna (CRUSHER AND BLENDER OPERATOR) requesting PCP to assist pt with referral for lab work Urine albumin to creatinine ratio (ACR) . Roseanna (KEMAR) [facility] [phone] documented in this encounter Plan of Treatment Upcoming Encounters Date Type Department Care Team ([facility] st Contact Info) Description 08/30/2024 8:00 AM EDT Office Visit [facility] ADULT DENTAL [address] [place] [address] Diaz Merida, CEDRICK [address] [place] [address] 09/14/2024 9:00 AM EDT Clinical Support [facility] MED & PEDS [address] [place] [address] Marisol Thomas, LEVI [address] [place] [address] 10/17/2024 1:45 PM EDT Office Visit [facility] MED & PEDS [address] [place] [address] Gonzales Brennan MD [address] [place] [address] documented as of this encounter Visit Diagnoses Not on filedocumented in this encounter Additional Health Concerns Assessment Noted Time PHQ-9 Depression Total Score: 0 07/11/19 23 3:46 PM EDT documented as of this encounter Care Teams Field Gauger Relationship Specialty Start Date End Date Gonzales Brennan MD [address] [place] [address] PCP - General Internal Medicine 04/27/18 documented as of this encounter
[2024-08-11 17:57] LABS: Anion Gap 15 (12-20); Blood Urea Nitrogen 19 mg/dL (9-16); Calcium 9.6 mg/dL (8.4-10.2); Carbon Dioxide 27 mmol/L (22-29); Chloride 103 mmol/L (96-108); Estimated Glomerular Filt Rate > 60; Glucose Random 143 mg/dL (60-115); Potassium 3.9 mmol/L (3.3-5.1); Sodium 141 mmol/L (135-145)
== END 2024-08-11 14:11 | disposition home or self-care (01) ==
LOC: HO.CHCLDS 14:10
PROVIDERS: Visit Provider Internal Medicine Cardiovascular Disease
DX: R07.9 Chest pain, unspecified (principal)
CPT/HCPCS: 36415; 80048

== ENCOUNTER 2024-09-01 10:47 | Outpatient (AMB) | payer MEDICARE, SELFPAY ==
[2024-09-01 10:52] VITALS: BP 128/68; PULSE 67; O2SAT 94; BMI 36.9
--- NOTE | 2024-09-01 10:52 | A.OFFVIS_ITS ---
Vital Signs 09/01/24 10:52 Height 5 ft 7 in Weight 235 lb 14.314 oz BMI 36.9 BP 128/68 Blood Pressure Location Lt brachial Position Sitting Pulse 67 Pulse Oximetry (%) 94 Intake Visit Reasons: follow up CTA Intake Note: Follow-up after CTA c/o palpitations and sob Lighting Engineer Required: No Allergies Penicillins [PENICILLINS] Allergy (Severe, Verified 07/01/24 10:17) THROAT SWELLING penicillin V Allergy (Unknown, Verified 07/01/24 10:17) anaphylaxis HPI Comments Details: Sean comes for follow-up. Recent coronary CTA shows nonobstructive CAD. Shows some mediastinal lymph nodes could be reactive. Needs follow-up with your office for repeat CT scan. He continues to have exertional shortness of breath. Today does not complain of exertional chest pain. Unfortunately continues to smoke. Scheduled to undergo neck surgery for cervical spine issues under general anesthesia. Taking all his medications. [facility] Medical History (Updated 09/01/24 @ 11:06 by Jonah Umanzor MD) CAD (coronary artery disease) Dysphagia Tubular adenoma Tubular adenoma IBS (irritable bowel syndrome) Personal history of nicotine dependence Diabetes mellitus type 2, controlled Tubular adenoma of colon (~2019) GERD (gastroesophageal reflux disease) H/O benign carcinoid tumor Cough Back pain Anxiety and depression Lung nodule BPH (benign prostatic hyperplasia) Hyperthyroidism Left adrenal mass HLD (hyperlipidemia) Chest pain Obesity HTN (hypertension) COPD (chronic obstructive pulmonary disease) Surgical History History of total adrenalectomy History of colonoscopy History of lithotripsy (~2014) History of bilateral inguinal hernia repair (~2014) History of esophagogastroduodenoscopy (EGD) History of prostate surgery (~2017) History of cholecystectomy (~2019) History of cardiac cath (~2010) Family History Father Cancer Mother Lung cancer Brother Heart attack Social History Household Members Other:: Pt anxious and unable to respond at this time Do you presently have visiting nurse or other home services: Yes ([place]) Alcohol intake: never Comment: Patient refusing all alarms Patient Tobacco Use Status: Former Tobacco user Tobacco use type: Cigarette Cigarette Packs Per Day: 0.5 Cigarettes Per Day: 10.0 Years Smoked: 50 Substance Use Type: Marijuana Advance Directives Date on File: 02/09/20 service: No Review of Systems Const Denies chills, Denies fatigue, Denies fever(s), Denies frequent falls, Denies weakness, Denies weight gain and Denies weight loss ENT Denies dizziness Card Denies chest pain, Denies leg edema, Denies lightheadedness, Denies palpitations, Denies dyspnea, Denies dyspnea on exertion, Denies orthopnea and Denies other (loss of consciousness) Resp Denies cough, Denies dyspnea and Denies dyspnea on exertion GI Denies hematochezia and Denies change in stool character Musc Denies abnormal gait, Denies muscle weakness, Denies numbness, Denies radiating pain into limb and Denies tingling Neuro Denies abnormal gait, Denies dizziness, Denies frequent falls, Denies numbness, Denies tingling and Denies weakness Endo Denies fatigue and Denies palpitations Physical Exam Vital Signs: Last Vital Signs Pulse 67 09/01/24 10:52 BP 128/68 09/01/24 10:52 Pulse Ox 94 09/01/24 10:52 BMI result Body Mass Index 36.9 Const General: no acute distress and alert Nutritional Appearance: not obese Orientation/consciousness: Other orientation findings ( oriented) HEENT Head: Yes atraumatic Eyes General: appearance normal, both eyes and all related structures Sclerae: sclerae normal EOM: EOMs intact bilaterally Neck Neck: Yes supple Lymphatic: no lymphadenopathy noted Resp Effort & Inspection: normal respiratory effort Auscultation: clear to auscultation bilaterally and diminished lung sounds Cardio Rate: regular rate Rhythm: regular rhythm Heart sounds: no gallops, no murmurs and no rubs Skin General skin exam: other ( warm) Extrem General: No clubbing, No cyanosis and Yes edema (1+ bilateral) Assessment & Plan Assessment & Plan (1) CAD (coronary artery disease): Comment: Denies recent CP Code(s): I25.10 - Atherosclerotic heart disease of [place] coronary artery without angina pectoris Category: Medical Qualifiers: Coronary Disease-Associated Artery/Lesion type: unspecified vessel or lesion type [place] vs. transplanted heart: unspecified whether [place] or transplanted heart Associated angina: unspecified whether angina present Qualified Code(s): I25.10 - Atherosclerotic heart disease of [place] coronary artery without angina pectoris Plan: Nonobstructive CAD, persistent on repeat coronary CTA. His symptoms are not associated with cardiac issues. Most likely associated with pulmonary issues and continued smoking. Possibly also could be related to esophagitis. At this point time no further cardiac workup is indicated. I would continue low-dose aspirin therapy if not contraindicated from GI perspective. However switch to an alternative anti platelet therapy such as Plavix. Continue high-intensity statin therapy with target goal LDL less than 60 mg/dL. Strongly recommend to stop smoking to reduce future cardiovascular as well as pulmonary and cancer risk. Continue aggressive blood pressure control. Continue aggressive diabetes management goal hemoglobin A1c less than 7%. From cardiac perspective his coronary disease has remained nonobstructive for many years despite his continued risk factors. At this point time likelihood of underlying progressive cardiovascular disease is less likely and there is no indication for long- acting nitrate therapy. (2) Preop cardiovascular exam: Code(s): Z01.810 - Encounter for preprocedural cardiovascular examination Category: Medical Plan: Preoperative cardiovascular risk stratification for cervical spine surgery under general anesthesia. From cardiac perspective he is optimized to undergo the procedure with low risk for perioperative cardiovascular morbidity mortality although he may have significant pulmonary comorbidity. At this point time is aspirin can be withheld for surgery 5-7 days prior to the procedure as needed. Continue all other medications in the perioperative. Will follow up in the clinic if need be. Thank you for allowing me to partake in his care. Coding Level of Care Code Est Pt Level 4 (34961) Complex EM visit Add On G2211 Diagnoses Coronary artery disease, unspecified vessel or lesion type, unspecified whether angina present, unspecified whether [place] or transplanted heart I25.10 Coronary Disease-Associated Artery/Lesion type: unspecified vessel or lesion type [place] vs. transplanted heart: unspecified whether [place] or transplanted heart Associated angina: unspecified whether angina present Preop cardiovascular exam Z01.810
--- OUTSIDE RECORDS SUMMARY | 2024-09-01 12:16 | XMS_ITS | Encounter Summary ---
Author Organization [employer] Address [address] [facility] 7t [place] [address] Care Team Providers Care Collateral Analyst Name Role Phone Gonzales Brennan MD Primary Care Provider [phone] Reason for Visit * Reason Comments Med Refill Encounter Details Date Type Department Care Team ([facility] st Contact Info) Description 08/26/2024 Refill [facility] MED & PEDS [address] [place], [place] [phone] Gonzales Brennan MD [address] [place] [address] Back pain, unspecified back location, unspecified back [...] Care Team (Late st Contact Info) Description 09/05/2024 2:00 PM EDT Office Visit [facility] ADULT D[facility] [address] [place] [address] Diaz Meriad DMD [address] [place] [address] 09/14/2024 9:00 AM EDT Clinical Support [facility] [address] [place] [address] Marisol Thomas RN [address] [place] [address] 10/17/2024 1:45 PM EDT Office Visit [facility] [address] [place] [address] Gonzales Brennan MD [address] [place] [address] documented as of this encounter Visit Diagnoses Diagnosis Back pain, unspecified back location, unspecified back pain laterality, unspecified chronicity Chronic midline low back pain without sciatica documented in this encounter Additional Health Concerns Assessment Noted Time PHQ-9 Depression Total Score: 0 07/11/19 23 3:46 PM EDT documented as of this encounter Care Teams Collateral Analyst Relationship Specialty Start Date End Date Gonzales Brennan MD [address] [place] [address] PCP - General Internal Medicine 04/27/18 documented as of this encounter
--- OUTSIDE RECORDS SUMMARY | 2024-09-01 12:16 | XMS_ITS | Clinical Summary ---
Author Organization [employer] Address [address] [place] [address] Care Team Providers Care Fabrication Welder Name Role Phone Unavailable Primary Care Provider Unavailabl e Surgical History Surgery Date Site/Laterality Comments OTHER SURGICAL HISTORY Right PROCEDURE: [place] RESCJ&BRONCHOPLASTY PFRMD TM LOBEC/SGMECTOMY Medical History Medical [...] Pneumococcal Vaccine: 50+ Ye ars (1 of 1 - PCV) 2004 Zoster Vaccines (1 of 2) 2004 COVID-19 Vaccine (1 - 2024-2 5 season) 2023 Influenza Vaccine (Season Ended) [...] Documents on File Type Date Recorded Patient Turning Sander Tender Expl anation Health Care Decision (hx) 08/01/2021 AD CERDA DIRECTIVE Health Care Decision (hx) 08/01/2021 AD CERDA DIRECTIVE
--- OUTSIDE RECORDS SUMMARY | 2024-09-01 12:16 | XMS_ITS | Encounter Summary ---
Author Organization [employer] Address [address] [facility] 7t [place] [address] Care Team Providers Care Sill Worker Name Role Phone Gonzales Brennan MD Primary Care Provider [phone] Encounter Details Date Type Department Care Team ([facility] Contact Info) Description 08/22/2022 Orders Only [facility] MED & PEDS [address] [place] [address] Cinthia Rodas LPN Social History Tobacco Use [...] Upcoming Encounters Date Type Department Care Team ([facility] Contact Info) Description 09/05/2024 2:00 PM EDT Office Visit [facility] ADULT DENTAL [address] [place], [place] [phone] Diaz Merida, CEDRICK [address] [place], [place] [phone] 09/14/2024 9:00 AM EDT Clinical Support [facility] MED & PEDS [address] [place] [address] Marisol Thomas, LEVI [address] [place] [address] 10/17/2024 1:45 PM EDT Office Visit [facility] MED & PEDS [address] [place] [address] Gonzales Brennan MD [address] [place] [address] documented as of this encounter Visit Diagnoses Not on filedocumented in this encounter Additional Health Concerns Assessment Noted Time PHQ-9 Depression Total Score: 0 07/11/19 23 3:46 PM EDT documented as of this encounter Care Teams Sill Worker Relationship Specialty Start Date End Date Gonzales Brennan MD [address] [place] [address] PCP - General Internal Medicine 04/27/18 documented as of this encounter
--- OUTSIDE RECORDS SUMMARY | 2024-09-01 12:16 | XMS_ITS | Clinical Summary ---
Author Organization [employer] Address [address] [place] [address] 7t [place] [address] Care Team Providers Care On Call Name Role Phone Gonzales Brennan MD Primary Care Provider [phone]- [phone] Allergies Active Allergy Reactions Criticality Noted Date [...] TO 4 TIMES DAILY NEEDED abdominal distention 023 Active acetaminophen (Tylenol 8 Hour) 650 MG ER tablet take 1 tablet by oral route every 8 hours as needed swallowing whole with water. Do not break, crush, dissolve and/or chew. as needed 90 tablet 3 Active cholestyramine light (Prevalite) 4 g packet [...] OF BREATH OR FOR WHEEZING 18 g 11 Active nitroglycerin (Nitrostat) 0.4 MG SL tabletIndications :Atherosclerosis of [place] coronary artery of [place] heart without angina pectoris take 1 Tablet by Sublingual route every 5 minutes As needed for Chest pain 90 tablet 3 024 Active glucose blood (FREESTYLE LITE) test strip USE TO TEST BLOOD SUGAR SIX TIMES DAILY 100 each 3 Active isosorbide mononitrate ER (Imdur) 60 MG 24 hr tablet TAKE ONE TABLET EVERY MORNING 30 tablet 11 024 Active atorvastatin (Lipitor) 40 MG tablet TAKE [...] night at bedtime 30 tablet 024 Active Sodium Fluoride (Clinpro 5000) 1.1 % pasteIndications: Dental caries [place] teeth for 2 minutes, morning and night. Spit, do not rinse. Do not eat or drink anything for 30 minutes following use. 339 g 3 024 Active metFORMIN (Glucophage) 1000 MG tablet TAKE ONE TABLET IN THE MORNING AND EVENING 60 tablet 5 024 Active FLUoxetine (PROzac) 40 MG capsuleIndication s:Anxiety state TAKE ONE CAPSULE EVERY MORNING 30 capsule 025 Active Aspirin Adult Low Strength 81 MG EC tabletIndications :Essential hypertension,Athe rosclerosis of [place] coronary artery of [place] heart without angina pectoris TAKE ONE TABLET EVERY NIGHT AT BEDTIME 30 tablet 025 Active baclofen (Lioresal) 10 MG [...] WITH BREAKFAST 30 tablet 11 025 Active tamsulosin (Flomax) 0.4 MG 24 hr capsule TAKE ONE CAPSULE EVERY EVENING 30 capsule 11 025 Active oxyCODONE (Roxicodone) 5 MG immediate release tabletIndications :Back pain, unspecified back location, unspecified back pain laterality, unspecified chronicity,Chroni c midline low back pain without sciatica TAKE ONE TABLET EVERY 8 HOURS NEEDED FOR SEVERE PAIN 42 tablet 025 Active celecoxib (CeleBREX) 200 MG capsule TAKE ONE CAPSULE BY MOUTH EVERY MORNING 10 capsule 025 Active tamsulosin (Flomax) 0.4 MG 24 hr capsule TAKE ONE CAPSULE EVERY EVENING 30 capsule 11 024 2024 Discontinued celecoxib (CeleBREX) 200 MG capsule TAKE ONE CAPSULE EVERY MORNING FOR 10 DAYS 10 capsule 025 2024 Discontinued oxyCODONE (Roxicodone) 5 MG immediate release tabletIndications :Back pain, unspecified back location, unspecified back pain laterality, unspecified chronicity,Chroni c midline low back pain without sciatica Take 1 tablet (5 mg) by mouth every 8 (eight) hours if needed for severe pain. 42 tablet 025 2024 Discontinued Active Problems Problem Noted Date Diagnosed Date Long-term current use of opiate analgesic 2024 Spinal stenosis, cervical region 04/04/2024 Degenerative disc disease, cervical 04/04/2024 COPD (chronic obstructive pulmonary disease) 10/202203/03/2023 GERD (gastroesophageal reflux disease) 3 03/03/2023 Adrenal mass 03/09/2020 Atherosclerosis of [place] co ronary artery of [place] heart without angina pectoris 07/26/2018 Gastrocnemius tendon rupture 07/26/2018 Bilateral recurrent inguinal hernia 02/12/2015 Controlled type 2 diabetes with neuropathy 05/27 Headache 05/27/2011 Tobacco dependence syndrome 05/27/2011 Essential hypertension 12/20/2010 Depressive disorder 11/20/2010 Anxiety state 04/05/2010 Encounters Date Type Department Care Team Description 08/30/2024 8:00 AM EDT Office Visit [facility] ADULT DENTAL [address] [place] [address] Diaz Merida, CEDRICK Full coverage crown needed for tooth at risk for fracture (Primary Dx) 08/26/2024 Refill [facility] MED & PEDS [address] [place] [address] Gonzales Brennan MD Back pain, unspecified back location, unspecified back pain laterality, unspecified chronicity; Chronic midline low back pain without sciatica 08/11/2024 Refill [facility] MED & PEDS [address] [place] [address] Gonzales Brennan MD 08/08/2024 8:00 AM EDT Office Visit [facility] ADULT DENTAL [address] [place] [address] Diaz Merida DMD Secondary dental caries associated with failed or defective dental hinduism (Primary Dx); Full coverage crown needed for root canal-treated tooth; Full coverage crown needed for tooth at risk for fracture 08/08/2024 Travel 08/05/2024 Telephone [facility] MED & PEDS [address] [place] [address] Gonzales Brennan MD Appointment Request 07/13/2024 Refill [facility] MED & PEDS [address] [place] [address] Gonzales Brennan MD Type 2 diabetes mellitus with diabetic polyneuropathy ([facility]) 07/10/2024 Refill [facility] MED & PEDS [address] [place] [address] Gonzales Brennan MD Type 2 diabetes mellitus with hyperglycemia, without long-term current use of insulin ([facility]) 07/06/2024 1:00 PM EDT Office Visit [facility] ADULT DENTAL [address] [place] [address] Diaz Merida DMD Dental caries (Primary Dx); Necrosis of dental pulp 06/29/2024 9:00 AM EST Clinical Support [facility] MED [facility] PEDS [address] [place] [address] Marisol Thomas RN Long-term current use of opiate analgesic 06/29/2024 Refill [facility] MED & PEDS [address] [place] [address] Marisol Thomas RN Back pain, unspecified back location, unspecified back pain laterality, unspecified chronicity; Chronic midline low back pain without sciatica 06/29/2024 Travel 06/17/2024 Telephone [facility] MED & PEDS [address] [place] [address] Gonzales Brennan MD Prior Authorization 06/15/2024 Refill [facility] MEDICINE [address] [place] [address] Gonzales Brennan MD Essential hypertension; Atherosclerosis of [place] coronary artery of [place] heart without angina pectoris 06/10/2024 Refill [facility] MEDICINE [address] [place] [address] Gonzales Brennan MD Anxiety state from Last 3 Months Immunizations Name Administration [...] Description 09/05/2024 2:00 PM EDT Office Visit [facility] ADULT DENTAL [address] [facility] [place] [facility] [place] [address] Diaz Merida, CEDRICK [address] [place] [address] 09/14/2024 9:00 AM EDT Clinical Support [facility] MED & PEDS [address] [place] [address] Marisol Thomas, LEVI [address] [place], [place] [phone] 10/17/2024 1:45 PM EDT Office Visit [facility] MED & PEDS [address] [place] [address] Gonzales Brennan MD [address] [place] [address] Health Maintenance Due Date Last Done Comments [...] X-Ray: Bitewings 03/30/2025 03/29/2024, 05/01 Tobacco Screening 08/30/2025 08/30/2024 Colonoscopy 02/06/2026 02/06/2023 Colorectal Cancer Screening 02/06/2026 [...] PRESENTATION, DETAILED AND EXTENSIVE TREATMENT PLANNING Routine 08/30/2024 8:00 AM EDT Full coverage crown needed for tooth at risk for fracture 22 CROWN - PORCELAIN/CERAMIC Routine 08/30/2024 8:00 AM EDT Full coverage crown needed for tooth at risk for fracture CASE PRESENTATION, DETAILED AND EXTENSIVE TREATMENT PLANNING Routine 08/08/2024 8:00 AM EDT Secondary dental caries associated with failed or defective dental hinduism Full coverage crown needed for root canal-treated tooth Full coverage crown needed for tooth at risk for fracture 21 CORE BUILDUP, INCL ANY PINS WHEN REQ Routine 08/08/2024 8:00 AM EDT Full coverage crown needed for root canal-treated tooth 20,21 CROWN PREP Routine 08/08/2024 8:00 AM EDT Secondary dental caries associated with failed or defective dental hinduism Full coverage crown needed for root canal-treated [...] 3:00 PM EST Dental caries Periodontal disease PERIODIC ORAL EVALUATION - ESTABLISHED PATIENT Routine 03/29/2024 3:00 PM EST [...] RN - 06/29/2024 9:04 AM EST Lot# [id number] Exp: 12-14-25 us Gonzales Brennan MD POINT OF CARE TEST ENTER/ED IT ORDERABLES Final Result * Referral to Neurosurgery (06/06/2024) us Melani Joyce MD OUTPATIENT REFERRAL [facility] Final Result * (ABNORMAL) Albumin, Random Urine W/Creatinine (02/26/2024 2:00 PM EDT) Creatinine, Urine 122.05 mg/dL [facility] Microalbumin Urine 1,421.0 mg/L [facility] Microalbum Creatinine Ratio Ur 1,164.2(H ) <30 ug/mg cr [facility] Comment:Albumin/Creatinine R atio Reference Ranges: Normal: < 30 ug/mg creatinine Microalbuminuria: 30 - 300 ug/mg creatinineClinical Albuminuria: > 300 ug/mg creatinine Urine (Urine, Random) 02/26/2024 2:00 PM EDT 02/26/2024 5:55 PM EDT us Gonzales Brennan MD LAB URINE ORDERABLES Final Result [facility] [address] [place] [phone] * (ABNORMAL) Lipid Panel, Standard (02/26/2024 1:58 PM EDT) Triglycerides 253(H) <150 mg/dL [facility] Comment:Desirable Triglyceri de: less than 150 mg/dLBorderline High Triglyceride 150-199 mg/dLHigh Triglyceride: 200-499 mg/dLVery High Triglyceride: greater than or equal to 5OO mg/dL Cholesterol 137 <200 mg/dL [facility] Comment:Desirable Cholestero l: less than 200 mg/dLBorderline High Cholesterol: 200-239 mg/dLHigh Cholesterol: greater than 239 mg/dL LDL Cholesterol Calculated 50 <100 mg/dL [facility] Comment:Desirable LDL: less than 100 mg/dLNear Optimal/Above Optimal LDL: 110- 129 mg/dLBorderline High LDL: 130-159 mg/dLHigh LDL: 160-189 mg/dLVery High LDL: greater than or equal to 190 mg/dL HDL Cholesterol 37(L) >40 mg/dL [facility] Comment:Desirable HDL: great er than 40 mg/dL Note: This HDL assay may give artificially low results in patients with liver disease. Blood Venous blood specimen / Unknown 02/26/2024 1:58 PM EDT 02/26/2024 5:52 PM EDT us Gonzales Brennan MD LAB BLOOD ORDERABLES Final Result [facility] [address] [place] [phone] * (ABNORMAL) POCT HGB A1C (11/23/2023 11:36 AM EDT) Hemoglobin A1C 6.1(A) 4.0 - 6.0 % QC Media Lot # [id number] Lot# Expiration Date [id number] Blood 11/23/2023 11:3 6 AM EDT us [...] a test for HCV RNA (test code 82275) is suggested. ?? For additional information please refer to http://education.[employer]/faq/JNG05e1 (This link is being provided for informational/ educational purposes only.) ?? 06/10/2021 11:5 0 AM EST us Gonzales Brennan MD HISTORICAL/NON ORDERABLE LA BS Final Result [facility] [address] from Last 3 Months or Most Recently Relevant to Health Maintenance Insurance [employer] PPO HSN FULL DENTAL - HSN FULL (MEDICAID) Care Teams On Call Relationship Specialty Start Date End Date Gonzales Brennan MD [address] [place] [phone] PCP - General Internal Medicine 04/27/18
--- OUTSIDE RECORDS SUMMARY | 2024-09-01 12:16 | XMS_ITS | Encounter Summary ---
Author Organization [employer] Address [address] [facility] 7t [place] [address] Care Team Providers Care Snipper Name Role Phone Gonzales Brennan MD Primary Care Provider [phone] Encounter Details Date Type Department Care Team ([facility] Contact Info) Description 02/24/2024 Orders Only [facility] MED & PEDS [address] [place], [place] [phone] Gonzales Brennan MD [address] [place], [place] [phone] Controlled type 2 diabetes with neuropathy (CMS/HCC) [...] Description 09/05/2024 2:00 PM EDT Office Visit [facility] ADULT DENTAL [address] [place] [address] Diaz Merida DMD [address] [place] [address] 09/14/2024 9:00 AM EDT Clinical Support [facility] MED & PEDS [address] [place] [address] Marisol Thomas RN [address] [place] [address] 10/17/2024 1:45 PM EDT Office Visit [facility] MED & PEDS [address] [place] [address] Gonzales Brennan MD [address] [place] [address] documented as of this encounter Procedures Procedure Name Priority Date/Time Associated Diagnosis Comments ALBUMIN, RANDOM URINE W/CREATININE Routine 02/26/2024 2:00 PM EDT Controlled type 2 diabetes with neuropathy (CMS/HCC) documented in this encounter Results * (ABNORMAL) Albumin, Random Urine W/Creatinine (02/26/2024 2:00 PM EDT) Creatinine, Urine 122.05 mg/dL [facility] Microalbumin Urine 1,421.0 mg/L [facility] Microalbum Creatinine Ratio Ur 1,164.2(H ) <30 ug/mg cr [facility] Comment:Albumin/Creatinine R atio Reference Ranges: Normal: < 30 ug/mg creatinine Microalbuminuria: 30 - 300 ug/mg creatinineClinical Albuminuria: > 300 ug/mg creatinine Urine (Urine, Random) 02/26/2024 2:00 PM EDT 02/26/2024 5:55 PM EDT us Gonzales Brennan MD LAB URINE ORDERABLES Final Result [facility] [address] [place] [phone] [phone] documented in this encounter Visit Diagnoses Diagnosis Controlled type 2 diabetes with neuropathy (CMS/HCC)- Primary Type II or unspecified type diabetes mellitus with neurological manifestations, not stated as uncontrolled documented in this encounter Additional Health Concerns Assessment Noted Time PHQ-9 Depression Total Score: 0 07/11/19 23 3:46 PM EDT documented as of this encounter Care Teams Snipper Relationship Specialty Start Date End Date Gonzales Brennan MD [address] [place] [phone] PCP - General Internal Medicine 04/27/18 documented as of this encounter
--- OUTSIDE RECORDS SUMMARY | 2024-09-01 12:16 | XMS_ITS | Encounter Summary ---
Author Organization [employer] Address [address] [facility] 7 [place] [address] Care Team Providers Care Towel Sorter Name Role Phone Gonzales Brennan MD Primary Care Provider [phone] [phone] Reason for Visit * Reason Onset Date Comments Hospital Follow-up 08/14/2023 Encounter Details Date Type Department Care Team ([facility] st Contact Info) Description 08/14/2023 Telephone [facility] MEDICINE [address] [place] [address] Gonzales Brennan MD [address] [place] [address] Hospital Follow-up Social History Tobacco Use Types [...] from pt requesting a HDF appt. Hospital: [facility] Date of admission: 07/29 Discharge date: 08/10 Diagnosed: Pneumonia documented in this encounter Plan of Treatment Upcoming Encounters Date Type Department Care Team (Late st Contact Info) Description 09/05/2024 2:00 PM EDT Office Visit [facility] ADULT DENTAL [address] [place] [address] Diaz Merida DMD [address] [place] [address] 09/14/2024 9:00 AM EDT Clinical Support [facility] MED & PEDS [address] [place] [address] Marisol Thomas RN [address] [place] [address] 10/17/2024 1:45 PM EDT Office Visit [facility] MED & PEDS [address] [place] [address] Gonzales Brennan MD [address] [place] [address] documented as of this encounter Visit Diagnoses Not on filedocumented in this encounter Additional Health Concerns Assessment Noted Time PHQ-9 Depression Total Score: 0 07/11/19 23 3:46 PM EDT documented as of this encounter Care Teams Towel Sorter Relationship Specialty Start Date End Date Gonzales Brennan MD [address] [place] [phone] PCP - General Internal Medicine 04/27/18 documented as of this encounter
--- OUTSIDE RECORDS SUMMARY | 2024-09-01 12:16 | XMS_ITS | Encounter Summary ---
Author Organization [employer] Address [address] [facility] 7t [place] [address] Care Team Providers Care Legal Word Processor Name Role Phone Gonzales Brennan MD Primary Care Provider [phone] [phone] Encounter Details Date Type Department Care Team ([facility] Contact Info) Description 12/02/2023 Orders Only [facility]EDS [address] [place], [place] [phone] Gonzales Brennan MD [address] [place] [address] Neck pain (Primary Dx) Social History Tobacco [...] Description 09/05/2024 2:00 PM EDT Office Visit [facility] ADULT DENTAL [address] [place] [address] Diaz Merida DMD [address] [place] [address] 09/14/2024 9:00 AM EDT Clinical Support [facility] MED & PEDS [address] [place] [address] Marisol Thomas RN [address] [place] [address] 10/17/2024 1:45 PM EDT Office Visit [facility] MED & PEDS [address] [place] [address] Gonzales Brennan MD [address] [place], [place] [phone] Scheduled Orders Name Type Priority Associated Diagnoses [...] EDT Narrative 01/25/2024 3:47 PM EDT ? [facility] ?[address] ?[place] [address] ?XRay Report ? Signed ? Patient: Hinkle,Sean ?MR#: [id number] ?? 2 ? : 1955 ?Acct:[id number] ? Age/Sex: 68 / M ?ADM Date: 12/03/23 ? Loc: HO.XRAY ? Attending Dr: Gonzales Brennan MD ? Ordering Physician: Gonzales Brennan MD ?? Date of Service: 12/03/23 ?? Procedure(s): XR cervical spine 3V ?? Accession Number(s): [id number] ? cc: Gonzales Brennan MD ? EXAMINATION: [...] DD/ 1338 ? TD/TT: 12/03/23 1350 ? Data Processing Manager: ? Procedure Note Donotuseinterpreter, Image - 01/25/[address] [address] XRay Report Signed Patient: Jewell Hinkle#: [id number] 2 : 5Acct:[id number] Age/Sex: 68 / MADM Date: 12/03/23 Loc: JOAN Attending Dr: Gonzales Brennan MD Ordering Physician: Gonzales Brennan MD Date of Service: 12/03/23 Procedure(s): XR cervical spine 3V Accession Number(s): [id number] cc: Gonzales Brennan MD EXAMINATION: XR CERVICAL [...] Taurus Trent MD 01/25/2024 03:44 PM EDT RP Dictated By: Taurus Trent MD Signed By: <Electronically signed by Taurus Trent MD in OV> 01/25/24 1544 DD/ 1338 TD/TT: 12/03/23 1350 Data Processing Manager: us Gonzales Brennan MD IMG XR PROCEDURES Final Res ult documented in this encounter Visit Diagnoses Diagnosis Neck pain- Primary Cervicalgia documented in this encounter Additional Health Concerns Assessment Noted Time PHQ-9 Depression Total Score: 0 07/11/19 3:46 PM EDT documented as of this encounter Care Teams Legal Word Processor Relationship Specialty Start Date End Date Gonzales Brennan MD [address] [place] [phone] PCP - General Internal Medicine 04/27/18 documented as of this encounter
--- OUTSIDE RECORDS SUMMARY | 2024-09-01 12:16 | XMS_ITS | Encounter Summary ---
Author Organization [employer] Address [address] [place] [address] 7t [place] [address] Care Team Providers Care Audio Production Instructor Name Role Phone Gonzales Brennan MD Primary Care Provider [phone] Reason for Visit * Reason Comments Med Refill Encounter Details Date Type Department Care Team ([facility] Contact Info) Description 05/19/2022 Refill [facility] MEDICINE [address] [place], [place] [phone] Gonzales Brennan MD [address] [place] [address] Chronic midline low back pain without sciatica [...] Upcoming Encounters Date Type Department Care Team ([facility] Contact Info) Description 09/05/2024 2:00 PM EDT Office Visit [facility] ADULT DENTAL [address] [place] [address] Diaz Merida DMD [address] [place], [place] [phone] 09/14/2024 9:00 AM EDT Clinical Support [facility] MED & PEDS [address] [place], [place] [phone] Marisol Thomas RN [address] [place] [address] 10/17/2024 1:45 PM EDT Office Visit [facility] CH[facility] MED & PEDS [address] [place] [address] Gonzales Brennan MD [address] [place] [address] documented as of this encounter Visit Diagnoses Diagnosis Chronic midline low back pain without sciatica documented in this encounter Care Teams Audio Production Instructor Relationship Specialty Start Date End Date Gonzales Brennan MD [address] [place] [address] PCP - General Internal Medicine 04/27/18 documented as of this encounter
--- OUTSIDE RECORDS SUMMARY | 2024-09-01 12:16 | XMS_ITS | Encounter Summary ---
Author Organization [employer] Address [address] [facility] 7t [place] [address] Care Team Providers Care Experimental Mechanic Spacecraft Name Role Phone Gonzales Brennan MD Primary Care Provider +1 [phone] Reason for Visit * Reason Comments Webster Patient presents tod ay for crown delivery Delmy AKINS Encounter Details Date Type Department Care Team ([facility] Contact Info) Description 08/30/2024 8:00 AM EDT Office Visit [facility] [address] [place] [address] Diaz Merida, DMD [address] [place] [address] Full coverage crown needed for tooth at risk for fracture (Primary Dx) Social History Tobacco Use Types [...] as of this encounter Progress Notes * Diaz Merida DMD - 08/30/2024 8:00 AM EDT Patient ID: Sean Hinkle is a 69 y.o. male. Time Out: Timeout Date: 08/30/24, Timeout Time: 810 (crown delivery) Location: [facility] Tooth: #21 and #22 Procedure: Webster Verified the above with patient, patient assistant, and provider. Confirmed via patient's chart, intraorally and by radiographs. Body Wirer: not applicable Chief Complaint Patient presents with Webster Patient presents today for crown delivery Delmy AKINS Medical Hx: Vitals: There were no vitals taken for this visit. Medications, Med Hx reviewed with patient and updated in chart. Consent Obtained: The risks, benefits, indications, potential complications, and alternatives were explained to the patient and informed consent was obtained with good understanding. Treatment Provided: Dental procedures in this visit [id number] - CROWN - PORCELAIN/CERAMIC 22 (Completed) Service provider: Diaz Merida DMD Billing provider: Diaz Merida DMD [id number] - CASE PRESENTATION, DETAILED AND EXTENSIVE TREATMENT PLANNING (Completed) Service provider: Diaz Merida DMD Billing provider: Diaz Merida DMD Pt in office for delivery of crowns #21,22 No issues with temporaries, no pain per patient Note heavy plaque present on remaining teeth. Stressed importance of homecare. Flossed and scaled Isolation: high speed suction and cotton rolls Removed Provisional and cleaned excess cement, pumiced tooth as needed. Note that upon removal of temp crowns, buildup and portion of tooth #21 fractured. Given area of fracture and limited ferrule, advise EXT. Informed pt who was very understanding. Recommend adding #21to partial and extracting #21 at NV. Pt understood and agreed. Pt left existing partial, impression taken of lower arch (following delivery of #22 crown) so lab can add #21. Tried on final rastafari Verified interproximal contacts and margins BW taken to confirm margins and contacts Occlusion adjusted as needed Tooth Treatment: Gluma applied Cemented with: Relyx Unicem Cleaned excess cement, flossed Patient satisfied with comfort and esthetics. POI given. Patient discharged alert, oriented, and in stable condition NV: #21 EXT and deliver repaired denture Cloud Physicist: Delmy Collado Dentist: Diaz Merida DMD documented in this encounter Plan of Treatment Upcoming Encounters Date Type Department Care Team (Late st Contact Info) Description 09/05/2024 2:00 PM EDT Office Visit [facility] [address] [place] [address] Diaz Merida DMD [address] [place] [address] 09/14/2024 9:00 AM EDT Clinical Support [facility] [address] [place] [address] Marisol Thomas RN 505 [place] [address] 10/17/2024 1:45 PM EDT Office Visit [facility] [address] [place] [address] Gonzales Brennan MD 505 [place] [address] Scheduled Orders Name Type Priority Associated Diagnoses Orde r Schedule 21 21 EXTRACTION, ERUPTED TOOTH OR EXPOSED ROOT (ELEVATION/FORCEPS REMOVAL) Dental Routine [address] arting 08/30/2024 21 21 ADD TOOTH TO EXISTING PARTIAL DENTURE Dental Routine [address] arting 08/30/2024 DENTAL LAB DENTURES AND PARTIALS Dental Routine Ordered: 025 documented as of this encounter Procedures Procedure Name Priority Date/Time Associated Diagnosis Comments 22 CROWN - PORCELAIN/CERAMIC Routine 08/30/2024 8:00 AM EDT Full coverage crown needed for tooth at risk for fracture CASE PRESENTATION, DETAILED AND EXTENSIVE TREATMENT PLANNING Routine 08/30/2024 8:00 AM EDT Full coverage crown needed for tooth at risk for fracture documented in this encounter Visit Diagnoses Diagnosis Full coverage crown needed for tooth at risk for fracture- Primary documented in this encounter Additional Health Concerns Assessment Noted Time PHQ-9 Depression Total Score: 0 07/11/19 23 3:46 PM EDT documented as of this encounter Care Teams Experimental Mechanic Spacecraft Relationship Specialty Start Date End Date Gonzales Brennan MD [address] [place] [address] PCP - General Internal Medicine 04/27/18 documented as of this encounter
--- OUTSIDE RECORDS SUMMARY | 2024-09-01 12:16 | XMS_ITS | Encounter Summary ---
Author Organization [employer] Address [address] [facility] 7 [place] [address] Care Team Providers Care Casket Coverer Name Role Phone Gonzales Brennan MD Primary Care Provider [phone] [phone] Reason for Visit * Reason Onset Date Comments Request For Order(s) 12/01/2023 Encounter Details Date Type Department Care Team ([facility] Contact Info) Description 12/01/2023 Telephone [facility] MED[facility]INE [address] [place] [address] Gonzales Brennan MD [address] [place] [phone] Request For Order(s) Social History Tobacco Use [...] Description 09/05/2024 2:00 PM EDT Office Visit [facility] ADULT D[facility] 505 [place] [address] Diaz Merida DMD 505 [place] [address] 09/14/2024 9:00 AM EDT Clinical Support [facility] MED & PEDS [address] [place] [address] Marisol Thomas, LEVI 505 [place] [address] 10/17/2024 1:45 PM EDT Office Visit [facility] PED[facility] [address] [place] [address] Gonzales Brennan MD 505 [place] [address] documented as of this encounter Visit Diagnoses Not on filedocumented in this encounter Additional Health Concerns Assessment Noted Time PHQ-9 Depression Total Score: 0 07/11/19 23 3:46 PM EDT documented as of this encounter Care Teams Casket Coverer Relationship Specialty Start Date End Date Gonzales Brennan MD [address] [place] [address] PCP - General Internal Medicine 04/27/18 documented as of this encounter
--- OUTSIDE RECORDS SUMMARY | 2024-09-01 12:16 | XMS_ITS | Encounter Summary ---
Author Organization [employer] Address 75 [facility] 7t [place] [address] Care Team Providers Care Auto Body Painter Name Role Phone Gonzales Brennan MD Primary Care Provider [phone] Reason for Visit * Reason Onset Date Comments Referral 05/04/2024 Encounter Details Date Type Department Care Team ([facility] Contact Info) Description 05/04/2024 Telephone [facility] MEDICINE [address] [place] [address] Gonzales Brennan MD [address] [place] [address] Referral Social History Tobacco Use Types Packs/Day [...] PM EST Most recent notes faxed to [phone]. * Telephone Encounter - Pia Philip - 05/04/2024 3:12 PM EST Tc from Laura from [facility] Neuro[facility] facility stating referral was received with CT scan but no office notes, Laura stated she needs notes on referral to be faxed over to them. [phone] documented in this encounter Plan of Treatment Upcoming Encounters Date Type Department Care Team (Late st Contact Info) Description 09/05/2024 2:00 PM EDT Office Visit [facility] ADULT [facility] [address] [place] [address] Diaz Merida DMD 505 [place] [address] 09/14/2024 9:00 AM EDT Clinical Support [facility] MED [facility] PEDS [address] [place] [address] Marisol Thomas RN 505 [place] [address] 10/17/2024 1:45 PM EDT Office Visit [facility] [address] [place] [address] Gonzales Brennan MD 505 [place] [address] documented as of this encounter Visit Diagnoses Not on filedocumented in this encounter Additional Health Concerns Assessment Noted Time PHQ-9 Depression Total Score: 0 07/11/19 23 3:46 PM EDT documented as of this encounter Care Teams Auto Body Painter Relationship Specialty Start Date End Date Gonzales Brennan MD [address] [place] [address] PCP - General Internal Medicine 04/27/18 documented as of this encounter
--- OUTSIDE RECORDS SUMMARY | 2024-09-01 12:16 | XMS_ITS | Encounter Summary ---
Author Organization [employer] Address [address] [place] [address] 7 [place] [address] Care Team Providers Care Electrical Unit Rebuilder Name Role Phone Gonzales Brennan MD Primary Care Provider [phone] Reason for Referral * Imaging (Routine) - Closed Specialty Diagnoses / Procedures Referred By Thad rosales Referred To Contact Radiology Diagnoses Neck pain Procedures CT Cervical Spine w/o Contrast Gonzales Brennan MD [address] [place] [address] Phone: tel: fax: [address] Phone: tel: fax: Referral ID Status Reason Start Date Expiration Date Visits Re quested Visits Authorized [id number] Closed 01/27/2024 01/26/2025 1 1 Encounter Details Date Type Department Care Team ([facility] st Contact Info) Description 01/27/2024 Orders Only [facility] MED [facility]EDS [address] [place], [place] [phone] Gonzales Brennan MD [address] [place], [place] [phone] Neck pain (Primary Dx) Social History Tobacco [...] PM EDT Office Visit [facility] ADULT DENT[facility] [address] [place] [address] Diaz Merida DMD 505 [place] [address] 09/14/2024 9:00 AM EDT Clinical Support [facility] MED & PEDS [address] [place] [address] Marisol Thomas RN 505 [place], [place] [phone] 10/17/2024 1:45 PM EDT Office Visit [facility] MED [facility] PED[facility] 505 [place], [place] [phone] Gonzales Brennan MD [address] [place], [place] [phone] documented as of this encounter Procedures Procedure Name Priority Date/Time Associated Diagnosis Comments CT CERVICAL SPINE WO CONTRAST Routine 02/02/2024 8:59 AM EDT Neck pain documented in this encounter Results * CT Cervical Spine w/o Contrast (02/02/2024 8:59 AM EDT) Anatomical Region Laterality Modality Spine, C-spine Computed Tomogra phy 02/02/2024 8:59 AM EDT Narrative 04/04/2024 11:41 AM EST ? [facility] ?[address] ?[place] [address] ? CT Scan Report ? Signed ? Patient: Sean Hinkle ?MR#: [id number] ?? 2 ? : 1955 ?Acct:[id number] ? Age/Sex: 68 / M ?ADM Date: 10/08/24 ? Loc: HO.CT ? Attending Dr: Gonzales Brennan MD ? Ordering Physician: Gonzales Brennan MD ?? Date of Service: 02/02/24 ?? Procedure(s): CT cervical spine wo IV con ?? Accession Number(s): [id number] ? cc: Gonzales Brennan MD ? EXAMINATION: [...] MD in OV> ?04/04/24 1138 ? DD/ 0859 ? TD/TT: 02/02/2414 ? Manufacturer Agent: ? Procedure Note Sweetie Jensen - 04/04/[address] [place] [address] [address] Scan Report Signed Patient: Sean HinkleMR#: [id number] 2 : 5Acct:[id number] Age/Sex: 68 / MADM Date: 02/02/24 Loc: HO.CT Attending Dr: Gonzales Brennan MD Ordering Physician: Gonzales Brennan MD Date of Service: 02/02/24 Procedure(s): CT cervical spine wo IV con Accession Number(s): [id number] cc: Gonzales Brennan MD EXAMINATION: CT CERVICAL [...] in OV> 04/04/24 1138 DD/ TD/TT: 02/02/24913 Manufacturer Agent: us Gonzales Brennan MD IMG CT PROCEDURES Final Res ult documented in this encounter Visit Diagnoses Diagnosis Neck pain- Primary Cervicalgia documented in this encounter Additional Health Concerns Assessment Noted Time PHQ-9 Depression Total Score: 0 07/11/19 23 3:46 PM EDT documented as of this encounter Care Teams Electrical Unit Rebuilder Relationship Specialty Start Date End Date Gonzales Brennan MD [address] [place] [address] PCP - General Internal Medicine 04/27/18 documented as of this encounter
--- OUTSIDE RECORDS SUMMARY | 2024-09-01 12:16 | XMS_ITS | Encounter Summary ---
Author Organization [employer] Address [address] [place] [address] 7 [place] [address] Care Team Providers Care Wood Lather Name Role Phone Gonzales Brennan MD Primary Care Provider [phone] [phone] Encounter Details Date Type Department Care Team (Latest Contact Info) Description 12/03/2018 Abstract [facility] CONVERSIONS Dental, Provider, DDS Social History [...] Care Team ( st Contact Info) Description 09/05/2024 2:00 PM EDT Office Visit [facility] ADULT DENT[facility] [address] [place] [address] Diaz Merida DMD 505 [place] [address] 09/14/2024 9:00 AM EDT Clinical Support [facility] MED & PEDS [address] [place] [address] Marisol Thomas RN [address] [place] [address] 10/17/2024 1:45 PM EDT Office Visit [facility] MED [facility] PEDS [address] [place] [address] Gonzales Brennan MD [address] [place] [address] documented as of this encounter Visit Diagnoses Not on filedocumented in this encounter Care Teams Wood Lather Relationship Specialty Start Date End Date Gonzales Brennan MD [address] [place] [address] PCP - General Internal Medicine 04/27/18 documented as of this encounter
--- OUTSIDE RECORDS SUMMARY | 2024-09-01 12:16 | XMS_ITS | Encounter Summary ---
Author Organization [employer] Address [address] [facility] 7t [place] [address] Care Team Providers Care Parts Cataloguer Name Role Phone Gonzales Brennan MD Primary Care Provider [phone] [phone] Encounter Details Date Type Department Care Team ([facility] Contact Info) Description 08/28/2023 Orders Only [facility] MED & PEDS [address] [place], [place] [phone] Gonzales Brennan MD [address] [place] [address] Atherosclerosis of [place] coronary artery of [place] [...] 09/05/2024 2:00 PM EDT Office Visit [facility] ADULT DENTAL [address] [place] [address] Diaz Merida DMD 505 [place] [address] 09/14/2024 9:00 AM EDT Clinical Support [facility] MED & PEDS [address] [place] [address] Marisol Thomas, LEVI [address] [place] [address] 10/17/2024 1:45 PM EDT Office Visit [facility] MED & PEDS [address] [place] [address] Gonzales Brennan MD [address] [place] [address] documented as of this encounter Visit Diagnoses Diagnosis Atherosclerosis of [place] coronary artery of [place] heart without angina pectoris- Primary documented in this encounter Additional Health Concerns Assessment Noted Time PHQ-9 Depression Total Score: 0 07/11/19 23 3:46 PM EDT documented as of this encounter Care Teams Parts Cataloguer Relationship Specialty Start Date End Date Gonzales Brennan MD [address] [place] [address] PCP - General Internal Medicine 04/27/18 documented as of this encounter
--- OUTSIDE RECORDS SUMMARY | 2024-09-01 12:16 | XMS_ITS | Encounter Summary ---
Author Organization [employer] Address 75 [facility] 7t [place] [address] Care Team Providers Care Scarf And Anneal Operator Name Role Phone Gonzales Brennan MD Primary Care Provider [phone] Reason for Visit * Reason Onset Date Comments Referral 02/23/2024 Encounter Details Date Type Department Care Team ([facility] Contact Info) Description 02/23/2024 Telephone [facility] MEDICINE [address] [place] [address] Gonzales Brennan MD 505 [place] [address] Referral Social History Tobacco Use Types Packs/Day [...] 12:37 PM) CC looked up patient on [facility] portal. Patient CT scan pictures are visible, but unable to save and scan on patient's chart. CC will send a request to [facility] to send any [...] pt. States he had it done at [facility]. I also informed pt. That PCP ordered the lab work that Roseanna REINOSO requested and pt. States he will go get that done today. * Telephone Encounter - Gonzales Brennan MD - 02/24/2024 9:07 PM EDT The order was placed. Please inform us if having further questions. * Telephone Encounter - Pia Cedrick - 02/23/2024 12:37 PM EDT Tc from Roseanna (KEMAR) requesting PCP to assist pt with referral for lab work Urine albumin to creatinine ratio (ACR) . Roseanna (KEMAR) [facility] [phone] documented in this encounter Plan of Treatment Upcoming Encounters Date Type Department Care Team (Late st Contact Info) Description 09/05/2024 2:00 PM EDT Office Visit [facility] [address] [place] [address] Diaz Merida DMD [address] [place] [address] 09/14/2024 9:00 AM EDT Clinical Support [facility] [address] [place] [address] Marisol Thomas, LEVI 505 [place] [address] 10/17/2024 1:45 PM EDT Office Visit [facility] [address] [place] [address] Gonzales Brennan MD [address] [place] [address] documented as of this encounter Visit Diagnoses Not on filedocumented in this encounter Additional Health Concerns Assessment Noted Time PHQ-9 Depression Total Score: 0 07/11/19 23 3:46 PM EDT documented as of this encounter Care Teams Scarf And Anneal Operator Relationship Specialty Start Date End Date Gonzales Brennan MD [address] [place] [address] PCP - General Internal Medicine 04/27/18 documented as of this encounter
--- OUTSIDE RECORDS SUMMARY | 2024-09-01 12:16 | XMS_ITS | Encounter Summary ---
Author Organization [employer] Address [address] [facility] 7t [place] [address] Care Team Providers Care Switch Coupler Name Role Phone Gonzales Brennan MD Primary Care Provider [phone] Encounter Details Date Type Department Care Team ([facility] Contact Info) Description 01/04/2024 Orders Only [facility] MED & PEDS [address] [place], [place] [phone] Gonzales Brennan MD [address] [place] [address] Essential hypertension (Primary Dx) Social History Tobacco [...] 09/05/2024 2:00 PM EDT Office Visit [facility] ADULT [facility] [address] [place] [address] Diaz Merida DMD 505 [place] [address] 09/14/2024 9:00 AM EDT Clinical Support [facility] PEDS [address] [place] [address] Marisol Thomas, LEVI [address] [place] [address] 10/17/2024 1:45 PM EDT Office Visit [facility] PEDS [address] [place] [address] Gonzales Brennan MD [address] [place] [address] documented as of this encounter Procedures Procedure Name Priority Date/Time Associated Diagnosis Comments URINALYSIS, COMPLETE Routine 01/21/2024 10:50 AM EDT Essential hypertension BASIC METABOLIC PANEL Routine 01/21/2024 10:44 AM EDT Essential hypertension documented in this encounter Results * (ABNORMAL) Urinalysis Complete (01/21/2024 10:50 AM EDT) Color Urine Yellow [facility] Appearance Urine Clear [facility] PH 5.5 5.0 - 9.0 [facility] Glucose Urine UA Negative Negative mg/dL [facility] Urine Blood Negative Negative [facility] Specific [place] - Urine 1.025 1.005 - 1.025 [facility] Urine Protein 300 (3+)(A) Neg-Trace mg/dL [facility] Urine Ketones Negative Negative mg/dL [facility] Nitrite Urine Negative Negative [facility] Leukocyte Esterase Urine Negative Negative [facility] RBC Urine 0-2 0 - 2 /HPF [facility] Urine WBC 0-5 0 - 5 /HPF [facility] Urine Squamous Epithelial Cell 0-2 0 - 2 /HPF [facility] Urine Bacteria None Seen None Seen [facility] Hyaline Casts, Urine 0-2 0 - 2 /LPF [facility] Urine (Urine, Random) 01/21/2024 10:50 AM EDT 01/21/2024 2:10 PM EDT us Gonzales Brennan MD LAB URINE ORDERABLES Final Result [facility] [address] [place] [address] [phone] * (ABNORMAL) Basic Metabolic Panel (01/21/2024 10:44 AM EDT) Sodium 142 135 - 145 mmol/L [facility] Potassium 4.3 3.3 - 5.1 mmol/L [facility] Chloride 107 96 - 108 mmol/L [facility] Carbon Dioxide 27 22 - 29 mmol/L [facility] Anion Gap 12 12 - 20 [facility] Urea Nitrogen (BUN) 18(H) 9 - 16 mg/dL [facility] Creatinine, Serum 1.03 0.5 - 1.4 mg/dL [facility] Estimated Glomerular Filt Rate >60 [facility] Comment:NOTE: For -Am erican individuals, multiply the result by 1.210.Chronic Kidney Disease: Estimated GFR < 60 mL/min/1.29v0Wdsdst Kidney Disease: Estimated GFR < 15 mL/min/1.73m2 Glucose 105 60 - 115 mg/dL [facility] Calcium 9.5 8.4 - 10.2 mg/dL [facility] Blood Venous blood specimen / Unknown 01/21/2024 10:44 AM EDT 01/21/2024 2:13 PM EDT Gonzales Brennan MD LAB BLOOD ORDERABLES Final Result [facility] [address] [place] [address] [phone] documented in this encounter Visit Diagnoses Diagnosis Essential hypertension- Primary Unspecified essential hypertension documented in this encounter Additional Health Concerns Assessment Noted Time PHQ-9 Depression Total Score: 0 07/11/19 23 3:46 PM EDT documented as of this encounter Care Teams Switch Coupler Relationship Specialty Start Date End Date Gonzales Brennan MD [address] [place] [address] PCP - General Internal Medicine 04/27/18 documented as of this encounter
== END 2024-09-01 11:04 | disposition home or self-care (01) ==
LOC: HO.HCS 10:47
PROVIDERS: PCP Internal Medicine; Visit Provider Internal Medicine Cardiovascular Disease
DX: I25.10 Atherosclerotic heart disease of native coronary artery without angina pectoris (principal); Z01.810 Encounter for preprocedural cardiovascular examination
CPT/HCPCS: 99214; G2211

== ENCOUNTER → 2024-09-01 10:47 | Outpatient (BNVA) | payer MEDICARE, SELFPAY | PROVIDERS: PCP Internal Medicine; Visit Provider Internal Medicine Cardiovascular Disease | DX: Z01.810 Encounter for preprocedural cardiovascular examination (principal); I25.10 Atherosclerotic heart disease of native coronary artery without angina pectoris | CPT/HCPCS: 99212 ==

== ENCOUNTER 2024-09-27 13:34 | Outpatient (AMB) | payer MEDICARE, SELFPAY ==
--- NOTE | 2024-09-27 13:37 | A.OFFVIS_ITS ---
Vital Signs 09/27/24 13:39 Height 5 ft 7 in Weight 228 lb BMI 35.7 BP 109/58 L Blood Pressure Location Lt brachial Position Sitting Pulse 66 Pulse Source Pulse Oximeter Pulse Oximetry (%) 93 Oxygen Delivery Method Room Air Intake Visit Reasons: copd Allergies Penicillins [PENICILLINS] Allergy (Severe, Verified 09/27/24 13:42) THROAT SWELLING penicillin V Allergy (Unknown, Verified 09/27/24 13:42) anaphylaxis HPI HPI copd: Details: 68-year-old gentleman, active 40+ pack-year smoker, r followed for pulmonary nodules and COPD.? He denies family history of lung diseases.? 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 He completed a follow-up CT chest that showed increasing size in his right lower nodule from 8 up to 10 mm and a new right upper lobe 7 mm nodule.? Patient was evaluated by thoracic surgery and decision has been reached to resect right-sided pulmonary nodules with wedge resection with one being a benign tumour and another a non tumour nodule. His lung cancer screening CT chest showed no worrisome pulmonary nodules in July of 2024..? He has been using Trelegy, theophylline, and albuterol MDI/nebs with reasonable control of his underlying COPD. He continuous on diuretic with good control of dyspnea on exertion and orthopnea. He denies any recent exacerbations. Patient is planned for cervical spine procedure in October of 2024 at [facility]. [facility] Medical History (Updated 09/27/24 @ 14:01 by Manolo Lucas MD) CAD (coronary artery disease) Dysphagia Tubular adenoma Tubular adenoma IBS (irritable bowel syndrome) Personal history of nicotine dependence Diabetes mellitus type 2, controlled Tubular adenoma of colon (~2019) GERD (gastroesophageal reflux disease) H/O benign carcinoid tumor Cough Back pain Anxiety and depression Lung nodule BPH (benign prostatic hyperplasia) Hyperthyroidism Left adrenal mass HLD (hyperlipidemia) Chest pain Obesity HTN (hypertension) COPD (chronic obstructive pulmonary disease) Surgical History History of total adrenalectomy History of colonoscopy History of lithotripsy (~2014) History of bilateral inguinal hernia repair (~2014) History of esophagogastroduodenoscopy (EGD) History of prostate surgery (~2017) History of cholecystectomy (~2019) History of cardiac cath (~2010) Family History Father Cancer Mother Lung cancer Brother Heart attack Social History Household Members Other:: Pt anxious and unable to respond at this time Do you presently have visiting nurse or other home services: Yes ([facility]) Alcohol intake: never Comment: Patient refusing all alarms Patient Tobacco Use Status: Former Tobacco user Tobacco use type: Cigarette Cigarette Packs Per Day: 0.5 Cigarettes Per Day: 10.0 Years Smoked: 50 Substance Use Type: Marijuana Advance Directives Date on File: 02/09/20 service: No Review of Systems Const Denies daytime sleepiness, Denies excessive sweating, Denies fatigue, Denies fever(s), Denies lethargy, Denies malaise, Denies night sweats, Denies snoring and Denies weight loss Eyes Denies blurry vision and Denies itchy eyes ENT Denies nasal congestion, Denies post nasal drip, Denies sinus pain, Denies sinus pressure and Denies other ( Thrush) Card Denies chest pain, Denies pedal edema, Denies dyspnea, Reports dyspnea on exertion (Chronic), Denies orthopnea and Denies paroxysmal nocturnal dyspnea Resp Denies cough, Denies hemoptysis, Denies excessive phlegm production, Denies dyspnea, Reports dyspnea on exertion (Chronic), Denies snoring and Denies wheezing GI Denies abdominal pain and Denies heartburn Musc Denies myalgias, Denies arthralgias and Denies joint swelling Skin/Breast Denies rash Neuro Denies memory loss and Denies seizure-like activity Psych Denies abnormal sleep pattern, Denies anxiety and Denies memory loss Endo Denies excessive sweating, Denies fatigue and Denies heat intolerance Kwasi/Lymph Denies easy bruising Aller/Immun Denies itchy eyes, Denies seasonal rhinorrhea and Denies wheezing Physical Exam Vital Signs: Last Vital Signs Pulse 66 09/27/24 13:39 BP 109/58 L 09/27/24 13:39 Pulse Ox 93 09/27/24 13:39 Oxygen Delivery Method Room Air 09/27/24 13:39 BMI result Body Mass Index 35.7 Const General: no acute distress and alert Nutritional Appearance: not obese Orientation/consciousness: Other orientation findings ( oriented) HEENT Head: Yes atraumatic Eyes General: appearance normal, both eyes and all related structures Sclerae: sclerae normal EOM: EOMs intact bilaterally Neck Neck: Yes supple Lymphatic: no lymphadenopathy noted Resp Effort & Inspection: normal respiratory effort and no use of accessory muscles Auscultation: clear to auscultation bilaterally Cardio Rate: regular rate Rhythm: regular rhythm Heart sounds: no gallops, no murmurs and no rubs Skin General skin exam: other ( warm) Extrem General: No clubbing, No cyanosis and Yes edema (Trace bilateral) Assessment & Plan Assessment & Plan (1) COPD (chronic obstructive pulmonary disease): Code(s): J44.9 - Chronic obstructive pulmonary disease, unspecified Category: Medical Plan: Reasonable control on underlying regimen of Trelegy, theophylline, and albuterol MDI/nebs. Will add Ohtuvayre. (2) Personal history of nicotine dependence: Comment: (current smoker, 40+PYH) Code(s): Z87.891 - Personal history of nicotine dependence Category: Medical Plan: Results of lung cancer screening CT chest from July of 2024 reviewed, no worrisome nodules at this time. Continue with yearly screening. (3) Orthopnea: Code(s): R06.01 - Orthopnea Category: Medical Plan: Well controlled on current diuretic regimen. Continue furosemide 40 mg every morning. (4) Encounter for preoperative pulmonary examination: Code(s): Z01.811 - Encounter for preprocedural respiratory examination Category: Medical Plan: At this time patient is at low risk for pulmonary perioperative complications fo r the proposed cervical spine procedure under general anesthesia. Coding Level of Care Code Est Pt Level 4 (54637) Complex EM visit Add On G2211 Diagnoses COPD (chronic obstructive pulmonary disease) J44.9 Personal history of nicotine dependence Z87.891 Orthopnea R06.01 Encounter for preoperative pulmonary examination Z01.811
[2024-09-27 13:39] VITALS: BP 109/58; PULSE 66; O2SAT 93; BMI 35.7
--- OUTSIDE RECORDS SUMMARY | 2024-09-27 15:12 | XMS_ITS | Clinical Summary ---
Author Organization [facility] Address [address] [place] [address] Care Team Providers Care Gas Line Installer Name Role Phone Unavailable Primary Care Provider Unavailabl e Surgical History Surgery Date Site/Laterality Comments OTHER SURGICAL HISTORY Right PROCEDURE: [place] RESCJ&BRONCHOPLASTY PFRMD TM LOBEC/SGMECTOMY Medical History Medical History Date Comments COPD (chronic obstructive pu lmonary disease) (CMS/HCC V24, CMS/HCC V28) DX:COPD (chronic o bstructive pulmonary disease) ([facility]) Mixed hyperlipidemia DX:Mixed hy perlipidemia Essential (primary) [...] Documents on File Type Date Recorded Patient Dietitian Research Expl anation Health Care Decision (hx) 08/01/2021 AD CERDA DIRECTIVE Health Care Decision (hx) 08/01/2021 AD CERDA DIRECTIVE
== END 2024-09-27 13:54 | disposition home or self-care (01) ==
LOC: HO.HPS 13:35
PROVIDERS: PCP Internal Medicine; Visit Provider Internal Medicine Pulmonary Disease
DX: J44.9 Chronic obstructive pulmonary disease, unspecified (principal); Z87.891 Personal history of nicotine dependence; R06.01 Orthopnea; Z01.811 Encounter for preprocedural respiratory examination
CPT/HCPCS: 99214; G2211

== ENCOUNTER → 2024-09-27 13:34 | Outpatient (BNVA) | payer MEDICARE, SELFPAY | PROVIDERS: PCP Internal Medicine; Visit Provider Internal Medicine Pulmonary Disease | DX: Z01.811 Encounter for preprocedural respiratory examination (principal); R06.01 Orthopnea; J44.9 Chronic obstructive pulmonary disease, unspecified; Z87.891 Personal history of nicotine dependence | CPT/HCPCS: 99212 ==

== ENCOUNTER 2024-10-24 14:05 | Outpatient (REF) | payer MEDICARE, MEDICAID, SELFPAY ==
--- OUTSIDE RECORDS SUMMARY | 2024-10-22 23:59 | XMS_ITS | Continuity of Care Document ---
Author Organization [facility] Address [address] [place] [address] [address], [address] [place] [address]- Care Team Providers Care Tool Polishing Machine Operator Name Role Phone Mika COLBY, Gonzales Primary Care Physician Encounter [facility] Date(s): 09/22/24 - 10/22/24 [facility] [address] [place] [address] Drive [address] [place], [place] [address] Encounter Type: Triage Allergies, Adverse Reactions, Alerts [...] Soft Stop, 06/06/24 2:15:00 PM EST, Tablet, [facility], Partial fill upon patient request if [...] Daily in AM, # 30 tablet, Refills 3, Tot. Refills 3, Maintenance, 10/20/24 10:36:00 AM EDT, Route to Pharmacy Electronically, [facility], 170, cm, 07/20/24 11:00:00 EDT, Height, 94.1, kg, 11/07/22 4:07:00 EDT, Dry Weight Start Date: 10/20/24 Status: Ordered Quantity: 30.0 Unit: tablet Repeat number: 4 Metoprolol Succinate ER 25 mg oral tablet, [...] MRI Safety Implantable Status Assigning Authority Unknown [id number] Unknown Unknown 05/04/21 Unknown Unknown Active Unknown Patient Care team information Care Team Personnel Name: Gonzales Brennan MD Position: [facility] Outreach Member Role: PCP Address: [address] [place] [address] Telecom: Name: Mariam Woo RN Position: [facility] RN Member Role: Primary Care Nurse Name: Rebecca San RN Position: [facility] RN Member Role: Primary Care Nurse Name: Paula Pascual RN Position: [facility] Hospital Project Internship Member Role: Primary Care Nurse Care Team Related Persons Name: EMMANUELLE RODARTE Name: HELENA BALBUENA Name: PRIYANKA BALBUENA Insurance Providers Guarantor name: SHANNON BALBUENA Health Plan Information #: 1 Payer: [employer] MEDICARE ADV PPO Payer Identifier: NA Member Number: [id number] Group Number: [id number] Subscriber Identifier: [id number] Relationship to Subscriber: self Coverage Type: Medicare PPO Coverage Verification Date: NA Telecom: Address:
[2024-10-24 14:18] LABS: MANUAL DIFF FLAG NO
[2024-10-24 14:27] LABS: Basophils Absolute Auto 0.1 X10*3/uL (0.0-0.2); Basophils Percent Auto 0.6 % (0-2); Eosinophils Absolute Auto 0.1 X10*3/uL (0.0-0.4); Eosinophils Percent Auto 1.3 % (0-4); Hematocrit 40.1 % (42.0-52.0); Imm Gran Abs Auto 0.02 X10*3/uL (0.00-0.03); Imm Gran Pct Auto 0.2 % (0.0-0.4); Lymphocytes Absolute Auto 2.5 X10*3/uL (1.2-4.9); Mean Corpuscular HGB Conc 34.9 g/dl (31.0-36.0); Mean Corpuscular Hemoglobin 30.6 pg (27.0-33.0); Mean Corpuscular Volume 87.7 fL (80.0-98.0); Mean Platelet Volume 9.1 fL (9.4-12.4); Monocytes Absolute Auto 0.8 X10*3/uL (0.1-1.2); Monocytes Percent Auto 8.6 % (2-11); Neutrophils Absolute Auto 5.4 x10*3/uL (2.0-8.3); Neutrophils Percent Auto 61.3 % (45-73); Platelet Count 163 X10*3/uL (160-400); Red Blood Count 4.57 X10*6/uL (4.60-5.80); Red Cell Distribution Width 12.7 % (11.0-16.0); White Blood Count 8.7 X10*3/uL (4.8-10.8)
--- OUTSIDE RECORDS SUMMARY | 2024-10-24 14:42 | XMS_ITS | Clinical Summary ---
Author Organization [facility] Address [address] [place] [address] Care Team Providers Care Care Transition Coordinator Name Role Phone Unavailable Primary Care Provider Unavailabl e Surgical History Surgery Date Site/Laterality Comments OTHER SURGICAL HISTORY Right PROCEDURE: [place] RESCJ&BRONCHOPLASTY PFRMD TM LOBEC/SGMECTOMY Medical History Medical History Date Comments COPD (chronic obstructive pu lmonary disease) (CMS/HCC V24, CMS/HCC V28) DX:COPD (chronic o bstructive pulmonary disease) ([facility]) Mixed hyperlipidemia DX:Mixed hy perlipidemia Essential (primary) [...] Documents on File Type Date Recorded Patient Electrolog Operator Expl anation Health Care Decision (hx) 08/01/2021 AD CERDA DIRECTIVE Health Care Decision (hx) 08/01/2021 AD CERDA DIRECTIVE
--- OUTSIDE RECORDS SUMMARY | 2024-10-24 14:42 | XMS_ITS | Encounter Summary ---
Author Organization [facility] Address [address] [place] [address] Care Team Providers Care Fitness Sales Consultant Name Role Phone Gonzales Brennan MD Primary Care Provider [phone] Reason for Visit * Reason Onset Date Comments returning call 09/02/2024 Encounter Details Date Type Department Care Team ([facility] st Contact Info) Description 09/02/2024 Telephone [facility] [address], [place] [id number] Diaz Merida, DMD [address] [place] [address] returning call Social History Tobacco Use Types Packs/Day Years [...] Orientation Straight 02/24/2022 10 :21 AM EDT Travel History Travel Start Travel End [place] 09/11/2024 09/30/2024 documented as of this encounter Miscellaneous Notes * Telephone Encounter - Kayla Dee - 09/02/2024 10:30 AM EDT Patient returned call that was placed to confirm appt for 09/05 at 2pm. He states he is unable to keep the appt and would need to reschedule for a morning visit. Please reach out to patient DR documented in this encounter Plan of Treatment Upcoming Encounters Date Type Department Care Team (Late st Contact Info) Description 11/02/2024 8:45 AM EDT Office Visit [facility] [address] [place] [address] Diaz Merida DMD [address] [place] [address] 02/14/2025 9:00 AM EDT Clinical Support [facility] [address] [place] [address] Marisol Thomas RN [address] [place] [address] documented as of this encounter Visit Diagnoses Not on filedocumented in this encounter Additional Health Concerns Assessment Noted Time PHQ-9 Depression Total Score: 0 07/11/19 23 3:46 PM EDT documented as of this encounter Care Teams Fitness Sales Consultant Relationship Specialty Start Date End Date Gonzales Brennan MD [address] [place] [address] PCP - General Internal Medicine 04/27/18 documented as of this encounter
[2024-10-24 15:22] LABS: Alanine Aminotransferase 19 U/L (0-40); Albumin Level 4.6 g/dL (3.5-5.0); Alkaline Phosphatase 63 U/L (39-117); Anion Gap 14 (12-20); Aspartate Amino Transferase 28 U/L (5-37); Bilirubin Total 0.4 mg/dL (0.0-1.0); Blood Urea Nitrogen 29 mg/dL (9-16); Calcium 9.5 mg/dL (8.4-10.2); Carbon Dioxide 26 mmol/L (22-29); Chloride 104 mmol/L (96-108); Cholesterol 139 mg/dL (<200); Estimated Glomerular Filt Rate 51; Glucose Random 102 mg/dL (60-115); HDL Cholesterol 33 mg/dL (>40); LDL Cholesterol Calculated 68 mg/dL (<100); Potassium 4.3 mmol/L (3.3-5.1); Sodium 140 mmol/L (135-145); Total Protein 7.5 g/dL (6.5-8.0); Triglycerides 190 mg/dL (<150)
[2024-10-24 15:42] LABS: TSH reflex Free T4 0.45 uIU/mL (0.32-4.0)
== END 2024-10-24 14:06 | disposition home or self-care (01) ==
LOC: HO.LAB 14:05
PROVIDERS: PCP Internal Medicine; Visit Provider Internal Medicine
DX: Z01.818 Encounter for other preprocedural examination (principal)
CPT/HCPCS: 36415; 80053; 80061; 84443; 85025

== ENCOUNTER 2024-12-21 10:57 | Outpatient (RCR) | payer MEDICARE, OTHER, SELFPAY ==
[2024-12-06 09:12] VITALS: BP 96/53; PULSE 54
== END 2025-01-09 13:36 | disposition home or self-care (01) ==
LOC: HO.PT 10:57
PROVIDERS: PCP Internal Medicine; Visit Provider Neurological Surgery
DX: M54.12 Radiculopathy, cervical region (principal); M54.2 Cervicalgia; Z98.1 Arthrodesis status
CPT/HCPCS: 97110; 97161; 97530

== ENCOUNTER 2024-12-30 08:16 | Outpatient (REF) | payer MEDICARE, OTHER, SELFPAY ==
--- OUTSIDE RECORDS SUMMARY | 2024-12-25 12:05 | XMS_ITS | Continuity of Care Document ---
Author Organization [facility] ter Address [address] [place] [address]- Care Team Providers Care Pharmacy Operations Coordinator Name Role Phone Mika COLBY, Gonzales Primary Care Physician [phone] [id number] Date(s): 12/24/24 - 12/25/24 [facility] [address] [place] [address]- Discharge Disposition: A-D/C AMA Attending Physician: Wong Dick MD Admitting Physician: Casey Potts MD Referring Physician: Not on Staff, Referring MD Encounter Type: Disch IP Allergies, Adverse Reactions, Alerts Substance Criticality Severity Reaction Reaction Severity Status penicillin anaphylaxis and shortness of breath respiratory distress Active Immunizations Given and Recorded Vaccine Date Status Refusal Reason pneumococcal 23-valent vaccine 1 07/31/11 Given 1Early/Late Reason: Patient Not Available/Off Unit Medications Albuterol (Eqv-ProAir HFA) 90 mcg/inh inhalation aerosol INHALE TWO PUFFS EVERY 4 TO 6 HOURS NEEDED SHORTNESS OF BREATH OR FOR WHEEZING Start Date: 11/06/22 Status: Ordered Medication Dispense Status: Completed Total Allowed Fills: 1 Fills Dispensed: 0 aspirin 81 mg oral tablet 1 tablet = 81 mg, By Mouth, Daily at bedtime, 0 Refills, Maintenance, 02/23/19 2:39:05 PM EDT Start Date: 02/23/19 Status: Ordered Medication Dispense Status: Completed Total Allowed Fills: 1 Fills Dispensed: 0 atorvastatin 40 mg oral tablet 1 tablet = 40 mg, By Mouth, Daily at bedtime, 0 Refills, Maintenance, 06/13/14 9:38:52 AM EST Start Date: 06/13/14 Status: Ordered Medication Dispense Status: Completed Total Allowed Fills: 1 Fills Dispensed: 0 cyclobenzaprine 10 mg oral tablet 10 mg, 1, tablet, By Mouth, 2 times a day, PRN, # 60 tablet, Refills 0, Tot. Refills 0, Maintenance, Spasm, 12/05/24 10:56:00 AM EDT, Route to Pharmacy Electronically, [facility],Partial fill upon patient request if the prescription is for a schedule II opioid drug., 170.18, cm, 12/05/24 10:48:00 EDT, Height, 102.7, kg, 11/04/24 20:58:00 EDT, Dry Weight Start Date: 12/05/24 Status: Ordered Medication Dispense Status: Completed Quantity: 60.0 Unit: tablet Total Allowed Fills: 1 Fills Dispensed: 0 docusate-senna 50 mg-187 mg oral tablet TAKE ONE TABLET AT BEDTIME NEEDED FOR CONSTIPATION Start Date: 11/06/22 Status: Ordered Medication Dispense Status: Completed Total Allowed Fills: 1 Fills Dispensed: 0 gabapentin 300 mg oral capsule 300 mg, Capsule, By Mouth, 12/25/24 9:00:00 AM EDT Start Date: 12/25/24 Stop Date: 12/25/24 Status: Completed Medication Dispense Status: Completed Total Allowed Fills: 1 Fills Dispensed: 0 gabapentin 600 mg oral tablet TAKE ONE TABLET THREE TIMES DAILY IN THE MORNING, EVENING AND BEDTIME Start Date: 11/06/22 Status: Ordered Medication Dispense Status: Completed Total Allowed Fills: 1 Fills Dispensed: 0 GlipiZIDE = 10 mg, By Mouth, Daily in AM, 0 Refills, Maintenance, 06/13/14 9:37:20 AM EST Start Date: 06/13/14 Status: Ordered Medication Dispense Status: Completed Total Allowed Fills: 1 Fills Dispensed: 0 hydrOXYzine hydrochloride 50 mg oral tablet TAKE ONE TABLET AT BEDTIME Start Date: 11/06/22 Status: Ordered Medication Dispense Status: Completed Total Allowed Fills: 1 Fills Dispensed: 0 isosorbide mononitrate 60 mg oral tablet, extended release 1 tablet = 60 mg, By Mouth, Daily in AM, 0 Refills, Maintenance, 06/13/14 9:40:29 AM EST Start Date: 06/13/14 Status: Ordered Medication Dispense Status: Completed Total Allowed Fills: 1 Fills Dispensed: 0 lansoprazole 30 mg oral enteric coated capsule 1 capsule = 30 mg, By Mouth, Daily in AM, TAKE ONE CAPSULE EVERY MORNING Start Date: 11/06/22 Status: Ordered Medication Dispense Status: Completed Total Allowed Fills: 1 Fills Dispensed: 0 metformin 1000 mg oral tablet 1 tablet = 1,000 mg, By Mouth, 2 times a day, 0 Refills, Maintenance, 06/13/14 9:38:00 AM EST Start Date: 06/13/14 Status: Ordered Medication Dispense Status: Completed Total Allowed Fills: 1 Fills Dispensed: 0 methimazole 5 mg oral tablet 1, tablet, By Mouth, Daily in AM, # 30 tablet, Refills 3, Tot. Refills 3, Maintenance, 10/20/24 10:36:00 AM EDT, Route to Pharmacy Electronically, [facility], 170, cm, 07/20/24 11:00:00 EDT, Height, 94.1, kg, 11/07/22 4:07:00 EDT, Dry Weight Start Date: 10/20/24 Status: Ordered Medication Dispense Status: Completed Quantity: 30.0 Unit: tablet Total Allowed Fills: 4 Fills Dispensed: 0 Metoprolol Succinate ER 25 mg oral tablet, extended release 1 tablet = 25 mg, By Mouth, Daily in AM, TAKE ONE TABLET BY MOUTH EVERY MORNING Start Date: 11/06/22 Status: Ordered Medication Dispense Status: Completed Total Allowed Fills: 1 Fills Dispensed: 0 naloxone 4 mg/0.1 mL nasal spray FOR SUSPECTED OPIOID OVERDOSE. SPRAY 0.1mL IN ONE NOSTRIL. REPEAT IN ALTERNATE NOSTRIL EVERY 2-3 MINUTES IF NEEDED. SEEK MEDICAL ATTENTION IMMEDIATELY EVEN IF PT RESPONDS. Start Date: 11/06/22 Status: Ordered Medication Dispense Status: Completed Total Allowed Fills: 1 Fills Dispensed: 0 Spiriva Respimat 60 2 puffs, Inhalation, Daily at supper, 0 Refills, Maintenance, 02/26/15 8:08:21 AM EST Start Date: 02/26/15 Status: Ordered Medication Dispense Status: Completed Total Allowed Fills: 1 Fills Dispensed: 0 tamsulosin 0.4 mg oral capsule 1 capsule = 0.4 mg, By Mouth, Daily at bedtime, 0 Refills, Maintenance, 06/13/14 9:39:39 AM EST Start Date: 06/13/14 Status: Ordered Medication Dispense Status: Completed Total Allowed Fills: 1 Fills Dispensed: 0 Trelegy Ellipta 200 mcg-62.5 mcg-25 mcg/inh inhalation powder INHALE 1 PUFF DAILY AT THE SAME TIME EACH DAY Start Date: 11/06/22 Status: Ordered Medication Dispense Status: Completed Total Allowed Fills: 1 Fills Dispensed: 0 Tylenol 8 HR Arthritis Pain = 1,300 mg, By Mouth, Every 8 hours, PRN Pain , Moderate, 0 Refills, Maintenance, 09/04/15 8:45:21 AM EDT Start Date: 09/04/15 Status: Ordered Medication Dispense Status: Completed Total Allowed Fills: 1 Fills Dispensed: 0 Vitamin D3 2000 intl units oral capsule TAKE ONE CAPSULE EVERY MORNING Start Date: 11/06/22 Status: Ordered Medication Dispense Status: Completed Total Allowed Fills: 1 Fills Dispensed: 0 Problem List Condition Confirmation Course Effective Dates [...] Confirmed Active 1Problem added by Discern Expert Results Radiology Reports * Exam Date Time Procedure Performing Provider Status 12/24/24 2:[address] Abd/Pelvis W/ IV Contrast Only Auth (Verified) Notes: (CT Abd/Pelvis W/ IV Contrast Only) Reason For Exam: trauma;Other: RESULT: CT Abd/Pelvis W/ IV Contrast Only CT Abd/Pelvis W/ IV Contrast Only Reason: Other:; trauma; Clinical Question(s): Hemorrhage Hematoma; Order Comment: Patient unable totolerate PO contrast. TECHNIQUE: Spiral CT through the abdomen and pelvis with IV contrast formatted in 3 planes. 100 cc of Isovue 300 was administered intravenously in conjunction with same day CTA of the chest. This study was performed without oral contrast. Weight-based protocol using automatic tube modulation was used to optimize exposure parameters. CTDIvol Body: 15.88 mGy, DLP Body: 1925 mGy*cm. COMPARISON: 11/06/2022 CT abdomen and pelvis. FINDINGS: Bench Worker Binding View Findings, Lines and Tubes: None. Visualized Chest: Lung bases are clear. No pleural effusion. The heart is normal in size. No pericardial effusion. Diaphragm: Normal. Liver: Normal. Gallbladder: Prior cholecystectomy. Bile ducts: No bile duct dilation. Spleen: Normal. Pancreas: Normal. Adrenal glands: Normal right adrenal gland. Left adrenal gland appears surgically absent. Kidneys and ureters: No hydronephrosis, stones, or suspicious masses. Bladder: Mild bladder wall thickening could be partly underdistention, unchanged from prior study. Reproductive organs: The prostate is mildly enlarged measuring 4.9 cm. The perineum is normal. Stomach, small bowel, and large bowel: The stomach is normal. The small bowel is normal in caliber,with no evidence of bowel obstruction. Multiple small bowel loops are fluid-filled, a nonspecific finding, and also seen in 202. The rectum is normal. The colon is normal. Appendix: Normal. Peritoneum and retroperitoneum: No ascites or pneumoperitoneum. No omental or mesenteric lesions. Lymph nodes: No enlarged lymph nodes. Blood vessels: Mild vascular calcifications but no aneurysm. No evidence of venous thrombosis. Abdominal and pelvic wall: Prior ventral hernia mesh repair in the anterior pelvis. Bones: No acute abnormality. Degenerative changes in the spine. Chronic lucency extending through the anterior osteophyte at L1, unchanged from 202. IMPRESSION: No acute findings in the abdomen or pelvis. WSN: [id number] Ordering Physician: Justin Pathak Dictated By: Manolo Sterling MD Dictated Date/Time: 12/24/24 2:43 pm Reviewed By: Manolo Sterling MD Signed By: Manolo Sterling MD Signed Date/Time: 12/24/24 2:43 pm Transcribed By: NOEL Transcribed Date/Time: 12/24/24 2:36 pm * Exam Date Time Procedure Performing Provider Status 12/24/24 2:[address] Cervical Spine W/O Contrast Auth (Verified) Notes: (CT Cervical Spine W/O Contrast) Reason For Exam: Neck trauma, dangerous injury mechanism;Other: RESULT: CT Cervical Spine W/O Contrast CT of the head and cervical spine dated December 24, 2024. No prior studies are available. HISTORY: Pain secondary to trauma. FINDINGS: CT imaging was performed with multislice acquisition from the foramen magnum through the vertex. No intravenous contrast material was utilized. Axial, coronal, and sagittal reconstruction was performed. A weight based protocol using automatic tube modulation was used to optimize exposure parameters. Examination the posterior fossa shows a normal size midline fourth ventricle. No mass, hemorrhage, or abnormal extra-axial fluid collection is identified. Supratentorially, the lateral and third ventricles are normal in size, contour and position. No mass, hemorrhage, or abnormal extra-axial fluid collection is identified. The katz-white matter differentiation is well preserved. No hyperdense vessel or loss of the insular ribbon is appreciated. Visualized osseous structures, paranasal sinuses and orbits are unremarkable. The mastoid air cells are clear. Evaluation of the cervical spine was performed with multislice acquisition from the skull base to the apices of the lungs with axial, coronal, and sagittal reconstruction. A weight based protocol using automatic tube modulation was used to optimize exposure parameters. The vertebral bodies are normal in height. There is interbody fusion and anterior fixation at C6-7.Interbody fusion devices are also present at C3-4 and C4-5. Degenerative changes are noted at C5-6 and C7-T1. The facet joints align normally. No locked or perched facets are identified. The craniocervical articulation is anatomic. Prevertebral soft tissues are within normal limits. No epidural hematoma is appreciated. The visualized apices of the lungs show scarring on the right. The esophagus is dilated and air-filled. IMPRESSION: Postoperative changes in the cervical spine. Degenerative changes in the cervical spine. No fracture or dislocation is appreciated. No evidence of acute intracranial abnormality. Examination 31040 and 51398. Thank you for allowing me to participate in the care of this patient. WSN: [id number] Ordering Physician: Justin Pathak Dictated By: Mo Oh MD Dictated Date/Time: 12/24/24 2:39 pm Reviewed By: Mo Oh MD Signed By: Mo Oh MD Signed Date/Time: 12/24/24 2:39 pm Transcribed By: NOEL Transcribed Date/Time: 12/24/24 2:24 pm * Exam Date Time Procedure Performing Provider Status 12/24/24 2:[address] Head/Brain W/O Contrast Auth (Verified) Notes: (CT Head/Brain W/O Contrast) Reason For Exam: Trauma RESULT: CT Head/Brain W/O Contrast CT of the head and cervical spine dated December 24, 2024. No prior studies are available. HISTORY: Pain secondary to trauma. FINDINGS: CT imaging was performed with multislice acquisition from the foramen magnum through the vertex. No intravenous contrast material was utilized. Axial, coronal, and sagittal reconstruction was performed. A weight based protocol using automatic tube modulation was used to optimize exposure parameters. Examination the posterior fossa shows a normal size midline fourth ventricle. No mass, hemorrhage, or abnormal extra-axial fluid collection is identified. Supratentorially, the lateral and third ventricles are normal in size, contour and position. No mass, hemorrhage, or abnormal extra-axial fluid collection is identified. The katz-white matter differentiation is well preserved. No hyperdense vessel or loss of the insular ribbon is appreciated. Visualized osseous structures, paranasal sinuses and orbits are unremarkable. The mastoid air cells are clear. Evaluation of the cervical spine was performed with multislice acquisition from the skull base to the apices of the lungs with axial, coronal, and sagittal reconstruction. A weight based protocol using automatic tube modulation was used to optimize exposure parameters. The vertebral bodies are normal in height. There is interbody fusion and anterior fixation at C6-7.Interbody fusion devices are also present at C3-4 and C4-5. Degenerative changes are noted at C5-6 and C7-T1. The facet joints align normally. No locked or perched facets are identified. The craniocervical articulation is anatomic. Prevertebral soft tissues are within normal limits. No epidural hematoma is appreciated. The visualized apices of the lungs show scarring on the right. The esophagus is dilated and air-filled. IMPRESSION: Postoperative changes in the cervical spine. Degenerative changes in the cervical spine. No fracture or dislocation is appreciated. No evidence of acute intracranial abnormality. Examination 31833 and 99162. Thank you for allowing me to participate in the care of this patient. WSN: [id number] Ordering Physician: Justin Pathak Dictated By: Mo Oh MD Dictated Date/Time: 12/24/24 2:39 pm Reviewed By: Mo Oh MD Signed By: Mo Oh MD Signed Date/Time: 12/24/24 2:39 pm Transcribed By: NOEL Transcribed Date/Time: 12/24/24 2:24 pm * Exam Date Time Procedure Performing Provider Status 12/24/24 2:[address] Angio Chest Auth (Broderick boston) Notes: (CT Angio Chest) Reason For Exam: PE suspected, Intermediate prob, positive D-dimer,;Other: RESULT: CT Angio Chest CT Angio Chest INDICATION: Reason: Other:; PE suspected, Intermediate prob, positive D-dimer,; Clinical Question(s): Pulmonary Embolism TECHNIQUE: Spiral CTA of the chest was performed after rapid IV contrast administration without cardiac gating, triggered by an GINA on the main pulmonary artery. Images are formatted in multiple planes using 2-D multiplanar and 3-D maximum intensity projection. 100 cc of Isovue 300 was administered intravenously. Weight-based protocol using automatic tube modulation was used to optimize exposure parameters. CTDIvol Body: 15.88 mGy, DLP Body: 1925 mGy*cm. COMPARISONS: None. ANGIOGRAPHIC FINDINGS: No pulmonary embolism to the segmental level. Motion degradation moderately limits assessment of distal vessels. Normal caliber pulmonary arteries. No interventricular septal bowing or reflux of contrast into the IVC. RV : LV ratio is greater than one, unchanged from prior study. No acute aortic abnormality seen on this study performed without cardiac gating. NON-ANGIOGRAPHIC FINDINGS: Bench Worker Binding view findings, lines and tubes: None. Trachea and airways: Patent without evidence of tracheal or endobronchial lesion. Lungs and pleura: Post surgical changes in the right lower lobe and medial right upper lobe. Mild dependent atelectasis. No focal consolidation. No effusion or pneumothorax. Mediastinum and camelia: No mass or hematoma. No mediastinal or hilar lymphadenopathy. Mildly patulousesophagus. Partially imaged thyroid is unremarkable. Heart: Heart is normal in size. No pericardial effusion. Moderate coronary artery calcification. Chest wall soft tissues: No acute abnormality. Diaphragm: Intact. Upper abdomen: No significant abnormality. Bones: Partially imaged cervical spine fusion hardware. Degenerative changes in the spine. No acuteabnormality. IMPRESSION: 1. Motion degraded study. No evidence of pulmonary embolism to the segmental level. A subsegmental embolism may be missed due to motion artifact. 2. No acute findings in the chest. WSN: [id number] Ordering Physician: Justin Pathak Dictated By: Manolo Sterling MD Dictated Date/Time: 12/24/24 2:36 pm Reviewed By: Manolo Sterling MD Signed By: Manolo Sterling MD Signed Date/Time: 12/24/24 2:36 pm Transcribed By: NOEL Transcribed Date/Time: 12/24/24 2:26 pm * Exam Date Time Procedure Performing Provider Status 12/24/24 1:52 PM Chest Portable Auth (Veri fied) Notes: (Chest Portable) Reason For Exam: AMS;Other: RESULT: Chest Portable AP supine portable chest dated December 24, 2024 1347 hours. Comparison films are from November 06, 2022. HISTORY: Acute change in mental status. FINDINGS: The cardiac silhouette is at the upper limits of normal for size. The mediastinum is widened. No airspace infiltrate or pleural effusion is identified. Postoperative changes are noted in the cervical spine. Degenerative changes are noted in the thoracic spine. IMPRESSION: Cardiac enlargement and mediastinal widening which are likely positional. No evidence of acute pulmonary disease. Examination 35251. Thank you for allowing me to participate in the care of this patient. WSN: [id number] Ordering Physician: Justin Pathak Dictated By: Mo Oh MD Dictated Date/Time: 12/24/24 1:56 pm Reviewed By: Mo Oh MD Signed By: Mo Oh MD Signed Date/Time: 12/24/24 1:56 pm Transcribed By: NOEL Transcribed Date/Time: 12/24/24 1:56 pm Social History Social History Type Response Smoking Status 5-9 cigarettes (betw een 1/4 to 1/2 pack)/day in last 30 days entered on: 06/06/24 Sex Sex Representation Male (finding) Implantable Device List Procedure Provider Procedure Date Device Type Site Discectomy and Fusion Anterior Cervical Lyness DO, Claire A 11/04/24 Unknown Cervical S pine Device Identifier Serial Number Lot or Batch Number Manufacturing Date Expiration Date Distinct Identification Code MRI Safety Implantable Status Assigning Authority Unknown [id number] Unknown Unknown 09/15/27 Unknown Unknown Active Unknown Procedure Provider Procedure Date Device Type Site Discectomy and Fusion Anterior Cervical Lyness DO, Claire A 11/09/18 Unknown Cervical S pine Device Identifier Serial Number Lot or Batch Number Manufacturing Date Expiration Date Distinct Identification Code MRI Safety Implantable Status Assigning Authority Unknown [id number] Unknown Unknown 05/04/21 Unknown Unknown Active Unknown Admission evaluation note * Alfred Gee DO: MODIFY, MODIFY, MODIFY, MODIFY, MODIFY, PERFORM, MODIFY, MODIFY Event Display: Admission Note Authored Date: [id number] Patient: ??SHANNON BALBUENA ? Age:??69 Years?Sex:??Male?:??1955?? Chief Complaint/Reason for Consultation from a freinds house, told his friend he was going to pass out, he did, fell to the ground; on ems arrival had several other witnessed episodes, hypotensive, given IVF; initially c/o right sided abd pain statrted yesterday, aftyer fall now c/o headache History of Present Illness 69-year-old male past medical history of COPD, type 2 diabetes mellitus, GERD, hypertension, hypothyroidism, CORIE, OHS, history of partial lobectomy/wedge resections, ACDF on November 04, 2024 who is presenting to [facility] emergency department with primary complaint of syncope.??He tells me he was in his normal state of health when he got home from his friend's house and was sitting at the dining room table.?? When he attempted to get up from the dining room table he suddenly syncopized without any preceding lightheadedness/dizziness/palpitations.?? He called his daughter who arrived and he had another episode of syncope for which they called EMS and he was transported to the emergency department.?? He became hypotensive on transport and required Levophed upon arrival to the emergency department.?? He denies any chest pain/shortness of breath/fever/chills.?? He does endorse some mild right flank pain although did have CT scan done which was negative for any acute findings. ?? Objective data: ??? Initially started on Levophed 0.1 mcg/kg/min which has not been down titrated to 0.05 mcg/kg/min after 3 L IVF ??? Is otherwise afebrile, saturating well on 2 L, exhibiting sinus bradycardia into the 40s ??? Laboratory evaluation significant for lactic acidosis (now resolved at 2.1), and acute kidney injury with creatinine of 1.62 ??? Urine toxicology positive for benzodiazepines ??? Urinalysis negative for UTI ??? CT head shows postoperative changes in the cervical spine with no fracture or dislocation. ??? CT angio chest shows no evidence of pulmonary embolism at the segmental level. ??? CT abdomen pelvis shows no acute findings ??? Patient had reported seizure activity in the ER was administered 2 mg of Versed and??2000 mg ofKeppra Review of Systems Except as listed above.?? Objective Vital Signs?? Temperature: 97.8 DegF (12/24/24 22:28:00) Temperature Route: Oral (12/24/24 22:28:00) Pulse Rate:??53 bpm??Low (12/24/24 22:28:00) Heart Rate Monitored: 56 bpm (12/24/24 22:25:58) Respiratory Rate: 20 br/min (12/24/24 22:32:00) Vented: No (12/24/24:25:00) Systolic Blood Pressure:??141 mm Hg??High (12/24/24 22:28:00) Diastolic Blood Pressure: 73 mm Hg (12/24/24 22:28:00) Blood pressure sites: Arm, right (12/24/24 22:28:00) Mean Arterial Pressure: 96 mm Hg (12/24/24 22:28:00) Pulse Pressure: 68 mm Hg (12/24/24 22:28:00) Oxygen Saturation: 94 % (12/24/24 22::00) Liters per Minute: 2 L/min (12/24/24 22:28:00) Mode of Delivery (Oxygen): Nasal cannula (12/24/24 22:28:00) End Tidal CO2: 35 mm Hg (12/24/24 22:25:58) Early Warning Score: 4 (12/24/24 20:53:28) ? Physical Exam Constitutional: Alert, in no distress. Mental Status: Oriented to person, place and time. Respiratory: Clear to auscultation. No wheezing, rales or rhonchi. Cardiovascular: S1 S2 regular. No murmurs, rubs or gallops. Gastrointestinal: Abdomen soft, non-tender, non-distended.?? Neurologic: No focal neurological deficits. Moves all extremities spontaneously. Sensation intact bilaterally. Skin: No rashes or lesions. No petechiae or purpura.?? Musculoskeletal: No cyanosis or clubbing. No gross deformities. Warm without pitting edema.?? Assessment/Plan 69-year-old male past medical history of COPD, type 2 diabetes mellitus, GERD, hypertension, hypothyroidism, CORIE, OHS, history of partial lobectomy/wedge resections, ACDF on November 04, 2024 who is presenting to [facility] emergency department with primary complaint of syncope.?? He was found to have altered mental status, NATHANIEL, hypotension requiring Levophed and was subsequently transferred to MICU for further management. ?? Neurology Acute encephalopathy, resolved ?Seizure Depression/anxiety Currently alert and oriented although reportedly was altered in the emergency department, likely insetting of hypotension. He is known to take his friend's oxycodones although denies use in past 2 weeks.??Utox negative except for benzo, which he was administered in the ED for seizure. Unclear cause of seizure that was witnessed in ER (shaking head for a few seconds). Loaded with keppra and administered versed.?? No organic etiology found. Needs c spine MRI for c collar clearance due to tenderness and recent surgery. ?? Plan: ??? Reduced dose of gabapentin 300 mg 3 times daily due to acute kidney injury ??? Continue fluoxetine 40 mg daily ??? Continue as needed hydroxyzine 50 mg at bedtime ??? Consider neurology consultation for??unprovoked seizures??with unknown??etiology, although unknown if patient truly experienced seizure ??? C-spine MRI for c-collar clearance ?? Cardiovascular Undifferentiated shock, likely hypovolemic Syncopal event Coronary artery disease Hypertension Hyperlipidemia ?Heart failure Patient is presenting with syncopal event.?? He tells me that he was sitting in dining room table when he got up and suddenly syncopized.?? He denies any preceding lightheadedness/palpitations.?? Overall appears hypovolemic/orthostasis in nature although??arrhythmia cannot be ruled out.?? He is exhibiting sinus bradycardia as low as in the 40s.?? No evidence of myocardial ischemia with flat troponin/ no ischemic EKG changes. Unclear if he has a history of heart failure as he is on furosemide as we do not have echocardiogram on file. ?? Plan: ??? Continue Levophed with MAP goal greater than 65 ??? Status post 3 L IVF, hold off on further fluid resuscitation at this time ??? Hold home antihypertensives ??? Hold home metoprolol 25 XL given sinus bradycardia ??? Continue aspirin 81 mg and atorvastatin 40 mg ?? Pulmonology COPD not in exacerbation No active issues.?? CTA negative for segmental PE. Plan: ??? Substitute Breo Ellipta for Trelegy ??? As needed albuterol ?? Nephrology Acute kidney injury Current creatinine of 1.68, baseline of 0.8.?? Likely in the setting of hypotension and hypoperfusion.?? Will expect improvement with??maintaining mean arterial pressures.? Plan: ??? Status post 3 L IVF ??? Maintain MAP above 65??NATHANIEL resolved ??? Trend kidney function panel ?? Gastroenterology GERD Plan: ??? Substitute esomeprazole with pantoprazole 40 mg ?? Endocrinology Type 2 diabetes mellitus Hyperthyroidism On glipizide and metformin at home.?? On methimazole 5 mg for her hyperthyroidism at home. ?? Plan: ??? Hold home antihyperglycemics ??? Start POC checks and insulin sliding scale ??? Continue home methimazole 5 mg ?? Infectious disease No concern for infection at this time. No white count, afebrile and without symptomatology to suggest infection. Plan ??? Monitor ?? DVT prophylaxis: Subcu heparin Diet: Regular CODE STATUS: Full confirmed ?? Alfred Gee, DO Internal Medicine PGY3 Histories Allergies Allergies ?(Active and Proposed Allergies Only) penicillin? (Severity: Unknown severity, Onset: Unknown) ?Reactions: anaphylaxis and shortness of breath, respiratory distress ? Past Medical History/Problem List Active Problems(12) Achalasia CAD (coronary artery disease) Cervical radiculopathy COPD (chronic obstructive pulmonary disease) COVID-19 Diabetes mellitus GERD (gastroesophageal reflux disease) Hypercholesteremia Hypertension Obese class I CORIE (obstructive sleep apnea) Tobacco abuse ? 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 Social History Alcohol Details:??Use: Current. ??Frequency: 1-2 times per year. Details:??Use: Never. Employment/School Details:??Status: Disabled. Home/Environment Details:??Living situation: Home/Independent. ??Lives with: ex . Nutrition/Health Details:??Diet: Diabetic. Substance Abuse Details:??Use: Never. Tobacco Details:??Use: 5-9 cigarettes (between 1/4 to 1/2 pack)/day in last 30 days. Details:??Current every day smoker, Other: Approx 1 pack per day. ??Type: Cigarettes. ??Tobacco usetimes per day: 10 cigarettes/day. ??Started at age: 13 Years. ? Family History No Family History documented. ? Medications Home Medications Acetaminophen (Tylenol 8 HR Arthritis Pain)??1,300 Milligram By Mouth Every 8 hours as needed Pain , Moderate Albuterol (Albuterol (Eqv-ProAir HFA) 90 mcg/inh inhalation aerosol)??INHALE TWO PUFFS EVERY 4 TO 6HOURS NEEDED SHORTNESS OF BREATH OR FOR WHEEZING Aspirin (aspirin 81 mg oral tablet)??1 tab(s) 81 Milligram By Mouth Daily at bedtime Atorvastatin (atorvastatin 40 mg oral tablet)??1 tab(s) 40 Milligram By Mouth Daily at bedtime Cholecalciferol (Vitamin D3 2000 intl units oral capsule)??TAKE ONE CAPSULE EVERY MORNING Cyclobenzaprine (cyclobenzaprine 10 mg oral tablet)??10 Milligram 1 tablet By Mouth 2 times a day as needed Spasm Docusate-Senna (docusate-senna 50 mg-187 mg oral tablet)??TAKE ONE TABLET AT BEDTIME NEEDED FOR CONSTIPATION fluticason/umeclidinium/vilant (Trelegy Ellipta 200 mcg-62.5 mcg-25 mcg/inh inhalation powder)??INHALE 1 PUFF DAILY AT THE SAME TIME EACH DAY Gabapentin (gabapentin 600 mg oral tablet)??TAKE ONE TABLET THREE TIMES DAILY IN THE MORNING, EVENING AND BEDTIME GlipiZIDE??10 Milligram By Mouth Daily in AM Hydrochlorothiazide-Lisinopril (hydrochlorothiazide-lisinopril 12.5 mg-10 mg oral tablet)??1 tab(s)By Mouth Daily in AM TAKE ONE TABLET EVERY MORNING HydrOXYzine (hydrOXYzine hydrochloride 50 mg oral tablet)??TAKE ONE TABLET AT BEDTIME Isosorbide Mononitrate (isosorbide mononitrate 60 mg oral tablet, extended release)??1 tab(s) 60 Milligram By Mouth Daily in AM Lansoprazole (lansoprazole 30 mg oral enteric coated capsule)??1 capsule 30 Milligram By Mouth Daily in AM TAKE ONE CAPSULE EVERY MORNING Metformin (metformin 1000 mg oral tablet)??1 tab(s) 1,000 Milligram By Mouth 2 times a day Methimazole (methimazole 5 mg oral tablet)??1 tablet By Mouth Daily in AM Metoprolol (Metoprolol Succinate ER 25 mg oral tablet, extended release)??1 tab(s) 25 Milligram By Mouth Daily in AM TAKE ONE TABLET BY MOUTH EVERY MORNING nalOXONE (naloxone 4 mg/0.1 mL nasal spray)??FOR SUSPECTED OPIOID OVERDOSE. SPRAY 0.1mL IN ONE NOSTRIL. REPEAT IN ALTERNATE NOSTRIL EVERY 2-3 MINUTES IF NEEDED. SEEK MEDICAL ATTENTION IMMEDIATELY EVEN IF PT RESPONDS. Tamsulosin (tamsulosin 0.4 mg oral capsule)??1 capsule 0.4 Milligram By Mouth Daily at bedtime Tiotropium (Spiriva Respimat 60)??2 puff(s) Inhalation Daily at supper ? Results Recent Labs BLOOD COUNT & DIFF WBC 9.4 k/mm3 ()?? 12/24/2024 13:51 RBC 4.23 m/mm3 (Low)?? 12/24/2024 13:51 Hgb 13.3 Gm/dL (Low)?? 12/24/2024 13:51 Hct 38.7 % (Low)?? 12/24/2024 13:51 MCV 91.5 femtoliters ()?? 12/24/2024 13:51 MCH 31.4 pg ()?? 12/24/2024 13:51 MCHC 34.4 Gm/dL ()?? 12/24/2024 13:51 Platelet Count 152 k/mm3 ()?? 12/24/2024 13:51 RDW-SD 45.0 femtoliters ()?? 12/24/2024 13:51 MPV 9.4 femtoliters ()?? 12/24/2024 13:51 Nucleated RBC (Automated) 0.0 #/100 WBC'S ()?? 12/24/2024 13:51 Abs. NRBC 0.0 k/mm3 ()?? 12/24/2024 13:51 Abs. Neut 6.6 k/mm3 ()?? 12/24/2024 13:51 Abs. Lymph 2.0 k/mm3 ()?? 12/24/2024 13:51 Abs. [place] 0.7 k/mm3 ()?? 12/24/2024 13:51 Abs. Eo 0.1 k/mm3 ()?? 12/24/2024 13:51 Abs. Baso 0.0 k/mm3 ()?? 12/24/2024 13:51 Neut % 70.1 % ()?? 12/24/2024 13:51 Lymph % 20.7 % ()?? 12/24/2024 13:51 [place] % 7.3 % ()?? 12/24/2024 13:51 Eos % 1.1 % ()?? 12/24/2024 13:51 Baso % 0.4 % ()?? 12/24/2024 13:51 Hemoglobin (POC) POC Cartridge 12.6 Gm/dL (Low)?? 12/24/2024 13:50 Hematocrit (POC) POC Cartridge 37 % (Low)?? 12/24/2024 13:50 Imm Gran 0.4 % ()?? 12/24/2024 13:51 Abs. Imm Gran 0.0 k/mm3 ()?? 12/24/2024 13:51 ?? BLOOD GAS pH Venous (POC) POC Cartridge 7.36 ()?? 12/24/2024 13:50 pCO2 Venous (POC) POC Cartridge 40.6 mm Hg (Low)?? 12/24/2024 13:50 pO2 Venous (POC) POC Cartridge 32 mm Hg (Low)?? 12/24/2024 13:50 Est Bicarbonate (POC) POC Cartridge 22.8 mmol/L ()?? 12/24/2024 13:50 % O2 Sat Venous (POC) POC Cartridge 59 ()?? 12/24/2024 13:50 Base Excess (POC) POC Cartridge NEGATIVE 3 ()?? 12/24/2024 13:50 Specimen Type - Blood Gas VENOUS ()?? 12/24/2024 13:50 ?? CARDIAC Nt-Probnp 207 pg/mL (High)?? 12/24/2024 13:51 High Sensitivity Troponin (HSTnT) 32 ng/L (High)?? 12/24/2024 16:13 ?? CHEM GENERAL Sodium 138 mmol/L ()?? 12/24/2024 13:51 Potassium 3.9 mmol/L ()?? 12/24/2024 13:51 Chloride 101 mmol/L ()?? 12/24/2024 13:51 Bicarbonate Level 22 mmol/L ()?? 12/24/2024 13:51 Anion Gap 15 mmol/L ()?? 12/24/2024 13:51 Sodium (POC) POC Cartridge 140 mmol/L ()?? 12/24/2024 13:50 Potassium (POC) POC Cartridge 3.8 mmol/L ()?? 12/24/2024 13:50 Glucose Level 198 mg/dL (High)?? 12/24/2024 13:51 Glucose (POC) POC Cartridge 207 (High)?? 12/24/2024 13:50 Glucose, POC 219 mg/dL (High)?? 12/24/2024 13:39 BUN 22 mg/dL ()?? 12/24/2024 13:51 Creatinine-Blood 1.62 mg/dL (High)?? 12/24/2024 13:51 Estimated GFR Creatinine 45 ML/MIN/1.73 M2 ()?? 12/24/2024 13:51 Calcium 9.1 mg/dL ()?? 12/24/2024 13:51 Calcium, Ionized pH Corrected 1.15 mmol/L ()?? 12/24/2024 13:51 Ionized Calcium (POC) POC Cartridge 1.15 mmol/L ()?? 12/24/2024 13:50 Protein, Total 6.8 Gm/dL ()?? 12/24/2024 13:51 Albumin 3.9 Gm/dL ()?? 12/24/2024 13:51 AG Ratio 1.3 ()?? 12/24/2024 13:51 Alkaline Phosphatase 79 units/L ()?? 12/24/2024 13:51 AST (SGOT) 16 units/L ()?? 12/24/2024 13:51 ALT (SGPT) 15 units/L ()?? 12/24/2024 13:51 Bilirubin, Total 0.3 mg/dL ()?? 12/24/2024 13:51 Lactate 2.1 mmol/L ()?? 12/24/2024 16:13 ?? COAG INR 1.0 ()?? 12/24/2024 13:51 Protime (PT) 10.8 seconds ()?? 12/24/2024 13:51 APTT 24.7 seconds ()?? 12/24/2024 13:51 ?? ENDOCRINE/TUMOR MARKER TSH 0.71 uIU/mL ()?? 12/24/2024 13:51 ?? TOXICOLOGY/TDM Ethanol, Serum or Plasma NONE DETECTED mg/dL ()?? 12/24/2024 13:51 Salicylate Level <0.3 mg/dL (Low) 12/24/2024 13:51 Barbiturate Screen, Urine NONE DETECTED ()?? 12/24/2024 18:06 Cannabinoid Screen, Urine NONE DETECTED ()?? 12/24/2024 18:06 Cocaine Metabolite Screen, Urine NONE DETECTED ()?? 12/24/2024 18:06 Benzodiazepine Screen, Urine POSITIVE (Abnormal)?? 12/24/2024 18:06 Amphetamine Screen, Urine NONE DETECTED ()?? 12/24/2024 18:06 Opiate Screen, Urine NONE DETECTED ()?? 12/24/2024 18:06 Acetaminophen Level <5 mg/L (Low) 12/24/2024 13:51 ?? UA/URINALYSIS Appear/Color, Urine LIGHT YELLOW ()?? 12/24/2024 18:06 Specific [place], Urine 1.032 (High)?? 12/24/2024 18:06 pH, Urine 6.0 ()?? 12/24/2024 18:06 Albumin, Urine TRACE (Abnormal)?? 12/24/2024 18:06 Glucose, Urine NEGATIVE ()?? 12/24/2024 18:06 Ketones, Urine NEGATIVE ()?? 12/24/2024 18:06 Bilirubin, Urine NEGATIVE ()?? 12/24/2024 18:06 Hemoglobin, Urine NEGATIVE ()?? 12/24/2024 18:06 Nitrite, Urine NEGATIVE ()?? 12/24/2024 18:06 Leukocyte, Urine NEGATIVE ()?? 12/24/2024 18:06 Urobilinogen NORMAL mg/dL ()?? 12/24/2024 18:06 WBC's, Urine 1 /HPF ()?? 12/24/2024 18:06 RBC's, Urine NONE SEEN /HPF ()?? 12/24/2024 18:06 Mucus SLIGHT /LPF ()?? 12/24/2024 18:06 ?? URINE OTHER Est Creatinine Clearance 39.57 mL/min ()?? 12/24/2024 22:32 ?? VIROLOGY Influenza A PCR NEGATIVE ()?? 12/24/2024 14:13 Influenza B PCR NEGATIVE ()?? 12/24/2024 14:13 RSV PCR NEGATIVE ()?? 12/24/2024 14:13 COVID-19 PCR Result NEGATIVE ()?? 12/24/2024 14:13 ? * Katlyn COLBY, Casey Hansen: PERFORM Event Display: Admission Note Authored Date: [id number] ?? CRITICAL CARE ATTENDING NOTE ?? Patient seen and examined, data reviewed, case and management discussed with house staff on rounds on the date of service (12/24/24). I confirmed the findings and agree with the resident's documentation of the assessment and plan of care we developed together as detailed below with the following high lights/additions/modifications. ?? Problem list: ?? Hypovolemic shock, on low-dose Levophed Acute kidney injury secondary to prerenal etiology Elevated lactic acid Past medical history of COPD, type 2 diabetes, GERD, hypertension, hypothyroidism, CORIE ?? Plan: ?? --Admit to the ICU as patient is requiring pressors --Continue to wean down Levophed to maintain MAP above 65.?? Will give additional 1 to 2 L of fluidas patient's story sounds like he is more hypovolemic than infected.?? Patient has no fever, no white blood cell count and no signs of infection.?? Will hold off on antibiotic therapy at this time.??Hold home antihypertensives --Monitor urine output.?? Hold nephrotoxic agents.?? Renally dose all medications.?? Monitor electrolytes and replace as needed --Trend lactic acid --Continue home dose of fluoxetine and hydroxyzine, but reduced home dose of gabapentin secondary to NATHANIEL --Continue aspirin and statin therapy --Start diet.?? Bowel regimen --Monitor blood sugars with goal blood sugars between 140 and 180 --Subcu heparin for DVT prophylaxis ?? Rest of care as below Full code Updated patient at bedside ?? At the time of service, this patient is critically ill due to acute impairment of 1 or more vital organ systems such that there is a high probability of imminent or life-threatening deterioration in the patient's condition. ?? Critical care management and additional activities included:? - Management of Unstable hemodynamics with vasopressors and/or inotrope. - Management of Unstable hemodynamics with IV fluids infusions or boluses. - Review of recent events - Review of medications, allergies, and vital signs - Serial data review - Ordering, interpreting, and reviewing diagnostic studies/lab tests - Clinical examination - High complexity medical decision-making ?? Critical Care Time:??75 minutes (this represents the total time I personally evaluation, managing and providing care exclusive of time spent for separately billable procedures.) ?? Jori Potts MD Critical Care Medicine Attending?? EKG study * Event Display: ECG 12-Lead Authored Date: Please click on pdf link to open report * Event Display: ECG 12-Lead Authored Date: Ventricular Rate: 49 BPM Atrial Rate: 49 BPM P-R Interval: 194 ms QRS Duration: 100 ms Q-T Interval: 490 ms QTC Calculation(Bazett): 442 ms P Brandon: 43 degrees R Brandon: -17 degrees T Brandon: 6 degrees Sinus bradycardia Inferior infarct (cited on or before 14-Mar-2010) Abnormal ECG When compared with ECG of 24-Dec-2024 13:41, No significant change was found Confirmed by Carlos Ta ([id number]) on 12/25/2024 9:46:39 AM [place]: Carlos Ta * Event Display: ECG 12-Lead Authored Date: [id number] Please click on pdf link to open report * Event Display: ECG 12-Lead Authored Date: [id number] Ventricular Rate: 62 BPM Atrial Rate: 62 BPM P-R Interval: 182 ms QRS Duration: 98 ms Q-T Interval: 442 ms QTC Calculation(Bazett): 448 ms P Brandon: 46 degrees R Brandon: -25 degrees T Brandon: -2 degrees Normal sinus rhythm Inferior infarct (cited on or before 14-Mar-2010) Abnormal ECG When compared with ECG of 06-Nov-2022 13:53, No significant change was found Confirmed by Carlos Ta ([id number]) on 12/24/2024 9:39:55 PM [place]: Carlos Ta [facility] Progress note * Rosie Khan RN: PERFORM, SIGN, VERIFY Event Display: Progress Note Hospital Authored Date: [id number] Patient: SHANNON BALBUENA Age: 69 years Sex: Male : 1955 Associated Diagnoses: None Author: Rosie Khan RN Findings Problem Related to Alteration in Tissue Perfusion : Alteration in Tissue Perfusion 12/25/2024 9:00 EDT Alteration Tissue Perfusion related to Hypovolemia Goals & Outcomes: Tissue perfusion Pt will maintain optimal perfusion to vital organs, Pt will resume/maintain adequate peripheral circulation, Pt will experience improved tissue perfusion, Pt will be hemodynamically stable, Pt will achieve normal/improved/optimal neuro status, Pt will return to baseline respiratory function, Pt will maintain adequate GI function appropriate for pt, Pt will maintain adequate function appropriate for pt, Pt will be discharged without infection Interventions: Tissue Perfusion Assess for s/s of infection of lines, drains, incisions, Assess/Monitor activity tolerance, Assess/Monitor cardiac dysrhythmias, Assess/Monitor CMS to affected extremity, Assess/Monitor mental status, Assess/Monitor peripheral pulses & capillary refill, Assess/Monitor presence & degree of edema, Assess/Monitor secretions & drainage for s/s of infection,Assess/Monitor tolerance of enteral feeds, Monitor blood loss, Monitor Intake & Output, Monitorlabs & report variances to provider, Monitor response to fluid replacement, Position for comfort, Report changes in hemodymamics to MD, Teach pt/caregiver on use of pain scale BH Goals/Interventions, Tissue Perfusion Yes Tissue Perfusion, Problem Start 12/25/2024 3:10 Reviewed Plan with, Tissue Perfusion Patient Patient Progression, Tissue Perfusion Pt progressing according to plan . Evaluation P: Alt in Tissue perfusion r/t hypovolemia, I: per nursing care plan, E: pt alert and oriented, follows all commands, able to make needs known, cervical collar remains in place as awaiitng MRI, CV: NSR to sibus nancy 60s with PACs, MAP > 65, +pp, no edema, afebrile, Resp: 2L NC placed as oxygen sat was 87%, Ls: insp/exp wheezes throughout, prn updrraft admin per RT with improvement, pt is SOB w exertion (? baseline), occasional congested non productive cough, abd: soft, + bs x 4, per Pt lastBm yesterday 12/24, voiding clear yellow urine in urinal, skin intact, appetite good this AM. See interactive flowsheet for further assessment and details. * Rosie Gale: PERFORM, SIGN, VERIFY Event Display: Progress Note Hospital Authored Date: Patient: SHANNON BALBUENA Age: 69 years Sex: Male : 1955 Associated Diagnoses: None Author: Rosie Gale Findings Problem Related to Alteration in Neurological : Alteration in Neurological Function/new 12/25/2024 3:00 EDT Alteration in Neuro status Related to Other: AMS Goals & Outcomes, Neurological Pt will be hemodynamically stable, Pt will be Neurologically stable, Pt will maintain intact skin integrity, Pt will remain free from injury, Pt will resume/maintain adequate cardiac output Interventions, Neurological Assess/monitor neurologic status, Assess/monitor VS per unit standards & prn, Emergency airway equipment at bedside, If no bowel movement in 3 days activate bowel regime, Keep patient's head & body in good alignment, Maintain HOB at least 30 deg, Maintain normothermia, report temp >101.5 F, Maintain strict intake & output, Monitor Fluid & Electrolytes, Serum Osmolarity, Monitor speech fluency, aphasia, word finding difficulty, Physical assessment per unit standards Goals/Interventions, Neurological Yes Neurological, Problem Start 12/25/2024 3:08 Reviewed plan with, Neurological Patient Patient Progression, Neurological Plan Initiation Comment: Neurological Eval: Please refer to flowsheet for further information. . Alteration in Tissue Perfusion : Alteration in Tissue Perfusion 12/25/2024 3:00 EDT Alteration Tissue Perfusion related to Hypovolemia, Shock Goals & Outcomes: Tissue perfusion Pt will maintain optimal perfusion to vital organs, Pt will resume/maintain adequate peripheral circulation, Pt will experience improved tissue perfusion, Pt will be hemodynamically stable, Pt will achieve normal/improved/optimal neuro status, Pt will return to baseline respiratory function, Pt will maintain adequate GI function appropriate for pt, Pt will maintain adequate function appropriate for pt, Pt will be discharged without infection Interventions: Tissue Perfusion Assess/Monitor cardiac dysrhythmias, Assess/Monitor mental status, Assess/Monitor peripheral pulses & capillary refill, Assess/Monitor presence & degree of edema, Monitor Intake & Output, Monitor labs & report variances to provider, Monitor response to fluid replacement, Elevate limbs, Physical assessment per unit standards, Position for comfort, Monitor response to vasoactive titration, Maintain patent IV access & invasive pressure monitoring BH Goals/Interventions, Tissue Perfusion Yes Tissue Perfusion, Problem Start 12/25/2024 3:10 Reviewed Plan with, Tissue Perfusion Patient Patient Progression, Tissue Perfusion Plan Initiation Comment: Tissue Perfusion Eval: pt off levo since 0000, please refer to flowsheet for further information. . Note * Buster Yu DO: PERFORM Event Display: Discharge/Transfer Note Hospital Authored Date: [id number] Patient: ??SHANNON BALBUENA ? Age:??69 Years?Sex:??Male?:??1955?? Patient Information Discharge Location: SICU Primary Care Physician: Mika COLBY , [facility] Admit Date/Time: 12/24/2024 22:14 Discharge Disposition Discharge Disposition: ??AMA, home Discharge Diagnosis Syncope (R55) _ Discharge Medications Acetaminophen (Tylenol 8 HR Arthritis Pain)??1,300 Milligram By Mouth Every 8 hours as needed Pain , Moderate Albuterol (Albuterol (Eqv-ProAir HFA) 90 mcg/inh inhalation aerosol)??INHALE TWO PUFFS EVERY 4 TO 6HOURS NEEDED SHORTNESS OF BREATH OR FOR WHEEZING Aspirin (aspirin 81 mg oral tablet)??1 tab(s) 81 Milligram By Mouth Daily at bedtime Atorvastatin (atorvastatin 40 mg oral tablet)??1 tab(s) 40 Milligram By Mouth Daily at bedtime Cholecalciferol (Vitamin D3 2000 intl units oral capsule)??TAKE ONE CAPSULE EVERY MORNING Cyclobenzaprine (cyclobenzaprine 10 mg oral tablet)??10 Milligram 1 tablet By Mouth 2 times a day as needed Spasm Docusate-Senna (docusate-senna 50 mg-187 mg oral tablet)??TAKE ONE TABLET AT BEDTIME NEEDED FOR CONSTIPATION fluticason/umeclidinium/vilant (Trelegy Ellipta 200 mcg-62.5 mcg-25 mcg/inh inhalation powder)??INHALE 1 PUFF DAILY AT THE SAME TIME EACH DAY Gabapentin (gabapentin 600 mg oral tablet)??TAKE ONE TABLET THREE TIMES DAILY IN THE MORNING, EVENING AND BEDTIME GlipiZIDE??10 Milligram By Mouth Daily in AM HydrOXYzine (hydrOXYzine hydrochloride 50 mg oral tablet)??TAKE ONE TABLET AT BEDTIME Isosorbide Mononitrate (isosorbide mononitrate 60 mg oral tablet, extended release)??1 tab(s) 60 Milligram By Mouth Daily in AM Lansoprazole (lansoprazole 30 mg oral enteric coated capsule)??1 capsule 30 Milligram By Mouth Daily in AM TAKE ONE CAPSULE EVERY MORNING Metformin (metformin 1000 mg oral tablet)??1 tab(s) 1,000 Milligram By Mouth 2 times a day Methimazole (methimazole 5 mg oral tablet)??1 tablet By Mouth Daily in AM Metoprolol (Metoprolol Succinate ER 25 mg oral tablet, extended release)??1 tab(s) 25 Milligram By Mouth Daily in AM TAKE ONE TABLET BY MOUTH EVERY MORNING nalOXONE (naloxone 4 mg/0.1 mL nasal spray)??FOR SUSPECTED OPIOID OVERDOSE. SPRAY 0.1mL IN ONE NOSTRIL. REPEAT IN ALTERNATE NOSTRIL EVERY 2-3 MINUTES IF NEEDED. SEEK MEDICAL ATTENTION IMMEDIATELY EVEN IF PT RESPONDS. Tamsulosin (tamsulosin 0.4 mg oral capsule)??1 capsule 0.4 Milligram By Mouth Daily at bedtime Tiotropium (Spiriva Respimat 60)??2 puff(s) Inhalation Daily at supper ? Quality Measures Tobacco Use Treatment:? Discharge Medications Unchanged Acetaminophen (Tylenol 8 HR Arthritis Pain)1,300 Milligram Oral every 8 hours as needed Pain , Moderate. Albuterol (Albuterol (Eqv-ProAir HFA) 90 mcg/inh inhalation aerosol)INHALE TWO PUFFS EVERY 4 TO 6 HOURS NEEDED SHORTNESS OF BREATH OR FOR WHEEZING. Aspirin (aspirin 81 mg oral tablet)1 tab(s) Oral Daily at Bedtime. Atorvastatin (atorvastatin 40 mg oral tablet)1 tab(s) Oral Daily at Bedtime. Cholecalciferol (Vitamin D3 2000 intl units oral capsule)TAKE ONE CAPSULE EVERY MORNING. Cyclobenzaprine (cyclobenzaprine 10 mg oral tablet)1 tab(s) Oral twice a day as needed Spasm. Refills: 0. Docusate-Senna (docusate-senna 50 mg-187 mg oral tablet)TAKE ONE TABLET AT BEDTIME NEEDED FOR CONSTIPATION. fluticason/umeclidinium/vilant (Trelegy Ellipta 200 mcg-62.5 mcg-25 mcg/inh inhalation powder)INHALE 1 PUFF DAILY AT THE SAME TIME EACH DAY. Gabapentin (gabapentin 600 mg oral tablet)TAKE ONE TABLET THREE TIMES DAILY IN THE MORNING, EVENINGAND BEDTIME. [id number] Milligram Oral Daily in the morning. HydrOXYzine (hydrOXYzine hydrochloride 50 mg oral tablet)TAKE ONE TABLET AT BEDTIME. Isosorbide Mononitrate (isosorbide mononitrate 60 mg oral tablet, extended release)1 tab(s) Oral Daily in the morning. Lansoprazole (lansoprazole 30 mg oral enteric coated capsule)1 capsule Oral Daily in the morning. TAKE ONE CAPSULE EVERY MORNING. Metformin (metformin 1000 mg oral tablet)1 tab(s) Oral twice a day. Methimazole (methimazole 5 mg oral tablet)1 tab(s) Oral Daily in the morning. Refills: 3. Metoprolol (Metoprolol Succinate ER 25 mg oral tablet, extended release)1 tab(s) Oral Daily in the morning. TAKE ONE TABLET BY MOUTH EVERY MORNING. nalOXONE (naloxone 4 mg/0.1 mL nasal spray)FOR SUSPECTED OPIOID OVERDOSE. SPRAY 0.1mL IN ONE NOSTRIL. REPEAT IN ALTERNATE NOSTRIL EVERY 2-3 MINUTES IF NEEDED. SEEK MEDICAL ATTENTION IMMEDIATELY EVEN IF PT RESPONDS.. Tamsulosin (tamsulosin 0.4 mg oral capsule)1 capsule Oral Daily at Bedtime. Tiotropium (Spiriva Respimat 60)2 puff(s) Inhalation Daily at supper. Discontinued Hydrochlorothiazide-Lisinopril (hydrochlorothiazide-lisinopril 12.5 mg-10 mg oral tablet)1 tab(s) Oral Daily in the morning. TAKE ONE TABLET EVERY MORNING. Allergies Allergies ?(Active and Proposed Allergies Only) penicillin? (Severity: Unknown severity, Onset: Unknown) ?Reactions: anaphylaxis and shortness of breath, respiratory distress ? PCP Follow-Up/Heads-Up p/w syncope, hypovolemic shock follow up on medication management Future Appointments Thursday 9:00 AM EDT ?? Type: Return With: Angelique Grover MD Where: [facility] Endocrine [address] [place] [address]- Status: Pending Hospital Course 69-year-old male past medical history of COPD, type 2 diabetes mellitus, GERD, hypertension, hypothyroidism, CORIE, OHS, history of partial lobectomy/wedge resections, ACDF surgery on November 04, 2024 whois admitted to [facility] with syncope, admitted for??hypovolemic shock requiring pressors, and admitted to the MICU for further management, now weaned off pressors.??Unfortunately,??patient became frustrated and wanted to go home.?patient had capacity, demonstrated understanding??of the situation,??able to??appreciate the??pros and cons??to leaving AGAINST MEDICAL ADVICE,??was able to make a choice??and explained reasoning??for his decision, thus??patient signed??AMA forms??and left??with his sister.?? Did attempt to discuss??patient's home medications however states that??he will follow-up withhis PCP to discuss further??on his home medications. ?? Neurology Acute encephalopathy, resolved ?Seizure Depression/anxiety Syncope Syncope likely in the setting of??orthostasis/hypovolemia, low suspicion for cardiac etiology??(though does have sinus bradycardia), patient did have report??of seizure in the ED??(though unclear if this was true seizure),??low suspicion for stroke (CT head negative) Reportedly altered in the ED,??likely acute encephalopathy??secondary to hypoperfusion from shock. ??Of note U tox negative except for benzos??(however received benzos in the ED for concern of seizure) Additionally, in the ED??patient had an episode of??head shaking, concerning for seizure and thus was loaded with Keppra administered Versed Currently, patient is AO x 3, and needed??C-spine MRI ??for clearance??for cervical spine given tenderness and recent surgery but left prior to MRI could be obtained PCP to follow up on home medications and if concern for seizure activity, refer to neurology.? Recommendation: ??? Gabapentin 300 mg 3 times daily (dosing reduced due to NATHANIEL) ??? Continue fluoxetine 40 mg daily ??? Continue as needed hydroxyzine 50 mg at bedtime ??? Consider neurology consultation for??unprovoked seizures??with unknown??etiology, although unknown if patient truly experienced seizure ??? C-spine MRI for c-collar clearance ?? Cardiovascular Hypovolemic Shock - resolved Coronary artery disease Hypertension Hyperlipidemia Presented with syncopal event,??was found to be hypotensive, with an NATHANIEL and altered mental status,s/p 3 L IVF Likely??shock??in the setting of hypovolemia, low suspicion for?septic??(no localizing symptoms for infection, afebrile, no leukocytosis),??cardiogenic (not volume overloaded,??low suspicion for ACS,??warm and perfusing),??obstructive (no signs of??pneumothorax or??PE) Additionally patient??is on??Lasix, unclear??why,??no documented history of heart failure, and there is no echocardiogram on??file Patient has now been weaned off pressors,??and has been maintaining maps greater than 65,??is hemodynamic stable ?? Recommendation: ??? Discontinue??home hydrochlorothiazide ??? Hold home metoprolol 25 XL given sinus bradycardia, and hold home Imdur, patient to follow-up with PCP in regards to??hypertension management ??? Continue aspirin 81 mg and atorvastatin 40 mg ??? Downgrade to acute??with telemetry ?? Pulmonology COPD not in exacerbation CORIE OHS No active issues ?? Recommendation: ??? Continue Trelegy ?? Nephrology Acute kidney injury - improving Current creatinine of 1.68, baseline of 0.8.?? Likely in the setting of hypotension and hypoperfusion. s/p 3L IVF ?? Recommendation: ??? PCP to repeat??kidney function testing ?? Gastroenterology GERD ?? Recommendation: ??? Continue home PPI ?? Endocrinology Type 2 diabetes mellitus Hyperthyroidism On glipizide and metformin at home.?? On methimazole 5 mg for her hyperthyroidism at home. ?? Recommendation: ??? Continue home diabetic regimen, PCP to follow-up on further??DM management ??? Continue home methimazole 5 mg ?? Patient left AGAINST MEDICAL ADVICE on 12/25, despite??discussing the risks and benefits with patient, he was adamant??to leave the hospital, and declined??waiting for his paperwork.?? He demonstrate capacity,??and thus ultimately??left AGAINST MEDICAL ADVICE, did note that he will follow-up with his??PCP in regards to his medications. ??He left??with his sister. Objective Measurements?? Height: 170 cm (12/24/24) Weight: 98.6 kg (12/24/24) Dry Weight: 98.6 kg (12/24/24) Body Mass Index:??34.12 kg/m2??Critical (12/24/24) ? Vital Signs?? Temperature: 98.8 DegF (12/25/24 08:00:00) Temperature Route: Oral (12/25/24 08:00:00) Pulse Rate:??53 bpm??Low (12/24/24 22:28:00) Heart Rate Monitored: 56 bpm (12/25/24 11:00:40) Respiratory Rate: 24 br/min (12/25/24 11:00:40) Vented: No (12/25/24 11:00:00) Systolic Blood Pressure: 111 mm Hg (12/25/24 11:00:00) Diastolic Blood Pressure: 76 mm Hg (12/25/24 11:00:00) Blood pressure sites: Arm, right (12/25/24 10:00:00) Mean Arterial Pressure: 96 mm Hg (12/24/24 22:28:00) Pulse Pressure: 35 mm Hg (12/25/24 11:00:00) Oxygen Saturation:??93 %??Low (12/25/24 10:00:42) Liters per Minute: 2 L/min (12/25/24 10:00:00) Mode of Delivery (Oxygen): Nasal cannula (12/25/24 10:00:00) End Tidal CO2: 39 mm Hg (12/25/24 08:00:44) Early Warning Score: 4 (12/24/24 20:53:28) ? . Physical Exam Constitutional: Alert, in no distress. Mental Status: Oriented to person, place and time. Respiratory: Expiratory wheezes bilaterally Cardiovascular: S1 S2 regular. No murmurs, rubs or gallops. Gastrointestinal: Abdomen soft, non-tender, non-distended. Neurologic: No focal neurological deficits. Consultants Neurosurgery Pending Results MRI Cervical Spine W/O Contrast ordered on 12/25/2024 Post Discharge Care Discharge ?Discharge AMA, 12/25/24 11:44:00 EDT ?Order Comment:?? Results Discharge Labs BLOOD COUNT & DIFF WBC 8.1 k/mm3 ()?? 12/25/2024 01:53 RBC 3.97 m/mm3 (Low)?? 12/25/2024 01:53 Hgb 12.0 Gm/dL (Low)?? 12/25/2024 01:53 Hct 35.8 % (Low)?? 12/25/2024 01:53 MCV 90.2 femtoliters ()?? 12/25/2024 01:53 MCH 30.2 pg ()?? 12/25/2024 01:53 MCHC 33.5 Gm/dL ()?? 12/25/2024 01:53 Platelet Count 144 k/mm3 (Low)?? 12/25/2024 01:53 RDW-SD 45.0 femtoliters ()?? 12/25/2024 01:53 MPV 9.4 femtoliters ()?? 12/25/2024 01:53 Nucleated RBC (Automated) 0.0 #/100 WBC'S ()?? 12/25/2024 01:53 Abs. NRBC 0.0 k/mm3 ()?? 12/25/2024 01:53 Abs. Neut 6.6 k/mm3 ()?? 12/24/2024 13:51 Abs. Lymph 2.0 k/mm3 ()?? 12/24/2024 13:51 Abs. [place] 0.7 k/mm3 ()?? 12/24/2024 13:51 Abs. Eo 0.1 k/mm3 ()?? 12/24/2024 13:51 Abs. Baso 0.0 k/mm3 ()?? 12/24/2024 13:51 Neut % 70.1 % ()?? 12/24/2024 13:51 Lymph % 20.7 % ()?? 12/24/2024 13:51 [place] % 7.3 % ()?? 12/24/2024 13:51 Eos % 1.1 % ()?? 12/24/2024 13:51 Baso % 0.4 % ()?? 12/24/2024 13:51 Hemoglobin (POC) POC Cartridge 12.6 Gm/dL (Low)?? 12/24/2024 13:50 Hematocrit (POC) POC Cartridge 37 % (Low)?? 12/24/2024 13:50 Imm Gran 0.4 % ()?? 12/24/2024 13:51 Abs. Imm Gran 0.0 k/mm3 ()?? 12/24/2024 13:51 ?? BLOOD GAS pH Venous (POC) POC Cartridge 7.36 ()?? 12/24/2024 13:50 pCO2 Venous (POC) POC Cartridge 40.6 mm Hg (Low)?? 12/24/2024 13:50 pO2 Venous (POC) POC Cartridge 32 mm Hg (Low)?? 12/24/2024 13:50 Est Bicarbonate (POC) POC Cartridge 22.8 mmol/L ()?? 12/24/2024 13:50 % O2 Sat Venous (POC) POC Cartridge 59 ()?? 12/24/2024 13:50 Base Excess (POC) POC Cartridge NEGATIVE 3 ()?? 12/24/2024 13:50 Specimen Type - Blood Gas VENOUS ()?? 12/24/2024 13:50 ? CARDIAC Nt-Probnp 207 pg/mL (High)?? 12/24/2024 13:51 High Sensitivity Troponin (HSTnT) 32 ng/L (High)?? 12/24/2024 16:13 ?? CHEM GENERAL Sodium 140 mmol/L ()?? 12/25/2024 01:53 Potassium 4.1 mmol/L ()?? 12/25/2024 01:53 Chloride 106 mmol/L ()?? 12/25/2024 01:53 Bicarbonate Level 26 mmol/L ()?? 12/25/2024 01:53 Anion Gap 8 mmol/L ()?? 12/25/2024 01:53 Sodium (POC) POC Cartridge 140 mmol/L ()?? 12/24/2024 13:50 Potassium (POC) POC Cartridge 3.8 mmol/L ()?? 12/24/2024 13:50 Glucose Level 82 mg/dL ()?? 12/25/2024 01:53 Glucose (POC) POC Cartridge 207 (High)?? 12/24/2024 13:50 Glucose, POC 95 mg/dL ()?? 12/25/2024 06:11 BUN 17 mg/dL ()?? 12/25/2024 01:53 Creatinine-Blood 1.18 mg/dL ()?? 12/25/2024 01:53 Estimated GFR Creatinine 66 ML/MIN/1.73 M2 ()?? 12/25/2024 01:53 Calcium 8.6 mg/dL ()?? 12/25/2024 01:53 Calcium, Ionized pH Corrected 1.15 mmol/L ()?? 12/24/2024 13:51 Ionized Calcium (POC) POC Cartridge 1.15 mmol/L ()?? 12/24/2024 13:50 Protein, Total 6.3 Gm/dL ()?? 12/25/2024 01:53 Albumin 3.6 Gm/dL ()?? 12/25/2024 01:53 AG Ratio 1.3 ()?? 12/25/2024 01:53 Alkaline Phosphatase 71 units/L ()?? 12/25/2024 01:53 AST (SGOT) 15 units/L ()?? 12/25/2024 01:53 ALT (SGPT) 12 units/L ()?? 12/25/2024 01:53 Bilirubin, Total 0.3 mg/dL ()?? 12/25/2024 01:53 Lactate 2.1 mmol/L ()?? 12/24/2024 16:13 ?? COAG INR 1.0 ()?? 12/24/2024 13:51 Protime (PT) 10.8 seconds ()?? 12/24/2024 13:51 APTT 24.7 seconds ()?? 12/24/2024 13:51 ? ENDOCRINE/TUMOR MARKER TSH 0.71 uIU/mL ()?? 12/24/2024 13:51 Cortisol Level 5.5 ??g/dL ()?? 12/25/2024 01:53 ?? TOXICOLOGY/TDM Ethanol, Serum or Plasma NONE DETECTED mg/dL ()?? 12/24/2024 13:51 Salicylate Level <0.3 mg/dL (Low) 12/24/2024 13:51 Barbiturate Screen, Urine NONE DETECTED ()?? 12/24/2024 18:06 Cannabinoid Screen, Urine NONE DETECTED ()?? 12/24/2024 18:06 Cocaine Metabolite Screen, Urine NONE DETECTED ()?? 12/24/2024 18:06 Benzodiazepine Screen, Urine POSITIVE (Abnormal)?? 12/24/2024 18:06 Amphetamine Screen, Urine NONE DETECTED ()?? 12/24/2024 18:06 Opiate Screen, Urine NONE DETECTED ()?? 12/24/2024 18:06 Acetaminophen Level <5 mg/L (Low) 12/24/2024 13:51 ? UA/URINALYSIS Appear/Color, Urine LIGHT YELLOW ()?? 12/24/2024 18:06 Specific [place], Urine 1.032 (High)?? 12/24/2024 18:06 pH, Urine 6.0 ()?? 12/24/2024 18:06 Albumin, Urine TRACE (Abnormal)?? 12/24/2024 18:06 Glucose, Urine NEGATIVE ()?? 12/24/2024 18:06 Ketones, Urine NEGATIVE ()?? 12/24/2024 18:06 Bilirubin, Urine NEGATIVE ()?? 12/24/2024 18:06 Hemoglobin, Urine NEGATIVE ()?? 12/24/2024 18:06 Nitrite, Urine NEGATIVE ()?? 12/24/2024 18:06 Leukocyte, Urine NEGATIVE ()?? 12/24/2024 18:06 Urobilinogen NORMAL mg/dL ()?? 12/24/2024 18:06 WBC's, Urine 1 /HPF ()?? 12/24/2024 18:06 RBC's, Urine NONE SEEN /HPF ()?? 12/24/2024 18:06 Mucus SLIGHT /LPF ()?? 12/24/2024 18:06 Hold Urine Culture Testing available 48 hours from time of collection. ()?? 12/24/2024 18:06 ? URINE OTHER Est Creatinine Clearance 54.33 mL/min ()?? 12/25/2024 02:50 ? VIROLOGY Influenza A PCR NEGATIVE ()?? 12/24/2024 14:13 Influenza B PCR NEGATIVE ()?? 12/24/2024 14:13 RSV PCR NEGATIVE ()?? 12/24/2024 14:13 COVID-19 PCR Specimen Source NASAL ()?? 12/24/2024 14:13 COVID-19 PCR Result NEGATIVE ()?? 12/24/2024 14:13 ? Microbiology ?? COVID-19, RSV, and Flu A/B, Rapid PCR?? Completed?? Source: Nasal Body Site: Nose Collected Dt/Tm: 12/24/2024 13:41 Last Updated Dt/Tm: 12/24/2024 15:38 ? Patient??discussed with attending physician ?? Buster Yu, DO Internal Medicine, PGY-3 Pager [phone] 30??minutes spent on discharge Patient Care team information Care Team Personnel Name: Gonzales Brennan MD Position: S Outreach Member Role: PCP Address: [address] [place] [phone] Telecom: Name: Mariam Woo RN Position: S RN Member Role: Primary Care Nurse Name: Rebecca San RN Position: S RN Member Role: Primary Care Nurse Name: Paula Pascual RN Position: [facility] Associate Professor Of Psychology Member Role: Primary Care Nurse Care Team Related Persons Name: LEW CM Name: EMMANUELLE RODARTE Name: HELENA BALBUENA Name: PRIYANKA BALBUENA Insurance Providers Guarantor name: SHANNON SHAVERN Health Plan Information #: 1 Payer: [employer] ADV PPO Payer Identifier: Member Number: [id number] Group Number: [id number] Subscriber Identifier: [id number] Relationship to Subscriber: self Coverage Type: Medicare PPO Coverage Verification Date: NA Telecom: NA Address: Health Plan Information #: 2 Payer: [employer] [facility] FULL Payer Identifier: NA Member Number: [id number] Group Number: NA Subscriber Identifier: [id number] Relationship to Subscriber: self Coverage Type: MEDICAID Coverage Verification Date: NA Telecom: NA Address:
--- OUTSIDE RECORDS SUMMARY | 2024-12-29 10:45 | XMS_ITS | Encounter Summary ---
Author Organization [employer] Address [address] [place] [address] 7[address] [place] [address] Care Team Providers Care Plant And Equipment Worker Name Role Phone Gonzales Brennan MD Primary Care Provider [phone] Reason for Referral * Imaging (Routine) - Pending Review Specialty Diagnoses / Procedures Referred By Thad t Referred To Contact Radiology Diagnoses Neck pain Procedures MR Cervical Spine w/ and w/o Contrast Luann Adrian MD [address] [place] [address] Phone: tel: fax: [address] Phone: tel: fax: Referral ID Status Reason Start Date Expiration Date V isits Requested Visits Authorized [id number] Pending Review 12/29/2024 12/29/2025 1 1 Reason for Visit * Reason Comments [facility] Follow[facility] Encounter Details Date Type Department Care Team (Late st Contact Info) Description 12/29/2024 10:45 AM EDT Office Visit [facility] & PEDS [address] [place], [place] [phone] Luann Adrian MD [address] [place], [place] [phone] NATHANIEL (acute kidney injury) (CMS/HCC) (Primary Dx); Essential hypertension; Back pain, unspecified back location, unspecified back pain laterality, unspecified chronicity; Chronic midline low back pain without sciatica; Atherosclerosis of [place] coronary artery of [place] heart without angina pectoris; Controlled type 2 diabetes with neuropathy (CMS/HCC); Neck pain Social History Tobacco Use Types Packs/Day Years [...] housing situation today? I have paolo medley 10/24/[address] you li ve. Do you have problems with any of the following? None of the above 10/24/2024 Food Insecurity Answer Date Recorded Within the past 12 months, y ou worried that your food would run out before you got money to buy more: Never True 10/24/2024 Within the past 12 months,th e food you bought just didn't last and you didn't have enough money to get more: Never True Transportation Answer Date Recorded In the past 12 months, has l ack of transportation kept you from medical appts, meetings, work or from getting things needed for daily living? No 10/24/2024 Utilities Answer Date Recorded In the past 12 months, has t he electric, gas, oil or water company threatened to shut off services in your home? No 10/24/2024 Depression Answer Date Recorded Patient Health Questionnaire-2 Score 3 10/24/2024 Internet Access Answer Date Recorded Internet Access Q1 Yes 10/24/2024 Internet Access Q2 Not on file 10/24/2024 Sex and Gender Information Value Date Recorded Sex Assigned at Male 02/24/2022 10:21 AM EDT Legal Sex Male 10:21 AM EDT Gender Identity Male 02/24/2022 10:21 AM EDT Sexual Orientation Straight 02/24/2022 10 :21 AM EDT documented as of this encounter Last Filed Vital Signs Vital Sign Reading Time Taken Comments Blood Pressure 116/74 12/29/2024 10:54 AM EDT Pulse 86 12/29/2024 10:54 AM EDT Temperature 36.5 C (97.7 F) 12/29/2024 10:54 AM EDT Respiratory Rate 18 12/29/2024 10:54 AM EDT Oxygen Saturation 96% 12/29/2024 10:54 AM EDT Inhaled Oxygen Concentration - - Weight 100 kg (221 lb 6.4 oz) 12/29/2024 10:54 A M EDT Height 174 cm (5' 8.5 ) 12/29/2024 10:54 AM EDT Body Mass Index 33.17 12/29/2024 10:54 AM EDT documented in this encounter Progress Notes * Luann Adrian MD - 12/29/2024 10:45 AM EDT Subjective Patient ID: Sean Hinkle is a 69 y.o. male who presents for [facility] Follow[facility]. History of Present Illness The patient is a male with a history of hypertension, diabetes, and recent cervical spine surgery presenting for follow-up after a hospitalization for hypotension and syncope. He reports being admitted to the ICU on Thursday, December 24, after fainting twice at home. He states he felt fine before the incident and had no prior symptoms. His daughter called for an ambulance, and her boyfriend supported him until emergency services arrived. During his hospital stay, his blood pressure bottomed out, leading to his ICU admission. He discharged himself against medical advice after someone accused him of being a drug addict. He denies drug use and emphasizes that he has a daughter who struggles with heroin addiction. Upon discharge, he was instructed to stop taking his blood pressure medications, which he has not taken for two days. Since stopping his medications, he reports feeling weak one day with a blood pressure of 85/56. He denies any other syncopal episodes or dizziness. He mentions having a fall prior to his recent cervical spine surgery on November 04, which involved titanium implants at C3 and C4. He reports a little pain, but not bad from the surgery, noting significant improvement from his pre-operative pain. He expresses frustration with the hospital experience, particularly the drug addiction accusation, which prompted his self-discharge despite medical staff's desire to perform additional tests. He also mentions that his appointment with Dr. Mandel was canceled without his knowledge, causing confusion and concern. Medical History - Acute kidney injury due to hypovolemia - Syncope with hospitalization in ICU on December 24, 2024 - Hypertension, currently managed with medication - Diabetes mellitus, managed without insulin - Coronary artery disease, managed with isosorbide Surgical History - Cervical spine surgery on November 04, 2024, involving titanium implants at C3-C4 levels Medications and Supplements - Hydroxyzine 50 mg - Aspirin 81 mg - Atorvastatin 40 mg - Fampridine - Fluoxetine - Lasix - Isosorbide - Dosage changed from 60 mg to 30 mg - Lisinopril - Methimazole - Metoprolol - Held due to low heart rate - Tamsulosin - Vitamin D3 - Lansoprazole - Prevacid - Celebrex - Baclofen - Esomeprazole - Docusate - Pepcid - Trelegy Ellipta - Gabapentin - Lidocaine patches - Nitrostat - Oxycodone - Glipizide - Fluticasone - Hydrochlorothiazide - Stopped due to low blood pressure - Naloxone - Narcan - Nitroglycerin - Cosmegen Patient hasn't taken blood pressure medications for two days due to hospital advice. Family History - Daughter: Heroin addiction Social History - Living Situation: Lives at home, daughter mentioned - Family Structure: Has a daughter - Substance Use: Denies drug use, states I don't do drugs - Social Support: Mentions having a best friend Review of Systems General: Positive for weakness. Cardiovascular: Positive for syncope, dizziness. Musculoskeletal: Positive for neck pain. Review of Systems Objective Visit Vitals BP 116/74 Pulse 86 Temp 97.7 ??F (36.5 ??C) (Oral) Resp 18 Ht 5' 8.5 (1.74 m) Wt 221 lb 6.4 oz (100 kg) SpO2 96% BMI 33.17 kg/m?? Smoking Status Every Day BSA 2.2 m?? Physical Exam Constitutional: General: He is not in acute distress. Appearance: He is obese. He is not ill-appearing. HENT: Head: Normocephalic and atraumatic. Nose: No congestion. Pulmonary: Effort: Pulmonary effort is normal. No respiratory distress. Breath sounds: Normal breath sounds. Musculoskeletal: Cervical back: Normal range of motion. Neurological: General: No focal deficit present. Mental Status: He is alert. Psychiatric: Mood and Affect: Mood normal. Vital Signs - Blood Pressure: 116/74 mmHg - Heart Rate: 87 bpm Laboratory, Imaging, and Diagnostic Test Results - Date: 12/24/2024 (Hospital admission) - Creatinine: 1.68 (elevated, indicating acute kidney injury) - Date: 12/29/2024 (Current visit) - Blood glucose: 126 mg/dL (morning) - Previous results: - Blood glucose: 116 mg/dL (chief bank examiner on 12/29/2024) Assessment/Plan Problem List Items Addressed This Visit Atherosclerosis of [place] coronary artery of [place] heart without angina pectoris Relevant Medications furosemide (Lasix) 40 MG tablet isosorbide mononitrate ER (Imdur) 30 MG 24 hr tablet oxyCODONE (Roxicodone) 5 MG immediate release tablet nitroglycerin (Nitrostat) 0.4 MG SL tablet Controlled type 2 diabetes with neuropathy ([facility]) Relevant Orders Home blood glucose meter Neck pain Relevant Medications oxyCODONE (Roxicodone) 5 MG immediate release tablet Other Relevant Orders MR Cervical Spine w/ and w/o Contrast Other Visit Diagnoses NATHANIEL (acute kidney injury) ([facility]) - Primary Relevant Medications furosemide (Lasix) 40 MG tablet Other Relevant Orders Basic Metabolic Panel Essential hypertension Blood pressure is on the low side Lisinopril dose decreased to 5 mg Metoprolol dose decreased to 12.5 mg once a day Relevant Medications furosemide (Lasix) 40 MG tablet isosorbide mononitrate ER (Imdur) 30 MG 24 hr tablet nitroglycerin (Nitrostat) 0.4 MG SL tablet Back pain, unspecified back location, unspecified back pain laterality, unspecified chronicity Relevant Medications oxyCODONE (Roxicodone) 5 MG immediate release tablet Chronic midline low back pain without sciatica Relevant Medications oxyCODONE (Roxicodone) 5 MG immediate release tablet Mr. Amos is a patient with a history of hypertension, diabetes, and recent cervical spine surgerypresenting after a hospital admission for syncope and hypotension, complicated by acute kidney injury. Syncope and Hypotension Assessment: Patient experienced syncope on Thursday, December 24, with blood pressure bottoming out. He was admitted to the ICU for low blood pressure. Current blood pressure is 116/74, improved from a recent reading of 85/56. Patient reports feeling weak but denies further syncopal episodes since stopping blood pressure medications. The hypotensive episode likely led to acute kidney injury, with creatinine elevated to 1.68. Differential diagnoses include medication-induced hypotension, dehydration, and cardiac causes. Plan: - Hold all blood pressure medications except isosorbide, reduced from 60 mg to 30 mg - Instruct patient to hold all blood pressure medications if diastolic pressure falls below 60 mmHg - Order new blood pressure cuff for home monitoring - Check kidney function and glucose levels - Follow up with Dr. Mckeon on January 02 for blood pressure reassessment - Educate patient on symptoms of hypotension and when to seek medical attention Acute Kidney Injury Assessment: Patient developed acute kidney injury, likely due to hypotension and possible hypovolemia during recent hospitalization. Creatinine was elevated to 1.68. Plan: - Order comprehensive metabolic panel to reassess kidney function - Adjust medications as needed based on kidney function results - Educate patient on importance of maintaining adequate hydration Diabetes Mellitus Assessment: Patient reports morning blood glucose of 116 mg/dL. Current diabetes management includes glipizide. Plan: - Order new glucometer for home blood glucose monitoring - Continue current diabetes medications - Check glucose levels (likely HbA1c and fasting glucose) - Educate patient on importance of regular blood glucose monitoring Cervical Spine Surgery Follow-up Assessment: Patient underwent cervical spine surgery (C3-C4 fusion with titanium implant) on November 04. Reports some pain but overall improvement from pre- surgical state. Plan: - Order MRI of cervical spine as recommended by hospital for clearance - Review recent x-rays and MRI results when available documented in this encounter Plan of Treatment Upcoming Encounters Date Type Department Care Team (Late st Contact Info) Description 12/30/2024 9:00 AM EDT Office Visit [facility] ADULT DENTAL [address] [place] [address] Diaz Merida DMD [address] [place] [address] Arrived 01/02/2025 10:15 AM EDT Office Visit [facility] MED & PEDS [address] [place] [address] Gonzales Brennan MD [address] [place] [address] 01/25/2025 9:00 AM EDT Office Visit [facility] MED & PEDS [address] [place] [address] Gonzales Brennan MD [address] [place] [address] 02/14/2025 9:00 AM EDT Clinical Support [facility] PEDS [address] [place] [address] Marisol Thomas, RN [address] [place], [place] [phone] Scheduled Orders Name Type Priority Associated Diagnoses Orde r Schedule Basic Metabolic Panel Lab Routine NATHANIEL (acute kidney injury) ([facility]/HCC) Expected: 12/29/2024 (Approximate), Expires: 12/29/2025 MR Cervical Spine w/ and w/o Contrast Imaging Routine Neck pain Expected: 12/29/2024, Expires: 12/29/2025 documented as of this encounter Visit Diagnoses Diagnosis NATHANIEL (acute kidney injury) ([facility])- Primary Essential hypertension Unspecified essential hypertension Back pain, unspecified back location, unspecified back pain laterality, unspecified chronicity Chronic midline low back pain without sciatica Atherosclerosis of [place] coronary artery of [place] heart without angina pectoris Controlled type 2 diabetes with neuropathy ([facility]) Type II or unspecified type diabetes mellitus with neurological manifestations, not stated as uncontrolled Neck pain Cervicalgia documented in this encounter Additional Health Concerns Assessment Noted Time PHQ-9 Depression Total Score: 0 07/11/19 23 3:46 PM EDT documented as of this encounter Care Teams Plant And Equipment Worker Relationship Specialty Start Date End Date Gonzales Brennan MD [address] [place] [address] PCP - General Internal Medicine 04/27/18 documented as of this encounter
--- OUTSIDE RECORDS SUMMARY | 2024-12-30 08:38 | XMS_ITS | Encounter Summary ---
Author Organization [facility] [facility] Address [address] [place] [address] Phone Care Team Providers Care Assistant Superintendent For Curriculum Name Role Phone Gonzales Brennan MD Primary Care Pr ovider Jonah Umanzor MD Unavailable [phone] Encounter Details Date Type Department Care Team (Late st Contact Info) Description 04/23/2020 Procedure Pass [facility] PERIOPERATIVE DEPT [address] [place] [address] Social History Tobacco Use Types Packs/Day Years Used Date Smoking Tobacco: Every Day Cigarettes Smokeless Tobacco: Never Alcohol Use Standard Drinks/Week Comments Not Currently 0 (1 standard drink = 0.6 oz pur e alcohol) Sex and Gender Information Value Date Recorded Sex Assigned at Male 12/06/2019 2:07 PM EDT Legal Sex Male 1:59 PM EDT Gender Identity Male 12/06/2019 2:07 PM EDT Sexual Orientation Straight 12/06/2019 2: 07 PM EDT documented as of this encounter Plan of Treatment Not on file documented as of this encounter Visit Diagnoses Not on filedocumented in this encounter Care Teams Assistant Superintendent For Curriculum Relationship Specialty Start Date End Date Gonzales Brennan MD [address] [facility] [address] [place] [address] PCP - General Internal Medicine 03/13/20 Jonah Umanzor MD [address] [place] [address] [address] [place] [address] Cardiology 04/16/20 documented as of this encounter Additional Source Comments The information contained in this document represents components of the legal health record. It is not the complete legal health record.[facility]
--- OUTSIDE RECORDS SUMMARY | 2024-12-30 08:38 | XMS_ITS | Encounter Summary ---
Author Organization [facility] Address [address] [place] [address] Phone Care Team Providers Care Other Spatial Scientist Name Role Phone Gonzales Brennan MD Primary Care Pr ovider Jonah Umanzor MD Unavailable [phone] Encounter Details Date Type Department Care Team (Late st Contact Info) Description 05/02/2020 Procedure Pass [facility] PERIOPERATIVE DEPT [address] [place] [address] Social History Tobacco Use Types [...] on filedocumented in this encounter Care Teams Other Spatial Scientist Relationship Specialty Start Date End Date Gonzales Brennan MD [address] [facility] [address] [place] [address] PCP - General Internal Medicine 03/13/20 Jonah Umanzor MD [address] [place] [address] [address] [place] [address] Cardiology 04/16/20 documented as of this encounter Additional Source Comments The information contained in this document represents components of the legal health record. It is not the complete legal health record.[facility]
--- OUTSIDE RECORDS SUMMARY | 2024-12-30 08:39 | XMS_ITS | Encounter Summary ---
Author Organization [employer] Address [address] [facility] 7 [place] [address] Care Team Providers Care Engineer Byproduct Name Role Phone Gonzales Brennan MD Primary Care Provider [phone] Reason for Visit * Reason Comments Transition Of Care (Tcm) HDF scheduled a nd SDOH screening completed on 10/24/24 Encounter Details Date Type Department Care Team (Late st Contact Info) Description 12/27/2024 Patient Outreach [facility] [address] [place] [address] Gonzales Brennan MD [address] [place] [id number] Transition Of Care (Tcm) (HDF scheduled and SDOH screening completed on 10/24/24 ) Social History Tobacco Use Types Packs/Day Years [...] as of this encounter Progress Notes * Haley Guillen RN - 12/27/2024 9:46 AM EDT TC to pt to status check. No answer. VM left instructing pt to return call to office. documented in this encounter Miscellaneous Notes * Significant Event - Laura Huddleston - 12/27/2024 9:47 AM EDT 12/27/24 0947 Hospital Discharges and Admission for [facility] Type of Visit Hospital Admission Date of Admission/Visit 12/24/24 Date of Discharge 12/25/24 Facility [facility] Diagnosis syncope Disposition Discharged Home Follow-Up Actions Follow-Up Needed Provider appointment Follow-Up Outcome Booked Appointment Initial Contact Date 12/27/24 GHADA Salas placed outbound call to patient for HDF outreach. Patient's name and were confirmed. Patient educated on the importance of follow up with provider following inpatient admission. Patient offered an HDF appt. Patient is agreeable to an appointment and has been scheduled for 01/02/25 at 10:15am with Dr. Brennan. Insurance verified prior to scheduling. Patient also notified that a health center pharmacist will be reaching out to them via telephone prior to their scheduled appointmentin order to review their medications in preparation for their appointment. Patient advised to bringto appointment a photo id and insurance card. Patient provided with education on contacting the Health Center with any questions or concerns prior to the scheduled appointment. Patient educated on extended clinic hours on Mondays and Wednesdays, and Walk-In Urgent Care Located in [facility]. Patient provided with after-hours line for [facility], , which offer night time triage service and option to transfer to data conversion operator provider if needed. CC scanned discharge summary into patient's chart. Biggest concern for appointment at this time is patient is requesting a call back in regards to BP medication, states has some further questions and concerns. Appropriate screenings completed in anticipation of appointment. documented in this encounter Plan of Treatment Upcoming Encounters Date Type Department Care Team (Late st Contact Info) Description 12/30/2024 9:00 AM EDT Office Visit [facility] ADULT DENTAL [address] [place] [address] Diaz Merida DMD [address] [place] [address] Arrived 01/02/2025 10:15 AM EDT Office Visit [facility] MED & PEDS [address] [place] [address] Gonzales Brennan MD [address] [place] [address] 01/25/2025 9:00 AM EDT Office Visit [facility] MED & PEDS [address] [place] [address] Gonzales Brennan MD [address] [place] [address] 02/14/2025 9:00 AM EDT Clinical Support [facility] MED & PEDS [address] [place] [address] Marisol Thomas RN [address] [place] [address] documented as of this encounter Visit Diagnoses Not on filedocumented in this encounter Additional Health Concerns Assessment Noted Time PHQ-9 Depression Total Score: 0 07/11/19 23 3:46 PM EDT documented as of this encounter Care Teams Engineer Byproduct Relationship Specialty Start Date End Date Gonzales Brennan MD [address] [place] [address] PCP - General Internal Medicine 04/27/18 documented as of this encounter
--- OUTSIDE RECORDS SUMMARY | 2024-12-30 08:39 | XMS_ITS | Encounter Summary ---
Author Organization [employer] Address [address] [facility] 7t [place] [address] Care Team Providers Care Telegraphic Typewriter Mechanic Name Role Phone Gonzales Brennan MD Primary Care Provider [phone] Encounter Details Date Type Department Care Team (Late st Contact Info) Description 12/01/2024 Telephone [facility] [address] [place] [address] Gonzales Brennan MD [address] [place] [address] Social History Tobacco Use Types Packs/Day Years [...] Description 12/30/2024 9:00 AM EDT Office Visit [facility] ADULT DENTAL [address] [place] [address] Diaz Merida DMD [address] [place] [address] Arrived 01/02/2025 10:15 AM EDT Office Visit [facility] MED & PEDS [address] [place] [address] Gonzales Brenann MD [address] [place] [address] 01/25/2025 9:00 AM EDT Office Visit [facility] MED & PEDS [address] [place] [address] Gonzales Brennan MD [address] [place] [address] 02/14/2025 9:00 AM EDT Clinical Support [facility] MED & PEDS [address] [place] [address] Marisol Thomas RN [address] [place] [address] documented as of this encounter Visit Diagnoses Not on filedocumented in this encounter Additional Health Concerns Assessment Noted Time PHQ-9 Depression Total Score: 0 07/11/19 23 3:46 PM EDT documented as of this encounter Care Teams Telegraphic Typewriter Mechanic Relationship Specialty Start Date End Date Gonzales Brennan MD [address] [place] [address] PCP - General Internal Medicine 04/27/18 documented as of this encounter
--- OUTSIDE RECORDS SUMMARY | 2024-12-30 08:39 | XMS_ITS | Encounter Summary ---
Author Organization [employer] Address 75 [facility] 7 [place] [address] Care Team Providers Care Perforator Operator Name Role Phone Gonzales Brennan MD Primary Care Provider [phone] Reason for Visit * Reason Onset Date Comments Hospital Follow-up 12/27/2024 Encounter Details Date Type Department Care Team ([facility] st Contact Info) Description 12/27/2024 Telephone [facility] MED & PEDS [address] [place], [place] [phone] Gonzales Brennan MD [address] [place] [address] Hospital Follow-up Social History Tobacco Use Types [...] encounter Miscellaneous Notes * Telephone Encounter - Isaac Cleary - 12/27/2024 8:04 AM EDT Tc from pt requesting a HDF appt. [place] [facility] [place] of admission: 12/24 Discharge date: 12/25 Diagnosed: pt in icu unit , checked himself out against physican , pt states he was in hospital dueto his bp being extremely low 85/50 *Send message to [facility] Clinical Care Coordinators documented in this encounter Plan of Treatment Upcoming Encounters Date Type Department Care Team ([facility] st Contact Info) Description 12/30/2024 9:00 AM EDT Office Visit [facility] ADULT DENTAL [address] [place] [address] Diaz Merida DMD 505 [place] [address] Arrived 01/02/2025 10:15 AM EDT Office Visit [facility] MED & PEDS [address] [place] [address] Gonzales Brennan MD [address] [place] [address] 01/25/2025 9:00 AM EDT Office Visit [facility] MED & PEDS [address] [place] [address] Gonzales Brennan MD [address] [place] [address] 02/14/2025 9:00 AM EDT Clinical Support [facility] MED & PEDS [address] [place] [address] Marisol Thomas, LEVI 505 [place] [address] documented as of this encounter Visit Diagnoses Not on filedocumented in this encounter Additional Health Concerns Assessment Noted Time PHQ-9 Depression Total Score: 0 07/11/19 23 3:46 PM EDT documented as of this encounter Care Teams Perforator Operator Relationship Specialty Start Date End Date Gonzales Brennan MD [address] [place] [address] PCP - General Internal Medicine 04/27/18 documented as of this encounter
--- OUTSIDE RECORDS SUMMARY | 2024-12-30 08:39 | XMS_ITS | Encounter Summary ---
Author Organization [employer] Address 75 [facility] 7 [place] [address] Care Team Providers Care Digital Campaign Specialist Name Role Phone Gonzales Brennan MD Primary Care Provider [phone] Reason for Visit * Reason Onset Date Comments Med Refill 11/29/2024 Medication Question 11/29/2024 Encounter Details Date Type Department Care Team ([facility] st Contact Info) Description 11/29/2024 Telephone [facility] CHC MED & PEDS [address] [place] [address] Gonzales Brennan MD [address] [place] [address] Med Refill; Medication Question Social History Tobacco Use Types Packs/Day Years [...] encounter Miscellaneous Notes * Telephone Encounter - Jackie Lucero - 11/29/2024 4:19 PM EDT TC from pt requesting medication refill. Medications needing refill : oxyCODONE (Roxicodone) 5 MG immediate release tablet To be sent to: [facility] - [address] Pt stated he picked up script today but got home and it is not in bag. Pt stated he searched his car but medication is nowhere to be found. Contact pt at [phone] documented in this encounter Plan of Treatment Upcoming Encounters Date Type Department Care Team ([facility] st Contact Info) Description 12/30/2024 9:00 AM EDT Office Visit [facility] ADULT DENTAL [address] [place] [address] Diaz Merida DMD 505 [place] [address] Arrived 01/02/2025 10:15 AM EDT Office Visit [facility] MED & PEDS [address] [place] [address] Gonzales Brennan MD [address] [place] [address] 01/25/2025 9:00 AM EDT Office Visit [facility] MED & PEDS [address] [place] [address] Gonzales Brennan MD [address] [place] [address] 02/14/2025 9:00 AM EDT Clinical Support [facility] MED & PEDS [address] [place] [address] Marisol Thomas, LEVI 505 [place] [address] documented as of this encounter Visit Diagnoses Not on filedocumented in this encounter Additional Health Concerns Assessment Noted Time PHQ-9 Depression Total Score: 0 07/11/19 23 3:46 PM EDT documented as of this encounter Care Teams Digital Campaign Specialist Relationship Specialty Start Date End Date Gonzales Brennan MD [address] [place] [address] PCP - General Internal Medicine 04/27/18 documented as of this encounter
--- OUTSIDE RECORDS SUMMARY | 2024-12-30 08:39 | XMS_ITS | Encounter Summary ---
Author Organization [employer] Address 75 [facility] 7t [place] [address] Care Team Providers Care Medical Services Coordinator Name Role Phone Gonzales Brennan MD Primary Care Provider [phone] Encounter Details Date Type Department Care Team (Latest Contact Info) Description 12/29/2024 Travel Social History Tobacco Use Types Packs/Day [...] Description 12/30/2024 9:00 AM EDT Office Visit [facility] ADULT DENTAL [address] [place] [address] Diaz Merida DMD 505 [place] [address] Arrived 01/02/2025 10:15 AM EDT Office Visit [facility] MED & PEDS [address] [place] [address] Gonzales Brennan MD 505 [place] [address] 01/25/2025 9:00 AM EDT Office Visit [facility] MED & PEDS [address] [place] [address] Gonzales Brennan MD 505 [place] [address] 02/14/2025 9:00 AM EDT Clinical Support [facility] MED & PEDS [address] [place] [address] Mraisol Thomas, LEVI [address] [place] [address] documented as of this encounter Visit Diagnoses Not on filedocumented in this encounter Additional Health Concerns Assessment Noted Time PHQ-9 Depression Total Score: 0 07/11/19 23 3:46 PM EDT documented as of this encounter Care Teams Medical Services Coordinator Relationship Specialty Start Date End Date Gonzales Brennan MD [address] [place] [address] PCP - General Internal Medicine 04/27/18 documented as of this encounter
--- OUTSIDE RECORDS SUMMARY | 2024-12-30 08:39 | XMS_ITS | Clinical Summary ---
Author Organization [employer] [facility] Address [address] [place] [address] Phone Care Team Providers Care Customer Care Team Coach Name Role Phone Gonzales Brennan MD Primary Care Pr ovider Jonah Umanzor MD Unavailable [phone] Allergies Active Allergy Reactions Criticality Noted Date Comments Penicillins Anaphylaxis High 04/16/2020 Medications beclomethasone (QVAR) 40 mcg/actuation inhaler Inhale 2 puffs into the lungs 2 (two) times a day. Active aspirin 81 MG EC tablet Take 81 mg by mouth daily. Active atorvastatin (LIPITOR) 40 MG tablet Take 40 mg by mouth nightly at bedtime. Active metFORMIN (GLUCOPHAGE) 1000 MG tablet Take 1,000 mg by mouth 2 (two) times a day with meals. Active FLUoxetine (PROZAC) 40 MG capsule Take 40 mg by mouth daily. Active lisinopril-hydro CHLOROthiazide (PRINZIDE,ZESTOR ETIC) 10-12.5 mg per tablet Take 1 tablet by mouth daily. Active fluticasone propionate (FLOVENT HFA) 220 mcg/actuation inhaler Inhale 1 puff into the lungs 2 (two) times a day. Active gabapentin (NEURONTIN) 300 MG capsule Take 600 mg by mouth 3 (three) times a day. Active albuterol 90 mcg/actuation inhaler Inhale 2 puffs into the lungs every 6 (six) hours as needed for wheezing. Active fenofibrate (TRICOR) 48 MG tablet Take 48 mg by mouth daily. Active methIMAzole (TAPAZOLE) 5 MG tablet Take 5 mg by mouth daily. Active hydrOXYzine (ATARAX) 50 MG tablet Take 50 mg by mouth nightly at bedtime. Active tamsulosin (FLOMAX) 0.4 mg Cap Take 0.4 mg by mouth nightly at bedtime. Active isosorbide mononitrate (IMDUR) 60 MG 24 hr tablet Take 60 mg by mouth daily. Active Social History Tobacco Use Types Packs/Day Years Used Date Smoking Tobacco: Every Day Cigarettes Smokeless Tobacco: Never Alcohol Use Standard Drinks/Week Comments Not Currently 0 (1 standard drink = 0.6 oz pur e alcohol) Education Answer Date Recorded Are you interested in more education? Not on chapo e 08/22/2022 Are you concerned about learning? Not on file 08/22/2022 No 08/22/2022 No 08/22/2022 Digital Access Answer Date Recorded No 09/17/2022 No 09/17/2022 No 09/17/2022 Reliable internet access at home? Not on file 09/17/2022 Device with a working camera? Not on file Sex and Gender Information Value Date Recorded Sex Assigned at Male 12/06/2019 2:07 PM EDT Legal Sex Male 1:59 PM EDT Gender Identity Male 12/06/2019 2:07 PM EDT Sexual Orientation Straight 12/06/2019 2: 07 PM EDT Last Filed Vital Signs Vital Sign Reading Time Taken Comments Blood Pressure 150/71 05/02/2020 2:50 PM EST Pulse 69 05/02/2020 2:28 PM EST Temperature 36.3 C (97.3 F) 05/02/2020 2:28 PM EST Respiratory Rate 18 05/02/2020 2:28 PM EST Oxygen Saturation 94% 05/02/2020 2:28 PM EST Inhaled Oxygen Concentration - - Weight 108.9 kg (240 lb) 05/02/2020 6:44 AM EST Height 168.9 cm (5' 6.5 ) 04/23/2020 8:17 AM EST Body Mass Index 38.16 04/23/2020 8:17 AM EST Plan of Treatment Health Maintenance Due Date Last Done Comments CREATININE LEVEL 1954 LIPID PANEL 1954 POTASSIUM LEVEL 1954 DEPRESSION SCREENING 1966 SMOKING Hx and SMOKELESS TOBACCO SCREENING 1967 HEPATITIS C SCREENING 1972 COLOGUARD 1999 COLONOSCOPY 1999 COLORECTAL CANCER SCREENING 1999 FIT TEST 1999 FOBT 1999 SIGMOIDOSCOPY 1999 VIRTUAL COLONOSCOPY 1999 PNEUMOCOCCAL VACCINES (50+ years) (2 of 2 - PCV) 11/19/2012 11/20/2011 ZOSTER VACCINES (2 of 3) 10/18/2015 08/23/2015 ABDOMINAL AORTIC ANEURYSM (AAA) SCREENING 2019 Adult Td,Tdap Booster 08/28/2023 08/27/2013, 012 INFLUENZA VACCINE (#1) 2024 , 04/14/2019, 02/23/2017, Additional history exists COVID-19 VACCINE (3 - season) 2024 07/25/2020, 06/27/2020 RSV VACCINE (1 - 1-dose 75+ series) 2029 HEPATITIS A VACCINES Aged Out No long er eligible based on patient's age to complete this topic HIB VACCINES Aged Out No longer eligi ble based on patient's age to complete this topic MENINGOCOCCAL VACCINES (ACWY) Aged Out No longer eligible based on patient's age to complete this topic MENINGOCOCCAL VACCINES (B) Aged Out N o longer eligible based on patient's age to complete this topic Medical Devices Not on file Insurance #1 [place] [address] MEDICARE PART A & B [employer] FULL MEDICARE PART A & B [employer] FULL MEDICARE PART A & B [employer] [facility] FULL MEDICARE PART A & B FULL MEDICARE PART A & B [employer] [facility] FULL #1 [place] [address] MEDICARE PART A & B FULL #[address] [place] [address] MEDICARE PART A & B FULL #[address] [place] [address] MEDICARE PART A & B FULL #[address] [place] [address] MEDICARE PART A & B [facility] FULL Care Teams Customer Care Team Coach Relationship Specialty Start Date End Date Gonzales Brennan MD [address] [place] [address] 1 [place] [address] PCP - General Internal Medicine 03/13/20 Jonah Umanzor MD [address] [place] [address] [address] [place] [address] Cardiology 04/16/20 Additional Source Comments The information contained in this document represents components of the legal health record. It is not the complete legal health record.[facility]
--- OUTSIDE RECORDS SUMMARY | 2024-12-30 08:39 | XMS_ITS | Encounter Summary ---
Author Organization [employer] Address 75 [facility] 7t [place] [address] Care Team Providers Care Manager Local Name Role Phone Gonzales Brennan MD Primary Care Provider [phone] Reason for Visit * Reason Onset Date Comments returning call 09/02/2024 Encounter Details Date Type Department Care Team ([facility] st Contact Info) Description 09/02/[address] [facility] ADULT DENTAL [address] [place], [place] [phone] Diaz Merida, DMD [address] [place] [address] returning call Social History Tobacco Use Types [...] Description 12/30/2024 9:00 AM EDT Office Visit [facility] ADULT DENTAL 505 [place] [address] Diaz Merida DMD [address] [place] [address] Arrived 01/02/2025 10:15 AM EDT Office Visit [facility] MED & PEDS [address] [place] [address] Gonzales Brennan MD [address] [place] [address] 01/25/2025 9:00 AM EDT Office Visit [facility] MED & PEDS [address] [place] [address] Gonzales Brennan MD 505 [place] [address] 02/14/2025 9:00 AM EDT Clinical Support [facility] MED & PEDS [address] [place] [address] Marisol Thomas, LEVI [address] [place] [address] documented as of this encounter Visit Diagnoses Not on filedocumented in this encounter Additional Health Concerns Assessment Noted Time PHQ-9 Depression Total Score: 0 07/11/19 23 3:46 PM EDT documented as of this encounter Care Teams Manager Local Relationship Specialty Start Date End Date Gonzales Brennan MD [address] [place] [address] PCP - General Internal Medicine 04/27/18 documented as of this encounter
--- OUTSIDE RECORDS SUMMARY | 2024-12-30 08:39 | XMS_ITS | Encounter Summary ---
Author Organization [employer] Address 75 [facility] 7 [place] [address] Care Team Providers Care Rail Operator Name Role Phone Gonzales Brennan MD Primary Care Provider [phone] Reason for Visit * Reason Comments Transition Of Care (Tcm) HDF unscheduled LVM Encounter Details Date Type Department Care Team ([facility] st Contact Info) Description 12/27/2024 Patient Outreach [facility] MEDICINE [address] [place] [address] Gonzales Brennan MD [address] [place] [phone] Transition Of Care (Tcm) (HDF unscheduled LVM ) Social History Tobacco Use Types Packs/Day [...] as of this encounter Miscellaneous Notes * Significant Event - Laura Huddleston - 12/27/2024 8:24 AM EDT 12/27/24 0824 Hospital Discharg[facility] Hospital Admission Date of Admission/Visit 12/24/24 Date of Discharge 12/25/24 Facility [facility] Diagnosis Syncope Disposition Discharged Home Follow-Up Actions Follow-Up Needed Provider appointment Follow-Up Outcome Left Voicemail Initial Contact Date 12/27/24 CC Laura Salas placed outbound call to patient for HDF outreach. CC placing call to offer patient with an HDF appointment with provider. No answer at this time. Patient's name and were not confirmed. CC left detailed message educating patient on importance of following up with provider following an inpatient admission. Provided contact information requesting a call back in order to schedule theHDF appointment. Patient educated via voicemail on extended clinic hours on Mondays and Wednesdays,and Walk-In Urgent Care Located in [facility] of [facility]. Patient provided with after-hours line for [facility], , which offer night time triage service and option to transfer to construction coordinator provider if needed. CC scanned discharge summary into patient's chart. CC will place additional outreach call within2-5 business days. documented in this encounter Plan of Treatment Upcoming Encounters Date Type Department Care Team (Late st Contact Info) Description 12/30/2024 9:00 AM EDT Office Visit [facility] ADULT DENTAL [address] [place] [address] Diaz Merida DMD [address] [place] [address] Arrived 01/02/2025 10:15 AM EDT Office Visit [facility] MED & PEDS [address] [place] [address] Gonzales Brennan MD [address] [place] [address] 01/25/2025 9:00 AM EDT Office Visit [facility] MED & PEDS [address] [place] [address] Gonzales Brennan MD [address] [place] [address] 02/14/2025 9:00 AM EDT Clinical Support [facility] MED & PEDS [address] [place] [address] Marisol Thomas, LEVI [address] [place] [address] documented as of this encounter Visit Diagnoses Not on filedocumented in this encounter Additional Health Concerns Assessment Noted Time PHQ-9 Depression Total Score: 0 07/11/19 23 3:46 PM EDT documented as of this encounter Care Teams Rail Operator Relationship Specialty Start Date End Date Gonzales Brennan MD [address] [place] [address] PCP - General Internal Medicine 04/27/18 documented as of this encounter
--- OUTSIDE RECORDS SUMMARY | 2024-12-30 08:39 | XMS_ITS | Encounter Summary ---
Author Organization [employer] Address 75 [facility] 7t [place] [address] Care Team Providers Care Manager Party Name Role Phone Gonzales Brennan MD Primary Care Provider [phone] Encounter Details Date Type Department Care Team ([facility] st Contact Info) Description 12/02/2023 Orders Only [facility] CHC MED & PEDS [address] [place], [place] [phone] Gonzales Brennan MD [address] [place], [place] [phone] Neck pain (Primary Dx) Social History Tobacco [...] AM EDT Office Visit [facility] ADULT DENTAL [address] [place] [address] Diaz Merida DMD [address] [place] [address] Arrived 01/02/2025 10:15 AM EDT Office Visit [facility] MED & PEDS [address] [place] [address] Gonzales Brennan MD [address] [place] [address] 01/25/2025 9:00 AM EDT Office Visit [facility] MED & PEDS [address] [place] [address] Gonzales Brennan MD [address] [place] [address] 02/14/2025 9:00 AM EDT Clinical Support [facility] MED & PEDS [address] [place] [address] Marisol Thomas RN [address] [place] [address] Scheduled Orders Name Type Priority Associated Diagnoses [...] PM EDT Narrative 01/25/2024 3:47 PM EDT [place] [address] XRay Report Signed Patient: Sean Hinkle MR#: [id number] 2 : 1955 Acct:[id number] Age/Sex: 68 / M ADM Date: 12/03/23 Loc: JOAN Attending Dr: Gonzales Brennan MD Ordering Physician: Gonzales Brennan MD Date of Service: 12/03/23 Procedure(s): XR cervical spine 3V Accession Number(s): [id number] cc: Gonzales Brennan MD EXAMINATION: XR CERVICAL [...] 01/25/24 1544 DD/ 1338 TD/TT: 12/03/23 1350 Interpretive Naturalist: Procedure Note Donotuseinterpreter, Image - 01/25/2024 [place] [address] XRay Report Signed Patient: Sean HinkleMR#: [id number] 2 : 5Acct:[id number] Age/Sex: 68 / MADM Date: 12/03/23 Loc: [facility] Attending Dr: Gonzales Brennan MD Ordering Physician: Gonzales Brennan MD Date of Service: 12/03/23 Procedure(s): XR cervical spine 3V Accession Number(s): [id number] cc: Gonzales Brennan MD EXAMINATION: XR CERVICAL [...] 01/25/24 1544 DD/ 1338 TD/TT: 12/03/23 1350 Interpretive Naturalist: us Gonzales Brennan MD IMG XR PROCEDURES Final Res ult documented in this encounter Visit Diagnoses Diagnosis Neck pain- Primary Cervicalgia documented in this encounter Additional Health Concerns Assessment Noted Time PHQ-9 Depression Total Score: 0 07/11/19 23 3:46 PM EDT documented as of this encounter Care Teams Manager Party Relationship Specialty Start Date End Date Gonzales Brennan MD [address] [place] [address] PCP - General Internal Medicine 04/27/18 documented as of this encounter
--- OUTSIDE RECORDS SUMMARY | 2024-12-30 08:39 | XMS_ITS | Encounter Summary ---
Author Organization [employer] Address 75 [facility] 7t [place] [address] Care Team Providers Care Conservation Worker Name Role Phone Gonzales Brennan MD Primary Care Provider [phone] Encounter Details Date Type Department Care Team ([facility] st Contact Info) Description 08/28/2023 Orders Only [facility] CHC MED & PEDS [address] [place], [place] [phone] Gonzales Brennan MD [address] [place] [address] Atherosclerosis of [place] coronary artery of [place] heart without angina pectoris (Primary Dx) Social [...] Description 12/30/2024 9:00 AM EDT Office Visit [facility] ADULT DENTAL [address] [place] [address] Diaz Merida DMD [address] [place] [address] Arrived 01/02/2025 10:15 AM EDT Office Visit [facility] MED & PEDS [address] [place] [address] Gonzales Brennan MD 505 [place] [address] 01/25/2025 9:00 AM EDT Office Visit [facility] MED & PEDS [address] [place] [address] Gonzales Brennan MD [address] [place] [address] 02/14/2025 9:00 AM EDT Clinical Support [facility] MED & PEDS [address] [place] [address] Marisol Thomas RN [address] [place] [address] documented as of this encounter Visit Diagnoses Diagnosis Atherosclerosis of [place] coronary artery of [place] heart without angina pectoris- Primary documented in this encounter Additional Health Concerns Assessment Noted Time PHQ-9 Depression Total Score: 0 07/11/19 23 3:46 PM EDT documented as of this encounter Care Teams Conservation Worker Relationship Specialty Start Date End Date Gonzales Brennan MD [address] [place] [address] PCP - General Internal Medicine 04/27/18 documented as of this encounter
--- OUTSIDE RECORDS SUMMARY | 2024-12-30 08:39 | XMS_ITS | Encounter Summary ---
Author Organization [employer] Address 75 [facility] 7 [place] [address] Care Team Providers Care Autism Motor Specialist Name Role Phone Gonzales Brennan MD Primary Care Provider [phone] Reason for Visit * Reason Onset Date Comments Hospital Follow-up 08/14/2023 Encounter Details Date Type Department Care Team ([facility] st Contact Info) Description 08/14/2023 Telephone [facility] MEDICINE [address] [place] [address] Gonzales Brennan MD [address] [place] [address] Hospital Follow-up Social History Tobacco Use Types [...] from pt requesting a HDF appt. [place] [facility] Date of admission: 07/29 Discharge date: 08/10 Diagnosed: Pneumonia documented in this encounter Plan of Treatment Upcoming Encounters Date Type Department Care Team (Late st Contact Info) Description 12/30/2024 9:00 AM EDT Office Visit [facility] ADULT DENTAL [address] [place] [address] Diaz Merida, CEDRICK [address] [place], [place] Arrived 01/02/2025 10:15 AM EDT Office Visit [facility] MED & PEDS [address] [place] [address] Gonzales Brennan MD [address] [place] [address] 01/25/2025 9:00 AM EDT Office Visit [facility] MED & PEDS [address] [place], [place] [phone] Gonzales Brennan MD [address] [place] [address] 02/14/2025 9:00 AM EDT Clinical Support [facility] MED & PEDS [address] [place] [address] Marisol Thomas, RN [address] [place] [address] documented as of this encounter Visit Diagnoses Not on filedocumented in this encounter Additional Health Concerns Assessment Noted Time PHQ-9 Depression Total Score: 0 07/11/19 23 3:46 PM EDT documented as of this encounter Care Teams Autism Motor Specialist Relationship Specialty Start Date End Date Gonzales Brennan MD [address] [place] [address] PCP - General Internal Medicine 04/27/18 documented as of this encounter
--- OUTSIDE RECORDS SUMMARY | 2024-12-30 08:39 | XMS_ITS | Encounter Summary ---
Author Organization [employer] Address [address] [facility] 7 [place] [address] Care Team Providers Care Nurse Sane Name Role Phone Gonzales Brennan MD Primary Care Provider [phone] Reason for Visit * Reason Onset Date Comments Request For Order(s) 12/01/2023 Encounter Details Date Type Department Care Team ([facility] st Contact Info) Description 12/01/2023 Telephone [facility] [address] [place] [address] Gonzales Brennan MD [address] [place] [phone] Request For Order(s) Social History Tobacco Use [...] 9:00 AM EDT Office Visit [facility] [address] [place] [address] Diaz Merida DMD [address] [place] [address] Arrived 01/02/2025 10:15 AM EDT Office Visit [facility] [address] [place] [address] Gonzales Brennan MD [address] [place] [address] 01/25/2025 9:00 AM EDT Office Visit [facility] [address] [place] [address] Gonzales Brennan MD [address] [place] [address] 02/14/2025 9:00 AM EDT Clinical Support [facility] [address] [place] [address] Marisol Thomas, LEVI [address] [place] [address] documented as of this encounter Visit Diagnoses Not on filedocumented in this encounter Additional Health Concerns Assessment Noted Time PHQ-9 Depression Total Score: 0 07/11/19 23 3:46 PM EDT documented as of this encounter Care Teams Nurse Sane Relationship Specialty Start Date End Date Gonzales Brennan MD [address] [place] [address] PCP - General Internal Medicine 04/27/18 documented as of this encounter
--- OUTSIDE RECORDS SUMMARY | 2024-12-30 08:39 | XMS_ITS | Clinical Summary ---
Author Organization [facility] Address [address] [place] [address] Care Team Providers Care Facer Operator Name Role Phone Unavailable Primary Care Provider Unavailabl e Surgical History Surgery Date Site/Laterality Comments OTHER SURGICAL HISTORY Right PROCEDURE: [place] RESCJ&BRONCHOPLASTY PFRMD TM LOBEC/SGMECTOMY Medical History Medical [...] 2004 Zoster Vaccines (1 of 2) 2004 Depression Screening 04/27/2024 COVID-19 Vaccine (2023-2 5 season) 2024 Influenza Vaccine (#1) 2024 RSV Immunization Adult Patie nts (1 [...] Documents on File Type Date Recorded Patient Attenuator Expl anation Health Care Decision (hx) 08/01/2021 AD CERDA DIRECTIVE Health Care Decision (hx) 08/01/2021 AD CERDA DIRECTIVE
--- OUTSIDE RECORDS SUMMARY | 2024-12-30 08:39 | XMS_ITS | Encounter Summary ---
Author Organization [employer] Address [address] [facility] 7t [place] [address] Care Team Providers Care Light Rail Signal Technician Name Role Phone Gonzales Brennan MD Primary Care Provider [phone] [phone] Encounter Details Date Type Department Care Team (Late st Contact Info) Description 12/02/2024 Telephone [facility] [address] [place] [address] Gonzales Brennan MD [address] [place] [address] Social History Tobacco Use Types Packs/Day Years [...] Description 12/30/2024 9:00 AM EDT Office Visit [facility] [address] [place] [address] Diaz Merida DMD [address] [place] [address] Arrived 01/02/2025 10:15 AM EDT Office Visit [facility] [address] [place] [address] Gonzales Brennan MD [address] [place] [address] 01/25/2025 9:00 AM EDT Office Visit [facility] [address] [place] [address] Gonzales Brennan MD [address] [place] [address] 02/14/2025 9:00 AM EDT Clinical Support [facility] [address] [place] [address] Marisol Thomas RN 505 [place] [address] documented as of this encounter Visit Diagnoses Not on filedocumented in this encounter Additional Health Concerns Assessment Noted Time PHQ-9 Depression Total Score: 0 07/11/19 23 3:46 PM EDT documented as of this encounter Care Teams Light Rail Signal Technician Relationship Specialty Start Date End Date Gonzales Brennan MD [address] [place] [address] PCP - General Internal Medicine 04/27/18 documented as of this encounter
--- OUTSIDE RECORDS SUMMARY | 2024-12-30 08:40 | XMS_ITS | Encounter Summary ---
Author Organization [employer] Address [address] [place] [address] 7 [place] [address] Care Team Providers Care Cement Block Maker Name Role Phone Gonzales Brennan MD Primary Care Provider [phone] Reason for Visit * Reason Comments Med Refill Encounter Details Date Type Department Care Team ([facility] Contact Info) Description 05/19/2022 Refill [facility] [address] [place], [place] [phone] Gonzales Brennan MD [address] [place], [place] [phone] Chronic midline low back pain without sciatica [...] Encounters Date Type Department Care Team (Late Contact Info) Description 12/30/2024 9:00 AM EDT Office Visit [facility] [address] [place] [address] Diaz Merida DMD [address] [place] [address] Arrived 01/02/2025 10:15 AM EDT Office Visit [facility] [address] [place], [place] [phone] Gonzales Brennan MD [address] [place] [address] 01/25/2025 9:00 AM EDT Office Visit [facility] [address] [place] [address] Gonzales Brennan MD [address] [place] [address] 02/14/2025 9:00 AM EDT Clinical Support [facility] [address] [place] [address] Marisol Thomas, LEVI [address] [place] [address] documented as of this encounter Visit Diagnoses Diagnosis Chronic midline low back pain without sciatica documented in this encounter Care Teams Cement Block Maker Relationship Specialty Start Date End Date Gonzales Brennan MD [address] [place] [address] PCP - General Internal Medicine 04/27/18 documented as of this encounter
--- OUTSIDE RECORDS SUMMARY | 2024-12-30 08:40 | XMS_ITS | Encounter Summary ---
Author Organization [employer] Address [address] [place] [address] 7 [place] [address] Care Team Providers Care Diesel Engine Assembler Name Role Phone Gonzales Brennan MD Primary Care Provider [phone] Encounter Details Date Type Department Care Team (Latest Contact Info) Description 12/03/2018 Abstract [facility] CONVERSIONS Dental, Provider, DDS Social [...] Care Team ( st Contact Info) Description 12/30/2024 9:00 AM EDT Office Visit [facility] [address] [place] [address] Diaz Merida DMD [address] [place] [address] Arrived 01/02/2025 10:15 AM EDT Office Visit [facility] [address] [place] [address] Gonzales Brennan MD [address] [place] [address] 01/25/2025 9:00 AM EDT Office Visit [facility] [address] [place] [address] Gonzales Brennan MD [address] [place] [address] 02/14/2025 9:00 AM EDT Clinical Support [facility] [address] [place] [address] Marisol Thomas RN [address] [place], [place] [phone] documented as of this encounter Visit Diagnoses Not on filedocumented in this encounter Care Teams Diesel Engine Assembler Relationship Specialty Start Date End Date Gonzales Brennan MD [address] [place] [address] PCP - General Internal Medicine 04/27/18 documented as of this encounter
--- OUTSIDE RECORDS SUMMARY | 2024-12-30 08:40 | XMS_ITS | Encounter Summary ---
Author Organization [employer] Address [address] [facility] 7 [place] [address] Care Team Providers Care Farmer General Name Role Phone Gonzales Brennan MD Primary Care Provider [phone] Reason for Visit * Reason Onset Date Comments Referral 05/04/2024 Encounter Details Date Type Department Care Team ([facility] st Contact Info) Description 05/04/2024 Telephone [facility] [address] [place] [address] Gonzales Brennan MD [address] [place] [address] Referral Social History Tobacco Use Types Packs/Day [...] PM EST Most recent notes faxed to [phone]. * Telephone Encounter - Pia Philip - 05/04/2024 3:12 PM EST [place] [facility] stating referral was received with CT scan but no office notes, Laura stated she needs notes on referral to be faxed over to them. [phone] documented in this encounter Plan of Treatment Upcoming Encounters Date Type Department Care Team (Late st Contact Info) Description 12/30/2024 9:00 AM EDT Office Visit [facility] [address] [place] [address] Diaz Merida DMD [address] [place] [address] Arrived 01/02/2025 10:15 AM EDT Office Visit [facility] [address] [place] [address] Gonzales Brennan MD [address] [place] [address] 01/25/2025 9:00 AM EDT Office Visit [facility] [address] [place] [address] Gonzales Brennan MD [address] [place] [address] 02/14/2025 9:00 AM EDT Clinical Support [facility] [address] [place] [address] Marisol Thomas, LEVI [address] [place] [address] documented as of this encounter Visit Diagnoses Not on filedocumented in this encounter Additional Health Concerns Assessment Noted Time PHQ-9 Depression Total Score: 0 07/11/19 23 3:46 PM EDT documented as of this encounter Care Teams Farmer General Relationship Specialty Start Date End Date Gonzales Brennan MD [address] [place] [address] PCP - General Internal Medicine 04/27/18 documented as of this encounter
--- OUTSIDE RECORDS SUMMARY | 2024-12-30 08:40 | XMS_ITS | Encounter Summary ---
Author Organization [employer] Address [address] [place] [address] 7 [place] [address] Care Team Providers Care Gericare Aide Name Role Phone Gonzales Brennan MD Primary Care Provider [phone] Reason for Referral * Imaging (Routine) - Closed Specialty Diagnoses / Procedures Referred By Thad rosales Referred To Contact Radiology Diagnoses Neck pain Procedures CT Cervical Spine w/o Contrast Gonzales Brennan MD [address] [place] [address] Phone: tel: fax: [address] Phone: tel: fax: Referral ID Status Reason Start Date Expiration Date Visits Re quested Visits Authorized [id number] Closed 01/27/2024 01/26/2025 1 1 Encounter Details Date Type Department Care Team (Late st Contact Info) Description 01/27/2024 Orders Only [facility] [address] [place] [address] Gonzales Brennan MD [address] [place], [place] [phone] Neck pain (Primary Dx) Social History Tobacco [...] Description 12/30/2024 9:00 AM EDT Office Visit [facility] [address] [place] [address] Diaz Merida DMD [address] [place] [address] Arrived 01/02/2025 10:15 AM EDT Office Visit [facility] [address] [place] [address] Gonzales Brennan MD [address] [place] [address] 01/25/2025 9:00 AM EDT Office Visit [facility] [address] [place] [address] Gonzales Brennan MD [address] [place] [address] 02/14/2025 9:00 AM EDT Clinical Support [facility] [address] [place] [address] Marisol Thomas RN [address] [place] [address] documented as of this encounter Procedures Procedure Name Priority Date/Time Associated Diagnosis Comments CT CERVICAL SPINE WO CONTRAST Routine 02/02/2024 8:59 AM EDT Neck pain documented in this encounter Results * CT Cervical Spine w/o Contrast (02/02/2024 8:59 AM EDT) Anatomical Region Laterality Modality Spine, C-spine Computed Tomogra phy 02/02/2024 8:59 AM EDT Narrative 04/04/2024 11:[address] [address] [address] Scan Report Signed Patient: Sean Hinkle MR#: [id number] 2 : 1955 Acct:[id number] Age/Sex: 68 / M ADM Date: 02/02/24 Loc: HO.CT Attending Dr: Gonzales Brennan MD Ordering Physician: Gonzales Brennan MD Date of Service: 02/02/24 Procedure(s): CT cervical spine wo IV con Accession Number(s): [id number] cc: Gonzales Brennan MD EXAMINATION: CT CERVICAL [...] by: Taurus Trent MD 04/04/2024 11:38 AM [facility] Dictated By: Taurus Trent MD Signed By: <Electronically signed by Taurus Trent MD in OV> 04/04/24 1138 DD/ TD/TT: 02/02/2414 Media Analytics Manager: Procedure Note Donotarabellainterpreter, Image - 04/04/[address] [place] [address] [address] Scan Report Signed Patient: Sean HinkleMR#: [id number] 2 : 5Acct:[id number] Age/Sex: 68 / MADM Date: 02/02/24 Loc: HO.CT Attending Dr: Gonzales Brennan MD Ordering Physician: Gonzales Brennan MD Date of Service: 02/02/24 Procedure(s): CT cervical spine wo IV con Accession Number(s): [id number] cc: Gonzales Bernnan MD EXAMINATION: CT CERVICAL SPINE WITHOUT CONTRAST [...] by: Taurus Trent MD 04/04/2024 11:38 AM [facility] Dictated By: Taurus Trent MD Signed By: <Electronically signed by Taurus Trent MD in OV> 04/04/24 1138 DD/ 0859 TD/TT: 02/02/24 0914 Media Analytics Manager: us Gonzales Brennan MD IMG CT PROCEDURES Final Res ult documented in this encounter Visit Diagnoses Diagnosis Neck pain- Primary Cervicalgia documented in this encounter Additional Health Concerns Assessment Noted Time PHQ-9 Depression Total Score: 0 07/11/19 23 3:46 PM EDT documented as of this encounter Care Teams Gericare Aide Relationship Specialty Start Date End Date Gonzales Brennan MD [address] [place] [address] PCP - General Internal Medicine 04/27/18 documented as of this encounter
--- OUTSIDE RECORDS SUMMARY | 2024-12-30 08:40 | XMS_ITS | Clinical Summary ---
Author Organization [employer] Address [address] [place] [address] [address] [place] [address] Care Team Providers Care Cold Reduction Roller Name Role Phone Gonzales Brennan MD Primary Care Provider [phone] Allergies Active Allergy Reactions Criticality Noted Date [...] 500 MG tablet take 1 daily Active Misc. Devices (Wrist Brace) miscIndications:C arpal [...] OR FOR WHEEZING 18 g 11 Active glucose blood (FREESTYLE LITE) test strip USE TO TEST BLOOD SUGAR SIX TIMES DAILY 100 each 3 Active Stimulant Laxative 8.6-50 MG tabletIndications :Drug induced constipation TAKE ONE TABLET EVERY NIGHT AT BEDTIME NEEDED FOR CONSTIPATION 30 tablet 3 Active Sodium Fluoride (Clinpro 5000) 1.1 % pasteIndications: Dental caries [place] teeth for 2 minutes, morning and night. Spit, do not rinse. Do not eat or drink anything for 30 minutes following use. 339 g 3 Active FLUoxetine (PROzac) 40 MG capsuleIndication s:Anxiety state TAKE ONE CAPSULE EVERY MORNING 30 capsule Active Aspirin Adult Low Strength 81 MG EC tabletIndications :Essential hypertension,Athe rosclerosis of [place] coronary artery of [place] heart without angina pectoris TAKE ONE TABLET EVERY NIGHT AT BEDTIME 30 tablet Active glipiZIDE XL (Glucotrol XL) 5 MG 24 hr tabletIndications :Type 2 diabetes mellitus with diabetic polyneuropathy ([facility]) TAKE ONE TABLET EVERY MORNING WITH BREAKFAST 30 tablet Active tamsulosin (Flomax) 0.4 MG 24 hr capsule TAKE ONE CAPSULE EVERY EVENING 30 capsule Active atorvastatin (Lipitor) 40 MG tablet Take 1 tablet (40 mg) by mouth Once per day. 30 tablet Active lisinopril 5 MG tabletIndications :Essential hypertension Take 1 tablet (5 mg) by mouth Once per day. 30 tablet 2025 Active metFORMIN (Glucophage) 1000 MG tablet TAKE ONE TABLET IN THE MORNING AND EVENING 60 tablet Active gabapentin (Neurontin) 600 MG tabletIndications :Type 2 diabetes mellitus with hyperglycemia, without long-term current use of insulin ([facility]) TAKE ONE TABLET THREE TIMES DAILY IN THE MORNING, EVENING AND BEDTIME 90 tablet Active baclofen (Lioresal) 10 MG tabletIndications :Back pain, unspecified back location, unspecified back pain laterality, unspecified chronicity TAKE ONE TABLET TWICE DAILY 30 tablet Active lidocaine (Lidoderm) 5 % patchIndications: Spinal stenosis, cervical region Apply 1 patch topically Once per day. Remove & discard patch within 12 hours or as directed by MD. 30 patch Active hydrOXYzine HCl (Atarax) 50 MG tablet TAKE 1 TABLET EVERY NIGHT AT BEDTIME 30 tablet Active Ohtuvayre 3 MG/2.5ML suspension Active furosemide (Lasix) 40 MG tablet Take 40 mg by mouth in the morning. Active isosorbide mononitrate ER (Imdur) 30 MG 24 hr tablet Take 1 tablet (30 mg) by mouth Once per day. Do not crush or chew. 30 tablet 11 Active oxyCODONE (Roxicodone) 5 MG immediate release tabletIndications :Back pain, unspecified back location, unspecified back pain laterality, unspecified chronicity,Chroni c midline low back pain without sciatica Take 0.5 tablets (2.5 mg) by mouth every 8 (eight) hours if needed for severe pain for up to 14 days. 21 tablet 025 2024 Active nitroglycerin (Nitrostat) 0.4 MG SL tabletIndications :Atherosclerosis of [place] coronary artery of [place] heart without angina pectoris take 1 Tablet by Sublingual route every 5 minutes As needed for Chest pain 90 tablet 3 Active nitroglycerin (Nitrostat) 0.4 MG SL tabletIndications :Atherosclerosis of [place] coronary artery of [place] heart without angina pectoris take 1 Tablet by Sublingual route every 5 minutes As needed for Chest pain 90 tablet 3 024 2024 Discontinued(R eorder (will not trigger notification to Pharmacy)) hydrOXYzine HCl (Atarax) 50 MG tablet TAKE ONE TABLET every night at bedtime 30 tablet 11 024 2024 Discontinued baclofen (Lioresal) 10 MG tabletIndications :Back pain, unspecified back location, unspecified back pain laterality, unspecified chronicity Take 1 tablet (10 mg) by mouth 2 times daily. 30 tablet 3 025 2024 Discontinued isosorbide mononitrate ER (Imdur) 60 MG 24 hr tablet Take 1 tablet (60 mg) by mouth in the morning. 30 tablet 11 025 2024 Discontinued(S devon effects) celecoxib (CeleBREX) 200 MG capsule TAKE ONE CAPSULE BY MOUTH EVERY MORNING 10 capsule 025 2024 Discontinued azithromycin (Zithromax) 250 MG tabletIndications :COPD exacerbation (CMS/HCC) 500 mg on day 1, 250 mg day 2 to 5 6 tablet 025 2024 Discontinued metoprolol succinate XL (Toprol XL) 25 MG 24 hr tabletIndications :Essential hypertension Take 0.5 tablets (12.5 mg) by mouth Once per day. Do not crush or chew. 15 tablet 11 025 2024 Discontinued(S devon effects) oxyCODONE (Roxicodone) 5 MG immediate release tabletIndications :Back pain, unspecified back location, unspecified back pain laterality, unspecified chronicity,Chroni c midline low back pain without sciatica TAKE ONE TABLET EVERY 8 HOURS NEEDED FOR SEVERE PAIN 42 tablet 025 2024 Discontinued oxyCODONE (Roxicodone) 5 MG immediate release tabletIndications :Back pain, unspecified back location, unspecified back pain laterality, unspecified chronicity,Chroni c midline low back pain without sciatica TAKE ONE TABLET EVERY 8 HOURS NEEDED FOR SEVERE PAIN 42 tablet 025 2024 Discontinued(R eorder (will not trigger notification to Pharmacy)) oxyCODONE (Roxicodone) 5 MG immediate release tabletIndications :Spinal stenosis, cervical region Take 1 tablet (5 mg) by mouth every 6 (six) hours if needed for severe pain for up to 5 days. 15 tablet 025 2024 acetaminophen (Tylenol Extra Strength) 500 MG tabletIndications :Spinal stenosis, cervical region Take 2 tablets (1,000 mg) by mouth every 8 (eight) hours if needed for mild pain for up to 10 days. 30 tablet 025 2024 metoprolol succinate XL (Toprol XL) 25 MG 24 hr tabletIndications :Essential hypertension Take 0.5 tablets (12.5 mg) by mouth Once per day. Do not crush or chew. 15 tablet 11 025 2024 Discontinued(S devon effects) Active Problems Problem Noted Date Diagnosed Date CORIE (obstructive sleep apnea) 12/29/2024 Severe obesity (BMI 35.0-39.9) with comorbidity 12/29/2024 Hypercholesteremia 12/29/2024 Neck pain 12/29/2024 Long-term current use of opiate analgesic 2024 Cervical radiculopathy 04/04/2024 Degenerative disc disease, cervical 04/04/2024 COPD (chronic obstructive pulmonary disease) 10/202203/03/2023 Achalasia 03/03/2023 03/03/2023 Disease due to severe acute respiratory syndrome coronavirus 2 (SARS-CoV-2) 11/07/2022 Overview (12/29/2024): Problem added by Discern Expert Adrenal mass 03/09/2020 Atherosclerosis of [place] co ronary artery of [place] heart without angina pectoris 07/26/2018 Gastrocnemius tendon rupture 07/26/2018 Bilateral recurrent inguinal hernia 02/12/2015 Controlled type 2 diabetes with neuropathy 05/27 Headache 05/27/2011 Tobacco dependence syndrome 05/27/2011 Hypertension 12/20/2010 Depressive disorder 11/20/2010 Anxiety state 04/05/2010 Encounters Date Type Department Care Team Description 12/29/2024 10:45 AM EDT Office Visit [facility] [address] [place] [address] Luann Adrian MD NATHANIEL (acute kidney injury) (CMS/HCC) (Primary Dx); Essential hypertension; Back pain, unspecified back location, unspecified back pain laterality, unspecified chronicity; Chronic midline low back pain without sciatica; Atherosclerosis of [place] coronary artery of [place] heart without angina pectoris; Controlled type 2 diabetes with neuropathy (CMS/HCC); Neck pain 12/29/2024 Travel 12/27/2024 Patient Outreach [facility] [address] [place] [phone] Gonzales Brennan MD Transition Of Care (Tcm) (HDF scheduled and SDOH screening completed on 10/24/24 ) 12/27/2024 Patient Outreach [facility] [address] [place] [phone] Gonzales Brennan MD Transition Of Care (Tcm) (HDF unscheduled LVM ) 12/27/2024 Telephone [facility] [address] [place] [address] Gonzales Brennan MD Hospital Follow-up 12/22/2024 Refill [facility] [address] [place] [address] Gonzales Brennan MD 12/13/2024 8:00 AM EDT Office Visit [facility] [address] [place] [address] FuadDiaz osorio, DMD Dental caries (Primary Dx) 12/07/2024 2:00 PM EDT Office Visit [facility] [address] [place] [address] Gonzales Brennan MD Spinal stenosis, cervical region (Primary Dx) 12/07/2024 Travel 12/06/2024 Telephone [facility] [address] [place] [address] Gonzales Brennan MD 12/05/2024 Telephone [facility] [address] [place] [address] Gonzales Brennan MD 12/05/2024 Refill [facility] [address] [place] [address] Gonzales Brennan MD Back pain, unspecified back location, unspecified back pain laterality, unspecified chronicity; Chronic midline low back pain without sciatica 12/02/[address] [address] Gonzales Brennan MD 12/02/2024 Refill [facility] [address] [place] [address] Gonzales Brennan MD Back pain, unspecified back location, unspecified back pain laterality, unspecified chronicity 12/01/[address] [address] Gonzales Brennan MD Medication Question 12/01/[address] [address] Gonzales Brennan MD 11/30/[address] [address] Gonzales Brennan MD Medication Concerns 11/29/2024 Telephone [facility] [address] [place] [address] Gonzales Brennan MD Med Refill; Medication Question 11/22/2024 Refill [facility] [address] [place] [address] Gonzales Brennan MD Back pain, unspecified back location, unspecified back pain laterality, unspecified chronicity; Chronic midline low back pain without sciatica 11/11/2024 Refill [facility] [address] [place] [address] Gonzales Brennan MD Type 2 diabetes mellitus with hyperglycemia, without long-term current use of insulin ([facility]) 11/02/2024 8:45 AM EDT Office Visit [facility] [address] [place] [address] Diaz Merida DMD Dental caries (Primary Dx); Secondary dental caries associated with failed or defective dental anabaptism 10/27/2024 2:30 PM EDT Office Visit [facility] [address] [place] [address] Gonzales Brennan MD Essential hypertension (Primary Dx); LOC (loss of consciousness) ([facility]) 10/27/2024 2:30 PM EDT Clinical Support [facility] [address] [place] [address] Heather Mcmillan, LEVI 10/27/2024 Refill [facility] [address] [place] [address] Marisol Thomas RN Back pain, unspecified back location, unspecified back pain laterality, unspecified chronicity; Chronic midline low back pain without sciatica 10/27/2024 Travel 10/25/2024 Telephone [facility] [address] [place] [address] Gonzales Brennan MD Appointment Request 10/24/2024 1:15 PM EDT Office Visit [facility] [address] [place] [address] Gonzales Brennan MD Pre-op evaluation (Primary Dx); Essential hypertension; COPD exacerbation ([facility]) 10/24/2024 Travel 10/12/2024 3:15 PM EDT Clinical Support [facility] [address] [place] [address] Marisol Thomas RN Chronic midline low back pain without sciatica 10/12/2024 Travel 10/10/2024 Patient Outreach [facility] [address] [place] [address] Gonzales Brennan MD Pre-visit Planning (Pre visit planning LVM ) from Last 3 Months Immunizations Immunization Administration Dates Next Due Influenza High-dose Quadriva [...] Mass Index 33.17 12/29/2024 10:54 AM EDT Plan of Treatment Upcoming Encounters Date Type Department Care Team (Late st Contact Info) Description 12/30/2024 9:00 AM EDT Office Visit [facility] [address] [place] [address] Diaz Merida, CEDRICK [address] [place] [address] Arrived 01/02/2025 10:15 AM EDT Office Visit [facility] [address] [place] [address] Gonzales Brennan MD [address] [place] [address] 01/25/2025 9:00 AM EDT Office Visit [facility] [address] [place] [address] Gonzales Brennan MD [address] [place] [address] 02/14/2025 9:00 AM EDT Clinical Support [facility] [address] [place] [address] Marisol Thomas, LEVI [address] [place], [place] [phone] Health Maintenance Due Date Last Done Comments CT Colonography 1954 FIT DNA/Cologuard 1954 FIT 1954 FOBT 1954 Sigmoidoscopy 1954 Diabetes: Foot Exam 1964 Lung Cancer Screening 2004 RSV Patients and Patients Aged 60 years or older (1 - Risk 60-74 years 1-dose series) 2014 Dental Prophylaxis 09/06/2024 03/08/2024, 0 12/06/2018, 02/20/2014, Additional history exists Dental Oral Exam 09/28/2024 03/29/2024, , 08/04/2013, Additional history exists Eye Exam 12/01/2024 COVID-19 Vaccine ( season) 2024 02/12/2021, 07/25/2020, 06/27/2020 Influenza Vaccine (#1) 2024 , 01/10/2022, 02/07/2021, Additional history exists Diabetes: Urine Protein Screening 02/25/2025 02/26/2024, 06/10/2021, 02/19/2021 Dental X-Ray: Bitewings 03/30/2025 03/29/2024, 05/01 Diabetes: Hemoglobin A1C 04/25/2025 025, 11/23/2023, 06/02/2023, Additional history exists Alcohol/Substance Use Screening 10/24/2025 10/24/2024 Depression Screening 10/24/2025 10/24/2024, 07/11/19 23 Lipid Panel 10/24/2025 10/24/2024, 04/2023, 06/10/2021, Additional history exists SDOH Screening 10/24/2025 10/24/2024 Tobacco Screening 12/29/2025 12/29/2024 Colonoscopy 02/06/2026 02/06/2023 Colorectal Cancer Screening 02/06/2026 [...] PRESENTATION, DETAILED AND EXTENSIVE TREATMENT PLANNING Routine 12/13/2024 8:00 AM EDT Dental caries 26 MDFL RESIN-BASED COMPOSITE - 4 OR MORE SURFACES (ANTERIOR) Routine 12/13/2024 8:00 AM EDT Dental caries CASE PRESENTATION, DETAILED AND EXTENSIVE TREATMENT PLANNING Routine 11/02/2024 8:45 AM EDT Dental caries Secondary dental caries associated with failed or defective dental anabaptism 24 MDFL RESIN-BASED COMPOSITE - 4 OR MORE SURFACES (ANTERIOR) Routine 11/02/2024 8:45 AM EDT Dental caries Secondary dental caries associated with failed or defective dental anabaptism 23 MDFL RESIN-BASED COMPOSITE - 4 OR MORE SURFACES (ANTERIOR) Routine 11/02/2024 8:45 AM EDT Dental caries Secondary dental caries associated with failed or defective dental anabaptism ECG 12-LEAD Routine 10/27/2024 3:26 PM EDT Essential hypertension LOC (loss of consciousness) (CMS/HCC) TSH W/REFLEX TO FT4 Routine 10/24/2024 2 :17 PM EDT Pre-op evaluation LIPID PANEL, STANDARD Routine 10/24/2024 2:17 PM EDT Pre-op evaluation CBC WITH AUTO DIFFERENTIAL Routine 10/24/2024 2:17 PM EDT Pre-op evaluation COMPREHENSIVE METABOLIC PANEL Routine 10/24/2024 2:17 PM EDT Pre-op evaluation POCT GLUCOSE Routine 10/24/2024 1:54 PM EDT Pre-op evaluation POCT GLYCATED HEMOGLOBIN, TOTAL Routine 10/24/2024 1:53 PM EDT Pre-op evaluation POCT LUZMA-14 URINE DRUG SCREEN Routine 10/12/2024 3:25 PM EDT Chronic midline low back pain without sciatica BITEWINGS - 2 RADIOGRAPHIC IMAGES Routine 03/29/2024 [...] Recently Relevant to Health Maintenance Results * ECG 12 lead (10/27/2024 3:26 PM EDT) Narrative Gonzales Brennan MD - 10/27/2024 3:26 PM EDT Heart rate 62 bpm. Sinus rhythm. [place] -2 degrees. No sign of left atrial enlargement or right atrial enlargement. No sign of hypertrophy. No ST elevation or ST depression. Slight intraventricular delay. EKG without significant abnormality. us Gonzales Brennan MD ECG ORDERABLES Final Resul t * TSH W/Reflex to FT4 (10/24/2024 2:17 PM EDT) TSH reflex Free T4 0.45 0.32 - 4.0 uIU/mL [facility] Blood Venous blood specimen / Unknown 10/24/2024 2:17 PM EDT 10/24/2024 2:17 PM EDT us Gonzales Brennan MD LAB BLOOD ORDERABLES Final Result [facility] [address] [place] [phone] * (ABNORMAL) CBC auto differential (10/24/2024 2:17 PM EDT) White Blood Count 8.7 4.8 - 10.8 X10*3/uL [facility] Red Blood Count 4.57(L) 4.60 - 5.80 X10*6/uL [facility] Hemoglobin 14.0 14.0 - 18.0 g/dl [facility] Hematocrit 40.1(L) 42.0 - 52.0 % [facility] Mean Corpuscular Volume 87.7 80.0 - 98.0 fL [facility] Mean Corpuscular Hemoglobin 30.6 27.0 - 33.0 pg [facility] Mean Corpuscular HGB Conc 34.9 31.0 - 36.0 g/dl [facility] Red Cell Distribution Width 12.7 11.0 - 16.0 % [facility] Platelet Count 163 160 - 400 X10*3/uL [facility] Mean Platelet Volume 9.1(L) 9.4 - 12.4 fL [facility] Neutrophils Percent Auto 61.3 45 - 73 % [facility] Imm Gran Pct Auto 0.2 0.0 - 0.4 % [facility] Lymphocytes Percent Auto 28.0 20 - 40 % [facility] Monocytes Percent Auto 8.6 2 - 11 % [facility] Eosinophils Percent Auto 1.3 0 - 4 % [facility] Basophils Percent Auto 0.6 0 - 2 % [facility] NRBC Pct Auto 0.0 0.0 - 0.2 /100WBC [facility] Neutrophils Absolute Auto 5.4 2.0 - 8.3 x10*3/uL [facility] Imm Gran Abs Auto 0.02 0.00 - 0.03 X10*3/uL [facility] Lymphocytes Absolute Auto 2.5 1.2 - 4.9 X10*3/uL [facility] Monocytes Absolute Auto 0.8 0.1 - 1.2 X10*3/uL [facility] Eosinophils Absolute Auto 0.1 0.0 - 0.4 X10*3/uL [facility] Basophils Absolute Auto 0.1 0.0 - 0.2 X10*3/uL [facility] NRBC Abs Auto 0.000 0.0 - 0.012 X10*3/uL [facility] Blood Venous blood specimen / Unknown 10/24/2024 2:17 PM EDT 10/24/2024 2:17 PM EDT us Gonzales Brennan MD LAB BLOOD ORDERABLES Final Result Performing Organization Address [facility]/ZIP Co de Phone Number [facility] [address] [place] [phone] [phone] * (ABNORMAL) Lipid Panel, Standard (10/24/2024 2:17 PM EDT) Triglycerides 190(H) <150 mg/dL [facility] Comment:Desirable Triglyceri de: less than 150 mg/dLBorderline High Triglyceride 150-199 mg/dLHigh Triglyceride: 200-499 mg/dLVery High Triglyceride: greater than or equal to 5OO mg/dL Cholesterol 139 <200 mg/dL [facility] Comment:Desirable Cholestero l: less than 200 mg/dLBorderline High Cholesterol: 200-239 mg/dLHigh Cholesterol: greater than 239 mg/dL LDL Cholesterol Calculated 68 <100 mg/dL [facility] Comment:Desirable LDL: less than 100 mg/dLNear Optimal/Above Optimal LDL: 110- 129 mg/dLBorderline High LDL: 130-159 mg/dLHigh LDL: 160-189 mg/dLVery High LDL: greater than or equal to 190 mg/dL HDL Cholesterol 33(L) >40 mg/dL [facility] Comment:Desirable HDL: great er than 40 mg/dL Note: This HDL assay may give artificially low results in patients with liver disease. Blood Venous blood specimen / Unknown 10/24/2024 2:17 PM EDT 10/24/2024 2:17 PM EDT us Gonzales Brennan MD LAB BLOOD ORDERABLES Final Result Performing Organization Address [facility]/ZIP Co de Phone Number [facility] [address] [place] [phone] * (ABNORMAL) Comprehensive Metabolic Panel (10/24/2024 2:17 PM EDT) Sodium 140 135 - 145 mmol/L [facility] Potassium 4.3 3.3 - 5.1 mmol/L [facility] Chloride 104 96 - 108 mmol/L [facility] Carbon Dioxide 26 22 - 29 mmol/L [facility] Anion Gap 14 12 - 20 [facility] Urea Nitrogen (BUN) 29(H) 9 - 16 mg/dL [facility] Creatinine, Serum 1.39 0.5 - 1.4 mg/dL [facility] Estimated Glomerular Filt Rate 51 [facility] Comment:Chronic Kidney Disea se: Estimated GFR < 60 mL/min/1.18b2Ehsqjo Kidney Disease: Estimated GFR < 15 mL/min/1.73m2 Glucose 102 60 - 115 mg/dL [facility] Calcium 9.5 8.4 - 10.2 mg/dL [facility] Bilirubin, Total 0.4 0.0 - 1.0 mg/dL [facility] Aspartate Amino Transferase 28 5 - 37 U/L [facility] Alanine Aminotransferase 19 0 - 40 U/L [facility] Total Protein 7.5 6.5 - 8.0 g/dL [facility] Albumin Level 4.6 3.5 - 5.0 g/dL [facility] Alkaline Phosphatase 63 39 - 117 U/L [facility] Blood Venous blood specimen / Unknown 10/24/2024 2:17 PM EDT 10/24/2024 2:17 PM EDT Gonzales Brennan MD LAB BLOOD ORDERABLES Final Result [facility] [address] [place] [phone] * POCT Glucose (10/24/2024 1:54 PM EDT) Glucose Blood, POC 120 60 - 200 mg/dL [employer] Lot # [id number] Lot# Expiration Date Comment:random Blood Capillary blood specimen / Unknown 10/24/2024 1:54 PM EDT Gonzales Brennan MD POINT OF CARE TEST ENTER/ED IT ORDERABLES Final Result * (ABNORMAL) POCT HGB A1C (10/24/2024 1:53 PM EDT) Hemoglobin A1C 6.4(A) 4.0 - 5.7 % [employer] Lot # [id number] Lot# Expiration Date 343 Blood 10/24/2024 1:53 PM EDT Gonzales Brennan MD POINT OF CARE TEST ENTER/ED IT ORDERABLES Final Result * POCT LUZMA-14 Urine Drug Screen (10/12/2024 3:25 PM EDT) THC Negative Cocaine Screen, Urine Negative Opiate Screen, Urine Negative Methamphetamine Screen Urine Negative Amphetamine Screen, Urine Negative Benzodiazepines Screen, Urine Negative Barbiturate Screen, Urine Negative Methadone Screen, Urine Negative Buprenophine Screen, Urine Negative TCA, Urine Negative MDMA Urine Negative ng/mL Oxycodone Screen, Urine Positive Phencyclidine (PCP), Urine Negative Propoxyphene, Urine Negative Fentanyl, Urine Negative Urine Urine specimen obtained by clean catch procedure / Unknown 10/12/2024 3:25 PM EDT Narrative Marisol Thomas RN - 10/12/2024 3:25 PM EDT Internal Pass Control Lot# [id number] Exp: 02-24-26 Gonzales Brennan MD POINT OF CARE TEST ENTER/ED IT ORDERABLES Final Result * (ABNORMAL) Albumin, Random Urine W/Creatinine (02/26/2024 2:00 PM EDT) Creatinine, Urine 122.05 mg/dL [facility] Microalbumin Urine 1,421.0 mg/L [facility] Microalbum Creatinine Ratio Ur 1,164.2(H ) <30 ug/mg cr [facility] Comment:Albumin/Creatinine R at Reference Ranges: Normal: < 30 ug/mg creatinine Microalbuminuria: 30 - 300 ug/mg creatinineClinical Albuminuria: > 300 ug/mg creatinine Urine (Urine, Random) 02/26/2024 2:00 PM EDT 02/26/2024 5:55 PM EDT us Gonzales Brennan MD LAB URINE ORDERABLES Final Result Performing Organization Address City/[facility] Co de Phone Number [facility] [address] [place] [phone] [phone] * Colonoscopy (02/06/2023) Anatomical Region Laterality Modality Endoscopy Narrative 02/06/2023 3 polyps us Gonzales Brennan MD ENDOSCOPY PROCEDURE ORDERAB LES Final Result * HEPATITIS C AB W/REFL TO HCV RNA, QN, PCR (06/10/2021 11:50 AM EST) HEPATITIS C ANTIBODY NON-REACT ALEXX NON-REACT ALEXX [facility] INDEX 0.23 <1.00 [facility] Comment: HCV antibody was non-reactive. There is no laboratory evidence of HCV infection. In most cases, no further action is required. However, if recent HCV exposure is suspected, a test for HCV RNA (test code 31294) is suggested. For additional information please refer to http://education.Urgent.ly/faq/CIW19y8 (This link is being provided for informational/ educational purposes only.) 06/10/2021 11:5 0 AM EST us Gonzales Brennan MD HISTORICAL/NON ORDERABLE LA BS Final Result [facility] [address] from Last 3 Months or Most Recently Relevant to Health Maintenance Insurance [employer] MEDICARE REPLACEMENT DENTAL - HSN FULL (MEDICAID) Care Teams Cold Reduction Roller Relationship Specialty Start Date End Date Gonzales Brennan MD [address] [place] [phone] PCP - General Internal Medicine 04/27/18
--- OUTSIDE RECORDS SUMMARY | 2024-12-30 08:40 | XMS_ITS | Encounter Summary ---
Author Organization [employer] Address [address] [facility] 7t [place] [address] Care Team Providers Care Thread Grinder Name Role Phone Gonzales Brennan MD Primary Care Provider +1- [phone] Reason for Visit * Reason Onset Date Comments Referral 02/23/2024 Encounter Details Date Type Department Care Team ([facility] st Contact Info) Description 02/23/2024 Telephone [facility] MED[facility]INE [address] [place] [address] Gonzales Brennan MD [address] [place] [address] Referral Social History Tobacco Use Types Packs/Day [...] 12:37 PM) CC looked up patient on [facility] portal. Patient CT scan pictures are visible, but unable to save and scan on patient's chart. CC will send a request to [facility] to send any CT scans reports made, [...] pt. States he had it done at [facility]. I also informed pt. That PCP ordered [...] (ACR) . Roseanna (KEMAR) [facility] [phone] documented in this encounter Plan of Treatment Upcoming Encounters Date Type Department Care Team (Late st Contact Info) Description 12/30/2024 9:00 AM EDT Office Visit [facility] [address] [place] [address] Diaz Merida DMD [address] [place] [address] Arrived 01/02/2025 10:15 AM EDT Office Visit [facility] [address] [place] [address] Gonzales Brennan MD [address] [place] [address] 01/25/2025 9:00 AM EDT Office Visit [facility] [address] [place] [address] Gonzales Brennan MD [address] [place] [address] 02/14/2025 9:00 AM EDT Clinical Support [facility] [address] [place] [address] Marisol Thomas, LEVI [address] [place] [address] documented as of this encounter Visit Diagnoses Not on filedocumented in this encounter Additional Health Concerns Assessment Noted Time PHQ-9 Depression Total Score: 0 07/11/19 23 3:46 PM EDT documented as of this encounter Care Teams Thread Grinder Relationship Specialty Start Date End Date Gonzales Brennan MD [address] [place] [id number] PCP - General Internal Medicine 04/27/18 documented as of this encounter
--- OUTSIDE RECORDS SUMMARY | 2024-12-30 08:40 | XMS_ITS | Encounter Summary ---
Author Organization [employer] Address [address] [facility] 7t [place] [address] Care Team Providers Care Veterans' Counselor Name Role Phone Gonzales Brennan MD Primary Care Provider [phone] Encounter Details Date Type Department Care Team ([facility] st Contact Info) Description 01/04/2024 Orders Only [facility] MED & PEDS [address] [place], [place] [phone] Gonzales Brennan MD [address] [place], [place] [phone] Essential hypertension (Primary Dx) Social History Tobacco [...] 12/30/2024 9:00 AM EDT Office Visit [facility] [address] [place] [address] Diaz Merida DMD 505 [place] [address] Arrived 01/02/2025 10:15 AM EDT Office Visit [facility] [address] [place] [address] Gonzales Brennan MD [address] [place] [address] 01/25/2025 9:00 AM EDT Office Visit [facility] [address] [place] [address] Gonzales Brennan MD [address] [place] [address] 02/14/2025 9:00 AM EDT Clinical Support [facility] [address] [place] [address] Marisol Thomas, RN [address] [place] [address] documented as of this encounter Procedures Procedure Name Priority Date/Time Associated Diagnosis Comments URINALYSIS, COMPLETE Routine 01/21/2024 10:50 AM EDT Essential hypertension BASIC METABOLIC PANEL Routine 01/21/2024 10:44 AM EDT Essential hypertension documented in this encounter Results * (ABNORMAL) Urinalysis Complete (01/21/2024 10:50 AM EDT) Color Urine Yellow [facility] Appearance Urine Clear [facility] PH 5.5 5.0 - 9.0 [facility] Glucose Urine UA Negative Negative mg/dL [facility] Urine Blood Negative Negative [facility] Specific [place] - Urine 1.025 1.005 - 1.025 [facility] Urine Protein 300 (3+)(A) Neg-Trace mg/dL [facility] Urine Ketones Negative Negative mg/dL [facility] Nitrite Urine Negative Negative [facility] Leukocyte Esterase Urine Negative Negative [facility] RBC Urine 0-2 0 - 2 /HPF [facility] Urine WBC 0-5 0 - 5 /HPF [facility] Urine Squamous Epithelial Cell 0-2 0 - 2 /HPF [facility] Urine Bacteria None Seen None Seen [facility] Hyaline Casts, Urine 0-2 0 - 2 /LPF [facility] Urine (Urine, Random) 01/21/2024 10:50 AM EDT 01/21/2024 2:10 PM EDT us Gonzales Brennan MD LAB URINE ORDERABLES Final Result [facility] [address] [place] [address] [phone] * (ABNORMAL) Basic Metabolic Panel (01/21/2024 10:44 AM EDT) Sodium 142 135 - 145 mmol/L [facility] Potassium 4.3 3.3 - 5.1 mmol/L [facility] Chloride 107 96 - 108 mmol/L [facility] Carbon Dioxide 27 22 - 29 mmol/L [facility] Anion Gap 12 12 - 20 [facility] Urea Nitrogen (BUN) 18(H) 9 - 16 mg/dL [facility] Creatinine, Serum 1.03 0.5 - 1.4 mg/dL [facility] Estimated Glomerular Filt Rate >60 [facility] Comment:NOTE: For -Am erican individuals, multiply the result by 1.210.Chronic Kidney Disease: Estimated GFR < 60 mL/min/1.62c2Kkdqea Kidney Disease: Estimated GFR < 15 mL/min/1.73m2 Glucose 105 60 - 115 mg/dL [facility] Calcium 9.5 8.4 - 10.2 mg/dL [facility] Blood Venous blood specimen / Unknown 01/21/2024 10:44 AM EDT 01/21/2024 2:13 PM EDT Gonzales Brennan MD LAB BLOOD ORDERABLES Final Result [facility] [address] [place] [address] [phone] documented in this encounter Visit Diagnoses Diagnosis Essential hypertension- Primary Unspecified essential hypertension documented in this encounter Additional Health Concerns Assessment Noted Time PHQ-9 Depression Total Score: 0 07/11/19 23 3:46 PM EDT documented as of this encounter Care Teams Veterans' Counselor Relationship Specialty Start Date End Date Gonzales Brennan MD [address] [place] [id number] PCP - General Internal Medicine 04/27/18 documented as of this encounter
--- OUTSIDE RECORDS SUMMARY | 2024-12-30 08:40 | XMS_ITS | Encounter Summary ---
Author Organization [employer] Address [address] [facility] 7t [place] [address] Care Team Providers Care Stem Maker Name Role Phone Gonzales Brennan MD Primary Care Provider +1- [phone] Encounter Details Date Type Department Care Team (Late Contact Info) Description 08/22/2022 Orders Only [facility] [place]S [address] [place] [address] Cinthia Rodas LPN Social History Tobacco Use [...] 9:00 AM EDT Office Visit [facility] ADULT DENTAL [address] [place] [address] Diaz Merida, DMD [address] [place], [place] [phone] Arrived 01/02/2025 10:15 AM EDT Office Visit [facility] MED [facility] PEDS [address] [place] [address] Gonzales Brennan MD [address] [place] [address] 01/25/2025 9:00 AM EDT Office Visit [facility] MED [facility] PEDS [address] [place] [address] Gonzales Brennan MD [address] [place] [address] 02/14/2025 9:00 AM EDT Clinical Support [facility] MED & PEDS [address] [place] [address] Marisol Thomas RN [address] [place] [address] documented as of this encounter Visit Diagnoses Not on filedocumented in this encounter Additional Health Concerns Assessment Noted Time PHQ-9 Depression Total Score: 0 07/11/19 23 3:46 PM EDT documented as of this encounter Care Teams Stem Maker Relationship Specialty Start Date End Date Gonzales Brennan MD [address] [place] [phone] PCP - General Internal Medicine 04/27/18 documented as of this encounter
--- OUTSIDE RECORDS SUMMARY | 2024-12-30 08:40 | XMS_ITS | Encounter Summary ---
Author Organization [employer] Address [address] [facility] 7t [place] [address] Care Team Providers Care Assistant Project Manager Name Role Phone Gonzales Brennan MD Primary Care Provider +1 [phone] Encounter Details Date Type Department Care Team ([facility] st Contact Info) Description 02/24/2024 Orders Only [facility] MED & PEDS [address] [place], [place] [phone] Gonzales Brennan MD [address] [place], [place] [phone] Controlled type 2 diabetes with neuropathy (CMS/HCC) [...] Office Visit [facility] [address] [place] [address] Diaz Merida DMD [address] [place] [address] Arrived 01/02/2025 10:15 AM EDT Office Visit [facility] [address] [place] [address] Gonzales Brennan MD [address] [place] [address] 01/25/2025 9:00 AM EDT Office Visit [facility] [address] [place] [address] Gonzales Brennan MD [address] [place] [address] 02/14/2025 9:00 AM EDT Clinical Support [facility] [address] [place] [address] Marisol Thomas RN [address] [place] [address] documented as of this encounter Procedures Procedure Name Priority Date/Time Associated Diagnosis Comments ALBUMIN, RANDOM URINE W/CREATININE Routine 02/26/2024 2:00 PM EDT Controlled type 2 diabetes with neuropathy (CMS/HCC) documented in this encounter Results * (ABNORMAL) Albumin, Random Urine W/Creatinine (02/26/2024 2:00 PM EDT) Creatinine, Urine 122.05 mg/dL [facility] Microalbumin Urine 1,421.0 mg/L [facility] Microalbum Creatinine Ratio Ur 1,164.2(H ) <30 ug/mg cr [facility] Comment:Albumin/Creatinine R atio Reference Ranges: Normal: < 30 ug/mg creatinine Microalbuminuria: 30 - 300 ug/mg creatinineClinical Albuminuria: > 300 ug/mg creatinine Urine (Urine, Random) 02/26/2024 2:00 PM EDT 02/26/2024 5:55 PM EDT us Gonzales Brennan MD LAB URINE ORDERABLES Final Result Performing Organization Address City/State/[facility] Co de Phone Number [facility] [address] [place] [address] [phone] documented in this encounter Visit Diagnoses Diagnosis Controlled type 2 diabetes with neuropathy (CMS/HCC)- Primary Type II or unspecified type diabetes mellitus with neurological manifestations, not stated as uncontrolled documented in this encounter Additional Health Concerns Assessment Noted Time PHQ-9 Depression Total Score: 0 07/11/19 23 3:46 PM EDT documented as of this encounter Care Teams Assistant Project Manager Relationship Specialty Start Date End Date Gonzales Brennan MD [address] [place] [phone] PCP - General Internal Medicine 04/27/18 documented as of this encounter
[2024-12-30 12:08] LABS: Anion Gap 13 (12-20); Blood Urea Nitrogen 17 mg/dL (9-16); Calcium 9.0 mg/dL (8.4-10.2); Carbon Dioxide 28 mmol/L (22-29); Chloride 104 mmol/L (96-108); Estimated Glomerular Filt Rate > 60; Potassium 3.7 mmol/L (3.3-5.1); Sodium 141 mmol/L (135-145)
== END 2024-12-30 08:17 | disposition home or self-care (01) ==
LOC: HO.CHCLDS 08:16
PROVIDERS: Visit Provider Family Medicine
DX: N17.9 Acute kidney failure, unspecified (principal)
CPT/HCPCS: 36415; 80048

== ENCOUNTER 2025-02-22 09:00 | Outpatient (AMB) | payer MEDICARE, MEDICAID, SELFPAY ==
[2025-02-22 09:01] VITALS: BP 128/70; PULSE 74; O2SAT 92; BMI 34.8
--- NOTE | 2025-02-22 09:01 | MHC.OFFVIS ---
Vital Signs 02/22/25 09:01 Height 5 ft 7 in Weight 222 lb BMI 34.8 BP 128/70 Blood Pressure Location Rt brachial Position Sitting Pulse 74 Pulse Source Pulse Oximeter Pulse Oximetry (%) 92 Oxygen Delivery Method Room Air Intake Visit Reasons: COPD Allergies Penicillins (PENICILLINS) Allergy (Severe, Verified 09/27/24 13:42) THROAT SWELLING penicillin V Allergy (Unknown, Verified 09/27/24 13:42) anaphylaxis HPI HPI COPD: Details: 69-year-old gentleman, active 40+ pack-year smoker, followed for pulmonary nodules and COPD.? He denies family history of lung diseases.? 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 He completed a follow-up CT chest that showed increasing size in his right lower nodule from 8 up to 10 mm and a new right upper lobe 7 mm nodule.? Patient was evaluated by thoracic surgery and decision has been reached to resect right-sided pulmonary nodules with wedge resection with one being a benign tumour and another a non tumour nodule. His lung cancer screening CT chest showed no worrisome pulmonary nodules in July of 2024. He has been using Trelegy, theophylline, and albuterol MDI/nebs with reasonable control of his underlying COPD. He continuous on Lasix 40 mg daily with good control of dyspnea on exertion and orthopnea. He denies any recent exacerbations. [facility] Medical History (Updated 09/27/24 @ 14:01 by Manolo Lucas MD) CAD (coronary artery disease) Dysphagia Tubular adenoma Tubular adenoma IBS (irritable bowel syndrome) Personal history of nicotine dependence Diabetes mellitus type 2, controlled Tubular adenoma of colon (~2019) GERD (gastroesophageal reflux disease) H/O benign carcinoid tumor Cough Back pain Anxiety and depression Lung nodule BPH (benign prostatic hyperplasia) Hyperthyroidism Left adrenal mass HLD (hyperlipidemia) Chest pain Obesity HTN (hypertension) COPD (chronic obstructive pulmonary disease) Surgical History History of total adrenalectomy History of colonoscopy History of lithotripsy (~2014) History of bilateral inguinal hernia repair (~2014) History of esophagogastroduodenoscopy (EGD) History of prostate surgery (~2017) History of cholecystectomy (~2019) History of cardiac cath (~2010) Family History Father Cancer Mother Lung cancer Brother Heart attack Social History Household Members Other:: Pt anxious and unable to respond at this time Do you presently have visiting nurse or other home services: Yes ([place]) Alcohol intake: never Comment: Patient refusing all alarms Patient Tobacco Use Status: Former Tobacco user Tobacco use type: Cigarette Cigarette Packs Per Day: 0.5 Cigarettes Per Day: 10.0 Years Smoked: 50 Substance Use Type: Marijuana Advance Directives Date on File: 02/09/20 service: No Review of Systems Const Denies daytime sleepiness, Denies excessive sweating, Denies fatigue, Denies fever(s), Denies lethargy, Denies malaise, Denies night sweats, Denies snoring and Denies weight loss Eyes Denies blurry vision and Denies itchy eyes ENT Denies nasal congestion, Denies post nasal drip, Denies sinus pain, Denies sinus pressure and Denies other ( Thrush) Card Denies chest pain, Denies pedal edema, Denies dyspnea, Denies orthopnea and Denies paroxysmal nocturnal dyspnea Resp Denies cough, Denies hemoptysis, Denies excessive phlegm production, Denies dyspnea, Denies snoring and Denies wheezing GI Denies abdominal pain and Denies heartburn Musc Denies myalgias, Denies arthralgias and Denies joint swelling Skin/Breast Denies rash Neuro Denies memory loss and Denies seizure-like activity Psych Denies abnormal sleep pattern, Denies anxiety and Denies memory loss Endo Denies excessive sweating, Denies fatigue and Denies heat intolerance Kwasi/Lymph Denies easy bruising Aller/Immun Denies itchy eyes, Denies seasonal rhinorrhea and Denies wheezing Physical Exam Vital Signs: Last Vital Signs Pulse 74 02/22/25 09:01 BP 128/70 02/22/25 09:01 Pulse Ox 92 02/22/25 09:01 Oxygen Delivery Method Room Air 02/22/25 09:01 BMI result Body Mass Index 34.8 Const General: no acute distress and alert Nutritional Appearance: not obese Orientation/consciousness: Other orientation findings ( oriented) HEENT Head: Yes atraumatic Eyes General: appearance normal, both eyes and all related structures Sclerae: sclerae normal EOM: EOMs intact bilaterally Neck Neck: Yes supple Lymphatic: no lymphadenopathy noted Resp Effort & Inspection: normal respiratory effort and no use of accessory muscles Auscultation: clear to auscultation bilaterally Cardio Rate: regular rate Rhythm: regular rhythm Heart sounds: no gallops, no murmurs and no rubs Skin General skin exam: other ( warm) Extrem General: No clubbing, No cyanosis and Yes edema (Trace bilateral) Assessment & Plan Assessment & Plan (1) COPD (chronic obstructive pulmonary disease): Code(s): J44.9 - Chronic obstructive pulmonary disease, unspecified Category: Medical Plan: Well controlled on current regimen of Trelegy, theophylline, and albuterol MDI/nebs. Continue current regimen. Now with bronchitic cough, will treat with a course of Levaquin. (2) Personal history of nicotine dependence: Comment: (current smoker, 40+PYH) Code(s): Z87.891 - Personal history of nicotine dependence Category: Medical Plan: Results of lung cancer screening CT chest from July of 2024 reviewed and does not demonstrate worrisome pulmonary nodules. Continue with yearly screening, next in July of 2025. (3) Orthopnea: Code(s): R06.01 - Orthopnea Category: Medical Plan: Well controlled current diuretic regimen of Lasix 40 mg daily. Continue current regimen. Medications: New levofloxacin 750 mg PO DAILY 7 tabs 0RF Refilled albuterol sulfate 90 mcg/actuation 2 puffs inhalation Q4-6H PRN 1 ea 6RF shortness of breath or wheezing 30 days Coding Level of Care Code Est Pt Level 4 (82864) Complex EM visit Add On G2211 Diagnoses COPD (chronic obstructive pulmonary disease) J44.9 Personal history of nicotine dependence Z87.891 Orthopnea R06.01
--- OUTSIDE RECORDS SUMMARY | 2025-02-22 10:05 | XMS_ITS | Encounter Summary ---
Author Organization [employer] Address [address] [facility] 7t [place] [address] Care Team Providers Care Bulk Pigment Reducer Name Role Phone Gonzales Brennan MD Primary Care Provider +1- [phone] Reason for Visit * Reason Onset Date Comments Referral 02/23/2024 Encounter Details Date Type Department Care Team ([facility] st Contact Info) Description 02/23/2024 Telephone [facility] MEDICINE [address] [place] [address] Gonzales Brennan MD [address] [place] [address] Referral Social History Tobacco Use Types Packs/Day [...] 12:37 PM) CC looked up patient on [facility] [place] portal. Patient CT scan pictures are visible, but unable to save and scan on patient's chart. CC will send a request to [facility] [place] [place] to send any CT scans reports made, [...] pt. States he had it done at [facility] [place] [place]. I also informed pt. That PCP ordered [...] (ACR) . Roseanna (KEMAR) [facility] [phone] documented in this encounter Plan of Treatment Upcoming Encounters Date Type Department Care Team (Late st Contact Info) Description 05/30/2025 9:00 AM EST Clinical Support [facility] PED[facility] [address] [place] [address] Marisol Thomas RN [address] [place] [address] 07/10/2025 8:00 AM EDT Office Visit [facility] ADULT DENT[facility] [address] [place] [address] Louis Brennan documented as of this encounter Visit Diagnoses Not on filedocumented in this encounter Additional Health Concerns Assessment Noted Time PHQ-9 Depression Total Score: 0 07/11/19 23 3:46 PM EDT documented as of this encounter Care Teams Bulk Pigment Reducer Relationship Specialty Start Date End Date Gonzales Brennan MD [address] [place] [address] PCP - General Internal Medicine 04/27/18 documented as of this encounter
--- OUTSIDE RECORDS SUMMARY | 2025-02-22 10:05 | XMS_ITS | Clinical Summary ---
Author Organization [email or web address] Address [address] [place] [address] [address] [place] [address] Care Team Providers Care Export Freight Specialist Name Role Phone Gonzales Brennan MD Primary Care Provider [phone] Allergies Active Allergy Reactions Criticality Noted Date [...] obstructive pulmonary disease with acute exacerbation (CMS/HCC) ([facility]) INHALE 2.5 MG (3 ML) INHALED EVERY 6 HOURS NEEDED FOR SHORTNESS OF BREATH OR WHEEZING FOR 30 DAYS 75 mL 11 Active albuterol 108 (90 Base) MCG/ACT inhalerIndication s:Chronic obstructive pulmonary disease with acute exacerbation (CMS/HCC) ([facility]) INHALE TWO PUFFS EVERY 4 TO 6 [...] (Clinpro 5000) 1.1 % pasteIndications: Dental caries Fedora teeth for 2 minutes, morning and night. Spit, do not rinse. Do not eat or drink anything for 30 minutes following use. 339 g 3 Active FLUoxetine (PROzac) 40 MG capsuleIndication s:Anxiety state TAKE ONE CAPSULE EVERY MORNING 30 capsule Active Aspirin Adult Low Strength 81 MG EC tabletIndications :Essential hypertension,Athe rosclerosis of kot[place] coronary artery of kot[place] heart without angina pectoris TAKE ONE TABLET EVERY NIGHT AT BEDTIME 30 tablet Active glipiZIDE XL (Glucotrol XL) 5 MG 24 hr tabletIndications :Type 2 diabetes mellitus with diabetic polyneuropathy (HCC) TAKE ONE TABLET EVERY MORNING WITH BREAKFAST 30 tablet Active tamsulosin (Flomax) 0.4 MG 24 hr capsule TAKE ONE CAPSULE EVERY EVENING 30 capsule Active atorvastatin (Lipitor) 40 MG tablet Take 1 tablet (40 mg) by mouth Once per day. 30 tablet Active metFORMIN (Glucophage) 1000 MG tablet TAKE ONE TABLET IN THE MORNING AND EVENING 60 tablet Active gabapentin (Neurontin) 600 MG tabletIndications :Type 2 diabetes mellitus with hyperglycemia, without long-term current use of insulin (HCC) TAKE ONE TABLET THREE TIMES DAILY IN THE MORNING, EVENING AND BEDTIME 90 tablet Active baclofen (Lioresal) 10 MG tabletIndications :Back pain, unspecified back location, unspecified back pain laterality, unspecified chronicity TAKE ONE TABLET TWICE DAILY 30 tablet 3 Active lidocaine (Lidoderm) 5 % patchIndications: Spinal [...] Do not crush or chew. 30 tablet Active nitroglycerin (Nitrostat) 0.4 MG SL tabletIndications :Atherosclerosis of kot[place] coronary artery of kot[place] heart without angina pectoris take 1 Tablet by Sublingual route every 5 minutes As needed for Chest pain 90 tablet 3 025 Active FREESTYLE LITE test stripIndications: Type 2 diabetes mellitus without complication, without long-term current use of insulin ([facility]) Use to test blood sugar 2 times daily 100 each 12 025 2025 Active Lancets miscIndications:T ype 2 diabetes mellitus without complication, without long-term current use of insulin ([facility]) Use to test blood sugar 2 times daily 100 each 025 Active Alcohol Swabs 70 % padsIndications:T ype 2 diabetes mellitus without complication, without long-term current use of insulin ([facility]) Use to test blood sugar 2 times daily 100 each Active Blood Glucose Monitoring Suppl (FreeStyle [place] Lite) w/Device kitIndications:Ty pe 2 diabetes mellitus without complication, without long-term current use of insulin ([facility]) Use to test blood sugar 2 times daily 1 kit Active Sodium Fluoride 1.1 % creamIndications: Dental caries Fedora teeth for 2 minutes, morning and night. Spit, do not rinse. Do not eat or drink anything for 30 minutes following use. 112 g 3 025 Active lisinopril 10 MG tabletIndications :Essential hypertension Take 1 tablet (10 mg) by mouth Once per day. 90 tablet 3 025 2025 Active Diclofenac Sodium 1 % gelIndications:Ne ck pain To apply to the affected area 3 times a day. 100 g 025 Active oxyCODONE (Roxicodone) 5 MG immediate release tabletIndications :Back pain, unspecified back location, unspecified back pain laterality, unspecified chronicity,Chroni c midline low back pain without sciatica TAKE ONE-HALF TABLET EVERY 8 HOURS NEEDED FOR SEVERE PAIN 21 tablet 025 Active oxyCODONE (Roxicodone) 5 MG immediate release tabletIndications :Back pain, unspecified back location, unspecified back pain laterality, unspecified chronicity,Chroni c midline low back pain without sciatica Take 0.5 tablets (2.5 mg) by mouth every 8 (eight) hours if needed for severe pain for up to 14 days. 21 tablet 025 2024 Discontinued lisinopril 5 MG tabletIndications :Essential hypertension Take 1 tablet (5 mg) by mouth Once per day. 30 tablet 11 025 2024 Discontinued(R eorder (will not trigger notification to Pharmacy)) Active Problems Problem Noted Date Diagnosed Date CAD (coronary artery disease) 12/30/2024 CORIE (obstructive sleep apnea) 12/29/2024 Severe obesity (BMI 35.0-39.9) with comorbidity (CMS/HCC) 12/29/2024 Hypercholesteremia 12/29/2024 Neck pain 12/29/2024 Long-term current use of opiate analgesic 2024 Cervical radiculopathy 04/04/2024 Degenerative disc disease, cervical 04/04/2024 COPD (chronic obstructive pulmonary disease) 10/202203/03/2023 Achalasia 03/03/2023 03/03/2023 Disease due to severe acute respiratory syndrome coronavirus 2 (SARS-CoV-2) 11/07/2022 Overview (12/29/2024): Problem added by Discern Expert Adrenal mass 03/09/2020 Atherosclerosis of kotlik co ronary artery of kot[place] heart without angina pectoris 07/26/2018 Gastrocnemius tendon rupture 07/26/2018 Bilateral recurrent inguinal hernia 02/12/2015 Controlled type 2 diabetes with neuropathy 05/27 Headache 05/27/2011 Tobacco dependence syndrome 05/27/2011 Hypertension 12/20/2010 Depressive disorder 11/20/2010 Anxiety state 04/05/2010 Encounters Date Type Department Care Team Description 02/14/2025 9:00 AM EDT Clinical Support [facility] [address] [place] [address] Marisol Thomas RN Back pain, unspecified back location, unspecified back pain laterality, unspecified chronicity (Primary Dx) 02/14/2025 Travel 01/25/2025 9:00 AM EDT Office Visit [facility] [address] [place] [address] Gonzales Brennan MD Primary hypertension (Primary Dx); Controlled type 2 diabetes with neuropathy (HCC); Dietary counseling; Exercise counseling; Class 1 obesity due to excess calories with serious comorbidity and body mass index (BMI) of 32.0 to 32.9 in adult; Encounter for immunization; Encounter for vaccination; Essential hypertension; Neck pain 01/25/2025 Refill [facility] [address] [place] [address] Luann Adrian MD Back pain, unspecified back location, unspecified back pain laterality, unspecified chronicity; Chronic midline low back pain without sciatica 01/25/2025 Travel 01/16/2025 9:30 AM EDT Clinical Support [facility] [address] [place] [address] Haley Guillen RN Primary hypertension 01/16/2025 Travel 01/11/2025 Telephone [place] [employer] [address] [place] [address] [phone] Luann Adrian MD MRI CERVICAL SPINE DENIED 01/09/2025 9:00 AM EDT Office Visit [facility] [address] [place] [address] Louis Brennan Dental caries (Primary Dx); Dental calculus; Removable partial denture with loss of retention 01/02/2025 10:15 AM EDT Office Visit [facility] [address] [place] [address] Gonzales Brennan MD Type 2 diabetes mellitus without complication, without long-term current use of insulin ([facility]); Essential hypertension 01/02/2025 Travel 12/30/2024 9:00 AM EDT Office Visit [facility] [address] [place] [address] Diaz Merida DMD 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 (Primary Dx) 12/30/2024 Telephone [facility] [address] [place] [address] Gonzales Brennan MD chart prep 12/29/2024 10:45 AM EDT Office Visit [facility] [address] [place] [address] Luann Adrian MD NATHANIEL (acute kidney injury) ([facility]/HCC) (Primary Dx); Essential hypertension; Back pain, unspecified back location, unspecified back pain laterality, unspecified chronicity; Chronic midline low back pain without sciatica; Atherosclerosis of kotlik coronary artery of kot[place] heart without angina pectoris; Controlled type 2 diabetes with neuropathy (CMS/[facility]); Neck pain 12/29/2024 Travel 12/27/2024 Patient Outreach [address] [address] Gonzales Brennan MD Transition Of Care (Tcm) (HDF scheduled and SDOH screening completed on 10/24/24 ) 12/27/2024 Patient Outreach [facility] [address] [place] [phone] Gonzales Brennan MD Transition Of Care (Tcm) (HDF unscheduled LVM ) 12/27/2024 Telephone [facility] [address] [place] [address] Gonzales Brennan MD Hospital Follow-up 12/22/2024 Refill [facility] [address] [place] [address] Gonzales Brennan MD 12/13/2024 8:00 AM EDT Office Visit [facility] [address] [place] [address] Diaz Merida DMD Dental caries (Primary Dx) 12/07/2024 2:00 PM EDT Office Visit [facility] [address] [place] [address] Gonzales Brennan MD Spinal stenosis, cervical region (Primary Dx) 12/07/2024 Travel 12/06/2024 Telephone [facility] [address] [place] [address] Gonzales Brennan MD 12/05/2024 Telephone [facility] [address] [place] [address] Gonzales Brennan MD 12/05/2024 Refill [facility] [address] [place] [address] Gonzales Brennan MD Back pain, unspecified back location, unspecified back pain laterality, unspecified chronicity; Chronic midline low back pain without sciatica 12/02/2024 Telephone [facility] [address] [place] [phone] Gonzales Brennan MD 12/02/2024 Refill [facility] [address] [place] [address] Gonzales Brennan MD Back pain, unspecified back location, unspecified back pain laterality, unspecified chronicity 12/01/2024 Telephone [facility] [address] [place] [address] Gonzales Brennan MD Medication Question 12/01/[address] [address] Gonzales Brennan MD 11/30/[address] [address] Gonzales Brennan MD Medication Concerns 11/29/2024 Telephone [facility] [address] [place] [address] Gonzales Brennan MD Med Refill; Medication Question 11/22/2024 Refill [facility] [address] [place] [address] Gonzales Brennan MD Back pain, unspecified back location, unspecified back pain laterality, unspecified chronicity; Chronic midline low back pain without sciatica from Last 3 Months Immunizations Immunization Administration Dates Next Due Influenza High-dose Quadriva lent Preservative Free 01/28/2023,01/10/2022,02/07/2021,03/29 Influenza injectable quadriv alent IIV4 with preservative 04/14/2019,02/23/2017,03/13/2016 Influenza injectable quadriv alent preservative free 02/08/2015 Influenza, IIV3, injectable 02/10/2014, 1 Influenza, Split (incl. stoney fied surface antigen) 02/08/2013 Influenza, seasonal, injecta ble, preservative free 01/25/2025 Pfizer Covid-19 Vaccine 12+ 01/25/2025 Pneumococcal Conjugate PCV 13 06/10/2021 Pneumococcal Conjugate [...] Sign Reading Time Taken Comments Blood Pressure 141/75 01/25/2025 9:02 AM EDT Pulse 61 01/25/2025 9:02 AM EDT Temperature 36.8 C (98.2 F) 01/02/2025 10:28 AM EDT Respiratory Rate 20 01/25/2025 9:02 AM EDT Oxygen Saturation 95% 01/25/2025 9:02 AM EDT Inhaled Oxygen Concentration - - Weight 99.3 kg (219 lb) 01/25/2025 9:02 AM EDT Height 174 cm (5' 8.5 ) 01/25/2025 9:02 AM EDT Body Mass Index 32.81 01/25/2025 9:02 AM EDT Plan of Treatment Upcoming Encounters Date Type Department Care Team (Late st Contact Info) Description 05/30/2025 9:00 AM EST Clinical Support [facility] [address] [place] [address] Marisol Thomas, LEVI [address] [place] [address] 07/10/2025 8:00 AM EDT Office Visit [facility] [address] [place] [address] Louis Brennan Health Maintenance Due Date Last Done Comments CT Colonography 1954 FIT DNA/Cologuard 1954 FIT 1954 FOBT 1954 Sigmoidoscopy 1954 Diabetes: Foot Exam 1964 Lung Cancer Screening 2004 RSV Patients and Patients Aged 60 years or older (1 - Risk 60-74 years 1-dose series) 2014 Eye Exam 12/01/2024 Diabetes: Urine Protein Screening 02/25/2025 02/26/2024, 06/10/2021, 02/19/2021 Dental X-Ray: Bitewings 03/30/2025 03/29/2024, 05/01 Diabetes: Hemoglobin A1C 07/02/2025 025, 10/24/2024, 11/23/2023, Additional history exists Dental Oral Exam 07/10/2025 01/09/2025, 06/2023, 11/19/2018, Additional history exists Dental Prophylaxis 07/10/2025 01/09/2025, 1 05/08/2023, 12/06/2018, Additional history exists COVID-19 Vaccine ( season) 2025 01/25/2025, 02/12/2021, 07/25/2020, Additional history exists Alcohol/Substance Use Screening 10/24/2025 10/24/2024 Depression Screening 10/24/2025 10/24/2024, 07/11/19 23 Lipid Panel 10/24/2025 10/24/2024, 04/2023, 06/10/2021, Additional history exists SDOH Screening 10/24/2025 10/24/2024 Tobacco Screening 01/25/2026 01/25/2025 Colonoscopy 02/06/2026 02/06/2023 Colorectal Cancer Screening 02/06/2026 Dental X-Ray: Full Mouth 03/09/2027 03/08/2024, 08/2010 DTaP/Tdap/Td Vaccines (5 - Td or Tdap) 11/22/2033 11/23/2023, 08/27/2013, 08/27/2013, Additional history exists Hepatitis C Screening Completed 06/10/2021 Zoster Vaccines Completed 12/24/2021, 09/26, 08/23/2015 Pneumococcal Vaccine: 50+ Years Completed 11/23/2023, 06/10/2021, 11/20/2011, Additional history exists Influenza Vaccine Completed 01/25/2025, , 01/10/2022, Additional history exists HIB Vaccines Aged Out [...] Comments POCT LUZMA-14 URINE DRUG SCREEN Routine 02/14/2025 9:36 AM EDT Back pain, unspecified back location, unspecified back pain laterality, unspecified chronicity PERIODIC ORAL EVALUATION - ESTABLISHED PATIENT Routine 01/09/2025 9:00 AM EDT Dental caries Removable partial denture with loss of retention CASE PRESENTATION, DETAILED AND EXTENSIVE TREATMENT PLANNING Routine 01/09/2025 9:00 AM EDT Dental caries Dental calculus Removable partial denture with loss of retention ORAL HYGIENE INSTRUCTIONS Routine 01/09/2025 9:00 AM EDT DENTURE ADJUSTMENT Routine 01/09/2025 9: 00 AM EDT Removable partial denture with loss of retention PROPHYLAXIS - ADULT Routine 01/09/2025 9 :00 AM EDT POCT GLYCATED HEMOGLOBIN, TOTAL Routine 01/02/2025 10:31 AM EDT Type 2 diabetes mellitus without complication, without long-term current use of insulin ([facility]) POCT GLUCOSE Routine 01/02/2025 10:30 AM EDT Type 2 diabetes mellitus without complication, without long-term current use of insulin ([facility]) CASE PRESENTATION, DETAILED AND EXTENSIVE TREATMENT PLANNING Routine 12/30/2024 9:00 AM EDT 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 27 MIDFL RESIN-BASED COMPOSITE - 4 OR MORE SURFACES (ANTERIOR) Routine 12/30/2024 9:00 AM EDT 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 BASIC METABOLIC PANEL Routine 12/30/2024 8:16 AM EDT NATHANIEL (acute kidney injury) ([facility]) CASE PRESENTATION, DETAILED AND EXTENSIVE TREATMENT PLANNING Routine 12/13/2024 8:00 AM EDT Dental caries 26 MDFL RESIN-BASED COMPOSITE - 4 OR MORE SURFACES (ANTERIOR) Routine 12/13/2024 8:00 AM EDT Dental caries LIPID PANEL, STANDARD Routine 10/24/2024 2:17 PM EDT Pre-op evaluation BITEWINGS - 2 RADIOGRAPHIC IMAGES Routine 03/29/2024 3:00 PM EST Dental caries Periodontal disease PANORAMIC RADIOGRAPHIC IMAGE Routine 03/08/2024 1:00 PM EST ALBUMIN, RANDOM URINE W/CREATININE Routine 02/26/2024 2:00 PM EDT Controlled type 2 diabetes with neuropathy (CMS/HCC) COLONOSCOPY Routine 02/06/2023 ZZZ HISTORICAL HEPATITIS C AB W/REFL TO HCV RNA, QN, PCR Routine 06/10/2021 11:50 AM EST from Last 3 Months or Most Recently Relevant to Health Maintenance Results * POCT LUZMA-14 Urine Drug Screen (02/14/2025 9:36 AM EDT) THC Negative Negative Cocaine Screen, Urine Negative Negative Opiate Screen, Urine Negative Negative Methamphetamine Screen Urine Negative Negative Amphetamine Screen, Urine Negative Negative Benzodiazepines Screen, Urine Negative Negative Barbiturate Screen, Urine Negative Negative Methadone Screen, Urine Negative Negative Buprenophine Screen, Urine Negative Negative TCA, Urine Negative Negative MDMA Urine Negative Negative ng/mL Oxycodone Screen, Urine Negative Negative Phencyclidine (PCP), Urine Negative Negative Propoxyphene, Urine Negative Negative Fentanyl, Urine Negative Negative Urine Urine specimen obtained by clean catch procedure / Unknown 02/14/2025 9:36 AM EDT Narrative Marisol Thomas RN - 02/14/2025 9:36 AM EDT . Internal Pass Control Lot# [id number] Exp: 02-24-26 us Gonzales Brennan MD POINT OF CARE TEST ENTER/ED IT ORDERABLES Final Result * (ABNORMAL) POCT Hgb A1c (01/02/2025 10:31 AM EDT) Hemoglobin A1C 6.4(A) 4.0 - 5.7 % QC Media Lot # [id number] Lot# Expiration Date Blood 01/02/2025 10:3 1 AM EDT Gonzales Brennan MD POINT OF CARE TEST ENTER/ED IT ORDERABLES Final Result * (ABNORMAL) POCT Glucose (01/02/2025 10:30 AM EDT) [facility] Glucose Blood, POC 206(A) 60 - 200 mg/dL QC Media Lot # [id number] Comment:random Lot# Expiration Date Blood Capillary blood specimen / Unknown 01/02/2025 10:30 AM EDT Gonzales Brennan MD POINT OF CARE TEST ENTER/ED IT ORDERABLES Final Result * (ABNORMAL) Basic Metabolic Panel (12/30/2024 8:16 AM EDT) [facility] Sodium 141 135 - 145 mmol/L [facility] Potassium 3.7 3.3 - 5.1 mmol/L [facility] Chloride 104 96 - 108 mmol/L [facility] Carbon Dioxide 28 22 - 29 mmol/L [facility] Anion Gap 13 12 - 20 [facility] Urea Nitrogen (BUN) 17(H) 9 - 16 mg/dL [facility] Creatinine, Serum 1.14 0.5 - 1.4 mg/dL [facility] Estimated Glomerular Filt Rate >60 [facility] Comment:Chronic Kidney Disea se: Estimated GFR < 60 mL/min/[id number] Kidney Disease: Estimated GFR < 15 mL/min/1.73m2 Glucose 118(H) 60 - 115 mg/dL [facility] Calcium 9.0 8.4 - 10.2 mg/dL [facility] Blood Venous blood specimen / Unknown 12/30/2024 8:16 AM EDT 12/30/2024 11:47 AM EDT us Luann Adrian MD LAB BLOOD ORDERABLES Final Re sult Performing Organization Address [facility]/ZIP Co de Phone Number [facility] [address] [place] [address] [phone] * (ABNORMAL) Lipid Panel, Standard (10/24/2024 2:17 PM EDT) Triglycerides 190(H) <150 mg/dL [facility] Comment:Desirable Triglyceri de: less than 150 mg/dLBorderline High Triglyceride 150-199 mg/dLHigh Triglyceride: 200-499 mg/dLVery High Triglyceride: greater than or equal to 5OO mg/dL Cholesterol 139 <200 mg/dL [facility] Comment:Desirable Cholestero l: less than 200 mg/dLBorderline High Cholesterol: 200-239 mg/dLHigh Cholesterol: greater than 239 mg/dL LDL Cholesterol Calculated 68 <100 mg/dL [facility] Comment:Desirable LDL: less than 100 mg/dLNear Optimal/Above Optimal LDL: 110- 129 mg/dLBorderline High LDL: 130-159 mg/dLHigh LDL: 160-189 mg/dLVery High LDL: greater than or equal to 190 mg/dL HDL Cholesterol 33(L) >40 mg/dL [facility] Comment:Desirable HDL: great er than 40 mg/dL Note: This HDL assay may give artificially low results in patients with liver disease. Blood Venous blood specimen / Unknown 10/24/2024 2:17 PM EDT 10/24/2024 2:17 PM EDT us Gonzales Brennan MD LAB BLOOD ORDERABLES Final Result Performing Organization Address City/[facility]/ZIP Co de Phone Number [facility] [address] [place] [address] [phone] * (ABNORMAL) Albumin, Random Urine W/Creatinine (02/26/2024 2:00 PM EDT) Creatinine, Urine 122.05 mg/dL [facility] Microalbumin Urine 1,421.0 mg/L H [facility] Microalbum Creatinine Ratio Ur 1,164.2(H ) <30 ug/mg cr [facility] Comment:Albumin/Creatinine R atio Reference Ranges: Normal: < 30 ug/mg creatinine Microalbuminuria: 30 - 300 ug/mg creatinineClinical Albuminuria: > 300 ug/mg creatinine Urine (Urine, Random) 02/26/2024 2:00 PM EDT 02/26/2024 5:55 PM EDT Gonzales Brennan MD LAB URINE ORDERABLES Final Result Performing Organization Address [facility] Co de Phone Number [facility] [address] [place] [address] [phone] * Colonoscopy (02/06/2023) Anatomical Region Laterality Modality Endoscopy Narrative 02/06/2023 3 polyps Gonzales Brennan MD ENDOSCOPY PROCEDURE ORDERAB LES Final Result * HEPATITIS C AB W/REFL TO HCV RNA, QN, PCR (06/10/2021 11:50 AM EST) HEPATITIS C ANTIBODY NON-REACT [facility] NON-REACT [facility] INDEX 0.23 <1.00 [facility] Comment: HCV antibody was non-reactive. There is no laboratory evidence of HCV infection. In most cases, no further action is required. However, if recent HCV exposure is suspected, a test for HCV RNA (test code 41615) is suggested. For additional information please refer to http://[email or web address].[employer]/faq/SNU82a0 (This link is being provided for informational/ educational purposes only.) 06/10/2021 11:5 0 AM EST us Gonzales Brennan MD HISTORICAL/NON ORDERABLE LA BS Final Result Performing Organization Address City/[facility]/ZIP Co de Phone Number [facility] [address] [place] [address], from Last 3 Months or Most Recently Relevant to Health Maintenance Insurance [employer] MEDICARE REPLACEMENT DENTAL - HSN FULL (MEDICAID) Care Teams Export Freight Specialist Relationship Specialty Start Date End Date Gonzales Brennan MD [address] [place] [phone] PCP - General Internal Medicine 04/27/18
--- OUTSIDE RECORDS SUMMARY | 2025-02-22 10:05 | XMS_ITS | Encounter Summary ---
Author Organization [employer] Address [address] [facility] 7t [place] [address] Care Team Providers Care Concrete Smoother Name Role Phone Gonzales Brennan MD Primary Care Provider +1 [phone] Encounter Details Date Type Department Care Team ([facility] st Contact Info) Description 02/24/2024 Orders Only [facility] CHC MED & PEDS [address] [place], [place] [phone] Gonzales Brennan MD 505 [place], [place] [phone] Controlled type 2 diabetes with neuropathy (CMS/HCC) [...] Description 05/30/2025 9:00 AM EST Clinical Support [facility] MED & PEDS [address] [place] [address] Marisol Thomas RN 505 [place] [address] 07/10/2025 8:00 AM EDT Office Visit [facility] ADULT DENTAL [address] [place] [address] Lousi Brennan documented as of this encounter Procedures Procedure Name Priority Date/Time Associated Diagnosis Comments ALBUMIN, RANDOM URINE W/CREATININE Routine 02/26/2024 2:00 PM EDT Controlled type 2 diabetes with neuropathy ([facility]/HCC) documented in this encounter Results * (ABNORMAL) Albumin, Random Urine W/Creatinine (02/26/2024 2:00 PM EDT) Creatinine, Urine 122.05 mg/dL [facility] Microalbumin Urine 1,421.0 mg/L [facility] Microalbum Creatinine Ratio Ur 1,164.2(H ) <30 ug/mg cr [facility] Comment:Albumin/Creatinine R atio Reference Ranges: Normal: < 30 ug/mg creatinine Microalbuminuria: 30 - 300 ug/mg creatinineClinical Albuminuria: > 300 ug/mg creatinine Urine (Urine, Random) 02/26/2024 2:00 PM EDT 02/26/2024 5:55 PM EDT us Gonzales Brennan MD LAB URINE ORDERABLES Final Result [facility] [address] [place] [address] [phone] documented in this encounter Visit Diagnoses Diagnosis Controlled type 2 diabetes with neuropathy (HCC)- Primary Type II or unspecified type diabetes mellitus with neurological manifestations, not stated as uncontrolled documented in this encounter Additional Health Concerns Assessment Noted Time PHQ-9 Depression Total Score: 0 07/11/19 23 3:46 PM EDT documented as of this encounter Care Teams Concrete Smoother Relationship Specialty Start Date End Date Gonzales Brennan MD [address] [place] [address] PCP - General Internal Medicine 04/27/18 documented as of this encounter
--- OUTSIDE RECORDS SUMMARY | 2025-02-22 10:05 | XMS_ITS | Encounter Summary ---
Author Organization [employer] Address [address] [facility] 7t [place] [address] Care Team Providers Care Manager Golf Name Role Phone Gonzales Brennan MD Primary Care Provider [phone] [phone] Encounter Details Date Type Department Care Team (Late st Contact Info) Description 12/01/2024 Telephone [facility] MEDICINE [address] [place] [address] Gonzales Brennan MD [address] [place] [address] Social History Tobacco Use Types Packs/Day Years [...] Description 05/30/2025 9:00 AM EST Clinical Support [facility] MED & PEDS 505 [place] [address] Marisol Thomas, RN 505 [place] [address] 07/10/2025 8:00 AM EDT Office Visit [facility] ADULT DENTAL 505 [place] [address] Louis Brennan documented as of this encounter Visit Diagnoses Not on filedocumented in this encounter Additional Health Concerns Assessment Noted Time PHQ-9 Depression Total Score: 0 07/11/19 23 3:46 PM EDT documented as of this encounter Care Teams Manager Golf Relationship Specialty Start Date End Date Gonzales Brennan MD 505 [place] [address] PCP - General Internal Medicine 04/27/18 documented as of this encounter
--- OUTSIDE RECORDS SUMMARY | 2025-02-22 10:05 | XMS_ITS | Encounter Summary ---
Author Organization [employer] Address [address] [facility] 7t [place] [address] Care Team Providers Care Instrument And Controls Technician Name Role Phone Gonzales Brennan MD Primary Care Provider [phone] Encounter Details Date Type Department Care Team (Late st Contact Info) Description 12/02/2024 Telephone [facility] MEDICINE [address] [place] [address] Gonzales Brennan MD 505 [place] [address] Social History Tobacco Use Types Packs/Day Years [...] Description 05/30/2025 9:00 AM EST Clinical Support [facility] MED & PEDS 505 [place] [address] Marisol Thomas, RN 505 [place] [address] 07/10/2025 8:00 AM EDT Office Visit [facility] ADULT DENTAL 505 [place] [address] Louis Brennan documented as of this encounter Visit Diagnoses Not on filedocumented in this encounter Additional Health Concerns Assessment Noted Time PHQ-9 Depression Total Score: 0 07/11/19 23 3:46 PM EDT documented as of this encounter Care Teams Instrument And Controls Technician Relationship Specialty Start Date End Date Gonzales Brennan MD 505 [place] [address] PCP - General Internal Medicine 04/27/18 documented as of this encounter
--- OUTSIDE RECORDS SUMMARY | 2025-02-22 10:05 | XMS_ITS | Encounter Summary ---
Author Organization [employer] Address [address] [place] [address] 7 [place] [address] Care Team Providers Care Family Day Carer Name Role Phone Gonzales Brennan MD Primary Care Provider +1 [phone] Encounter Details Date Type Department Care Team (Latest Contact Info) Description 12/03/2018 Abstract [facility] CONVERSIONS Dental, Provider, DDS Social History [...] Description 05/30/2025 9:00 AM EST Clinical Support [facility] MED & PEDS 505 [place] [address] Marisol Thomas, RN 505 [place] [address] 07/10/2025 8:00 AM EDT Office Visit [facility] ADULT DENTAL 505 [place] [address] Louis Brennan documented as of this encounter Visit Diagnoses Not on filedocumented in this encounter Care Teams Family Day Carer Relationship Specialty Start Date End Date Gonzales Brennan MD 505 [place] [address] PCP - General Internal Medicine 04/27/18 documented as of this encounter
--- OUTSIDE RECORDS SUMMARY | 2025-02-22 10:05 | XMS_ITS | Encounter Summary ---
Author Organization [employer] Address [address] [facility] 7 [place] [address] Care Team Providers Care Supreme Court Judge Name Role Phone Gonzales Brennan MD Primary Care Provider [phone] Reason for Visit * Reason Onset Date Comments Med Refill 11/29/2024 Medication Question 11/29/2024 Encounter Details Date Type Department Care Team ([facility] st Contact Info) Description 11/29/2024 Telephone [facility] CHC MED & PEDS 505 [place] [address] Gonzales Brennan MD 505 [place] [address] Med Refill; Medication Question Social History Tobacco [...] immediate release tablet To be sent to: [facility] [place], [place] - [address] [facility] Pt stated he picked up script today but got home and it is not in bag. Pt stated he searched his car but medication is nowhere to be found. Contact pt at [phone] documented in this encounter Plan of Treatment Upcoming Encounters Date Type Department Care Team ([facility] st Contact Info) Description 05/30/2025 9:00 AM EST Clinical Support [facility] MED & PEDS 505 [place] [address] Marisol Thomas, LEVI 505 [place] [address] 07/10/2025 8:00 AM EDT Office Visit [facility] ADULT DENTAL [address] [place] [address] Louis Brennan documented as of this encounter Visit Diagnoses Not on filedocumented in this encounter Additional Health Concerns Assessment Noted Time PHQ-9 Depression Total Score: 0 07/11/19 23 3:46 PM EDT documented as of this encounter Care Teams Supreme Court Judge Relationship Specialty Start Date End Date Gonzales Brennan MD [address] [place] [address] PCP - General Internal Medicine 04/27/18 documented as of this encounter
--- OUTSIDE RECORDS SUMMARY | 2025-02-22 10:05 | XMS_ITS | Encounter Summary ---
Author Organization [employer] Address [address] [facility] 7 [place] [address] Care Team Providers Care Logistics Analytics Manager Name Role Phone Gonzales Brennan MD Primary Care Provider [phone] Reason for Visit * Reason Onset Date Comments Hospital Follow-up 12/27/2024 Encounter Details Date Type Department Care Team ([facility] st Contact Info) Description 12/27/2024 Telephone [facility] MED & PEDS 505 [place], [place] [phone] Gonzales Brennan MD 505 [place] [address] Hospital Follow-up Social History Tobacco Use Types [...] requesting a HDF appt. [facility] [facility] Date of admission: 12/24 Discharge date: 12/25 Diagnosed: pt in icu unit , checked himself out against physican , pt states he was in hospital dueto his bp being extremely low 85/50 *Send message to [place] Clinical Care Coordinators documented in this encounter Plan of Treatment Upcoming Encounters Date Type Department Care Team (Late st Contact Info) Description 05/30/2025 9:00 AM EST Clinical Support [facility] MED & PEDS 505 [place] [address] Marisol Thomas RN 505 [place] [address] 07/10/2025 8:00 AM EDT Office Visit [facility] ADULT DENTAL [address] [place] [address] Louis Brennan documented as of this encounter Visit Diagnoses Not on filedocumented in this encounter Additional Health Concerns Assessment Noted Time PHQ-9 Depression Total Score: 0 07/11/19 23 3:46 PM EDT documented as of this encounter Care Teams Logistics Analytics Manager Relationship Specialty Start Date End Date Gonzales Brennan MD [address] [place] [address] PCP - General Internal Medicine 04/27/18 documented as of this encounter
--- OUTSIDE RECORDS SUMMARY | 2025-02-22 10:05 | XMS_ITS | Encounter Summary ---
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 MED & PEDS 505 [place] [address] Marisol Thomas RN 505 [place] [address] 07/10/2025 8:00 AM EDT Office Visit 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
--- OUTSIDE RECORDS SUMMARY | 2025-02-22 10:05 | XMS_ITS | Clinical Summary ---
Author Organization [employer] [facility] Address [address] [place] [address] Phone Care Team Providers Care Elevator Technician Name Role Phone Gonzales Brennan MD Primary Care Pr ovider Jonah Umanzor MD Unavailable [phone] Allergies Active Allergy Reactions Criticality Noted Date [...] Medical Devices Not on file Insurance #1 [place] [address] MEDICARE PART A & B [employer] NET FULL MEDICARE PART A & B [employer] NET FULL MEDICARE PART A & B [employer] [facility] FULL MEDICARE PART A & B FULL MEDICARE PART A & B [employer] the [employer] [facility] FULL #1 [place] [address] MEDICARE PART A & B FULL #1 [place] [address] MEDICARE PART A & B FULL #1 [place] [address] MEDICARE PART A & B FULL #1 [place] [address] MEDICARE PART A & B [facility] FULL Care Teams Elevator Technician Relationship Specialty Start Date End Date Gonzales Brennan MD [address] [place] [address] 1 [place] [address] PCP - General Internal Medicine 03/13/20 Jonah Umanzor MD [address] [place] [address] [address] [place] [address] Cardiology 04/16/20 Additional Source Comments The information contained in this document represents components of the legal health record. It is not the complete legal health record.[facility]
--- OUTSIDE RECORDS SUMMARY | 2025-02-22 10:05 | XMS_ITS | Encounter Summary ---
Author Organization [employer] [facility] Address [address] [place] [address] Phone Care Team Providers Care Emergency Response Technician Name Role Phone Gonzales Brennan MD Primary Care Pr ovider Jonah Umanzor MD Unavailable [phone] Encounter Details Date Type Department Care Team (Late st Contact Info) Description 04/23/2020 Procedure Pass [facility] PERIOPERATIVE DEPT [address] [place] [address] Social History Tobacco Use Types [...] on filedocumented in this encounter Care Teams Emergency Response Technician Relationship Specialty Start Date End Date Gonzales Brennan MD [address] [facility] [address] [place] [address] PCP - General Internal Medicine 03/13/20 Jonah Umanzor MD [address] [place] [address] [address] [place] [address] Cardiology 04/16/20 documented as of this encounter Additional Source Comments The information contained in this document represents components of the legal health record. It is not the complete legal health record.[facility]
--- OUTSIDE RECORDS SUMMARY | 2025-02-22 10:05 | XMS_ITS | Encounter Summary ---
Author Organization [employer] Address [address] [facility] 7t [place] [address] Care Team Providers Care Roller Painter Name Role Phone Gonzales Brennan MD Primary Care Provider [phone] Reason for Visit * Reason Onset Date Comments returning call 09/02/2024 Encounter Details Date Type Department Care Team ([facility] st Contact Info) Description 09/02/2024 Telephone [facility] ADULT DENTAL 505 [place], [place] [phone] Diaz Merida, DMD 505 [place] [address] returning call Social History Tobacco Use Types [...] 05/30/2025 9:00 AM EST Clinical Support [facility] MED & PEDS 505 [place] [address] Marisol Thomas, LEVI 505 [place] [address] 07/10/2025 8:00 AM EDT Office Visit [facility] ADULT DENTAL 505 [place] [address] Louis Brennan documented as of this encounter Visit Diagnoses Not on filedocumented in this encounter Additional Health Concerns Assessment Noted Time PHQ-9 Depression Total Score: 0 07/11/19 23 3:46 PM EDT documented as of this encounter Care Teams Roller Painter Relationship Specialty Start Date End Date Gonzales Brennan MD 505 [place] [address] PCP - General Internal Medicine 04/27/18 documented as of this encounter
--- OUTSIDE RECORDS SUMMARY | 2025-02-22 10:05 | XMS_ITS | Encounter Summary ---
Author Organization [employer] Address 75 [facility] 7 [place] [address] Care Team Providers Care Golf Club Maker Name Role Phone Gonzales Brennan MD Primary Care Provider [phone] Reason for Visit * Reason Onset Date Comments Request For Order(s) 12/01/2023 Encounter Details Date Type Department Care Team ([facility] st Contact Info) Description 12/01/2023 Telephone [facility] MEDICINE [address] [place] [address] Gonzales Brennan MD [address] [place] [address] Request For Order(s) Social History Tobacco Use [...] Description 05/30/2025 9:00 AM EST Clinical Support [facility] MED & PEDS 505 [place] [address] Marisol Thomas, LEVI 505 [place] [address] 07/10/2025 8:00 AM EDT Office Visit [facility] ADULT DENTAL 505 [place] [address] Louis Brennan documented as of this encounter Visit Diagnoses Not on filedocumented in this encounter Additional Health Concerns Assessment Noted Time PHQ-9 Depression Total Score: 0 07/11/19 23 3:46 PM EDT documented as of this encounter Care Teams Golf Club Maker Relationship Specialty Start Date End Date Beauzile, Thevenin, MD [address] [place] [address] PCP - General Internal Medicine 04/27/18 documented as of this encounter
--- OUTSIDE RECORDS SUMMARY | 2025-02-22 10:05 | XMS_ITS | Clinical Summary ---
Author Organization [facility] Address [address] [place] [address] Care Team Providers Care Order Builder Name Role Phone Unavailable Primary Care Provider Unavailabl e Surgical History Surgery Date Site/Laterality Comments OTHER SURGICAL HISTORY Right PROCEDURE: [place] RESCJ&BRONCHOPLASTY PFRMD TM LOBEC/SGMECTOMY Medical History Medical History Date Comments COPD (chronic obstructive pu lmonary disease) (CMS/HCC V24, CMS/HCC V28) DX:COPD (chronic o bstructive pulmonary disease) ([facility]) Mixed hyperlipidemia DX:Mixed hy perlipidemia Essential (primary) [...] Documents on File Type Date Recorded Patient Crop Ranch Hand Expl anation Health Care Decision (hx) 08/01/2021 AD CERDA DIRECTIVE Health Care Decision (hx) 08/01/2021 AD CERDA DIRECTIVE
--- OUTSIDE RECORDS SUMMARY | 2025-02-22 10:05 | XMS_ITS | Encounter Summary ---
Author Organization [employer] Address [address] [facility] 7t [place] [address] Care Team Providers Care Dairy Technician Name Role Phone Gonzales Brennan MD Primary Care Provider [phone] Reason for Visit * Reason Onset Date Comments Referral 05/04/2024 Encounter Details Date Type Department Care Team ([facility] st Contact Info) Description 05/04/2024 Telephone [facility] MEDICINE [address] [place] [address] Gonzales Brennan MD [address] [place] [address] Referral Social History Tobacco Use Types Packs/Day [...] PM EST Most recent notes faxed to [phone]. * Telephone Encounter - Pia Philip - 05/04/2024 3:12 PM EST Tc from Laura [facility] stating referral was received with CT scan but no office notes, Laura stated she needs notes on referral to be faxed over to them. [phone] documented in this encounter Plan of Treatment Upcoming Encounters Date Type Department Care Team (Late st Contact Info) Description 05/30/2025 9:00 AM EST Clinical Support [facility] MED & PEDS 505 [place] [address] Marisol Thomas, LEVI 505 [place] [address] 07/10/2025 8:00 AM EDT Office Visit [facility] ADULT DENTAL 505 [place] [address] Louis Brennan documented as of this encounter Visit Diagnoses Not on filedocumented in this encounter Additional Health Concerns Assessment Noted Time PHQ-9 Depression Total Score: 0 07/11/19 23 3:46 PM EDT documented as of this encounter Care Teams Dairy Technician Relationship Specialty Start Date End Date Gonzales Brennan MD [address] [place] [address] PCP - General Internal Medicine 04/27/18 documented as of this encounter
--- OUTSIDE RECORDS SUMMARY | 2025-02-22 10:05 | XMS_ITS | Encounter Summary ---
Author Organization [employer] Address 75 [facility] 7t [place] [address] Care Team Providers Care Director Of Public Health Name Role Phone Gonzales Brennan MD Primary Care Provider [phone] Encounter Details Date Type Department Care Team (Late st Contact Info) Description 01/04/2024 Orders Only [facility] CHC MED & PEDS 505 [place], [place] [phone] Gonzales Brennan MD 505 [place], [place] [phone] Essential hypertension (Primary Dx) Social History Tobacco [...] Description 05/30/2025 9:00 AM EST Clinical Support [facility] MED & PEDS 505 [place] [address] Marisol Thomas, RN 505 [place] [address] 07/10/2025 8:00 AM EDT Office Visit [facility] ADULT DENTAL 505 [place] [address] Louis Brennan documented as of this encounter Procedures Procedure Name Priority Date/Time Associated Diagnosis Comments URINALYSIS, COMPLETE Routine 01/21/2024 10:50 AM EDT Essential hypertension BASIC METABOLIC PANEL Routine 01/21/2024 10:44 AM EDT Essential hypertension documented in this encounter Results * (ABNORMAL) Urinalysis Complete (01/21/2024 10:50 AM EDT) Color Urine Yellow [facility] Appearance Urine Clear [facility] PH 5.5 5.0 - 9.0 [facility] Glucose Urine UA Negative Negative mg/dL [facility] Urine Blood Negative Negative [facility] Specific [place] - Urine 1.025 1.005 - 1.025 [facility] Urine Protein 300 (3+)(A) Neg-Trace mg/dL [facility] Urine Ketones Negative Negative mg/dL [facility] Nitrite Urine Negative Negative [facility] Leukocyte Esterase Urine Negative Negative [facility] RBC Urine 0-2 0 - 2 /HPF [facility] Urine WBC 0-5 0 - 5 /HPF [facility] Urine Squamous Epithelial Cell 0-2 0 - 2 /HPF [facility] Urine Bacteria None Seen None Seen [facility] Hyaline Casts, Urine 0-2 0 - 2 /LPF [facility] Urine (Urine, Random) 01/21/2024 10:50 AM EDT 01/21/2024 2:10 PM EDT us Gonzales Brennan MD LAB URINE ORDERABLES Final Result [facility] [address] [place] [address] [phone] * (ABNORMAL) Basic Metabolic Panel (01/21/2024 10:44 AM EDT) Sodium 142 135 - 145 mmol/L [facility] Potassium 4.3 3.3 - 5.1 mmol/L [facility] Chloride 107 96 - 108 mmol/L [facility] Carbon Dioxide 27 22 - 29 mmol/L [facility] Anion Gap 12 12 - 20 [facility] Urea Nitrogen (BUN) 18(H) 9 - 16 mg/dL [facility] Creatinine, Serum 1.03 0.5 - 1.4 mg/dL [facility] Estimated Glomerular Filt Rate >60 [facility] Comment:NOTE: For -Am erican individuals, multiply the result by 1.210.Chronic Kidney Disease: Estimated GFR < 60 mL/min/1.23a8Vurohx Kidney Disease: Estimated GFR < 15 mL/min/1.73m2 Glucose 105 60 - 115 mg/dL [facility] Calcium 9.5 8.4 - 10.2 mg/dL [facility] Blood Venous blood specimen / Unknown 01/21/2024 10:44 AM EDT 01/21/2024 2:13 PM EDT Gonzales Brennan MD LAB BLOOD ORDERABLES Final Result [facility] [address] [place] [address] [phone] documented in this encounter Visit Diagnoses Diagnosis Essential hypertension- Primary Unspecified essential hypertension documented in this encounter Additional Health Concerns Assessment Noted Time PHQ-9 Depression Total Score: 0 07/11/19 23 3:46 PM EDT documented as of this encounter Care Teams Director Of Public Health Relationship Specialty Start Date End Date Gonzales Brennan MD [address] [place] [address] PCP - General Internal Medicine 04/27/18 documented as of this encounter
--- OUTSIDE RECORDS SUMMARY | 2025-02-22 10:05 | XMS_ITS | Encounter Summary ---
Author Organization [employer] Address [address] [facility] 7t [place] [address] Care Team Providers Care Bilingual Middle School Teacher Name Role Phone Gonzales Brennan MD Primary Care Provider +1 [phone] Encounter Details Date Type Department Care Team ([facility] st Contact Info) Description 12/02/2023 Orders Only [facility] MED & PEDS [address] [place], [place] [phone] Gonzales Brennan MD 505 [place], [place] [phone] Neck pain (Primary Dx) Social History Tobacco [...] Description 05/30/2025 9:00 AM EST Clinical Support [facility] MED & PEDS [address] [place] [address] Marisol Thomas RN 505 [place] [address] 07/10/2025 8:00 AM EDT Office Visit [facility] ADULT DENTAL [address] [place] [address] Louis Brennan Scheduled Orders Name Type Priority Associated Diagnoses [...] PM EDT Narrative 01/25/2024 3:47 PM EDT [address] [address] XRay Report Signed Patient: Sean Hinkle MR#: [id number] 2 : 1955 Acct:[id number] Age/Sex: 68 / M ADM Date: 12/03/23 Loc: JOAN Attending Dr: Gonzales Brennan MD Ordering Physician: Gonzales Brennan MD Date of Service: 12/03/23 Procedure(s): XR cervical spine 3V Accession Number(s): [id number] cc: Gonzales Brennan MD EXAMINATION: XR CERVICAL [...] 01/25/24 1544 DD/ 1338 TD/TT: 12/03/23 1350 Deportation Examiner: Procedure Note Donotuseinterpreter, Image - 01/25/[address] [address] XRay Report Signed Patient: Sean HinkleMR#: [id number] 2 : 5Acct:[id number] Age/Sex: 68 / MADM Date: 12/03/23 Loc: HO.XRAY Attending Dr: Gonzales Brennan MD Ordering Physician: Gonzales Brennan MD Date of Service: 12/03/23 Procedure(s): XR cervical spine 3V Accession Number(s): [id number] cc: Gonzales Brennan MD EXAMINATION: XR CERVICAL [...] 01/25/24 1544 DD/ 1338 TD/TT: 12/03/23 1350 Deportation Examiner: us Gonzales Brennan MD IMG XR PROCEDURES Final Res ult documented in this encounter Visit Diagnoses Diagnosis Neck pain- Primary Cervicalgia documented in this encounter Additional Health Concerns Assessment Noted Time PHQ-9 Depression Total Score: 0 07/11/19 23 3:46 PM EDT documented as of this encounter Care Teams Bilingual Middle School Teacher Relationship Specialty Start Date End Date Gonzales Brennan MD [address] [place] [address] PCP - General Internal Medicine 04/27/18 documented as of this encounter
--- OUTSIDE RECORDS SUMMARY | 2025-02-22 10:05 | XMS_ITS | Encounter Summary ---
Author Organization [employer] Address [address] [place] [address] 7 [place] [address] Care Team Providers Care Spring Maker Name Role Phone Gonzales Brennan MD Primary Care Provider [phone]- [phone] Reason for Visit * Reason Comments Med Refill Encounter Details Date Type Department Care Team ([facility] Contact Info) Description 05/19/2022 Refill [facility] MEDICINE [address] [place], [place] [phone] Gonzales Brennan MD 505 [place], [place] [phone] Chronic midline low back pain without sciatica [...] Department Care Team (Late Contact Info) Description 05/30/2025 9:00 AM EST Clinical Support [facility] MED & PEDS 505 [place] [address] Marisol Thomas, LEVI [address] [place], [place] [phone] 07/10/2025 8:00 AM EDT Office Visit [facility] ADULT DENTAL 505 [place] [address] Louis Brennan documented as of this encounter Visit Diagnoses Diagnosis Chronic midline low back pain without sciatica documented in this encounter Care Teams Spring Maker Relationship Specialty Start Date End Date Gonzales Brennan MD [address] [place] [address] PCP - General Internal Medicine 04/27/18 documented as of this encounter
--- OUTSIDE RECORDS SUMMARY | 2025-02-22 10:05 | XMS_ITS | Encounter Summary ---
Author Organization [employer] [facility] Address [address] [place] [address] Phone Care Team Providers Care Press Officer Name Role Phone Gonzales Brennan MD Primary Care Pr ovider Jonah Umanzor MD Unavailable Encounter Details Date Type Department Care Team (Late st Contact Info) Description 05/02/2020 Procedure Pass [facility] PERIOPERATIVE DEPT [address] [place] [address] Social History Tobacco Use Types [...] on filedocumented in this encounter Care Teams Press Officer Relationship Specialty Start Date End Date Gonzales Brennan MD [address] [facility] [address] [place] [address] PCP - General Internal Medicine 03/13/20 Jonah Umanzor MD [address] [place] [address] [address] [place] [address] Cardiology 04/16/20 documented as of this encounter Additional Source Comments The information contained in this document represents components of the legal health record. It is not the complete legal health record.[facility]
--- OUTSIDE RECORDS SUMMARY | 2025-02-22 10:05 | XMS_ITS | Encounter Summary ---
Author Organization [employer] Address [address] [facility] 7t [place] [address] Care Team Providers Care Visual Communications Instructor Name Role Phone Gonzales Brennan MD Primary Care Provider +1 [phone] Encounter Details Date Type Department Care Team ([facility] Contact Info) Description 08/22/2022 Orders Only [facility] MED & PEDS [address] [place] [address] Cinthia Rodas LPN Social History Tobacco Use [...] Upcoming Encounters Date Type Department Care Team ([facility] Contact Info) Description 05/30/2025 9:00 AM EST Clinical Support [facility] MED & PEDS [address] [place] [address] Marisol Thomas, RN 505 [place] [address] 07/10/2025 8:00 AM EDT Office Visit [facility] ADULT DENTAL [address] [place] [address] Louis Brennan documented as of this encounter Visit Diagnoses Not on filedocumented in this encounter Additional Health Concerns Assessment Noted Time PHQ-9 Depression Total Score: 0 07/11/19 23 3:46 PM EDT documented as of this encounter Care Teams Visual Communications Instructor Relationship Specialty Start Date End Date Gonzales Brennan MD 505 [place] [address] PCP - General Internal Medicine 04/27/18 documented as of this encounter
--- OUTSIDE RECORDS SUMMARY | 2025-02-22 10:05 | XMS_ITS | Encounter Summary ---
Author Organization [employer] Address [address] [place] [address] 7 [place] [address] Care Team Providers Care Culinary Arts Instructor Name Role Phone Gonzales Brennan MD Primary Care Provider [phone]- [phone] Reason for Referral * Imaging (Routine) - Closed Specialty Diagnoses / Procedures Referred By Thad rosales Referred To Contact Radiology Diagnoses Neck pain Procedures CT Cervical Spine w/o Contrast Gonzales Brennan MD [address] [place] [address] Phone: tel: fax: [address] Phone: tel: fax: Referral ID Status Reason Start Date Expiration Date Visits Re quested Visits Authorized [id number] Closed 01/27/2024 01/26/2025 1 1 Encounter Details Date Type Department Care Team (Late st Contact Info) Description 01/27/2024 Orders Only [facility] MED & PEDS [address] [place] [address] Gonzales Brennan MD [address] [place], [place] [phone] Neck pain (Primary Dx) Social History Tobacco [...] 9:00 AM EST Clinical Support [facility] MED & PEDS [address] [place] [address] Marisol Thomas RN 505 [place] [address] 07/10/2025 8:00 AM EDT Office Visit [facility] ADULT DENTAL [address] [place] [address] Louis Brennan documented as of this encounter Procedures Procedure Name Priority Date/Time Associated Diagnosis Comments CT CERVICAL SPINE WO CONTRAST Routine 02/02/2024 8:59 AM EDT Neck pain documented in this encounter Results * CT Cervical Spine w/o Contrast (02/02/2024 8:59 AM EDT) Anatomical Region Laterality Modality Spine, C-spine Computed Tomogra phy 02/02/2024 8:59 AM EDT Narrative 04/04/2024 11:41 AM EST [address] [address] [address] Scan Report Signed Patient: Sean Hinkle MR#: [id number] 2 : 1955 Acct:[id number] Age/Sex: 68 / M ADM Date: 02/02/24 Loc: HO.CT Attending Dr: Gonzales Brennan MD Ordering Physician: Gonzales Brennan MD Date of Service: 02/02/24 Procedure(s): CT cervical spine wo IV con Accession Number(s): [id number] cc: Gonzales Brennan MD EXAMINATION: CT CERVICAL [...] in OV> 04/04/24 1138 DD/ 0859 TD/TT: 02/02/249[address] Merchandise Executive: Procedure Note Donotuseinterpreter, Image - 04/04/[address] [address] [address] Scan Report Signed Patient: Sean HinkleMR#: [id number] 2 : 5Acct:[id number] Age/Sex: 68 / MADM Date: 02/02/24 Loc: HO.CT Attending Dr: Gonzales Brennan MD Ordering Physician: Gonzales Brennan MD Date of Service: 02/02/24 Procedure(s): CT cervical spine wo IV con Accession Number(s): [id number] cc: Gonzales Brennan MD EXAMINATION: CT CERVICAL [...] by: Taurus Trent MD 04/04/2024 11:38 AM [facility] [place] [place] Dictated By: Taurus Trent MD Signed By: <Electronically signed by Taurus Trent MD in OV> 04/04/24 1138 DD/ TD/TT: 02/02/2414 Merchandise Executive: Gonzales Brennan MD IMG CT PROCEDURES Final Res ult documented in this encounter Visit Diagnoses Diagnosis Neck pain- Primary Cervicalgia documented in this encounter Additional Health Concerns Assessment Noted Time PHQ-9 Depression Total Score: 0 07/11/19 23 3:46 PM EDT documented as of this encounter Care Teams Culinary Arts Instructor Relationship Specialty Start Date End Date Gonzales Brennan MD [address] [place] [address] PCP - General Internal Medicine 04/27/18 documented as of this encounter
--- OUTSIDE RECORDS SUMMARY | 2025-02-22 10:05 | XMS_ITS | Encounter Summary ---
Author Organization [employer] Address [address] [facility] 7 [place] [address] Care Team Providers Care Mail Room Name Role Phone Gonzales Brennan MD Primary Care Provider +1 [phone] Reason for Visit * Reason Onset Date Comments Hospital Follow-up 08/14/2023 Encounter Details Date Type Department Care Team ([facility] st Contact Info) Description 08/14/2023 Telephone [facility] MEDICINE [address] [place] [address] Gonzales Brennan MD 505 [place] [address] Hospital Follow-up Social History Tobacco Use Types [...] from pt requesting a HDF appt. [facility] Date of admission: 07/29 Discharge date: 08/10 Diagnosed: Pneumonia documented in this encounter Plan of Treatment Upcoming Encounters Date Type Department Care Team (Late st Contact Info) Description 05/30/2025 9:00 AM EST Clinical Support [facility] MED & PEDS [address] [place] [address] Marisol Thomas RN 505 [place] [address] 07/10/2025 8:00 AM EDT Office Visit [facility] ADULT DENTAL [address] [place] [address] Louis Brennan documented as of this encounter Visit Diagnoses Not on filedocumented in this encounter Additional Health Concerns Assessment Noted Time PHQ-9 Depression Total Score: 0 07/11/19 23 3:46 PM EDT documented as of this encounter Care Teams Mail Room Relationship Specialty Start Date End Date Gonzales Brennan MD [address] [place] [address] PCP - General Internal Medicine 04/27/18 documented as of this encounter
== END 2025-02-22 09:14 | disposition home or self-care (01) ==
LOC: HO.HPS 09:00
PROVIDERS: PCP Internal Medicine; Visit Provider Internal Medicine Pulmonary Disease
DX: J44.9 Chronic obstructive pulmonary disease, unspecified (principal); Z87.891 Personal history of nicotine dependence; R06.01 Orthopnea
CPT/HCPCS: 99214; G2211

== ENCOUNTER → 2025-02-22 09:00 | Outpatient (BNVA) | payer MEDICARE, MEDICAID, SELFPAY | PROVIDERS: PCP Internal Medicine; Visit Provider Internal Medicine Pulmonary Disease | DX: J44.9 Chronic obstructive pulmonary disease, unspecified (principal); R06.01 Orthopnea; Z87.891 Personal history of nicotine dependence | CPT/HCPCS: 99212 ==

== ENCOUNTER 2025-03-29 15:04 | Inpatient (IN) | payer MEDICARE, MEDICAID, SELFPAY ==
[2025-03-29] VITALS (8 sets, daily range): BP systolic 118–138; BP diastolic 53–86; PULSE 81–101; RESP 18–28; TEMP 36.6–36.9; O2SAT 85–95; BMI 31.8
--- NOTE | ~2025-03-29 | XR_ITS ---
EXAMINATION: XR CHEST 1 VIEW HISTORY: Pneumonia COMPARISON: Comparison is made with the prior examination dated 07/30/2023. FINDINGS: A single AP portable view of the chest performed at 3:43 PM is submitted. There are mild increased markings at the right lung base, similar in appearance to the prior study. No definite new airspace opacity is seen. There is no pleural effusion, pneumothorax, or pulmonary vascular congestion. The heart is normal in size. There is degenerative disc disease of the spine. A fusion plate is seen in the lower cervical spine. XR/XR chest 1V IMPRESSION: No acute cardiopulmonary abnormality. Electronically signed by: Gerson Estrada MD 03/29/2025 03:52 PM EST
--- OUTSIDE RECORDS SUMMARY | 2025-03-29 14:20 | XMS_ITS | Encounter Summary ---
Author Organization [employer] Address [address] [facility] 7t [place] [address] Care Team Providers Care Manager Crisis Name Role Phone Gonzales Brennan MD Primary Care Provider [phone]- [phone] Encounter Details Date Type Department Care Team ([facility] st Contact Info) Description 03/29/2025 2:20 PM EST Office Visit [facility] MED & PEDS [address] [place], [place] [phone] Tamara Wick MD [address] [place], [place] [phone] Respiratory distress (Primary Dx); Pneumonia of both lungs due to infectious organism, unspecified part of lung Social History Tobacco Use Types Packs/Day Years [...] Sign Reading Time Taken Comments Blood Pressure 151/84 03/29/2025 2:37 PM EST Pulse 80 03/29/2025 2:37 PM EST Temperature 36.9 C (98.4 F) 03/29/2025 2:37 PM EST Respiratory Rate 32 03/29/2025 2:37 PM EST Oxygen Saturation 92% 03/29/2025 2:37 PM EST Inhaled Oxygen Concentration - - Weight 92.1 kg (203 lb) 03/29/2025 2:37 PM EST Height - - Body Mass Index 30.42 01/25/2025 9:02 AM EDT documented in this encounter Progress Notes * Tamara Wick MD - 03/29/2025 2:20 PM EST Subjective Patient ID: Sean Hinkle is a 69 y.o. male who presents for No chief complaint on file.. Shortness of Breath This is a new problem. The current episode started yesterday. The problem occurs constantly. The problem has been gradually worsening. Associated symptoms include a fever, headaches and wheezing. Pertinent negatives include no abdominal pain, chest pain, claudication, coryza, ear pain, hemoptysis, leg pain, leg swelling, neck pain, orthopnea, PND, rash, rhinorrhea, sore throat, sputum production,swollen glands, syncope or vomiting. Review of Systems Constitutional: Positive for fever. HENT: Negative for ear pain, rhinorrhea and sore throat. Respiratory: Positive for shortness of breath and wheezing. Negative for hemoptysis and sputum production. Cardiovascular: Negative for chest pain, orthopnea, claudication, leg swelling, syncope and PND. Gastrointestinal: Negative for abdominal pain and vomiting. Musculoskeletal: Negative for neck pain. Skin: Negative for rash. Neurological: Positive for headaches. Objective Physical Exam Constitutional: Appearance: Normal appearance. He is ill-appearing. Cardiovascular: Rate and Rhythm: Normal rate and regular rhythm. Pulmonary: Effort: Respiratory distress present. Breath sounds: Decreased air movement present. Wheezing and rales present. Neurological: General: No focal deficit present. Mental Status: He is alert. Psychiatric: Mood and Affect: Mood normal. Behavior: Behavior normal. Assessment/Plan Diagnoses and all orders for this visit: Respiratory distress - POCT Rapid Covid-19 BinaxNOW - POCT Rapid Influenza A OSOM - POCT Rapid Influenza B OSOM - ipratropium-albuterol (Duo-Neb) 0.5-2.5 mg/3 mL nebulizer solution 3 mg - predniSONE (Deltasone) tablet 60 mg Pneumonia of both lungs due to infectious organism, unspecified part of lung Comments: pt given 60mg of Prednisone and Duoneb in the office O2 sts - 93% Pt refused to use ambulance to go to ER .Pt stated he wants to use his own transportation Orders: - POCT Rapid Covid-19 BinaxNOW - POCT Rapid Influenza A OSOM - POCT Rapid Influenza B OSOM - ipratropium-albuterol (Duo-Neb) 0.5-2.5 mg/3 mL nebulizer solution 3 mg - predniSONE (Deltasone) tablet 60 mg [facility] called and informed of the arrival of the pt in OWN transportation * Heather Mcmillan RN - 03/29/2025 2:20 PM EST TC to patient to triage with physician obstetrician. Patient stated she is having strong upper abdominal pain, across both upper quadrants. She has had this pain before and she had something removed from my pancrease . +nausea only. Denies any bloody BM, but does have constipation. Last BM 2 days ago. Pain increased hen eating. Patient is currently received chemo and radiation treatment for breast cancer. Patient abruptly stated she needed to end call. RN recommended to go to walk-in or ER, and patient stated, I will if I need to. And disconnected the call. Pain - Female (Adult) Protocol-Based Disposition: Go to Office or Video Visit Now Positive Triage Questions: * Fever > 100 F (37.8 C) and has diabetes mellitus or a weak immune system (e.g., HIV positive, cancer chemotherapy, organ transplant, splenectomy, chronic steroids) * Mild pain (e.g., does not interfere with normal activities) and pain comes and goes (cramps) lasts > 48 hours (Exception: This same abdominal pain is a chronic symptom recurrent or ongoing AND present > 4 weeks.) * All higher-acuity triage questions were negative. * Heather Mcmillan RN - 03/29/2025 2:20 PM EST Entered in error documented in this encounter Plan of Treatment Upcoming Encounters Date Type Department Care Team (Late st Contact Info) Description 05/30/2025 9:00 AM EST Clinical Support [facility] MED & PEDS [address] [place] [address] Marisol Thomas RN 505 [place] [address] 07/10/2025 8:00 AM EDT Office Visit [facility] ADULT DENTAL [address] [place] [address] Louis Brennan documented as of this encounter Goals Goal Patient Goal Type Associated Problems Recent Progress Patient-Stated? Author Help patients manage their type 2 diabetes Care Plan Help patients manage their type 2 diabetes Tamara Walters MD Weekly blood pressure task Care Plan Weekly blood pressure task Tamara Walters MD Help patients manage their type 2 diabetes Care Plan Help patients manage their type 2 diabetes Tamara Walters MD Patient has chronic kidney disease Care Plan Patient has chronic kidney disease Tamara Walters MD Weekly blood pressure task Care Plan Weekly blood pressure task Tamara Walters MD Patient has chronic kidney disease Care Plan Patient has chronic kidney disease No Tamara Wick MD Weekly blood pressure task Care Plan Weekly blood pressure task No Candy Klein, RN Weekly blood pressure task Care Plan Weekly blood pressure task No Candy Klein, RN Patient has chronic kidney disease Care Plan Patient has chronic kidney disease No Candy Klein, RN Patient has chronic kidney disease Care Plan Patient has chronic kidney disease No Candy Klein, RN documented as of this encounter Procedures Procedure Name Priority Date/Time Associated Diagnosis Comments POCT RAPID COVID ANTIGEN Routine 03/29/2025 3:05 PM EST Respiratory distress Pneumonia of both lungs due to infectious organism, unspecified part of lung POCT INFLUENZA B Routine 03/29/2025 3:05 PM EST Respiratory distress Pneumonia of both lungs due to infectious organism, unspecified part of lung POCT INFLUENZA A Routine 03/29/2025 3:05 PM EST Respiratory distress Pneumonia of both lungs due to infectious organism, unspecified part of lung documented in this encounter Results * POCT Rapid Influenza B OSOM (03/29/2025 3:05 PM EST) Pathologist [facility] Rapid Influenza B Ag Negative Negative, Indeterminate Swab 03/29/2025 3:05 PM EST us Tamara Wick MD POINT OF CARE TEST ENTER/EDIT OR DERABLES Final Result * POCT Rapid Influenza A OSOM (03/29/2025 3:05 PM EST) [facility] Rapid Influenza A Ag Negative Negative, Indeterminate Swab Nasopharyngeal structure / Unknown 03/29/2025 3:05 PM EST us Tamara Wick MD POINT OF CARE TEST ENTER/EDIT OR DERABLES Final Result * POCT Rapid Covid-19 BinaxNOW (03/29/2025 3:05 PM EST) [facility] Rapid COVID Ag Negative Swab 03/29/2025 3:05 PM EST Tamara Wick MD POINT OF CARE TEST ENTER/EDIT OR DERABLES Final Result documented in this encounter Visit Diagnoses Diagnosis Respiratory distress- Primary Other dyspnea and respiratory abnormality Pneumonia of both lungs due to infectious organism, unspecified part of lung documented in this encounter Administered Medications Inactive Administered Medications - up to 3 most recent administrations Medication Order MAR Action Action Date Dose Rate Site ipratropium-albuterol (Duo-Neb) 0.5-2.5 mg/3 mL nebulizer solution 3 mg 3 mg, Nebulization, Once, On Thu03/29/25 at 1445, For 1 doseIndications:Respiratory distress,Pneumonia of both lungs due to infectious organism, unspecified part of lung Given 03/29/2025 2:45 PM EST 3 mg predniSONE (Deltasone) tablet 60 mg 60 mg, Oral, Once, On Thu03/29/25 at 1445, For 1 doseIndications:Respiratory distress,Pneumonia of both lungs due to infectious organism, unspecified part of lung Given 03/29/2025 2:45 PM EST 60 mg documented in this encounter Additional Health Concerns Active Problems Noted Date Diagnosed Date Help patients manage their type 2 diabetes 03/29 Weekly blood pressure task 03/29/2025 Help patients manage their type 2 diabetes 03/29 Patient has chronic kidney disease 03/29/2025 Weekly blood pressure task 03/29/2025 Patient has chronic kidney disease 03/29/2025 Weekly blood pressure task 03/29/2025 Weekly blood pressure task 03/29/2025 Patient has chronic kidney disease 03/29/2025 Patient has chronic kidney disease 03/29/2025 Assessment Noted Time PHQ-9 Depression Total Score: 0 07/11/19 23 3:46 PM EDT documented as of this encounter Care Teams Manager Crisis Relationship Specialty Start Date End Date Gonzales Brennan MD [address] [place] [address] PCP - General Internal Medicine 04/27/18 documented as of this encounter
--- NOTE | 2025-03-29 15:15 | ECG_ITS ---
Test Reason : SOB Blood Pressure : */* mmHG Vent. Rate : 99 BPM Atrial Rate : 99 BPM P-R Int : 166 ms QRS Dur : 88 ms QT Int : 392 ms P-R-T Axes : 71 -28 15 degrees QTcB Int : 503 ms Artifact in tracing Normal sinus rhythm Inferior infarct , age undetermined Abnormal ECG When compared with ECG of 30-Jul-2023 16:31, Nonspecific T wave abnormality now evident in Inferior leads QT has lengthened Referred By: Darryn Hernandez Electronically Signed By: BG SMILEY
--- NOTE | 2025-03-29 15:20 | ED.GENADULT ---
HPI - General Adult General Chief complaint: Dyspnea Stated complaint: diff breathing sent in by pcp Time Seen by Provider: 03/29/25 15:54 Source: patient Mode of arrival: ambulatory Limitations: no limitations History of Present Illness ED Provider: DR. Diaz HPI narrative: a 69-year-old male history of COPD not in any supplemental oxygen, type 2 DM, hyperthyroidism, HLD, CAD, BPH came in today for 1 week of cough with clear sputum and difficulty breathing, patient also is complaining of bilateral lower extremity swelling and edema, require 3 pillows to sleep at night otherwise +PND. Patient walked in today for evaluation of the shortness of breath and cough patient was 85% O2 on room air. No fever, no chills, no exposure to a sick contacts. Related Data Home Medications ?Medication ?Instructions ?Recorded ?Confirmed aspirin 81 mg tablet,delayed 81 mg PO BEDTIME 03/15/20 03/29/25 release atorvastatin 40 mg tablet 40 mg PO BEDTIME 03/15/20 03/29/25 fluoxetine 40 mg capsule 40 mg PO DAILY 03/15/20 03/29/25 hydroxyzine HCl 50 mg tablet 50 mg PO BEDTIME 03/15/20 03/29/25 methimazole 5 mg tablet 5 mg PO DAILY 03/15/20 03/29/25 tamsulosin 0.4 mg capsule 0.4 mg PO BEDTIME 03/15/20 03/29/25 gabapentin 600 mg tablet 600 mg PO TID 06/05/20 03/29/25 metformin 1,000 mg tablet 1,000 mg PO BID 12/13/20 03/29/25 nitroglycerin 0.4 mg sublingual 0.4 mg sublingual Q5M PRN angina 12/13/20 03/29/25 tablet glipizide 5 mg tablet, extended 5 mg PO DAILY 07/10/22 03/29/25 release 24 hr nicotine (polacrilex) 4 mg gum 4 mg buccal Q2H PRN Nicotine 07/30/23 03/29/25 Cravings simethicone 125 mg capsule (Gas 125 mg PO QID PRN abdominal 07/30/23 03/29/25 Relief (simethicone)) distention esomeprazole magnesium 40 mg 40 mg PO DAILY@0630 03/29/25 03/29/25 capsule,delayed release furosemide 40 mg tablet 40 mg PO DAILY 03/29/25 03/29/25 isosorbide mononitrate 30 mg 30 mg PO DAILY 03/29/25 03/29/25 tablet,extended release 24 hr lisinopril 10 mg tablet 10 mg PO DAILY 03/29/25 03/29/25 Previous Rx's ?Medication ?Instructions ?Recorded albuterol sulfate 2.5 mg/3 mL 2.5 mg (3 mL) inhalation Q6H PRN 10/19/24 (0.083 %) solution for nebulization shortness of breath or wheezing 30 days #180 mL ensifentrine 3 mg/2.5 mL 3 mg (2.5 mL) inhalation BID #150 10/29/24 suspension for nebulization mL (Ohtuvayre) cholecalciferol (vitamin D3) 50 50 mcg PO DAILY #90 caps 11/04/24 mcg (2,000 unit) capsule famotidine 40 mg tablet 40 mg PO BEDTIME #30 tabs 11/14/24 bisacodyl 5 mg tablet,delayed 10 mg (2 x 5 mg) PO BEDTIME #180 11/24/24 release (Dulcolax (bisacodyl)) tabs fluticasone fur. 200 mcg-umeclid 1 ea inhalation DAILY #60 ea 01/16/25 62.5 mcg-vilant 25 mcg inhalat.powder (Trelegy Ellipta) theophylline 450 mg 450 mg PO DAILY #30 tabs 01/16/25 tablet,extended release,12 hr albuterol sulfate 90 mcg/actuation 2 puff inhalation Q4-6H PRN 02/22/25 aerosol inhaler shortness of breath or wheezing 30 days #1 ea azithromycin 500 mg tablet 500 mg PO DAILY 5 days #5 tabs 03/31/25 prednisone 20 mg tablet 40 mg (2 x 20 mg) PO DAILY #10 tabs 03/31/25 Allergies Allergy/AdvReac Type Severity Reaction Status Date / Time Penicillins (PENICILLINS) Allergy Severe THROAT Verified 03/29/25 15:17 SWELLING penicillin V Allergy Unknown anaphylaxis Verified 03/29/25 15:17 Review of Systems Review of Systems: All other systems are reviewed and are negative Constitutional: Reports as per HPI and Reports no additional constitutional complaints Eyes: Reports as per HPI and Reports no additional eye complaints Reports system reviewed and no additional complaints, except as documented Cardiovascular: Reports as per HPI and Reports no additional cardiovascular complaints Respiratory: Reports as per HPI and Reports no additional respiratory complaints Gastrointestinal: Reports as per HPI and Reports no additional gastrointestinal complaints Genitourinary: Reports no additional female genitourinary complaints Musculoskeletal: Reports no additional musculoskeletal complaints Skin/Breast: Reports system reviewed and no additional complaints, except as docu Psychiatric: Reports no additional psychiatric complaints Endocrine: Reports no additional endocrine complaints Hematologic/Lymphatic: Reports no additional hematologic/lymphatic complaints Allergic/Immunologic: Reports no additional allergic/immunologic complaints Reports system reviewed and no additional complaints, except as documented and Reports Abnormal speech present [facility] Past Medical History Medical History CAD (coronary artery disease) Dysphagia Tubular adenoma Tubular adenoma IBS (irritable bowel syndrome) Personal history of nicotine dependence Diabetes mellitus type 2, controlled Tubular adenoma of colon (~2019) GERD (gastroesophageal reflux disease) H/O benign carcinoid tumor Cough Back pain Anxiety and depression Lung nodule BPH (benign prostatic hyperplasia) Hyperthyroidism Left adrenal mass HLD (hyperlipidemia) Chest pain Obesity HTN (hypertension) COPD (chronic obstructive pulmonary disease) Surgical History History of total adrenalectomy History of colonoscopy History of lithotripsy (~2014) History of bilateral inguinal hernia repair (~2014) History of esophagogastroduodenoscopy (EGD) History of prostate surgery (~2017) History of cholecystectomy (~2019) History of cardiac cath (~2010) Family History Family History Father Cancer Mother Lung cancer Brother Heart attack Social History Social History Household Members: Spouse Household Members Other:: Pt anxious and unable to respond at this time Housing: Apartment Do you presently have visiting nurse or other home services: Yes Alcohol intake: never Comment: Patient refusing all alarms Patient Tobacco Use Status: Tobacco use Unknown Tobacco use type: Cigarette Cigarette Packs Per Day: 0.5 Cigarettes Per Day: 6 Years Smoked: 50 Smoked in Last 30 Days: Yes Patient Interested in Nicotine Replacement: Yes Patient Given Instructions on How to Stop Smoking: Yes Date Education Initiated: 03/29/25 Use of substances other than those prescribed or required for medical reasons: No Substance Use Type: Marijuana Currently Displaying Signs/Symptoms of Drug Intoxication Withdrawal: No Have you been hit, kicked, punched, or otherwise hurt by someone within the past year? If so, by whom?: No Do you feel safe in your current relationship?: Yes Is there a partner from a previous relationship who is making you feel unsafe now?: No Are you made to feel afraid or neglected: No [employer] Healthcare Practices: methodist Advance Directives: Yes Advance Directives on File: Yes Advance Directives Date on File: 02/09/20 Do you have a plan to hurt others: No Plan Nutrition Risks: No Nutritional Risk service: No Physical Exam ED Vital Signs: Vital Signs - 24 hr 03/29/25 15:16 03/29/25 15:40 03/29/25 15:45 Temperature 98.0 F Pulse Rate 85 81 Respiratory Rate 28 H 22 H Blood Pressure 138/74 Pulse Oximetry 89 L 85 L Oxygen Delivery Method Room Air Room Air Oxygen Flow Rate 03/29/25 15:48 03/29/25 16:21 03/29/25 16:34 Temperature Pulse Rate 81 98 Respiratory Rate 20 20 Blood Pressure 118/86 120/59 L Pulse Oximetry 91 L Oxygen Delivery Method Nasal Cannula Oxygen Flow Rate 2 BMI result Body Mass Index 31.8 Vital signs have been reviewed and appear to be correct. Blood pressure elevated. Heart rate normal. Respiratory rate normal. Temperature normal. Oxygen saturation normal. Appearance: Alert. Oriented X3. No acute distress. Head: Normal external exam. Normocephalic. Atraumatic. No Toney signs noted. No raccoon eyes noted Eyes: PERRLA. EOMI. Conjunctiva and sclera normal. Eyelids normal. ENT: TM's Normal. Pharynx normal. Uvula midline. Moist mucous membranes. No trismus noted. No drooling noted. No muffled voice noted. Neck: Normal inspection. Neck supple. FROM. No adenopathy. Thyroid Normal. No meningeal signs. No neck mass noted. CVS: Normal heart rate and rhythm. Heart sound normal. No murmurs noted. Pulses normal throughout. Respiratory: No respiratory distress. Painless inspiration. Breath sounds normal. Diffuse expiratory mild wheezing with prolonged expiration, rales bilateral pulmonary basis. No accessory muscle usage noted or decreased air movement noted. Abdomen: Soft and nontender. Bowel sounds normal in all 4 quadrants. No distention noted. No organomegaly noted. No visible injury noted. Back: No CVA tenderness. Full range of motion noted. Skin: Skin warm and dry. Normal skin color. Normal skin turgor. No rashes/lesions/lacerations noted. Extremities: No lower extremity edema. Extremities exhibit normal range of motion. Extremities nontender. Neuro: Oriented X 3. Cranial nerve exam: II-XII are grossly intact No motor deficit. No sensory deficit. Reflexes normal. Course Course Course Narrative: RME: 69 year male history of COPD presents to ED for shortness of breath, coughing, sore throat body aches. Patient is sent from urgent care to rule out pneumonia. Patient is hypoxic 89%. Charge nurse made aware. Patient to be brought back to the ED. Patient is placed on oxygen Reevaluation(s) Reevaluation #1: Patient received bronchodilator, Solu-Medrol, and magnesium for COPD exacerbation with significant improvement. also patient received Lasix for diuresis and possible CHF. Patient is feeling better after the medication. Time: 17:36 Medications Administered Generic Name Dose Route Start Last Admin Trade Name Freq PRN Reason Stop Dose Admin Aspirin 81 mg 03/29/25 21:15 03/30/25 20:46 Aspirin Enteric Coated 81 Mg Tablet. PO 81 mg BEDTIME SHAHRZAD Administration Atorvastatin Calcium 40 mg 03/29/25 21:15 03/30/25 20:46 Atorvastatin Calcium 40 Mg Tablet PO 40 mg BEDTIME SHAHRZAD Administration Azithromycin 500 mg 03/30/25 09:00 03/31/25 08:36 Azithromycin 500 Mg Tablet PO 500 mg Q24H SHAHRZAD Administration Enoxaparin Sodium 40 mg 03/30/25 09:30 03/31/25 08:37 Enoxaparin Sodium 40 Mg/0.4 Ml Syringe SUBCUT 40 mg Q24H SHAHRZAD Administration Famotidine 40 mg 03/29/25 21:15 03/30/25 20:46 Famotidine 20 Mg Tablet PO 40 mg BEDTIME SHAHRZAD Administration Fluoxetine HCl 40 mg 03/30/25 09:00 03/31/25 08:36 Fluoxetine Hcl 20 Mg Capsule PO 40 mg DAILY SHAHRZAD Administration Fluticasone/Umeclidinium/Vilanterol 1 puff 03/30/25 08:00 03/31/25 07:52 Fluticasone/Umeclidinium/Vilanterol 200/62.09/18 Blst.W.Dev INHALE 1 puff RDAILY SHAHRZAD Administration Furosemide 40 mg 03/31/25 09:00 03/31/25 08:37 Furosemide 40 Mg Tablet PO 40 mg DAILY SHAHRZAD Administration Protocol Gabapentin 600 mg 03/29/25 21:15 03/31/25 08:36 Gabapentin 600 Mg Tablet PO 600 mg TID SHAHRZAD Administration Hydroxyzine HCl 50 mg 03/29/25 21:15 03/30/25 20:46 Hydroxyzine Hcl 50 Mg Tablet PO 50 mg BEDTIME SHAHRZAD Administration Insulin Human Lispro 0 unit 03/29/25 21:00 03/31/25 11:52 Insulin Lispro 100 Unit/Ml 3 Ml Vial SUBCUT 2 unit QIDACHS [facility] Administration Protocol Isosorbide Mononitrate 30 mg 03/30/25 09:00 03/31/25 08:36 Isosorbide Mononitrate 30 Mg Tab.Er.24h PO 30 mg DAILY SHAHRZAD Administration Protocol Lisinopril 10 mg 03/30/25 09:00 03/31/25 08:37 Lisinopril 10 Mg Tablet PO 10 mg DAILY SHAHRZAD Administration Protocol Methimazole 5 mg 03/30/25 09:00 03/31/25 08:37 Methimazole 5 Mg Tablet PO 5 mg DAILY SHAHRZAD Administration Methylprednisolone Sodium Succinate 40 mg 03/30/25 04:00 03/31/25 03:58 Methylprednisolone Sod Succ 40 Mg/Ml Vial IVPUSH 40 mg Q12H SHAHRZAD Administration Nicotine 14 mg 03/30/25 11:45 03/31/25 08:37 Nicotine 14 Mg Patch.Td24 TRANSDERMA 14 mg DAILY SHAHRZAD Administration Omeprazole 20 mg 03/30/25 06:30 03/31/25 05:51 Omeprazole 20 Mg Capsule.Dr PO 20 mg DAILY@0630 SHAHRZAD Administration Sodium Chloride 3 ml 03/30/25 00:00 03/31/25 08:38 0.9 % Sodium Chloride Flush 3 Ml Syringe IVFLUSH 3 ml QSHIFT SHAHRZAD Administration Tamsulosin HCl 0.4 mg 03/29/25 21:15 03/30/25 20:46 Tamsulosin Hcl 0.4 Mg Capsule PO 0.4 mg BEDTIME SHAHRZAD Administration Theophylline 450 mg 03/30/25 09:00 03/31/25 08:36 Theophylline Anhydrous Er 300 Mg Tab.Er.12h PO 450 mg DAILY SHAHRZAD Administration Vitamin D 50 mcg 03/30/25 09:00 03/31/25 08:36 Cholecalciferol (Vitamin D3) 25 Mcg Tablet PO 50 mcg DAILY SHAHRZAD Administration Discontinued Medications Generic Name Dose Route Start Last Admin Trade Name Chon PRN Reason Stop Dose Admin Albuterol Sulfate 5 mg/ 0 mg 03/29/25 15:39 03/29/25 15:43 Albuterol/Ipratropium 3 ml INHALE 03/29/25 15:40 1 each ONCE ONE Administration Albuterol Sulfate 5 mg/ 0 mg 03/29/25 16:28 03/29/25 16:32 Albuterol/Ipratropium 3 ml INHALE 03/29/25 16:29 1 each ONCE ONE Administration Furosemide 40 mg 03/29/25 16:03 03/29/25 16:21 Furosemide 40 Mg/4 Ml Vial IVPUSH 03/29/25 16:04 40 mg ONCE ONE Administration Protocol Furosemide 40 mg 03/30/25 09:00 03/30/25 09:10 Furosemide 40 Mg/4 Ml Vial IVPUSH 40 mg BID@0900,1800 [facility] Administration Protocol Magnesium Sulfate 2 gm in 50 mls @ 150 mls/hr 03/29/25 15:15 03/29/25 16:26 Magnesium Sulfate/H2o IV 03/29/25 15:34 Infused ONCE ONE Infusion Doxycycline Hyclate 100 mg/ 250 mls @ 166.67 mls/hr 03/29/25 16:03 03/29/25 18:00 Sodium Chloride IV 03/29/25 17:32 Infused ONCE ONE Infusion Methylprednisolone Sodium Succinate 60 mg 03/29/25 15:15 03/29/25 15:43 Methylprednisolone Sod Succ 125 Mg/2 Ml Vial IVPUSH 03/29/25 15:16 60 mg ONCE ONE Administration Medical Decision Making Differential Diagnosis Differential Diagnoses: The differential diagnosis associated with the presentation includes ( COPD exacerbation, pneumonia, pneumothorax, pleural effusion, CHF, electrolyte derangement, severe anemia.) Admission/Observation Consideration of admission/observation: Escalation of care including admission/observation considered Lab Data MDM Lab Attestation statement: I reviewed the patient's lab results. 03/31/25 06:13 03/31/25 06:13 Labs: Lab Results 12/03/25 Range/Units 15:42 WBC 10.3 (4.8-10.8) X10*3/uL RBC 4.92 (4.60-5.80) X10*6/uL Hgb 14.7 (14.0-18.0) g/dl Hct 43.2 (42.0-52.0) % MCV 87.8 (80.0-98.0) fL MCH 29.9 (27.0-33.0) pg MCHC 34.0 (31.0-36.0) g/dl RDW 12.8 (11.0-16.0) % Plt Count 187 (160-400) X10*3/uL MPV 9.2 L (9.4-12.4) fL Immature Gran % (Auto) 0.4 (0.0-0.4) % Neut % (Auto) 72.1 (45-73) % Lymph % (Auto) 18.9 L (20-40) % Moody % (Auto) 7.3 (2-11) % Eos % (Auto) 0.9 (0-4) % Baso % (Auto) 0.4 (0-2) % Lymph # (Auto) 1.9 (1.2-4.9) X10*3/uL Moody # (Auto) 0.8 (0.1-1.2) X10*3/uL Eos # (Auto) 0.1 (0.0-0.4) X10*3/uL Baso # (Auto) 0.0 (0.0-0.2) X10*3/uL Abs Immat Gran (auto) 0.04 H (0.00-0.03) X10*3/uL Absolute Neuts (auto) 7.4 (2.0-8.3) x10*3/uL Absolute Nucleated RBC 0.000 (0.0-0.012) X10*3/uL Nucleated RBC % (auto) 0.0 (0.0-0.2) /100WBC Sodium 141 (135-145) mmol/L Potassium 4.4 (3.3-5.1) mmol/L Chloride 107 (96-108) mmol/L Carbon Dioxide 25 (22-29) mmol/L Anion Gap 13 (12-20) BUN 18 H (9-16) mg/dL Creatinine 1.01 (0.5-1.4) mg/dL Estim Creat Clear Calc 73.6 Estimated GFR > 60 Random Glucose 123 H (60-115) mg/dL Lactic Acid 1.8 (0.5-2.0) mmol/L Calcium 9.8 D (8.4-10.2) mg/dL Total Bilirubin 0.2 (0.0-1.0) mg/dL AST 29 (5-37) U/L ALT 34 (0-40) U/L Alkaline Phosphatase 93 (39-117) U/L Troponin I High Sens 4.8 D (<3.5-35.0) ng/L NT-Pro-B Natriuret Pep 484.8 H (<300) pg/mL Total Protein 7.7 (6.5-8.0) g/dL Albumin 4.0 (3.5-5.0) g/dL Influenza Type A (PCR) NEGATIVE (Negative) Influenza Type B (PCR) NEGATIVE (Negative) RSV RNA Qual (PCR) NEGATIVE (Negative) SARS-CoV-2 RNA (RT-PCR) NEGATIVE (Negative) S. pyogenes GrpA CORTNEY Negative (Negative) Independent Interpretation I performed an independent interpretation of an: Plain X-Ray ( Chest : no acute cardiopulmonary abnormality.) Radiology Impression Discussion of test interpretation with radiology: I have reviewed the radiologist's reading. Critical Care Time Critical Care Time Critical Care Time: Yes Total Critical Care Time: 60 Attestation: The patient was critically ill with a high probability of imminent or life-threatening deterioration. I spent greater than 30 minutes of discontinuous time evaluating the patient, delivering critical care at the bedside, discussing evaluating data with consultants. Critical care time does not include time spent performing separately billable procedures or teaching. Time spent performing critical care was 60 minutes. Discharge Plan Discharge Clinical Impression: COPD exacerbation, CHF exacerbation Patient Disposition: Admitted As Inpatient Interventions: Admission Worksheet (ED) Last Done: 03/30/25 13:43 Discharge Date/Time: 03/30/25 14:26
[2025-03-29] MEDS: Albuterol Sulfate 5 MG, Albuterol/Iprat 2.5/0.5MG 3 ML 3 ML INHALE ×2 (15:43→16:32)
[2025-03-29] MEDS: Magnesium Sulfate/H2O 2 GM/50 ML PIGGYBACK IV (15:43)
[2025-03-29 15:50] LABS: MANUAL DIFF FLAG NO
[2025-03-29 15:51] LABS: Hematocrit 43.2 % (42.0-52.0); Hemoglobin 14.7 g/dl (14.0-18.0); Imm Gran Abs Auto 0.04 X10*3/uL (0.00-0.03); Imm Gran Pct Auto 0.4 % (0.0-0.4); Lymphocytes Absolute Auto 1.9 X10*3/uL (1.2-4.9); Mean Corpuscular HGB Conc 34.0 g/dl (31.0-36.0); Mean Corpuscular Hemoglobin 29.9 pg (27.0-33.0); Mean Corpuscular Volume 87.8 fL (80.0-98.0); NRBC Abs Auto 0.000 X10*3/uL (0.0-0.012); NRBC Pct Auto 0.0 /100WBC (0.0-0.2); Platelet Count 187 X10*3/uL (160-400); Red Blood Count 4.92 X10*6/uL (4.60-5.80); White Blood Count 10.3 X10*3/uL (4.8-10.8)
[2025-03-29 15:57] LABS: IDNOW Serial# 58CA691E; Strep A Nucleic Acid Negative (Negative)
[2025-03-29 16:05] LABS: Alanine Aminotransferase 34 U/L (0-40); Albumin Level 4.0 g/dL (3.5-5.0); Alkaline Phosphatase 93 U/L (39-117); Anion Gap 13 (12-20); Aspartate Amino Transferase 29 U/L (5-37); Blood Urea Nitrogen 18 mg/dL (9-16); Calcium 9.8 mg/dL (8.4-10.2); Carbon Dioxide 25 mmol/L (22-29); Chloride 107 mmol/L (96-108); Creatinine Clr Calc Pharmacy 73.6; Estimated Glomerular Filt Rate > 60; Potassium 4.4 mmol/L (3.3-5.1); Sodium 141 mmol/L (135-145); Total Protein 7.7 g/dL (6.5-8.0)
[2025-03-29 16:13] LABS: Troponin-I High Sensitivity 4.8 ng/L (<3.5-35.0)
[2025-03-29] MEDS: Furosemide 40 MG/4 ML VIAL IVPUSH (16:21)
[2025-03-29 16:29] LABS: Resp Syncy Virus RNA Qual PCR NEGATIVE (Negative); SARS COV2 PCR INHOUSE NEGATIVE (Negative)
--- NOTE | 2025-03-29 17:27 | PC.NURSE ---
Pt presents to ED via home for SOB, cough and general malaise X8 days worsening. Pt has hx of COPD, no O2 use at baseline. Found to be hypoxic here, 85% on RA at lowest. Alert and oriented, breathing labored on arrival, cough productive with yellow/ orange sputum per pt. Chest tightness and pain with frequent coughing. Pt on 2L O2 NC at this time. IV 20G in right forearm. Uses urinal at bedside.
--- NOTE | 2025-03-29 17:42 | PM.IMHP ---
History of Present Illness Date of Service: 03/29/25 Chief Complaint: sob 69M PMH COPD, diabetes, nonobstructive CAD, BPH, hyperlipidemia, active smoker, hyperthyroid presented with shortness of breath. Patient states he has been feeling unwell for about 1 week. Reports cough with productive yellow sputum, subjective fevers, sick contacts his daughter had similar symptoms. Also reporting worsening shortness of breath on exertion and lying down requiring multiple pillows to sleep and waking up in the middle night with short of breath and diaphoretic. As he was not getting any better he came to the ED. In ED noted to be 85% on room air, chest x-ray unremarkable. In ED started to have left-sided sharp chest pain nonradiating lasted about 2 hours. Troponin negative, EKG nonischemic. Review of Systems Review of Systems: Yes all other systems are reviewed and are negative [facility] Medical History CAD (coronary artery disease) Dysphagia Tubular adenoma Tubular adenoma IBS (irritable bowel syndrome) Personal history of nicotine dependence Diabetes mellitus type 2, controlled Tubular adenoma of colon (~2019) GERD (gastroesophageal reflux disease) H/O benign carcinoid tumor Cough Back pain Anxiety and depression Lung nodule BPH (benign prostatic hyperplasia) Hyperthyroidism Left adrenal mass HLD (hyperlipidemia) Chest pain Obesity HTN (hypertension) COPD (chronic obstructive pulmonary disease) Family History Father Cancer Mother Lung cancer Brother Heart attack Surgical History History of total adrenalectomy History of colonoscopy History of lithotripsy (~2014) History of bilateral inguinal hernia repair (~2014) History of esophagogastroduodenoscopy (EGD) History of prostate surgery (~2017) History of cholecystectomy (~2019) History of cardiac cath (~2010) Social History Household Members Other:: Pt anxious and unable to respond at this time Do you presently have visiting nurse or other home services: Yes ([place]) Alcohol intake: never Comment: Patient refusing all alarms Patient Tobacco Use Status: Former Tobacco user Tobacco use type: Cigarette Cigarette Packs Per Day: 0.5 Cigarettes Per Day: 10.0 Years Smoked: 50 Smoked in Last 30 Days: Yes Use of substances other than those prescribed or required for medical reasons: No Substance Use Type: Marijuana Advance Directives: Yes Advance Directives on File: Yes Advance Directives Date on File: 02/09/20 Do you have a plan to hurt others: No Plan service: No Meds Allergies Allergy/AdvReac Type Severity Reaction Status Date / Time Penicillins (PENICILLINS) Allergy Severe THROAT Verified 03/29/25 15:17 SWELLING penicillin V Allergy Unknown anaphylaxis Verified 03/29/25 15:17 Active Medications: Current Medications Acetaminophen (Acetaminophen 325 Mg Tablet) 650 mg PO Q6H PRN PRN Reason: Pain, Mild 1-3,fever,headache Albuterol/Ipratropium (Albuterol/Iprat 2.5/0.5mg 3 Ml Ampul.Neb) 3 ml INHALE RQ4H WHILE AWAKE PRN PRN Reason: sob Azithromycin (Azithromycin 500 Mg Tablet) 500 mg PO Q24H SHAHRZAD Calcium Carbonate (Calcium Carbonate 750 Mg Tab.Chew) 750 mg PO Q4H PRN PRN Reason: Heartburn Enoxaparin Sodium (Enoxaparin Sodium 40 Mg/0.4 Ml Syringe) 40 mg SUBCUT Q24H SHAHRZAD Furosemide (Furosemide 40 Mg/4 Ml Vial) 40 mg IVPUSH BID@0900,1800 [facility]; Protocol Magnesium Hydroxide (Milk Of Magnesia 30 Ml Oral.Susp) 30 ml PO DAILY PRN PRN Reason: Constipation Melatonin (Melatonin 3 Mg Tablet) 6 mg PO BEDTIME PRN PRN Reason: Insomnia Methylprednisolone Sodium Succinate (Methylprednisolone Sod Succ 40 Mg/Ml Vial) 40 mg IVPUSH Q12H SHAHRZAD Sodium Chloride (0.9 % Sodium Chloride Flush 3 Ml Syringe) 3 ml IVFLUSH QSHIFT [facility] Home Medications ?Medication ?Instructions ?Recorded ?Confirmed ?Last Taken ?Type aspirin 81 mg tablet,delayed 81 mg PO BEDTIME 03/15/20 06/21/24 07/29/23 History release atorvastatin 40 mg tablet 40 mg PO BEDTIME 03/15/20 06/21/24 07/29/23 History fluoxetine 40 mg capsule 40 mg PO DAILY 03/15/20 06/21/24 07/30/23 History hydroxyzine HCl 50 mg tablet 50 mg PO BEDTIME 03/15/20 06/21/24 07/29/23 History isosorbide mononitrate 60 mg 60 mg PO QAM 03/15/20 06/21/24 07/30/23 History tablet,extended release 24 hr lisinopril 10 1 tab PO QAM 03/15/20 06/21/24 07/30/23 History mg-hydrochlorothiazide 12.5 mg tablet methimazole 5 mg tablet 5 mg PO QAM 03/15/20 06/21/24 07/30/23 History tamsulosin 0.4 mg capsule 0.4 mg PO BEDTIME 03/15/20 06/21/24 07/29/23 History gabapentin 600 mg tablet 600 mg PO TID 06/05/20 06/21/24 07/30/23 History metformin 1,000 mg tablet 1,000 mg PO BID 12/13/20 06/21/24 07/30/23 History nitroglycerin 0.4 mg sublingual 0.4 mg sublingual Q5M PRN angina 12/13/20 06/21/24 Unknown History tablet glipizide 5 mg tablet, extended 5 mg PO DAILY 07/10/22 06/21/24 07/30/23 History release 24 hr cholestyramine-aspartame 4 gram 4 g PO DAILY 07/30/23 06/21/24 07/30/23 History oral powder for susp in a packet (Cholestyramine Light) nicotine (polacrilex) 4 mg gum 4 mg buccal Q2H PRN Nicotine 07/30/23 06/21/24 Unknown History Cravings simethicone 125 mg capsule (Gas 125 mg PO QID PRN abdominal 07/30/23 06/21/24 Unknown History Relief (simethicone)) distention naloxone 4 mg/actuation nasal spray intranasal 10/12/23 06/21/24 Unknown History Physical Exam Vital Signs and Narrative: Vital Signs: Last Vital Signs Temp 98.0 F 03/29/25 15:16 Pulse 98 03/29/25 16:34 Resp 20 03/29/25 16:34 BP 120/59 L 03/29/25 16:21 Pulse Ox 91 L 03/29/25 15:48 O2 Del Method Nasal Cannula 03/29/25 15:48 O2 Flow Rate 2 03/29/25 15:48 BMI result Body Mass Index 31.8 General: AO X 3, dyspneic Resp: Poor air entry, wheezing bilateral, accessory muscles used CVS: S1,S2,RRR GI: soft, non tender, non distended Neuro: motor grossly intact, alert Psych: appropriate affect, appropriate insight Results Labs 03/29/25 15:42 03/29/25 15:42 Labs: Laboratory Results - last 24 hr 03/29/25 15:42 MCV 87.8 MCH 29.9 MCHC 34.0 RDW 12.8 Plt Count 187 MPV 9.2 L Immature Gran % (Auto) 0.4 Neut % (Auto) 72.1 Lymph % (Auto) 18.9 L Appling % (Auto) 7.3 Eos % (Auto) 0.9 Baso % (Auto) 0.4 Lymph # (Auto) 1.9 Appling # (Auto) 0.8 Eos # (Auto) 0.1 Baso # (Auto) 0.0 Abs Immat Gran (auto) 0.04 H Absolute Neuts (auto) 7.4 Absolute Nucleated RBC 0.000 Nucleated RBC % (auto) 0.0 Anion Gap 13 Estim Creat Clear Calc 73.6 Estimated GFR > 60 Random Glucose 123 H Lactic Acid 1.8 Calcium 9.8 D Total Bilirubin 0.2 AST 29 ALT 34 Alkaline Phosphatase 93 Troponin I High Sens 4.8 D Total Protein 7.7 Albumin 4.0 Influenza Type A (PCR) NEGATIVE Influenza Type B (PCR) NEGATIVE RSV RNA Qual (PCR) NEGATIVE SARS-CoV-2 RNA (RT-PCR) NEGATIVE S. pyogenes GrpA CORTNEY Negative Imaging Radiologist's Impressions: Impressions Chest X-Ray 03/29/25 15:43 IMPRESSION: No acute cardiopulmonary abnormality. Electronically signed by: Gerson Estrada MD 03/29/2025 03:52 PM EST Assessment and Plan (1) CHF exacerbation: Status: Acute Plan 69M PMH COPD, diabetes, nonobstructive CAD, BPH, hyperlipidemia, active smoker, hyperthyroid presented with shortness of breath Acute hypoxic respiratory failure due to COPD with acute decompensation IV steroids, DuoNebs, azithromycin, wean O2 as tolerated, smoking cessation Acute on chronic diastolic CHF IV Lasix Check echo Chest pain with history of nonobstructive CAD on CTA Follow up troponin, check echo Diabetes Insulin sliding scale DVT prophylaxis with Lovenox Full code Given degraded shortness breath and hypoxia requiring oxygen supplementation IV steroids and close monitoring as well as IV diuresis and further investigation with echocardiogram expected require at least 2 midnights inpatient Quality Stroke Does the patient have a stroke diagnosis?: No VTE Prior VTE?: No VTE Risk Level:: Medical - moderate - high VTE Device Contraindication: Treatment Not Indicated VTE Drug Contraindication: N/A - Med Ordered
[2025-03-29 17:55] LABS: NT Pro B Type Natriuretic Pept 484.8 pg/mL (<300)
--- OUTSIDE RECORDS SUMMARY | 2025-03-29 18:42 | XMS_ITS | Encounter Summary ---
Author Organization [employer] Address [address] [facility] 7 [place] [address] Care Team Providers Care Obgyn Specialist Name Role Phone Gonzales Brennan MD Primary Care Provider [phone] Reason for Visit * Reason Onset Date Comments Med Refill 11/29/2024 Medication Question 11/29/2024 Encounter Details Date Type Department Care Team ([facility] st Contact Info) Description 11/29/2024 Telephone [facility] CHC MED & PEDS [address] [place] [address] Gonzales Brennan MD [address] [place] [address] Med Refill; Medication Question Social History Tobacco [...] immediate release tablet To be sent to: [facility] [place] - [address] Pt stated he picked up script today but got home and it is not in bag. Pt stated he searched his car but medication is nowhere to be found. Contact pt at [phone] documented in this encounter Plan of Treatment Upcoming Encounters Date Type Department Care Team ([facility] st Contact Info) Description 05/30/2025 9:00 AM EST Clinical Support [facility] MED & PEDS [address] [place] [address] Marisol Thomas, LEVI [address] [place] [address] 07/10/2025 8:00 AM EDT Office Visit [facility] ADULT DENTAL [address] [place] [address] Louis Brennan documented as of this encounter Visit Diagnoses Not on filedocumented in this encounter Additional Health Concerns Assessment Noted Time PHQ-9 Depression Total Score: 0 07/11/19 23 3:46 PM EDT documented as of this encounter Care Teams Obgyn Specialist Relationship Specialty Start Date End Date Gonzales Brennan MD [address] [place] [address] PCP - General Internal Medicine 04/27/18 documented as of this encounter
--- OUTSIDE RECORDS SUMMARY | 2025-03-29 18:42 | XMS_ITS | Encounter Summary ---
Author Organization [employer] Address [address] [facility] 7t [place] [address] Care Team Providers Care Comber Fixer Name Role Phone Gonzales Brennan MD Primary Care Provider [phone] Encounter Details Date Type Department Care Team (Late st Contact Info) Description 12/02/[address] [facility] MEDICINE [address] [place] [address] Gonzales Brennan MD [address] [place] [address] Social History Tobacco Use Types Packs/Day Years [...] 05/30/2025 9:00 AM EST Clinical Support [facility] MED & PEDS [address] [place] [address] Marisol Thomas, RN [address] [place] [address] 07/10/2025 8:00 AM EDT Office Visit [facility] ADULT DENTAL [address] [place] [address] Louis Brennan documented as of this encounter Visit Diagnoses Not on filedocumented in this encounter Additional Health Concerns Assessment Noted Time PHQ-9 Depression Total Score: 0 07/11/19 23 3:46 PM EDT documented as of this encounter Care Teams Comber Fixer Relationship Specialty Start Date End Date Gonzales Brennan MD [address] [place] [address] PCP - General Internal Medicine 04/27/18 documented as of this encounter
--- OUTSIDE RECORDS SUMMARY | 2025-03-29 18:42 | XMS_ITS | Encounter Summary ---
Author Organization [employer] Address [address] [facility] 7 [place] [address] Care Team Providers Care Fish Hatchery Inspector Name Role Phone Gonzales Brennan MD Primary Care Provider [phone] Reason for Visit * Reason Onset Date Comments Hospital Follow-up 08/14/2023 Encounter Details Date Type Department Care Team ([facility] st Contact Info) Description 08/14/2023 Telephone [facility] MEDICINE [address] [place] [address] Gonzales Brennan MD [address] [place] [address] Hospital Follow-up Social History Tobacco Use Types [...] from pt requesting a HDF appt. Hospital: [facility] Date of admission: 07/29 Discharge date: 08/10 Diagnosed: Pneumonia documented in this encounter Plan of Treatment Upcoming Encounters Date Type Department Care Team (Late st Contact Info) Description 05/30/2025 9:00 AM EST Clinical Support [facility] MED & PEDS [address] [place] [address] Marisol Thomas RN [address] [place] [address] 07/10/2025 8:00 AM EDT Office Visit [facility] ADULT DENTAL [address] [place] [address] Louis Brennan documented as of this encounter Visit Diagnoses Not on filedocumented in this encounter Additional Health Concerns Assessment Noted Time PHQ-9 Depression Total Score: 0 07/11/19 23 3:46 PM EDT documented as of this encounter Care Teams Fish Hatchery Inspector Relationship Specialty Start Date End Date Gonzales Brennan MD [address] [place] [address] PCP - General Internal Medicine 04/27/18 documented as of this encounter
--- OUTSIDE RECORDS SUMMARY | 2025-03-29 18:42 | XMS_ITS | Encounter Summary ---
Author Organization [employer] [facility] Address [address] [place] [address] Phone Care Team Providers Care Porcelain Enameling Supervisor Name Role Phone Gonzales Brennan MD Primary Care Pr ovider Jonah Umanzor MD Unavailable [phone] Encounter Details Date Type Department Care Team (Late st Contact Info) Description 04/23/[address] [facility] PERIOPERATIVE DEPT [address] [place] [address] Social History Tobacco Use Types [...] on filedocumented in this encounter Care Teams Porcelain Enameling Supervisor Relationship Specialty Start Date End Date Gonzales Brennan MD [address] [facility] [address] [place] [address] PCP - General Internal Medicine 03/13/20 Jonah Umanzor MD [address] [place] [address] [address] [place] [address] Cardiology 04/16/20 documented as of this encounter Additional Source Comments The information contained in this document represents components of the legal health record. It is not the complete legal health record.[facility]
--- OUTSIDE RECORDS SUMMARY | 2025-03-29 18:42 | XMS_ITS | Encounter Summary ---
Author Organization [employer] Address [address] [facility] 7t [place] [address] Care Team Providers Care Family Service Worker Name Role Phone Gonzales Brennan MD Primary Care Provider [phone] Encounter Details Date Type Department Care Team ([facility] st Contact Info) Description 08/28/2023 Orders Only [facility] CHC MED & PEDS [address] [place], [place] [phone] Gonzales Brennan MD [address] [place] [address] Atherosclerosis of [place] coronary artery of [place] heart without angina pectoris (Primary Dx) Social [...] Description 05/30/2025 9:00 AM EST Clinical Support [facility] MED & PEDS [address] [place] [address] Marisol Thomas RN [address] [place] [address] 07/10/2025 8:00 AM EDT Office Visit [facility] ADULT DENTAL [address] [place] [address] Louis Brennan documented as of this encounter Visit Diagnoses Diagnosis Atherosclerosis of [place] coronary artery of [place] heart without angina pectoris- Primary documented in this encounter Additional Health Concerns Assessment Noted Time PHQ-9 Depression Total Score: 0 07/11/19 23 3:46 PM EDT documented as of this encounter Care Teams Family Service Worker Relationship Specialty Start Date End Date Gonzales Brennan MD [address] [place] [address] PCP - General Internal Medicine 04/27/18 documented as of this encounter
--- OUTSIDE RECORDS SUMMARY | 2025-03-29 18:42 | XMS_ITS | Clinical Summary ---
Author Organization [facility] Address [address] [place] [address] Care Team Providers Care Utility Sales And Service Manager Name Role Phone Unavailable Primary Care Provider Unavailabl e Surgical History Surgery Date Site/Laterality Comments OTHER SURGICAL HISTORY Right PROCEDURE: SD RESCJ&BRONCHOPLASTY PFRMD TM LOBEC/SGMECTOMY Medical History Medical [...] 2) 2004 Depression Screening 04/27/2024 COVID-19 Vaccine (2024-2 6 season) 2024 Influenza Vaccine (#1) 2024 RSV [...] Documents on File Type Date Recorded Patient Dry End Tester Expl anation Health Care Decision (hx) 08/01/2021 AD CERDA DIRECTIVE Health Care Decision (hx) 08/01/2021 AD CERDA DIRECTIVE
--- OUTSIDE RECORDS SUMMARY | 2025-03-29 18:42 | XMS_ITS | Encounter Summary ---
Author Organization [employer] Address [address] [facility] 7t [place] [address] Care Team Providers Care Internet Developer Name Role Phone Gonzales Brennan MD Primary Care Provider [phone] Encounter Details Date Type Department Care Team ([facility] st Contact Info) Description 12/02/[address] [facility] CHC MED & PEDS [address] [place], [place] [phone] Gonzales Brennan MD [address] [place], [place] [phone] Neck pain (Primary Dx) Social History Tobacco [...] [facility] [address] [place] [address] Marisol Thomas RN [address] [place] [address] 07/10/2025 8:00 AM EDT Office Visit [facility] ADULT DENTAL [address] [place] [address] Louis Brennan Scheduled Orders Name Type Priority [...] PM EDT Narrative 01/25/2024 3:47 PM EDT [address] [address] XRay Report Signed Patient: Sean Hinkle MR#: [id number] 2 : 1955 Acct:[id number] Age/Sex: 68 / M ADM Date: 12/03/23 Loc: JOAN Attending Dr: Gonzales Brennan MD Ordering Physician: Goznales Brennan MD Date of Service: 12/03/23 Procedure(s): XR cervical spine 3V Accession Number(s): [id number] cc: Gonzales Brennan MD EXAMINATION: XR CERVICAL [...] 01/25/24 1544 DD/ 1338 TD/TT: 12/03/23 1350 Research Group Director: Procedure Note Donotuseinterpreter, Image - 01/25/[address] [address] XRay Report Signed Patient: Sean HinkleMR#: [id number] 2 : 5Acct:[id number] Age/Sex: 68 / MADM Date: 12/03/23 Loc: HO.XRAY Attending Dr: Gonzales Brennan MD Ordering Physician: Gonzales Brennna MD Date of Service: 12/03/23 Procedure(s): XR cervical spine 3V Accession Number(s): [id number] cc: Gonzales Brennan MD EXAMINATION: XR CERVICAL [...] 01/25/24 1544 DD/ 1338 TD/TT: 12/03/23 1350 Research Group Director: us Gonzales Brennan MD IMG XR PROCEDURES Final Res ult documented in this encounter Visit Diagnoses Diagnosis Neck pain- Primary Cervicalgia documented in this encounter Additional Health Concerns Assessment Noted Time PHQ-9 Depression Total Score: 0 07/11/19 23 3:46 PM EDT documented as of this encounter Care Teams Internet Developer Relationship Specialty Start Date End Date Gonzales Brennan MD [address] [place] [address] PCP - General Internal Medicine 04/27/18 documented as of this encounter
--- OUTSIDE RECORDS SUMMARY | 2025-03-29 18:42 | XMS_ITS | Encounter Summary ---
Author Organization [employer] Address [address] [facility] [address] [place] [address] Care Team Providers Care Manager Transmission Name Role Phone Gonzales Brennan MD Primary Care Provider [phone] Encounter Details Date Type Department Care Team (Late st Contact Info) Description 03/29/2025 Telephone [facility] [address] [place], [place] [phone] Candy Klein, LEVI [address] [place], [place] [phone] Social History Tobacco Use Types Packs/Day Years [...] Description 05/30/2025 9:00 AM EST Clinical Support [facility] MED & PEDS [address] [place] [address] Marisol Thomas RN [address] [place] [address] 07/10/2025 8:00 AM EDT Office Visit [facility] ADULT DENTAL [address] [place] [address] Louis Brennan documented as of this encounter Goals Goal Patient Goal Type Associated Problems Recent Progress Patient-Stated? Author Help patients manage their type 2 diabetes Care Plan Help patients manage their type 2 diabetes Tamara Walters MD Weekly blood pressure task Care Plan Weekly blood pressure task No Tamara Wick MD Help patients manage their type 2 diabetes Care Plan Help patients manage their type 2 diabetes Tamara Walters MD Patient has chronic kidney disease Care Plan Patient has chronic kidney disease Tamara Walters MD Weekly blood pressure task Care Plan Weekly blood pressure task No Tamara Wick MD Patient has chronic kidney disease Care Plan Patient has chronic kidney disease No Tamara Wick MD Weekly blood pressure task Care Plan Weekly blood pressure task No Candy Klein RN Weekly blood pressure task Care Plan Weekly blood pressure task No Candy Klein, LEVI Patient has chronic kidney disease Care Plan Patient has chronic kidney disease No Candy Klein, LEVI Patient has chronic kidney disease Care Plan Patient has chronic kidney disease No Candy Klein RN documented as of this encounter Visit Diagnoses Not on filedocumented in this encounter Additional Health Concerns Active [...] as of this encounter Care Teams Manager Transmission Relationship Specialty Start Date End Date Gonzales Brennan MD [address] [place] [address] PCP - General Internal Medicine 04/27/18 documented as of this encounter
--- OUTSIDE RECORDS SUMMARY | 2025-03-29 18:42 | XMS_ITS | Encounter Summary ---
Author Organization [employer] Address [address] [facility] 7t [place] [address] Care Team Providers Care Senior Python Developer Name Role Phone Gonzales Brennan MD Primary Care Provider [phone] Reason for Visit * Reason Onset Date Comments Referral 05/04/2024 Encounter Details Date Type Department Care Team ([facility] st Contact Info) Description 05/04/2024 Telephone [facility] MEDICINE [address] [place] [address] Gonzales Brennan MD [address] [place] [address] Referral Social History Tobacco Use Types Packs/Day [...] PM EST Most recent notes faxed to [phone]. * Telephone Encounter - Pia Philip - 05/04/2024 3:12 PM EST Tc from Laura from [facility] Neuro[facility] facility stating referral was received with CT scan but no office notes, Laura stated she needs notes on referral to be faxed over to them. [phone] documented in this encounter Plan of Treatment Upcoming Encounters Date Type Department Care Team (Late st Contact Info) Description 05/30/2025 9:00 AM EST Clinical Support [facility] MED & PEDS [address] [place] [address] Marisol Thomas, LEVI [address] [place] [address] 07/10/2025 8:00 AM EDT Office Visit [facility] ADULT DENTAL [address] [place] [address] Louis Brennan documented as of this encounter Visit Diagnoses Not on filedocumented in this encounter Additional Health Concerns Assessment Noted Time PHQ-9 Depression Total Score: 0 07/11/19 23 3:46 PM EDT documented as of this encounter Care Teams Senior Python Developer Relationship Specialty Start Date End Date Gonzales Brennan MD [address] [place] [address] PCP - General Internal Medicine 04/27/18 documented as of this encounter
--- OUTSIDE RECORDS SUMMARY | 2025-03-29 18:42 | XMS_ITS | Clinical Summary ---
Author Organization [facility] Address [address] [place] [address] Phone Care Team Providers Care Insurance Claims Examiner Name Role Phone Gonzales Brennan MD Primary Care Pr ovider Jonah Umanzor MD Unavailable [phone] Allergies Active Allergy Reactions Criticality Noted Date [...] Medical Devices Not on file Insurance #1 [place] [address] MEDICARE PART A & B Xapo NET FULL MEDICARE PART A & B Xapo NET FULL MEDICARE PART A & B Xapo [facility] FULL MEDICARE PART A & B FULL MEDICARE PART A & B [facility] FULL #1 [place] [address] MEDICARE PART A & B FULL #1 [place] [address] MEDICARE PART A & B FULL #1 [place] [address] MEDICARE PART A & B FULL #1 [place] [address] MEDICARE PART A & B [facility] FULL Care Teams Insurance Claims Examiner Relationship Specialty Start Date End Date Gonzales Brennan MD [address] [place] [address] 1 [place] [address] PCP - General Internal Medicine 03/13/20 Jonah Umanzor MD [address] [place] [address] [address] [place] [address] Cardiology 04/16/20 Additional Source Comments The information contained in this document represents components of the legal health record. It is not the complete legal health record.[facility]
--- OUTSIDE RECORDS SUMMARY | 2025-03-29 18:42 | XMS_ITS | Encounter Summary ---
Author Organization [employer] Address [address] [facility] 7 [place] [address] Care Team Providers Care Sales And Support Center Agent Name Role Phone Gonzales Brennan MD Primary Care Provider [phone] Reason for Visit * Reason Onset Date Comments Hospital Follow-up 12/27/2024 Encounter Details Date Type Department Care Team ([facility] st Contact Info) Description 12/27/2024 Telephone [facility] MED & PEDS [address] [place], [place] [phone] Gonzales Brennan MD 505 [place] [address] Hospital Follow-up Social History Tobacco Use Types [...] from pt requesting a HDF appt. Hospital: [facility] Date of admission: 12/24 Discharge date: 12/25 Diagnosed: pt in icu unit , checked himself out against physican , pt states he was in hospital dueto his bp being extremely low 85/50 *Send message to [place] Clinical Care Coordinators documented in this encounter Plan of Treatment Upcoming Encounters Date Type Department Care Team (Late st Contact Info) Description 05/30/2025 9:00 AM EST Clinical Support [facility] MED & PEDS [address] [place] [address] Marisol Thomas RN 505 [place] [address] 07/10/2025 8:00 AM EDT Office Visit [facility] ADULT DENTAL [address] [place] [address] Louis Brennan documented as of this encounter Visit Diagnoses Not on filedocumented in this encounter Additional Health Concerns Assessment Noted Time PHQ-9 Depression Total Score: 0 07/11/19 23 3:46 PM EDT documented as of this encounter Care Teams Sales And Support Center Agent Relationship Specialty Start Date End Date Gonzales Brennan MD [address] [place] [address] PCP - General Internal Medicine 04/27/18 documented as of this encounter
--- OUTSIDE RECORDS SUMMARY | 2025-03-29 18:42 | XMS_ITS | Encounter Summary ---
Author Organization [employer] [facility] Address [address] [place] [address] Phone Care Team Providers Care Electric Lineman Name Role Phone Gonzales Brennan MD Primary Care Pr ovider Jonah Umanzor MD Unavailable [phone] Encounter Details Date Type Department Care Team (Late st Contact Info) Description 05/02/2020 Procedure Pass [facility] [address] [place] [address] Social History Tobacco Use Types [...] on filedocumented in this encounter Care Teams Electric Lineman Relationship Specialty Start Date End Date Gonzales Brennan MD [address] [facility] [address] [place] [address] PCP - General Internal Medicine 03/13/20 Jonah Umanzor MD [address] [place] [address] [address] [place] [address] Cardiology 04/16/20 documented as of this encounter Additional Source Comments The information contained in this document represents components of the legal health record. It is not the complete legal health record.[facility]
--- OUTSIDE RECORDS SUMMARY | 2025-03-29 18:42 | XMS_ITS | Encounter Summary ---
Author Organization [employer] Address [address] [facility] 7t [place] [address] Care Team Providers Care Drafter Chief Design Name Role Phone Gonzales Brennan MD Primary Care Provider [phone] Encounter Details Date Type Department Care Team (Late st Contact Info) Description 12/01/2024 Telephone [facility] MEDICINE [address] [place] [address] Gonzales Brennan MD 505 [place] [address] Social History Tobacco Use Types Packs/Day Years [...] Description 05/30/2025 9:00 AM EST Clinical Support [facility] MED & PEDS 505 [place] [address] Marisol Thomas, RN 505 [place] [address] 07/10/2025 8:00 AM EDT Office Visit [facility] ADULT DENTAL 505 [place] [address] Louis Brennan documented as of this encounter Visit Diagnoses Not on filedocumented in this encounter Additional Health Concerns Assessment Noted Time PHQ-9 Depression Total Score: 0 07/11/19 23 3:46 PM EDT documented as of this encounter Care Teams Drafter Chief Design Relationship Specialty Start Date End Date Gonzales Brennan MD 505 [place] [address] PCP - General Internal Medicine 04/27/18 documented as of this encounter
--- OUTSIDE RECORDS SUMMARY | 2025-03-29 18:42 | XMS_ITS | Encounter Summary ---
Author Organization [employer] Address 75 [facility] 7t [place] [address] Care Team Providers Care Product Transfer Pumper Name Role Phone Gonzales Brennan MD Primary Care Provider [phone] Reason for Visit * Reason Onset Date Comments returning call 09/02/2024 Encounter Details Date Type Department Care Team ([facility] st Contact Info) Description 09/02/2024 Telephone [facility] ADULT DENTAL 505 [place], [place] [phone] Diaz Merida, DMD 505 [place] [address] returning call Social History Tobacco Use Types [...] Description 05/30/2025 9:00 AM EST Clinical Support [facility] MED & PEDS 505 [place] [address] Marisol Thomas, LEVI 505 [place] [address] 07/10/2025 8:00 AM EDT Office Visit [facility] ADULT DENTAL 505 [place] [address] Louis Brennan documented as of this encounter Visit Diagnoses Not on filedocumented in this encounter Additional Health Concerns Assessment Noted Time PHQ-9 Depression Total Score: 0 07/11/19 23 3:46 PM EDT documented as of this encounter Care Teams Product Transfer Pumper Relationship Specialty Start Date End Date Gonzales Brennan MD 505 [place] [address] PCP - General Internal Medicine 04/27/18 documented as of this encounter
--- OUTSIDE RECORDS SUMMARY | 2025-03-29 18:42 | XMS_ITS | Encounter Summary ---
Author Organization [employer] Address [address] [facility] 7t [place] [address] Care Team Providers Care Apple Picking Supervisor Name Role Phone Gonzales Brennan MD Primary Care Provider [phone] Encounter Details Date Type Department Care Team (Latest Contact Info) Description 03/29/2025 Travel Social History Tobacco Use Types Packs/Day [...] [facility] MED & PEDS 505 [place] [address] Marisol Thomas RN 505 [place] [address] 07/10/2025 8:00 AM EDT Office Visit [facility] ADULT DENTAL 505 [place] [address] Louis Brennan documented as of this encounter [...] blood pressure task No Candy Klein RN Patient has chronic kidney disease Care Plan Patient has chronic kidney disease No Candy Klein RN Patient has chronic kidney disease Care [...] documented as of this encounter Care Teams Apple Picking Supervisor Relationship Specialty Start Date End Date Gonzales Brennan MD [address] [place] [address] PCP - General Internal Medicine 04/27/18 documented as of this encounter
--- OUTSIDE RECORDS SUMMARY | 2025-03-29 18:42 | XMS_ITS | Encounter Summary ---
Author Organization [employer] Address [address] [facility] 7t [place] [address] Care Team Providers Care Heating Operators Engineer Name Role Phone Gonzales Brennan MD Primary Care Provider [phone] Encounter Details Date Type Department Care Team ([facility] Contact Info) Description 03/29/2025 Orders Only [facility] External Provider, [facility] Social History Tobacco Use Types Packs/Day Years [...] AM EST Clinical Support [facility] MED & PEDS 505 [place] [address] Marisol Thomas RN 505 [place] [address] 07/10/2025 8:00 AM EDT Office Visit [facility] ADULT DENTAL 505 [place] [address] Louis Brennan documented as of this encounter Goals Goal Patient Goal Type Associated Problems Recent Progress Patient-Stated? Author Help patients manage their type 2 diabetes Care Plan Help patients manage their type 2 diabetes No Tamara Wick MD Weekly blood pressure task Care Plan Weekly blood pressure task No Tamara Wick MD Help patients manage their type 2 diabetes Care Plan Help patients manage their type 2 diabetes No Tamara Wick MD Patient has chronic [...] Klein RN documented as of this encounter Procedures Procedure Name Priority Date/Time Associated Diagnosis Comments XR CHEST 1 VIEW Routine 03/29/2025 3:43 PM EST STREP A NUCLEIC ACID Routine 03/29/2025 3:42 PM EST HIGH SENSITIVITY TROPONIN I Routine 03/29/2025 3:42 PM EST SARS COV2/INFLUENZA A/B AND RSV RNA QL NAAT Routine 03/29/2025 3:42 PM EST NT-PROBNP Routine 03/29/2025 3:42 PM EST LACTIC ACID Routine 03/29/2025 3:42 PM EST COMPREHENSIVE METABOLIC PANEL Routine 03/29/2025 3:42 PM EST documented in this encounter Results * XR Chest 1 View (03/29/2025 3:43 PM EST) Anatomical Region Laterality Modality Chest Radiographic Dahlia ging 03/29/2025 3:43 PM EST Narrative 03/29/2025 3:55 PM EST [place] [address] XRay Report Signed Patient: Sean Hinkle MR#: [id number] 2 : 1955 Acct:[id number] Age/Sex: 69 / M ADM Date: 03/29/25 Loc: .ED Attending Dr: Ordering Physician: Darryn Hernandez Date of Service: 03/29/25 Procedure(s): XR chest 1V Accession Number(s): [id number] cc: Darryn Hernandez; Gonzales Brennan MD Reason for Exam: Pneumonia EXAMINATION: XR CHEST 1 VIEW HISTORY: Pneumonia COMPARISON: Comparison is made with the prior examination dated 07/30/2023. FINDINGS: A single AP portable view of the chest performed at 3:43 PM is submitted. There are mild increased markings at the right lung base, similar in appearance to the prior study. No definite new airspace opacity is seen. There is no pleural effusion, pneumothorax, or pulmonary vascular congestion. The heart is normal in size. There is degenerative disc disease of the spine. A fusion plate is seen in the lower cervical spine. XR/XR chest 1V IMPRESSION: No acute cardiopulmonary abnormality. Electronically signed by: Gerson Estrada MD 03/29/2025 03:52 PM EST RP Dictated By: Gerson Estrada MD Signed By: <Electronically signed by Gerson Estrada MD in OV> 03/29/25 1552 DD/ 1543 TD/TT: 03/29/25 1548 Ophthalmology Assistant: Procedure Note Donotuseinterpreter, Image - 03/29/[address] [address] XRay Report Signed Patient: Sean HinkleMR#: [id number] 2 : 5Acct:[id number] Age/Sex: 69 / MADM Date: 03/29/25 Loc: .ED Attending Dr: Ordering Physician: Darryn Hernandez Date of Service: 03/29/25 Procedure(s): XR chest 1V Accession Number(s): [id number] cc: Darryn Hernandze; Gonzales Brennan MD Reason for Exam: Pneumonia EXAMINATION: XR CHEST 1 VIEW HISTORY: Pneumonia COMPARISON: Comparison is made with the prior examination dated 07/30/2023. FINDINGS: A single AP portable view of the chest performed at 3:43 PM is submitted. There are mild increased markings at the right lung base, similar in appearance to the prior study. No definite new airspace opacity is seen. There is no pleural effusion, pneumothorax, or pulmonary vascular congestion. The heart is normal in size. There is degenerative disc disease of the spine. A fusion plate is seen in the lower cervical spine. XR/XR chest 1V IMPRESSION: No acute cardiopulmonary abnormality. Electronically signed by: Gerson Estrada MD 03/29/2025 03:52 PM EST RP Dictated By: Gerson Estrada MD Signed By: <Electronically signed by Gerson Estrada MD in OV> 03/29/25 1552 DD/ 1543 TD/TT: 03/29/25 1548 Ophthalmology Assistant: us [facility] External Provider IMG XR PROCEDURES Final Result * (ABNORMAL) NT-proBNP (03/29/2025 3:42 PM EST) NT-proBNP 484.8(H) <300 pg/mL [facility] Comment:Reference Range:Age Group (years) NT-proBNP (pg/ml) InterpretationAll <300 Negative: HF unlikelyFor patients presenting to the ED with clinical suspicion ofnew onset or worsening HF, see below:18 to <50 >299.9 to <450.0 Grayzone: [id number] to 75 >299.9 to <900.0 other causes of>75 >299.9 to <1800.0 NT-proBNP [id number] to <50 >449.9 Positive: HF [id number] >899.9>75 >1799.9Note: Elevated NT-proBNP levels should be interpreted inthe context of other clinical information. 03/29/2025 3:42 PM EST 03/29/2025 3:48 PM EST Generic External Data Provider LAB BLOOD ORDERAB LES Final Result [facility] [address] [place] [phone] * SARS-CoV-2 RNA, Influenza A/B, and RSV RNA, Ql NAAT (03/29/2025 3:42 PM EST) Influenza A PCR NEGATIVE Negative [facility] Influenza B PCR NEGATIVE Negative [facility] Resp Syncy Virus RNA Qual PCR NEGATIVE Negative [facility] SARS COV2 PCR NEGATIVE Negative [facility] Comment:All test results mus t be correlated with clinical findings.Negative results do not preclude SARS-CoV2, influenza Avirus, influenza B virus and/or RSV infectionand should not be used as the sole basis for treatment orother patient management decisions. Negative results must becombined with clinical observations, patient history, andepidemiological information.This test has not been evaluated for monitoring treatment ofinfection.This test has been authorized by the FDA under an EmergencyUse Authorization (EUA) for use by authorized laboratories.Testing performed on the [employer] GeneXpert utilizingreal-time RT-PCR.All SARS CoV2 and positive influenza A/B results arereported to [facility]. 03/29/2025 3:42 PM EST 03/29/2025 3:48 PM EST Generic External Data Provider LAB MICROBIOLOGY - GENERAL ORDERABLES Final Result Performing Organization Address [facility] Co de Phone Number [facility] [address] [place] [phone] * High Sensitivity Troponin I (03/29/2025 3:42 PM EST) [facility] TROPONIN I HIGH SENSITIVITY 4.8 <3.5 - 35.0 ng/L [facility] Comment:The Rosario high sens itivity Troponin-I results should beused in conjunction with other diagnostic information suchas ECG, clinical observations and information, and patientsymptoms to aid in the diagnosis of ID. 03/29/2025 3:42 PM EST 03/29/2025 3:48 PM EST Generic External Data Provider LAB BLOOD ORDERAB LES Final Result Performing Organization Address [facility] Number [facility] [address] [place] [phone] * Lactic Acid (03/29/2025 3:42 PM EST) Pathologist [facility] Lactic Acid 1.8 0.5 - 2.0 mmol/L [facility] 03/29/2025 3:42 PM EST 03/29/2025 3:48 PM EST Generic External Data Provider LAB BLOOD ORDERAB LES Final Result Performing Organization Address [facility] de Phone Number [facility] [address] [place] [phone] * (ABNORMAL) Comprehensive Metabolic Panel (03/29/2025 3:42 PM EST) Sodium 141 135 - 145 mmol/L [facility] Potassium 4.4 3.3 - 5.1 mmol/L [facility] Chloride 107 96 - 108 mmol/L [facility] Carbon Dioxide 25 22 - 29 mmol/L [facility] Anion Gap 13 12 - 20 [facility] Urea Nitrogen (BUN) 18(H) 9 - 16 mg/dL [facility] Creatinine, Serum 1.01 0.5 - 1.4 mg/dL [facility] Creatinine Clr Calc Pharmacy 73.6 [facility] Comment:eGFR (calculated fro m the MDRD study equation) and eCrCl(calculated from the Cockcroft-Gault equation) are based ondifferent parameters and may not yield comparable results.If eCrCl result is absurd, please check patient'sheight/weight. Estimated Glomerular Filt Rate >60 [facility] Comment:Chronic Kidney Disea se: Estimated GFR < 60 mL/min/1.64e1Cforum Kidney Disease: Estimated GFR < 15 mL/min/1.73m2 Glucose 123(H) 60 - 115 mg/dL [facility] Calcium 9.8 8.4 - 10.2 mg/dL [facility] Bilirubin, Total 0.2 0.0 - 1.0 mg/dL [facility] Aspartate Amino Transferase 29 5 - 37 U/L [facility] Alanine Aminotransferase 34 0 - 40 U/L [facility] Total Protein 7.7 6.5 - 8.0 g/dL [facility] Albumin Level 4.0 3.5 - 5.0 g/dL [facility] Alkaline Phosphatase 93 39 - 117 U/L [facility] 03/29/2025 3:42 PM EST 03/29/2025 3:48 PM EST us Generic External Data Provider LAB BLOOD ORDERAB LES Final Result [facility] [address] [place] [address] [phone] * Strep A Nucleic Acid (03/29/2025 3:42 PM EST) [employer] SERIAL# [id number] [facility] Strep A Nucleic Acid Negative Negative [facility] Comment:All test results mus t be correlated with clinical findings.This test has not been evaluated for monitoring treatment ofinfection.Additional follow-up testing using the culture method isrequired if the result is negative and clinical symptomspersist, or in the event of an acute rheumatic feveroutbreak. 03/29/2025 3:42 PM EST 03/29/2025 3:48 PM EST us Generic External Data Provider LAB MICROBIOLOGY - GENERAL ORDERABLES Final Result [facility] [address] [place] [address] [phone] documented in this encounter Visit Diagnoses Not on filedocumented [...] documented as of this encounter Care Teams Heating Operators Engineer Relationship Specialty Start Date End Date Gonzales Brennan MD [address] [place] [address] PCP - General Internal Medicine 04/27/18 documented as of this encounter
--- OUTSIDE RECORDS SUMMARY | 2025-03-29 18:42 | XMS_ITS | Encounter Summary ---
Author Organization [employer] Address [address] [facility] 7 [place] [address] Care Team Providers Care Acute Care Registered Nurse Name Role Phone Gonzales Brennan MD Primary Care Provider [phone] Reason for Visit * Reason Onset Date Comments Request For Order(s) 12/01/2023 Encounter Details Date Type Department Care Team ([facility] st Contact Info) Description 12/01/2023 Telephone [facility] MEDICINE [address] [place] [address] Gonzales Brennan MD [address] [place] [phone] Request For Order(s) Social History Tobacco Use [...] [facility] MED & PEDS [address] [place] [address] Marisol Thomas, LVEI 505 [place] [address] 07/10/2025 8:00 AM EDT Office Visit [facility] ADULT DENTAL 505 [place] [address] Louis Brennan documented as of this encounter Visit Diagnoses Not on filedocumented in this encounter Additional Health Concerns Assessment Noted Time PHQ-9 Depression Total Score: 0 07/11/19 23 3:46 PM EDT documented as of this encounter Care Teams Acute Care Registered Nurse Relationship Specialty Start Date End Date Beauzile, Thevenin, MD [address] [place] [address] PCP - General Internal Medicine 04/27/18 documented as of this encounter
--- OUTSIDE RECORDS SUMMARY | 2025-03-29 18:43 | XMS_ITS | Encounter Summary ---
Author Organization [employer] Address [address] [place] [address] 7 [place] [address] Care Team Providers Care Outer Diameter Grinder Name Role Phone Gonzales Brennan MD Primary Care Provider [phone] Reason for Referral * Imaging (Routine) - Closed Specialty Diagnoses / Procedures Referred By Thad rosales Referred To Contact Radiology Diagnoses Neck pain Procedures CT Cervical Spine w/o Contrast Gonzales Brennan MD [address] [place] [address] Phone: tel: fax: [address] [phone] Phone: tel: fax: Referral ID Status Reason Start Date Expiration Date Visits Re quested Visits Authorized [id number] Closed 01/27/2024 01/26/2025 1 1 Encounter Details Date Type Department Care Team (Late st Contact Info) Description 01/27/2024 Orders Only [facility] MED & PEDS [address] [place], [place] [phone] Gonzales Brennan MD [address] [place], [place] [phone] Neck pain (Primary Dx) Social History Tobacco [...] Description 05/30/2025 9:00 AM EST Clinical Support [facility] MED & PEDS [address] [place] [address] Marisol Thomas RN 505 [place] [address] 07/10/2025 8:00 AM EDT Office Visit [facility] ADULT DENTAL [address] [place] [address] Louis Brennan documented as of this encounter Procedures Procedure Name Priority Date/Time Associated Diagnosis Comments CT CERVICAL SPINE WO CONTRAST Routine 02/02/2024 8:59 AM EDT Neck pain documented in this encounter Results * CT Cervical Spine w/o Contrast (02/02/2024 8:59 AM EDT) Anatomical Region Laterality Modality Spine, C-spine Computed Tomogra phy 02/02/2024 8:59 AM EDT Narrative 04/04/2024 11:41 AM EST [address] [address] [address] Scan Report Signed Patient: Sean Hinkle MR#: [id number] 2 : 1955 Acct:[id number] Age/Sex: 68 / M ADM Date: 02/02/24 Loc: HO.CT Attending Dr: Gonzales Brennan MD Ordering Physician: Gonzales Brennan MD Date of Service: 02/02/24 Procedure(s): CT cervical spine wo IV con Accession Number(s): [id number] cc: Gonzales Brennan MD EXAMINATION: CT CERVICAL [...] by: Taurus Trent MD 04/04/2024 11:38 AM [facility] Dictated By: Taurus Trent MD Signed By: <Electronically signed by Taurus Trent MD in OV> 04/04/24 1138 DD/ 0859 TD/TT: 02/02/2414 Metal Precision Machine Assembler: Procedure Note Donotarabellainterpreter, Image - 04/04/[address] [address] [address] Scan Report Signed Patient: Jewell Hinkle#: [id number] 2 : 5Acct:[id number] Age/Sex: 68 / MADM Date: 02/02/24 Loc: HO.CT Attending Dr: Goznales Brennan MD Ordering Physician: Gonzales Brennan MD Date of Service: 02/02/24 Procedure(s): CT cervical spine wo IV con Accession Number(s): [id number] cc: Gonzales Brennan MD EXAMINATION: CT CERVICAL [...] by: Taurus Trent MD 04/04/2024 11:38 AM [facility] Dictated By: Taurus Trent MD Signed By: <Electronically signed by Taurus Trent MD in OV> 04/04/24 1138 DD/ 0859 TD/TT: 02/02/24 0914 Metal Precision Machine Assembler: Gonzales Brennan MD IMG CT PROCEDURES Final Res ult documented in this encounter Visit Diagnoses Diagnosis Neck pain- Primary Cervicalgia documented in this encounter Additional Health Concerns Assessment Noted Time PHQ-9 Depression Total Score: 0 07/11/19 23 3:46 PM EDT documented as of this encounter Care Teams Outer Diameter Grinder Relationship Specialty Start Date End Date Gonzales Brennan MD [address] [place] [address] PCP - General Internal Medicine 04/27/18 documented as of this encounter
--- OUTSIDE RECORDS SUMMARY | 2025-03-29 18:43 | XMS_ITS | Clinical Summary ---
Author Organization [employer] Address [address] [place] [address] 7[address] [place] [address] Care Team Providers Care Gravity Meter Observer Name Role Phone Gonzales Brennan MD Primary Care Provider [phone] Allergies Active Allergy Reactions Criticality Noted Date [...] obstructive pulmonary disease with acute exacerbation (CMS/HCC) ([facility]) INHALE 2.5 MG (3 ML) INHALED EVERY 6 HOURS NEEDED FOR SHORTNESS OF BREATH OR WHEEZING FOR 30 DAYS 75 mL 11 Active albuterol 108 (90 Base) MCG/ACT inhalerIndication s:Chronic obstructive pulmonary disease with acute exacerbation (CMS/HCC) ([facility]) INHALE TWO PUFFS EVERY 4 [...] (Clinpro 5000) 1.1 % pasteIndications: Dental caries Foley teeth for 2 minutes, morning and night. Spit, do not rinse. Do not eat or drink anything for 30 minutes following use. 339 g 3 Active FLUoxetine (PROzac) 40 MG capsuleIndication s:Anxiety state TAKE ONE CAPSULE EVERY MORNING 30 capsule 11 Active Aspirin Adult Low Strength 81 MG EC tabletIndications :Essential hypertension,Athe rosclerosis of [place] coronary artery of [place] heart without angina pectoris TAKE ONE TABLET EVERY NIGHT AT BEDTIME 30 tablet 11 Active glipiZIDE XL (Glucotrol XL) 5 MG 24 hr tabletIndications :Type 2 diabetes mellitus with diabetic polyneuropathy (HCC) TAKE ONE TABLET EVERY MORNING WITH BREAKFAST 30 tablet Active tamsulosin (Flomax) 0.4 MG 24 hr capsule TAKE ONE CAPSULE EVERY EVENING 30 capsule 11 Active atorvastatin (Lipitor) 40 MG tablet Take 1 tablet (40 mg) by mouth Once per day. 30 tablet 11 03/20/20 25 10:47 AM EST 025 Active metFORMIN (Glucophage) 1000 MG tablet TAKE ONE TABLET IN THE MORNING AND EVENING 60 tablet 5 Active baclofen (Lioresal) 10 MG tabletIndications :Back [...] not crush or chew. 30 tablet 11 03/20/20 25 10:47 AM EST 025 Active nitroglycerin (Nitrostat) 0.4 MG SL tabletIndications :Atherosclerosis of [place] coronary artery of [place] heart without angina pectoris take 1 Tablet by Sublingual route every 5 minutes As needed for Chest pain 90 tablet 3 025 Active FREESTYLE LITE test stripIndications: Type 2 diabetes mellitus without complication, without long-term current use of insulin ([facility]) Use to test blood sugar 2 times daily 100 each 12 025 2025 Active Lancets miscIndications:T ype 2 diabetes mellitus without complication, without long-term current use of insulin ([facility]) Use to test blood sugar 2 times daily 100 each Active Alcohol Swabs 70 % padsIndications:T ype 2 diabetes mellitus without complication, without long-term current use of insulin ([facility]) Use to test blood sugar 2 times daily 100 each Active Blood Glucose Monitoring Suppl (FreeStyle Sadorus Lite) w/Device kitIndications:Ty pe 2 diabetes mellitus without complication, without long-term current use of insulin ([facility]) Use to test blood sugar 2 times daily 1 kit Active Sodium Fluoride 1.1 % creamIndications: Dental caries Foley teeth for 2 minutes, morning and night. [...] HOURS NEEDED FOR SEVERE PAIN 21 tablet Active gabapentin (Neurontin) 600 MG tabletIndications :Type 2 diabetes mellitus with hyperglycemia, without long-term current use of insulin ([facility]) TAKE ONE TABLET THREE TIMES DAILY IN THE MORNING, EVENING AND BEDTIME 90 tablet 3 025 Active gabapentin (Neurontin) 600 MG tabletIndications :Type 2 diabetes mellitus with hyperglycemia, without long-term current use of insulin ([facility]) TAKE ONE TABLET THREE TIMES DAILY IN THE MORNING, EVENING AND BEDTIME 90 tablet 3 025 2024 Discontinued Hospital, Clinic, or Other Facility Administered Medication Ordered Dose Route Frequency Start Date End Date Status ipratropium-albutero l (Duo-Neb) 0.5-2.5 mg/3 mL nebulizer solution 3 mgIndications:Respir atory distress,Pneumonia of both lungs due to infectious organism, unspecified part of lung 3 mg NEBULIZATION Once 03/29/2025 03/29/2025 Ended predniSONE (Deltasone) tablet 60 mgIndications:Respir atory distress,Pneumonia of both lungs due to infectious organism, unspecified part of lung 60 mg PO Once 03/29/2025 03/29/2025 Ended Active Problems Problem Noted Date Diagnosed Date CAD (coronary artery disease) 12/30/2024 CORIE (obstructive sleep apnea) 12/29/2024 Severe obesity (BMI 35.0-39.9) with comorbidity ([facility]/HCC) 12/29/2024 Hypercholesteremia 12/29/2024 Neck pain 12/29/2024 Long-term current use of opiate analgesic 2024 Cervical radiculopathy 04/04/2024 Degenerative disc disease, cervical 04/04/2024 COPD (chronic obstructive pulmonary disease) 10/202203/03/2023 Achalasia 03/03/2023 03/03/2023 Disease due to severe acute respiratory syndrome coronavirus 2 (SARS-CoV-2) 11/07/2022 Overview (12/29/2024): Problem added by Discern Expert Adrenal mass 03/09/2020 Atherosclerosis of ty[place] co ronary artery of ty[place] heart without angina pectoris 07/26/2018 Gastrocnemius tendon rupture 07/26/2018 Bilateral recurrent inguinal hernia 02/12/2015 Controlled type 2 diabetes with neuropathy 05/27 Headache 05/27/2011 Tobacco dependence syndrome 05/27/2011 Hypertension 12/20/2010 Depressive disorder 11/20/2010 Anxiety state 04/05/2010 Encounters Date Type Department Care Team Description 03/29/2025 2:20 PM EST Office Visit [facility] [address] [place] [address] Tamara Wick MD Respiratory distress (Primary Dx); Pneumonia of both lungs due to infectious organism, unspecified part of lung 03/29/2025 Orders Only [facility] External Provider, [facility] 03/29/2025 Telephone [facility] [address] [place] [phone] Candy Klein RN 03/29/2025 Travel 03/05/2025 Refill [facility] [address] [place] [address] Gonzales Brennan MD Type 2 diabetes mellitus with hyperglycemia, without long-term current use of insulin (HCC) 02/14/2025 9:00 AM EDT Clinical Support [facility] [address] [place] [address] Marisol Thomas RN Back pain, unspecified back location, unspecified back pain laterality, unspecified chronicity (Primary Dx) 02/14/2025 Travel 01/25/2025 9:00 AM EDT Office Visit [facility] [address] [place] [address] Gonzales Brennan MD Primary hypertension (Primary Dx); Controlled type 2 diabetes with neuropathy (HCC); Dietary counseling; Exercise counseling; Class 1 obesity due to excess calories with serious comorbidity and body mass index (BMI) of 32.0 to 32.9 in adult; Encounter for immunization; Encounter for vaccination; Essential hypertension; Neck pain 01/25/2025 Refill [facility] [address] [place] [address] Luann Adrian MD Back pain, unspecified back location, unspecified back pain laterality, unspecified chronicity; Chronic midline low back pain without sciatica 01/25/2025 Travel 01/16/2025 9:30 AM EDT Clinical Support [facility] [address] [place] [address] Haley Guillen RN Primary hypertension 01/16/2025 Travel 01/11/2025 Telephone [facility] [address] [place], [place] [phone] Luann Adrian MD MRI CERVICAL SPINE DENIED 01/09/2025 9:00 AM EDT Office Visit [facility] [address] [place] [address] Louis Brennan Dental caries (Primary Dx); Dental calculus; Removable partial denture with loss of retention 01/02/2025 10:15 AM EDT Office Visit [facility] [address] [place] [address] Gonzales Brennan MD Type 2 diabetes mellitus without complication, without long-term current use of insulin ([facility]); Essential hypertension 01/02/2025 Travel 12/30/2024 9:00 AM EDT Office Visit [facility] [address] [place] [address] Diaz Merida DMD Secondary dental caries associated with failed or defective dental hindu (Primary Dx) 12/30/2024 Telephone [facility] [address] [place] [address] Gonzales Brennan MD chart prep 12/29/2024 10:45 AM EDT Office Visit [facility] [address] [place] [address] Luann Adrian MD NATHANIEL (acute kidney injury) ([facility]) (Primary Dx); Essential hypertension; Back pain, unspecified back location, unspecified back pain laterality, unspecified chronicity; Chronic midline low back pain without sciatica; Atherosclerosis of [place] coronary artery of [place] heart without angina pectoris; Controlled type 2 diabetes with neuropathy ([facility]); Neck pain 12/29/2024 Travel from Last 3 Months Immunizations Immunization Administration [...] (203 lb) 03/29/2025 2:37 PM EST Height 174 cm (5' 8.5 ) 01/25/2025 9:02 AM EDT Body Mass Index 30.42 01/25/2025 9:02 AM EDT Plan of Treatment Upcoming Encounters Date Type Department Care Team (Late st Contact Info) Description 05/30/2025 9:00 AM EST Clinical Support [facility] [address] [place] [address] Marisol Thomas, RN [address] [place] [address] 07/10/2025 8:00 AM EDT Office Visit [facility] [address] [place] [address] Louis Brennan Health Maintenance Due Date Last Done Comments CT Colonography 1955 FIT DNA/Cologuard 1955 FIT 1955 FOBT 1955 Sigmoidoscopy 1955 Diabetes: Foot Exam 1964 Lung Cancer Screening 2004 RSV Patients and Patients Aged 60 years or older (1 - Risk 50-74 years 1-dose series) 2004 Eye Exam 12/01/2024 Diabetes: Urine Protein Screening 02/25/2025 02/26/2024, 06/10/2021, 02/19/2021 Dental X-Ray: Bitewings 03/30/2025 03/29/2024, 05/01 Diabetes: Hemoglobin A1C 07/02/2025 025, 10/24/2024, 11/23/2023, Additional history exists Dental Oral Exam 07/10/2025 01/09/2025, 06/2023, 11/19/2018, Additional history exists Dental Prophylaxis 07/10/2025 01/09/2025, 1 05/08/2023, 12/06/2018, Additional history exists COVID-19 Vaccine ( - season) 2025 01/25/2025, 02/12/2021, 07/25/2020, Additional history [...] on patient's age to complete this topic Goals Goal Patient Goal Type Associated Problems [...] Patient has chronic kidney disease No Tamara Wikc MD Weekly blood pressure task Care Plan [...] chronic kidney disease No Candy Klein RN Procedures Procedure Name Priority Date/Time Associated Diagnosis Comments XR CHEST 1 VIEW Routine 03/29/2025 3:43 PM EST NT-PROBNP Routine 03/29/2025 3:42 PM EST HIGH SENSITIVITY TROPONIN I Routine 03/29/2025 3:42 PM EST LACTIC ACID Routine 03/29/2025 3:42 PM EST COMPREHENSIVE METABOLIC PANEL Routine 03/29/2025 3:42 PM EST CBC WITH AUTO DIFFERENTIAL Routine 03/29/2025 3:42 PM EST Degenerative disc disease, cervical SARS COV2/INFLUENZA A/B AND RSV RNA QL NAAT Routine 03/29/2025 3:42 PM EST STREP A NUCLEIC ACID Routine 03/29/2025 3:42 PM EST POCT INFLUENZA B Routine 03/29/2025 3:05 PM EST Respiratory distress Pneumonia of both lungs due to infectious organism, unspecified part of lung POCT INFLUENZA A Routine 03/29/2025 3:05 PM EST Respiratory distress Pneumonia of both lungs due to infectious organism, unspecified part of lung POCT RAPID COVID ANTIGEN Routine 03/29/2025 3:05 PM EST Respiratory distress Pneumonia of both lungs due to infectious organism, unspecified part of lung POCT LUZMA-14 URINE DRUG SCREEN Routine 02/14/2025 [...] complication, without long-term current use of insulin ([facility]) POCT GLUCOSE Routine 01/02/2025 10:30 AM EDT Type 2 diabetes mellitus without complication, without long-term current use of insulin ([facility]) CASE PRESENTATION, DETAILED AND EXTENSIVE TREATMENT PLANNING Routine 12/30/2024 9:00 AM EDT Secondary dental caries associated with failed or defective dental hindu 27 MIDFL RESIN-BASED COMPOSITE - 4 OR MORE SURFACES (ANTERIOR) Routine 12/30/2024 9:00 AM EDT Secondary dental caries associated with failed or defective dental hindu BASIC METABOLIC PANEL Routine 12/30/2024 8:16 AM EDT NATHANIEL (acute kidney injury) (CMS/HCC) LIPID PANEL, STANDARD Routine 10/24/2024 2:17 PM [...] Recently Relevant to Health Maintenance Results * XR Chest 1 View (03/29/2025 3:43 PM EST) Anatomical Region Laterality Modality Chest Radiographic Dahlia ging 03/29/2025 3:43 PM EST Narrative 03/29/2025 3:55 PM EST [place] [address] XRay Report Signed Patient: Sean Hinkle MR#: [id number] 2 : 1955 Acct:[id number] Age/Sex: 69 / M ADM Date: 03/29/25 Loc: HO.ED Attending Dr: Ordering Physician: Darryn Hernandez Date of Service: 03/29/25 Procedure(s): XR chest 1V Accession Number(s): [id number] cc: Darryn Hernandez; Gonzales Brennan MD Reason [...] 03/29/25 1552 DD/ 1543 TD/TT: 03/29/25 1548 Outside Residential Sales Professional: Procedure Note Donotuseinterpreter, Image - 03/29/2025 [place] [address] XRay Report Signed Patient: Sean HinkleMR#: [id number] 2 : 5Acct:[id number] Age/Sex: 69 / MADM Date: 03/29/25 Loc: HO.ED Attending Dr: Ordering Physician: Darryn Hernandez Date of Service: 03/29/25 Procedure(s): XR chest 1V Accession Number(s): [id number] cc: Darryn Hernandez; Gonzales Brennan MD Reason [...] 03/29/25 1552 DD/ 1543 TD/TT: 03/29/25 1548 Outside Residential Sales Professional: [facility] External Provider IMG XR PROCEDURES Final Result * Strep A Nucleic Acid (03/29/2025 3:42 PM EST) IDNOW SERIAL# [id number] [facility] Strep A Nucleic Acid Negative Negative [facility] Comment:All test results mus t [...] GENERAL ORDERABLES Final Result Performing Organization Address [facility] Co de Phone Number [facility] [address] [place] [phone] * High Sensitivity Troponin I (03/29/2025 3:42 PM EST) TROPONIN I HIGH SENSITIVITY 4.8 <3.5 - 35.0 ng/L [facility] Comment:The Rosario high sens itivity Troponin-I results should beused in conjunction with other diagnostic information suchas ECG, clinical observations and information, and patientsymptoms to aid in the diagnosis of DE. 03/29/2025 3:42 PM EST 03/29/2025 3:48 PM EST Generic External Data Provider LAB BLOOD ORDERAB LES Final Result Performing Organization Address [facility] Co de Phone Number [facility] [address] [place] [phone] * SARS-CoV-2 RNA, Influenza A/B, and RSV RNA, Ql NAAT (03/29/2025 3:42 PM EST) Influenza A PCR NEGATIVE Negative [facility] Influenza B PCR NEGATIVE Negative [facility] Resp Syncy Virus RNA Qual PCR NEGATIVE Negative [facility] SARS COV2 PCR NEGATIVE Negative [facility] Comment:All test results mus t [...] use by authorized laboratories.Testing performed on the [employer] GeneXpert utilizingreal-time RT-PCR.All SARS CoV2 and positive influenza A/B results arereported to [facility]. 03/29/2025 3:42 PM EST 03/29/2025 3:48 PM EST us Generic External Data Provider LAB MICROBIOLOGY - GENERAL ORDERABLES Final Result [facility] [address] [place] [phone] * (ABNORMAL) NT-proBNP (03/29/2025 3:42 PM EST) NT-proBNP 484.8(H) <300 pg/mL [facility] Comment:Reference Range:Age Group (years) NT-proBNP (pg/ml) InterpretationAll <300 Negative: HF unlikelyFor patients presenting to the ED with clinical suspicion ofnew onset or worsening HF, see below:18 to <50 >299.9 to <450.0 Grayzone: [id number] to 75 >299.9 to <900.0 other causes of>75 >299.9 to <1800.0 NT-proBNP to <50 >449.9 Positive: HF [id number] >899.9>75 >1799.9Note: Elevated NT-proBNP levels should be interpreted inthe context of other clinical information. 03/29/2025 3:42 PM EST 03/29/2025 3:48 PM EST us Generic External Data Provider LAB BLOOD ORDERAB LES Final Result [facility] [address] [place] [phone] [phone] * (ABNORMAL) CBC auto differential (03/29/2025 3:42 PM EST) White Blood Count 10.3 4.8 - 10.8 X10*3/uL [facility] Red Blood Count 4.92 4.60 - 5.80 X10*6/uL [facility] Hemoglobin 14.7 14.0 - 18.0 g/dl [facility] Hematocrit 43.2 42.0 - 52.0 % [facility] Mean Corpuscular Volume 87.8 80.0 - 98.0 fL [facility] Mean Corpuscular Hemoglobin 29.9 27.0 - 33.0 pg [facility] Mean Corpuscular HGB Conc 34.0 31.0 - 36.0 g/dl [facility] Red Cell Distribution Width 12.8 11.0 - 16.0 % [facility] Platelet Count 187 160 - 400 X10*3/uL [facility] Mean Platelet Volume 9.2(L) 9.4 - 12.4 fL [facility] Neutrophils Percent Auto 72.1 45 - 73 % [facility] Imm Gran Pct Auto 0.4 0.0 - 0.4 % [facility] Lymphocytes Percent Auto 18.9(L) 20 - 40 % [facility] Monocytes Percent Auto 7.3 2 - 11 % [facility] Eosinophils Percent Auto 0.9 0 - 4 % [facility] Basophils Percent Auto 0.4 0 - 2 % [facility] NRBC Pct Auto 0.0 0.0 - 0.2 /100WBC [facility] Neutrophils Absolute Auto 7.4 2.0 - 8.3 x10*3/uL [facility] Imm Gran Abs Auto 0.04(H) 0.00 - 0.03 X10*3/uL [facility] Lymphocytes Absolute Auto 1.9 1.2 - 4.9 X10*3/uL [facility] Monocytes Absolute Auto 0.8 0.1 - 1.2 X10*3/uL [facility] Eosinophils Absolute Auto 0.1 0.0 - 0.4 X10*3/uL [facility] Basophils Absolute Auto 0.0 0.0 - 0.2 X10*3/uL [facility] NRBC Abs Auto 0.000 0.0 - 0.012 X10*3/uL [facility] 03/29/2025 3:42 PM EST 03/29/2025 3:48 PM EST Generic External Data Provider LAB BLOOD ORDERAB LES Final Result Performing Organization Address [facility] Co de Phone Number [facility] [address] [place] [phone] * Lactic Acid (03/29/2025 3:42 PM EST) [facility] Lactic Acid 1.8 0.5 - 2.0 mmol/L [facility] 03/29/2025 3:42 PM EST 03/29/2025 3:48 PM EST [employer] External Data Provider LAB BLOOD ORDERAB LES Final Result Performing Organization Address [facility] Co de Phone Number [facility] [address] [place] [phone] * (ABNORMAL) Comprehensive Metabolic Panel (03/29/2025 3:42 PM EST) Pathologist [facility] Sodium 141 135 - 145 mmol/L [facility] Potassium 4.4 3.3 - 5.1 mmol/L [facility] Chloride 107 96 - 108 mmol/L [facility] Carbon Dioxide 25 22 - 29 mmol/L [facility] Anion Gap 13 12 - 20 [facility] Urea Nitrogen (BUN) 18(H) 9 - 16 mg/dL [facility] Creatinine, Serum 1.01 0.5 - 1.4 mg/dL [facility] Creatinine Clr Calc Pharmacy 73.6 [facility] Comment:eGFR (calculated fro m the MDRD study equation) and eCrCl(calculated from the Cockcroft-Gault equation) are based ondifferent parameters and may not yield comparable results.If eCrCl result is absurd, please check patient'sheight/weight. Estimated Glomerular Filt Rate >60 [facility] Comment:Chronic Kidney Disea se: Estimated GFR < 60 mL/min/1.00a4Xlxyiy Kidney Disease: Estimated GFR < 15 mL/min/1.73m2 Glucose 123(H) 60 - 115 mg/dL [facility] Calcium 9.8 8.4 - 10.2 mg/dL [facility] Bilirubin, Total 0.2 0.0 - 1.0 mg/dL [facility] Aspartate Amino Transferase 29 5 - 37 U/L [facility] Alanine Aminotransferase 34 0 - 40 U/L [facility] Total Protein 7.7 6.5 - 8.0 g/dL [facility] Albumin Level 4.0 3.5 - 5.0 g/dL [facility] Alkaline Phosphatase 93 39 - 117 U/L [facility] 03/29/2025 3:42 PM EST 03/29/2025 3:48 PM EST us Generic External Data Provider LAB BLOOD ORDERAB LES Final Result [facility] [address] [place] [phone] * POCT Rapid Covid-19 BinaxNOW (03/29/2025 3:05 PM EST) Rapid COVID Ag Negative Swab 03/29/2025 3:05 PM EST Tamara Wick MD POINT OF CARE TEST ENTER/EDIT OR DERABLES Final Result * POCT Rapid Influenza B OSOM (03/29/2025 3:05 PM EST) Rapid Influenza B Ag Negative Negative, Indeterminate Swab 03/29/2025 3:05 PM EST Result [facility] Tamara Wick MD POINT OF CARE TEST ENTER/EDIT OR DERABLES Final Result * POCT Rapid Influenza A OSOM (03/29/2025 3:05 PM EST) Pathologist [facility] Rapid Influenza A Ag Negative Negative, Indeterminate Swab Nasopharyngeal structure / Unknown 03/29/2025 3:05 PM EST Result [facility] Tamara Wick MD POINT OF CARE TEST ENTER/EDIT OR DERABLES Final Result * POCT LUZMA-14 Urine Drug Screen (02/14/2025 9:36 AM EDT) Pathologist [facility] THC Negative Negative Cocaine Screen, Urine Negative [...] AM EDT . Internal Pass Control Lot# [id number] Exp: 02-24-26 Gonzales Brennan MD POINT OF CARE TEST ENTER/ED IT ORDERABLES Final Result * (ABNORMAL) POCT Hgb A1c (01/02/2025 10:31 AM EDT) Pathologist [facility] Hemoglobin A1C 6.4(A) 4.0 - 5.7 % QC Media Lot # [id number] Lot# Expiration Date Blood 01/02/2025 10:3 1 AM EDT Gonzales Brennan MD POINT OF CARE TEST ENTER/ED IT ORDERABLES Final Result * (ABNORMAL) POCT Glucose (01/02/2025 10:30 AM EDT) Pathologist [facility] Glucose Blood, POC 206(A) 60 - 200 mg/dL QC Media Lot # [id number] Comment:random Lot# Expiration Date Blood Capillary blood specimen / Unknown 01/02/2025 10:30 AM EDT Gonzales Brennan MD POINT OF CARE TEST ENTER/ED IT ORDERABLES Final Result * (ABNORMAL) Basic Metabolic Panel (12/30/2024 8:16 AM EDT) [facility] Sodium 141 135 - 145 mmol/L [facility] Potassium 3.7 3.3 - 5.1 mmol/L [facility] Chloride 104 96 - 108 mmol/L [facility] Carbon Dioxide 28 22 - 29 mmol/L [facility] Anion Gap 13 12 - 20 [facility] Urea Nitrogen (BUN) 17(H) 9 - 16 mg/dL [facility] Creatinine, Serum 1.14 0.5 - 1.4 mg/dL [facility] Estimated Glomerular Filt Rate >60 [facility] Comment:Chronic Kidney Disea se: Estimated GFR < 60 mL/min/[id number] Kidney Disease: Estimated GFR < 15 mL/min/1.73m2 Glucose 118(H) 60 - 115 mg/dL [facility] Calcium 9.0 8.4 - 10.2 mg/dL [facility] Blood Venous blood specimen / Unknown 12/30/2024 8:16 AM EDT 12/30/2024 11:47 AM EDT us Luann Adrian MD LAB BLOOD ORDERABLES Final Re sult Performing Organization Address [facility]/ZIP Co de Phone Number [facility] [address] [place] [phone] * (ABNORMAL) Lipid Panel, Standard (10/24/2024 2:17 PM EDT) Triglycerides 190(H) <150 mg/dL [facility] Comment:Desirable Triglyceri de: less than 150 mg/dLBorderline High Triglyceride 150-199 mg/dLHigh Triglyceride: 200-499 mg/dLVery High Triglyceride: greater than or equal to 5OO mg/dL Cholesterol 139 <200 mg/dL [facility] Comment:Desirable Cholestero l: less than 200 mg/dLBorderline High Cholesterol: 200-239 mg/dLHigh Cholesterol: greater than 239 mg/dL LDL Cholesterol Calculated 68 <100 mg/dL [facility] Comment:Desirable LDL: less than 100 mg/dLNear Optimal/Above Optimal LDL: 110- 129 mg/dLBorderline High LDL: 130-159 mg/dLHigh LDL: 160-189 mg/dLVery High LDL: greater than or equal to 190 mg/dL HDL Cholesterol 33(L) >40 mg/dL [facility] Comment:Desirable HDL: great er than 40 mg/dL Note: This HDL assay may give artificially low results in patients with liver disease. Blood Venous blood specimen / Unknown 10/24/2024 2:17 PM EDT 10/24/2024 2:17 PM EDT us Gonzales Brennan MD LAB BLOOD ORDERABLES Final Result Performing Organization Address [facility]/ZIP Co de Phone Number [facility] [address] [place] [phone] * (ABNORMAL) Albumin, Random Urine W/Creatinine (02/26/2024 2:00 PM EDT) Creatinine, Urine 122.05 mg/dL [facility] Microalbumin Urine 1,421.0 mg/L H [facility] Microalbum Creatinine Ratio Ur 1,164.2(H ) <30 ug/mg cr [facility] Comment:Albumin/Creatinine R atio Reference Ranges: Normal: < 30 ug/mg creatinine Microalbuminuria: 30 - 300 ug/mg creatinineClinical Albuminuria: > 300 ug/mg creatinine Urine (Urine, Random) 02/26/2024 2:00 PM EDT 02/26/2024 5:55 PM EDT Gonzales Brennan MD LAB URINE ORDERABLES Final Result Performing Organization Address [facility] Co de Phone Number [facility] [address] [place] [address] [phone] * Colonoscopy (02/06/2023) Anatomical Region Laterality Modality Endoscopy Narrative 02/06/2023 3 polyps Gonzales Brennan MD ENDOSCOPY PROCEDURE ORDERAB LES Final Result * HEPATITIS C AB W/REFL TO HCV RNA, QN, PCR (06/10/2021 11:50 AM EST) HEPATITIS C ANTIBODY NON-REACT ALEXX NON-REACT ALEXX [facility] INDEX 0.23 <1.00 [facility] Comment: HCV antibody was non-reactive. There is no laboratory evidence of HCV infection. In most cases, no further action is required. However, if recent HCV exposure is suspected, a test for HCV RNA (test code 32519) is suggested. For additional information please refer to http://education.Last Second Tickets.Deluux/faq/QJD74c7 (This link is being provided for informational/ educational purposes only.) 06/10/2021 11:5 0 AM EST Gonzales Brennan MD HISTORICAL/NON ORDERABLE LA BS Final Result Performing Organization Address City/[facility]/ZIP Co de Phone Number [facility] [address] [place] [address], from Last 3 Months or Most Recently Relevant to Health Maintenance Additional Health Concerns Active Problems Noted Date [...] 03/29/2025 Patient has chronic kidney disease 03/29/2025 Insurance [employer] MEDICARE REPLACEMENT DENTAL - HSN FULL (MEDICAID) Care Teams Gravity Meter Observer Relationship Specialty Start Date End Date Gonzales Brennan MD [address] [place] [phone] PCP - General Internal Medicine 04/27/18
--- OUTSIDE RECORDS SUMMARY | 2025-03-29 18:43 | XMS_ITS | Encounter Summary ---
Author Organization [employer] Address [address] [facility] 7t [place] [address] Care Team Providers Care Fence Erector Name Role Phone Gonzales Brennan MD Primary Care Provider [phone]- [phone] Reason for Visit * Reason Onset Date Comments Referral 02/23/2024 Encounter Details Date Type Department Care Team ([facility] st Contact Info) Description 02/23/2024 Telephone [facility] MEDICINE [address] [place] [address] Gonzales Brennan MD [address] [place] [address] Referral Social History Tobacco Use Types Packs/Day [...] 12:37 PM) CC looked up patient on [facility] portal. Patient CT scan pictures are visible, but unable to save and scan on patient's chart. CC will send a request to [facility] to send any CT scans reports made, [...] pt. States he had it done at [facility]. I also informed pt. That PCP ordered [...] (ACR) . Roseanna (KEMAR) [employer] [phone] documented in this encounter Plan of Treatment Upcoming Encounters Date Type Department Care Team (Late st Contact Info) Description 05/30/2025 9:00 AM EST Clinical Support [facility] MED & PEDS [address] [place] [address] Marisol Thomas RN [address] [place] [address] 07/10/2025 8:00 AM EDT Office Visit [facility] ADULT DENTAL [address] [place] [address] Louis Brennan documented as of this encounter Visit Diagnoses Not on filedocumented in this encounter Additional Health Concerns Assessment Noted Time PHQ-9 Depression Total Score: 0 07/11/19 23 3:46 PM EDT documented as of this encounter Care Teams Fence Erector Relationship Specialty Start Date End Date Gonzales Brennan MD [address] [place] [address] PCP - General Internal Medicine 04/27/18 documented as of this encounter
--- OUTSIDE RECORDS SUMMARY | 2025-03-29 18:43 | XMS_ITS | Encounter Summary ---
Author Organization [employer] [facility] Address [address] [place] [address] 7 [place] [address] Care Team Providers Care Engraver Ornamental Design Name Role Phone Gonzales Brennan MD Primary Care Provider +1 [phone] Encounter Details Date Type Department Care Team (Latest Contact Info) Description 12/03/2018 Abstract [facility] Dental, Provider, DDS Social History [...] 05/30/2025 9:00 AM EST Clinical Support [facility] MED & PEDS [address] [place] [address] Marisol Thomas, RN [address] [place] [address] 07/10/2025 8:00 AM EDT Office Visit [facility] ADULT DENTAL [address] [place] [address] Louis Brennan documented as of this encounter Visit Diagnoses Not on filedocumented in this encounter Care Teams Engraver Ornamental Design Relationship Specialty Start Date End Date Gonzales Brennan MD [address] [place] [address] PCP - General Internal Medicine 04/27/18 documented as of this encounter
--- OUTSIDE RECORDS SUMMARY | 2025-03-29 18:43 | XMS_ITS | Encounter Summary ---
Author Organization [employer] Address [address] [facility] 7t [place] [address] Care Team Providers Care Staff Development Coordinator Rn Name Role Phone Gonzales Brennan MD Primary Care Provider +1 [phone] Encounter Details Date Type Department Care Team ([facility] Contact Info) Description 08/22/2022 Orders Only [facility] MED & PEDS [address] [place] [address] Cinthia Rodas LPN Social History Tobacco Use [...] Encounters Date Type Department Care Team ([facility] Contact Info) Description 05/30/2025 9:00 AM EST Clinical Support [facility] MED & PEDS [address] [place] [address] Marisol Thomas, RN [address] [place] [address] 07/10/2025 8:00 AM EDT Office Visit [facility] ADULT DENTAL [address] [place] [address] Louis Brennan documented as of this encounter Visit Diagnoses Not on filedocumented in this encounter Additional Health Concerns Assessment Noted Time PHQ-9 Depression Total Score: 0 07/11/19 23 3:46 PM EDT documented as of this encounter Care Teams Staff Development Coordinator Rn Relationship Specialty Start Date End Date Gonzales Brennan MD [address] [place] [address] PCP - General Internal Medicine 04/27/18 documented as of this encounter
--- OUTSIDE RECORDS SUMMARY | 2025-03-29 18:43 | XMS_ITS | Encounter Summary ---
Author Organization [employer] Address [address] [place] [address] 7 [place] [address] Care Team Providers Care Changeover Operator Name Role Phone Gonzales Brennan MD Primary Care Provider [phone]- [phone] Reason for Visit * Reason Comments Med Refill Encounter Details Date Type Department Care Team (Late Contact Info) Description 05/19/2022 Refill [facility] MEDICINE [address] [place], [place] [phone] Gonzales Brennan MD [address] [place], [place] [phone] Chronic midline low back pain without sciatica [...] [facility] [address] [place] [address] Marisol Thomas, LEVI [address] [place], [place] [phone] 07/10/2025 8:00 AM EDT Office Visit [facility] ADULT DENTAL [address] [place] [address] Louis Brennan documented as of this encounter Visit Diagnoses Diagnosis Chronic midline low back pain without sciatica documented in this encounter Care Teams Changeover Operator Relationship Specialty Start Date End Date Gonzales Brennan MD [address] [place] [phone] PCP - General Internal Medicine 04/27/18 documented as of this encounter
--- OUTSIDE RECORDS SUMMARY | 2025-03-29 18:43 | XMS_ITS | Encounter Summary ---
Author Organization [employer] Address [address] [facility] 7t [place] [address] Care Team Providers Care Aeronautical Inspector Name Role Phone Gonzales Brennan MD Primary Care Provider +1 [phone] Encounter Details Date Type Department Care Team ([facility] st Contact Info) Description 02/24/2024 Orders Only [facility] MED & PEDS [address] [place], [place] [phone] Gonzales Brennan MD [address] [place], [place] [phone] Controlled type 2 diabetes with neuropathy (CMS/HCC) [...] 9:00 AM EST Clinical Support [facility] MED & PEDS [address] [place] [address] Marisol Thomas RN [address] [place] [address] 07/10/2025 8:00 AM EDT Office Visit [facility] ADULT DENTAL [address] [place] [address] Louis Brennan documented as of this encounter Procedures Procedure Name Priority Date/Time Associated Diagnosis Comments ALBUMIN, RANDOM URINE W/CREATININE Routine 02/26/2024 2:00 PM EDT Controlled type 2 diabetes with neuropathy ([facility]/HCC) documented in this encounter Results * (ABNORMAL) Albumin, Random Urine W/Creatinine (02/26/2024 2:00 PM EDT) Creatinine, Urine 122.05 mg/dL [facility] Microalbumin Urine 1,421.0 mg/L H [facility] Microalbum Creatinine Ratio Ur 1,164.2(H ) <30 ug/mg cr [facility] Comment:Albumin/Creatinine R atio Reference Ranges: Normal: < 30 ug/mg creatinine Microalbuminuria: 30 - 300 ug/mg creatinineClinical Albuminuria: > 300 ug/mg creatinine Urine (Urine, Random) 02/26/2024 2:00 PM EDT 02/26/2024 5:55 PM EDT us Gonzales Brennan MD LAB URINE ORDERABLES Final Result [facility] [address] [place] [address] [phone] documented in this encounter Visit Diagnoses Diagnosis Controlled type 2 diabetes with neuropathy (HCC)- Primary Type II or unspecified type diabetes mellitus with neurological manifestations, not stated as uncontrolled documented in this encounter Additional Health Concerns Assessment Noted Time PHQ-9 Depression Total Score: 0 07/11/19 23 3:46 PM EDT documented as of this encounter Care Teams Aeronautical Inspector Relationship Specialty Start Date End Date Gonzales Brennan MD [address] [place] [address] PCP - General Internal Medicine 04/27/18 documented as of this encounter
--- OUTSIDE RECORDS SUMMARY | 2025-03-29 18:43 | XMS_ITS | Encounter Summary ---
Author Organization [employer] Address [address] [facility] 7t [place] [address] Care Team Providers Care Security Professional Name Role Phone Gonzales Brennan MD Primary Care Provider +1 [phone] Encounter Details Date Type Department Care Team (Late st Contact Info) Description 01/04/2024 Orders Only [facility] MED & PEDS [address] [place], [place] [phone] Gonzales Brennan MD [address] [place], [place] [phone] Essential hypertension (Primary Dx) Social History Tobacco [...] [facility] - [facility] [address] [place] [address] Marisol Thomas, RN [address] [place] [address] 07/10/2025 8:00 AM EDT Office Visit [facility] ADULT D[facility]AL [address] [place] [address] Louis Brennan documented as of this encounter Procedures Procedure Name Priority Date/Time Associated Diagnosis Comments URINALYSIS, COMPLETE Routine 01/21/2024 10:50 AM EDT Essential hypertension BASIC METABOLIC PANEL Routine 01/21/2024 10:44 AM EDT Essential hypertension documented in this encounter Results * (ABNORMAL) Urinalysis Complete (01/21/2024 10:50 AM EDT) Color Urine Yellow [facility] Appearance Urine Clear [facility] PH 5.5 5.0 - 9.0 [facility] Glucose Urine UA Negative Negative mg/dL [facility] Urine Blood Negative Negative [facility] Specific [place] - Urine 1.025 1.005 - 1.025 [facility] Urine Protein 300 (3+)(A) Neg-Trace mg/dL [facility] Urine Ketones Negative Negative mg/dL [facility] Nitrite Urine Negative Negative [facility] Leukocyte Esterase Urine Negative Negative [facility] RBC Urine 0-2 0 - 2 /HPF [facility] Urine WBC 0-5 0 - 5 /HPF [facility] Urine Squamous Epithelial Cell 0-2 0 - 2 /HPF [facility] Urine Bacteria None Seen None Seen [facility] Hyaline Casts, Urine 0-2 0 - 2 /LPF [facility] Urine (Urine, Random) 01/21/2024 10:50 AM EDT 01/21/2024 2:10 PM EDT us Gonzales Brennan MD LAB URINE ORDERABLES Final Result [facility] [address] [place] [address] [phone] * (ABNORMAL) Basic Metabolic Panel (01/21/2024 10:44 AM EDT) Sodium 142 135 - 145 mmol/L [facility] Potassium 4.3 3.3 - 5.1 mmol/L [facility] Chloride 107 96 - 108 mmol/L [facility] Carbon Dioxide 27 22 - 29 mmol/L [facility] Anion Gap 12 12 - 20 [facility] Urea Nitrogen (BUN) 18(H) 9 - 16 mg/dL [facility] Creatinine, Serum 1.03 0.5 - 1.4 mg/dL [facility] Estimated Glomerular Filt Rate >60 [facility] Comment:NOTE: For -Am erican individuals, multiply the result by 1.210.Chronic Kidney Disease: Estimated GFR < 60 mL/min/[id number] Kidney Disease: Estimated GFR < 15 mL/min/1.73m2 Glucose 105 60 - 115 mg/dL [facility] Calcium 9.5 8.4 - 10.2 mg/dL [facility] Blood Venous blood specimen / Unknown 01/21/2024 10:44 AM EDT 01/21/2024 2:13 PM EDT Gonzales Brennan MD LAB BLOOD ORDERABLES Final Result [facility] [address] [place] [address] [phone] documented in this encounter Visit Diagnoses Diagnosis Essential hypertension- Primary Unspecified essential hypertension documented in this encounter Additional Health Concerns Assessment Noted Time PHQ-9 Depression Total Score: 0 07/11/19 23 3:46 PM EDT documented as of this encounter Care Teams Security Professional Relationship Specialty Start Date End Date Gonzales Brennan MD [address] [place] [phone] PCP - General Internal Medicine 04/27/18 documented as of this encounter
[2025-03-29 18:53] LABS: Troponin-I High Sensitivity < 2.7 ng/L (<3.5-35.0)
--- NOTE | 2025-03-29 19:30 | PC.NURSE ---
Assumed care of pt, presented to ED c/o SOB and weakness with a productive cough x1 weeks, pt is being admitted for COPD excarbation, aaox4, nad, 2L NC which is his baseline at home, 20g R forearm
[2025-03-29 20:02] LABS: Glucose, Whole Blood 195 mg/dL (60-115)
--- NOTE | 2025-03-29 20:40 | PHA.MEDREC ---
Pharmacy Consult ? Medication Reconciliation Pharmacy has completed the medication reconciliation. Spoke to patient to confirm medication list.
[2025-03-29] MEDS: Aspirin Enteric Coated 81 MG TABLET.DR PO (22:35)
[2025-03-30] VITALS (8 sets, daily range): BP systolic 114–144; BP diastolic 59–82; PULSE 58–90; RESP 16–22; TEMP 36.4–36.9; O2SAT 92–95
--- NOTE | 2025-03-30 00:31 | HO.NURTONUR ---
69-year-old male history of COPD not in any supplemental oxygen, type 2 DM, hyperthyroidism, HLD, CAD, BPH came in today for 1 week of cough with clear sputum and difficulty breathing, patient also is complaining of bilateral lower extremity swelling and edema, require 3 pillows to sleep at night otherwise +PND. Patient walked in today for evaluation of the shortness of breath and cough patient was 85% O2 on room air., Pt is being admitting for COPD, NAD, on 2L NC,
[2025-03-30 04:40] LABS: Hematocrit 42.2 % (42.0-52.0); Hemoglobin 13.6 g/dl (14.0-18.0); Mean Corpuscular HGB Conc 32.2 g/dl (31.0-36.0); Mean Corpuscular Hemoglobin 28.6 pg (27.0-33.0); Mean Corpuscular Volume 88.8 fL (80.0-98.0); NRBC Abs Auto 0.000 X10*3/uL (0.0-0.012); NRBC Pct Auto 0.0 /100WBC (0.0-0.2); Platelet Count 200 X10*3/uL (160-400); Red Blood Count 4.75 X10*6/uL (4.60-5.80); White Blood Count 9.0 X10*3/uL (4.8-10.8)
[2025-03-30 04:55] LABS: Anion Gap 18 (12-20); Blood Urea Nitrogen 25 mg/dL (9-16); Calcium 9.5 mg/dL (8.4-10.2); Carbon Dioxide 21 mmol/L (22-29); Chloride 103 mmol/L (96-108); Creatinine Clr Calc Pharmacy 62.4; Estimated Glomerular Filt Rate > 60; Magnesium 1.9 mg/dL (1.6-2.6); Potassium 4.5 mmol/L (3.3-5.1); Sodium 137 mmol/L (135-145)
--- NOTE | 2025-03-30 07:00 | CA_ITS ---
Transthoracic Echocardiogram Patient (Last, First, Middle): Sean Hinkle, Gender: Male Date of : 1955 Age: 69 Procedure Date: 03/30/2025 Procedure Type: Transthoracic Echocardiogram Location: ER Height: 170. cm Weight: 92.08 kg BSA: 2.03 m2 Heart Rate: bpm BP: 135 / 82 mmHg Fisher Troll Line: JANETH Referring MD: Ab Collins MD Symptoms: chf Study Quality: Adequate ECG Rhythm: Sinus Conclusions: - The left ventricular systolic function is normal. The calculated ejection fraction is 63% by biplane method. - No obvious valvular pathology seen on this study. Findings Left Ventricle Normal left ventricular cavity size. There is mildly increased left ventricular wall thickness. The left ventricular systolic function is normal. The calculated ejection fraction is 63% by biplane method. There is no evidence of regional wall motion abnormalities. Diastolic function is normal for age. Right Ventricle Mildly increased right ventricular cavity size. There is normal right ventricular systolic function. Atria The left atrium is normal in size. The right atrium is mildly dilated. Aortic Valve There is a normal trileaflet aortic valve. There is mild calcification of the aortic valve. There is no aortic valve stenosis. Mitral Valve The mitral valve appears normal. There is no mitral valve regurgitation. There is no mitral valve stenosis. Pulmonic Valve The pulmonic valve is likely normal. Tricuspid Valve Normal tricuspid valve structure. There is no tricuspid valve regurgitation. There is no evidence of pulmonary hypertension. Great Vessels The asc aorta is normal in size. Venous The inferior vena cava is mildly dilated and collapses greater than 50% with inspiration. Pericardium/Pleural There is no evidence of pericardial effusion. Prior Study Comparison No significant change compared to prior study dated: 08/06/2023. Recommendations, Care & Conclusions No obvious valvular pathology seen on this study. Measurements 2D Linear Measurements IVSd: 1.21 0.6-0.9/0.6-1.0 cm LVIDd: 5.40 3.9-5.3/4.2-5.9 cm LVIDd Index: 2.66 2.4-3.2/2.2-3.1 cm/m2 LVIDs: 3.21 2.0-3.6 cm LVPWd: 1.24 0.7-1.1 cm LA Diam: 3.60 2.7-3.8/3.0-4.0 cm LAIDs Index: 1.77 1.5-2.3 cm/m2 LV Mass: 339.32 67-162/88-224 g LV Mass Index: 167.15 43-95/49-115 g/m2 LVOT Diam: 2.20 3.0+(-)1.3 cm 2D Systolic Function EF 4C: 65.10 >55% EF 2C: 59.50 >55% EF BiP: 62.50 >55% Mitral Valve MV Pk E: 1.16 MV PK A: 1.45 MV Decel Time: 236.00 E/A: 0.80 E'Lateral: 10.20 E'Medial: 7.83 E/E' Med: 14.80 E/E' Lat: 11.40 PHT: 69.00 MVA PHT: 3.19 [place]: 4.92 Aortic Valve AoV Pk Mario: 1.75 AoV Mn Mario: 1.21 AoV VTI: 0.42 AoV Pk Grad: 12.00 Aov Mn Grad: 7.00 DIONTE Cont.VTI: 2.76 LVOT LVOT Pk Mario: 1.27 LVOT Mn Mario: 0.90 LVOT VTI: 0.30 LVOT Pk Grad: 6.00 LVOT Mn Grad: 4.00 LVOT Diam: 2.20 LVOT Area: 3.80 Diastolic Function MV Pk E: 1.16 MV Pk A: 1.45 E/A: 0.80 E'Medial: 7.83 E/E' Med: 14.80 E' Laterial: 10.20 E/E' Lat: 11.40 Right Ventricle TAPSE (mm): 34.30 TVS' Mario: 18.30 Tricuspid Valve TR Pk Mario: 2.40 TR Pk Grad: 23.00 RA Press: 8.00 RVSP: 31.00 Great Vessels Aorta Sinus of Valsalva: 3.70 2.0-3.5 cm Ao Asc: 3.50 2.1-3.4 cm Pulmonary Veins Pulm Vein S/D 0.90 Pulmonary Valve PV Pk Mario: 1.07 Peak PV Grad: 5.00 Updated in Other Vendor System with Status of Final Lennox Ortiz MD electronically signed on 03/30/2025 3:40:17 PM with status of Final
[2025-03-30 07:24] LABS: Glucose, Whole Blood 202 mg/dL (60-115)
--- NOTE | 2025-03-30 07:30 | PC.NURSE ---
pt is alert and oriented, skin pwd, respirations even and unlabored, ls clear pt reports feeling much better then yesterday denies pain and feeling sob, pt does have an intermittent junky cough, pt is on 2l via nasal cannual and sating well, vs stable
[2025-03-30] MEDS: 0.9 % Sodium Chloride Flush 3 ML SYRINGE IVFLUSH ×3 (07:36→20:48)
[2025-03-30] MEDS: Fluticasone/Umeclidinium/Vilanterol 200/62.5/25 BLST.W.DEV 1 PUFF INHALE (07:41)
--- NOTE | 2025-03-30 08:30 | PC.NURSE ---
pt moved over to a hospital bed for more comfort
[2025-03-30] MEDS: Furosemide 40 MG/4 ML VIAL IVPUSH (09:10)
[2025-03-30] MEDS: Theophylline Anhydrous ER 300 MG TAB.ER.12H 450 MG PO (10:42)
[2025-03-30 12:12] LABS: Glucose, Whole Blood 196 mg/dL (60-115)
--- NOTE | 2025-03-30 12:50 | HO.PM.IMPN ---
Subjective Subjective Date of Service: 03/30/25 Interval History: sob improving Physical Exam Exam: Exam: General: AO X 3, nosome dyspnea Resp: less wheezing bilateral, no accessory muscles used CVS: S1,S2,RRR GI: soft, non tender, non distended Neuro: motor grossly intact, alert Psych: appropriate affect, appropriate insight Vital Signs: Vital Signs: Last Vital Signs Temp 98.1 F 03/30/25 12:20 Pulse 90 03/30/25 12:20 Resp 22 H 03/30/25 12:20 BP 122/59 L 03/30/25 12:20 Pulse Ox 93 03/30/25 12:20 O2 Del Method Nasal Cannula 03/30/25 12:20 O2 Flow Rate 2 03/30/25 12:20 BMI result Body Mass Index 31.8 Objective Data Active Medications Acetaminophen (Acetaminophen 325 Mg Tablet) 650 mg PO Q6H PRN PRN Reason: Pain, Mild 1-3,fever,headache Albuterol/Ipratropium (Albuterol/Iprat 2.5/0.5mg 3 Ml Ampul.Neb) 3 ml INHALE RQ4H WHILE AWAKE PRN PRN Reason: sob Aspirin (Aspirin Enteric Coated 81 Mg Tablet.) 81 mg PO BEDTIME [facility] Last Admin: 03/29/25 22:35 Dose: 81 mg Documented By: MADISYN Atorvastatin Calcium (Atorvastatin Calcium 40 Mg Tablet) 40 mg PO BEDTIME [facility] Last Admin: 03/29/25 22:36 Dose: 40 mg Documented By: MADISYN Azithromycin (Azithromycin 500 Mg Tablet) 500 mg PO Q24H [facility] Last Admin: 03/30/25 09:11 Dose: 500 mg Documented By: EJ Calcium Carbonate (Calcium Carbonate 750 Mg Tab.Chew) 750 mg PO Q4H PRN PRN Reason: Heartburn Dextrose (Dextrose 50 % 25 Gm/50 Ml Syringe) 25 gm IVPUSH Q15M PRN; Protocol PRN Reason: per Hypoglycemia Standing Ord. Enoxaparin Sodium (Enoxaparin Sodium 40 Mg/0.4 Ml Syringe) 40 mg SUBCUT Q24H [facility] Last Admin: 03/30/25 09:10 Dose: 40 mg Documented By: EJ Famotidine (Famotidine 20 Mg Tablet) 40 mg PO BEDTIME [facility] Last Admin: 03/29/25 22:35 Dose: 40 mg Documented By: MADISYN Fluoxetine HCl (Fluoxetine Hcl 20 Mg Capsule) 40 mg PO DAILY [facility] Last Admin: 03/30/25 09:11 Dose: 40 mg Documented By: EJ Fluticasone/Umeclidinium/Vilanterol (Fluticasone/Umeclidinium/Vilanterol 200/62.5/25 Blst.W.Dev) 1 puff INHALE RDAILY [facility] Last Admin: 03/30/25 07:41 Dose: 1 puff Documented By: SUNITHA Gabapentin (Gabapentin 600 Mg Tablet) 600 mg PO TID [facility] Last Admin: 03/30/25 09:11 Dose: 600 mg Documented By: EJ Glucose (Glucose Gel 15 Gm Gel..Gram.) 15 gm PO Q15M PRN; Protocol PRN Reason: per Hypoglycemia Standing Ord. Hydroxyzine HCl (Hydroxyzine Hcl 50 Mg Tablet) 50 mg PO BEDTIME [facility] Last Admin: 03/29/25 22:35 Dose: 50 mg Documented By: MADISYN Insulin Human Lispro (Insulin Lispro 100 Unit/Ml 3 Ml Vial) 0 unit SUBCUT QIDACHS [facility]; Protocol Last Admin: 03/30/25 07:33 Dose: 4 unit Documented By: EJ Isosorbide Mononitrate (Isosorbide Mononitrate 30 Mg Tab.Er.24h) 30 mg PO DAILY [facility]; Protocol Last Admin: 03/30/25 09:10 Dose: 30 mg Documented By: EJ Lisinopril (Lisinopril 10 Mg Tablet) 10 mg PO DAILY [facility]; Protocol Last Admin: 03/30/25 09:11 Dose: 10 mg Documented By: EJ Magnesium Hydroxide (Milk Of Magnesia 30 Ml Oral.Susp) 30 ml PO DAILY PRN PRN Reason: Constipation Melatonin (Melatonin 3 Mg Tablet) 6 mg PO BEDTIME PRN PRN Reason: Insomnia Methimazole (Methimazole 5 Mg Tablet) 5 mg PO DAILY [facility] Last Admin: 03/30/25 09:10 Dose: 5 mg Documented By: EJ Methylprednisolone Sodium Succinate (Methylprednisolone Sod Succ 40 Mg/Ml Vial) 40 mg IVPUSH Q12H [facility] Last Admin: 03/30/25 04:13 Dose: 40 mg Documented By: MADISYN Nicotine (Nicotine 14 Mg Patch.Td24) 14 mg TRANSDERMA DAILY [facility] Omeprazole (Omeprazole 20 Mg Capsule.Dr) 20 mg PO DAILY@0630 [facility] Last Admin: 03/30/25 07:33 Dose: 20 mg Documented By: EJ Sodium Chloride (0.9 % Sodium Chloride Flush 3 Ml Syringe) 3 ml IVFLUSH QSHIFT [facility] Last Admin: 03/30/25 07:36 Dose: 3 ml Documented By: EJ Tamsulosin HCl (Tamsulosin Hcl 0.4 Mg Capsule) 0.4 mg PO BEDTIME [facility] Last Admin: 03/29/25 22:36 Dose: 0.4 mg Documented By: MADISYN Theophylline (Theophylline Anhydrous Er 300 Mg Tab.Er.12h) 450 mg PO DAILY [facility] Last Admin: 03/30/25 10:42 Dose: 450 mg Documented By: EJ Vitamin D (Cholecalciferol (Vitamin D3) 25 Mcg Tablet) 50 mcg PO DAILY [facility] Last Admin: 03/30/25 09:11 Dose: 50 mcg Documented By: EJ Labs 03/30/25 04:12 03/30/25 04:12 Labs: Laboratory Results - last 24 hr 03/29/25 03/29/25 03/29/25 15:42 18:24 19:59 MCV 87.8 MCH 29.9 MCHC 34.0 RDW 12.8 Plt Count 187 MPV 9.2 L Immature Gran % (Auto) 0.4 Neut % (Auto) 72.1 Lymph % (Auto) 18.9 L [place] % (Auto) 7.3 Eos % (Auto) 0.9 Baso % (Auto) 0.4 Lymph # (Auto) 1.9 [place] # (Auto) 0.8 Eos # (Auto) 0.1 Baso # (Auto) 0.0 Abs Immat Gran (auto) 0.04 H Absolute Neuts (auto) 7.4 Absolute Nucleated RBC 0.000 Nucleated RBC % (auto) 0.0 Anion Gap 13 Estim Creat Clear Calc 73.6 Estimated GFR > 60 POC Glucose 195 H Random Glucose 123 H Lactic Acid 1.8 Calcium 9.8 D Magnesium Total Bilirubin 0.2 AST 29 ALT 34 Alkaline Phosphatase 93 Troponin I High Sens 4.8 D < 2.7 NT-Pro-B Natriuret Pep 484.8 H Total Protein 7.7 Albumin 4.0 Influenza Type A (PCR) NEGATIVE Influenza Type B (PCR) NEGATIVE RSV RNA Qual (PCR) NEGATIVE SARS-CoV-2 RNA (RT-PCR) NEGATIVE S. pyogenes GrpA CORTNEY Negative 03/30/25 03/30/25 03/30/25 04:12 07:17 12:06 MCV 88.8 MCH 28.6 MCHC 32.2 RDW 13.0 Plt Count 200 MPV 9.4 Immature Gran % (Auto) Neut % (Auto) Lymph % (Auto) [place] % (Auto) Eos % (Auto) Baso % (Auto) Lymph # (Auto) [place] # (Auto) Eos # (Auto) Baso # (Auto) Abs Immat Gran (auto) Absolute Neuts (auto) Absolute Nucleated RBC 0.000 Nucleated RBC % (auto) 0.0 Anion Gap 18 Estim Creat Clear Calc 62.4 Estimated GFR > 60 POC Glucose 202 H 196 H Random Glucose 239 H Lactic Acid Calcium 9.5 Magnesium 1.9 Total Bilirubin AST ALT Alkaline Phosphatase Troponin I High Sens NT-Pro-B Natriuret Pep Total Protein Albumin Influenza Type A (PCR) Influenza Type B (PCR) RSV RNA Qual (PCR) SARS-CoV-2 RNA (RT-PCR) S. pyogenes GrpA CORTNEY Assessment and Plan (1) COPD (chronic obstructive pulmonary disease): Status: Acute Plan 69M PMH COPD, diabetes, nonobstructive CAD, BPH, hyperlipidemia, active smoker, hyperthyroid presented with shortness of breath Acute hypoxic respiratory failure due to COPD with acute decompensation IV steroids, DuoNebs, azithromycin, wean O2 as tolerated, smoking cessation still satting high 80s on room air, needing 2L Acute on chronic diastolic CHF diuresed well, will change back to po lasix Check echo Chest pain with history of nonobstructive CAD on CTA check echo Diabetes Insulin sliding scale DVT prophylaxis with Lovenox Full code reason for continued hospitalization:hypoxia Quality Stroke Does the patient have a stroke diagnosis?: No VTE Prior VTE?: No VTE Risk Level:: Medical - moderate - high VTE Device Contraindication: Treatment Not Indicated VTE Drug Contraindication: N/A - Med Ordered
[2025-03-30] MEDS: Nicotine 14 MG PATCH.TD24 TRANSDERMA (12:53)
[2025-03-30 13:17] LABS: Chlamydia pneumoniae PCR Not Detected (Not Detect.); Coronavirus 229E PCR Not Detected (Not Detect.); Coronavirus HKU1 PCR Not Detected (Not Detect.); Coronavirus NL63 PCR Not Detected (Not Detect.); Coronavirus OC43 PCR Not Detected (Not Detect.); RSV PCR Not Detected (Not Detect.); Rhino/Enterovirus PCR Not Detected (Not Detect.)
[2025-03-30 14:52] LABS: Influenza A H1 PCR Not Detected (Not Detect.); Influenza A H1-2009 PCR Not Detected (Not Detect.); Influenza A H3 PCR Not Detected (Not Detect.); SARS-CoV-2 PCR Not Detected (Not Detect.)
[2025-03-30 16:29] LABS: Glucose, Whole Blood 199 mg/dL (60-115)
[2025-03-30] MEDS: Aspirin Enteric Coated 81 MG TABLET.DR PO (20:46)
[2025-03-31] VITALS (7 sets, daily range): BP systolic 121–145; BP diastolic 60–81; PULSE 61–80; RESP 17–20; TEMP 36.2–36.8; O2SAT 91–96
[2025-03-31 06:52] LABS: Hematocrit 40.6 % (42.0-52.0); Hemoglobin 13.5 g/dl (14.0-18.0); Mean Corpuscular HGB Conc 33.3 g/dl (31.0-36.0); Mean Corpuscular Hemoglobin 29.2 pg (27.0-33.0); Mean Corpuscular Volume 87.9 fL (80.0-98.0); NRBC Abs Auto 0.000 X10*3/uL (0.0-0.012); NRBC Pct Auto 0.0 /100WBC (0.0-0.2); Platelet Count 215 X10*3/uL (160-400); Red Blood Count 4.62 X10*6/uL (4.60-5.80); White Blood Count 14.6 X10*3/uL (4.8-10.8)
[2025-03-31] MEDS: Fluticasone/Umeclidinium/Vilanterol 200/62.5/25 BLST.W.DEV 1 PUFF INHALE (07:52)
[2025-03-31 08:01] LABS: Anion Gap 14 (12-20); Blood Urea Nitrogen 25 mg/dL (9-16); Calcium 9.0 mg/dL (8.4-10.2); Carbon Dioxide 25 mmol/L (22-29); Chloride 103 mmol/L (96-108); Creatinine Clr Calc Pharmacy 86.4; Estimated Glomerular Filt Rate > 60; Magnesium 2.1 mg/dL (1.6-2.6); Potassium 5.1 mmol/L (3.3-5.1); Sodium 137 mmol/L (135-145)
[2025-03-31 08:04] LABS: Glucose, Whole Blood 177 mg/dL (60-115)
[2025-03-31] MEDS: Theophylline Anhydrous ER 300 MG TAB.ER.12H 450 MG PO (08:36)
[2025-03-31] MEDS: Nicotine 14 MG PATCH.TD24 TRANSDERMA (08:37)
[2025-03-31] MEDS: 0.9 % Sodium Chloride Flush 3 ML SYRINGE IVFLUSH ×2 (08:38→16:26)
--- NOTE | 2025-03-31 08:38 | MHC.CM.PN ---
CM addressed IMM with Patient. Patient lives in a first floor apartment with his Ex-/HCP/Caregiver/Beckie who will transport at pr. PCP is Dr. Brennan and Patient uses a cane.
--- NOTE | 2025-03-31 08:42 | P.PNIM_ITS ---
Subjective Subjective Date of Service: 03/31/25 Interval History: sob improving Physical Exam 2 Exam: Exam: General: AO X 3, no acute distress Resp: CTA bilateral, no accessory muscles used CVS: S1,S2,RRR GI: soft, non tender, non distended Neuro: motor grossly intact, alert Psych: appropriate affect, appropriate insight Vital Signs: Vital Signs: Last Vital Signs Temp 97.4 F 03/31/25 07:39 Pulse 65 03/31/25 07:52 Resp 20 03/31/25 07:52 BP 145/65 H 03/31/25 07:39 Pulse Ox 92 03/31/25 07:39 O2 Del Method Nasal Cannula 03/31/25 07:39 O2 Flow Rate 2 03/31/25 07:39 BMI result Body Mass Index 31.8 Objective Data Active Medications Acetaminophen (Acetaminophen 325 Mg Tablet) 650 mg PO Q6H PRN PRN Reason: Pain, Mild 1-3,fever,headache Albuterol/Ipratropium (Albuterol/Iprat 2.5/0.5mg 3 Ml Ampul.Neb) 3 ml INHALE RQ4H WHILE AWAKE PRN PRN Reason: sob Aspirin (Aspirin Enteric Coated 81 Mg Tablet.) 81 mg PO BEDTIME [facility] Last Admin: 03/30/25 20:46 Dose: 81 mg Documented By: SILAS Atorvastatin Calcium (Atorvastatin Calcium 40 Mg Tablet) 40 mg PO BEDTIME [facility] Last Admin: 03/30/25 20:46 Dose: 40 mg Documented By: SILAS Azithromycin (Azithromycin 500 Mg Tablet) 500 mg PO Q24H [facility] Last Admin: 03/30/25 09:11 Dose: 500 mg Documented By: EJ Calcium Carbonate (Calcium Carbonate 750 Mg Tab.Chew) 750 mg PO Q4H PRN PRN Reason: Heartburn Dextrose (Dextrose 50 % 25 Gm/50 Ml Syringe) 25 gm IVPUSH Q15M PRN; Protocol PRN Reason: per Hypoglycemia Standing Ord. Enoxaparin Sodium (Enoxaparin Sodium 40 Mg/0.4 Ml Syringe) 40 mg SUBCUT Q24H [facility] Last Admin: 03/30/25 09:10 Dose: 40 mg Documented By: EJ Famotidine (Famotidine 20 Mg Tablet) 40 mg PO BEDTIME [facility] Last Admin: 03/30/25 20:46 Dose: 40 mg Documented By: SILAS Fluoxetine HCl (Fluoxetine Hcl 20 Mg Capsule) 40 mg PO DAILY [facility] Last Admin: 03/30/25 09:11 Dose: 40 mg Documented By: EJ Fluticasone/Umeclidinium/Vilanterol (Fluticasone/Umeclidinium/Vilanterol 200/62.5/25 Blst.W.Dev) 1 puff INHALE RDAILY [facility] Last Admin: 03/31/25 07:52 Dose: 1 puff Documented By: THOMAS Furosemide (Furosemide 40 Mg Tablet) 40 mg PO DAILY [facility]; Protocol Gabapentin (Gabapentin 600 Mg Tablet) 600 mg PO TID [facility] Last Admin: 03/30/25 20:46 Dose: 600 mg Documented By: SILAS Glucose (Glucose Gel 15 Gm Gel..Gram.) 15 gm PO Q15M PRN; Protocol PRN Reason: per Hypoglycemia Standing Ord. Hydroxyzine HCl (Hydroxyzine Hcl 50 Mg Tablet) 50 mg PO BEDTIME [facility] Last Admin: 03/30/25 20:46 Dose: 50 mg Documented By: SILAS Insulin Human Lispro (Insulin Lispro 100 Unit/Ml 3 Ml Vial) 0 unit SUBCUT QIDACHS [facility]; Protocol Last Admin: 03/30/25 21:37 Dose: 4 unit Documented By: SILAS Isosorbide Mononitrate (Isosorbide Mononitrate 30 Mg Tab.Er.24h) 30 mg PO DAILY [facility]; Protocol Last Admin: 03/30/25 09:10 Dose: 30 mg Documented By: EJ Lisinopril (Lisinopril 10 Mg Tablet) 10 mg PO DAILY [facility]; Protocol Last Admin: 03/30/25 09:11 Dose: 10 mg Documented By: EJ Magnesium Hydroxide (Milk Of Magnesia 30 Ml Oral.Susp) 30 ml PO DAILY PRN PRN Reason: Constipation Melatonin (Melatonin 3 Mg Tablet) 6 mg PO BEDTIME PRN PRN Reason: Insomnia Methimazole (Methimazole 5 Mg Tablet) 5 mg PO DAILY [facility] Last Admin: 03/30/25 09:10 Dose: 5 mg Documented By: EJ Methylprednisolone Sodium Succinate (Methylprednisolone Sod Succ 40 Mg/Ml Vial) 40 mg IVPUSH Q12H [facility] Last Admin: 03/31/25 03:58 Dose: 40 mg Documented By: SILAS Nicotine (Nicotine 14 Mg Patch.Td24) 14 mg TRANSDERMA DAILY [facility] Last Admin: 03/30/25 12:53 Dose: 14 mg Documented By: EJ Omeprazole (Omeprazole 20 Mg Capsule.Dr) 20 mg PO DAILY@0630 [facility] Last Admin: 03/31/25 05:51 Dose: 20 mg Documented By: SILAS Sodium Chloride (0.9 % Sodium Chloride Flush 3 Ml Syringe) 3 ml IVFLUSH QSHIFT [facility] Last Admin: 03/30/25 20:48 Dose: 3 ml Documented By: SILAS Tamsulosin HCl (Tamsulosin Hcl 0.4 Mg Capsule) 0.4 mg PO BEDTIME [facility] Last Admin: 03/30/25 20:46 Dose: 0.4 mg Documented By: SILAS Theophylline (Theophylline Anhydrous Er 300 Mg Tab.Er.12h) 450 mg PO DAILY [facility] Last Admin: 03/30/25 10:42 Dose: 450 mg Documented By: EJ Vitamin D (Cholecalciferol (Vitamin D3) 25 Mcg Tablet) 50 mcg PO DAILY [facility] Last Admin: 03/30/25 09:11 Dose: 50 mcg Documented By: EJ Labs 03/31/25 06:13 03/31/25 06:13 Labs: Laboratory Results - last 24 hr 03/30/25 03/30/25 03/30/25 12:06 12:12 16:25 MCV MCH MCHC RDW Plt Count MPV Absolute Nucleated RBC Nucleated RBC % (auto) Anion Gap Estim Creat Clear Calc Estimated GFR POC Glucose 196 H 199 H Random Glucose Calcium Magnesium Respiratory Panel [place] See Note Adenovirus (Rapid PCR) Not Detected B.pert (TEM-PCR) Not Detected B.parapertussis DNA PCR Not Detected C. pneumoniae DNA (PCR) Not Detected Coronavirus OC43 (PCR) Not Detected Coronavirus HKU1 (PCR) Not Detected Coronavirus 229E (PCR) Not Detected Coronavirus NL63 (PCR) Not Detected Human Metapneumovir PCR Not Detected Influenza A (RT-PCR) Not Detected Influenza A (H1) PCR Not Detected Influ A (H1/09) PCR Not Detected Influenza A (H3) PCR Not Detected Influenza B (RT-PCR) Not Detected M. pneumoniae (PCR) Not Detected Parainfluenza 1 (PCR) Not Detected Parainfluenza 2 (PCR) Not Detected Parainfluenza 3 (PCR) Not Detected Parainfluenza 4 (PCR) Not Detected RSV (PCR) Not Detected Entero/Rhino (PCR) Not Detected SARS-CoV-2 RNA (RT-PCR) Not Detected 03/30/25 03/31/25 03/31/25 21:10 06:13 07:57 MCV 87.9 MCH 29.2 MCHC 33.3 RDW 12.8 Plt Count 215 MPV 9.6 Absolute Nucleated RBC 0.000 Nucleated RBC % (auto) 0.0 Anion Gap 14 Estim Creat Clear Calc 86.4 Estimated GFR > 60 POC Glucose 207 H 177 H Random Glucose 165 H Calcium 9.0 Magnesium 2.1 Respiratory Panel [place] Adenovirus (Rapid PCR) B.pert (TEM-PCR) B.parapertussis DNA PCR C. pneumoniae DNA (PCR) Coronavirus OC43 (PCR) Coronavirus HKU1 (PCR) Coronavirus 229E (PCR) Coronavirus NL63 (PCR) Human Metapneumovir PCR Influenza A (RT-PCR) Influenza A (H1) PCR Influ A (H1/09) PCR Influenza A (H3) PCR Influenza B (RT-PCR) M. pneumoniae (PCR) Parainfluenza 1 (PCR) Parainfluenza 2 (PCR) Parainfluenza 3 (PCR) Parainfluenza 4 (PCR) RSV (PCR) Entero/Rhino (PCR) SARS-CoV-2 RNA (RT-PCR) Microbiology Microbiology Results: Microbiology 03/29/25 16:17 Blood Culture - Preliminary Blood - Venous No growth after 24 hours. 03/29/25 16:17 Blood Culture - Preliminary Blood - Venous No growth after 24 hours. Assessment and Plan (1) COPD (chronic obstructive pulmonary disease): Status: Acute Plan 69M PMH COPD, diabetes, nonobstructive CAD, BPH, hyperlipidemia, active smoker, hyperthyroid presented with shortness of breath Acute hypoxic respiratory failure due to COPD with acute decompensation IV steroids, DuoNebs, azithromycin, smoking cessation - Nicoderm Continue to wean oxygen Acute on chronic diastolic CHF diuresed well, changed back to po lasix Chest pain with history of nonobstructive CAD on CTA No signs of ACS Diabetes Insulin sliding scale DVT prophylaxis with Lovenox Full code reason for continued hospitalization: Weaning O2 Quality Stroke Does the patient have a stroke diagnosis?: No VTE Prior VTE?: No VTE Risk Level:: Medical - moderate - high VTE Device Contraindication: Treatment Not Indicated VTE Drug Contraindication: N/A - Med Ordered
--- NOTE | 2025-03-31 08:46 | PM.DS ---
DS: Providers Provider Date of Service: 04/01/25 Date of admission: 03/29/25 17:41 Date of discharge: 04/01/25 Primary care physician: Gonzales Brennan MD DS: Diagnosis Discharge Diagnosis (1) COPD (chronic obstructive pulmonary disease): Status: Acute DS: Summary Hospital Course Hospital Course: from initial hpi: 69M PMH COPD, diabetes, nonobstructive CAD, BPH, hyperlipidemia, active smoker, hyperthyroid presented with shortness of breath. Patient states he has been feeling unwell for about 1 week. Reports cough with productive yellow sputum, subjective fevers, sick contacts his daughter had similar symptoms. Also reporting worsening shortness of breath on exertion and lying down requiring multiple pillows to sleep and waking up in the middle night with short of breath and diaphoretic. As he was not getting any better he came to the ED. In ED noted to be 85% on room air, chest x-ray unremarkable. In ED started to have left-sided sharp chest pain nonradiating lasted about 2 hours. Troponin negative, EKG nonischemic. hospital course: Patient was admitted for acute hypoxic respiratory failure due to COPD with acute decompensation. Was treated with IV steroids, DuoNebs, azithromycin he started to feel much better and was eventually weaned off of oxygen. For acute on chronic diastolic CHF received IV Lasix and diuresed well. He was transitioned back to oral Lasix maintenance. For chest pain with history of nonobstructive CAD he had no evidence of ACS and chest pain resolved. For diabetes was continued insulin sliding scale. Patient is feeling better he will be discharged home on 5 more days of prednisone and azithromycin. Time Attestation Discharge Coordination Time (in mins): 37 Quality: Safe Use of Opioids Does Pt have an Active Cancer Diagnosis on the Problem List?: No Quality: Stroke Does the patient have a stroke diagnosis?: No Physical Exam Exam: Exam: General: AO X 3, no acute distress Resp: CTA bilateral, no accessory muscles used CVS: S1,S2,RRR GI: soft, non tender, non distended Neuro: motor grossly intact, alert Psych: appropriate affect, appropriate insight Vital Signs: Vital Signs: Last Vital Signs Temp 97.4 F 03/31/25 07:39 Pulse 65 03/31/25 07:52 Resp 20 03/31/25 07:52 BP 145/65 H 03/31/25 08:36 Pulse Ox 92 03/31/25 07:39 O2 Del Method Nasal Cannula 03/31/25 07:39 O2 Flow Rate 2 03/31/25 07:39 BMI result Body Mass Index 31.8 DS: Data Data Completed and Pending Labs on day of discharge: Laboratory Results - last 24 hr 03/30/25 03/30/25 03/30/25 12:06 12:12 16:25 WBC RBC Hgb Hct MCV MCH MCHC RDW Plt Count MPV Absolute Nucleated RBC Nucleated RBC % (auto) Sodium Potassium Chloride Carbon Dioxide Anion Gap BUN Creatinine Estim Creat Clear Calc Estimated GFR POC Glucose 196 H 199 H Random Glucose Calcium Magnesium Respiratory Panel [place] See Note Adenovirus (Rapid PCR) Not Detected B.pert (TEM-PCR) Not Detected B.parapertussis DNA PCR Not Detected C. pneumoniae DNA (PCR) Not Detected Coronavirus OC43 (PCR) Not Detected Coronavirus HKU1 (PCR) Not Detected Coronavirus 229E (PCR) Not Detected Coronavirus NL63 (PCR) Not Detected Human Metapneumovir PCR Not Detected Influenza A (RT-PCR) Not Detected Influenza A (H1) PCR Not Detected Influ A (H1/09) PCR Not Detected Influenza A (H3) PCR Not Detected Influenza B (RT-PCR) Not Detected M. pneumoniae (PCR) Not Detected Parainfluenza 1 (PCR) Not Detected Parainfluenza 2 (PCR) Not Detected Parainfluenza 3 (PCR) Not Detected Parainfluenza 4 (PCR) Not Detected RSV (PCR) Not Detected Entero/Rhino (PCR) Not Detected SARS-CoV-2 RNA (RT-PCR) Not Detected 03/30/25 03/31/25 03/31/25 21:10 06:13 07:57 WBC 14.6 H RBC 4.62 Hgb 13.5 L Hct 40.6 L MCV 87.9 MCH 29.2 MCHC 33.3 RDW 12.8 Plt Count 215 MPV 9.6 Absolute Nucleated RBC 0.000 Nucleated RBC % (auto) 0.0 Sodium 137 Potassium 5.1 Chloride 103 Carbon Dioxide 25 Anion Gap 14 BUN 25 H Creatinine 0.86 Estim Creat Clear Calc 86.4 Estimated GFR > 60 POC Glucose 207 H 177 H Random Glucose 165 H Calcium 9.0 Magnesium 2.1 Respiratory Panel [place] Adenovirus (Rapid PCR) B.pert (TEM-PCR) B.parapertussis DNA PCR C. pneumoniae DNA (PCR) Coronavirus OC43 (PCR) Coronavirus HKU1 (PCR) Coronavirus 229E (PCR) Coronavirus NL63 (PCR) Human Metapneumovir PCR Influenza A (RT-PCR) Influenza A (H1) PCR Influ A (H1/09) PCR Influenza A (H3) PCR Influenza B (RT-PCR) M. pneumoniae (PCR) Parainfluenza 1 (PCR) Parainfluenza 2 (PCR) Parainfluenza 3 (PCR) Parainfluenza 4 (PCR) RSV (PCR) Entero/Rhino (PCR) SARS-CoV-2 RNA (RT-PCR) Preliminary micro results at discharge 03/29/25 16:17 Blood Culture - Preliminary Blood - Venous No growth after 24 hours. 03/29/25 16:17 Blood Culture - Preliminary Blood - Venous No growth after 24 hours. Discharge Plan Discharge Anticipated Discharge Date/Time: 03/31/25 08:43 Patient Disposition: Home, Self-Care Discharge Diagnosis: copd Referrals: Gonzales Brennan MD [Primary Care Provider, Medical] - 1 Week Discharge Medications: New prednisone 20 mg tablet 40 mg PO DAILY Qty: 10 0RF azithromycin 500 mg tablet 500 mg PO DAILY 5 Days Qty: 5 0RF Continued albuterol sulfate 2.5 mg /3 mL (0.083 %) solution for nebulization 2.5 mg inhalation Q6H PRN (Reason: shortness of breath or wheezing) 30 Days Qty: 180 0RF Ohtuvayre 3 mg/2.5 mL suspension for nebulization 3 mg inhalation BID Qty: 150 6RF cholecalciferol (vitamin D3) 50 mcg (2,000 unit) capsule 50 mcg PO DAILY Qty: 90 3RF famotidine 40 mg tablet 40 mg PO BEDTIME Qty: 30 3RF bisacodyl [Dulcolax (bisacodyl)] 5 mg tablet,delayed release (DR/EC) 10 mg PO BEDTIME Qty: 180 4RF Trelegy Ellipta 200-62.5-25 mcg blister with device 1 ea inhalation DAILY Qty: 60 6RF theophylline 450 mg tablet extended release 12 hr 450 mg PO DAILY Qty: 30 3RF simethicone [Gas Relief (simethicone)] 125 mg capsule 125 mg PO QID PRN (Reason: abdominal distention) nicotine (polacrilex) 4 mg gum 4 mg buccal Q2H PRN (Reason: Nicotine Cravings) furosemide 40 mg tablet 40 mg PO DAILY esomeprazole magnesium 40 mg capsule,delayed release(DR/EC) 40 mg PO DAILY@0630 isosorbide mononitrate 30 mg tablet extended release 24 hr 30 mg PO DAILY lisinopril 10 mg tablet 10 mg PO DAILY gabapentin 600 mg tablet 600 mg PO TID aspirin 81 mg tablet,delayed release (DR/EC) 81 mg PO BEDTIME fluoxetine 40 mg capsule 40 mg PO DAILY atorvastatin 40 mg tablet 40 mg PO BEDTIME methimazole 5 mg tablet 5 mg PO DAILY tamsulosin 0.4 mg capsule 0.4 mg PO BEDTIME hydroxyzine HCl 50 mg tablet 50 mg PO BEDTIME metformin 1,000 mg tablet 1,000 mg PO BID nitroglycerin 0.4 mg tablet, sublingual 0.4 mg sublingual Q5M PRN (Reason: angina) glipizide 5 mg tablet extended release 24hr 5 mg PO DAILY albuterol sulfate 90 mcg/actuation HFA aerosol inhaler 2 puff inhalation Q4-6H PRN (Reason: shortness of breath or wheezing) 30 Days Qty: 1 6RF Discharge Orders: Discharge Order (Routine); Ordered 04/01/25 Ordered By: Ab Collins Diet: Advance to usual diet Activity on Discharge: As tolerated Stand Alone Forms: Patient Portal Discharge page Print Language: Tajik Care Plan Goals: recovery Health Concerns: copd Plan of Treatment: 5 more days prednisone and azithro Assessment: see above
[2025-03-31 11:35] LABS: Glucose, Whole Blood 182 mg/dL (60-115)
[2025-03-31 16:21] LABS: Glucose, Whole Blood 169 mg/dL (60-115)
[2025-03-31 20:28] LABS: Glucose, Whole Blood 248 mg/dL (60-115)
[2025-03-31] MEDS: Aspirin Enteric Coated 81 MG TABLET.DR PO (20:29)
[2025-04-01] VITALS: BP 133/77; PULSE 55; RESP 20; TEMP 36.3; O2SAT 97
[2025-04-01 04:00] VITALS: BP 144/70; PULSE 61; RESP 20; TEMP 36.2; O2SAT 95
[2025-04-01 06:29] VITALS: BP 154/80; PULSE 54; RESP 20; TEMP 36.2; O2SAT 96
[2025-04-01 07:22] LABS: Glucose, Whole Blood 143 mg/dL (60-115)
[2025-04-01] MEDS: 0.9 % Sodium Chloride Flush 3 ML SYRINGE IVFLUSH (08:57)
[2025-04-01] MEDS: Nicotine 14 MG PATCH.TD24 TRANSDERMA (08:58)
[2025-04-01 08:59] VITALS: BP 168/77
[2025-04-01] MEDS: Theophylline Anhydrous ER 300 MG TAB.ER.12H 450 MG PO (08:59)
[2025-04-01 09:29] VITALS: PULSE 60; PULSE 64; PULSE 65; PULSE 66; PULSE 67; O2SAT 90; O2SAT 91; O2SAT 92
--- NOTE | 2025-04-01 09:46 | MHC.CM.PN ---
PT CLEARED TO DC HOME TODAY WITH NO SERVICES VIA PRIVATE TRANSPORT
== END 2025-04-01 10:40 | disposition home or self-care (01) | DRG 190 ==
LOC: HO.ED 17:41 → HO.EDOVER 18:05 → HO.IMC 03-30 13:19 → HO.S3 04-01 06:22
PROVIDERS: Physician Assistant; Admitting Provider Internal Medicine; Emergency Provider Emergency Medicine; PCP Internal Medicine; Visit Provider Internal Medicine
DX: J44.1 Chronic obstructive pulmonary disease with (acute) exacerbation (principal); I50.33 Acute on chronic diastolic (congestive) heart failure; J96.01 Acute respiratory failure with hypoxia; I25.10 Atherosclerotic heart disease of native coronary artery without angina pectoris; E11.9 Type 2 diabetes mellitus without complications; Z20.822 Contact with and (suspected) exposure to COVID-19; Z79.82 Long term (current) use of aspirin; Z79.84 Long term (current) use of oral hypoglycemic drugs; Z79.899 Other long term (current) drug therapy
CPT/HCPCS: 36415; 71045; 80048; 80053; 82947; 83605; 83735; 83880; 84484; 85025; 85027; 87040; 87633; 87637; 87651; 93005; 93306; 94640; 99285; J1271; J1650; J1938; J2919; J3475; Q9957

== ENCOUNTER → 2025-03-29 15:15 | Outpatient (BNV) | payer MEDICARE, MEDICAID, SELFPAY | PROVIDERS: Emergency Provider Emergency Medicine; PCP Internal Medicine; Visit Provider Radiology Diagnostic Radiology | DX: J18.9 Pneumonia, unspecified organism (principal) | CPT/HCPCS: 71045 ==

== ENCOUNTER → 2025-03-29 15:15 | Outpatient (BNV) | payer MEDICARE, MEDICAID, SELFPAY | PROVIDERS: Admitting Provider Internal Medicine; Emergency Provider Emergency Medicine; PCP Internal Medicine; Visit Provider Internal Medicine | DX: R94.31 Abnormal electrocardiogram [ECG] [EKG] (principal); R06.02 Shortness of breath | CPT/HCPCS: 93010 ==

== ENCOUNTER → 2025-03-29 15:50 | Outpatient (BNV) | payer MEDICARE, MEDICAID, SELFPAY | PROVIDERS: Emergency Provider Emergency Medicine; PCP Internal Medicine; Visit Provider Internal Medicine | DX: J44.9 Chronic obstructive pulmonary disease, unspecified (principal) | CPT/HCPCS: 99223; 99232; 99233; 99239 ==

== ENCOUNTER 2025-03-29 17:41 | Outpatient (BNV) | payer MEDICARE, MEDICAID, SELFPAY | END 2025-03-30 07:00 | PROVIDERS: Admitting Provider Internal Medicine; Emergency Provider Emergency Medicine; PCP Internal Medicine; Visit Provider Internal Medicine | DX: I50.9 Heart failure, unspecified (principal); I35.8 Other nonrheumatic aortic valve disorders | CPT/HCPCS: 93306 ==